=== PATIENT | male | born 1955 | race Caucasian/White ===

== ENCOUNTER 2016-12-17 12:17 | Day surgery (SDC) | payer OTHER ==
[2016-12-17 12:56] VITALS: RESP 16; TEMP 97.9
[2016-12-17] MEDS ORDERED: ALPRAZolam 0.5 MG TAB PO STA (12:57)
[2016-12-17 13:51] VITALS: BP 137/63; PULSE 89
--- NOTE | 2016-12-17 14:42 | US ---
ULTRASOUND GUIDED CORE BIOPSY RIGHT BACK SOFT TISSUE MASS: CLINICAL HISTORY: Right neck soft tissue mass FINDINGS: The procedure was explained to the patient. The risks, complications, benefits and alternatives were discussed and any questions were answered. Informed consent was obtained. Patient was placed supin e on the ultrasound table and prepped and draped in the usual sterile fashion. Utilizing a 18 gauge needle, 3 18-gauge core samples were obtained. Patient was stable throughout the procedure. Pathology is pending. All elements of maximal barrier and sterile technique were utilized. IMPRESSION: 1. Successful ultrasound guided core biopsy soft tissue mass right back
== END 2016-12-17 13:45 | disposition home or self-care (01) ==
LOC: RADPROMAIN 12:17
PROVIDERS: ATTEND Surgery
DX: C83.30 Diffuse large B-cell lymphoma, unspecified site (principal)
CPT/HCPCS: 20206; 76942; 88305; 88341; 88342

== ENCOUNTER → 2016-12-27 | Outpatient (CLI) | payer OTHER ==
--- NOTE | 2016-12-30 15:37 | PE ---
Nuclear medicine PET/CT HISTORY: Lymphoma Patient received 15.8 mCi F-18 FDG intravenously. Delayed scanning performed from the skull base to t he mid thighs. Localization and attenuation correction CT scan was formed. Correlation to prior nuclear medicine PET/CT 09/30/2014. Neck and chest: The palatine tonsils show hypermetabolic uptake, SUV 13 on the left, 8.6 on the right , jugular digastric node on the left shows SUV 4.4, interval findings. Lymph node deep to the left st ernocleidomastoid on the left shows hypermetabolic uptake, SUV 6.5 and new compared to prior. Supracl avicular node on the left shows hypermetabolic uptake, SUV 9.8. Right axillary nodes show SUV 6.4-7.5 . Chest wall laterally on the right kidney is region again noted is a mass, central decreased activit y, peripherally lesion measures SUV approximately 13-14. In the presternal location there is some sof t tissue with associated hypermetabolic uptake, SUV 13.6. The large axillary mass seen on previous exam is no longer evident. Multiple scattered foci of hyperm etabolic uptake seen on previous exam are no longer seen. Extensive emphysematous changes are present within the lungs. Right upper lobe nodule measures 12 mm has decreased in size compared to prior whe n it measured 17 mm, no significant hypermetabolic uptake. Consolidation at the left lung base has re solved.. Abdomen pelvis: Subcutaneous soft tissue mass at the level of L1-2 in the right posterior paracentral soft tissues measures 21 mm and shows SUV 13.1. Additional subcutaneous nodule along the left leg sh ows SUV 4.5 and is subcentimeter in size. The spleen is enlarged. There is a gallstone present. No re troperitoneal adenopathy. Infrarenal abdominal aorta measures 3 cm. Extensive diverticular change in the sigmoid colon. IMPRESSION: Interval changes as described. Interval development of abnormal foci within the neck is d escribed, some improvement in the right upper chest uptake.
== END | disposition home or self-care (01) ==
LOC: RADXRMAIN 13:48
PROVIDERS: ATTEND Internal Medicine Hematology & Oncology
DX: C83.39 Diffuse large B-cell lymphoma, extranodal and solid organ sites (principal); R94.8 Abnormal results of function studies of other organs and systems
CPT/HCPCS: 78815; A9552

== ENCOUNTER 2017-01-07 07:57 | Inpatient (IN) | payer OTHER ==
[2017-01-07 09:40] LABS: ALT 35 U/L (21-72); AST 24 U/L (17-59); Alkaline Phosphatase 101 U/L (38-126); Anion Gap 10 mmol/L; Blood Urea Nitrogen 23 mg/dL (9-20); Calcium 9.4 mg/dL (8.4-10.2); Carbon Dioxide 24 mmol/L (22-30); Chloride 109 mmol/L (98-107); Glucose 98 mg/dL (74-99); Non-African American GFR(MDRD) >60 (>60 ml/min/1.73 sqM); Sodium 143 mmol/L (137-145); Total Bilirubin 0.5 mg/dL (0.2-1.3); Total Protein 6.8 g/dL (6.3-8.2)
[2017-01-07 09:47] LABS: Anisocytosis Slight; Basophils % (A) 0 %; CH 30.6; CHCM 34.7; Eosinophils # (A) 0.2 k/uL (0-0.7); Eosinophils % (A) 3 %; HDW 3.78; HGB 12.9 gm/dL (13.0-17.5); Luc % (Auto) 2; Lymphocytes # (A) 0.5 k/uL (1.0-4.8); Lymphocytes % (A) 8 %; MCH 30.3 pg (25.0-35.0); Mean Platelet Volume 7.2; Monocytes # (A) 0.4 k/uL (0-1.0); Monocytes % (A) 6 %; Neutrophils # (A) 4.9 k/uL (1.3-7.7); Neutrophils % (A) 82 %; Poikilocytosis Slight; RBC 4.27 m/uL (4.30-5.90); RDW 16.2 % (11.5-15.5)
[2017-01-07] MEDS: FAMOTIDINE 20 MG/2 ML VIAL IVP SCH (10:13)
[2017-01-07] MEDS: ONDANSETRON 16 MG in SODIUM CHLORIDE 0.9% 50 ML IVPB SCH (10:13)
[2017-01-07] MEDS: SODIUM CHLORIDE 0.9% 1,000 ML IV SCH ×2 (10:14→22:06)
[2017-01-07] MEDS ORDERED: diphenhydrAMINE 50 MG/ML 1 ML VIAL IVP ONE (11:00)
[2017-01-07] MEDS ORDERED: ACETAMINOPHEN TAB 325 MG TAB PO ONE (11:00)
[2017-01-07] MEDS ORDERED: methylPREDNISolone SOD SUCCI 125 MG/2 ML VIAL IV ONE (11:00)
[2017-01-07] MEDS ORDERED: ONDANSETRON 4 MG/2 ML VIAL IVP PRN (12:00)
[2017-01-07] MEDS ORDERED: RITUXIMAB IV NR (21:00)
[2017-01-07] MEDS ORDERED: ETOPOSIDE IV SCH (21:00)
[2017-01-07] MEDS ORDERED: SODIUM CHLORIDE 0.9% IV NR (21:00)
[2017-01-07] MEDS ORDERED: SODIUM CHLORIDE 0.9% IV SCH (21:00)
[2017-01-07] MEDS: ALLOPURINOL 300 MG TAB PO SCH (22:04)
--- NOTE | 2017-01-08 00:03 | P.HPIM ---
History of Present Illness H&P Date: 01/07/17 Chief Complaint: diffuse large B cell lymphoma. High-dose infusional chemotherapy the patient is a 61-year-old white male, well known to myself. He had initially presented in 09/04 with a right lower back mass. Biopsy was positive for diffuse large B-cell non-Hodgkin's report. PET scan at that time showed evidence of adenopathy above and below the diaphragm. The patient was treated with 6 cycles of RCHOP, which he tolerated well. He appeared to have achieved a complete remission. he was followed with office visits, labs and CAT scans still 06/05 with no evidence of recurrence. He then did not keep further appointments. He then presented again in 12/07, with complains of recurrent right lower back mass. He was seen by Dr. Segura, and had a CT-guided needle biopsy, which was positive for recurrent diffuse large B cell lymphoma. He was then referred back in seen in the office. PET scan showed uptake in the neck nodes, presternal soft tissue, as well as subcutaneous tissue including the right lower back, and left thigh. Second line chemotherapy was recommended with the RICU regimen. He is being admitted for cycle 1 of the same. Review of Systems Constitutional: Denies chills, Denies fever Eyes: denies blurred vision, denies pain Ears: deny: decreased hearing, ear discharge, earache, tinnitus Ears, nose, mouth and throat: Denies headache, Denies sore throat Cardiovascular: Denies chest pain, Denies shortness of breath Respiratory: Denies cough Gastrointestinal: Denies abdominal pain, Denies diarrhea, Denies nausea, Denies vomiting Genitourinary: Reports as per HPI Musculoskeletal: Denies myalgias Integumentary: Reports as per HPI, Reports lesions ( Nodular mass and right lower back, as well as left upper thigh) Neurological: Denies numbness, Denies weakness Psychiatric: Denies anxiety, Denies depression Endocrine: Denies fatigue, Denies weight change Hematologic/Lymphatic: Reports as per HPI, Reports lymphadenopathy Past Medical History Past Medical History: Cancer, Pneumonia Additional Past Medical History / Comment(s): 2000 diagnosed with CLL treated with chemo, current mass over R scapula, pt states he now has diffuse large B cell lymphoma-here for chemo tx, pancytopenia, ITP, anemia, pneumonia with sepsis. History of Any Multi-Drug Resistant Organisms: None Reported Past Surgical History: No Surgical Hx Reported Additional Past Surgical History / Comment(s): 2015 BMA, R upper back mass- needle bx, colonoscopy-normal, power port. Past Anesthesia/Blood Transfusion Reactions: No Reported Reaction Additional Past Anesthesia/Blood Transfusion Reaction / Comment(s): Pt has received blood in the past without reaction. Smoking Status: Current every day smoker - Past Family History Father Additional Family Medical History / Comment(s): Father was an alcoholic. He committed suicide. Mother Family Medical History: Cancer Additional Family Medical History / Comment(s): Mother had Breast Cancer 25 yrs ago. She is 85yrs old. Medications and Allergies Home Medications Medication Instructions Recorded Confirmed Type Aspirin EC [Ecotrin] 325 mg PO DAILY tablet. 12/21/14 01/07/17 Rx Multivitamin [Men's Multi-Vitamin] 1 tab PO DAILY 12/11/16 01/07/17 History Vitamin B Complex 1 cap PO DAILY 12/11/16 01/07/17 History Allergies Allergy/AdvReac Type Severity Reaction Status Date / Time No Known Allergies Allergy Verified 01/07/17 08:32 Physical Exam Vitals: Vital Signs Temp Pulse Resp BP Pulse Ox 01/07/17 22:19 98.2 F 97 16 185/79 96 01/07/17 14:50 98.1 F 75 16 140/74 95 01/07/17 14:20 74 141/65 97 01/07/17 13:50 98 F 78 16 155/70 97 01/07/17 13:35 86 159/84 97 01/07/17 13:20 97.6 F 82 16 156/89 97 01/07/17 13:05 69 16 144/71 97 01/07/17 12:50 98 F 89 16 149/77 97 01/07/17 12:35 67 16 148/77 97 01/07/17 12:20 97.8 F 78 16 154/81 96 01/07/17 12:05 70 16 147/78 97 01/07/17 11:50 98.1 F 78 16 131/80 97 01/07/17 11:35 68 16 147/78 97 01/07/17 11:28 98.1 F 74 16 157/78 97 01/07/17 08:42 97.9 F 83 20 177/89 97 Intake and Output 01/07/17 01/07/17 01/08/17 14:59 22:59 06:59 Intake Total 974.9 Balance 974.9 Intake: IV 375 Sodium Chloride 0.9% 1, 375 000 ml @ 75 mls/hr IV . [id number] [facility] Rx#:[id number] Intake, IV Titration 599.9 Amount Ondansetron 16 mg In 50 Sodium Chloride 0.9% 50 ml @ 100 mls/hr IVPB Q24H [facility] Rx#:[id number] riTUXimab 740 mg In 549.9 Sodium Chloride 0.9% 500 ml @ Titrate 39 mls/hr IV .[id number] [facility] Rx#: [id number] - Constitutional General appearance: no acute distress - EENT Eyes: EOMI, PERRLA ENT: hearing grossly normal, normal oropharynx - Neck Neck: lymphadenopathy ( shortly right supraclavicular adenopathy largest 1-1.5 cm) - Respiratory Respiratory: bilateral: CTA - Cardiovascular Rhythm: regular Heart sounds: normal: S1, S2 - Gastrointestinal General gastrointestinal: normal bowel sounds, soft - Integumentary 3-4 cm firm mass with ill-defined margins, right lower back. Smaller 1.5-2 cm mass left upper thigh - Neurologic Neurologic: CNII-XII intact - Musculoskeletal Musculoskeletal: strength equal bilaterally - Psychiatric Psychiatric: A&O x's 3, appropriate affect Results CBC & Chem 7: 01/07/17 09:15 01/07/17 09:15 Labs: Abnormal Lab Results - Last 24 Hours (Table) 01/07/17 01/07/17 Range/Units 09:15 09:15 RBC 4.27 L (4.30-5.90) m/uL Hgb 12.9 L (13.0-17.5) gm/dL Hct 38.0 L (39.0-53.0) % RDW 16.2 H (11.5-15.5) % Plt Count 144 L (150-450) k/uL Lymphocytes # 0.5 L (1.0-4.8) k/uL Chloride 109 H (98-107) mmol/L BUN 23 H (9-20) mg/dL Comments: PET scan report reviewed above Thrombosis Risk Factor Assmnt - DVT/VTE Prophylaxis DVT/VTE Prophylaxis: Pharmacologic Prophylaxis ordered - Choose All That Apply Other Risk Factors: Yes Each Risk Factor Represents 2 Points: Age 61-74 years, Malignancy Other congenital or acquired thrombophilia - If yes, enter type in comment: No Thrombosis Risk Factor Assessment Total Risk Factor Score: 4 Thrombosis Risk Factor Assessment Level: Moderate Risk Assessment and Plan (1) Non-Hodgkin lymphoma Narrative/Plan: the patient has developed fairly extensive recurrence of diffuse large B- cell lymphoma. He has previously received RCHOP chemotherapy. He is being admitted for high-dose infusional RICE chemotherapy for salvage. The regimen was discussed with him in detail. He is being admitted to start cycle 1. - the patient really wanted her closely with clinical exams and labs during' s admission. Adjustment will be made to his regimen as needed. he is also on allopurinol to prevent tumor lysis Current Visit: No Status: Acute Code(s): C85.90 - NON-HODGKIN LYMPHOMA, UNSPECIFIED, UNSPECIFIED SITE SNOMED Code(s): 032893223 Plan: DVT prophylaxis
[2017-01-08 06:22] LABS: Basophils % (A) 0 %; CHCM 34.1; Eosinophils # (A) 0.2 k/uL (0-0.7); Eosinophils % (A) 2 %; HCT 35.2 % (39.0-53.0); HDW 3.81; HGB 11.6 gm/dL (13.0-17.5); Luc # (Auto) 0.03; Luc % (Auto) 0; Lymphocytes # (A) 0.3 k/uL (1.0-4.8); Lymphocytes % (A) 4 %; MCH 29.3 pg (25.0-35.0); MCV 88.7 fL (80.0-100.0); Mean Platelet Volume 6.6; Monocytes # (A) 0.3 k/uL (0-1.0); Monocytes % (A) 4 %; Neutrophils # (A) 8.4 k/uL (1.3-7.7); Neutrophils % (A) 91 %; Poikilocytosis Slight; RBC 3.97 m/uL (4.30-5.90); RDW 15.2 % (11.5-15.5); WBC 9.2 k/uL (3.8-10.6); WBC (Perox) 9.29
[2017-01-08 06:36] LABS: ALT 33 U/L (21-72); AST 18 U/L (17-59); Alkaline Phosphatase 86 U/L (38-126); Anion Gap 8 mmol/L; Blood Urea Nitrogen 23 mg/dL (9-20); Calcium 8.7 mg/dL (8.4-10.2); Carbon Dioxide 22 mmol/L (22-30); Chloride 114 mmol/L (98-107); Glucose 150 mg/dL (74-99); Non-African American GFR(MDRD) >60 (>60 ml/min/1.73 sqM); Phosphorus 2.8 mg/dL (2.5-4.5); Sodium 144 mmol/L (137-145); Total Bilirubin 0.3 mg/dL (0.2-1.3); Total Protein 5.5 g/dL (6.3-8.2); Uric Acid 5.3 mg/dL (3.5-8.5)
[2017-01-08 06:56] LABS: Potassium 4.1 mmol/L (3.5-5.1)
[2017-01-08] MEDS: MULTIVITAMINS, THERA 1 EACH TAB PO SCH (08:04)
[2017-01-08] MEDS: B COMPLEX-VIT C-VIT E-ZINC 1 EACH TAB PO SCH (08:04)
[2017-01-08] MEDS: ASPIRIN 325 MG TAB PO SCH (08:04)
[2017-01-08] MEDS: ALLOPURINOL 300 MG TAB PO SCH (08:04)
[2017-01-08] MEDS: ENOXAPARIN 40 MG/0.4 ML SYRINGE SQ SCH (09:08)
[2017-01-08] MEDS: SODIUM CHLORIDE 0.9% 1,000 ML IV SCH ×2 (09:09→23:55)
[2017-01-08] MEDS: ONDANSETRON 16 MG in SODIUM CHLORIDE 0.9% 50 ML IVPB SCH (12:37)
[2017-01-08] MEDS: DEXAMETHASONE SOD PHOSPHATE 10 MG/ML 1 ML VIAL IV SCH (12:37)
[2017-01-08] MEDS: FAMOTIDINE 20 MG/2 ML VIAL IVP SCH (12:37)
[2017-01-08] MEDS ORDERED: IFOSFAMIDE 9,000 MG, IFOSFAMIDE 1,000 MG in SODIUM CHLORIDE 0.9% 1,000 ML IV ONE (13:30)
[2017-01-08] MEDS ORDERED: MESNA IV ONE (13:30)
[2017-01-08] MEDS ORDERED: CARBOPLATIN IV ONE (13:30)
[2017-01-08] MEDS ORDERED: SODIUM CHLORIDE 0.9% IV ONE ×2 (13:30)
[2017-01-08] MEDS: SODIUM CHLORIDE 0.9% IV SCH (13:59)
[2017-01-08] MEDS: ETOPOSIDE IV SCH (13:59)
--- NOTE | 2017-01-09 01:04 | P.PN ---
Subjective Progress Note Date: 01/08/17 the patient is on day #2 of RICD infusional chemotherapy for his recurrent large B-cell lymphoma. He is tolerating treatment well so far. He denies any untoward side effects. No history of any fever/chills/nausea/vomiting/new lymphadenopathy Objective - Vital Signs Vital signs: Vital Signs Temp 96.7 F L 01/08/17 23:00 Pulse 81 01/08/17 23:00 Resp 16 01/08/17 23:00 BP 151/72 01/08/17 23:00 Pulse Ox 97 01/08/17 23:00 Intake & Output 01/08/17 01/08/17 01/09/17 06:59 18:59 06:59 Intake Total 900 1860 612 Balance 900 1860 612 Intake: IV 900 600 612 Ifosfamide 9,000 mg 220 Ifosfamide 1,000 mg In Sodium Chloride 0.9% 1, 000 ml @ 50 mls/hr IV ONCE [facility] Rx#:[id number] [place] 10,000 mg In Sodium 92 Chloride 0.9% 500 ml @ 25 mls/hr IV ONCE ONE Rx# :[id number] Sodium Chloride 0.9% 1, 900 600 300 000 ml @ 75 mls/hr IV . [id number] [facility] Rx#:[id number] Intake, IV Titration 760 Amount CARBOplatin 450 mg 250 CARBOplatin 30 mg In Sodium Chloride 0.9% 250 ml @ 596 mls/hr IV ONCE ONE Rx#:[id number] Etoposide 200 mg In 510 Sodium Chloride 0.9% ( Dehp Saroj 500 ml @ 510 mls /hr IV Q24H [facility] Rx#: [id number] Oral 500 Other: Voiding Method Toilet Toilet - Constitutional General appearance: Present: no acute distress - EENT Eyes: Present: PERRLA ENT: Present: hearing grossly normal, normal oropharynx - Respiratory Respiratory: bilateral: CTA - Cardiovascular Rhythm: regular Heart sounds: normal: S1, S2 - Gastrointestinal General gastrointestinal: Present: normal bowel sounds, soft - Integumentary Integumentary Comment(s): skin nodules on back and abdominal wall stable - Neurologic Neurologic: Present: CNII-XII intact - Musculoskeletal Musculoskeletal: Present: generalized weakness, strength equal bilaterally - Psychiatric Psychiatric: Present: A&O x's 3, appropriate affect - Labs CBC & Chem 7: 01/08/17 06:15 01/08/17 06:15 Labs: Abnormal Lab Results - Last 24 Hours (Table) 01/08/17 01/08/17 Range/Units 06:15 06:15 RBC 3.97 L (4.30-5.90) m/uL Hgb 11.6 L (13.0-17.5) gm/dL Hct 35.2 L (39.0-53.0) % Plt Count 143 L (150-450) k/uL Neutrophils # 8.4 H (1.3-7.7) k/uL Lymphocytes # 0.3 L (1.0-4.8) k/uL Chloride 114 H (98-107) mmol/L BUN 23 H (9-20) mg/dL Glucose 150 H (74-99) mg/dL Total Protein 5.5 L (6.3-8.2) g/dL Albumin 3.3 L (3.5-5.0) g/dL Assessment and Plan (1) Non-Hodgkin lymphoma Narrative/Plan: the patient is on day #2 of his high-dose infusional chemotherapy regimen, that is being administered for salvage. He is tolerating treatment well so far. Labs and vitals are satisfactory. Continue treatment per protocol. Continue to monitor with clinical exams and labs, which have been ordered. He is continuing on allopurinol, with no evidence of tumor lysis by labs so far Current Visit: No Status: Acute Code(s): C85.90 - NON-HODGKIN LYMPHOMA, UNSPECIFIED, UNSPECIFIED SITE SNOMED Code(s): 297004472 Plan: DVT prophylaxis
[2017-01-09 07:11] LABS: Phosphorus 2.8 mg/dL (2.5-4.5); Uric Acid 3.7 mg/dL (3.5-8.5)
[2017-01-09 07:59] VITALS: RESP 18
[2017-01-09] MEDS: ASPIRIN 325 MG TAB PO SCH (08:14)
[2017-01-09] MEDS: ENOXAPARIN 40 MG/0.4 ML SYRINGE SQ SCH (08:14)
[2017-01-09] MEDS: MULTIVITAMINS, THERA 1 EACH TAB PO SCH (08:14)
[2017-01-09] MEDS: ALLOPURINOL 300 MG TAB PO SCH (08:14)
[2017-01-09] MEDS: B COMPLEX-VIT C-VIT E-ZINC 1 EACH TAB PO SCH (08:14)
[2017-01-09 10:31] LABS: Anisocytosis Slight; Basophils % (A) 0 %; CH 31.3; CHCM 34.1; Eosinophils % (A) 0 %; HCT 34.2 % (39.0-53.0); HDW 3.43; HGB 11.4 gm/dL (13.0-17.5); Luc # (Auto) 0.02; Luc % (Auto) 0; Lymphocytes # (A) 0.2 k/uL (1.0-4.8); Lymphocytes % (A) 3 %; MCH 30.7 pg (25.0-35.0); MCHC 33.2 g/dL (31.0-37.0); MCV 92.5 fL (80.0-100.0); Mean Platelet Volume 8.5; Monocytes # (A) 0.2 k/uL (0-1.0); Monocytes % (A) 3 %; Neutrophils # (A) 6.9 k/uL (1.3-7.7); Neutrophils % (A) 93 %; Poikilocytosis Slight; RDW 17.3 % (11.5-15.5); WBC 7.5 k/uL (3.8-10.6); WBC (Perox) 7.91
[2017-01-09 11:31] LABS: ALT 38 U/L (21-72); AST 17 U/L (17-59); Alkaline Phosphatase 69 U/L (38-126); Anion Gap 8 mmol/L; Blood Urea Nitrogen 16 mg/dL (9-20); Carbon Dioxide 19 mmol/L (22-30); Chloride 117 mmol/L (98-107); Glucose 103 mg/dL (74-99); Non-African American GFR(MDRD) >60 (>60 ml/min/1.73 sqM); Potassium 3.5 mmol/L (3.5-5.1); Sodium 144 mmol/L (137-145); Total Bilirubin 0.3 mg/dL (0.2-1.3); Total Protein 5.2 g/dL (6.3-8.2)
[2017-01-09] MEDS: ONDANSETRON 16 MG in SODIUM CHLORIDE 0.9% 50 ML IVPB SCH (14:42)
[2017-01-09] MEDS: FAMOTIDINE 20 MG/2 ML VIAL IVP SCH (14:43)
[2017-01-09] MEDS: DEXAMETHASONE SOD PHOSPHATE 10 MG/ML 1 ML VIAL IV SCH (14:43)
[2017-01-09] MEDS: SODIUM CHLORIDE 0.9% IV SCH (15:31)
[2017-01-09] MEDS: ETOPOSIDE IV SCH (15:31)
[2017-01-09 15:59] VITALS: BP 150/79; PULSE 83; TEMP 98.7
--- NOTE | 2017-04-19 22:18 | P.DS ---
Providers Date of admission: 01/07/17 07:57 Expected date of discharge: 01/09/17 Attending physician: Jeffry Andrade Primary care physician: Stated None - Discharge Diagnosis(es) (1) Non-Hodgkin lymphoma Status: Chronic Priority: High Hospital Course: The patient is a 61-year-old white male, well known to myself. He had initially presented in 09/04 with a right lower back mass. Biopsy was positive for diffuse large B-cell non-Hodgkin's report. PET scan at that time showed evidence of adenopathy above and below the diaphragm. The patient was treated with 6 cycles of RCHOP, which he tolerated well. He appeared to have achieved a complete remission. he was followed with office visits, labs and CAT scans still 06/05 with no evidence of recurrence. He then did not keep further appointments. He then presented again in 12/07, with complains of recurrent right lower back mass. He was seen by Dr. Segura, and had a CT-guided needle biopsy, which was positive for recurrent diffuse large B cell lymphoma. He was then referred back in seen in the office. PET scan showed uptake in the neck nodes, presternal soft tissue, as well as subcutaneous tissue including the right lower back, and left thigh. Second line chemotherapy was recommended with the RICU regimen. He was admitted for cycle 1 of the same. The pt tolerated chemo well, with no untoward side effects. He was monitored with labs and clinical exams. After completion of of chemo, it was decided to discharge him home. Procedures: High dose infusional chemo Patient Condition at Discharge: Good Plan - Discharge Summary Discharge Rx Participant: No New Discharge Prescriptions: New Ondansetron HCl [Zofran] 4 mg PO Q6HR PRN #50 tab PRN Reason: Nausea And Vomiting No Action Multivitamin [Men's Multi-Vitamin] 1 tab PO DAILY Vitamin B Complex 1 cap PO DAILY Folic Acid 0.4 mg PO DAILY Ferrous Sulfate [Feosol] 325 mg PO Q72H Cyanocobalamin (Vitamin B-12) [Vitamin B-12] 1,000 mcg PO DAILY Aspirin EC [Ecotrin Low Dose] 81 mg PO DAILY Filgrastim Sndz [Neupogen] 480 mcg IJ DIRECTED Atorvastatin [Lipitor] 40 mg PO DAILY #30 tab Isosorbide Mononitrate ER [Imdur] 30 mg PO DAILY #30 tab Metoprolol Succinate (ER) [Toprol XL] 25 mg PO DAILY #30 tab.er.24h Discharge Medication List Multivitamin [Men's Multi-Vitamin] 1 tab PO DAILY 12/11/16 [History] Vitamin B Complex 1 cap PO DAILY 12/11/16 [History] Ondansetron HCl [Zofran] 4 mg PO Q6HR PRN #50 tab 01/09/17 [Rx] Cyanocobalamin (Vitamin B-12) [Vitamin B-12] 1,000 mcg PO DAILY 02/18/17 [ History] Ferrous Sulfate [Feosol] 325 mg PO Q72H 02/18/17 [History] Folic Acid 0.4 mg PO DAILY 02/18/17 [History] Aspirin EC [Ecotrin Low Dose] 81 mg PO DAILY 03/17/17 [History] Filgrastim Sndz [Neupogen] 480 mcg IJ DIRECTED 04/15/17 [History] Atorvastatin [Lipitor] 40 mg PO DAILY #30 tab 04/16/17 [Rx] Isosorbide Mononitrate ER [Imdur] 30 mg PO DAILY #30 tab 04/16/17 [Rx] Metoprolol Succinate (ER) [Toprol XL] 25 mg PO DAILY #30 tab.er.24h 04/16/17 [Rx ] Follow up Appointment(s)/Referral(s): Jeffry Andrade MD [STAFF PHYSICIAN] - 01/12/17 9:45 am (At [facility] Office) Patient Instructions/Handouts: Allopurinol (By mouth), Ondansetron (By mouth), Oral Mucositis (DC) Discharge Disposition: HOME SELF-CARE
== END 2017-01-09 18:36 | disposition home or self-care (01) | DRG 847 ==
LOC: 5ONC 07:57
PROVIDERS: ADMIT Internal Medicine Hematology & Oncology; ATTEND Internal Medicine Hematology & Oncology
PROC: 3E0W305 Introduction of Other Antineoplastic into Lymphatics, Percutaneous Approach (ICD-10-PCS; principal; 2017-01-07)
DX: Z51.11 Encounter for antineoplastic chemotherapy (principal); C83.30 Diffuse large B-cell lymphoma, unspecified site; D69.3 Immune thrombocytopenic purpura; F17.200 Nicotine dependence, unspecified, uncomplicated; R53.1 Weakness; Z79.82 Long term (current) use of aspirin; Z80.3 Family history of malignant neoplasm of breast; Z81.1 Family history of alcohol abuse and dependence; Z87.01 Personal history of pneumonia (recurrent)
CPT/HCPCS: 80053; 84100; 84550; 85025

== ENCOUNTER 2017-01-28 07:56 | Inpatient (IN) | payer OTHER ==
[2017-01-28] MEDS ORDERED: ONDANSETRON 4 MG/2 ML VIAL IVP PRN (08:00)
[2017-01-28] MEDS: SODIUM CHLORIDE 0.9% 1,000 ML IV SCH (10:26)
[2017-01-28] MEDS: ALLOPURINOL 300 MG TAB PO SCH (10:28)
[2017-01-28 10:46] LABS: Anisocytosis Moderate; Basophils % (A) 0 %; CH 29.5; CHCM 35.1; Eosinophils % (A) 0 %; HCT 28.9 % (39.0-53.0); HDW 3.84; HGB 10.1 gm/dL (13.0-17.5); Luc % (Auto) 1; Lymphocytes # (A) 0.3 k/uL (1.0-4.8); Lymphocytes % (A) 4 %; MCH 29.6 pg (25.0-35.0); MCHC 34.8 g/dL (31.0-37.0); Mean Platelet Volume 7.7; Monocytes # (A) 0.3 k/uL (0-1.0); Monocytes % (A) 4 %; Neutrophils # (A) 7.9 k/uL (1.3-7.7); Neutrophils % (A) 91 %; Poikilocytosis Slight; RDW 20.1 % (11.5-15.5); WBC 8.7 k/uL (3.8-10.6); WBC (Perox) 9.64
[2017-01-28 11:07] LABS: MCV 84.9 fL (80.0-100.0)
[2017-01-28 11:15] LABS: ALT 44 U/L (21-72); AST 21 U/L (17-59); Alkaline Phosphatase 120 U/L (38-126); Anion Gap 8 mmol/L; Blood Urea Nitrogen 18 mg/dL (9-20); Calcium 9.1 mg/dL (8.4-10.2); Carbon Dioxide 22 mmol/L (22-30); Chloride 111 mmol/L (98-107); Glucose 108 mg/dL (74-99); Non-African American GFR(MDRD) >60 (>60 ml/min/1.73 sqM); Potassium 3.9 mmol/L (3.5-5.1); Sodium 141 mmol/L (137-145); Total Bilirubin 0.2 mg/dL (0.2-1.3); Total Protein 6.3 g/dL (6.3-8.2)
[2017-01-28] MEDS ORDERED: ACETAMINOPHEN TAB 325 MG TAB PO ONE ×2 (12:00→21:00)
[2017-01-28] MEDS ORDERED: diphenhydrAMINE 50 MG/ML 1 ML VIAL IVP ONE ×2 (12:00→21:00)
[2017-01-28] MEDS ORDERED: SODIUM CHLORIDE 0.9% IV ONE (13:00)
[2017-01-28] MEDS ORDERED: RITUXIMAB IV ONE (13:00)
[2017-01-28] MEDS ORDERED: ETOPOSIDE 200 MG in SODIUM CHLORIDE 0.9% 500 ML IV SCH (17:00)
[2017-01-28] MEDS ORDERED: FAMOTIDINE 20 MG/2 ML VIAL IV SCH (21:00)
[2017-01-28] MEDS ORDERED: ONDANSETRON 16 MG in SODIUM CHLORIDE 0.9% 50 ML IVPB SCH (21:00)
[2017-01-28] MEDS ORDERED: methylPREDNISolone SOD SUCCI 125 MG/2 ML VIAL IV ONE (21:00)
--- NOTE | 2017-01-28 21:57 | P.HPIM ---
History of Present Illness H&P Date: 01/28/17 Chief Complaint: High dose infusional chemo for Diffuse Large B Cell Lymphoma The patient is a 61-year-old white male, well known to myself. He had initially presented in 09/04 with a right lower back mass. Biopsy was positive for diffuse large B-cell non-Hodgkin's report. PET scan at that time showed evidence of adenopathy above and below the diaphragm. The patient was treated with 6 cycles of RCHOP, which he tolerated well. He appeared to have achieved a complete remission. he was followed with office visits, labs and CAT scans still 06/05 with no evidence of recurrence. He then did not keep further appointments. He then presented again in 12/07, with complains of recurrent right lower back mass. He was seen by Dr. Segura, and had a CT-guided needle biopsy, which was positive for recurrent diffuse large B cell lymphoma. He was then referred back in seen in the office. PET scan showed uptake in the neck nodes, presternal soft tissue, as well as subcutaneous tissue including the right lower back, and left thigh. Second line chemotherapy was recommended with the RICE regimen. He has completed 1 cycle, which he tolerated well. He is being admitted for cycle 2 of the same. Review of Systems Constitutional: Reports fatigue Eyes: denies blurred vision, denies pain Ears: deny: decreased hearing, ear discharge, earache, tinnitus Ears, nose, mouth and throat: Denies headache, Denies sore throat Cardiovascular: Denies chest pain, Denies shortness of breath Respiratory: Denies cough Gastrointestinal: Denies abdominal pain, Denies diarrhea, Denies nausea, Denies vomiting Genitourinary: Reports as per HPI Musculoskeletal: Denies myalgias Integumentary: Reports lesions ([place] back nodule resolved. Rt upper back nodule diminished) Neurological: Denies numbness, Denies weakness Psychiatric: Denies anxiety, Denies depression Hematologic/Lymphatic: Reports as per HPI, Reports lymphadenopathy Past Medical History Past Medical History: Cancer, Pneumonia Additional Past Medical History / Comment(s): 2000 diagnosed with CLL treated with chemo, recurrent mass R scapula area, pt states he now has diffuse large B cell lymphoma-here for chemo tx, pancytopenia, ITP, anemia, pneumonia with sepsis. History of Any Multi-Drug Resistant Organisms: None Reported Past Surgical History: No Surgical Hx Reported Additional Past Surgical History / Comment(s): 2015 BMA, R upper back mass- needle bxs, colonoscopy-normal, power port. Past Anesthesia/Blood Transfusion Reactions: No Reported Reaction Additional Past Anesthesia/Blood Transfusion Reaction / Comment(s): Pt has received blood in the past without reaction. Smoking Status: Current every day smoker - Past Family History Father Additional Family Medical History / Comment(s): Father was an alcoholic. He committed suicide. Mother Family Medical History: Cancer Additional Family Medical History / Comment(s): Mother had Breast Cancer 25 yrs ago. She is 85yrs old. Medications and Allergies Home Medications Medication Instructions Recorded Confirmed Type Aspirin EC [Ecotrin] 325 mg PO DAILY tablet. 12/21/14 01/28/17 Rx Multivitamin [Men's Multi-Vitamin] 1 tab PO DAILY 12/11/16 01/28/17 History Vitamin B Complex 1 cap PO DAILY 12/11/16 01/28/17 History Allopurinol [Zyloprim] 300 mg PO DAILY #14 tablet 01/09/17 01/28/17 Rx Ondansetron HCl [Zofran] 4 mg PO Q6HR PRN #50 tab 01/09/17 01/28/17 Rx Allergies Allergy/AdvReac Type Severity Reaction Status Date / Time No Known Allergies Allergy Verified 01/28/17 09:18 Physical Exam Vitals: Vital Signs Temp Pulse Resp BP Pulse Ox 01/28/17 14:16 98.9 F 89 14 143/76 98 01/28/17 08:29 98.6 F 89 14 145/81 98 Intake and Output 01/28/17 01/28/17 01/28/17 06:59 14:59 22:59 Intake Total 316.1 414.900 Balance 316.1 414.900 Intake: IV 262.5 Sodium Chloride 0.9% 1, 262.5 000 ml @ 75 mls/hr IV . [id number] [facility] Rx#:[id number] Intake, IV Titration 53.6 414.900 Amount riTUXimab 740 mg In 53.6 414.900 Sodium Chloride 0.9% 500 ml @ Titrate IV .Q0M [facility] Rx#:[id number] Other: Weight 79 kg Patient Weight 01/29/17 06:59 Weight 79 kg - Constitutional General appearance: no acute distress - EENT Eyes: EOMI, PERRLA ENT: hearing grossly normal, normal oropharynx - Neck Neck: no lymphadenopathy Thyroid: bilateral: normal size - Respiratory Respiratory: bilateral: CTA - Cardiovascular Rhythm: regular Heart sounds: normal: S1, S2 - Gastrointestinal General gastrointestinal: normal bowel sounds, soft - Integumentary lower mid back nodule resolved Rt upper back nodule significantly smaller - Neurologic Neurologic: CNII-XII intact - Musculoskeletal Musculoskeletal: strength equal bilaterally - Psychiatric Psychiatric: A&O x's 3, appropriate affect Results CBC & Chem 7: 01/28/17 10:10 01/28/17 10:10 Labs: Abnormal Lab Results - Last 24 Hours (Table) 01/28/17 01/28/17 Range/Units 10:10 10:10 RBC 3.40 L (4.30-5.90) m/uL Hgb 10.1 L (13.0-17.5) gm/dL Hct 28.9 L (39.0-53.0) % RDW 20.1 H (11.5-15.5) % Neutrophils # 7.9 H (1.3-7.7) k/uL Lymphocytes # 0.3 L (1.0-4.8) k/uL Chloride 111 H (98-107) mmol/L Glucose 108 H (74-99) mg/dL Thrombosis Risk Factor Assmnt - DVT/VTE Prophylaxis DVT/VTE Prophylaxis: Pharmacologic Prophylaxis ordered - Choose All That Apply Any of the Below Risk Factors Present?: Yes Other Risk Factors: Yes Each Risk Factor Represents 2 Points: Age 61-74 years, Malignancy Other congenital or acquired thrombophilia - If yes, enter type in comment: No Thrombosis Risk Factor Assessment Total Risk Factor Score: 4 Thrombosis Risk Factor Assessment Level: Moderate Risk Assessment and Plan (1) Non-Hodgkin lymphoma Narrative/Plan: The pt has completed 1 cycle of salvage chemo with R-ICE with good tolerance. He has had a clinical response, with improvement in the palpable skin nodules. He is being admitted for cycle #2. This will be given per protocol, with monitoring with labs and clinical exams Current Visit: No Status: Acute Code(s): C85.90 - NON-HODGKIN LYMPHOMA, UNSPECIFIED, UNSPECIFIED SITE SNOMED Code(s): 446412970 (2) Anemia aplastic aregenerative Narrative/Plan: Due to chemo. Hgb is in a safe range at > 10. Continue to monitor Current Visit: No Status: Acute Code(s): D61.9 - APLASTIC ANEMIA, UNSPECIFIED SNOMED Code(s): 342944210 Plan: DVT prophylaxis
[2017-01-28] MEDS: ENOXAPARIN 40 MG/0.4 ML SYRINGE SQ SCH (23:36)
[2017-01-29] MEDS: SODIUM CHLORIDE 0.9% 1,000 ML IV SCH ×2 (00:33→11:55)
[2017-01-29 06:30] LABS: Anisocytosis Slight; Basophils % (A) 0 %; CH 30.1; CHCM 35.2; Eosinophils % (A) 0 %; HCT 23.9 % (39.0-53.0); Luc % (Auto) 1; Lymphocytes # (A) 0.3 k/uL (1.0-4.8); Lymphocytes % (A) 2 %; MCH 29.4 pg (25.0-35.0); MCHC 34.1 g/dL (31.0-37.0); MCV 86.1 fL (80.0-100.0); Mean Platelet Volume 7.7; Monocytes # (A) 0.4 k/uL (0-1.0); Monocytes % (A) 2 %; Neutrophils # (A) 16.6 k/uL (1.3-7.7); Neutrophils % (A) 95 %; Poikilocytosis Moderate; RBC 2.78 m/uL (4.30-5.90); RDW 19.2 % (11.5-15.5); WBC 17.5 k/uL (3.8-10.6); WBC (Perox) 17.26
[2017-01-29 06:42] LABS: ALT 41 U/L (21-72); AST 19 U/L (17-59); Alkaline Phosphatase 109 U/L (38-126); Anion Gap 8 mmol/L; Blood Urea Nitrogen 16 mg/dL (9-20); Calcium 8.8 mg/dL (8.4-10.2); Carbon Dioxide 21 mmol/L (22-30); Chloride 112 mmol/L (98-107); Glucose 128 mg/dL (74-99); Non-African American GFR(MDRD) >60 (>60 ml/min/1.73 sqM); Potassium 4.1 mmol/L (3.5-5.1); Sodium 141 mmol/L (137-145); Total Bilirubin 0.3 mg/dL (0.2-1.3); Total Protein 5.9 g/dL (6.3-8.2)
[2017-01-29 06:44] LABS: HGB 8.2 gm/dL (13.0-17.5)
[2017-01-29] MEDS ORDERED: DOCUSATE 100 MG CAP PO PRN (08:33)
[2017-01-29] MEDS: ALLOPURINOL 300 MG TAB PO SCH (09:09)
[2017-01-29] MEDS: SALT AND SODA MOUTHWASH 1,000 ML PO SCH ×3 (11:55→21:59)
[2017-01-29] MEDS: DEXAMETHASONE SOD PHOSPHATE 10 MG/ML 1 ML VIAL IV SCH (17:45)
[2017-01-29] MEDS: FAMOTIDINE 20 MG/2 ML VIAL IV SCH (17:45)
[2017-01-29] MEDS: ONDANSETRON 16 MG in SODIUM CHLORIDE 0.9% 50 ML IVPB SCH (17:47)
--- NOTE | 2017-01-29 18:02 | P.PN ---
Subjective Progress Note Date: 01/29/17 Principal diagnosis: DLBCL, admit for R-ICE Pt seen in f/u, he denies fever, oral irritation, nausea, SOB, cough, indigestion, diarrhea, constipation, rash, swelling, bleeding or pain, he is fully ambulatory, appetite fair, energy levels ok. Objective - Vital Signs Vital signs: Vital Signs Temp 98 F 01/29/17 14:58 Pulse 92 01/29/17 14:58 Resp 18 01/29/17 14:58 BP 146/84 01/29/17 14:58 Pulse Ox 96 01/29/17 14:58 Intake & Output 01/28/17 01/29/17 01/29/17 18:59 06:59 18:59 Intake Total 391.036 3987 600 Balance 864.566 0647 600 Weight 79 kg Intake: IV 262.5 225 600 Sodium Chloride 0.9% 1, 262.5 225 600 000 ml @ 75 mls/hr IV . [id number] [facility] Rx#:[id number] Intake, IV Titration 468.500 450 Amount Etoposide 200 mg In 450 Sodium Chloride 0.9% 500 ml @ 510 mls/hr IV Q24H [facility] Rx#:[id number] riTUXimab 740 mg In 468.500 Sodium Chloride 0.9% 500 ml @ Titrate IV .Q0M [facility] Rx#:[id number] Oral 590 Other: # Voids 2 - Constitutional General appearance: Present: average body habitus, cooperative, no acute distress - EENT Eyes: Present: anicteric sclerae, normal appearance ENT: Present: normal oropharynx - Respiratory Respiratory: left: rales (lower lobe only), bilateral: CTA - Cardiovascular Rhythm: regular Heart sounds: normal: S1, S2 Abnormal Heart Sounds: Absent: systolic murmur, diastolic murmur, rub, S3 Gallop , S4 Gallop, click, other - Gastrointestinal General gastrointestinal: Present: normal bowel sounds, soft. Absent: absent bowel sounds, decreased bowel sounds, distended, hepatomegaly, hyperactive bowel sounds, organomegaly, rigid, scaphoid, splenomegaly, tenderness, umbilical hernia, ventral hernia - Integumentary Integumentary: Present: normal, normal turgor - Neurologic Neurologic: Present: CNII-XII intact - Musculoskeletal Musculoskeletal: Present: strength equal bilaterally - Psychiatric Psychiatric: Present: A&O x's 3, appropriate affect, intact judgment & insight - Labs CBC & Chem 7: 01/29/17 06:15 01/29/17 06:15 Labs: Abnormal Lab Results - Last 24 Hours (Table) 01/29/17 01/29/17 Range/Units 06:15 06:15 WBC 17.5 H (3.8-10.6) k/uL RBC 2.78 L (4.30-5.90) m/uL Hgb 8.2 L D (13.0-17.5) gm/dL Hct 23.9 L (39.0-53.0) % RDW 19.2 H (11.5-15.5) % Neutrophils # 16.6 H (1.3-7.7) k/uL Lymphocytes # 0.3 L (1.0-4.8) k/uL Chloride 112 H (98-107) mmol/L Carbon Dioxide 21 L (22-30) mmol/L Glucose 128 H (74-99) mg/dL Total Protein 5.9 L (6.3-8.2) g/dL Assessment and Plan (1) Non-Hodgkin lymphoma Narrative/Plan: Cont R-ICE chemo regimen without adjustment, supportive meds ordered. Current Visit: Yes Status: Acute Priority: High Code(s): C85.90 - NON- HODGKIN LYMPHOMA, UNSPECIFIED, UNSPECIFIED SITE SNOMED Code(s): 833575097 (2) Anemia aplastic aregenerative Narrative/Plan: Hgb drop noted, labs daily, no transfusion at this time. Current Visit: No Status: Chronic Priority: Medium Code(s): D61.9 - APLASTIC ANEMIA, UNSPECIFIED SNOMED Code(s): 216051828 Plan: GI/DVT prophylaxis IS ordered for LLL crackles
[2017-01-29] MEDS: ETOPOSIDE 200 MG in SODIUM CHLORIDE 0.9% 500 ML IV SCH (19:50)
[2017-01-29] MEDS ORDERED: CARBOPLATIN IV ONE (20:00)
[2017-01-29] MEDS ORDERED: SODIUM CHLORIDE 0.9% IV ONE ×2 (20:00→21:00)
[2017-01-29] MEDS ORDERED: IFOSFAMIDE 9,000 MG, IFOSFAMIDE 1,000 MG in SODIUM CHLORIDE 0.9% 1,000 ML IV ONE (21:00)
[2017-01-29] MEDS ORDERED: MESNA IV ONE (21:00)
[2017-01-29] MEDS: ENOXAPARIN 40 MG/0.4 ML SYRINGE SQ SCH (21:59)
[2017-01-30] MEDS: SALT AND SODA MOUTHWASH 1,000 ML PO SCH ×5 (00:27→23:58)
[2017-01-30] MEDS: SODIUM CHLORIDE 0.9% 1,000 ML IV SCH ×2 (03:29→13:37)
[2017-01-30 06:39] LABS: ALT 53 U/L (21-72); AST 25 U/L (17-59); Alkaline Phosphatase 97 U/L (38-126); Anion Gap 10 mmol/L; Blood Urea Nitrogen 15 mg/dL (9-20); Calcium 8.6 mg/dL (8.4-10.2); Carbon Dioxide 20 mmol/L (22-30); Chloride 114 mmol/L (98-107); Glucose 134 mg/dL (74-99); Non-African American GFR(MDRD) >60 (>60 ml/min/1.73 sqM); Potassium 4.1 mmol/L (3.5-5.1); Sodium 144 mmol/L (137-145); Total Bilirubin 0.2 mg/dL (0.2-1.3); Total Protein 6.2 g/dL (6.3-8.2)
[2017-01-30 06:41] LABS: Anisocytosis Slight; CH 30.2; CHCM 34.8; HCT 31.1 % (39.0-53.0); HGB 10.3 gm/dL (13.0-17.5); MCH 29.1 pg (25.0-35.0); MCHC 33.2 g/dL (31.0-37.0); MCV 87.7 fL (80.0-100.0); Mean Platelet Volume 7.6; Poikilocytosis Moderate; RBC 3.54 m/uL (4.30-5.90); RDW 19.4 % (11.5-15.5); WBC 12.6 k/uL (3.8-10.6)
[2017-01-30 07:01] LABS: Add Differential Manual Differential
[2017-01-30 07:03] LABS: Manual Review Performed; Nucleated Red Blood Cells 0 /100 WBC (0-0); Total Cells Counted 100
[2017-01-30] MEDS: ALLOPURINOL 300 MG TAB PO SCH (08:54)
--- NOTE | 2017-01-30 18:39 | P.PN ---
Subjective Progress Note Date: 01/30/17 Principal diagnosis: Diffuse large B-cell non-Hodgkin's lymphoma. Infusional high-dose chemotherapy Objective - Vital Signs Vital signs: Vital Signs Temp 98.0 F 01/30/17 15:00 Pulse 88 01/30/17 15:00 Resp 18 01/30/17 15:00 BP 126/77 01/30/17 15:00 Pulse Ox 99 01/30/17 15:00 Intake & Output 01/29/17 01/30/17 01/30/17 18:59 06:59 18:59 Intake Total 600 1453 600 Balance 600 1453 600 Intake: IV 600 225 600 Sodium Chloride 0.9% 1, 600 225 600 000 ml @ 75 mls/hr IV . [id number] [facility] Rx#:[id number] Intake, IV Titration 1228 Amount CARBOplatin 450 mg 250 CARBOplatin 130 mg In Sodium Chloride 0.9% 250 ml @ 616 mls/hr IV ONCE ONE Rx#:[id number] Etoposide 200 mg In 510 Sodium Chloride 0.9% 500 ml @ 510 mls/hr IV Q24H [facility] Rx#:[id number] Ifosfamide 9,000 mg 312 Ifosfamide 1,000 mg In Sodium Chloride 0.9% 1, 000 ml @ 50 mls/hr IV ONCE ONE Rx#:[id number] [place] 10,000 mg In Sodium 156 Chloride 0.9% 500 ml @ 25 mls/hr IV ONCE ONE Rx# :[id number] Other: # Voids 1 - Constitutional General appearance: Present: no acute distress - EENT Eyes: Present: EOMI, PERRLA ENT: Present: hearing grossly normal, normal oropharynx - Respiratory Respiratory: bilateral: CTA - Cardiovascular Rhythm: regular Heart sounds: normal: S1, S2 - Gastrointestinal General gastrointestinal: Present: normal bowel sounds, soft - Integumentary Integumentary Comment(s): Improvement in right upper back nodule - Neurologic Neurologic: Present: CNII-XII intact - Musculoskeletal Musculoskeletal: Present: strength equal bilaterally - Psychiatric Psychiatric: Present: A&O x's 3, appropriate affect - Labs CBC & Chem 7: 01/30/17 06:10 01/30/17 06:10 Labs: Abnormal Lab Results - Last 24 Hours (Table) 01/30/17 01/30/17 Range/Units 06:10 06:10 WBC 12.6 H (3.8-10.6) k/uL RBC 3.54 L (4.30-5.90) m/uL Hgb 10.3 L (13.0-17.5) gm/dL Hct 31.1 L (39.0-53.0) % RDW 19.4 H (11.5-15.5) % Neutrophils # (Manual) 11.97 H (1.3-7.7) k/uL Lymphocytes # (Manual) 0.25 L (1.0-4.8) k/uL Chloride 114 H (98-107) mmol/L Carbon Dioxide 20 L (22-30) mmol/L Glucose 134 H (74-99) mg/dL Total Protein 6.2 L (6.3-8.2) g/dL Assessment and Plan (1) Non-Hodgkin lymphoma Narrative/Plan: The patient is on day #3 of cycle #2 of R-ICE chemotherapy. He continues to tolerate treatment well, and reports no new side effects. Clinical exam is satisfactory. Continue treatment per protocol. He will be discharged after completion of treatment, assuming no new complications. Follow-up in the office has already been set up. Current Visit: Yes Status: Acute Priority: High Code(s): C85.90 - NON- HODGKIN LYMPHOMA, UNSPECIFIED, UNSPECIFIED SITE SNOMED Code(s): 855360016 (2) Anemia aplastic aregenerative Narrative/Plan: Hemoglobin was noted to have dropped yesterday into the 8 range. However today is back up into the 10-11 range which is his baseline. Therefore it is felt that yesterday's value was likely a lab error. Other blood counts are in a safe range. The patient will receive Neulasta, post discharge, on 02/02/17 Current Visit: No Status: Chronic Priority: Medium Code(s): D61.9 - APLASTIC ANEMIA, UNSPECIFIED SNOMED Code(s): 463320475
[2017-01-30] MEDS: FAMOTIDINE 20 MG/2 ML VIAL IV SCH (23:57)
[2017-01-30] MEDS: DEXAMETHASONE SOD PHOSPHATE 10 MG/ML 1 ML VIAL IV SCH (23:58)
[2017-01-30] MEDS: ENOXAPARIN 40 MG/0.4 ML SYRINGE SQ SCH (23:58)
[2017-01-30] MEDS: ONDANSETRON 16 MG in SODIUM CHLORIDE 0.9% 50 ML IVPB SCH (23:58)
[2017-01-31] MEDS: ETOPOSIDE 200 MG in SODIUM CHLORIDE 0.9% 500 ML IV SCH (00:43)
[2017-01-31] MEDS: SALT AND SODA MOUTHWASH 1,000 ML PO SCH ×2 (00:45→06:24)
[2017-01-31] MEDS: SODIUM CHLORIDE 0.9% 1,000 ML IV SCH (06:24)
[2017-01-31 06:33] LABS: Anisocytosis Slight; Basophils % (A) 0 %; CH 29.9; CHCM 34.3; Eosinophils % (A) 1 %; HCT 30.4 % (39.0-53.0); HDW 3.92; HGB 9.9 gm/dL (13.0-17.5); Luc # (Auto) 0.01; Luc % (Auto) 0; Lymphocytes # (A) 0.1 k/uL (1.0-4.8); Lymphocytes % (A) 1 %; MCH 28.7 pg (25.0-35.0); MCHC 32.7 g/dL (31.0-37.0); Mean Platelet Volume 7.2; Monocytes # (A) 0.1 k/uL (0-1.0); Monocytes % (A) 2 %; Neutrophils # (A) 8.7 k/uL (1.3-7.7); Neutrophils % (A) 97 %; Poikilocytosis Slight; RBC 3.45 m/uL (4.30-5.90); RDW 19.1 % (11.5-15.5); WBC 8.9 k/uL (3.8-10.6); WBC (Perox) 9.18
[2017-01-31 07:00] LABS: ALT 47 U/L (21-72); AST 21 U/L (17-59); Alkaline Phosphatase 88 U/L (38-126); Anion Gap 7 mmol/L; Blood Urea Nitrogen 16 mg/dL (9-20); Calcium 8.9 mg/dL (8.4-10.2); Carbon Dioxide 21 mmol/L (22-30); Chloride 114 mmol/L (98-107); Glucose 125 mg/dL (74-99); Non-African American GFR(MDRD) >60 (>60 ml/min/1.73 sqM); Potassium 4.6 mmol/L (3.5-5.1); Sodium 142 mmol/L (137-145); Total Bilirubin 0.3 mg/dL (0.2-1.3); Total Protein 5.9 g/dL (6.3-8.2)
--- NOTE | 2017-01-31 08:17 | P.DS ---
Providers Date of admission: 01/28/17 07:56 Expected date of discharge: 01/31/17 Attending physician: Jeffry Andrade Primary care physician: Ronald Grewal - Discharge Diagnosis(es) (1) Non-Hodgkin lymphoma Current Visit: Yes Status: Acute Priority: High (2) Anemia aplastic aregenerative Current Visit: No Status: Chronic Priority: Medium Hospital Course: The patient was admitted to the hospital for cycle #2 of high dose infusional chemotherapy, specifically the R-ICE regimen. He has a history of diffuse large B-cell non-Hodgkin's lymphoma, initially treated with RCHOP, followed by relapse. is on salvage chemotherapy. He tolerated cycle 1 quite well. The patient completed treatment for protocol. He was monitored with clinical exams and labs. He had no untoward side effects. His lab did show a mild anemia, that remained stable and did not require intervention. After completion of treatment, the patient was therefore discharged home. Pertinent Studies: None Procedures: High dose infusional chemotherapy Patient Condition at Discharge: Good Plan - Discharge Summary Discharge Rx Participant: No New Discharge Prescriptions: No Action Aspirin EC [Ecotrin] 325 mg PO DAILY tablet. Multivitamin [Men's Multi-Vitamin] 1 tab PO DAILY Vitamin B Complex 1 cap PO DAILY Ondansetron HCl [Zofran] 4 mg PO Q6HR PRN #50 tab PRN Reason: Nausea And Vomiting Allopurinol [Zyloprim] 300 mg PO DAILY #14 tablet Discharge Medication List Aspirin EC [Ecotrin] 325 mg PO DAILY tablet. 12/21/14 [Rx] Multivitamin [Men's Multi-Vitamin] 1 tab PO DAILY 12/11/16 [History] Vitamin B Complex 1 cap PO DAILY 12/11/16 [History] Allopurinol [Zyloprim] 300 mg PO DAILY #14 tablet 01/09/17 [Rx] Ondansetron HCl [Zofran] 4 mg PO Q6HR PRN #50 tab 01/09/17 [Rx] Follow up Appointment(s)/Referral(s): Jeffry Andrade MD [STAFF PHYSICIAN] - 02/02/17 10:30 am ( The patient is to come to the [facility] office for Neulasta injection at this time and date)
[2017-01-31 08:45] VITALS: BP 151/83; PULSE 72; RESP 18; TEMP 98.3
[2017-01-31] MEDS: ALLOPURINOL 300 MG TAB PO SCH (08:57)
== END 2017-01-31 09:16 | disposition home or self-care (01) | DRG 696 ==
LOC: 5ONC 07:56
PROVIDERS: ADMIT Internal Medicine Hematology & Oncology; ATTEND Internal Medicine Hematology & Oncology
DX: Z51.11 Encounter for antineoplastic chemotherapy (principal); D61.9 Aplastic anemia, unspecified; D69.3 Immune thrombocytopenic purpura; C83.38 Diffuse large B-cell lymphoma, lymph nodes of multiple sites; F17.200 Nicotine dependence, unspecified, uncomplicated; T45.1X5A Adverse effect of antineoplastic and immunosuppressive drugs, initial encounter; Z79.82 Long term (current) use of aspirin; Z80.3 Family history of malignant neoplasm of breast; Z81.1 Family history of alcohol abuse and dependence
CPT/HCPCS: 80053; 85025

== ENCOUNTER → 2017-02-07 | Outpatient (CLI) | payer OTHER ==
--- NOTE | 2017-02-09 15:15 | PE ---
Nuclear medicine PET/CT HISTORY: Diffuse large B-cell lymphoma PS, subsequent Patient received 15.2 mCi F-18 FDG intravenously in delayed scanning was performed from the skull bas e to the mid thighs. Localization and attenuation correction CT scan was performed. Correlation to prior nuclear medicine PET/CT 12/27/2016 Neck and chest: Right-sided Port-A-Cath is present with port in the right pectoral region, right jugu lar catheter courses to the level of the superior vena cava right atrium junction. Coronary calcifica tions are present. Soft tissue mass present at the left lung base laterally is poorly defined, simila r to prior exam measuring approximately 19 mm in greatest dimension similar to prior. There is no ple ural or pericardial effusion. Calcified nodule present in the lingula measures only 2 to 3 mm. Emphys ematous changes are present at the lung apices. Right upper lobe lung mass along the fissure is appro ximately stable at 11 mm compared to previous at 12 mm. Nodular density on axial image 105 is poorly defined and measures approximately 7 to 8 mm and measured only 5 to 6 mm on previous. Probable scarri ng present in the inferior aspect of the right middle lobe anteriorly in the subpleural location. No hypermetabolic uptake within the lungs. The abnormal uptake seen on previous exam, abnormal soft tiss ue masses have resolved. The large soft tissue mass adjacent to the inferior aspect of the inferior right scapula has diminish ed in size and activity, SUV only 2.7 Abdomen pelvis: No retroperitoneal adenopathy. No suspicious hypermetabolic uptake. Limited dissectio n or ulcer likely present in the infrarenal abdominal aorta. Extensive diverticular change noted with in the sigmoid colon. No pelvic adenopathy. Prostate is enlarged. The spleen is less enlarged. Osseous structures show diffuse increased marrow uptake possibly due to treatment. IMPRESSION: There is improvement as compared to prior exam. Increased marrow activity is noted descri bed.
== END | disposition home or self-care (01) ==
LOC: RADPETMAIN 11:21
PROVIDERS: ATTEND Internal Medicine Hematology & Oncology
DX: C83.39 Diffuse large B-cell lymphoma, extranodal and solid organ sites (principal)
CPT/HCPCS: 78815; A9552

== ENCOUNTER → 2017-04-04 | Outpatient (CLI) | payer MEDICARE, OTHER ==
--- NOTE | 2017-04-07 07:44 | PE ---
EXAMINATION TYPE: PET CT fusion skull to thigh DATE OF EXAM: 04/04/2017 COMPARISON: 02/07/2017 and 12/27/2016 HISTORY: Diffuse large B-cell lymphoma TECHNIQUE: Following the intravenous administration of 15.42 mCi of F-18 FDG, whole body images are performed from the skull base to the midthigh. Images are reviewed on the computer in the coronal, a xial, and sagittal planes. Reconstructed rotating images are created on independent workstation and reviewed on the computer. A localization and attenuation correction CT is performed in conjunction with the PET scan. SCAN: Surveillance FINDINGS: BACKGROUND MEDIASTINUM: 1.8 BACKGROUND ABDOMEN: 2.6 SKULL BASE AND NECK: Symmetric uptake is seen within the parotid glands (maximum SUV of 2.8) and sub mandibular glands (maximum SUV of 3.2) bilaterally, lymphatic tissue. Additionally increased activity around the vocal cords and throughout the tongue may relate to usage during the examination and was not present on the prior exam. No hypermetabolic lymph nodes are identified. CHEST, MEDIASTINUM, AND HILAR REGION: The soft tissue mass adjacent to the inferior aspect of the rig ht scapular border had a prior maximum SUV of 2.7 and currently demonstrates a maximum SUV of 2.45. There is background mild centrilobular pulmonary emphysema with an elongated right upper lobe nodule on series 3 image 81 along the interlobar fissure currently measuring 1.1 cm and previously measuring 1.1 cm. This does not demonstrate activity above mediastinal background (maximum SUV of 1.1). Additi onal solid 7 mm pulmonary nodule within the superior segment of the right lower lobe also demonstrate s a maximum SUV of 1.1 although this is below the threshold of PET CT. Moderate three-vessel coronary calcifications are noted in addition to mild cardiomegaly. No adenopat hy is seen within the chest. No hypermetabolic lymph nodes are noted. Right-sided Mediport is again n oted terminating in the high right atrium. ABDOMEN AND PELVIS: No hypermetabolic activity within the abdomen or pelvis is identified. Chronic dissection/intimal flap with calcifications is seen of the infrarenal abdominal aorta on seri es 3 image 174 extending over a approximately 1.5 cm distance. This does not extend into the common i liac arteries. The spleen is no longer enlarged as it measures 12.2 cm in longitudinal dimension. Numerous colonic diverticula are present without pericolonic fat stranding. Cholelithiasis is inciden tally noted as are extensive renal arterial calcifications. No adenopathy within the abdomen or pelvi s. No superficial inguinal adenopathy. OSSEOUS STRUCTURES: The previously seen diffuse increased bone marrow uptake, possibly due to treatme nt, is similar to the prior exam. IMPRESSION: 1. Findings again represent complete response to treatment in the lymph nodes. Persistent diffuse inc reased bone marrow uptake is again likely related to treatment. Symmetric bilateral parotid and subma ndibular uptake is likely physiologic. 2. Symmetric mildly hypermetabolic uptake within the parotid glands and submandibular glands is likel y physiologic. Uptake throughout the tongue and vocal cords is likely due to usage during the examina tion as this was not present on the prior exam. Direct visualization could be performed if there is f urther clinical concern. Attention on follow-up exams is also recommended. 3. Chronic infrarenal localized abdominal aortic dissection. 4. Stable right sided pulmonary nodules without hypermetabolic uptake. Note that the 7 mm nodule is b elow the threshold of PET CT. 5. No evidence of splenomegaly. 6. Continued decrease in SUV uptake of the right shoulder soft tissue mass adjacent to the inferior s capular border.
== END | disposition home or self-care (01) ==
LOC: RADPETMAIN 11:42
PROVIDERS: ATTEND Internal Medicine Hematology & Oncology
DX: C83.39 Diffuse large B-cell lymphoma, extranodal and solid organ sites (principal); I71.02 Dissection of abdominal aorta; R91.8 Other nonspecific abnormal finding of lung field; M79.9 Soft tissue disorder, unspecified
CPT/HCPCS: 78815; A9552

== ENCOUNTER 2017-04-15 08:05 | Inpatient (IN) | payer MEDICARE, OTHER ==
[~2017-04-15 08:05] MED LIST: ONDANSETRON 4 MG/2 ML VIAL IVP PRN
[2017-04-15 09:24] LABS: Anisocytosis Slight; Basophils % (A) 1 %; Eosinophils # (A) 0.1 k/uL (0-0.7); Eosinophils % (A) 1 %; HCT 36.4 % (39.0-53.0); HGB 11.4 gm/dL (13.0-17.5); Hypochromasia Slight; Lymphocytes # (A) 0.2 k/uL (1.0-4.8); Lymphocytes % (A) 5 %; MCH 28.1 pg (25.0-35.0); MCHC 31.3 g/dL (31.0-37.0); Mean Platelet Volume 7.7; Monocytes # (A) 0.4 k/uL (0-1.0); Monocytes % (A) 11 %; Neutrophils # (A) 3.3 k/uL (1.3-7.7); Neutrophils % (A) 80 %; Platelet Count 244 k/uL (150-450); Poikilocytosis Slight; RBC 4.04 m/uL (4.30-5.90); RDW 19.1 % (11.5-15.5); WBC 4.1 k/uL (3.8-10.6)
[2017-04-15 09:37] LABS: ALT 50 U/L (21-72); AST 25 U/L (17-59); Albumin 4.1 g/dL (3.5-5.0); Alkaline Phosphatase 81 U/L (38-126); Anion Gap 9 mmol/L; Blood Urea Nitrogen 19 mg/dL (9-20); Calcium 9.4 mg/dL (8.4-10.2); Carbon Dioxide 24 mmol/L (22-30); Chloride 110 mmol/L (98-107); Glucose 92 mg/dL (74-99); Potassium 4.3 mmol/L (3.5-5.1); Sodium 143 mmol/L (137-145); Total Bilirubin 0.3 mg/dL (0.2-1.3); Total Protein 6.4 g/dL (6.3-8.2)
[2017-04-15] MEDS: SODIUM CHLORIDE 0.9% 1,000 ML IV SCH ×2 (09:53→21:55)
[2017-04-15] MEDS: FAMOTIDINE 20 MG/2 ML VIAL IV SCH ×2 (10:49→11:01)
[2017-04-15] MEDS: ALLOPURINOL 300 MG TAB PO SCH (10:50)
[2017-04-15] MEDS ORDERED: ACETAMINOPHEN TAB 325 MG TAB ONE (11:00)
[2017-04-15] MEDS: DEXAMETHASONE SOD PHOSPHATE 10 MG/ML 1 ML VIAL IV SCH (11:02)
[2017-04-15] MEDS: ONDANSETRON 16 MG in SODIUM CHLORIDE 0.9% 50 ML IVPB SCH (11:02)
[2017-04-15] MEDS ORDERED: diphenhydrAMINE 50 MG/ML 1 ML VIAL ONE (11:12)
[2017-04-15] MEDS ORDERED: FERROUS SULFATE 325 MG TAB PO SCH (12:00)
[2017-04-15] MEDS: SODIUM CHLORIDE 0.9% IV SCH (15:35)
[2017-04-15] MEDS: ETOPOSIDE IV SCH (15:35)
--- NOTE | 2017-04-15 15:43 | P.HPIM ---
History of Present Illness H&P Date: 04/15/17 Chief Complaint: CIVI DLBCL Mr. Nevarez is a very pleasant male pt of Dr. Andrade, admitted for cycle # 5 of R-ICE, near complete response to treatment after cycle #2, 10% dose reduction after cycle #3 for MD and cytopenias. He has no physical c/o on admit , denies fevers, oral irritation, nausea, indigestion, SOB, cough, dysuria, swelling or pain, energy levels are decent, appetite good, fully ambulatory. Malignancy history: pt presented 09/04 with a right lower back mass, biopsy positive for diffuse large B-cell non-Hodgkin's lymphoma, staging PET showed adenopathy above and below the diaphragm, no organ involvement, stage III disease. Treated with 6 cycles of RCHOP, complete remission. He remained on f /u until May of 2015, then lost to f/u. He presented again in Nov 2016 with complains of a right lower back mass, CT guided needle biopsy with Dr. Segura, path positive for recurrent diffuse large B cell lymphoma, staging PET uptake in the neck lymph nodes, presternal soft tissue, and subcutaneous tissue in the right lower back and left thigh, second line chemotherapy was recommended and started in Dec. Review of Systems 10 point ROS is as stated in HPI Past Medical History Past Medical History: Cancer, Myocardial Infarction (MD), Pneumonia Additional Past Medical History / Comment(s): 2000 diagnosed with CLL treated with chemo successfully, 08/2014 R side back mass-diffuse large B cell lymphoma treated with chemo, 11/2016 recurrent R back mass-diffuse large B cell lymphoma with current chemo, pancytopenia, ITP, anemia, pneumonia with sepsis, 02/20/17 NSTEMI with heart cath-tx medically. Last Myocardial Infarction Date:: 02/20/17 History of Any Multi-Drug Resistant Organisms: None Reported Past Surgical History: Heart Catheterization Additional Past Surgical History / Comment(s): 02/20/17 cardiac cath, 2000 BMA, R upper back mass-needle bxs, colonoscopy-normal, power port. Past Anesthesia/Blood Transfusion Reactions: No Reported Reaction Additional Past Anesthesia/Blood Transfusion Reaction / Comment(s): Pt has received blood in the past without reaction. 02/20/17 pt had chest pain/SOB ( NSTEMI) 1 day post transfusion. Past Psychological History: No Psychological Hx Reported Smoking Status: Current every day smoker Past Alcohol Use History: Occasional Past Drug Use History: Unable to Obtain - Past Family History Father Additional Family Medical History / Comment(s): Father was an alcoholic. He committed suicide. Mother Family Medical History: Cancer Additional Family Medical History / Comment(s): Mother had Breast Cancer 25 yrs ago. She is 85yrs old. Medications and Allergies Home Medications Medication Instructions Recorded Confirmed Type Multivitamin [Men's Multi-Vitamin] 1 tab PO DAILY 12/11/16 04/15/17 History Vitamin B Complex 1 cap PO DAILY 12/11/16 04/15/17 History Ondansetron HCl [Zofran] 4 mg PO Q6HR PRN #50 tab 01/09/17 04/15/17 Rx Cyanocobalamin (Vitamin B-12) 1,000 mcg PO DAILY 02/18/17 04/15/17 History [Vitamin B-12] Ferrous Sulfate [Feosol] 325 mg PO Q72H 02/18/17 04/15/17 History Folic Acid 0.4 mg PO DAILY 02/18/17 04/15/17 History Aspirin EC [Ecotrin Low Dose] 81 mg PO DAILY 03/17/17 04/15/17 History Atorvastatin [Lipitor] 40 mg PO DAILY 03/17/17 04/15/17 History Metoprolol Succinate (ER) [Toprol 25 mg PO DAILY 03/17/17 04/15/17 History Xl] Isosorbide Mononitrate ER [Imdur] 30 mg PO DAILY #30 tab 03/20/17 04/15/17 Rx Filgrastim Sndz [Neupogen] 480 mcg IJ DIRECTED 04/15/17 04/15/17 History Allergies Allergy/AdvReac Type Severity Reaction Status Date / Time No Known Allergies Allergy Verified 04/15/17 08:50 Physical Exam Vitals: Vital Signs Temp Pulse Pulse Resp BP Pulse Ox 04/15/17 11:23 97.7 F 75 15 134/73 95 04/15/17 09:30 97.9 F 77 18 134/73 95 Intake and Output 04/15/17 04/15/17 04/15/17 06:59 14:59 22:59 Intake Total 1701.614 Balance 1701.614 Intake: IV 265 riTUXimab 750 mg In 265 Sodium Chloride 0.9% 500 ml @ Titrate IV .Q0M ONE Rx#:[id number] Intake, IV Titration 836.614 Amount Sodium Chloride 0.9% 1, 400 000 ml @ 75 mls/hr IV . [id number] [facility] Rx#:[id number] riTUXimab 750 mg In 436.614 Sodium Chloride 0.9% 500 ml @ Titrate IV .Q0M [facility] Rx#:[id number] Oral 600 Other: # Voids 2 - Constitutional General appearance: average body habitus, cooperative, no acute distress - EENT Eyes: anicteric sclerae, EOMI, normal appearance ENT: normal oropharynx - Neck Neck: no lymphadenopathy - Respiratory Respiratory: bilateral: CTA - Cardiovascular Rhythm: regular Heart sounds: normal: S1, S2 leg Peripheral Edema: bilateral: None - Gastrointestinal General gastrointestinal: no absent bowel sounds, no decreased bowel sounds, no distended, no hepatomegaly, no hyperactive bowel sounds, normal bowel sounds, no organomegaly, no rigid, no scaphoid, soft, no splenomegaly, no tenderness, no umbilical hernia, no ventral hernia - Integumentary Integumentary: normal - Neurologic Neurologic: CNII-XII intact - Musculoskeletal Musculoskeletal: strength equal bilaterally - Psychiatric Psychiatric: A&O x's 3, appropriate affect, intact judgment & insight Results CBC & Chem 7: 04/15/17 09:00 04/15/17 09:00 Labs: Abnormal Lab Results - Last 24 Hours (Table) 04/15/17 04/15/17 Range/Units 09:00 09:00 RBC 4.04 L (4.30-5.90) m/uL Hgb 11.4 L (13.0-17.5) gm/dL Hct 36.4 L (39.0-53.0) % RDW 19.1 H (11.5-15.5) % Lymphocytes # 0.2 L (1.0-4.8) k/uL Chloride 110 H (98-107) mmol/L Thrombosis Risk Factor Assmnt - DVT/VTE Prophylaxis DVT/VTE Prophylaxis: Pharmacologic Prophylaxis ordered - Choose All That Apply Any of the Below Risk Factors Present?: Yes Other Risk Factors: Yes Each Risk Factor Represents 2 Points: Age 61-74 years, Malignancy Other congenital or acquired thrombophilia - If yes, enter type in comment: No Thrombosis Risk Factor Assessment Total Risk Factor Score: 4 Thrombosis Risk Factor Assessment Level: Moderate Risk Assessment and Plan (1) Non-Hodgkin lymphoma Narrative/Plan: Chemo orders reviewed, supportive meds prescribed, labs daily, follow up daily. Current Visit: Yes Status: Chronic Priority: High Code(s): C85.90 - NON- HODGKIN LYMPHOMA, UNSPECIFIED, UNSPECIFIED SITE SNOMED Code(s): 260362636 Plan: GI/DVT prophylaxis Home meds reconciled
[2017-04-15] MEDS ORDERED: methylPREDNISolone SOD SUCCI 125 MG/2 ML VIAL IV ONE (18:00)
[2017-04-15] MEDS ORDERED: ACETAMINOPHEN TAB 325 MG TAB PO ONE (18:00)
[2017-04-15] MEDS ORDERED: diphenhydrAMINE 50 MG/ML 1 ML VIAL IVP ONE (18:00)
[2017-04-16] MEDS: ALLOPURINOL 300 MG TAB PO SCH (09:37)
[2017-04-16] MEDS: ISOSORBIDE MONONITRATE ER 30 MG TAB.ER.24H PO SCH (09:37)
[2017-04-16] MEDS: ATORVASTATIN 40 MG TAB PO SCH (09:38)
[2017-04-16] MEDS: ASPIRIN 81 MG PO SCH (09:39)
[2017-04-16] MEDS: METOPROLOL SUCCINATE (ER) 25 MG TAB.ER.24H PO SCH (09:39)
[2017-04-16] MEDS: DEXAMETHASONE SOD PHOSPHATE 10 MG/ML 1 ML VIAL IV SCH (09:55)
[2017-04-16] MEDS: FAMOTIDINE 20 MG/2 ML VIAL IV SCH ×2 (10:01→13:57)
[2017-04-16 10:50] LABS: Anisocytosis Slight; Basophils % (A) 0 %; Eosinophils # (A) 0.1 k/uL (0-0.7); Eosinophils % (A) 1 %; HCT 34.6 % (39.0-53.0); Hypochromasia Moderate; Lymphocytes # (A) 0.3 k/uL (1.0-4.8); Lymphocytes % (A) 4 %; MCH 28.4 pg (25.0-35.0); MCHC 31.8 g/dL (31.0-37.0); MCV 89.5 fL (80.0-100.0); Mean Platelet Volume 7.3; Monocytes # (A) 0.4 k/uL (0-1.0); Monocytes % (A) 5 %; Neutrophils # (A) 7.6 k/uL (1.3-7.7); Neutrophils % (A) 89 %; Platelet Count 291 k/uL (150-450); Poikilocytosis Moderate; RBC 3.86 m/uL (4.30-5.90); RDW 17.7 % (11.5-15.5); WBC 8.5 k/uL (3.8-10.6)
[2017-04-16 11:19] LABS: ALT 37 U/L (21-72); AST 19 U/L (17-59); Albumin 3.9 g/dL (3.5-5.0); Alkaline Phosphatase 93 U/L (38-126); Anion Gap 13 mmol/L; Blood Urea Nitrogen 18 mg/dL (9-20); Calcium 9.3 mg/dL (8.4-10.2); Carbon Dioxide 20 mmol/L (22-30); Chloride 112 mmol/L (98-107); Glucose 136 mg/dL (74-99); Potassium 4.3 mmol/L (3.5-5.1); Sodium 145 mmol/L (137-145); Total Bilirubin 0.2 mg/dL (0.2-1.3); Total Protein 6.1 g/dL (6.3-8.2)
[2017-04-16] MEDS: CYANOCOBALAMIN 500 MCG TAB PO SCH (12:10)
[2017-04-16] MEDS: B COMPLEX-VIT C-VIT E-ZINC 1 EACH TAB PO SCH (12:11)
[2017-04-16] MEDS: MULTIVITAMINS, THERA 1 EACH TAB PO SCH (12:12)
[2017-04-16] MEDS: FOLIC ACID 1 MG TAB PO SCH (12:40)
[2017-04-16] MEDS: SALT AND SODA MOUTHWASH 1,000 ML PO SCH ×3 (12:42→21:56)
--- NOTE | 2017-04-16 13:05 | P.PN ---
Subjective Progress Note Date: 04/16/17 Principal diagnosis: CIVI chemo for DLBCL patient seen today in follow-up, no oral irritation, appetite is good, no fever , nausea, shortness of breath, palpitations, abdominal pain, last bowel movement was yesterday, no swelling, patient ambulating ad alfa. Objective - Vital Signs Vital signs: Vital Signs Temp 97.9 F 04/16/17 07:59 Pulse 76 04/16/17 12:34 Resp 18 04/16/17 12:34 BP 142/69 04/16/17 07:59 Pulse Ox 96 04/16/17 07:59 Intake & Output 04/15/17 04/16/17 04/16/17 18:59 06:59 18:59 Intake Total 8513.236 3957 Balance 5842.415 8167 Weight 79.747 kg Intake: IV 265 900 Sodium Chloride 0.9% 1, 900 000 ml @ 75 mls/hr IV . [id number] [facility] Rx#:[id number] riTUXimab 750 mg In 265 Sodium Chloride 0.9% 500 ml @ Titrate IV .Q0M [facility] Rx#:[id number] Intake, IV Titration 836.614 Amount Sodium Chloride 0.9% 1, 400 000 ml @ 75 mls/hr IV . [id number] [facility] Rx#:[id number] riTUXimab 750 mg In 436.614 Sodium Chloride 0.9% 500 ml @ Titrate IV .Q0M [facility] Rx#:[id number] Oral 600 590 Other: Voiding Method Toilet Toilet # Voids 2 - Constitutional General appearance: Present: average body habitus, cooperative, no acute distress - EENT Eyes: Present: anicteric sclerae, PERRLA, normal appearance ENT: Present: hearing grossly normal - Respiratory Respiratory: bilateral: CTA - Cardiovascular Rhythm: regular Heart sounds: normal: S1, S2 - Peripheral edema leg Peripheral Edema: bilateral: None - Gastrointestinal General gastrointestinal: Present: normal bowel sounds, soft - Integumentary Integumentary: Present: normal - Neurologic Neurologic: Present: CNII-XII intact - Musculoskeletal Musculoskeletal: Present: strength equal bilaterally - Psychiatric Psychiatric: Present: A&O x's 3, appropriate affect, intact judgment & insight - Labs CBC & Chem 7: 04/16/17 10:23 01/25/18 10:23 Labs: Abnormal Lab Results - Last 24 Hours (Table) 04/16/17 04/16/17 Range/Units 10:23 10:23 RBC 3.86 L (4.30-5.90) m/uL Hgb 11.0 L (13.0-17.5) gm/dL Hct 34.6 L (39.0-53.0) % RDW 17.7 H (11.5-15.5) % Lymphocytes # 0.3 L (1.0-4.8) k/uL Chloride 112 H (98-107) mmol/L Carbon Dioxide 20 L (22-30) mmol/L Glucose 136 H (74-99) mg/dL Total Protein 6.1 L (6.3-8.2) g/dL Assessment and Plan (1) Non-Hodgkin lymphoma Narrative/Plan: Continue chemotherapy without adjustment, continue supportive meds prescribed, labs daily, follow up daily. Current Visit: Yes Status: Chronic Priority: High Code(s): C85.90 - NON- HODGKIN LYMPHOMA, UNSPECIFIED, UNSPECIFIED SITE SNOMED Code(s): 759615991 Plan: GI/DVT prophylaxis cardiology consulted to follow well receiving cardiotoxic chemotherapy
[2017-04-16] MEDS ORDERED: CARBOPLATIN IV ONE (15:00)
[2017-04-16] MEDS ORDERED: SODIUM CHLORIDE 0.9% IV ONE ×3 (15:00→21:00)
[2017-04-16] MEDS: SODIUM CHLORIDE 0.9% 1,000 ML IV SCH (16:51)
[2017-04-16] MEDS: ETOPOSIDE IV SCH (16:51)
[2017-04-16] MEDS: SODIUM CHLORIDE 0.9% IV SCH (16:51)
[2017-04-16] MEDS: ONDANSETRON 16 MG in SODIUM CHLORIDE 0.9% 50 ML IVPB SCH (17:10)
--- NOTE | 2017-04-16 18:58 | P.CRDCN ---
History of Present Illness Consult date: 04/16/17 History of present illness: Mr. Nevarez is a pleasant 61-year-old male past medical history significant for lymphoma, coronary artery disease and chronic tobacco abuse. He sees Dr. Luciano in the office. He is currently admitted in the hospital for his last round of chemotherapy. We have been asked to see him in consultation to manage his cardiac medications and needs while hospitalized. His last round of chemotherapy in January he developed chest pain and subsequently underwent cardiac catheterization. At that time it revealed total occlusion of RCA, ostial circumflex disease, moderate disease in LAD and was declined by CT surgery. Medical therapy was recommended. Most recent echocardiogram from 01/2017 reveals preserved LV function with EF 55-60% with borderline LVH, mildly thickened aortic valve and mild-moderate mitral regurgitation with no evidence of pulmonary hypertension with RVSP less than 35 mmHg. He denies symptoms of chest pain, shortness of breath, dizziness, palpitations, nausea or vomiting. Laboratory data reviewed, hgb 11, plt 291, potassium 4.3, creatinine 0.99. Current cardiac medications include imdur 30 mg daily, toprol 25 mg daily, atorvastatin 40 mg daily and aspirin 81 mg daily. Review of Systems At the time of my exam: CONSTITUTIONAL: Denies fever. Denies chills. EYES: Denies blurred vision. Denies vision changes. Denies eye pain. EARS, NOSE, MOUTH & THROAT: Denies headache. Denies sore throat. Denies ear pain. CARDIOVASCULAR: Denies chest pain. Denies shortness of breath. Denies orthopnea. Denies PND. Denies palpitations. RESPIRATORY: Denies cough. GASTROINTESTINAL: Denies abdominal pain. Denies diarrhea. Denies constipation. Denies nausea. Denies vomiting. MUSCULOSKELETAL: Denies myalgias. INTEGUMENTARY: Denies pruitis. Denies rash. NEUROLOGIC: Denies numbness. Denies tingling. Denies weakness. PSYCHIATRIC: Denies anxiety. Denies depression. ENDOCRINE: Denies fatigue. Denies weight change. Denies polydipsia. Denies polyurina. GENITOURINARY: Denies burning, hematuria or urgency with micturation. HEMATOLOGIC: Denies history of anemia. Denies bleeding. Past Medical History Past Medical History: Cancer, Myocardial Infarction ([place]), Pneumonia Additional Past Medical History / Comment(s): 2000 diagnosed with CLL treated with chemo successfully, 08/2014 R side back mass-diffuse large B cell lymphoma treated with chemo, 11/2016 recurrent R back mass-diffuse large B cell lymphoma with current chemo, pancytopenia, ITP, anemia, pneumonia with sepsis, 02/20/17 NSTEMI with heart cath-tx medically. Last Myocardial Infarction Date:: 02/20/17 History of Any Multi-Drug Resistant Organisms: None Reported Past Surgical History: Heart Catheterization Additional Past Surgical History / Comment(s): 02/20/17 cardiac cath, 2000 BMA, R upper back mass-needle bxs, colonoscopy-normal, power port. Past Anesthesia/Blood Transfusion Reactions: No Reported Reaction Additional Past Anesthesia/Blood Transfusion Reaction / Comment(s): Pt has received blood in the past without reaction. 02/20/17 pt had chest pain/SOB ( NSTEMI) 1 day post transfusion. Past Psychological History: No Psychological Hx Reported Smoking Status: Current every day smoker Past Alcohol Use History: Occasional Past Drug Use History: Unable to Obtain - Past Family History Father Additional Family Medical History / Comment(s): Father was an alcoholic. He committed suicide. Mother Family Medical History: Cancer Additional Family Medical History / Comment(s): Mother had Breast Cancer 25 yrs ago. She is 85yrs old. Medications and Allergies Home Medications Medication Instructions Recorded Confirmed Type Multivitamin [Men's Multi-Vitamin] 1 tab PO DAILY 12/11/16 04/15/17 History Vitamin B Complex 1 cap PO DAILY 12/11/16 04/15/17 History Ondansetron HCl [Zofran] 4 mg PO Q6HR PRN #50 tab 01/09/17 04/15/17 Rx Cyanocobalamin (Vitamin B-12) 1,000 mcg PO DAILY 02/18/17 04/15/17 History [Vitamin B-12] Ferrous Sulfate [Feosol] 325 mg PO Q72H 02/18/17 04/15/17 History Folic Acid 0.4 mg PO DAILY 02/18/17 04/15/17 History Aspirin EC [Ecotrin Low Dose] 81 mg PO DAILY 03/17/17 04/15/17 History Atorvastatin [Lipitor] 40 mg PO DAILY 03/17/17 04/15/17 History Metoprolol Succinate (ER) [Toprol 25 mg PO DAILY 03/17/17 04/15/17 History Xl] Isosorbide Mononitrate ER [Imdur] 30 mg PO DAILY #30 tab 03/20/17 04/15/17 Rx Filgrastim Sndz [Neupogen] 480 mcg IJ DIRECTED 04/15/17 04/15/17 History Allergies Allergy/AdvReac Type Severity Reaction Status Date / Time No Known Allergies Allergy Verified 04/15/17 08:50 Physical Exam Vitals: Vital Signs Temp Pulse Pulse Resp BP Pulse Ox 04/16/17 14:32 97.9 F 69 20 146/73 98 04/16/17 12:34 76 18 04/16/17 08:00 18 04/16/17 07:59 97.9 F 76 18 142/69 96 04/15/17 23:00 98.0 F 88 16 142/73 96 04/15/17 15:46 75 77 15 04/15/17 15:00 98 F 81 18 139/79 95 Intake and Output 04/15/17 04/16/17 04/16/17 22:59 06:59 14:59 Intake Total 300 1190 2094 Balance 300 1190 2094 Intake: IV 300 600 500 Sodium Chloride 0.9% 1, 300 600 500 000 ml @ 75 mls/hr IV . [id number] [facility] Rx#:[id number] Intake, IV Titration 794 Amount CARBOplatin 450 mg 594 CARBOplatin 20 mg In Sodium Chloride 0.9% 250 ml @ 594 mls/hr IV ONCE ONE Rx#:[id number] Ifosfamide 9,000 mg In 100 Sodium Chloride 0.9% 1, 000 ml @ 49.167 mls/hr IV ONCE ONE Rx#:[id number] [place] 9,000 mg In Sodium 50 Chloride 0.9% 500 ml @ 24 .583 mls/hr IV ONCE ONE Rx#:[id number] Ondansetron 16 mg In 50 Sodium Chloride 0.9% 50 ml @ 100 mls/hr IVPB DAILY@1430 [facility] Rx#: [id number] Oral 590 800 Other: Voiding Method Toilet Toilet # Voids 2 4 Weight 79.747 kg Blood pressure 142/69 heart rate 76 afebrile GENERAL: This is a 61-year-old male in no apparent distress at the time of my examination. HEENT: Head is atraumatic, normocephalic. Pupils are equal, round. Sclerae anicteric. Conjunctivae are clear. Mucous membranes of the mouth are moist. Neck is supple. There is no jugular venous distention. Bilateral carotid bruit heard, right greater than left. LUNGS: Clear to auscultation no wheezes, rales or rhonchi. No chest wall tenderness is noted on palpation or with deep breathing. HEART: Regular rate and rhythm with systolic ejection murmur at the base, no rubs or gallops. S1 and S2 heard. ABDOMEN: Soft, nontender. Bowel sounds are heard. No organomegaly noted. EXTREMITIES: No evidence of peripheral edema and no calf tenderness noted. VASCULAR: Radial and dorsalis pedis pulses palpated, no evidence of clubbing. NEUROLOGIC: Patient is awake, alert and oriented x3. Results 04/16/17 10:23 04/16/17 10:23 Cardiac Enzymes 04/16/17 Range/Units 10:23 AST 19 (17-59) U/L CBC 04/16/17 Range/Units 10:23 WBC 8.5 (3.8-10.6) k/uL RBC 3.86 L (4.30-5.90) m/uL Hgb 11.0 L (13.0-17.5) gm/dL Hct 34.6 L (39.0-53.0) % Plt Count 291 (150-450) k/uL Comprehensive Metabolic Panel 04/16/17 Range/Units 10:23 Sodium 145 (137-145) mmol/L Potassium 4.3 (3.5-5.1) mmol/L Chloride 112 H (98-107) mmol/L Carbon Dioxide 20 L (22-30) mmol/L BUN 18 (9-20) mg/dL Creatinine 0.99 (0.66-1.25) mg/dL Glucose 136 H (74-99) mg/dL Calcium 9.3 (8.4-10.2) mg/dL AST 19 (17-59) U/L ALT 37 (21-72) U/L Alkaline Phosphatase 93 (38-126) U/L Total Protein 6.1 L (6.3-8.2) g/dL Albumin 3.9 (3.5-5.0) g/dL Current Medications Generic Name Dose Route Start Last Admin Trade Name Freq PRN Reason Stop Dose Admin Allopurinol 300 mg 04/15/17 09:00 04/16/17 09:37 Zyloprim PO 300 mg DAILY TAMI Administration Aspirin 81 mg 04/16/17 09:00 04/16/17 09:39 Aspirin PO 81 mg DAILY TAMI Administration Atorvastatin Calcium 40 mg 04/16/17 09:00 04/16/17 09:38 Lipitor PO 40 mg DAILY TAMI Administration Cyanocobalamin 1,000 mcg 04/16/17 12:00 04/16/17 12:10 Vitamin B-12 PO 1,000 mcg 1200 TAMI Administration Dexamethasone Sodium Phosphate 10 mg 04/17/17 09:00 Decadron IV 04/17/17 09:01 ONCE ONE Famotidine 20 mg 04/17/17 09:00 Pepcid IV 04/17/17 09:01 ONCE ONE Ferrous Sulfate 325 mg 04/15/17 12:00 04/15/17 13:54 Feosol PO 325 mg Q72H TAMI Administration Folic Acid 0.5 mg 04/16/17 12:00 04/16/17 12:40 Folic Acid PO 0.5 mg 1200 TAMI Administration Etoposide 180 mg/ Sodium 509 mls @ 509 mls/hr 04/15/17 15:00 04/15/17 15:35 Chloride IV 04/17/17 15:59 509 mls/hr 1500 TAMI Administration Ifosfamide 9,000 mg/ Sodium 1,180 mls @ 49.167 mls/hr 04/16/17 21:00 09:54 Chloride IV 04/17/17 20:59 49.167 mls/hr ONCE ONE Administration Mesna 9,000 mg/ Sodium 590 mls @ 24.583 mls/hr 04/16/17 21:00 04/16/17 09:54 Chloride IV 04/17/17 20:59 24.583 mls/hr ONCE ONE Administration Carboplatin 450 mg/ 297 mls @ 594 mls/hr 04/16/17 15:00 04/16/17 09:53 Carboplatin 20 mg/ Sodium IV 04/16/17 15:29 594 mls/hr Chloride ONCE ONE Administration Sodium Chloride 1,000 mls @ 75 mls/hr 04/15/17 08:00 04/15/17 21:55 Saline 0.9% IV 75 mls/hr .[id number] TAMI Administration Ondansetron HCl 16 mg/ Sodium 58 mls @ 100 mls/hr 04/17/17 09:00 Chloride IVPB 04/17/17 09:34 ONCE ONE Isosorbide Mononitrate 30 mg 04/16/17 09:00 04/16/17 09:37 Imdur PO 30 mg DAILY TAMI Administration Metoprolol Succinate 25 mg 04/16/17 09:00 04/16/17 09:39 Toprol Xl PO 25 mg DAILY TAMI Administration Multivitamins 1 each 04/16/17 12:00 04/16/17 12:12 Theragran PO 1 each DAILY@1200 TAMI Administration Ondansetron HCl 4 mg 04/15/17 08:00 Zofran IVP Q6HR PRN NAUSEA AND/OR VOMITING Sodium Bicarbonate 5 ml 04/16/17 11:00 04/16/17 12:42 PO 5 ml 5XD TAMI Administration Vitamin B Complex/Vit C/Vit E/Zinc 1 each 04/16/17 12:00 04/16/17 12:11 Z-Bec PO 1 each DAILY@1200 TAMI Administration Intake and Output 04/15/17 04/16/17 04/16/17 22:59 06:59 14:59 Intake Total 300 1190 2094 Balance 300 1190 2094 Intake: IV 300 600 500 Sodium Chloride 0.9% 1, 300 600 500 000 ml @ 75 mls/hr IV . [id number] [facility] Rx#:[id number] Intake, IV Titration 794 Amount CARBOplatin 450 mg 594 CARBOplatin 20 mg In Sodium Chloride 0.9% 250 ml @ 594 mls/hr IV ONCE ONE Rx#:[id number] Ifosfamide 9,000 mg In 100 Sodium Chloride 0.9% 1, 000 ml @ 49.167 mls/hr IV ONCE ONE Rx#:[id number] [place] 9,000 mg In Sodium 50 Chloride 0.9% 500 ml @ 24 .583 mls/hr IV ONCE ONE Rx#:[id number] Ondansetron 16 mg In 50 Sodium Chloride 0.9% 50 ml @ 100 mls/hr IVPB DAILY@1430 [facility] Rx#: [id number] Oral 590 800 Other: Voiding Method Toilet Toilet # Voids 2 4 Weight 79.747 kg 04/16/17 10:23 04/16/17 10:23 Assessment and Plan Assessment: ASSESSMENT 1. History of coronary artery disease on optimal medical therapy 2. Non-hodgkins lymphoma receiving chemotherapy 3. Chronic tobacco abuse PLAN Obtain baseline EKG. Continue with imdur, atoravastatin, toprol and aspirin as was previously ordered. Smoking cessation discussed at length. Follow-up with Dr. Luciano at regularly scheduled appointment. Please feel free to call with questions or concerns during this hospitalization. We will see Mr. Nevarez as needed. Thank you kindly for this consultation. Nurse Practitioner note has been reviewed, I agree with a documented findings and plan of care. Patient was seen and examined.
[2017-04-16] MEDS ORDERED: IFOSFAMIDE IV ONE (21:00)
[2017-04-16] MEDS ORDERED: MESNA IV ONE (21:00)
[2017-04-17] MEDS: SODIUM CHLORIDE 0.9% 1,000 ML IV SCH ×2 (00:12→13:21)
[2017-04-17] MEDS: SALT AND SODA MOUTHWASH 1,000 ML PO SCH ×4 (00:13→14:50)
[2017-04-17 08:20] LABS: Anisocytosis Slight; Basophils % (A) 0 %; Eosinophils % (A) 0 %; HCT 31.9 % (39.0-53.0); HGB 10.3 gm/dL (13.0-17.5); Hypochromasia Moderate; Lymphocytes # (A) 0.2 k/uL (1.0-4.8); Lymphocytes % (A) 4 %; MCH 28.7 pg (25.0-35.0); MCHC 32.3 g/dL (31.0-37.0); MCV 88.7 fL (80.0-100.0); Mean Platelet Volume 7.8; Monocytes # (A) 0.3 k/uL (0-1.0); Monocytes % (A) 5 %; Neutrophils # (A) 5.5 k/uL (1.3-7.7); Neutrophils % (A) 90 %; Platelet Count 195 k/uL (150-450); Poikilocytosis Slight; RBC 3.59 m/uL (4.30-5.90); RDW 18.6 % (11.5-15.5); WBC 6.1 k/uL (3.8-10.6)
[2017-04-17 08:38] LABS: ALT 28 U/L (21-72); AST 14 U/L (17-59); Albumin 3.4 g/dL (3.5-5.0); Alkaline Phosphatase 66 U/L (38-126); Anion Gap 8 mmol/L; Blood Urea Nitrogen 15 mg/dL (9-20); Calcium 9.3 mg/dL (8.4-10.2); Carbon Dioxide 22 mmol/L (22-30); Chloride 115 mmol/L (98-107); Glucose 98 mg/dL (74-99); Potassium 4.6 mmol/L (3.5-5.1); Sodium 145 mmol/L (137-145); Total Bilirubin 0.2 mg/dL (0.2-1.3); Total Protein 5.5 g/dL (6.3-8.2)
[2017-04-17] MEDS ORDERED: FAMOTIDINE 20 MG/2 ML VIAL IV ONE (09:00)
[2017-04-17] MEDS ORDERED: DEXAMETHASONE SOD PHOSPHATE 10 MG/ML 1 ML VIAL IV ONE (09:00)
[2017-04-17] MEDS ORDERED: ONDANSETRON 16 MG in SODIUM CHLORIDE 0.9% 50 ML IVPB ONE (09:00)
[2017-04-17] MEDS: ALLOPURINOL 300 MG TAB PO SCH (09:13)
[2017-04-17] MEDS: ASPIRIN 81 MG PO SCH (09:44)
[2017-04-17] MEDS: METOPROLOL SUCCINATE (ER) 25 MG TAB.ER.24H PO SCH (09:44)
[2017-04-17] MEDS: ATORVASTATIN 40 MG TAB PO SCH (09:51)
[2017-04-17] MEDS: ISOSORBIDE MONONITRATE ER 30 MG TAB.ER.24H PO SCH (09:52)
[2017-04-17] MEDS: MULTIVITAMINS, THERA 1 EACH TAB PO SCH (12:35)
[2017-04-17] MEDS: B COMPLEX-VIT C-VIT E-ZINC 1 EACH TAB PO SCH (12:35)
[2017-04-17] MEDS: CYANOCOBALAMIN 500 MCG TAB PO SCH (12:35)
[2017-04-17] MEDS: FOLIC ACID 1 MG TAB PO SCH (12:36)
[2017-04-17] MEDS: SODIUM CHLORIDE 0.9% IV SCH (13:19)
[2017-04-17] MEDS: ETOPOSIDE IV SCH (13:19)
[2017-04-17 15:22] VITALS: BP 133/63; TEMP 98
[2017-04-17 16:13] VITALS: RESP 16
[2017-04-17 17:58] VITALS: PULSE 80
--- NOTE | 2017-04-17 18:30 | P.DS ---
Providers Date of admission: 04/15/17 08:05 Attending physician: Jeffry Andrade Consults: 04/16/17 08:49 Consult Physician Routine Consulting Provider: Anibal Luciano Consult Reason/Comments: cardiac monitoring on chemo Do you want consulting provider notified?: Yes Primary care physician: Stated None Hospital Course: The patient has a known history of recurrent diffuse large B-cell non-Hodgkin' s lymphoma. He is currently on salvage chemotherapy with the R-ICE regimen. He has responded well to that, with an excellent response by clinical exam and PET scan. He was admitted to the hospital for cycle #4. The patient received treatment per protocol and tolerated it well without any untoward side effects. He was followed by cardiology because of his history of recent NV. He had no recurrence of chest pain or shortness of breath. Blood counts as well as chemistries remained satisfactory. Therefore after completion of chemotherapy to decided to discharge him home. Procedures: High dose infusional chemotherapy Patient Condition at Discharge: Fair Plan - Discharge Summary Discharge Rx Participant: No New Discharge Prescriptions: Continue Aspirin EC [Ecotrin Low Dose] 81 mg PO DAILY Atorvastatin [Lipitor] 40 mg PO DAILY #30 tab Isosorbide Mononitrate ER [Imdur] 30 mg PO DAILY #30 tab Metoprolol Succinate (ER) [Toprol XL] 25 mg PO DAILY #30 tab.er.24h No Action Multivitamin [Men's Multi-Vitamin] 1 tab PO DAILY Vitamin B Complex 1 cap PO DAILY Ondansetron HCl [Zofran] 4 mg PO Q6HR PRN #50 tab PRN Reason: Nausea And Vomiting Folic Acid 0.4 mg PO DAILY Ferrous Sulfate [Feosol] 325 mg PO Q72H Cyanocobalamin (Vitamin B-12) [Vitamin B-12] 1,000 mcg PO DAILY Filgrastim Sndz [Neupogen] 480 mcg IJ DIRECTED Discharge Medication List Multivitamin [Men's Multi-Vitamin] 1 tab PO DAILY 12/11/16 [History] Vitamin B Complex 1 cap PO DAILY 12/11/16 [History] Ondansetron HCl [Zofran] 4 mg PO Q6HR PRN #50 tab 01/09/17 [Rx] Cyanocobalamin (Vitamin B-12) [Vitamin B-12] 1,000 mcg PO DAILY 02/18/17 [ History] Ferrous Sulfate [Feosol] 325 mg PO Q72H 02/18/17 [History] Folic Acid 0.4 mg PO DAILY 02/18/17 [History] Aspirin EC [Ecotrin Low Dose] 81 mg PO DAILY 03/17/17 [History] Filgrastim Sndz [Neupogen] 480 mcg IJ DIRECTED 04/15/17 [History] Atorvastatin [Lipitor] 40 mg PO DAILY #30 tab 04/16/17 [Rx] Isosorbide Mononitrate ER [Imdur] 30 mg PO DAILY #30 tab 04/16/17 [Rx] Metoprolol Succinate (ER) [Toprol XL] 25 mg PO DAILY #30 tab.er.24h 04/16/17 [Rx ] Follow up Appointment(s)/Referral(s): Anibal Luciano MD [STAFF PHYSICIAN] - As Needed (At next schedule appointment. ) Jeffry Andrade MD [STAFF PHYSICIAN] - (To come to [facility] office on 04/20/17 to get Neulasta Follow up in the office according to previously scheduled appointment) Discharge Disposition: HOME SELF-CARE
== END 2017-04-17 20:28 | disposition home or self-care (01) | DRG 847 ==
LOC: 5ONC 08:05
PROVIDERS: ADMIT Internal Medicine Hematology & Oncology; ATTEND Internal Medicine Hematology & Oncology
DX: Z51.11 Encounter for antineoplastic chemotherapy (principal); C83.30 Diffuse large B-cell lymphoma, unspecified site; D69.3 Immune thrombocytopenic purpura; I25.82 Chronic total occlusion of coronary artery; F17.200 Nicotine dependence, unspecified, uncomplicated; I25.10 Atherosclerotic heart disease of native coronary artery without angina pectoris; I25.2 Old myocardial infarction; I34.0 Nonrheumatic mitral (valve) insufficiency; Z79.82 Long term (current) use of aspirin; Z79.899 Other long term (current) drug therapy; Z80.3 Family history of malignant neoplasm of breast; Z81.1 Family history of alcohol abuse and dependence; Z85.6 Personal history of leukemia
CPT/HCPCS: 80053; 85025

== ENCOUNTER → 2017-06-17 | Outpatient (CLI) | payer MEDICARE, OTHER | END | disposition home or self-care (01) | LOC: CPPFTMAIN 10:58 | PROVIDERS: ATTEND Internal Medicine Hematology & Oncology | DX: Z01.818 Encounter for other preprocedural examination (principal); C83.39 Diffuse large B-cell lymphoma, extranodal and solid organ sites | CPT/HCPCS: 94060; 94726; 94729 ==

== ENCOUNTER → 2017-08-05 | Outpatient (CLI) | payer MEDICARE ==
--- NOTE | 2017-08-05 11:16 | CT ---
EXAMINATION TYPE: CT ChestAbdPelvis w con DATE OF EXAM: 08/05/2017 COMPARISON: Prior CT February 21, 2015. Prior PET/CT April 04, 2017 and older studies. HISTORY: Lymphoma CT DLP: 811.3 mGycm. Automated Exposure Control for Dose Reduction was Utilized. CONTRAST: CT scan of the thorax, abdomen and pelvis is performed with oral and with IV Contrast, patient inject ed with 100 mL of Isovue 300. FINDINGS: LUNGS: There is underlying emphysematous change with mild to moderate biapical pleural/parenchymal sc arring, there is extension of scar inferiorly in the right upper lobe with 11 x 5 mm nodularity abutt ing fissure posterior lateral inferior right upper lobe axial image 23 redemonstrated not increased i n size from 2015 CT favoring scarring. There is 6 mm nodule posterior right lower lobe axial image 34 also not increased in size from prior CT suggesting benign. There is mild central peribronchial wall thickening slightly more prominent from prior study likely product of underlying COPD. MEDIASTINUM: There are no greater than 1 cm hilar or mediastinal lymph nodes. No cardiomegaly or pe ricardial effusion is seen. Coronary artery calcification is redemonstrated which is noted marker fo r coronary artery disease. OTHER: There is stable right internal jugular Mediport catheter. No suspicious recurrent axillary echo nopathy is seen. There is defect posterior right lower thoracic wall likely scar from excision of sub cutaneous mass at this level near axial image 40. LIVER/GB: Dependent gallstone in gallbladder is noted axial image 67. Liver is low dense relative to spleen. PANCREAS: No significant abnormality is seen. SPLEEN: Spleen size remains within normal limits. ADRENALS: No significant abnormality is seen. KIDNEYS: Central vascular calcifications in both kidneys are seen. BOWEL: Normal contrast-filled appendix is seen from cecum. There is no suspicious small or large george l dilatation. There are diverticula in the left and to greater degree sigmoid colon. There is no CT e vidence for acute diverticulitis. GENITAL ORGANS: Enlarged prostate consistent with BPH is redemonstrated. LYMPH NODES: No greater than 1cm abdominal or pelvic lymph nodes are appreciated. OSSEOUS STRUCTURES: There is mild multilevel spurring in the thoracic spine. Posterior spur disc comp lexes are effacing anterior thecal sac at L1-L2 and L5-S1 levels. OTHER: There is moderate to severe mixed plaque in the abdominal aorta extending into pelvic branch v essels. Focal dissection near axial image 82 is not excluded not significantly changed from prior. No te is made of abrupt occlusion right superficial femoral artery shortly after its origin axial image 127 and corresponding coronal image 31. Clinical correlation advised. IMPRESSION: 1. No new suspicious mass or adenopathy is seen to suggest neoplastic recurrence. 2. There is complete occlusion of the right superficial femoral artery shortly after its origin new f rom prior CT 2014. Correlate for acute peripheral vascular disease symptoms in the right lower extrem ity advised. Vascular surgical referral recommended. Case discussed via telephone to ordering physician office director medical economics at time of dictation.
== END ==
LOC: RADPROMAIN 08:49
PROVIDERS: ATTEND Internal Medicine Hematology & Oncology
DX: Z03.89 Encounter for observation for other suspected diseases and conditions ruled out (principal); Z85.72 Personal history of non-Hodgkin lymphomas
CPT/HCPCS: 71260; 74177; J1642; Q9967

== ENCOUNTER → 2017-08-27 | Outpatient (CLI) | payer MEDICARE ==
[2017-08-27 10:25] LABS: Anisocytosis Slight; Appearance,Urine Clear (Clear); Bilirubin,Urine Negative (Negative); Blood,Urine Negative (Negative); Color,Urine Yellow; Glucose,Urine (UA) Negative (Negative); HCT 40.5 % (39.0-53.0); HGB 13.8 gm/dL (13.0-17.5); Ketones,Urine Trace (Negative); Leukocyte Esterase,Urine Negative (Negative); MCH 28.3 pg (25.0-35.0); MCV 83.4 fL (80.0-100.0); Nitrite,Urine Negative (Negative); PH, Urine 5.5 (5.0-8.0); Platelet Count 154 k/uL (150-450); Protein,Urine Trace (Negative); RBC 4.86 m/uL (4.30-5.90); RDW 16.6 % (11.5-15.5); Specific Gravity,Urine 1.026 (1.001-1.035); WBC 7.3 k/uL (3.8-10.6)
[2017-08-27 10:30] LABS: INR 1.1 (<1.2); Prothrombin Time 10.3 sec (9.0-12.0)
[2017-08-27 10:48] LABS: Albumin 4.5 g/dL (3.5-5.0); Bilirubin, Delta 0.2 mg/dL (0.0-0.2); Calcium 9.7 mg/dL (8.4-10.2); Potassium 4.2 mmol/L (3.5-5.1); Total Bilirubin 0.2 mg/dL (0.2-1.3); Total Protein 6.7 g/dL (6.3-8.2)
== END | disposition home or self-care (01) ==
LOC: LABWHC1 10:03
PROVIDERS: ATTEND Internal Medicine Cardiovascular Disease
DX: I25.10 Atherosclerotic heart disease of native coronary artery without angina pectoris (principal)
CPT/HCPCS: 36415; 80053; 80061; 81003; 82248; 85027; 85610

== ENCOUNTER → 2017-11-24 | Outpatient (CLI) | payer MEDICARE ==
--- NOTE | 2017-11-24 12:47 | CT ---
EXAMINATION TYPE: CT ChestAbdPelvis w con DATE OF EXAM: 11/24/2017 COMPARISON: 08/05/2017 HISTORY: Recheck scan follow up for lymphoma CT DLP: 888.2 mGycm Automated exposure control for dose reduction was used. CONTRAST: CT scan of the chest, abdomen and pelvis is performed with Oral Contrast and with IV Contrast, patien t injected with 100 mL of Isovue 300. FINDINGS: LUNGS: There is underlying emphysematous change with mild to moderate biapical pleural/parenchymal sc arring, there is extension of scar inferiorly in the right upper lobe with 11 x 5 mm nodularity abutt ing fissure posterior lateral inferior right upper lobe redemonstrated not increased in size from [address] favoring scarring. There is 6 mm nodule posterior right lower lobe also not increased in size f rom prior. 3 mm nodule along the medial margin of the superior segment left lower lobe image 42 is re trospectively stable. 3 mm additional nodule image 47 left lower lobe also is retrospectively stable. Patchy subsegmental changes at the left lung base appears most likely inflammatory. 7 mm nodule ante rior segment right upper lobe axial image 48 stable. There is mild central peribronchial wall thicken ing slightly more prominent from prior study likely product of underlying COPD. MEDIASTINUM: There are no greater than 1 cm hilar or mediastinal lymph nodes. No pericardial effusi on is seen. Mediport catheter noted. Coronary artery calcification noted. OTHER: There is stable right internal jugular Mediport catheter. No suspicious recurrent axillary ad enopathy is seen. There is defect posterior right lower thoracic wall likely post surgical. LIVER/GB: Lithiasis. PANCREAS: No significant abnormality is seen. SPLEEN: No significant abnormality is seen. ADRENALS: No significant abnormality is seen. KIDNEYS: No significant abnormality is seen. BOWEL: Normal contrast-filled appendix is seen from cecum. There is no suspicious small or large bow el dilatation. There are diverticula in the left and to greater degree sigmoid colon. There is no CT evidence for acute diverticulitis. Small bowel lipoma in the third portion of the duodenum incidental ly noted. LYMPH NODES: No greater than 1 cm abdominal or pelvic lymph nodes are appreciated. OSSEOUS STRUCTURES: Multilevel degenerative disc disease and hypertrophic changes noted.. OTHER: There is moderate to severe mixed plaque in the abdominal aorta extending into pelvic branch v essels. There is ectasia are stable. As previously noted small localized chronic dissection not exclu ded. Note is made of chronic occlusion right superficial femoral artery shortly after its origin. Cli nical correlation advised. IMPRESSION: 1. Stable pulmonary nodules unchanged from the prior exam. 2. No pathologic adenopathy identified. 3. COPD.
== END | disposition home or self-care (01) ==
LOC: RADPROMAIN 09:52
PROVIDERS: ATTEND Internal Medicine Hematology & Oncology
DX: C83.34 Diffuse large B-cell lymphoma, lymph nodes of axilla and upper limb (principal); C83.39 Diffuse large B-cell lymphoma, extranodal and solid organ sites; R91.8 Other nonspecific abnormal finding of lung field; J44.9 Chronic obstructive pulmonary disease, unspecified; Z95.828 Presence of other vascular implants and grafts
CPT/HCPCS: 71260; 74177; J1642; Q9967

== ENCOUNTER → 2018-03-04 | Outpatient (CLI) | payer MEDICARE ==
--- NOTE | 2018-03-04 13:02 | CT ---
EXAMINATION TYPE: CT ChestAbdPelvis w con DATE OF EXAM: 03/04/2018 INDICATION: Follow up scan per patient COMPARISON: 11/24/2017 CT DLP: 909.6 mGycm CONTRAST: Performed with Oral Contrast and with IV Contrast, patient injected with 80 mL of Isovue 300. TECHNIQUE: Axial images at 5 mm thick sections. Reconstructed images in the coronal plane. Delayed images through the kidneys. FINDINGS: CT CHEST: Portion of the thyroid visualized is normal. There is a 1.1 cm area of increased density in the right upper lobe. This is slightly less dense and focal compared to the previous examination. Series 4 image 22. Some pneumonitis changes at the anterior left lower lobe near the diaphragm. Couple of punctate densi ties are in the posterior medial left lung base measuring 0.4 cm in size. Series 4 images 55-56. Thes e were present previously. A posterior right lower lobe nodules present measuring 0.5 cm. Series 3 image 33. This was present pr eviously and appears less dense than comparison. Pneumatocele is in the superior segment right lower lobe. Series 4 image 39. No enlarged mediastinal or hilar adenopathy is evident. The ascending aorta diameter at the level of the main pulmonary artery is 3.3 cm. The main pulmonary artery diameter at the bifurcation is 2.5 cm. Coronary artery calcification is present. CT ABDOMEN: Liver: Normal Spleen: Normal Pancreas: Normal Adrenal glands: The adrenal glands are normal. Gallbladder: Cholelithiasis is present. Kidneys: No masses are evident. No hydronephrosis is present. No cysts are present. Delayed images were obtained through the kidneys, which remain unremarkable. Aorta: Vascular calcification is within the aorta. Inferior vena cava: Normal. CT PELVIS: Loops of bowel within the abdomen and pelvis are normal. There are loops of bowel which are incom pletely distended or lack oral contrast limiting their evaluation. Multiple diverticuli are within th e sigmoid colon. Appendix: Normal as visualized. Appendix is contrast-filled. No inflammatory changes are adjacent. Urinary bladder: Normal. Genitourinary structures: Prostate is prominent. Osseous structures: No suspicious lytic or sclerotic lesions. Facet changes are within the lower lumb ar spine. Lymph nodes: Supraclavicular region is unremarkable. Axillary regions mediastinal regions are normal. No enlarged mediastinal or hilar adenopathy is evident. No suspicious retrocaval periaortic adenopat hy is evident. No suspicious adenopathy within the pelvis or inguinal regions is evident. IMPRESSIONS: 1. Scattered bilateral lung nodules which appear to be improving from comparison. 2. Cholelithiasis. 3. Diverticulosis without acute diverticulitis.
== END | disposition home or self-care (01) ==
LOC: RADCTMAIN 10:11
PROVIDERS: ATTEND Internal Medicine Hematology & Oncology
DX: Z03.89 Encounter for observation for other suspected diseases and conditions ruled out (principal); R91.8 Other nonspecific abnormal finding of lung field; K80.20 Calculus of gallbladder without cholecystitis without obstruction; K57.90 Diverticulosis of intestine, part unspecified, without perforation or abscess without bleeding; C83.39 Diffuse large B-cell lymphoma, extranodal and solid organ sites
CPT/HCPCS: 82565; 84520; 71260; 74177; J1642; Q9967

== ENCOUNTER 2018-06-02 14:21 | Inpatient (IN) | payer MEDICARE ==
--- NOTE | 2018-06-02 14:56 | ED ---
General Adult HPI - General Chief complaint: Weakness Stated complaint: fatigue/chest & leg pain Time Seen by Provider: 06/02/18 14:25 Source: patient, RN notes reviewed Mode of arrival: wheelchair Limitations: no limitations - History of Present Illness Initial comments: This is a 62-year-old male who has a past medical history significant for leukemia and lymphoma. Patient has had reoccurrence of the lymphoma lash. Last chemotherapy was at the beginning of this year. Patient states over the last couple of weeks she's been much more fatigued and tired. Patient states today he went to see his hospital ward clerk they natasha blood on them and told his hemoglobin was too low. Patient was sent into the emergency department. Patient denies any black or bloody stools. Patient denies any vomiting. Patient denies any abdominal pain. Patient states he is short of breath with any exertion. Patient denies any chest pain or palpitations. Patient denies any recent fever chills or cough. Patient states he has had to be transfused and a past after he had chemo. Patient denies any near syncopal episode or syncopal episode. Patient continues to smoke. - Related Data Home Medications Medication Instructions Recorded Confirmed Multivitamin [Men's Multi-Vitamin] 1 tab PO DAILY 12/11/16 04/15/17 Vitamin B Complex 1 cap PO DAILY 12/11/16 04/15/17 Cyanocobalamin (Vitamin B-12) 1,000 mcg PO DAILY 02/18/17 04/15/17 [Vitamin B-12] Ferrous Sulfate [Feosol] 325 mg PO Q72H 02/18/17 04/15/17 Folic Acid 0.4 mg PO DAILY 02/18/17 04/15/17 Aspirin EC [Ecotrin Low Dose] 81 mg PO DAILY 03/17/17 04/15/17 Filgrastim Sndz [Neupogen] 480 mcg IJ DIRECTED 04/15/17 04/15/17 Previous Rx's Medication Instructions Recorded Ondansetron HCl [Zofran] 4 mg PO Q6HR PRN #50 tab 01/09/17 Atorvastatin [Lipitor] 40 mg PO DAILY #30 tab 04/16/17 Isosorbide Mononitrate ER [Imdur] 30 mg PO DAILY #30 tab 04/16/17 Metoprolol Succinate (ER) [Toprol 25 mg PO DAILY #30 tab.er.24h 04/16/17 XL] Allergies Allergy/AdvReac Type Severity Reaction Status Date / Time No Known Allergies Allergy Verified 06/02/18 14:37 Review of Systems ROS Statement: Those systems with pertinent positive or pertinent negative responses have been documented in the HPI. ROS Other: All systems not noted in ROS Statement are negative. Past Medical History Past Medical History: Cancer, Myocardial Infarction ([place]), Pneumonia Additional Past Medical History / Comment(s): 2000 diagnosed with CLL treated with chemo successfully, 08/2014 R side back mass-diffuse large B cell lymphoma treated with chemo, 11/2016 recurrent R back mass-diffuse large B cell lymphoma with current chemo, pancytopenia, ITP, anemia, pneumonia with sepsis, 02/20/17 NSTEMI with heart cath-tx medically. Last Myocardial Infarction Date:: 02/20/17 History of Any Multi-Drug Resistant Organisms: None Reported Past Surgical History: Heart Catheterization Additional Past Surgical History / Comment(s): 02/20/17 cardiac cath, 2000 BMA, R upper back mass-needle bxs, colonoscopy-normal, power port. Past Anesthesia/Blood Transfusion Reactions: No Reported Reaction Additional Past Anesthesia/Blood Transfusion Reaction / Comment(s): Pt has received blood in the past without reaction. 02/20/17 pt had chest pain/SOB (NSTEMI) 1 day post transfusion. Past Psychological History: No Psychological Hx Reported Smoking Status: Current every day smoker Past Alcohol Use History: Occasional Past Drug Use History: Unable to Obtain - Past Family History Father Additional Family Medical History / Comment(s): Father was an alcoholic. He committed suicide. Mother Family Medical History: Cancer Additional Family Medical History / Comment(s): Mother had Breast Cancer 25 yrs ago. She is 85yrs old. General Exam - General Exam Comments Initial Comments: GENERAL: Patient is well-developed and well-nourished. Patient is nontoxic and well- hydrated and is in no acute distress. ENT: Neck is soft and supple. No significant lymphadenopathy is noted. Oropharynx is clear. Moist mucous membranes. Neck has full range of motion without e liciting any pain. EYES: Patient conjunctiva are pale. Extraocular movements were intact and pupils were equal round and reactive to light. Eyelids were unremarkable. PULMONARY: Unlabored respirations. Good breath sounds bilaterally. No audible rales rhonchi or wheezing was noted. CARDIOVASCULAR: Patient is tachycardic at about 110 beats a minute ABDOMEN: Soft and nontender with normal bowel sounds. SKIN: Patient's skin is very pale. NEUROLOGIC: Patient is alert and oriented x3. Cranial nerves II through XII are grossly intact. Motor and sensory are also intact. Normal speech, volume and content. Symmetrical smile. MUSCULOSKELETAL: Normal extremities with adequate strength and full range of motion. LYMPHATICS: No significant lymphadenopathy is noted PSYCHIATRIC: Normal psychiatric evaluation. Limitations: no limitations Course Vital Signs 06/02/18 06/02/18 06/02/18 14:34 15:18 15:24 Temperature 97.8 F Pulse Rate 104 H 92 Respiratory 18 18 18 Rate Blood Pressure 106/58 139/75 O2 Sat by Pulse 100 100 Oximetry 06/02/18 16:06 Temperature Pulse Rate 90 Respiratory 18 Rate Blood Pressure 129/80 O2 Sat by Pulse 98 Oximetry Medical Decision Making - Medical Decision Making EKG shows sinus tachycardia at 101 bpm WV interval is on a 42 QRS is under 22 QT interval is 392 QTC is 508. Patient's EKG shows no ST segment elevation or depression or T wave abnormalities are noted. I discussed smoking cessation for greater than 3 minutes. The risks of smoking were discussed with the patient including but not limited to risks of cancer, stroke, coronary artery disease and COPD. Also discussed with the patient were multiple methods of quitting smoking. Lastly we discussed the financial costs of smoking. Patient's hemoglobin came back 5.4 slightly gave the patient 2 units irradiated packed red blood cells. I spoke with Dr. Raymond Andrade agreed with the course of treatment wanted the patient admitted overnight and he will follow-up in the morning. I spoke with Dr. Farley he agreed to admit the patient admitted the patient I wrote admitting orders I spoke with Dr. Farley he agreed to admit the patient admitted the patient. I spoke with Dr. Sujit Real as and he was okay with putting the patient to the floor as long as he was not actively bleeding and his vitals were stable. - Lab Data Result diagrams: 06/02/18 15:00 06/02/18 15:00 Lab Results 06/02/18 06/02/18 06/02/18 Range/Units 15:00 15:00 15:00 WBC 0.9 L* (3.8-10.6) k/uL RBC 1.63 L (4.30-5.90) m/uL Hgb 5.4 L* (13.0-17.5) gm/dL Hct 15.2 L* (39.0-53.0) % MCV 93.3 (80.0-100.0) fL MCH 33.3 (25.0-35.0) pg MCHC 35.8 (31.0-37.0) g/dL RDW 23.3 H (11.5-15.5) % Plt Count 16 L* (150-450) k/uL Neutrophils # SIDE LASTER STAPLE Differential Comment Manual Slide Review Performed Poikilocytosis Slight Anisocytosis Moderate Macrocytosis Slight PT (9.0-12.0) sec INR (<1.2) APTT (22.0-30.0) sec Sodium 142 (137-145) mmol/L Potassium 4.3 (3.5-5.1) mmol/L Chloride 111 H (98-107) mmol/L Carbon Dioxide 19 L (22-30) mmol/L Anion Gap 12 mmol/L BUN 28 H (9-20) mg/dL Creatinine 1.25 (0.66-1.25) mg/dL Est GFR (CKD-EPI)AfAm 70 (>60 ml/min/1.73 sqM) Est GFR (CKD-EPI)NonAf 61 (>60 ml/min/1.73 sqM) Glucose 124 H (74-99) mg/dL Calcium 9.4 (8.4-10.2) mg/dL Magnesium 2.2 (1.6-2.3) mg/dL Total Bilirubin 1.0 (0.2-1.3) mg/dL AST 20 (17-59) U/L ALT 23 (21-72) U/L Alkaline Phosphatase 110 (38-126) U/L Troponin I (0.000-0.034) ng/mL Total Protein 6.9 (6.3-8.2) g/dL Albumin 4.3 (3.5-5.0) g/dL Stool Occult Blood (Negative) Blood Type A Negative Blood Type Recheck No Antibody Screen NEGATIVE Crossmatch See Detail Spec Expiration Date 06/05/2018 - 229906/02/18 06/02/18 06/02/18 Range/Units 15:00 15:00 15:00 WBC (3.8-10.6) k/uL RBC (4.30-5.90) m/uL Hgb (13.0-17.5) gm/dL Hct (39.0-53.0) % MCV (80.0-100.0) fL MCH (25.0-35.0) pg MCHC (31.0-37.0) g/dL RDW (11.5-15.5) % Plt Count (150-450) k/uL Neutrophils # Differential Comment Manual Slide Review Poikilocytosis Anisocytosis Macrocytosis PT 11.2 (9.0-12.0) sec INR 1.1 (<1.2) APTT 19.7 L (22.0-30.0) sec Sodium (137-145) mmol/L Potassium (3.5-5.1) mmol/L Chloride (98-107) mmol/L Carbon Dioxide (22-30) mmol/L Anion Gap mmol/L BUN (9-20) mg/dL Creatinine (0.66-1.25) mg/dL Est GFR (CKD-EPI)AfAm (>60 ml/min/1.73 sqM) Est GFR (CKD-EPI)NonAf (>60 ml/min/1.73 sqM) Glucose (74-99) mg/dL Calcium (8.4-10.2) mg/dL Magnesium (1.6-2.3) mg/dL Total Bilirubin (0.2-1.3) mg/dL AST (17-59) U/L ALT (21-72) U/L Alkaline Phosphatase (38-126) U/L Troponin I <0.012 (0.000-0.034) ng/mL Total Protein (6.3-8.2) g/dL Albumin (3.5-5.0) g/dL Stool Occult Blood Negative (Negative) Blood Type Blood Type Recheck Antibody Screen Crossmatch Spec Expiration Date Critical Care Time Critical Care Time: Yes Total Critical Care Time: 35 Disposition Clinical Impression: Anemia, History of lymphoma Disposition: ADMITTED IP TO THIS [facility] Referrals: None,Stated [Primary Care Provider] - 1-2 days Time of Disposition: 16:11
[2018-06-02 15:22] LABS: Albumin 4.3 g/dL (3.5-5.0); Calcium 9.4 mg/dL (8.4-10.2); INR 1.1 (<1.2); Magnesium 2.2 mg/dL (1.6-2.3); Potassium 4.3 mmol/L (3.5-5.1); Prothrombin Time 11.2 sec (9.0-12.0); Total Protein 6.9 g/dL (6.3-8.2)
[2018-06-02 15:24] LABS: Anisocytosis Moderate; MCH 33.3 pg (25.0-35.0); MCHC 35.8 g/dL (31.0-37.0); MCV 93.3 fL (80.0-100.0); Macrocytosis Slight; Mean Platelet Volume 6.5; Poikilocytosis Slight; RBC 1.63 m/uL (4.30-5.90); RDW 23.3 % (11.5-15.5)
[2018-06-02 15:30] LABS: HCT 15.2 % (39.0-53.0); HGB 5.4 gm/dL (13.0-17.5); WBC 0.9 k/uL (3.8-10.6)
[2018-06-02 15:39] LABS: Partial Thromboplastin Time 19.7 sec (22.0-30.0)
[2018-06-02 15:52] LABS: Platelet Count 16 k/uL (150-450)
[2018-06-02] MEDS ORDERED: SODIUM CHLORIDE 0.9% 1,000 ML IV ONE (16:11)
--- NOTE | 2018-06-02 20:25 | HP ---
HISTORY AND PHYSICAL CHIEF COMPLAINT: This is a 62-year-old male with past medical history of leukemia, lymphoma, had recurrence of his lymphoma chemotherapy at the end of this year he is more fatigued and tired. He went to his round cutter operator, who natasha blood on him today. Hemoglobin was too low. He was sent to the emergency room. He denied any bleeding. No dark tarry stools. He was short of breath with exertion. Denied any chest pain. No recent fevers or cough. He states he was transfused before when he had chemo in the past. Denies any syncopal episodes. Continues to smoke. HOME MEDICATIONS: Include: 1. Cardiac medications. 2. Plavix. 3. Aspirin. 4. Beta blockers. 5. Neupogen. 6. Folic acid. 7. Feosol. ALLERGIES: NO KNOWN DRUG ALLERGIES. REVIEW OF SYSTEMS: Fourteen-point review of systems as mentioned above. PAST MEDICAL HISTORY: 1. Myocardial infarction. 2. Pneumonia. 3. Cancer. 4. Lymphoma. 5. Leukemia. 6. Large B-cell lymphoma. 7. Pancytopenia. 8. History of pneumonia with sepsis. 9. Heart catheterizations. 10.Cardiac cath in February 2017. SOCIAL HISTORY: Current everyday smoker. FAMILY HISTORY: Father alcoholic, suicide. Mother with cancer of the breast. PHYSICAL EXAMINATION: He is well developed, well nourished, well hydrated. HEENT: No adenopathy. Ophthalmologic: Pupils equal, round, reactive. Lungs are clear. CARDIOVASCULAR: Heart is rate is 110. Abdomen is soft. NEUROLOGIC: Cranial nerves are intact. MUSCULOSKELETAL: Normal range of motion. SKIN: Very pale. Temperature 97.8, pulse low 100s to 106, 139 over 50 to 75, respiratory rate 18 to 20. EKG showed sinus tachycardia. He was given 2 units of irradiated packed red blood cells with Dr. Andrade. Admitted overnight. Continue home medications, Plavix; since he has no actually bleeding, will continue on his Plavix and aspirin at this time and wait for Hematology to see the patient. His pancytopenia is secondary to leukemia or lymphoma; possibly reacting to the chemotherapy he has had in the past. MMODL / IJN: [id number] /
[2018-06-02] MEDS: METOPROLOL TARTRATE 25 MG TAB PO SCH (21:42)
[2018-06-03 07:13] LABS: Calcium 8.3 mg/dL (8.4-10.2); Potassium 3.8 mmol/L (3.5-5.1)
[2018-06-03 07:23] LABS: Anisocytosis Moderate; MCH 30.4 pg (25.0-35.0); MCHC 32.2 g/dL (31.0-37.0); MCV 94.3 fL (80.0-100.0); Macrocytosis Slight; Poikilocytosis Slight; RBC 1.69 m/uL (4.30-5.90); RDW 20.9 % (11.5-15.5)
[2018-06-03 07:54] LABS: WBC 0.4 k/uL (3.8-10.6)
[2018-06-03 07:55] LABS: HGB 5.1 gm/dL (13.0-17.5)
[2018-06-03 07:57] LABS: Platelet Count 10 k/uL (150-450)
[2018-06-03] MEDS: FOLIC ACID 1 MG TAB PO SCH (09:05)
[2018-06-03] MEDS: CLOPIDOGREL 75 MG TAB PO SCH (09:05)
[2018-06-03] MEDS: ASPIRIN 81 MG PO SCH (09:05)
[2018-06-03] MEDS: ASCORBIC ACID 500 MG TAB PO SCH (09:05)
[2018-06-03] MEDS: METOPROLOL TARTRATE 25 MG TAB PO SCH ×4 (09:05→22:39)
[2018-06-03] MEDS: ATORVASTATIN 80 MG TAB PO SCH (09:06)
[2018-06-03] MEDS: ISOSORBIDE MONONITRATE ER 30 MG TAB.ER.24H PO SCH (09:06)
[2018-06-03] MEDS: Vitamin B Complex [Vitamin B Complex] 1 CAP PO SCH (09:07)
--- NOTE | 2018-06-03 13:39 | P.CONS ---
History of Present Illness - Reason for Consult Consult date: 06/03/18 Pancytopenia history of lymphoma Requesting physician: Kannan Patel - Chief Complaint SOB - History of Present Illness Mr. Nevarez has a history of chronic lymphocytic leukemia/well-differentiated lymphoma diagnosed in December 2000. He initially received four cycles of f ludarabine and then developed hemolytic anemia and ITP. He responded well to prednisone. He did not require treatment for many years. He was seen in 2008 for leg pain with a negative w/u. He was seen in consult at [facility] in 06/04 , when admitted for fever,and pancytopenia. His w/u including bone marrow were negative for any evidence of malignancy. He was found to have infiltrates on CT chest and improved with broad spectrum antibiotics. He was supposed to f/u in 06/04 but did not do so. He had noted a small nodule on his right mid back around his hospital stay which he felt was a cyst. This increased in size considerably, and developed reddish blue discoloration. 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 Since late 09/04, he had also noted a mass developing in his right armpit. Additional staging with PET and bone marrow did not reveal any marrow involvement. He did appear to have at least stage III disease, with a retrocrural node involved. There was also questionable lung parenchymal involvement ( which would be stage IV) He was started on R-CHOP and is s/p 6 cycles, completing those in late 02/04. He was admitted after cycle 3, for a fever and SIRS. Cultures were negative, but imaging did show some developing lung infiltrates. He improved with antibiotics, and was discharged in early 01/04. Cycle 4 was delayed by a week. He did not f/u in the office after 03/06. He developed a new lump on his rt mid back around 11/06. This progressed in size, leading him to see Dr Segura. He had a needle core biopsy on 12/17/16, revealing a diffuse large B cell Non Hodgkin's Lymphoma. Testing for double hit is pending PET revealed uptake in the tonsils, neck nodes and presternal soft tissue, in addition to the skin. He was started on salvage chemo with R-ICE on 01/07/17, and is s/p 2 cycles. PET scan after cycle 2 showed an excellent response, with mild residual uptake with SUV 2.7 only in the rt upper bck nodule. He started cycle 3 on 02/19/17. After D 1, he suffered a NC, and chemo was stopped. He was found on cath to have complete RCA occlusion with collaterals, and a tight stenosis in the origin of the circumflex that was technically difficult to stent. He was not felt to be a candidate for surgery at this point, based on extent of disease. he was thus discharged on medical management. He had also developed signifcant anemia, which was felt to be contributing. He resumed chemo on 03/17/17, with dose reduction. He tolerated it well, with no recurrence of cardiac symptoms. as he had had only 1 day of C3, he had an additional cycle ( total 4 effectively), completing that on 04/17/17. He was then referred to [facility] BMT. He was somewhat undecided about the procedure after discussing it. He was ultimately agreeable, but it was recommended he have his CAD managed prior to the procedure. He was referred to interventional Cardiology at the [facility], and saw Dr Patel on 07/27/17. He had PTCA with successful stenting of LAD and left circumflex on 08/31/17. He was referred back to BMT, and was seen in 10/07. He ultimately decided not to have the procedure. He had no significant f/c/n/v. Energy level and appetite are fairly normal. He has not had recurrence of chest pain. He denies chills . Hearing and ear congestion are improved. He is following with ENT. He has not noted any new nodules. The rt upper back nodule has resolved. He's not had any unusual bruising or bleeding. His weight is stable. His ROS is otherwise as per HPI and negative out of 10. Review of Systems A 14 point review of systems assessed and completed and all negative except HPI Past Medical History Past Medical History: Cancer, Myocardial Infarction ([place]), Pneumonia Additional Past Medical History / Comment(s): 2000 diagnosed with CLL treated with chemo successfully, 08/2014 R side back mass-diffuse large B cell lymphoma treated with chemo, 11/2016 recurrent R back mass-diffuse large B cell lymphoma with current chemo, pancytopenia, ITP, anemia, pneumonia with sepsis, 02/20/17 NSTEMI with heart cath-tx medically. Last Myocardial Infarction Date:: 02/20/17 History of Any Multi-Drug Resistant Organisms: None Reported Past Surgical History: Heart Catheterization Additional Past Surgical History / Comment(s): 02/20/17 cardiac cath, 2000 BMA, R upper back mass-needle bxs, colonoscopy-normal, power port. Past Anesthesia/Blood Transfusion Reactions: No Reported Reaction Additional Past Anesthesia/Blood Transfusion Reaction / Comm: Pt has received blood in the past without reaction. 02/20/17 pt had chest pain/SOB (NSTEMI) 1 day post transfusion. Past Psychological History: No Psychological Hx Reported Additional Psychological History / Comment(s): Patient's adult daughter lives with him. There are no animals in the home. He is an ongoing tobacco smoker of at least one pack per day. Alcohol only rarely-many years ago he states he drank heavier. Denies significant injection drug use or other recreational drug use at this time. No experience. No recent travels. No international travel. 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 He does not have experience. He does not have extensive international travel. His never been to the [place]. No animal exposures in the home at this time. Smoking Status: Former smoker Past Alcohol Use History: Occasional Additional Past Alcohol Use History / Comment(s): Pt started smoking in 1969 and was a ppd smoker. He states he is cutting back on how much he smokes and knows he needs to quit. He drinks alcohol rarely for many years. Past Drug Use History: Unable to Obtain - Past Family History Father Additional Family Medical History / Comment(s): Father was an alcoholic. He committed suicide. Mother Family Medical History: Cancer Additional Family Medical History / Comment(s): Mother had Breast Cancer 25 yrs ago. She is 85yrs old. Medications and Allergies Home Medications Medication Instructions Recorded Confirmed Type Vitamin B Complex 1 cap PO DAILY 12/11/16 06/02/18 History Folic Acid 0.4 mg PO DAILY 02/18/17 06/02/18 History Aspirin EC [Ecotrin Low Dose] 81 mg PO DAILY 03/17/17 06/02/18 History Isosorbide Mononitrate ER [Imdur] 30 mg PO DAILY #30 tab 04/16/17 06/02/18 Rx Ascorbic Acid [Vitamin C] 500 mg PO DAILY 06/02/18 06/02/18 History Atorvastatin [Lipitor] 80 mg PO DAILY 06/02/18 06/02/18 History Clopidogrel [Plavix] 75 mg PO DAILY 06/02/18 06/02/18 History Metoprolol Tartrate [Lopressor] 25 mg PO QID 06/02/18 06/02/18 History Allergies Allergy/AdvReac Type Severity Reaction Status Date / Time No Known Allergies Allergy Verified 06/02/18 16:15 Physical Exam Vitals: Vital Signs Temp Pulse Pulse Resp BP BP Pulse Ox 06/03/18 12:25 96.5 F L 88 121/57 100 06/03/18 12:18 97.7 F 95 20 121/58 100 06/03/18 11:55 96.8 F L 91 121/58 99 06/03/18 08:56 97 06/03/18 08:00 96.5 F L 95 116/57 100 06/03/18 03:50 98.7 F 93 16 102/52 100 06/02/18 23:57 17 06/02/18 23:23 99 F 92 17 144/65 100 06/02/18 23:22 96.6 F L 84 16 115/58 99 06/02/18 21:32 99.3 F 96 16 130/59 100 06/02/18 21:02 98.5 F 105 H 16 143/66 100 06/02/18 20:52 98.2 F 94 16 132/60 06/02/18 20:32 18 06/02/18 20:31 98.4 F 96 20 146/67 100 06/02/18 18:37 100 18 06/02/18 17:04 98.6 F 86 18 139/69 100 06/02/18 17:03 98 F 100 18 145/65 100 06/02/18 16:06 90 18 129/80 98 06/02/18 15:24 18 06/02/18 15:18 92 18 139/75 100 06/02/18 14:34 97.8 F 104 H 18 106/58 100 Intake and Output 06/02/18 06/03/18 06/03/18 22:59 06:59 14:59 Intake Total 120 310 365 Output Total 400 300 Balance 120 -90 65 Intake: Intake, IV Titration 135 Amount Sodium Chloride 0.9% 1, 135 000 ml @ 75 mls/hr IV . [id number] Rx#:[id number] Oral 120 230 Blood Product 0 310 0 Rc Irr As1 Unit 0 310 [id number] Rc Irr As3 Unit 0 [id number] Output: Urine 400 300 Other: # Voids 0 Weight 77.9 kg 78.3 kg Gen: Alert and NAD HEad: NC NT Lungs CTA Bilateral HR Tachy Abd S/ND Ext No edema Neuro No sensory or motor deficits. Results CBC & Chem 7: 06/04/18 06:48 06/04/18 06:48 Labs: Abnormal Lab Results - Last 24 Hours (Table) 06/02/18 06/02/18 06/02/18 Range/Units 15:00 15:00 15:00 WBC 0.9 L* (3.8-10.6) k/uL RBC 1.63 L (4.30-5.90) m/uL Hgb 5.4 L* (13.0-17.5) gm/dL Hct 15.2 L* (39.0-53.0) % RDW 23.3 H (11.5-15.5) % Plt Count 16 L* (150-450) k/uL APTT (22.0-30.0) sec Chloride 111 H (98-107) mmol/L Carbon Dioxide 19 L (22-30) mmol/L BUN 28 H (9-20) mg/dL Glucose 124 H (74-99) mg/dL Calcium (8.4-10.2) mg/dL Crossmatch See Detail 06/02/18 06/03/18 06/03/18 Range/Units 15:00 06:26 06:26 WBC 0.4 L* (3.8-10.6) k/uL RBC 1.69 L (4.30-5.90) m/uL Hgb 5.1 L* (13.0-17.5) gm/dL Hct 16.0 L* (39.0-53.0) % RDW 20.9 H (11.5-15.5) % Plt Count 10 L* (150-450) k/uL APTT 19.7 L (22.0-30.0) sec Chloride 115 H (98-107) mmol/L Carbon Dioxide 20 L (22-30) mmol/L BUN 22 H (9-20) mg/dL Glucose 104 H (74-99) mg/dL Calcium 8.3 L (8.4-10.2) mg/dL Crossmatch Assessment and Plan Plan: Assessment and Recommendations: 1. Pancytopenia: - Plan for Bone Marrow Biopsy while inpatient tomorrow - NPO After Midnight 2. Hx: Lymphoma. - Will check repeat CBC< CMP, LDH, URic acid, COags in am Physician Attestation: I have completed the full history and physical and devloped the complete impression and plan, agree with above dictation, dictated as a scribe
[2018-06-04 07:16] LABS: Anisocytosis Slight; HCT 20.1 % (39.0-53.0); MCH 31.5 pg (25.0-35.0); MCV 95.6 fL (80.0-100.0); Macrocytosis Slight; Mean Platelet Volume 7.5; Poikilocytosis Slight; RDW 19.4 % (11.5-15.5)
[2018-06-04 07:23] LABS: WBC 0.6 k/uL (3.8-10.6)
[2018-06-04 07:24] LABS: HGB 6.6 gm/dL (13.0-17.5); Platelet Count 9 k/uL (150-450)
[2018-06-04 08:04] LABS: Calcium 8.4 mg/dL (8.4-10.2)
[2018-06-04] MEDS: ASPIRIN 81 MG PO SCH (08:56)
[2018-06-04] MEDS: ASCORBIC ACID 500 MG TAB PO SCH (09:02)
[2018-06-04] MEDS: ISOSORBIDE MONONITRATE ER 30 MG TAB.ER.24H PO SCH (09:02)
[2018-06-04] MEDS: METOPROLOL TARTRATE 25 MG TAB PO SCH ×4 (09:02→20:27)
[2018-06-04] MEDS: FOLIC ACID 1 MG TAB PO SCH (09:02)
[2018-06-04] MEDS: ATORVASTATIN 80 MG TAB PO SCH (09:03)
[2018-06-04] MEDS: CLOPIDOGREL 75 MG TAB PO SCH (09:03)
[2018-06-04] MEDS: Vitamin B Complex [Vitamin B Complex] 1 CAP PO SCH (09:05)
--- NOTE | 2018-06-04 14:19 | P.PN ---
Subjective Progress Note Date: 06/04/18 Principal diagnosis: pancytopenia Will have Bone Marrow Biopsy today with Dr. Andrade Persistent Pancytopenia Transfusions today with irradiated platelets and PRBC Objective - Vital Signs Vital signs: Vital Signs Temp 98.2 F 06/04/18 12:49 Pulse 76 06/04/18 12:49 Resp 18 06/04/18 12:49 BP 111/55 06/04/18 12:49 Pulse Ox 100 06/04/18 12:49 Intake & Output 06/03/18 06/04/18 06/04/18 18:59 06:59 18:59 Intake Total 1127 160 Output Total 1050 200 Balance 77 -200 160 Weight 79.7 kg Intake: IV 160 .9 160 Intake, IV Titration 135 Amount Sodium Chloride 0.9% 1, 135 000 ml @ 75 mls/hr IV . [id number] [facility] Rx#:[id number] Oral 682 Blood Product 310 Rc Irr As3 Unit 310 [id number] Output: Urine 1050 200 Other: # Voids 0 - Exam Gen: Alert and NAD HEad: NC NT Lungs CTA Bilateral HR Tachy Abd S/ND Ext No edema Neuro No sensory or motor deficits. - Labs CBC & Chem 7: 06/04/18 06:48 06/04/18 06:48 Labs: Abnormal Lab Results - Last 24 Hours (Table) 06/02/18 06/04/18 06/04/18 Range/Units 15:00 06:48 06:48 WBC 0.6 L* (3.8-10.6) k/uL RBC 2.10 L (4.30-5.90) m/uL Hgb 6.6 L* D (13.0-17.5) gm/dL Hct 20.1 L (39.0-53.0) % RDW 19.4 H (11.5-15.5) % Plt Count 9 L* (150-450) k/uL Chloride 116 H (98-107) mmol/L Carbon Dioxide 18 L (22-30) mmol/L Glucose 100 H (74-99) mg/dL Crossmatch See Detail Assessment and Plan Plan: Assessment and Recommendations: 1. Pancytopenia: - Plan for Bone Marrow Biopsy while inpatient tomorrow - NPO After Midnight - Urbano Culture - Prophylaxis Levaquin and Acyclovir - No zarxio as need to confirm not a leukemia picture - Transfusion support hemoglobin less then 7 and platelet less - Transfusions need to be irradiated 2. Hx: Lymphoma. - Will check repeat CBC, CMP, LDH, URic acid, Coags in am - Check Immunoglobulins - Restage CT scans (Last in February 2018) Chest abdomen and Pelvis, ordered for Thursday Physician Attestation: I have completed the full history and physical and devloped the complete impression and plan, agree with above dictation, dictated as a scribe
[2018-06-04] MEDS ORDERED: IV FLUID CONTINUATION 1,000 ML IV ONE (14:33)
[2018-06-04] MEDS ORDERED: PROPOFOL 10 MG/ML 20 ML VIAL IV ONE (14:33)
[2018-06-04] MEDS ORDERED: PHENYLEPHRINE-0.9% NACL SYG 1 MG/10 ML SYRINGE ONE (14:33)
[2018-06-04] MEDS ORDERED: LIDOCAINE 2% (PF) 20 MG/ML 10 ML AMP SQ ONE ×2 (14:34→14:40)
--- NOTE | 2018-06-04 14:54 | P.PCN ---
Date of Procedure: 06/04/18 Preoperative Diagnosis: Pancytopenia. History of non-Hodgkin's lymphoma status post chemotherapy Postoperative Diagnosis: Same Procedure(s) Performed: Bone marrow aspiration biopsy Anesthesia: MAC Surgeon: Jeffry Andrade Wool Brusher #1: Stated None Estimated Blood Loss (ml): 1 Pathology: other Condition: stable Disposition: floor Indications for Procedure: History of non-Hodgkin's lymphoma status post chemotherapy 2. Now with new onset severe pancytopenia. 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 Bone marrow being done for further workup Operative Findings: adequate sample Description of Procedure: We will procedure was discussed in detail with the patient on the floor. Informed consent was obtained on the floor. He was brought to the outpatient endoscopy suite, and placed in the left lateral decubitus position. Area over both posterior hilar crest was cleaned and prepped with chlorhexidine and sterile draping. IV sedation was then initiated. No current CT of the adm inistered with lidocaine. A Jamshidi needle was then inserted, and bone marrow aspirate and biopsy obtained. On withdrawal of the needle, hemostasis was easily achieved. Blood loss was minimal and recovery from sedation was satisfactory. He appeared to have tolerated the procedure well without any obvious immediate complications.
[2018-06-04] MEDS: LEVOFLOXACIN 500 MG TAB PO SCH (15:08)
[2018-06-04 15:48] LABS: Appearance,Urine Clear (Clear); Bilirubin,Urine Negative (Negative); Blood,Urine Negative (Negative); Color,Urine Light Yellow; Glucose,Urine (UA) Negative (Negative); Ketones,Urine Negative (Negative); Leukocyte Esterase,Urine Negative (Negative); Nitrite,Urine Negative (Negative); Protein,Urine Negative (Negative); Specific Gravity,Urine 1.009 (1.001-1.035); Urobilinogen,Urine <2.0 mg/dL (<2.0)
[2018-06-04 16:02] LABS: Uric Acid 3.2 mg/dL (3.5-8.5)
[2018-06-04 16:14] LABS: Partial Thromboplastin Time 25.8 sec (22.0-30.0); Prothrombin Time 10.7 sec (9.0-12.0)
[2018-06-04] MEDS: ACYCLOVIR 200 MG CAP PO SCH (20:27)
[2018-06-05] MEDS: IOPAMIDOL-300 CONTRAST 30 ML VIAL (ORAL USE) PO PRN ×2 (05:26→06:56)
--- NOTE | 2018-06-05 07:43 | CT ---
EXAMINATION TYPE: CT ChestAbdPelvis w con DATE OF EXAM: 06/05/2018 COMPARISON: Previous study dated 03/04/2018. HISTORY: Lymphoma CT DLP: 862.6 mGycm Automated exposure control for dose reduction was used. TECHNIQUE: Helical acquisition through the abdomen and pelvis was obtained without oral contrast but following the intravenous administration of 100 mL of Isovue 300. The data was formatted in the axia l, coronal and sagittal projections. FINDINGS: There is mild emphysematous changes within the lungs. Nodule adjacent to the major fissure on the right has increased in size from 9.7 mm to 11.8 mm. A 4.3 mm nodule in the superior segment of the right lower lobe is increased in size from 4.3 mm to 5.8 mm. There is a new 8.8 mm nodule in the posterior medial basal segment of the left lower lobe. This was not present with certainty previousl y. There is minimal bullous change in the right lower lobe. There is no significant axillary there is an 8 mm gallstone within the gallbladder. The liver and spl een are otherwise normal. Both adrenal glands are normal. There are vascular calcifications relating to both kidneys. The kidneys are otherwise normal. The pancreas is unremarkable. There is moderate atheromatous calcification of the visualized arterial tree. The bladder is unremarkable. There is extensive uncomplicated diverticular change involving the sigmoid colon colon and left side of the colon. I do not see radiographic evidence of diverticulitis. The appendix is normal. Small bowel loops are of normal caliber. There is no significant free fluid or free air. There is degenerative disc disease, facet arthropathy and hypertrophic spondylosis within the spine. IMPRESSION: 1. ENLARGING LUNG NODULES. 2. CHOLELITHIASIS. 3. DIVERTICULOSIS. 4. COPD.
[2018-06-05] MEDS: ATORVASTATIN 80 MG TAB PO SCH (08:30)
[2018-06-05] MEDS: METOPROLOL TARTRATE 25 MG TAB PO SCH ×4 (08:30→20:45)
[2018-06-05] MEDS: ACYCLOVIR 200 MG CAP PO SCH ×2 (08:30→20:45)
[2018-06-05] MEDS: FOLIC ACID 1 MG TAB PO SCH (08:31)
[2018-06-05] MEDS: ISOSORBIDE MONONITRATE ER 30 MG TAB.ER.24H PO SCH (08:31)
[2018-06-05] MEDS: ASCORBIC ACID 500 MG TAB PO SCH (08:31)
[2018-06-05 12:10] LABS: Immunoglobulin M 74.8 mg/dL (40.0-280.0)
[2018-06-05 12:54] LABS: Anisocytosis Moderate; HCT 21.2 % (39.0-53.0); HGB 7.5 gm/dL (13.0-17.5); MCH 32.7 pg (25.0-35.0); MCHC 35.5 g/dL (31.0-37.0); MCV 92.3 fL (80.0-100.0); Macrocytosis Slight; Mean Platelet Volume 7.6; RBC 2.29 m/uL (4.30-5.90); RDW 20.4 % (11.5-15.5); WBC 0.7 k/uL (3.8-10.6)
[2018-06-05 12:55] LABS: Platelet Count 42 k/uL (150-450)
--- NOTE | 2018-06-05 16:23 | P.PN ---
Subjective Feels Ok Stronger after supportive transfusion Stated wanting to go home Objective - Vital Signs Vital signs: Vital Signs Temp 98.2 F 06/05/18 12:00 Pulse 72 06/05/18 12:00 Resp 18 06/05/18 12:00 BP 132/61 06/05/18 12:00 Pulse Ox 97 06/05/18 12:00 Intake & Output 06/04/18 06/05/18 06/05/18 18:59 06:59 18:59 Intake Total 880 518 240 Output Total 600 Balance 880 -82 240 Intake: IV 520 .9 320 Oral 360 240 Blood Product 0 518 Platelet Irr Pheresis 2 208 Acda Unit [id number] Rc Irr As1 Unit 0 310 [id number] Output: Urine 600 Other: Voiding Method Toilet Urinal # Voids 2 3 - Constitutional General appearance: Present: no acute distress - EENT Eyes: Present: EOMI, PERRLA - Neck Neck: Present: normal ROM - Respiratory Respiratory: bilateral: CTA - Cardiovascular Rhythm: regular Heart sounds: normal: S1, S2 - Gastrointestinal General gastrointestinal: Present: soft - Integumentary Integumentary: Present: pale - Neurologic Neurologic: Present: CNII-XII intact - Musculoskeletal Musculoskeletal: Present: gait normal - Psychiatric Psychiatric: Present: A&O x's 3 - Labs CBC & Chem 7: 06/05/18 11:59 06/04/18 06:48 Labs: Abnormal Lab Results - Last 24 Hours (Table) 06/02/18 06/04/18 06/05/18 Range/Units 15:00 14:56 11:59 WBC 0.7 L* (3.8-10.6) k/uL RBC 2.29 L (4.30-5.90) m/uL Hgb 7.5 L (13.0-17.5) gm/dL Hct 21.2 L (39.0-53.0) % RDW 20.4 H (11.5-15.5) % Plt Count 42 L D (150-450) k/uL IgG 525.0 L (700.0-1600.0) mg/dL Crossmatch See Detail Assessment and Plan (1) Pancytopenia Narrative/Plan: Received a call from Dr Auguste (Pathologist @ [facility] [place] > Bone marrow is C/W AML, final results pending Current Visit: Yes Status: Acute Code(s): D61.818 - OTHER PANCYTOPENIA SNOMED Code(s): 795191185 Plan: I discussed Bone marrow results with Edon > AML Discussed overall prognosis and options of care with patient/ Recommend induction Chemotherapy with High-dose Cytarabine , not a candidate for Anthracycline > he agrees Will transfer to Oncology and start HDARAC on 06/07/17 Answered all questions,concerns
[2018-06-05] MEDS: Vitamin B Complex [Vitamin B Complex] 1 CAP PO SCH (16:38)
[2018-06-05] MEDS: LEVOFLOXACIN 500 MG TAB PO SCH (16:38)
--- NOTE | 2018-06-05 20:17 | PN ---
PROGRESS NOTE SUBJECTIVE: 62-year-old white male with acute leukemia. He has had 3 units of blood and one unit of packed red blood cells. He is still pancytopenic and significant natures. Cardiovascular S1, S2. Lungs are clear. GI soft. ASSESSMENT: Acute leukemia. Will need to stay in the hospital. Monitor blood counts and possibly more transfusion will be needed and possible acute treatment for leukemia will be needed. MMODL / IJN: [id number] /
[2018-06-06 06:46] LABS: Anisocytosis Moderate; HCT 22.4 % (39.0-53.0); HGB 7.6 gm/dL (13.0-17.5); MCH 31.2 pg (25.0-35.0); MCHC 33.7 g/dL (31.0-37.0); MCV 92.5 fL (80.0-100.0); Macrocytosis Slight; Mean Platelet Volume 7.1; RBC 2.42 m/uL (4.30-5.90); RDW 20.2 % (11.5-15.5)
[2018-06-06 06:48] LABS: Platelet Count 32 k/uL (150-450); WBC 0.6 k/uL (3.8-10.6)
[2018-06-06 07:05] LABS: Albumin 3.4 g/dL (3.5-5.0); Calcium 8.7 mg/dL (8.4-10.2); Potassium 4.3 mmol/L (3.5-5.1); Total Bilirubin 0.8 mg/dL (0.2-1.3); Total Protein 5.9 g/dL (6.3-8.2)
[2018-06-06] MEDS: Vitamin B Complex [Vitamin B Complex] 1 CAP PO SCH (09:23)
[2018-06-06] MEDS: METOPROLOL TARTRATE 25 MG TAB PO SCH ×4 (09:25→21:02)
[2018-06-06] MEDS: FOLIC ACID 1 MG TAB PO SCH (09:25)
[2018-06-06] MEDS: ACYCLOVIR 200 MG CAP PO SCH ×2 (09:26→21:02)
[2018-06-06] MEDS: ISOSORBIDE MONONITRATE ER 30 MG TAB.ER.24H PO SCH (09:26)
[2018-06-06] MEDS: ASCORBIC ACID 500 MG TAB PO SCH (09:26)
[2018-06-06] MEDS: ATORVASTATIN 80 MG TAB PO SCH (09:26)
[2018-06-06] MEDS: LEVOFLOXACIN 500 MG TAB PO SCH (18:30)
--- NOTE | 2018-06-06 22:17 | P.PN ---
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 his biopsy bone marrow recently performed gives in appearance of acute myeloblastic leukemia, patient is being considered for's chemotherapy with the high-dose cytarabine, Objective - Vital Signs Vital signs: Vital Signs Temp 97.6 F 06/06/18 20:00 Pulse 89 06/06/18 20:00 Resp 18 06/06/18 20:00 BP 109/56 06/06/18 20:00 Pulse Ox 97 06/06/18 20:00 Intake & Output 06/06/18 06/06/18 06/07/18 06:59 18:59 06:59 Intake Total 1320 Balance 1320 Weight 78.8 kg Intake: IV 20 .9 20 Oral 1300 Other: Voiding Method Toilet Toilet Urinal Urinal # Voids 1 1 - Exam - Constitutional General appearance: Present: no acute distress - EENT Eyes: Present: EOMI, PERRLA - Neck Neck: Present: normal ROM - Respiratory Respiratory: bilateral: CTA - Cardiovascular Rhythm: regular Heart sounds: normal: S1, S2 - Gastrointestinal General gastrointestinal: Present: soft - Integumentary Integumentary: Present: pale - Neurologic Neurologic: Present: CNII-XII intact - Musculoskeletal Musculoskeletal: Present: gait normal - Psychiatric Psychiatric: Present: A&O x's 3 - Labs CBC & Chem 7: 06/06/18 06:02 06/06/18 06:02 Labs: Abnormal Lab Results - Last 24 Hours (Table) 06/06/18 06/06/18 Range/Units 06:02 06:02 WBC 0.6 L* (3.8-10.6) k/uL RBC 2.42 L (4.30-5.90) m/uL Hgb 7.6 L (13.0-17.5) gm/dL Hct 22.4 L (39.0-53.0) % RDW 20.2 H (11.5-15.5) % Plt Count 32 L (150-450) k/uL Chloride 110 H (98-107) mmol/L Carbon Dioxide 21 L (22-30) mmol/L AST 16 L (17-59) U/L Total Protein 5.9 L (6.3-8.2) g/dL Albumin 3.4 L (3.5-5.0) g/dL Microbiology - Last 24 Hours (Table) 06/04/18 15:15 Blood Culture - Preliminary Blood No Growth after 48 hours Assessment and Plan Assessment: 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 Pancytopenia including anemia and leukopenia and thrombocytopenia Bilateral centimeter in subcentimeter multiple lung nodules likely related to above Severe COPD emphysema Plan: Chemotherapy as planned above Continue deep breathing exercises incentive spirometry Monitor chemistry as well as CBC very closely Patient to be started on chemotherapy with cytarabine for tomorrow Further recommendations pending plan of care as per clinical response of the patient Patient would require close monitoring and follow-up for lung nodules will set him up on outpatient setting Time with Patient: Greater than 30
[2018-06-07] MEDS: ISOSORBIDE MONONITRATE ER 30 MG TAB.ER.24H PO SCH (08:57)
[2018-06-07] MEDS: ACYCLOVIR 200 MG CAP PO SCH ×2 (08:57→21:38)
[2018-06-07] MEDS: ASCORBIC ACID 500 MG TAB PO SCH (08:57)
[2018-06-07] MEDS: FOLIC ACID 1 MG TAB PO SCH (08:57)
[2018-06-07] MEDS: ATORVASTATIN 80 MG TAB PO SCH (08:58)
[2018-06-07] MEDS: Vitamin B Complex [Vitamin B Complex] 1 CAP PO SCH (08:58)
[2018-06-07] MEDS: METOPROLOL TARTRATE 25 MG TAB PO SCH ×4 (08:58→21:39)
[2018-06-07] MEDS: LEVOFLOXACIN 500 MG TAB PO SCH (14:32)
[2018-06-07] MEDS: FLUCONAZOLE 100 MG TAB PO SCH (14:32)
--- NOTE | 2018-06-07 14:40 | PN ---
PROGRESS NOTE SUBJECTIVE: A 62-year-old white male with anemia, history of lymphoma and acute leukemia attack. Has severe pancytopenia. Is going to be transferred over to the other floor for chemotherapy treatment for acute leukemia at this time. CARDIOVASCULAR: S1-S2. LUNGS: Clear. GI: Soft. He is sitting up in bed, eating. ASSESSMENT: Acute leukemia, anemia status post blood transfusion, history of lymphoma, immune deficiency. Please see further orders in the chart. MMODL / IJN: [id number] /
[2018-06-07 15:38] LABS: Partial Thromboplastin Time 25.6 sec (22.0-30.0); Prothrombin Time 10.7 sec (9.0-12.0)
[2018-06-07 15:46] LABS: Anisocytosis Slight; HCT 22.6 % (39.0-53.0); HGB 7.8 gm/dL (13.0-17.5); MCH 32.2 pg (25.0-35.0); MCHC 34.6 g/dL (31.0-37.0); Macrocytosis Slight; Mean Platelet Volume 7.5; Platelet Count 33 k/uL (150-450); RBC 2.43 m/uL (4.30-5.90); RDW 19.9 % (11.5-15.5)
[2018-06-07 15:47] LABS: Albumin 3.6 g/dL (3.5-5.0); Calcium 8.7 mg/dL (8.4-10.2); Magnesium 2.2 mg/dL (1.6-2.3); Phosphorus 3.4 mg/dL (2.5-4.5); Potassium 4.1 mmol/L (3.5-5.1); Total Bilirubin 0.7 mg/dL (0.2-1.3); Total Protein 6.1 g/dL (6.3-8.2); Uric Acid 3.6 mg/dL (3.5-8.5)
[2018-06-07 15:48] LABS: WBC 0.7 k/uL (3.8-10.6)
--- NOTE | 2018-06-07 23:05 | P.PN ---
Subjective Progress Note Date: 06/07/18 Principal diagnosis: pancytopenia - New Diagnosis Acute Leukemia Bone Marrow Biopsy Resulted with Acute Leukemia patient to begin High Dose Induction Treatment with Cytarabine today Objective - Vital Signs Vital signs: Vital Signs Temp 99.6 F 06/07/18 20:00 Pulse 82 06/07/18 20:00 Resp 16 06/07/18 20:00 BP 109/68 06/07/18 20:00 Pulse Ox 100 06/07/18 20:00 Intake & Output 06/07/18 06/07/18 06/08/18 06:59 18:59 06:59 Intake Total 462 Output Total 1000 Balance -538 Weight 78.4 kg Intake: Oral 462 Output: Urine 1000 Other: Voiding Method Toilet Toilet Urinal Urinal # Voids 1 - Exam Gen: Alert and NAD HEad: NC NT Lungs CTA Bilateral HR Tachy Abd S/ND Ext No edema Neuro No sensory or motor deficits. - Labs CBC & Chem 7: 06/07/18 15:01 06/07/18 15:01 Labs: Abnormal Lab Results - Last 24 Hours (Table) 06/02/18 06/07/18 06/07/18 Range/Units 15:00 15:01 15:01 WBC 0.7 L* (3.8-10.6) k/uL RBC 2.43 L (4.30-5.90) m/uL Hgb 7.8 L (13.0-17.5) gm/dL Hct 22.6 L (39.0-53.0) % RDW 19.9 H (11.5-15.5) % Plt Count 33 L (150-450) k/uL BUN 21 H (9-20) mg/dL Glucose 109 H (74-99) mg/dL AST 15 L (17-59) U/L Total Protein 6.1 L (6.3-8.2) g/dL Crossmatch See Detail Microbiology - Last 24 Hours (Table) 06/04/18 15:15 Blood Culture - Preliminary Blood No Growth after 72 hours Assessment and Plan Plan: Assessment and Recommendations: 1. Pancytopenia: - Bone Marrow Results - AML - Day one of High Dose Cytarabine Induction therapy today - Monitor daily CBC, Transfusion support to continue with irradiated blood products - Questions answered, will transfer patient to Oncology floor for treatment 2. Hx: Lymphoma. - Will check repeat CBC< CMP, LDH, Uric acid, Coags in am Physician Attestation: I have completed the full history and physical and de vloped the complete impression and plan, agree with above dictation, dictated as a scribe
[2018-06-08] MEDS: PANTOPRAZOLE 40 MG TABLET PO SCH ×2 (08:33→17:28)
[2018-06-08] MEDS: FAMOTIDINE 20 MG/2 ML VIAL IV SCH (08:34)
[2018-06-08] MEDS: METOPROLOL TARTRATE 25 MG TAB PO SCH ×4 (08:34→21:29)
[2018-06-08] MEDS: FLUCONAZOLE 100 MG TAB PO SCH (08:34)
[2018-06-08] MEDS: ACYCLOVIR 200 MG CAP PO SCH ×2 (08:34→21:29)
[2018-06-08] MEDS: ASCORBIC ACID 500 MG TAB PO SCH (08:34)
[2018-06-08] MEDS: ATORVASTATIN 80 MG TAB PO SCH (08:34)
[2018-06-08] MEDS: ISOSORBIDE MONONITRATE ER 30 MG TAB.ER.24H PO SCH (08:34)
[2018-06-08] MEDS: FOLIC ACID 1 MG TAB PO SCH (08:34)
[2018-06-08] MEDS: DEXAMETHASONE SOD PHOSPHATE 10 MG/ML 1 ML VIAL IV SCH (08:34)
[2018-06-08] MEDS: prednisoLONE ACETATE 1% OPHTH DROPS 5 ML BTL BOTH EYES SCH ×4 (08:35→22:09)
[2018-06-08 08:47] LABS: Anisocytosis Slight; HGB 7.4 gm/dL (13.0-17.5); MCH 30.5 pg (25.0-35.0); MCHC 33.8 g/dL (31.0-37.0); MCV 90.3 fL (80.0-100.0); Mean Platelet Volume 7.7; Poikilocytosis Slight; RBC 2.44 m/uL (4.30-5.90)
[2018-06-08 09:00] LABS: Platelet Count 21 k/uL (150-450); WBC 0.5 k/uL (3.8-10.6)
[2018-06-08] MEDS ORDERED: ONDANSETRON 4 MG/2 ML VIAL IVP PRN (09:00)
[2018-06-08] MEDS: Vitamin B Complex [Vitamin B Complex] 1 CAP PO SCH (09:08)
[2018-06-08 09:10] LABS: Albumin 3.5 g/dL (3.5-5.0); Calcium 8.6 mg/dL (8.4-10.2); Magnesium 2.1 mg/dL (1.6-2.3); Potassium 4.1 mmol/L (3.5-5.1); Total Bilirubin 0.7 mg/dL (0.2-1.3); Uric Acid 3.8 mg/dL (3.5-8.5)
[2018-06-08] MEDS: SODIUM CHLORIDE 0.9% 1,000 ML IV SCH ×2 (09:10→22:14)
[2018-06-08] MEDS: SALT AND SODA MOUTHWASH 1,000 ML PO SCH ×4 (09:10→21:30)
[2018-06-08] MEDS ORDERED: CYTARABINE IV ONE (10:00)
[2018-06-08] MEDS ORDERED: SODIUM CHLORIDE 0.9% IV ONE (10:00)
[2018-06-08] MEDS: ONDANSETRON 16 MG in SODIUM CHLORIDE 0.9% 50 ML IVPB SCH (10:05)
--- NOTE | 2018-06-08 13:23 | P.PN ---
Subjective Progress Note Date: 06/08/18 Principal diagnosis: pancytopenia - New Diagnosis Acute Leukemia Bone Marrow Biopsy Resulted with Acute Leukemia patient to begin High Dose Induction Treatment with Cytarabine today Objective - Vital Signs Vital signs: Vital Signs Temp 97.6 F 06/08/18 11:58 Pulse 79 06/08/18 11:58 Resp 20 06/08/18 11:58 BP 120/74 06/08/18 11:58 Pulse Ox 99 06/08/18 11:58 Intake & Output 06/07/18 06/08/18 06/08/18 18:59 06:59 18:59 Intake Total 462 540 Output Total 1000 Balance -538 540 Weight 82 kg Intake: Oral 462 540 Output: Urine 1000 Other: Voiding Method Toilet Toilet Toilet Urinal Urinal Urinal # Voids 1 - Exam Gen: Alert and NAD HEad: NC NT Lungs CTA Bilateral HR Tachy Abd S/ND Ext No edema Neuro No sensory or motor deficits. - Labs CBC & Chem 7: 06/08/18 08:09 06/08/18 08:09 Labs: Abnormal Lab Results - Last 24 Hours (Table) 06/07/18 06/07/18 06/08/18 Range/Units 15:01 15:01 08:09 WBC 0.7 L* 0.5 L* (3.8-10.6) k/uL RBC 2.43 L 2.44 L (4.30-5.90) m/uL Hgb 7.8 L 7.4 L (13.0-17.5) gm/dL Hct 22.6 L 22.0 L (39.0-53.0) % RDW 19.9 H 19.0 H (11.5-15.5) % Plt Count 33 L 21 L (150-450) k/uL Chloride (98-107) mmol/L Carbon Dioxide (22-30) mmol/L BUN 21 H (9-20) mg/dL Glucose 109 H (74-99) mg/dL AST 15 L (17-59) U/L Total Protein 6.1 L (6.3-8.2) g/dL 06/08/18 Range/Units 08:09 WBC (3.8-10.6) k/uL RBC (4.30-5.90) m/uL Hgb (13.0-17.5) gm/dL Hct (39.0-53.0) % RDW (11.5-15.5) % Plt Count (150-450) k/uL Chloride 110 H (98-107) mmol/L Carbon Dioxide 21 L (22-30) mmol/L BUN 24 H (9-20) mg/dL Glucose 138 H (74-99) mg/dL AST 14 L (17-59) U/L Total Protein 6.0 L (6.3-8.2) g/dL Microbiology - Last 24 Hours (Table) 06/04/18 15:15 Blood Culture - Preliminary Blood No Growth after 72 hours Assessment and Plan Plan: Assessment and Recommendations: 1. Pancytopenia: - Bone Marrow Results - AML - Day one of High Dose Cytarabine Induction therapy today - Monitor daily CBC, Transfusion support to continue with irradiated blood products - Questions answered, will transfer patient to Oncology floor for treatment - Monitor Daily CBC, CMP, MAg, Phos, Uric Acid On HiDAC - Pred FOrte Eye drops 2. Hx: Lymphoma. - Will check repeat CBC< CMP, LDH, Uric acid, Coags in am Physician Attestation: I have completed the full history and physical and devloped the complete impression and plan, agree with above dictation, dictated as a scribe
[2018-06-08] MEDS: LEVOFLOXACIN 500 MG TAB PO SCH (15:25)
[2018-06-08] MEDS: SODIUM CHLORIDE 0.9% IV SCH (21:29)
[2018-06-08] MEDS: CYTARABINE IV SCH (21:29)
--- NOTE | 2018-06-09 07:21 | PN ---
PROGRESS NOTE This 62-year-old white male was admitted with acute leukemia, been started on IV medications for acute leukemia due to severe pancytopenia. He is on cytarabine 2000 mg/1000 mg q.48 hours. He is getting one dose today and another dose in 2 days. He is still on his cardiac medications and blood pressure medications. Lungs are clear. CARDIOVASCULAR: S1, S2. White count 0.5, hemoglobin 7.4, platelet count 21. Bone marrow biopsy was done. Vital signs are reviewed. ASSESSMENT: 1. Pancytopenia. 2. Acute myelocytic leukemia. Transfuse as needed. Continue on daily blood draws. MMODL / IJN: [id number] /
[2018-06-09] MEDS: METOPROLOL TARTRATE 25 MG TAB PO SCH ×4 (08:01→21:28)
[2018-06-09] MEDS: ISOSORBIDE MONONITRATE ER 30 MG TAB.ER.24H PO SCH (08:01)
[2018-06-09] MEDS: ACYCLOVIR 200 MG CAP PO SCH ×2 (08:01→20:41)
[2018-06-09] MEDS: ATORVASTATIN 80 MG TAB PO SCH (08:01)
[2018-06-09] MEDS: ASCORBIC ACID 500 MG TAB PO SCH (08:01)
[2018-06-09] MEDS: FOLIC ACID 1 MG TAB PO SCH (08:01)
[2018-06-09] MEDS: PANTOPRAZOLE 40 MG TABLET PO SCH ×2 (08:01→17:57)
[2018-06-09] MEDS: prednisoLONE ACETATE 1% OPHTH DROPS 5 ML BTL BOTH EYES SCH ×4 (08:02→21:28)
[2018-06-09] MEDS: SALT AND SODA MOUTHWASH 1,000 ML PO SCH ×4 (08:02→20:42)
[2018-06-09] MEDS: Vitamin B Complex [Vitamin B Complex] 1 CAP PO SCH (08:02)
[2018-06-09] MEDS: FLUCONAZOLE 100 MG TAB PO SCH (08:02)
[2018-06-09 09:39] LABS: Anisocytosis Moderate; MCH 31.5 pg (25.0-35.0); MCHC 33.8 g/dL (31.0-37.0); MCV 93.2 fL (80.0-100.0); Macrocytosis Slight; RDW 20.1 % (11.5-15.5)
[2018-06-09 09:41] LABS: WBC 0.3 k/uL (3.8-10.6)
[2018-06-09 09:48] LABS: HCT 19.6 % (39.0-53.0); HGB 6.6 gm/dL (13.0-17.5)
[2018-06-09 09:50] LABS: Albumin 3.3 g/dL (3.5-5.0); Calcium 8.4 mg/dL (8.4-10.2); Magnesium 2.2 mg/dL (1.6-2.3); Phosphorus 3.2 mg/dL (2.5-4.5); Potassium 4.1 mmol/L (3.5-5.1); Total Bilirubin 0.6 mg/dL (0.2-1.3); Total Protein 5.7 g/dL (6.3-8.2); Uric Acid 5.9 mg/dL (3.5-8.5)
[2018-06-09 09:51] LABS: Platelet Count 23 k/uL (150-450)
[2018-06-09 10:41] VITALS: BMI 23.8
[2018-06-09 11:40] LABS: Poikilocytosis (M) Present
[2018-06-09] MEDS: SODIUM CHLORIDE 0.9% 1,000 ML IV SCH (15:23)
[2018-06-09] MEDS: LEVOFLOXACIN 500 MG TAB PO SCH (15:24)
--- NOTE | 2018-06-09 17:10 | P.PN ---
Subjective Progress Note Date: 06/09/18 Principal diagnosis: pancytopenia - New Diagnosis Acute Leukemia Day Two Of HiDAC and tolerating well. No N/V/D/C Objective - Vital Signs Vital signs: Vital Signs Temp 97.9 F 06/09/18 15:53 Pulse 81 06/09/18 15:53 Resp 16 06/09/18 15:53 BP 121/58 06/09/18 15:53 Pulse Ox 98 06/09/18 15:53 Intake & Output 06/08/18 06/09/18 06/09/18 18:59 06:59 18:59 Intake Total 1150 590 600 Balance 1150 590 600 Weight 79.5 kg 79.5 kg Intake: Intake, IV Titration 1150 600 Amount Cytarabine/Pf 1,000 mg 500 Cytarabine/Pf 2,000 mg In Sodium Chloride 0.9% 500 ml 500 ml @ 190 mls/hr IV Q48H [facility] Rx#:[id number] Ondansetron 16 mg In 50 Sodium Chloride 0.9% 50 ml @ 232 mls/hr IVPB Q48H [facility] Rx#:[id number] Sodium Chloride 0.9% 1, 600 600 000 ml @ 75 mls/hr IV . [id number] [facility] Rx#:[id number] Oral 590 Other: Voiding Method Toilet Toilet Toilet Urinal # Voids 2 - Exam Gen: Alert and NAD HEad: NC NT Lungs CTA Bilateral HR Tachy Abd S/ND Ext No edema Neuro No sensory or motor deficits. - Labs CBC & Chem 7: 06/09/18 08:52 06/09/18 08:52 Labs: Abnormal Lab Results - Last 24 Hours (Table) 06/09/18 06/09/18 Range/Units 08:52 08:52 WBC 0.3 L* (3.8-10.6) k/uL RBC 2.10 L (4.30-5.90) m/uL Hgb 6.6 L* (13.0-17.5) gm/dL Hct 19.6 L* (39.0-53.0) % RDW 20.1 H (11.5-15.5) % Plt Count 23 L (150-450) k/uL Chloride 114 H (98-107) mmol/L Carbon Dioxide 17 L (22-30) mmol/L BUN 25 H (9-20) mg/dL Glucose 192 H (74-99) mg/dL AST 16 L (17-59) U/L Total Protein 5.7 L (6.3-8.2) g/dL Albumin 3.3 L (3.5-5.0) g/dL Microbiology - Last 24 Hours (Table) 06/04/18 15:15 Blood Culture - Preliminary Blood No Growth after 96 hours Assessment and Plan Plan: Assessment and Recommendations: 1. Pancytopenia: - Bone Marrow Results - AML - High Dose Cytarabine Induction therapy 06/08/18 - Monitor daily CBC, Transfusion support to continue with irradiated blood products - Questions answered, will transfer patient to Oncology floor for treatment - Monitor Daily CBC, CMP, MAg, Phos, Uric Acid On HiDAC - Pred FOrte Eye drops Hemoglobin 6.6 today transfuse one unit irradiated PRBC - Continue on induction therapy day 2 2. Hx: Lymphoma. - Will check repeat CBC< CMP, LDH, Uric acid, Coags in am Physician Attestation: I have completed the full history and physical and devloped the complete impression and plan, agree with above dictation, dictated as a scribe
[2018-06-10] MEDS: SODIUM CHLORIDE 0.9% 1,000 ML IV SCH ×3 (00:09→18:56)
--- NOTE | 2018-06-10 00:48 | PN ---
PROGRESS NOTE SUBJECTIVE: A 62-year-old white male with acute myelogenous leukemia exacerbation with severe pancytopenia. One unit of irradiated blood has been ordered for tonight. Chemotherapy will be started again tomorrow morning. Cardiovascular S1, S2. Lungs clear. Endocrine soft. Appears weak and fatigued. ASSESSMENT: 1. Acute myelogenous leukemia with acute flare. 2. History of lymphoma. 3. Pancytopenia. 4. Severe anemia. Blood transfusion will be done. Waiting on packed red blood cells. Check CBC, Chem panel in the morning. Continue chemotherapy in the morning. MMODL / IJN: [id number] /
[2018-06-10 08:20] LABS: Anisocytosis Slight; HCT 23.2 % (39.0-53.0); HGB 7.8 gm/dL (13.0-17.5); MCH 30.1 pg (25.0-35.0); MCHC 33.4 g/dL (31.0-37.0); MCV 90.1 fL (80.0-100.0); Mean Platelet Volume 7.1; RBC 2.58 m/uL (4.30-5.90); RDW 18.1 % (11.5-15.5)
[2018-06-10] MEDS: PANTOPRAZOLE 40 MG TABLET PO SCH ×2 (08:20→17:55)
[2018-06-10] MEDS: ASCORBIC ACID 500 MG TAB PO SCH (08:20)
[2018-06-10] MEDS: FAMOTIDINE 20 MG/2 ML VIAL IV SCH (08:20)
[2018-06-10] MEDS: FLUCONAZOLE 100 MG TAB PO SCH (08:20)
[2018-06-10] MEDS: ACYCLOVIR 200 MG CAP PO SCH ×2 (08:20→21:07)
[2018-06-10] MEDS: METOPROLOL TARTRATE 25 MG TAB PO SCH ×4 (08:20→21:07)
[2018-06-10] MEDS: ATORVASTATIN 80 MG TAB PO SCH (08:20)
[2018-06-10] MEDS: ISOSORBIDE MONONITRATE ER 30 MG TAB.ER.24H PO SCH (08:20)
[2018-06-10] MEDS: FOLIC ACID 1 MG TAB PO SCH (08:20)
[2018-06-10] MEDS: ONDANSETRON 16 MG in SODIUM CHLORIDE 0.9% 50 ML IVPB SCH (08:21)
[2018-06-10] MEDS: prednisoLONE ACETATE 1% OPHTH DROPS 5 ML BTL BOTH EYES SCH ×4 (08:21→21:07)
[2018-06-10] MEDS: DEXAMETHASONE SOD PHOSPHATE 10 MG/ML 1 ML VIAL IV SCH (08:21)
[2018-06-10] MEDS: SALT AND SODA MOUTHWASH 1,000 ML PO SCH ×4 (08:22→21:07)
[2018-06-10 08:28] LABS: Platelet Count 14 k/uL (150-450); WBC 0.2 k/uL (3.8-10.6)
[2018-06-10 08:40] LABS: Albumin 3.3 g/dL (3.5-5.0); Calcium 8.3 mg/dL (8.4-10.2); Magnesium 2.1 mg/dL (1.6-2.3); Phosphorus 3.1 mg/dL (2.5-4.5); Potassium 4.3 mmol/L (3.5-5.1); Total Bilirubin 0.6 mg/dL (0.2-1.3); Total Protein 5.8 g/dL (6.3-8.2); Uric Acid 4.7 mg/dL (3.5-8.5)
--- NOTE | 2018-06-10 08:59 | XR ---
EXAMINATION TYPE: XR chest 1V portable DATE OF EXAM: 06/10/2018 Comparison: 02/20/2017 Clinical History: 62-year-old male increased temperature, fever Findings: Heart normal size. Right anterior chest wall injection port with catheter tip at the mid to lower SVC . Aorta and pulmonary vasculature within normal limits. Mild hyperinflation. Some strandy atelectasis at the left base. No other consolidation or pleural effusion seen. Impression: COPD. No acute cardiopulmonary process.
[2018-06-10] MEDS: Vitamin B Complex [Vitamin B Complex] 1 CAP PO SCH (10:30)
[2018-06-10] MEDS: ALLOPURINOL 300 MG TAB PO SCH (10:31)
[2018-06-10] MEDS: CYTARABINE IV SCH ×2 (10:35→22:12)
[2018-06-10] MEDS: SODIUM CHLORIDE 0.9% IV SCH ×2 (10:35→22:12)
--- NOTE | 2018-06-10 14:06 | P.PN ---
Subjective Progress Note Date: 06/10/18 Principal diagnosis: pancytopenia - New Diagnosis Acute Leukemia Day Three Of HiDAC and tolerating well. No N/V/D/C temperature with mild increase (not technically febrile) this am Will mckeon culture, discussed with nursing and will have ID on board as he will likely benefit from coverage with length of neutropenia as inpatient and necessary need for chemotherapy induction. Objective - Vital Signs Vital signs: Vital Signs Temp 99.3 F 06/10/18 12:00 Pulse 74 06/10/18 12:00 Resp 17 06/10/18 12:00 BP 113/61 06/10/18 12:00 Pulse Ox 95 06/10/18 12:00 Intake & Output 06/09/18 06/10/18 06/10/18 18:59 06:59 18:59 Intake Total 600 2490 Balance 600 2490 Weight 79.5 kg Intake: Intake, IV Titration 600 650 Amount Sodium Chloride 0.9% 1, 600 650 000 ml @ 75 mls/hr IV . [id number] [facility] Rx#:[id number] Oral 1530 Blood Product 310 Rc Irr As1 Unit 310 [id number] Other: Voiding Method Toilet Toilet # Voids 2 - Exam Gen: Alert and NAD HEad: NC NT Lungs CTA Bilateral HR Tachy Abd S/ND Ext No edema Neuro No sensory or motor deficits. - Labs CBC & Chem 7: 06/10/18 08:05 06/10/18 08:05 Labs: Abnormal Lab Results - Last 24 Hours (Table) 06/09/18 06/10/18 06/10/18 Range/Units 13:05 08:05 08:05 WBC 0.2 L* (3.8-10.6) k/uL RBC 2.58 L (4.30-5.90) m/uL Hgb 7.8 L (13.0-17.5) gm/dL Hct 23.2 L (39.0-53.0) % RDW 18.1 H (11.5-15.5) % Plt Count 14 L* (150-450) k/uL Chloride 113 H (98-107) mmol/L BUN 24 H (9-20) mg/dL Calcium 8.3 L (8.4-10.2) mg/dL Total Protein 5.8 L (6.3-8.2) g/dL Albumin 3.3 L (3.5-5.0) g/dL Crossmatch See Detail Microbiology - Last 24 Hours (Table) 06/04/18 15:15 Blood Culture - Preliminary Blood No Growth after 120 hours Assessment and Plan Plan: Assessment and Recommendations: 1. Pancytopenia: - Bone Marrow Results - AML - High Dose Cytarabine Induction therapy 06/08/18 - Monitor daily CBC, Transfusion support to continue with irradiated blood products - Questions answered, will transfer patient to Oncology floor for treatment - Monitor Daily CBC, CMP, MAg, Phos, Uric Acid On HiDAC - Pred FOrte Eye drops Hemoglobin 7.7 today transfuse one unit irradiated PRBC - Continue on induction therapy day 3 2. Hx: Lymphoma. - Will check repeat CBC< CMP, LDH, Uric acid, Coags in am 3. Increased Temperatures today: T Max 100.1 - Ok to continue on chemotherapy - Mckeon culture and ID asked to join for close following - Continue prophylaxis. Physician Attestation: I have completed the full history and physical and devloped the complete impression and plan, agree with above dictation, dictated as a scribe
[2018-06-10] MEDS: LEVOFLOXACIN 500 MG TAB PO SCH (15:15)
[2018-06-10 20:08] LABS: Appearance,Urine Clear (Clear); Bilirubin,Urine Negative (Negative); Blood,Urine Negative (Negative); Color,Urine Light Yellow; Glucose,Urine (UA) Negative (Negative); Ketones,Urine Negative (Negative); Leukocyte Esterase,Urine Negative (Negative); Nitrite,Urine Negative (Negative); Protein,Urine Negative (Negative); Urobilinogen,Urine <2.0 mg/dL (<2.0)
--- NOTE | 2018-06-10 22:41 | P.CONS ---
History of Present Illness - Reason for Consult Consult date: 06/10/18 - Chief Complaint Weakness - History of Present Illness 62-year-old male that has an extensive past medical history regarding his diagnosis of CLL in December 2000. History with chemotherapy and did well except for a bout of ITP that had an excellent response to prednisone. It was not until May 2014 with the patient again had difficulties. At that time he had developed pancytopenia initial workup was thought to show evidence of pneumonia and he had a response to antibiotic therapy. 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 He constantly was treated with R-CHOP with some improvement. Patient however then by October 2016 had progression of disease and chemotherapy was altered to the R-ICE protocol. The patient then developed an acute myocardial event and there were difficulties. He is referred to the bone marrow transplant service and eventually underwent cardiac catheterization and stenting. The patient declined bone marrow transplantation. Patient now presents to Hospital feeling poorly without evidence of pancytopenia and bone marrow aspiration is been performed. 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 Some low-grade fevers have been noted and infectious diseases input was requested. The patient is feeling relatively well today. He is denying chills or rigors. Denies any acute difficulties with the current chemotherapy. No ill contacts in the home setting. No other acute changes, he's had no hematemesis melena or hematochezia and no skin rashes have occurred either. Review of Systems Patient feels poorly in that he is quite weak with fatigue but no chills or rigors HEENT:Denies headache or acute visual change. Denies sinus or mouth discomforts. Denies neck stiffness or pain. Denies oral cavity pain but has very poor dentition no dysphagia at this time Lungs: Remains a tobacco smoker, baseline shortness of breath but no cough or sputum production or hemoptysis of occurred Cardiovascular: Shortness of breath is at baseline, denies chest pain or chest wall pain. Does have fatigue, dyspnea on exertion but no syncope Gastrointestinal:Denies nausea, vomiting, diarrhea, constipation, hematemesis, melena, hematochezia. No no significant change of bowel habit noticed. Musculoskeletal: denies significant myalgias or arthralgias. No new joint swelling. Denies new back pain. Skin: No difficulties with open lesions easy bruising is noted Neuro: Denies headache or visual change. Denies any new onset weakness or difficulty with ambulation. Denies falls or seizures. Psychiatric: Somewhat anxious about the progression of his disease Endocrine: Profound fatigue and does have weight loss Past Medical History Past Medical History: Cancer, Myocardial Infarction ([place]), Pneumonia Additional Past Medical History / Comment(s): 2000 diagnosed with CLL treated with chemo successfully, 08/2014 R side back mass-diffuse large B cell lymphoma treated with chemo, 11/2016 recurrent R back mass-diffuse large B cell lymphoma with current chemo, pancytopenia, ITP, anemia, pneumonia with sepsis, 02/20/17 NSTEMI with heart cath-tx medically. Last Myocardial Infarction Date:: 02/20/17 History of Any Multi-Drug Resistant Organisms: None Reported Past Surgical History: Heart Catheterization Additional Past Surgical History / Comment(s): 02/20/17 cardiac cath, 2000 BMA, R upper back mass-needle bxs, colonoscopy-normal, power port. Past Anesthesia/Blood Transfusion Reactions: No Reported Reaction Additional Past Anesthesia/Blood Transfusion Reaction / Comm: Pt has received blood in the past without reaction. 02/20/17 pt had chest pain/SOB (NSTEMI) 1 day post transfusion. Past Psychological History: No Psychological Hx Reported Additional Psychological History / Comment(s): Patient's adult daughter lives with him. There are no animals in the home. He is an ongoing tobacco smoker of at least one pack per day. Alcohol only rarely-many years ago he states he d rank heavier. Denies significant injection drug use or other recreational drug use at this time. No experience. No recent travels. No international travel. 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 He does not have experience. He does not have extensive international travel. His never been to the [facility]. No animal exposures in the home at this time. Smoking Status: Former smoker Past Alcohol Use History: Occasional Additional Past Alcohol Use History / Comment(s): Pt started smoking in 1969 and was a ppd smoker. He states he is cutting back on how much he smokes and knows he needs to quit. He drinks alcohol rarely for many years. Past Drug Use History: Unable to Obtain - Past Family History Father Additional Family Medical History / Comment(s): Father was an alcoholic. He co mmitted suicide. Mother Family Medical History: Cancer Additional Family Medical History / Comment(s): Mother had Breast Cancer 25 yrs ago. She is 85yrs old. Medications and Allergies Home Medications and Allergies Comment(s): Current Medications Acyclovir (Zovirax) 400 mg PO BID [facility] Last Admin: 06/10/18 21:07 Dose: 400 mg Documented by: Allopurinol (Zyloprim) 300 mg PO DAILY [facility] Last Admin: 06/10/18 10:31 Dose: 300 mg Documented by: Ascorbic Acid (Vitamin C) 500 mg PO DAILY [facility] Last Admin: 06/10/18 08:20 Dose: 500 mg Documented by: Atorvastatin Calcium (Lipitor) 80 mg PO DAILY [facility] Last Admin: 06/10/18 08:20 Dose: 80 mg Documented by: Dexamethasone Sodium Phosphate (Decadron) 10 mg IV Q48H [facility] Stop: 06/12/18 09:01 Last Admin: 06/10/18 08:21 Dose: 10 mg Documented by: Famotidine (Pepcid) 20 mg IV Q48H [facility] Stop: 06/12/18 09:01 Last Admin: 06/10/18 08:20 Dose: 20 mg Documented by: Fluconazole (Diflucan) 100 mg PO DAILY [facility] Last Admin: 06/10/18 08:20 Dose: 100 mg Documented by: Folic Acid (Folic Acid) 1 mg PO DAILY [facility] Last Admin: 06/10/18 08:20 Dose: 1 mg Documented by: Ondansetron HCl 16 mg/ Sodium (Chloride) 58 mls @ 232 mls/hr IVPB Q48H [facility] Stop: 06/12/18 09:14 Last Admin: 06/10/18 08:21 Dose: 232 mls/hr Documented by: Cytarabine 1,000 mg/Cytarabine 2,000 mg/ Sodium Chloride 570 mls @ 190 mls/hr IV Q48H [facility] Stop: 06/13/18 00:59 Last Admin: 06/10/18 22:12 Dose: 190 mls/hr Documented by: Cytarabine 1,000 mg/Cytarabine 2,000 mg/ Sodium Chloride 570 mls @ 190 mls/hr IV Q48H [facility] Stop: 06/12/18 12:59 Last Admin: 06/10/18 10:35 Dose: 190 mls/hr Documented by: Sodium Chloride (Saline 0.9%) 1,000 mls @ 75 mls/hr IV .[id number] [facility] Last Admin: 06/10/18 18:56 Dose: 75 mls/hr Documented by: Isosorbide Mononitrate (Imdur) 30 mg PO DAILY [facility] Last Admin: 06/10/18 08:20 Dose: 30 mg Documented by: Levofloxacin (Levaquin) 500 mg PO Q24H [facility] Last Admin: 06/10/18 15:15 Dose: 500 mg Documented by: Metoprolol Tartrate (Lopressor) 25 mg PO QID [facility] Last Admin: 06/10/18 21:07 Dose: 25 mg Documented by: Ondansetron HCl (Zofran) 4 mg IVP Q6H PRN PRN Reason: Nausea Pantoprazole Sodium (Protonix) 40 mg PO AC-BID [facility] Last Admin: 06/10/18 17:55 Dose: 40 mg Documented by: Prednisolone Acetate (Pred Forte 1%) 1 drops BOTH EYES QID [facility] Last Admin: 06/10/18 21:07 Dose: 1 drops Documented by: Sodium Bicarbonate () 5 ml PO ACHS [facility] Last Admin: 06/10/18 21:07 Dose: 5 ml Documented by: Home Medications Medication Instructions Recorded Confirmed Type Vitamin B Complex 1 cap PO DAILY 12/11/16 06/02/18 History Folic Acid 0.4 mg PO DAILY 02/18/17 06/02/18 History Aspirin EC [Ecotrin Low Dose] 81 mg PO DAILY 03/17/17 06/02/18 History Isosorbide Mononitrate ER [Imdur] 30 mg PO DAILY #30 tab 04/16/17 06/02/18 Rx Ascorbic Acid [Vitamin C] 500 mg PO DAILY 06/02/18 06/02/18 History Atorvastatin [Lipitor] 80 mg PO DAILY 06/02/18 06/02/18 History Clopidogrel [Plavix] 75 mg PO DAILY 06/02/18 06/02/18 History Metoprolol Tartrate [Lopressor] 25 mg PO QID 06/02/18 06/02/18 History Allergies Allergy/AdvReac Type Severity Reaction Status Date / Time No Known Allergies Allergy Verified 06/02/18 16:15 Physical Exam Vitals: Vital Signs Temp Pulse Pulse Pulse Pulse Resp BP 06/10/18 22:08 98.3 F 71 16 03/21/19 19:45 98.3 F 82 16 06/10/18 16:00 98.5 F 74 80 17 06/10/18 12:00 99.3 F 74 74 17 06/10/18 10:14 99.7 F H 75 75 16 06/10/18 08:00 100.2 F H 74 97 17 06/10/18 07:56 100.2 F H 75 16 06/10/18 05:18 99.3 F 77 16 06/10/18 03:26 98.6 F 69 16 115/57 06/10/18 03:24 98.6 F 69 16 115/57 06/10/18 01:06 98.3 F 73 16 113/56 06/10/18 00:36 98.1 F 78 16 122/54 06/10/18 00:26 98.3 F 84 16 113/61 BP Pulse Ox 06/10/18 22:08 123/59 95 06/10/18 19:45 115/65 98 06/10/18 16:00 117/60 96 06/10/18 12:00 113/61 95 06/10/18 10:14 112/57 97 06/10/18 08:00 108/58 95 06/10/18 07:56 108/58 95 06/10/18 05:18 104/62 97 06/10/18 03:26 97 06/10/18 03:24 06/10/18 01:06 97 06/10/18 00:36 97 06/10/18 00:26 98 Intake and Output 06/10/18 06/10/18 06/10/18 06:59 14:59 22:59 Intake Total 1550 1770 240 Output Total 400 Balance 1550 1770 -160 Intake: Intake, IV Titration 650 1150 Amount Cytarabine/Pf 1,000 mg 500 Cytarabine/Pf 2,000 mg In Sodium Chloride 0.9% 500 ml 500 ml @ 190 mls/hr IV Q48H [facility] Rx#:[id number] Ondansetron 16 mg In 50 Sodium Chloride 0.9% 50 ml @ 232 mls/hr IVPB Q48H [facility] Rx#:[id number] Sodium Chloride 0.9% 1, 650 600 000 ml @ 75 mls/hr IV . [id number] [facility] Rx#:[id number] Oral 590 620 240 Blood Product 310 Rc Irr As1 Unit 310 [id number] Output: Urine 400 Other: Voiding Method Toilet Toilet Toilet # Voids 2 3 2 62-year-old male who is comfortable at this point in time. His of a thin build HEENT: Anicteric conjunctiva are pale but moist, nasal mucosa grossly intact without bleeding, there is no thrush dentition is in very poor repair but no open ulcers are seen in the oral cavity Neck: The neck is supple without significant lymphadenopathy or thyromegaly. Lungs: Symmetrical air entry is noted with expiratory wheezes the lung tristan but no perri bronchial sounds are heard Heart: Regular rate and rhythm with an audible S1-S2, no S3 no S4. There is no significant murmur click or rub, PMI was nondisplaced. Abdomen: Positive bowel sounds soft and nontender without palpable masses or organomegaly. There was no guarding or rebound. Extremities: The upper extremities have excellent pulses they are symmetric, no significant petechiae or telangiectasia. No splinter hemorrhages were noted. Worshipers have trace pedal edema but no open ulcerations are seen. There are a few scattered ecchymotic areas but nothing is open or draining at this time Neuro: Awake alert oriented to person place and time. There are no acute new gross focal sensory motor deficits. Results CBC & Chem 7: 06/10/18 08:05 06/10/18 08:05 Labs: Abnormal Lab Results - Last 24 Hours (Table) 06/09/18 06/10/18 06/10/18 Range/Units 13:05 08:05 08:05 WBC 0.2 L* (3.8-10.6) k/uL RBC 2.58 L (4.30-5.90) m/uL Hgb 7.8 L (13.0-17.5) gm/dL Hct 23.2 L (39.0-53.0) % RDW 18.1 H (11.5-15.5) % Plt Count 14 L* (150-450) k/uL Chloride 113 H (98-107) mmol/L BUN 24 H (9-20) mg/dL Calcium 8.3 L (8.4-10.2) mg/dL Total Protein 5.8 L (6.3-8.2) g/dL Albumin 3.3 L (3.5-5.0) g/dL Crossmatch See Detail Microbiology - Last 24 Hours (Table) 06/04/18 15:15 Blood Culture - Final Blood No Growth after 144 hours Laboratory Results WBC 0.2 k/uL (3.8-10.6) L* 06/10/18 08:05 RBC 2.58 m/uL (4.30-5.90) L 06/10/18 08:05 Hgb 7.8 gm/dL (13.0-17.5) L 06/10/18 08:05 Hct 23.2 % (39.0-53.0) L 06/10/18 08:05 MCV 90.1 fL (80.0-100.0) 06/10/18 08:05 MCH 30.1 pg (25.0-35.0) 06/10/18 08:05 MCHC 33.4 g/dL (31.0-37.0) 06/10/18 08:05 RDW 18.1 % (11.5-15.5) H 06/10/18 08:05 Plt Count 14 k/uL (150-450) L* 06/10/18 08:05 Neutrophils % Not Reportable 06/09/18 08:52 Lymphocytes % Not Reportable 06/09/18 08:52 Monocytes % Not Reportable 06/09/18 08:52 Eosinophils % Not Reportable 06/09/18 08:52 Basophils % Not Reportable 06/09/18 08:52 Neutrophils # Not Reportable 06/09/18 08:52 Lymphocytes # Not Reportable 06/09/18 08:52 Monocytes # Not Reportable 06/09/18 08:52 Eosinophils # Not Reportable 06/09/18 08:52 Basophils # Not Reportable 06/09/18 08:52 Differential Comment 06/10/18 08:05 Manual Slide Review Performed 06/10/18 08:05 Poikilocytosis Slight 06/08/18 08:09 Poikilocytosis (manual Present 06/09/18 08:52 Anisocytosis Slight 06/10/18 08:05 Macrocytosis Slight 06/09/18 08:52 PT 10.7 sec (9.0-12.0) 06/07/18 15:01 INR 1.0 (<1.2) 06/07/18 15:01 APTT 25.6 sec (22.0-30.0) 06/07/18 15:01 Sodium 141 mmol/L (137-145) 06/10/18 08:05 Potassium 4.3 mmol/L (3.5-5.1) 06/10/18 08:05 Chloride 113 mmol/L (98-107) H 06/10/18 08:05 Carbon Dioxide 22 mmol/L (22-30) 06/10/18 08:05 Anion Gap 6 mmol/L 06/10/18 08:05 BUN 24 mg/dL (9-20) H 06/10/18 08:05 Creatinine 1.09 mg/dL (0.66-1.25) 06/10/18 08:05 Est GFR (CKD-EPI)AfAm 83 (>60 ml/min/1.73 sqM) 06/10/18 08:05 Est GFR (CKD-EPI)NonAf 71 (>60 ml/min/1.73 sqM) 06/10/18 08:05 Glucose 89 mg/dL (74-99) 06/10/18 08:05 Uric Acid 4.7 mg/dL (3.5-8.5) 06/10/18 08:05 Calcium 8.3 mg/dL (8.4-10.2) L 06/10/18 08:05 Phosphorus 3.1 mg/dL (2.5-4.5) 06/10/18 08:05 Magnesium 2.1 mg/dL (1.6-2.3) 06/10/18 08:05 Total Bilirubin 0.6 mg/dL (0.2-1.3) 06/10/18 08:05 AST 17 U/L (17-59) 06/10/18 08:05 ALT 33 U/L (21-72) 06/10/18 08:05 Alkaline Phosphatase 81 U/L (38-126) 06/10/18 08:05 Lactate Dehydrogenase 507 U/L (313-618) 06/04/18 14:56 Troponin I <0.012 ng/mL (0.000-0.034) 06/02/18 15:00 Total Protein 5.8 g/dL (6.3-8.2) L 06/10/18 08:05 Albumin 3.3 g/dL (3.5-5.0) L 06/10/18 08:05 Urine Color Light Yellow 06/10/18 16:00 Urine Appearance Clear (Clear) 06/10/18 16:00 Urine pH 6.0 (5.0-8.0) 06/10/18 16:00 Ur Specific [place] 1.010 (1.001-1.035) 06/10/18 16:00 Urine Protein Negative (Negative) 06/10/18 16:00 Urine Glucose (UA) Negative (Negative) 06/10/18 16:00 Urine Ketones Negative (Negative) 06/10/18 16:00 Urine Blood Negative (Negative) 06/10/18 16:00 Urine Nitrite Negative (Negative) 06/10/18 16:00 Urine Bilirubin Negative (Negative) 06/10/18 16:00 Urine Urobilinogen <2.0 mg/dL (<2.0) 06/10/18 16:00 Ur Leukocyte Esterase Negative (Negative) 06/10/18 16:00 Stool Occult Blood Negative (Negative) 06/02/18 15:00 IgG 525.0 mg/dL (700.0-1600.0) L 06/04/18 14:56 IgA 261.0 mg/dL (60.0-350.0) 06/04/18 14:56 IgM 74.8 mg/dL (40.0-280.0) 06/04/18 14:56 Flow Results See Pathology Report 06/04/18 14:45 Blood Type A Negative 06/09/18 13:05 Blood Type Recheck No 06/09/18 13:05 Antibody Screen NEGATIVE 06/09/18 13:05 Crossmatch See Detail 06/09/18 13:05 Transfuse Platelets 06/05/18 06/04/18 15:00 Spec Expiration Date 06/12/2018230406/09/18 13:05 Microbiology 06/04/18 15:15 Blood Blood Culture - Final No Growth after 144 hours Assessment and Plan (1) Acute myelogenous leukemia Narrative/Plan: 62-year-old male but has an extensive past medical history who is now developed pancytopenia and bone marrow aspiration showed conversion to AML. He has now been started on induction chemotherapy, with no plans of evaluation for bone marrow transplant. The patient is receiving standard antimicrobial prophylaxis with acyclovir, fluconazole, levofloxacin. Some low-grade temperatures have been noted but the patient is relatively asymptomatic. He will be monitored for any further worsening of his fever or development of any symptoms. He will be a low threshold for broadening antibiotic therapy. He does have very poor oral hygiene and dentition and will be at significant risk of mucositis and invasion from the oral cavity. Salt and soda has already been requested to improve his oral hygiene. He has had blood cultures that are negative. No new infiltrates have been noted. Patient's temperatures to be monitored and cultures and broadening of antibiotic therapy as indicated. He has had extensive exposure to antimicrobials in the past, will quickly alter his antifungal therapy if thrush or fever occurs also. Current Visit: Yes Status: Acute Code(s): C92.00 - ACUTE MYELOBLASTIC LEUKEMIA, NOT HAVING ACHIEVED REMISSION SNOMED Code(s): 42676160 (2) COPD (chronic obstructive pulmonary disease) Current Visit: Yes Status: Acute Code(s): J44.9 - CHRONIC OBSTRUCTIVE PULMONARY DISEASE, UNSPECIFIED SNOMED Code(s): 98352132 (3) Pancytopenia Current Visit: Yes Status: Acute Code(s): D61.818 - OTHER PANCYTOPENIA SNOMED Code(s): 304410102
--- NOTE | 2018-06-11 06:01 | PN ---
PROGRESS NOTE SUBJECTIVE: A 62-year-old white male with anemia, history of lymphoma, remains back on chemotherapy. Hemoglobin is up to 7.8 today CARDIOVASCULAR: S1, S2. LUNGS: Scattered wheeze. HEMATOLOGY: Negative Homans. PSYCH: Fair mood and affect. Vital signs are reviewed. ASSESSMENT: 1. Acute myelogenous leukemia. 2. Fever, unclear etiology. Sepsis workup in place. Please see further orders. Await Dr. Corrales' recommendations. MMODL / IJN: [id number] /
[2018-06-11 08:09] LABS: Anisocytosis Slight; MCH 30.2 pg (25.0-35.0); MCHC 33.4 g/dL (31.0-37.0); MCV 90.7 fL (80.0-100.0); Mean Platelet Volume 9.1; RBC 2.31 m/uL (4.30-5.90); RDW 17.7 % (11.5-15.5)
[2018-06-11 08:19] LABS: Platelet Count 12 k/uL (150-450); WBC 0.1 k/uL (3.8-10.6)
[2018-06-11 08:51] LABS: ALT 33 U/L (21-72); AST 13 U/L (17-59); Alkaline Phosphatase 74 U/L (38-126); Anion Gap 7 mmol/L; Blood Urea Nitrogen 22 mg/dL (9-20); Calcium 8.3 mg/dL (8.4-10.2); Carbon Dioxide 20 mmol/L (22-30); Chloride 115 mmol/L (98-107); Glucose 116 mg/dL (74-99); Magnesium 2.2 mg/dL (1.6-2.3); Phosphorus 3.5 mg/dL (2.5-4.5); Sodium 142 mmol/L (137-145); Total Bilirubin 0.7 mg/dL (0.2-1.3); Total Protein 5.3 g/dL (6.3-8.2); Uric Acid 3.9 mg/dL (3.5-8.5)
[2018-06-11] MEDS: ISOSORBIDE MONONITRATE ER 30 MG TAB.ER.24H PO SCH (08:56)
[2018-06-11] MEDS: ALLOPURINOL 300 MG TAB PO SCH (08:56)
[2018-06-11] MEDS: METOPROLOL TARTRATE 25 MG TAB PO SCH ×4 (08:56→19:57)
[2018-06-11] MEDS: ATORVASTATIN 80 MG TAB PO SCH (08:56)
[2018-06-11] MEDS: ACYCLOVIR 200 MG CAP PO SCH ×2 (08:56→19:57)
[2018-06-11] MEDS: PANTOPRAZOLE 40 MG TABLET PO SCH ×2 (08:56→17:24)
[2018-06-11] MEDS: SALT AND SODA MOUTHWASH 1,000 ML PO SCH ×4 (08:56→19:58)
[2018-06-11] MEDS: prednisoLONE ACETATE 1% OPHTH DROPS 5 ML BTL BOTH EYES SCH ×4 (08:58→19:58)
[2018-06-11 09:26] LABS: Poikilocytosis (M) Present
[2018-06-11] MEDS: FOLIC ACID 1 MG TAB PO SCH (09:41)
[2018-06-11] MEDS: ASCORBIC ACID 500 MG TAB PO SCH (09:41)
[2018-06-11] MEDS: FLUCONAZOLE 100 MG TAB PO SCH (09:41)
--- NOTE | 2018-06-11 14:47 | P.PN ---
Subjective Progress Note Date: 06/11/18 62-year-old male that has an extensive past medical history regarding his diagnosis of CLL in December 2000. History with chemotherapy and did well except for a bout of ITP that had an excellent response to prednisone. It was not until May 2014 with the patient again had difficulties. At that time he had developed pancytopenia initial workup was thought to show evidence of pneumonia and he had a response to antibiotic therapy. 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 He constantly was treated with R-CHOP with some improvement. Patient however then by October 2016 had progression of disease and chemotherapy was altered to the R-ICE protocol. The patient then developed an acute myocardial event and there were difficulties. He is referred to the bone marrow transplant service and eventually underwent cardiac catheterization and stenting. The patient declined bone marrow transplantation. Patient now presents to Hospital feeling poorly without evidence of pancytopenia and bone marrow aspiration is been performed. 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 Some low-grade fevers have been noted and infectious diseases input was requested. The patient is feeling relatively well today. He is denying chills or rigors. Denies any acute difficulties with the current chemotherapy. No ill contacts in the home setting. No other acute changes, he's had no hematemesis melena or hematochezia and no skin rashes have occurred either. 06/11/2018 patient is now had further improvement the day today. He is having no fevers or chills. He has been tolerating his chemotherapy well. Appetite is adequate without nausea or emesis or diarrhea. No new skin rashes and does not feel worse. Objective - Vital Signs Vital signs: Vital Signs Temp 96.8 F L 06/11/18 12:10 Pulse 79 06/11/18 12:10 Resp 20 06/11/18 12:10 BP 128/61 06/11/18 12:10 Pulse Ox 98 06/11/18 12:10 Intake & Output 06/10/18 06/11/18 06/11/18 18:59 06:59 18:59 Intake Total 2009 1600 360 Output Total 400 Balance 1610 1600 360 Intake: Intake, IV Titration 1150 1150 Amount Cytarabine/Pf 1,000 mg 500 Cytarabine/Pf 2,000 mg In Sodium Chloride 0.9% 500 ml 500 ml @ 190 mls/hr IV Q48H [facility] Rx#:[id number] Cytarabine/Pf 1,000 mg 500 Cytarabine/Pf 2,000 mg In Sodium Chloride 0.9% 500 ml 500 ml @ 190 mls/hr IV Q48H [facility] Rx#:[id number] Ondansetron 16 mg In 50 Sodium Chloride 0.9% 50 ml @ 232 mls/hr IVPB Q48H [facility] Rx#:[id number] Sodium Chloride 0.9% 1, 600 650 000 ml @ 75 mls/hr IV . [id number] [facility] Rx#:[id number] Oral 860 450 360 Output: Urine 400 Other: Voiding Method Toilet Toilet Toilet # Voids 3 1 # Bowel Movements 1 - Exam 62-year-old male who is comfortable at this point in time. His of a thin build HEENT: Anicteric conjunctiva are pale but moist, nasal mucosa grossly intact without bleeding, there is no thrush dentition is in very poor repair but no open ulcers are seen in the oral cavity Neck: The neck is supple without significant lymphadenopathy or thyromegaly. Lungs: Symmetrical air entry is noted with expiratory wheezes the lung tristan but no perri bronchial sounds are heard Heart: Regular rate and rhythm with an audible S1-S2, no S3 no S4. There is no significant murmur click or rub, PMI was nondisplaced. Abdomen: Positive bowel sounds soft and nontender without palpable masses or organomegaly. There was no guarding or rebound. Extremities: The upper extremities have excellent pulses they are symmetric, no significant petechiae or telangiectasia. No splinter hemorrhages were noted. Worshipers have trace pedal edema but no open ulcerations are seen. There are a few scattered ecchymotic areas but nothing is open or draining at this time Neuro: Awake alert oriented to person place and time. There are no acute new gross focal sensory motor deficits. - Labs CBC & Chem 7: 06/11/18 07:37 06/11/18 07:37 Labs: Abnormal Lab Results - Last 24 Hours (Table) 06/11/18 06/11/18 Range/Units 07:37 07:37 WBC 0.1 L* (3.8-10.6) k/uL RBC 2.31 L (4.30-5.90) m/uL Hgb 7.0 L (13.0-17.5) gm/dL Hct 21.0 L (39.0-53.0) % RDW 17.7 H (11.5-15.5) % Plt Count 12 L* (150-450) k/uL Chloride 115 H (98-107) mmol/L Carbon Dioxide 20 L (22-30) mmol/L BUN 22 H (9-20) mg/dL Glucose 116 H (74-99) mg/dL Calcium 8.3 L (8.4-10.2) mg/dL AST 13 L (17-59) U/L Total Protein 5.3 L (6.3-8.2) g/dL Albumin 3.0 L (3.5-5.0) g/dL Microbiology - Last 24 Hours (Table) 06/10/18 09:39 Blood Culture - Preliminary Blood No Growth after 24 hours 06/04/18 15:15 Blood Culture - Final Blood No Growth after 144 hours Laboratory Results WBC 0.1 k/uL (3.8-10.6) L* 06/11/18 07:37 RBC 2.31 m/uL (4.30-5.90) L 06/11/18 07:37 Hgb 7.0 gm/dL (13.0-17.5) L 06/11/18 07:37 Hct 21.0 % (39.0-53.0) L 06/11/18 07:37 MCV 90.7 fL (80.0-100.0) 06/11/18 07:37 MCH 30.2 pg (25.0-35.0) 06/11/18 07:37 MCHC 33.4 g/dL (31.0-37.0) 06/11/18 07:37 RDW 17.7 % (11.5-15.5) H 06/11/18 07:37 Plt Count 12 k/uL (150-450) L* 06/11/18 07:37 Neutrophils % Not Reportable 06/09/18 08:52 Lymphocytes % Not Reportable 06/09/18 08:52 Monocytes % Not Reportable 06/09/18 08:52 Eosinophils % Not Reportable 06/09/18 08:52 Basophils % Not Reportable 06/09/18 08:52 Neutrophils # Not Reportable 06/09/18 08:52 Lymphocytes # Not Reportable 06/09/18 08:52 Monocytes # Not Reportable 06/09/18 08:52 Eosinophils # Not Reportable 06/09/18 08:52 Basophils # Not Reportable 06/09/18 08:52 Differential Comment 06/11/18 07:37 Manual Slide Review Performed 06/11/18 07:37 Poikilocytosis Slight 06/08/18 08:09 Poikilocytosis (manual Present 06/11/18 07:37 Anisocytosis Slight 06/11/18 07:37 Macrocytosis Slight 06/09/18 08:52 PT 10.7 sec (9.0-12.0) 06/07/18 15:01 INR 1.0 (<1.2) 06/07/18 15:01 APTT 25.6 sec (22.0-30.0) 06/07/18 15:01 Sodium 142 mmol/L (137-145) 06/11/18 07:37 Potassium 4.0 mmol/L (3.5-5.1) 06/11/18 07:37 Chloride 115 mmol/L (98-107) H 06/11/18 07:37 Carbon Dioxide 20 mmol/L (22-30) L 06/11/18 07:37 Anion Gap 7 mmol/L 06/11/18 07:37 BUN 22 mg/dL (9-20) H 06/11/18 07:37 Creatinine 0.98 mg/dL (0.66-1.25) 06/11/18 07:37 Est GFR (CKD-EPI)AfAm >90 (>60 ml/min/1.73 sqM) 06/11/18 07:37 Est GFR (CKD-EPI)NonAf 82 (>60 ml/min/1.73 sqM) 06/11/18 07:37 Glucose 116 mg/dL (74-99) H 06/11/18 07:37 Uric Acid 3.9 mg/dL (3.5-8.5) 06/11/18 07:37 Calcium 8.3 mg/dL (8.4-10.2) L 06/11/18 07:37 Phosphorus 3.5 mg/dL (2.5-4.5) 06/11/18 07:37 Magnesium 2.2 mg/dL (1.6-2.3) 06/11/18 07:37 Total Bilirubin 0.7 mg/dL (0.2-1.3) 06/11/18 07:37 AST 13 U/L (17-59) L 06/11/18 07:37 ALT 33 U/L (21-72) 06/11/18 07:37 Alkaline Phosphatase 74 U/L (38-126) 06/11/18 07:37 Lactate Dehydrogenase 507 U/L (313-618) 06/04/18 14:56 Troponin I <0.012 ng/mL (0.000-0.034) 06/02/18 15:00 Total Protein 5.3 g/dL (6.3-8.2) L 06/11/18 07:37 Albumin 3.0 g/dL (3.5-5.0) L 06/11/18 07:37 Urine Color Light Yellow 06/10/18 16:00 Urine Appearance Clear (Clear) 06/10/18 16:00 Urine pH 6.0 (5.0-8.0) 06/10/18 16:00 Ur Specific [place] 1.010 (1.001-1.035) 06/10/18 16:00 Urine Protein Negative (Negative) 06/10/18 16:00 Urine Glucose (UA) Negative (Negative) 06/10/18 16:00 Urine Ketones Negative (Negative) 06/10/18 16:00 Urine Blood Negative (Negative) 06/10/18 16:00 Urine Nitrite Negative (Negative) 06/10/18 16:00 Urine Bilirubin Negative (Negative) 06/10/18 16:00 Urine Urobilinogen <2.0 mg/dL (<2.0) 06/10/18 16:00 Ur Leukocyte Esterase Negative (Negative) 06/10/18 16:00 Stool Occult Blood Negative (Negative) 06/02/18 15:00 IgG 525.0 mg/dL (700.0-1600.0) L 06/04/18 14:56 IgA 261.0 mg/dL (60.0-350.0) 06/04/18 14:56 IgM 74.8 mg/dL (40.0-280.0) 06/04/18 14:56 Flow Results See Pathology Report 06/04/18 14:45 Blood Type A Negative 06/09/18 13:05 Blood Type Recheck No 06/09/18 13:05 Antibody Screen NEGATIVE 06/09/18 13:05 Crossmatch See Detail 06/09/18 13:05 Transfuse Platelets 06/05/18 06/04/18 15:00 Spec Expiration Date 06/12/2018 - 23006/09/18 13:05 Microbiology 06/10/18 09:39 Blood Blood Culture - Preliminary No Growth after 24 hours 06/04/18 15:15 Blood Blood Culture - Final No Growth after 144 hours Assessment and Plan (1) Acute myelogenous leukemia Narrative/Plan: 62-year-old male but has an extensive past medical history who is now developed pancytopenia and bone marrow aspiration showed conversion to AML. He has now been started on induction chemotherapy, with no plans of evaluation for bone marrow transplant. The patient is receiving standard antimicrobial prophylaxis with acyclovir, fluconazole, levofloxacin. Some low-grade temperatures have been noted but the patient is relatively asymptomatic. He will be monitored for any further worsening of his fever or development of any symptoms. He will be a low threshold for broadening antibiotic therapy. He does have very poor oral hygiene and dentition and will be at significant risk of mucositis and invasion from the oral cavity. Salt and soda has already been requested to improve his oral hygiene. He has had blood cultures that are negative. No new infiltrates have been noted. Patient's temperatures to be monitored and cultures and broadening of antibiotic therapy as indicated. He has had extensive exposure to antimicrobials in the past, will quickly alter his antifungal therapy if thrush or fever occurs also. 06/11/2018 patient is feeling somewhat better at this point in time. No new acute changes of been noted. Self-service help his oral cavity relatively well. His denies fevers or chills. He remains on the current prophylactic protocol of acyclovir and is on levofloxacin this will continue Current Visit: Yes Status: Acute Code(s): C92.00 - ACUTE MYELOBLASTIC LEUKEMIA, NOT HAVING ACHIEVED REMISSION SNOMED Code(s): 51398405 (2) COPD (chronic obstructive pulmonary disease) Current Visit: Yes Status: Acute Code(s): J44.9 - CHRONIC OBSTRUCTIVE PULMONARY DISEASE, UNSPECIFIED SNOMED Code(s): 07640504 (3) Pancytopenia Current Visit: Yes Status: Acute Code(s): D61.818 - OTHER PANCYTOPENIA SNOMED Code(s): 565229612
--- NOTE | 2018-06-11 15:12 | P.PN ---
Subjective Progress Note Date: 06/11/18 Principal diagnosis: pancytopenia - New Diagnosis Acute Leukemia Day 4Of HiDAC and tolerating well. No N/V/D/C He has no acute complaints, he is up and walking in room No bleeding, low grade fevers. Objective - Vital Signs Vital signs: Vital Signs Temp 96.8 F L 06/11/18 12:10 Pulse 79 06/11/18 12:10 Resp 20 06/11/18 12:10 BP 128/61 06/11/18 12:10 Pulse Ox 98 06/11/18 12:10 Intake & Output 06/10/18 06/11/18 06/11/18 18:59 06:59 18:59 Intake Total 2009 1600 360 Output Total 400 Balance 1610 1600 360 Intake: Intake, IV Titration 1150 1150 Amount Cytarabine/Pf 1,000 mg 500 Cytarabine/Pf 2,000 mg In Sodium Chloride 0.9% 500 ml 500 ml @ 190 mls/hr IV Q48H [facility] Rx#:[id number] Cytarabine/Pf 1,000 mg 500 Cytarabine/Pf 2,000 mg In Sodium Chloride 0.9% 500 ml 500 ml @ 190 mls/hr IV Q48H [facility] Rx#:[id number] Ondansetron 16 mg In 50 Sodium Chloride 0.9% 50 ml @ 232 mls/hr IVPB Q48H [facility] Rx#:[id number] Sodium Chloride 0.9% 1, 600 650 000 ml @ 75 mls/hr IV . [id number] [facility] Rx#:[id number] Oral 860 450 360 Output: Urine 400 Other: Voiding Method Toilet Toilet Toilet # Voids 3 1 # Bowel Movements 1 - Exam Gen: Alert and NAD HEad: NC NT Lungs CTA Bilateral HR Tachy Abd S/ND Ext No edema Neuro No sensory or motor deficits. - Labs CBC & Chem 7: 06/11/18 07:37 06/11/18 07:37 Labs: Abnormal Lab Results - Last 24 Hours (Table) 06/11/18 06/11/18 Range/Units 07:37 07:37 WBC 0.1 L* (3.8-10.6) k/uL RBC 2.31 L (4.30-5.90) m/uL Hgb 7.0 L (13.0-17.5) gm/dL Hct 21.0 L (39.0-53.0) % RDW 17.7 H (11.5-15.5) % Plt Count 12 L* (150-450) k/uL Chloride 115 H (98-107) mmol/L Carbon Dioxide 20 L (22-30) mmol/L BUN 22 H (9-20) mg/dL Glucose 116 H (74-99) mg/dL Calcium 8.3 L (8.4-10.2) mg/dL AST 13 L (17-59) U/L Total Protein 5.3 L (6.3-8.2) g/dL Albumin 3.0 L (3.5-5.0) g/dL Microbiology - Last 24 Hours (Table) 06/10/18 09:39 Blood Culture - Preliminary Blood No Growth after 24 hours 06/04/18 15:15 Blood Culture - Final Blood No Growth after 144 hours Assessment and Plan Plan: Assessment and Recommendations: 1. Pancytopenia: - Bone Marrow Results - AML - High Dose Cytarabine Induction therapy 06/08/18 - Monitor daily CBC, Transfusion support to continue with irradiated blood products - Questions answered, will transfer patient to Oncology floor for treatment - Monitor Daily CBC, CMP, MAg, Phos, Uric Acid On HiDAC - Pred FOrte Eye drops Hemoglobin 7.7 today transfuse one unit irradiated PRBC - Continue on induction therapy day 4 2. Hx: Lymphoma. - Will check repeat CBC< CMP, LDH, Uric acid, Coags in am 3. Increased Temperatures today: - Ok to continue on chemotherapy - ID following - Continue prophylaxis.
[2018-06-11] MEDS: SODIUM CHLORIDE 0.9% 1,000 ML IV SCH (16:22)
[2018-06-11] MEDS: LEVOFLOXACIN 500 MG TAB PO SCH (17:24)
[2018-06-12] MEDS ORDERED: ACETAMINOPHEN TAB 325 MG TAB PO PRN (04:29)
[2018-06-12 07:51] LABS: Anisocytosis Slight; MCH 31.3 pg (25.0-35.0); MCHC 34.3 g/dL (31.0-37.0); MCV 91.1 fL (80.0-100.0); Mean Platelet Volume 6.6; RBC 2.14 m/uL (4.30-5.90); RDW 18.3 % (11.5-15.5)
[2018-06-12 08:12] LABS: Platelet Count 9 k/uL (150-450); WBC 0.1 k/uL (3.8-10.6)
[2018-06-12 08:13] LABS: HGB 6.7 gm/dL (13.0-17.5)
[2018-06-12 08:14] LABS: HCT 19.5 % (39.0-53.0)
--- NOTE | 2018-06-12 08:19 | P.PN ---
Subjective Progress Note Date: 06/12/18 The patient continues to tolerate treatment well. He has no specific complaints other than some fatigue. He had a mild increase in temperature to 100.1, but no overt fevers. No history of any nausea/vomiting/visual complains Objective - Vital Signs Vital signs: Vital Signs Temp 100.1 F H 06/12/18 04:00 Pulse 81 06/12/18 04:00 Resp 16 06/12/18 04:00 BP 113/54 06/12/18 04:00 Pulse Ox 96 06/12/18 04:00 Intake & Output 06/11/18 06/12/18 06/12/18 18:59 06:59 18:59 Intake Total 1580 Output Total 400 400 Balance 1180 -400 Intake: Intake, IV Titration 600 Amount Sodium Chloride 0.9% 1, 600 000 ml @ 75 mls/hr IV . [id number] [facility] Rx#:[id number] Oral 980 Output: Urine 400 400 Other: Voiding Method Toilet Toilet # Voids 3 1 - Constitutional General appearance: Present: no acute distress - EENT Eyes: Present: EOMI ENT: Present: hearing grossly normal, normal oropharynx - Respiratory Respiratory: bilateral: CTA - Cardiovascular Rhythm: regular Heart sounds: normal: S1, S2 - Gastrointestinal General gastrointestinal: Present: normal bowel sounds, soft - Integumentary Integumentary: Present: normal - Neurologic Neurologic: Present: CNII-XII intact - Musculoskeletal Musculoskeletal: Present: generalized weakness, strength equal bilaterally - Psychiatric Psychiatric: Present: A&O x's 3, appropriate affect - Labs CBC & Chem 7: 06/11/18 07:37 06/11/18 07:37 Labs: Abnormal Lab Results - Last 24 Hours (Table) 06/11/18 06/11/18 Range/Units 07:37 07:37 WBC 0.1 L* (3.8-10.6) k/uL RBC 2.31 L (4.30-5.90) m/uL Hgb 7.0 L (13.0-17.5) gm/dL Hct 21.0 L (39.0-53.0) % RDW 17.7 H (11.5-15.5) % Plt Count 12 L* (150-450) k/uL Chloride 115 H (98-107) mmol/L Carbon Dioxide 20 L (22-30) mmol/L BUN 22 H (9-20) mg/dL Glucose 116 H (74-99) mg/dL Calcium 8.3 L (8.4-10.2) mg/dL AST 13 L (17-59) U/L Total Protein 5.3 L (6.3-8.2) g/dL Albumin 3.0 L (3.5-5.0) g/dL Microbiology - Last 24 Hours (Table) 06/10/18 09:39 Blood Culture - Preliminary Blood No Growth after 24 hours Assessment and Plan (1) Acute myelogenous leukemia Narrative/Plan: The patient is on day #5 of induction chemotherapy with high-dose cytarabine. He will complete treatment tonight. Subjectively he is tolerating treatment well. We can potentially discharge him after completion of treatment, if he is clinically stable. No evidence of tumor lysis by labs Current Visit: Yes Status: Acute Code(s): C92.00 - ACUTE MYELOBLASTIC LEUKEMIA, NOT HAVING ACHIEVED REMISSION SNOMED Code(s): 76028599 (2) Pancytopenia Narrative/Plan: Due to above, an affect of chemotherapy. CBC is being regularly monitored. Await labs from this morning. Transfuse for hemoglobin less than 7, and platelets 10 or less. Only irradiated blood products are being used .no luciano dence of bleeding Current Visit: Yes Status: Acute Code(s): D61.818 - OTHER PANCYTOPENIA SNOMED Code(s): 365497761
[2018-06-12 08:21] LABS: Albumin 2.8 g/dL (3.5-5.0); Calcium 8.3 mg/dL (8.4-10.2); Phosphorus 3.2 mg/dL (2.5-4.5); Potassium 4.1 mmol/L (3.5-5.1); Total Bilirubin 0.7 mg/dL (0.2-1.3); Uric Acid 3.3 mg/dL (3.5-8.5)
[2018-06-12] MEDS: ATORVASTATIN 80 MG TAB PO SCH (09:52)
[2018-06-12] MEDS: ISOSORBIDE MONONITRATE ER 30 MG TAB.ER.24H PO SCH (09:52)
[2018-06-12] MEDS: ACYCLOVIR 200 MG CAP PO SCH ×2 (09:52→20:23)
[2018-06-12] MEDS: PANTOPRAZOLE 40 MG TABLET PO SCH ×2 (09:52→17:45)
[2018-06-12] MEDS: METOPROLOL TARTRATE 25 MG TAB PO SCH ×4 (09:52→20:23)
[2018-06-12] MEDS: ALLOPURINOL 300 MG TAB PO SCH (09:52)
[2018-06-12] MEDS: FAMOTIDINE 20 MG/2 ML VIAL IV SCH (09:52)
[2018-06-12] MEDS: DEXAMETHASONE SOD PHOSPHATE 10 MG/ML 1 ML VIAL IV SCH (09:52)
[2018-06-12] MEDS: ONDANSETRON 16 MG in SODIUM CHLORIDE 0.9% 50 ML IVPB SCH (09:53)
[2018-06-12] MEDS: FOLIC ACID 1 MG TAB PO SCH (09:53)
[2018-06-12] MEDS: prednisoLONE ACETATE 1% OPHTH DROPS 5 ML BTL BOTH EYES SCH ×4 (09:53→20:23)
[2018-06-12] MEDS: ASCORBIC ACID 500 MG TAB PO SCH (09:53)
[2018-06-12] MEDS: SODIUM CHLORIDE 0.9% 1,000 ML IV SCH (10:46)
[2018-06-12] MEDS: SALT AND SODA MOUTHWASH 1,000 ML PO SCH ×4 (10:46→20:23)
[2018-06-12] MEDS: CYTARABINE IV SCH ×2 (10:48→21:42)
[2018-06-12] MEDS: SODIUM CHLORIDE 0.9% IV SCH ×2 (10:48→21:42)
[2018-06-12] MEDS: FLUCONAZOLE 100 MG TAB PO SCH (10:48)
[2018-06-12 15:18] VITALS: RESP 16
[2018-06-12] MEDS: LEVOFLOXACIN 500 MG TAB PO SCH (16:10)
--- NOTE | 2018-06-12 16:45 | PN ---
PROGRESS NOTE SUBJECTIVE: 62-year-old white male with anemia acute myelogenous leukemia attack on day 5 chemotherapy, has severe thrombocytopenia of 9000, hemoglobin 6.7, and white count 0.1. No chest pain or shortness of breath. He is on antibiotic prophylaxis for infections with Levaquin and Zovirax. PHYSICAL EXAMINATION: Vital signs is stable. CARDIOVASCULAR: S1, S2. Lungs clear. GI soft. ASSESSMENT AND PLAN: 1. Severe pancytopenia with severe anemia and thrombocytopenia with blood transfusion 1 unit of packed red blood cells irradiated, 1 unit platelets, irradiated. 2. Continue on the chemotherapy per Oncology. 3. Possible discharge home in next few days if pancytopenia stabilizes. MMODL / IJN: [id number] /
[2018-06-13] MEDS: SODIUM CHLORIDE 0.9% 1,000 ML IV SCH (03:58)
[2018-06-13 05:48] VITALS: BP 96/55; PULSE 58; TEMP 98
[2018-06-13 08:06] LABS: Anisocytosis Slight; HCT 21.3 % (39.0-53.0); HGB 7.5 gm/dL (13.0-17.5); MCH 31.2 pg (25.0-35.0); MCHC 35.1 g/dL (31.0-37.0); MCV 88.8 fL (80.0-100.0); Mean Platelet Volume 7.9; RDW 17.4 % (11.5-15.5)
[2018-06-13 08:08] LABS: ALT 34 U/L (21-72); AST 18 U/L (17-59); Albumin 2.8 g/dL (3.5-5.0); Alkaline Phosphatase 71 U/L (38-126); Anion Gap 5 mmol/L; Blood Urea Nitrogen 23 mg/dL (9-20); Calcium 8.4 mg/dL (8.4-10.2); Carbon Dioxide 22 mmol/L (22-30); Chloride 113 mmol/L (98-107); Glucose 127 mg/dL (74-99); Magnesium 2.1 mg/dL (1.6-2.3); Phosphorus 3.3 mg/dL (2.5-4.5); Potassium 4.2 mmol/L (3.5-5.1); Sodium 140 mmol/L (137-145); Total Bilirubin 0.8 mg/dL (0.2-1.3); Total Protein 5.1 g/dL (6.3-8.2)
[2018-06-13 08:10] LABS: WBC 0.1 k/uL (3.8-10.6)
[2018-06-13 08:11] LABS: Platelet Count 21 k/uL (150-450)
[2018-06-13] MEDS: METOPROLOL TARTRATE 25 MG TAB PO SCH (09:34)
[2018-06-13] MEDS: prednisoLONE ACETATE 1% OPHTH DROPS 5 ML BTL BOTH EYES SCH (09:34)
[2018-06-13] MEDS: ISOSORBIDE MONONITRATE ER 30 MG TAB.ER.24H PO SCH (09:34)
[2018-06-13] MEDS: FOLIC ACID 1 MG TAB PO SCH (09:34)
[2018-06-13] MEDS: ALLOPURINOL 300 MG TAB PO SCH (09:34)
[2018-06-13] MEDS: ACYCLOVIR 200 MG CAP PO SCH (09:34)
[2018-06-13] MEDS: ATORVASTATIN 80 MG TAB PO SCH (09:35)
[2018-06-13] MEDS: SALT AND SODA MOUTHWASH 1,000 ML PO SCH (09:35)
[2018-06-13] MEDS: ASCORBIC ACID 500 MG TAB PO SCH (09:35)
[2018-06-13] MEDS: PANTOPRAZOLE 40 MG TABLET PO SCH (09:35)
[2018-06-13] MEDS: FLUCONAZOLE 100 MG TAB PO SCH (10:41)
--- NOTE | 2018-06-13 12:12 | P.PN ---
Subjective Progress Note Date: 06/13/18 The patient completed induction chemotherapy with high-dose cytarabine on 06/12/18. He denies any fever/chills/nausea/vomiting/I complains or difficulty with walking. He has some generalized weakness which is stable. He status post blood and platelet transfusions yesterday. Objective - Vital Signs Vital signs: Vital Signs Temp 98 F 06/13/18 04:00 Pulse 58 L 06/13/18 04:00 Resp 16 06/13/18 04:00 BP 96/55 06/13/18 04:00 Pulse Ox 99 06/13/18 04:00 Intake & Output 06/12/18 06/13/18 06/13/18 18:59 06:59 18:59 Intake Total 1348 310 Balance 1348 310 Intake: Intake, IV Titration 1150 Amount Cytarabine/Pf 1,000 mg 500 Cytarabine/Pf 2,000 mg In Sodium Chloride 0.9% 500 ml 500 ml @ 190 mls/hr IV Q48H [facility] Rx#:[id number] Ondansetron 16 mg In 50 Sodium Chloride 0.9% 50 ml @ 232 mls/hr IVPB Q48H [facility] Rx#:[id number] Sodium Chloride 0.9% 1, 600 000 ml @ 75 mls/hr IV . [id number] [facility] Rx#:[id number] Blood Product 198 310 Platelet Irr Pheresis 198 Acda1 Unit [id number] Rc Irr As1 Unit 0 310 [id number] Other: Voiding Method Toilet Toilet Toilet # Voids 2 - Constitutional General appearance: Present: no acute distress - EENT Eyes: Present: EOMI ENT: Present: hearing grossly normal, normal oropharynx - Respiratory Respiratory: bilateral: CTA - Cardiovascular Rhythm: regular Heart sounds: normal: S1, S2 - Gastrointestinal General gastrointestinal: Present: soft - Integumentary Integumentary: Present: normal - Neurologic Neurologic: Present: CNII-XII intact - Musculoskeletal Musculoskeletal: Present: generalized weakness - Psychiatric Psychiatric: Present: A&O x's 3, appropriate affect - Labs CBC & Chem 7: 06/13/18 07:23 06/13/18 07:23 Labs: Abnormal Lab Results - Last 24 Hours (Table) 06/09/18 06/13/18 06/13/18 Range/Units 13:05 07:23 07:23 WBC 0.1 L* (3.8-10.6) k/uL RBC 2.40 L (4.30-5.90) m/uL Hgb 7.5 L (13.0-17.5) gm/dL Hct 21.3 L (39.0-53.0) % RDW 17.4 H (11.5-15.5) % Plt Count 21 L D (150-450) k/uL Chloride 113 H (98-107) mmol/L BUN 23 H (9-20) mg/dL Glucose 127 H (74-99) mg/dL Total Protein 5.1 L (6.3-8.2) g/dL Albumin 2.8 L (3.5-5.0) g/dL Crossmatch See Detail Microbiology - Last 24 Hours (Table) 06/10/18 09:39 Blood Culture - Preliminary Blood No Growth after 72 hours Assessment and Plan (1) Acute myelogenous leukemia Narrative/Plan: The patient has completed induction chemotherapy, with overall good subjective tolerance. Labs have not shown any evidence of tumor lysis. As the patient appears to be clinically stable, he can be discharged home on prophylactic antibiotics, and close monitoring of blood counts. Infection precautions, monitoring for fever, as well as blood count monitoring in the outpatient setting were discussed in detail. From my standpoint, he can be discharged on prophylactic antibiotics, and allopurinol. He was also asked to continue the steroid eyedrops for another 4-5 days. Oral care was also discussed. Plan was discussed in detail with the admitting service who will subsequently discharged patient Current Visit: Yes Status: Acute Code(s): C92.00 - ACUTE MYELOBLASTIC LEUKEMIA, NOT HAVING ACHIEVED REMISSION SNOMED Code(s): 99063693 (2) Pancytopenia Narrative/Plan: Due to underlying AML, and antineoplastic chemotherapy. The patient received 1 unit of packed RBCs and 1 unit of platelets yesterday, with appropriate improvement in counts. Hemoglobin is 7.5, and platelets 21 today. The patient will have CBCs in the office 3 times a week starting next week, with transfusions as needed Current Visit: Yes Status: Acute Code(s): D61.818 - OTHER PANCYTOPENIA SNOMED Code(s): 745097592
[2018-06-13] MEDS: LEVOFLOXACIN 500 MG TAB PO SCH (14:10)
== END 2018-06-13 15:00 | disposition home or self-care (01) | DRG 834 ==
LOC: EC 14:21 → 3SCARD 16:11 → 3NMEDONC 06-07 17:54
PROVIDERS: ADMIT Family Medicine; ATTEND Family Medicine
PROC: 30233N1 Transfusion of Nonautologous Red Blood Cells into Peripheral Vein, Percutaneous Approach (ICD-10-PCS; 2018-06-04)
PROC: 07DR3ZX Extraction of Iliac Bone Marrow, Percutaneous Approach, Diagnostic (ICD-10-PCS; principal; 2018-06-04 07:30)
PROC: 30233R1 Transfusion of Nonautologous Platelets into Peripheral Vein, Percutaneous Approach (ICD-10-PCS; 2018-06-05)
PROC: XW033B3 Introduction of Cytarabine and Daunorubicin Liposome Antineoplastic into Peripheral Vein, Percutaneous Approach, New Technology Group 3 (ICD-10-PCS; 2018-06-07)
DX: C92.00 Acute myeloblastic leukemia, not having achieved remission (principal); D61.810 Antineoplastic chemotherapy induced pancytopenia; C83.30 Diffuse large B-cell lymphoma, unspecified site; J43.9 Emphysema, unspecified; F17.210 Nicotine dependence, cigarettes, uncomplicated; I25.10 Atherosclerotic heart disease of native coronary artery without angina pectoris; I25.2 Old myocardial infarction; Z79.899 Other long term (current) drug therapy; Z79.02 Long term (current) use of antithrombotics/antiplatelets; Z79.82 Long term (current) use of aspirin; Z80.3 Family history of malignant neoplasm of breast; Z81.1 Family history of alcohol abuse and dependence; Z87.01 Personal history of pneumonia (recurrent); Z92.21 Personal history of antineoplastic chemotherapy; Z81.8 Family history of other mental and behavioral disorders; R63.4 Abnormal weight loss; Z68.23 Body mass index [BMI] 23.0-23.9, adult; K08.9 Disorder of teeth and supporting structures, unspecified; T45.1X5A Adverse effect of antineoplastic and immunosuppressive drugs, initial encounter; R91.8 Other nonspecific abnormal finding of lung field
CPT/HCPCS: 36415; 38222; 71045; 71260; 74177; 80048; 80053; 81003; 82272; 82784; 83615; 83735; 84100; 84484; 84550; 85025; 85027; 85610; 85730; 86850; 86900; 86901; 86920; 87040; 93005; 94760; 96360; 99291; 99406

== ENCOUNTER 2018-06-23 09:50 | Inpatient (IN) | payer MEDICARE ==
[2018-06-23] MEDS ORDERED: SODIUM CHLORIDE 0.9% 1,000 ML IV STA (10:33)
[2018-06-23] MEDS ORDERED: SODIUM CHLORIDE 0.9% 2,000 ML IV ONE (10:33)
--- NOTE | 2018-06-23 10:39 | ED ---
Fever HPI - General Chief Complaint: Fever Stated Complaint: fever, cancer pt Time Seen by Provider: 06/23/18 10:10 Source: patient, RN notes reviewed Mode of arrival: wheelchair Limitations: no limitations - History of Present Illness Initial Comments: This is a 62-year-old male history of AML who just finished his first round of chemotherapy about 10 days ago and who had a weight with transfers effusion yesterday at [facility] who is here today because of fever that 24.6 men she feels wobbly lightheaded just decreased oral intake. He does have rhinorrhea no overt cough or phlegm production he does smoke he cigarettes who states he's had no phlegm production he does not use inhalers and has never been diagnosed with COPD or emphysema. Denies any dysuria hematuria or other symptoms at this time no other modifying factors. MD Complaint: fever, weakness - Related Data Home Medications Medication Instructions Recorded Confirmed Vitamin B Complex 1 cap PO DAILY 12/11/16 06/23/18 Folic Acid 0.4 mg PO DAILY 02/18/17 06/23/18 Ascorbic Acid [Vitamin C] 500 mg PO DAILY 06/02/18 06/23/18 Atorvastatin [Lipitor] 80 mg PO DAILY 06/02/18 06/23/18 Ferrous Sulfate [Feosol] 325 mg PO DAILY 06/23/18 06/23/18 Metoprolol Succinate [Toprol XL] 25 mg PO DAILY 06/23/18 06/23/18 Previous Rx's Medication Instructions Recorded Isosorbide Mononitrate ER [Imdur] 30 mg PO DAILY #30 tab 04/16/17 Acyclovir [Zovirax] 400 mg PO BID #42 tab 06/13/18 Allopurinol [Zyloprim] 300 mg PO DAILY #21 tablet 06/13/18 Levofloxacin [Levaquin] 500 mg PO DAILY #21 tab 06/13/18 Allergies Allergy/AdvReac Type Severity Reaction Status Date / Time No Known Allergies Allergy Verified 06/23/18 10:49 Review of Systems ROS Statement: Those systems with pertinent positive or pertinent negative responses have been documented in the HPI. ROS Other: All systems not noted in ROS Statement are negative. Past Medical History Past Medical History: Cancer, Myocardial Infarction ([place]), Pneumonia Additional Past Medical History / Comment(s): 2000 diagnosed with CLL treated with chemo successfully, 08/2014 R side back mass-diffuse large B cell lymphoma treated with chemo, 11/2016 recurrent R back mass-diffuse large B cell lymphoma with current chemo, pancytopenia, ITP, anemia, pneumonia with sepsis, 02/20/17 NSTEMI with heart cath-tx medically. Last Myocardial Infarction Date:: 02/20/17 History of Any Multi-Drug Resistant Organisms: None Reported Past Surgical History: Heart Catheterization Additional Past Surgical History / Comment(s): 02/20/17 cardiac cath, 2000 BMA, R upper back mass-needle bxs, colonoscopy-normal, power port. Past Anesthesia/Blood Transfusion Reactions: No Reported Reaction Additional Past Anesthesia/Blood Transfusion Reaction / Comment(s): Pt has received blood in the past without reaction. 02/20/17 pt had chest pain/SOB (NSTEMI) 1 day post transfusion. Past Psychological History: No Psychological Hx Reported Smoking Status: Former smoker Past Alcohol Use History: None Reported Past Drug Use History: None Reported - Past Family History Father Additional Family Medical History / Comment(s): Father was an alcoholic. He committed suicide. Mother Family Medical History: Cancer Additional Family Medical History / Comment(s): Mother had Breast Cancer 25 yrs ago. She is 85yrs old. General Exam - General Exam Comments Initial Comments: This is a well-developed asthenic appearing male who is awake alert oriented 3 Limitations: no limitations General appearance: alert, lethargic Head exam: Present: atraumatic, normocephalic, normal inspection Eye exam: Present: normal appearance, PERRL, EOMI. Absent: scleral icterus, conjunctival injection, periorbital swelling ENT exam: Present: other Neck exam: Present: normal inspection, full ROM, other (No stridor JVD or bruits). Absent: tenderness, meningismus, lymphadenopathy Respiratory exam: Present: decreased breath sounds. Absent: respiratory distress, wheezes, rales, rhonchi, stridor Cardiovascular Exam: Present: normal rhythm, tachycardia, normal heart sounds. Absent: systolic murmur, diastolic murmur, rubs, gallop, clicks GI/Abdominal exam: Present: soft, normal bowel sounds. Absent: distended, tenderness, guarding, rebound, rigid Extremities exam: Present: normal inspection, full ROM, normal capillary refill. Absent: tenderness, pedal edema, joint swelling, calf tenderness Back exam: Present: normal inspection Neurological exam: Present: alert, oriented X3, CN II-XII intact Psychiatric exam: Present: normal affect, normal mood Skin exam: Present: warm, dry, intact, normal color. Absent: rash Course Vital Signs 06/23/18 06/23/18 06/23/18 09:54 10:30 11:01 Temperature 99.4 F Pulse Rate 109 H 91 98 Respiratory 18 Rate Blood Pressure 77/46 90/54 89/64 O2 Sat by Pulse 97 96 96 Oximetry - Reevaluation(s) Reevaluation #1: 06/23/18 12:48 Chronic monitor: bus monitor was initiated because of the patient's symptoms to rule out PVCs or dysrhythmia. Occasional PVCs are noted heart rate was 96 on my evaluation. Medical Decision Making - Medical Decision Making Did discuss case with Dr. Andrade as well as Dr. Farlye in the family members were present. I did reevaluate the patient on several occasions. Patient be ad mitted for IV antibiotics blood transfusion IV fluids and infectious disease consultation will be obtained by Dr. Richey - Lab Data Result diagrams: 06/23/18 10:22 06/23/18 10:22 Lab Results 06/23/18 06/23/18 06/23/18 Range/Units 10:22 10:22 10:22 WBC (3.8-10.6) k/uL RBC (4.30-5.90) m/uL Hgb (13.0-17.5) gm/dL Hct (39.0-53.0) % MCV (80.0-100.0) fL MCH (25.0-35.0) pg MCHC (31.0-37.0) g/dL RDW (11.5-15.5) % Plt Count (150-450) k/uL Neutrophils # Differential Comment Manual Slide Review RBC Morphology Sodium 136 L (137-145) mmol/L Potassium 3.8 (3.5-5.1) mmol/L Chloride 107 (98-107) mmol/L Carbon Dioxide 22 (22-30) mmol/L Anion Gap 7 mmol/L BUN 25 H (9-20) mg/dL Creatinine 1.64 H (0.66-1.25) mg/dL Est GFR (CKD-EPI)AfAm 50 (>60 ml/min/1.73 sqM) Est GFR (CKD-EPI)NonAf 44 (>60 ml/min/1.73 sqM) Glucose 124 H (74-99) mg/dL Plasma Lactic Acid Jaylen 0.8 (0.7-2.0) mmol/L Calcium 8.4 (8.4-10.2) mg/dL Magnesium 2.1 (1.6-2.3) mg/dL Total Bilirubin 1.4 H (0.2-1.3) mg/dL AST 19 (17-59) U/L ALT 39 (21-72) U/L Alkaline Phosphatase 90 (38-126) U/L Total Creatine Kinase 92 (55-170) U/L CK-MB (CK-2) 0.9 (0.0-2.4) ng/mL CK-MB (CK-2) Rel Index 1.0 Troponin I 0.222 H* (0.000-0.034) ng/mL Total Protein 5.4 L (6.3-8.2) g/dL Albumin 3.0 L (3.5-5.0) g/dL Urine Color Urine Appearance (Clear) Urine pH (5.0-8.0) Ur Specific [place] (1.001-1.035) Urine Protein (Negative) Urine Glucose (UA) (Negative) Urine Ketones (Negative) Urine Blood (Negative) Urine Nitrite (Negative) Urine Bilirubin (Negative) Urine Urobilinogen (<2.0) mg/dL Ur Leukocyte Esterase (Negative) Urine RBC (0-5) /hpf Urine WBC (0-5) /hpf Amorphous Sediment (None) /hpf Granular Casts (0) /lpf Urine Mucus (None) /hpf Influenza Type A RNA (Not Detectd) Influenza Type B (PCR) (Not Detectd) 06/23/18 06/23/18 06/23/18 Range/Units 10:22 10:45 11:13 WBC 0.1 L* (3.8-10.6) k/uL RBC 2.10 L (4.30-5.90) m/uL Hgb 6.1 L* (13.0-17.5) gm/dL Hct 18.2 L* (39.0-53.0) % MCV 86.5 (80.0-100.0) fL MCH 29.1 (25.0-35.0) pg MCHC 33.7 (31.0-37.0) g/dL RDW 15.4 (11.5-15.5) % Plt Count 21 L (150-450) k/uL Neutrophils # WEED [facility]INNER Differential Comment Manual Slide Review Performed RBC Morphology Normal Sodium (137-145) mmol/L Potassium (3.5-5.1) mmol/L Chloride (98-107) mmol/L Carbon Dioxide (22-30) mmol/L Anion Gap mmol/L BUN (9-20) mg/dL Creatinine (0.66-1.25) mg/dL Est GFR (CKD-EPI)AfAm (>60 ml/min/1.73 sqM) Est GFR (CKD-EPI)NonAf (>60 ml/min/1.73 sqM) Glucose (74-99) mg/dL Plasma Lactic Acid Jaylen (0.7-2.0) mmol/L Calcium (8.4-10.2) mg/dL Magnesium (1.6-2.3) mg/dL Total Bilirubin (0.2-1.3) mg/dL AST (17-59) U/L ALT (21-72) U/L Alkaline Phosphatase (38-126) U/L Total Creatine Kinase (55-170) U/L CK-MB (CK-2) (0.0-2.4) ng/mL CK-MB (CK-2) Rel Index Troponin I (0.000-0.034) ng/mL Total Protein (6.3-8.2) g/dL Albumin (3.5-5.0) g/dL Urine Color Yellow Urine Appearance Clear (Clear) Urine pH 5.5 (5.0-8.0) Ur Specific [place] 1.025 (1.001-1.035) Urine Protein 1+ H (Negative) Urine Glucose (UA) Negative (Negative) Urine Ketones Negative (Negative) Urine Blood Negative (Negative) Urine Nitrite Negative (Negative) Urine Bilirubin Negative (Negative) Urine Urobilinogen 4.0 (<2.0) mg/dL Ur Leukocyte Esterase Negative (Negative) Urine RBC 1 (0-5) /hpf Urine WBC 2 (0-5) /hpf Amorphous Sediment Occasional H (None) /hpf Granular Casts 3 (0) /lpf Urine Mucus Rare H (None) /hpf Influenza Type A RNA Not Detected (Not Detectd) Influenza Type B (PCR) Not Detected (Not Detectd) - EKG Data -: EKG Interpreted by Me EKG shows normal: sinus rhythm (Sinus rhythm with occasional PVCs rate was 154 QRS 118 daily since QTC 41008/07/2011 QT is noted nonspecific ST configuration incomplete right bundle-branch block) - Radiology Data Radiology results: report reviewed (I did review the imaging and report is evidence a right upper lobe infiltrate.), image reviewed Critical Care Time Critical Care Time: Yes Critical Care Time: 35 mg of critical care time which was initial presentation with history physical labs x-rays review of old charting was available multiple reevaluation the patient. Discussed with the patient family members and several occasions discussion with the admitting physician Dr. Farley as well as discussed with Dr. Andrade. Admission orders and documentation of the above Disposition Clinical Impression: Right upper lobe pneumonia, Neutropenia with fever, Anemia, AML (acute myeloblastic leukemia), Renal insufficiency syndrome, Non-ST elevation m yocardial infarction (NSTEMI) Disposition: ADMITTED IP TO THIS HOSP Condition: Serious Referrals: Jeffry Andrade MD [Primary Care Provider] - 1-2 days
[2018-06-23 11:15] LABS: Calcium 8.4 mg/dL (8.4-10.2); Magnesium 2.1 mg/dL (1.6-2.3); Potassium 3.8 mmol/L (3.5-5.1); Total Bilirubin 1.4 mg/dL (0.2-1.3); Total Protein 5.4 g/dL (6.3-8.2)
[2018-06-23 11:24] LABS: MCH 29.1 pg (25.0-35.0); MCHC 33.7 g/dL (31.0-37.0); MCV 86.5 fL (80.0-100.0); Mean Platelet Volume 7.4; RDW 15.4 % (11.5-15.5)
--- NOTE | 2018-06-23 11:28 | XR ---
EXAMINATION TYPE: XR chest 2V DATE OF EXAM: 06/23/2018 COMPARISON: 06/10/2018 TECHNIQUE: PA and lateral views submitted. HISTORY: Cough FINDINGS: No pneumothorax or pleural. Hyperinflation suggestive of COPD. Mediport catheter seen. Arthropathy o f the shoulders. Hypertrophic change of the spine. No overt failure. Within the right upper lobe ther e is patchy infiltrate. IMPRESSION: 1. COPD with patchy right upper lobe infiltrate.
[2018-06-23 11:30] LABS: HCT 18.2 % (39.0-53.0); HGB 6.1 gm/dL (13.0-17.5); Platelet Count 21 k/uL (150-450); WBC 0.1 k/uL (3.8-10.6)
[2018-06-23 11:45] LABS: Creatine Kinase MB 0.9 ng/mL (0.0-2.4)
[2018-06-23 11:47] LABS: Troponin I 0.222 ng/mL (0.000-0.034)
[2018-06-23 12:04] LABS: Amorphous Sediment,Urine Occasional /hpf; Appearance,Urine Clear (Clear); Bilirubin,Urine Negative (Negative); Blood,Urine Negative (Negative); Color,Urine Yellow; Glucose,Urine (UA) Negative (Negative); Granular Casts,Urine 3 /lpf (0); Ketones,Urine Negative (Negative); Leukocyte Esterase,Urine Negative (Negative); Mucus,Urine Rare /hpf; Nitrite,Urine Negative (Negative); PH, Urine 5.5 (5.0-8.0); Protein,Urine 1+ (Negative); RBC,Urine 1 /hpf (0-5); Specific Gravity,Urine 1.025 (1.001-1.035)
[2018-06-23] MEDS ORDERED: CEFEPIME 2 GM in SODIUM CHLORIDE 0.9% 100 ML IVPB STA (12:19)
[2018-06-23] MEDS ORDERED: VANCOMYCIN IV PER PHARMACY 1 EACH MISC MISCELLANE PRN (12:45)
[2018-06-23] MEDS ORDERED: PNEUMONIA PROTOCOL UTILIZED 1 EACH MISC PO PRN (12:51)
[2018-06-23] MEDS ORDERED: IPRATROPIUM-ALBUTEROL 3 ML NEB INHALATION PRN (12:51)
[2018-06-23] MEDS ORDERED: VANCOMYCIN 1,750 MG in SODIUM CHLORIDE 0.9% 500 ML 500 ML IVPB ONE (13:00)
--- NOTE | 2018-06-23 15:50 | HP ---
HISTORY AND PHYSICAL CHIEF COMPLAINT: This patient is a 62-year-old white male with AML, just received his first bout of chemotherapy 10 days ago. He had a transfusion yesterday at [facility]. He came in here for fever, 24.6, wobbly. He was found to have right upper lobe pneumonia with immune suppression, admitted for immune suppression pneumonia. He smoked cigarettes for many years. MEDICATIONS: Include: 1. Lipitor 80 mg daily. 2. Iron sulfate 325 daily. 3. Toprol-XL 25 daily. 4. Vitamin B complex daily. 5. Folic acid 0.4 mg daily. ALLERGIES: NEGATIVE. REVIEW OF SYSTEMS: Fourteen-point review of systems negative except for mentioned in HPI. PAST MEDICAL HISTORY: 1. Cancer. 2. AML. 3. Myocardial infarction. 4. Pneumonia. 5. Right-sided back mass. 6. Diffuse large B-cell lymphoma. 7. Pancytopenia. 8. ITP. 9. Anemia. 10.Pneumonia with sepsis. 11.Non-STEMI. 12.Heart catheterization in 2017. SOCIAL HISTORY: Former smoker. No alcohol. No illicit drugs. FAMILY HISTORY: Father alcoholic, committed suicide. Mother cancer breast. PHYSICAL EXAMINATION: VITAL SIGNS: Stable. Afebrile. CARDIOVASCULAR: S1, S2. LUNGS: Transmitted upper airway sounds. HEMATOLOGY: Negative Homans. PSYCH: Fair mood and affect. LUNGS: Scattered rhonchi, right upper lobe wheezes. NEUROLOGIC: Alert and orient x3. INTEGUMENT: No rashes. PHYSICAL EXAMINATION: Pulse is 91 to 109, temperature 99.4, blood pressure 70s to 90s over 40s to 60s, oxygen 96% to 97%. ASSESSMENT: Right upper lobe pneumonia with immune suppression with AML. Continue with IV antibiotics, vancomycin, cefepime, updraft treatments, Pulmicort. Await current treatment. Monitor his electrolytes and CBC daily. Follow up in the next 24 to 48 hours. Primitivob for updrafts. Continue home medications. MMODL / IJN: [id number] /
[2018-06-23] MEDS ORDERED: ACETAMINOPHEN TAB 500 MG TAB PO STA (16:15)
[2018-06-23] MEDS: ACYCLOVIR 200 MG CAP PO SCH (20:42)
--- NOTE | 2018-06-23 23:07 | CONS ---
CONSULTATION DATE OF SERVICE: 06/23/2018 REASON FOR CONSULTATION: Febrile neutropenia. HISTORY OF PRESENT ILLNESS: The patient is a 62-year-old male with a past medical history significant for AML. The patient had his last chemo about 10 days ago. The patient apparently has not been feeling well since his last chemo. The patient did have a platelet transfusion yesterday and apparently did have a reaction on receiving those platelets. The patient has been complaining of not feeling well, generalized weakness, fever with chills. The patient denies having any headache or other URI symptoms. Does have some sore throat. He did have some cough which is mild in nature and is dry, with no sputum production. Denies any pleuritic chest pain. No nausea. No vomiting. No abdominal pain or any diarrhea. With these symptoms the patient presented to the [facility] ER. The patient was noted to be running a fever of 104 degrees Fahrenheit. The patient's workup in the ER included influenza serology that was negative. His white count was 0.1, platelet count was 21, BUN of 25, creatinine 1.64. count has been normal. Liver enzymes are normal. Troponin is slightly elevated. Urine was negative. Influenza serology was negative. The patient did have a chest x-ray which shows COPD with patchy right upper lobe infiltrate. The patient has been started on vancomycin, Pharmacy to dose, and cefepime 2 grams q.8 hours. He was admitted to the hospital. Infectious Disease was consulted for further recommendations regarding antibiotic therapy. REVIEW OF SYSTEMS: Positive points have been mentioned in the HPI. Other systems are negative. PAST MEDICAL HISTORY: 1. MA. 2. Pneumonia. 3. Large B-cell lymphoma. 4. Pneumonia with sepsis. 5. CLL. PAST SURGICAL HISTORY: 1. Heart catheterization. 2. Right upper back mass needle biopsy. 3. Colonoscopy. 4. Mediport placement. SOCIAL HISTORY: Remote history of smoking. No drinking or any drug use. FAMILY HISTORY: Father alcoholic, committed suicide. Mother with history of breast cancer. ALLERGIES: NO KNOWN DRUG ALLERGIES. CURRENT MEDICATIONS: Include: 1. Acyclovir. 2. DuoNeb. 3. Zyloprim. 4. Vitamin C. 5. Lipitor. 6. Cefepime 2 grams q.8 hours. 7. Iron sulfate. 8. Imdur. 9. Toprol-XL. 10.Vancomycin 1500 mg q.16 hours. PHYSICAL EXAMINATION: Blood pressure is 90/58 with a pulse of 89, temperature 100.3, T-max of 104. He is 97% on 2 L nasal cannula. General description is a middle-aged male lying in bed in no distress. No tachypnea or accessory muscles of respiration use. HEENT examination shows pallor. No scleral icterus. Oral mucosa membrane is dry. NECK: Trachea is central. No thyromegaly. LUNGS: Unlabored breathing. Decreased intensity of breath sounds. Some crackles. HEART: S1, S2. Regular rate and rhythm. ABDOMEN: Soft. No tenderness. No guarding or rigidity. EXTREMITIES: No edema of the feet. SKIN EXAMINATION: No rash or mass palpable. Neurologically the patient is awake, alert, oriented x3. Mood and affect normal. LABS: Hemoglobin 6.1, white count 0.1. BUN of 25, creatinine 1.64. Electrolytes have been normal. Bilirubin 1.4. ALT and AST normal. Troponin 0.22. UA negative. Influenza serology was negative. Chest x-ray with right-sided infiltrate. IMPRESSION AND PLAN: Patient admitted to hospital with febrile neutropenia in this patient who recently received chemotherapy for leukemia about 10 days ago. He seemed to have a problem with transfusion reaction to platelets. The patient did have mild nonproductive cough with evidence of infiltrate likely source to be pneumonia. The patient currently has no other clinical focus of infection UA has been negative and the [facility] site looks clean. PLAN: 1. Will try to obtain sputum for Gram stain and culture and sensitivity. 2. Cefepime 2 grams q.12 hours. 3. Vancomycin, Pharmacy to dose, while watching his kidney function closely. 4. Dr. Corrales will follow this patient in my absence starting tomorrow. Family was present at the bedside. Their questions and concerns were answered. MMODL / IJN: [id number] /
[2018-06-23] MEDS: CEFEPIME 2 GM in SODIUM CHLORIDE 0.9% 100 ML IVPB SCH (23:42)
[2018-06-23] MEDS: ACETAMINOPHEN TAB 325 MG TAB PO PRN (23:42)
[2018-06-24] MEDS: VANCOMYCIN 1,500 MG in SODIUM CHLORIDE 0.9% 250 ML IVPB SCH ×2 (06:17→21:01)
[2018-06-24] MEDS: ACETAMINOPHEN TAB 325 MG TAB PO PRN ×3 (06:26→20:06)
[2018-06-24 07:22] LABS: Albumin 2.9 g/dL (3.5-5.0); Calcium 8.3 mg/dL (8.4-10.2); Potassium 3.9 mmol/L (3.5-5.1); Total Bilirubin 1.2 mg/dL (0.2-1.3); Total Protein 5.6 g/dL (6.3-8.2)
[2018-06-24 07:27] LABS: HCT 23.4 % (39.0-53.0); MCH 30.3 pg (25.0-35.0); MCHC 34.7 g/dL (31.0-37.0); MCV 87.3 fL (80.0-100.0); Mean Platelet Volume 8.4; RBC 2.68 m/uL (4.30-5.90); RDW 15.4 % (11.5-15.5)
[2018-06-24 07:30] LABS: WBC 0.1 k/uL (3.8-10.6)
[2018-06-24] MEDS ORDERED: NON-FORMULARY DRUG (Vitamin B Complex [Vitamin B Complex] 1 CAP) PO SCH (09:00)
[2018-06-24 09:13] LABS: Poikilocytosis (M) Present
[2018-06-24 09:14] LABS: Platelet Count 15 k/uL (150-450)
[2018-06-24] MEDS: ALLOPURINOL 300 MG TAB PO SCH (09:30)
[2018-06-24] MEDS: ACYCLOVIR 200 MG CAP PO SCH ×2 (09:30→21:02)
[2018-06-24] MEDS: METOPROLOL SUCCINATE (ER) 25 MG TAB.ER.24H PO SCH (09:31)
[2018-06-24] MEDS: ATORVASTATIN 80 MG TAB PO SCH (09:31)
[2018-06-24] MEDS: ISOSORBIDE MONONITRATE ER 30 MG TAB.ER.24H PO SCH (09:31)
[2018-06-24] MEDS: CEFEPIME 2 GM in SODIUM CHLORIDE 0.9% 100 ML IVPB SCH ×2 (11:04→16:33)
[2018-06-24] MEDS: ASCORBIC ACID 500 MG TAB PO SCH (11:14)
[2018-06-24] MEDS: FOLIC ACID 1 MG TAB PO SCH (11:15)
[2018-06-24] MEDS: FERROUS SULFATE 325 MG TAB PO SCH (11:15)
--- NOTE | 2018-06-24 12:37 | P.CRDCN ---
History of Present Illness Consult date: 06/24/18 Requesting physician: Jona Farley Reason for Consult (text): Abnormal troponin Chief complaint: Generalized weakness, fever chills History of present illness: This is a 62-year-old gentleman with past medical history significant for lymphoma, coronary artery disease, chronic tobacco use. He follows with Dr. Luciano in the office. Patient underwent a most recent cardiac cath eterization in 2016 which revealed a total occlusion of the RCA, ostial circumflex disease, moderate disease in the LAD, and was declined by CT surgery medical therapy was recommended at that time. Patient also has history of nicotine dependence, hyperlipidemia. The patient has AML, his last chemo was approximately 10 days ago. Apparently since that time the patient has not been feeling well at all. He did have a platelet infusion prior to coming to the hospital and had a reaction to those platelets. He's been complaining in general of feeling extremely weak, he has been experiencing fever and chills at home. He does have a dry tachycardia cough, nonproductive with associated sore throat. Influenza A and B were negative in the emergency room. He did present with a fever of 99.4, it did go up to 104. Infectious disease is following. Blood pressure on arrival 77/46, heart rate 108, 97% on room air. Blood Let pressure this morning 110/60. White blood cell count 0.1 on admission hemoglobin 6.1, platelet count 21, sodium 136, potassium 3.8, BUN 25 and creatinine 1.6, magnesium 2.1, total bilirubin 1.4, troponin 0.222. This morning's labs White blood cell count 0.1, hemoglobin 8.1, platelet count 15, sodium 139, potassium 3.9, BUN 20 and creatinine 1.3. Cardiology consultation was requested because of abnormality in troponin. Patient denies having any chest discomfort. EKG shows a normal sinus rhythm with incomplete right bundle branch block pattern and nonspecific ST-T wave changes with occasional PVC. Past Medical History Past Medical History: Cancer, Myocardial Infarction ([place]), Pneumonia Additional Past Medical History / Comment(s): 2000 diagnosed with CLL treated with chemo successfully, 08/2014 R side back mass-diffuse large B cell lymphoma treated with chemo, 11/2016 recurrent R back mass-diffuse large B cell lymphoma with current chemo, pancytopenia, ITP, anemia, pneumonia with sepsis, 02/20/17 NSTEMI with heart cath-tx medically. Last Myocardial Infarction Date:: 02/20/17 History of Any Multi-Drug Resistant Organisms: None Reported Past Surgical History: Heart Catheterization Additional Past Surgical History / Comment(s): 02/20/17 cardiac cath, 2000 BMA, R upper back mass-needle bxs, colonoscopy-normal, power port. Past Anesthesia/Blood Transfusion Reactions: No Reported Reaction Additional Past Anesthesia/Blood Transfusion Reaction / Comment(s): Pt has received blood in the past without reaction. 02/20/17 pt had chest pain/SOB (NSTEMI) 1 day post transfusion. Past Psychological History: No Psychological Hx Reported Additional Psychological History / Comment(s): Patient's adult daughter lives with him. There are no animals in the home. He is an ongoing tobacco smoker of at least one pack per day. Alcohol only rarely-many years ago he states he drank heavier. Denies significant injection drug use or other recreational drug use at this time. No experience. No recent travels. No international travel. 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 He does not have experience. He does not have extensive international travel. His never been to the [facility] hospital. No animal exposures in the home at this time. Smoking Status: Former smoker Past Alcohol Use History: None Reported Additional Past Alcohol Use History / Comment(s): Pt started smoking in 1969 and was a ppd smoker. He states he is cutting back on how much he smokes and knows he needs to quit. He drinks alcohol rarely for many years. Past Drug Use History: None Reported - Past Family History Father Additional Family Medical History / Comment(s): Father was an alcoholic. He committed suicide. Mother Family Medical History: Cancer Additional Family Medical History / Comment(s): Mother had Breast Cancer 25 yrs ago. She is 85yrs old. Medications and Allergies Home Medications Medication Instructions Recorded Confirmed Type Vitamin B Complex 1 cap PO DAILY 12/11/16 06/23/18 History Folic Acid 0.4 mg PO DAILY 02/18/17 06/23/18 History Isosorbide Mononitrate ER [Imdur] 30 mg PO DAILY #30 tab 04/16/17 06/23/18 Rx Ascorbic Acid [Vitamin C] 500 mg PO DAILY 06/02/18 06/23/18 History Atorvastatin [Lipitor] 80 mg PO DAILY 06/02/18 06/23/18 History Acyclovir [Zovirax] 400 mg PO BID #42 tab 06/13/18 06/23/18 Rx Allopurinol [Zyloprim] 300 mg PO DAILY #21 tablet 06/13/18 06/23/18 Rx Levofloxacin [Levaquin] 500 mg PO DAILY #21 tab 06/13/18 06/23/18 Rx Ferrous Sulfate [Feosol] 325 mg PO DAILY 06/23/18 06/23/18 History Metoprolol Succinate [Toprol XL] 25 mg PO DAILY 06/23/18 06/23/18 History Allergies Allergy/AdvReac Type Severity Reaction Status Date / Time No Known Allergies Allergy Verified 06/23/18 10:49 Physical Exam Vitals: Vital Signs Temp Pulse Pulse Resp BP BP Pulse Ox 06/24/18 11:58 100.4 F H 91 24 111/56 91 L 06/24/18 08:13 98 06/24/18 07:57 20 06/24/18 07:54 100.9 F H 106 H 20 111/56 95 06/24/18 06:27 99.8 F H 104 H 16 131/60 96 06/24/18 04:52 98.6 F 100 15 97/52 100 06/24/18 04:22 98.6 F 89 15 112/56 97 06/24/18 04:12 98.5 F 87 15 119/59 06/24/18 04:00 105 H 15 06/24/18 02:04 100.8 F H 06/24/18 01:32 101.5 F H 105 H 16 105/53 97 06/24/18 01:01 102.2 F H 115 H 18 108/54 97 06/24/18 00:42 102.3 F H 113 H 18 117/55 96 06/24/18 00:00 115 H 18 06/23/18 23:46 101.5 F H 130 H 18 134/63 93 L 06/23/18 21:00 98 16 06/23/18 19:12 101.4 F H 06/23/18 19:00 100.3 F H 89 16 90/58 97 06/23/18 18:14 101.4 F H 06/23/18 18:00 101.4 F H 105 H 16 95/64 96 06/23/18 17:00 99 18 108/84 97 06/23/18 16:00 104.0 F H 107 H 18 96 06/23/18 15:00 106 H 18 106/69 94 L 06/23/18 14:38 102 H 18 106/69 94 L 06/23/18 14:00 16 113/61 95 06/23/18 13:50 100.4 F H 98 15 122/59 98 06/23/18 13:00 91 99/62 96 Intake and Output 06/23/18 06/24/18 06/24/18 22:59 06:59 14:59 Intake Total 0 360 Output Total 350 350 Balance -350 -350 360 Intake: Oral 360 Blood Product 0 Rc Irr As1 Unit 0 [id number] Output: Urine 350 350 Other: # Voids 1 Weight 86 kg PHYSICAL EXAMINATION: GENERAL: 62-year-old gentleman in no acute distress at the time HEENT: Head is atraumatic, normocephalic. Pupils equal, round. Sclera anicteric. Conjunctiva are clear. Mucous membranes of the mouth are moist. Neck is supple. There is no elevated jugular venous pressure. No carotid bruit is heard. HEART EXAMINATION: Heart S1 S2 1 systolic ejection murmur is heard CHEST EXAMINATION: Lungs reveal fine crackles to the bases bilaterally. ABDOMEN: Soft, nontender. Bowel sounds are heard. No organomegaly noted. EXTREMITIES: 2+ peripheral pulses with no evidence of peripheral edema and no calf tenderness noted. NEUROLOGIC patient is awake, alert and oriented 3. . Results 06/24/18 06:23 06/24/18 06:23 Cardiac Enzymes 06/24/18 Range/Units 06:23 AST 41 (17-59) U/L CBC 06/24/18 Range/Units 06:23 WBC 0.1 L* (3.8-10.6) k/uL RBC 2.68 L (4.30-5.90) m/uL Hgb 8.1 L D (13.0-17.5) gm/dL Hct 23.4 L (39.0-53.0) % Plt Count 15 L* (150-450) k/uL Comprehensive Metabolic Panel 06/24/18 Range/Units 06:23 Sodium 139 (137-145) mmol/L Potassium 3.9 (3.5-5.1) mmol/L Chloride 111 H (98-107) mmol/L Carbon Dioxide 19 L (22-30) mmol/L BUN 20 (9-20) mg/dL Creatinine 1.35 H (0.66-1.25) mg/dL Glucose 113 H (74-99) mg/dL Calcium 8.3 L (8.4-10.2) mg/dL AST 41 (17-59) U/L ALT 44 (21-72) U/L Alkaline Phosphatase 97 (38-126) U/L Total Protein 5.6 L (6.3-8.2) g/dL Albumin 2.9 L (3.5-5.0) g/dL Current Medications Generic Name Dose Route Start Last Admin Trade Name Freq PRN Reason Stop Dose Admin Acetaminophen 650 mg 06/23/18 23:32 06/24/18 11:55 Tylenol Tab PO 650 mg Q4HR PRN Administration Fever and/ or Pain Acyclovir 400 mg 06/23/18 21:00 06/24/18 09:30 Zovirax PO 400 mg BID TAMI Administration Albuterol/Ipratropium 3 ml 06/23/18 12:51 Duoneb 0.5 Mg-3 Mg/3 Ml Soln INHALATION RT-Q4H PRN shortness of breath Allopurinol 300 mg 06/24/18 09:00 06/24/18 09:30 Zyloprim PO 300 mg DAILY TAMI Administration Ascorbic Acid 500 mg 06/24/18 12:00 06/24/18 11:14 Vitamin C PO 500 mg 1200 TAMI Administration Atorvastatin Calcium 80 mg 06/24/18 09:00 06/24/18 09:31 Lipitor PO 80 mg DAILY TAMI Administration Ferrous Sulfate 325 mg 06/24/18 12:00 06/24/18 11:15 Feosol PO 325 mg 1200 TAMI Administration Folic Acid 0.5 mg 06/24/18 12:00 06/24/18 11:15 Folic Acid PO 0.5 mg 1200 TAMI Administration Cefepime HCl 2 gm/ Sodium 100 mls @ 200 mls/hr 06/24/18 00:00 06/24/18 11:04 Chloride IVPB 200 mls/hr Q8HR TAMI Administration Vancomycin HCl 1,500 mg/ 250 mls @ 125 mls/hr 06/24/18 06:00 06/24/18 06:17 Sodium Chloride IVPB 125 mls/hr Q16H TAMI Administration Isosorbide Mononitrate 30 mg 06/24/18 09:00 06/24/18 09:31 Imdur PO 30 mg DAILY TAMI Administration Metoprolol Succinate 25 mg 06/24/18 09:00 06/24/18 09:31 Toprol Xl PO 25 mg DAILY TAMI Administration Miscellaneous Information 1 each 06/23/18 12:51 Pneumonia Protocol Utilized PO ONCE PRN Per Protocol Intake and Output 06/23/18 06/24/18 06/24/18 22:59 06:59 14:59 Intake Total 0 360 Output Total 350 350 Balance -350 -350 360 Intake: Oral 360 Blood Product 0 Rc Irr As1 Unit 0 [id number] Output: Urine 350 350 Other: # Voids 1 Weight 86 kg 06/24/18 06:23 06/24/18 06:23 EKG Interpretations (text) EKG shows a normal sinus rhythm with an incomplete right bundle branch block pattern and nonspecific ST-T wave changes Assessment and Plan Plan: Assessment and plan #1 febrile neutropenia, but of sepsis, possible pneumonia #2 AML with recent chemo 10 days ago #3 status post reaction following platelet transfusion #4 abnormal troponin, likely secondary to sepsis #5 coronary artery disease, patient underwent a cardiac catheterization in January 2017 which revealed total occlusion of the RCA, disease in the circumflex and moderate disease in the LAD medical therapy advised at that time. #6 hyperlipidemia #7 chronic tobacco use Plan Patient's abnormality in troponin is likely secondary to sepsis, patient had a temperature of 104 and was quite hypotensive on admission here. He had an echocardiogram with Doppler study performed in 2016 which revealed an ejection fraction of 55-60%, mild to moderate mitral regurgitation. We will repeat an e cho and obtain 2 subsequent troponins. Patient is not currently on aspirin because of his low platelets. We'll continue Imdur, metoprolol. Further recommendations to follow. DNP note has been reviewed, I agree with a documented findings and plan of care. Patient was seen and examined.
--- NOTE | 2018-06-24 13:20 | XR ---
EXAMINATION TYPE: XR chest 2V DATE OF EXAM: 06/24/2018 COMPARISON: Chest x-ray from yesterday. CT June 05, 2018. HISTORY: Pneumonia progress study. TECHNIQUE: Frontal and lateral views of the chest are obtained. FINDINGS: There is stable right internal jugular Mediport catheter. There is patchy chronic parenchym al change with improving aeration right upper lung. There is no new suspicious focal air space opacit y or pneumothorax seen. There is new small pleural effusion on lateral view suspected left-sided with blunting of posterior costophrenic angle. The cardiac silhouette size remains within normal limits. The osseous structures are intact. Right lower lobe spiculated nodule redemonstrated. IMPRESSION: Resolving right upper lobe infiltrate. New small left pleural effusion on background chr onic emphysematous change.
--- NOTE | 2018-06-24 17:29 | PN ---
PROGRESS NOTE SUBJECTIVE: This is a 62-year-old white male with right upper lobe pneumonia with immune suppression. Remains on vancomycin and cefepime. Infectious disease consult is pending. Blood cultures have been ordered. Cardiology and Pulmonary have seen him. He has pancytopenia. With his blood transfusion his hemoglobin is up today, but he is still spiking fevers and tachycardic. White count is 0.1, hemoglobin 8.1, platelets 15. ASSESSMENT: 1. Community-acquired pneumonia. 2. Sepsis. 3. Hyper neutropenia. 4. AML. 5. Thrombocytopenia with platelet reaction. 6. Elevated troponin secondary to sepsis. 7. Medical therapy for coronary artery disease. 8. Dyslipidemia. 9. Nicotine addiction. Continue with broad-spectrum antibiotics. Await infectious disease consult. Cardiology has agreed with further treatment. Please see further orders. MMODL / IJN: [id number] /
--- NOTE | 2018-06-24 18:51 | ECHOF ---
Referral Reason:abn trop MEASUREMENTS -------- HEIGHT: 180.3 cm WEIGHT: 85.7 kg BP: 111/56 IVSd: 1.0 cm (0.6 - 1.1) LVIDd: 5.0 cm (3.9 - 5.3) LVPWd: 1.2 cm (0.6 - 1.1) IVSs: 1.4 cm LVIDs: 4.1 cm LVPWs: 1.3 cm LAESV Index (A-L): 22.21 ml/m Ao Diam: 3.3 cm (2.0 - 3.7) AV Cusp: 2.7 cm (1.5 - 2.6) LA Diam: 3.1 cm (2.7 - 3.8) MV EXCURSION: 21.518 mm (> 18.000) MV EF SLOPE: 137 mm/s (70 - 150) EPSS: 1.4 cm MV E Tevin: 0.88 m/s MV DecT: 178 ms MV A Tevin: 1.09 m/s MV E/A Ratio: 0.81 RAP: 5.00 mmHg RVSP: 12.90 mmHg FINDINGS -------- Sinus rhythm. This was a technically good study. The left ventricular size is normal. There is mild concentric left ventricular hypertrophy. Overa ll left ventricular systolic function is moderately impaired with, an EF between 35 - 40 %. Basal i nferior LV wall motion is hypokinetic. Basal inferoseptal LV wall motion is hypokinetic. Mid in ferior LV wall motion is hypokinetic. Basal inferolateral appears hypokinetic. The right ventricle is normal in size. Normal LA size by volume 22+/-6 ml/m2. The right atrial size is normal. The aortic valve is trileaflet and appears structurally normal. The mitral valve leaflets are mildly thickened. There is trace mitral regurgitation. Thickened ch ordae Trace tricuspid regurgitation present. The right ventricular systolic pressure, as measured by Dopp ler, is 12.90mmHg. There is no pulmonic regurgitation present. The aortic root size is normal. Normal inferior vena cava with normal inspiratory collapse consistent with estimated right atrial pre ssure of 5 mmHg. There is no pericardial effusion. CONCLUSIONS -------- 1. Sinus rhythm. 2. This was a technically good study. 3. The left ventricular size is normal. 4. There is mild concentric left ventricular hypertrophy. 5. Overall left ventricular systolic function is moderately impaired with, an EF between 35 - 40 %. 6. Basal inferoseptal LV wall motion is hypokinetic. 7. Basal inferolateral appears hypokinetic. 8. The right ventricle is normal in size. 9. Normal LA size by volume 22+/-6 ml/m2. 10. The right atrial size is normal. 11. The aortic valve is trileaflet and appears structurally normal. 12. The mitral valve leaflets are mildly thickened. 13. There is trace mitral regurgitation. 14. Thickened chordae 15. Trace tricuspid regurgitation present. 16. The right ventricular systolic pressure, as measured by Doppler, is 12.90mmHg. 17. There is no pulmonic regurgitation present. 18. The aortic root size is normal. 19. Normal inferior vena cava with normal inspiratory collapse consistent with estimated right atrial pressure of 5 mmHg. 20. There is no pericardial effusion. MANAGEMENT EXPERT: Rachel Estrada RDCS
[2018-06-25] MEDS: CEFEPIME 2 GM in SODIUM CHLORIDE 0.9% 100 ML IVPB SCH ×4 (00:30→22:55)
--- NOTE | 2018-06-25 00:59 | P.CONS ---
History of Present Illness - Reason for Consult Consult date: 06/24/18 febrile neutropenia, pancytopenia. AML - History of Present Illness Mr. Nevarez has a history of chronic lymphocytic leukemia/well-differentiated lymphoma diagnosed in December 2000. He initially received four cycles of flu darabine and then developed hemolytic anemia and ITP. He responded well to prednisone. He did not require treatment for many years. He was seen in 2008 for leg pain with a negative w/u. He was seen in consult at [facility] in 06/04 , when admitted for fever,and pancytopenia. His w/u including bone marrow were negative for any evidence of malignancy. He was found to have infiltrates on CT chest and improved with broad spectrum antibiotics. He was supposed to f/u in 06/04 but did not do so. He had noted a small nodule on his right mid back around his hospital stay which he felt was a cyst. This increased in size considerably, and developed reddish blue discoloration. 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 Since late 09/04, he had also noted a mass developing in his right armpit. Additional staging with PET and bone marrow did not reveal any marrow involvement. He did appear to have at least stage III disease, with a retrocrural node involved. There was also questionable lung parenchymal involvement ( which would be stage IV) He was started on R-CHOP and is s/p 6 cycles, completing those in late 02/04. He did not f/u in the office after 03/06. He developed a new lump on his rt mid back around 11/06. This progressed in size, leading him to see Dr Segura. He had a needle core biopsy on 12/17/16, revealing a diffuse large B cell Non Hodgkin's Lymphoma. Testing for double hit is pending PET revealed uptake in the tonsils, neck nodes and presternal soft tissue, in addition to the skin. He was started on salvage chemo with R-ICE on 01/07/17. PET scan after cycle 2 showed an excellent response, with mild residual uptake with SUV 2.7 only in the rt upper bck nodule. He started cycle 3 on 02/19/17. After D 1, he suffered a AR, and chemo was stopped. He was found on cath to have complete RCA occlusion with collaterals, and a tight stenosis in the origin of the circumflex that was technically difficult to stent. He was not felt to be a candidate for surgery at this point, based on extent of disease. he was thus discharged on medical management. He had also developed signifcant anemia, which was felt to be contributing. He resumed chemo on 03/17/17, with dose reduction. He tolerated it well, with no recurrence of cardiac symptoms. as he had had only 1 day of C3, he had an additional cycle ( total 4 effectively), completing that on 04/17/17. He was then referred to [facility]. He was somewhat undecided about the procedure after discussing it. He was ultimately agreeable, but it was rec ommended he have his CAD managed prior to the procedure. He was referred to interventional Cardiology at the [facility], and saw Dr Patel on 07/27/17. He had PTCA with successful stenting of LAD and left circumflex on 08/31/17. He was referred back to BMT, and was seen in 10/07. He ultimately decided not to have the procedure. The patient was admitted last month, with complains of weakness, and shortness of breath with symptoms developing for a few days. He was found to have severe pancytopenia. He underwent a bone marrow aspiration biopsy which revealed AML, likely secondary to prior chemotherapy. He had induction chemotherapy with high-dose cytarabine, completing that on 06/12/18. He was then discharged on prophylactic antibiotics, and close office follow-up with blood draws and transfusions when necessary. The patient received platelet transfusion on 06/22/18. On 06/23/18, he noted a fever up to 102+. He also noted some mild chills and sweats. He came to the emergency room, where labs showed pancytopenia with wbc 0.4. he did not have any specific localizing symptoms. he was then admitted for further management. Review of Systems Constitutional: Reports fever, Reports poor appetite, Reports sweats, Reports weakness Eyes: denies blurred vision, denies pain Ears: deny: decreased hearing, ear discharge, earache, tinnitus Ears, nose, mouth and throat: Denies headache, Denies sore throat Cardiovascular: Reports decreased exercise tolerance Respiratory: Reports dyspnea Gastrointestinal: Denies abdominal pain, Denies diarrhea, Denies nausea, Denies vomiting Genitourinary: Reports as per HPI Musculoskeletal: Reports muscle weakness Integumentary: Denies pruritus, Denies rash Neurological: Reports weakness Psychiatric: Denies anxiety, Denies depression Endocrine: Reports fatigue Hematologic/Lymphatic: Reports as per HPI Past Medical History Past Medical History: Cancer, Myocardial Infarction (AR), Pneumonia Additional Past Medical History / Comment(s): 2000 diagnosed with CLL treated with chemo successfully, 08/2014 R side back mass-diffuse large B cell lymphoma treated with chemo, 11/2016 recurrent R back mass-diffuse large B cell lymphoma with current chemo, pancytopenia, ITP, anemia, pneumonia with sepsis, 02/20/17 NSTEMI with heart cath-tx medically. Last Myocardial Infarction Date:: 02/20/17 History of Any Multi-Drug Resistant Organisms: None Reported Past Surgical History: Heart Catheterization Additional Past Surgical History / Comment(s): 02/20/17 cardiac cath, 2000 BMA, R upper back mass-needle bxs, colonoscopy-normal, power port. Past Anesthesia/Blood Transfusion Reactions: No Reported Reaction Additional Past Anesthesia/Blood Transfusion Reaction / Comm: Pt has received blood in the past without reaction. 02/20/17 pt had chest pain/SOB (NSTEMI) 1 day post transfusion. Past Psychological History: No Psychological Hx Reported Additional Psychological History / Comment(s): Patient's adult daughter lives with him. There are no animals in the home. He is an ongoing tobacco smoker of at least one pack per day. Alcohol only rarely-many years ago he states he drank heavier. Denies significant injection drug use or other recreational drug use at this time. No experience. No recent travels. No international travel. 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 He does not have experience. He does not have extensive international travel. His never been to the [facility]. No animal exposures in the home at this time. Smoking Status: Former smoker Past Alcohol Use History: None Reported Additional Past Alcohol Use History / Comment(s): Pt started smoking in 1969 and was a ppd smoker. He states he is cutting back on how much he smokes and knows he needs to quit. He drinks alcohol rarely for many years. Past Drug Use History: None Reported - Past Family History Father Additional Family Medical History / Comment(s): Father was an alcoholic. He committed suicide. Mother Family Medical History: Cancer Additional Family Medical History / Comment(s): Mother had Breast Cancer 25 yrs ago. She is 85yrs old. Medications and Allergies Home Medications Medication Instructions Recorded Confirmed Type Vitamin B Complex 1 cap PO DAILY 12/11/16 06/23/18 History Folic Acid 0.4 mg PO DAILY 02/18/17 06/23/18 History Isosorbide Mononitrate ER [Imdur] 30 mg PO DAILY #30 tab 04/16/17 06/23/18 Rx Ascorbic Acid [Vitamin C] 500 mg PO DAILY 06/02/18 06/23/18 History Atorvastatin [Lipitor] 80 mg PO DAILY 06/02/18 06/23/18 History Acyclovir [Zovirax] 400 mg PO BID #42 tab 06/13/18 06/23/18 Rx Allopurinol [Zyloprim] 300 mg PO DAILY #21 tablet 06/13/18 06/23/18 Rx Levofloxacin [Levaquin] 500 mg PO DAILY #21 tab 06/13/18 06/23/18 Rx Ferrous Sulfate [Feosol] 325 mg PO DAILY 06/23/18 06/23/18 History Metoprolol Succinate [Toprol XL] 25 mg PO DAILY 06/23/18 06/23/18 History Allergies Allergy/AdvReac Type Severity Reaction Status Date / Time No Known Allergies Allergy Verified 06/23/18 10:49 Physical Exam Vitals: Vital Signs Temp Pulse Pulse Resp BP BP Pulse Ox 06/25/18 00:20 101 H 06/25/18 00:18 100.1 F H 101 H 20 102/55 95 06/24/18 20:00 103.5 F H 120 H 22 130/61 91 L 06/24/18 16:00 99.3 F 103 H 20 122/59 06/24/18 14:10 98.3 F 06/24/18 13:38 98.1 F 06/24/18 13:02 99.7 F H 06/24/18 12:51 96 06/24/18 12:21 24 06/24/18 11:58 100.4 F H 91 24 111/56 91 L 06/24/18 10:30 101.3 F H 06/24/18 08:13 98 06/24/18 08:00 106 H 20 06/24/18 07:57 20 06/24/18 07:54 100.9 F H 106 H 20 111/56 95 06/24/18 06:27 99.8 F H 104 H 16 131/60 96 06/24/18 04:52 98.6 F 100 15 97/52 100 06/24/18 04:22 98.6 F 89 15 112/56 97 06/24/18 04:12 98.5 F 87 15 119/59 06/24/18 04:00 105 H 15 06/24/18 02:04 100.8 F H 06/24/18 01:32 101.5 F H 105 H 16 105/53 97 06/24/18 01:01 102.2 F H 115 H 18 108/54 97 06/24/18 00:42 102.3 F H 113 H 18 117/55 96 Intake and Output 06/24/18 06/24/18 06/25/18 14:59 22:59 06:59 Intake Total 360 Output Total 200 Balance 360 -200 Intake: Oral 360 Output: Urine 200 Other: Voiding Method Urinal Urinal Urinal # Voids 1 Weight 86 kg - Constitutional General appearance: no acute distress - EENT Eyes: EOMI, PERRLA ENT: hearing grossly normal, normal oropharynx - Neck Neck: no lymphadenopathy Thyroid: bilateral: normal size - Respiratory Respiratory: bilateral: CTA - Cardiovascular Rhythm: regular Heart sounds: normal: S1, S2 - Gastrointestinal General gastrointestinal: normal bowel sounds, soft - Integumentary Integumentary: normal - Neurologic Neurologic: CNII-XII intact - Musculoskeletal Musculoskeletal: generalized weakness, strength equal bilaterally - Psychiatric Psychiatric: A&O x's 3, appropriate affect Results Results: ECHO report reviewed CBC & Chem 7: 06/24/18 06:23 06/24/18 06:23 Labs: Abnormal Lab Results - Last 24 Hours (Table) 06/23/18 06/24/18 06/24/18 Range/Units 10:22 06:23 06:23 WBC 0.1 L* (3.8-10.6) k/uL RBC 2.68 L (4.30-5.90) m/uL Hgb 8.1 L D (13.0-17.5) gm/dL Hct 23.4 L (39.0-53.0) % Plt Count 15 L* (150-450) k/uL Chloride 111 H (98-107) mmol/L Carbon Dioxide 19 L (22-30) mmol/L Creatinine 1.35 H (0.66-1.25) mg/dL Glucose 113 H (74-99) mg/dL Calcium 8.3 L (8.4-10.2) mg/dL Troponin I (0.000-0.034) ng/mL Total Protein 5.6 L (6.3-8.2) g/dL Albumin 2.9 L (3.5-5.0) g/dL Crossmatch See Detail 06/24/18 06/24/18 Range/Units 13:58 21:22 WBC (3.8-10.6) k/uL RBC (4.30-5.90) m/uL Hgb (13.0-17.5) gm/dL Hct (39.0-53.0) % Plt Count (150-450) k/uL Chloride (98-107) mmol/L Carbon Dioxide (22-30) mmol/L Creatinine (0.66-1.25) mg/dL Glucose (74-99) mg/dL Calcium (8.4-10.2) mg/dL Troponin I 0.346 H* 0.304 H* (0.000-0.034) ng/mL Total Protein (6.3-8.2) g/dL Albumin (3.5-5.0) g/dL Crossmatch Microbiology - Last 24 Hours (Table) 06/23/18 10:22 Blood Culture - Preliminary Blood No Growth after 24 hours Chest x-ray: report reviewed Assessment and Plan (1) Neutropenia with fever Narrative/Plan: The patient is presenting with significant fever, in the setting of severe neutropenia, due to underlying AML, and subsequent chemotherapy. The case was discussed in detail with the ER physician. The patient had no specific localizing signs. It was recommended that he be started on broad-spectrum antibiotics with vancomycin and cefepime. ID consult has been requested. Chest x-ray showed right lung infiltrate as a possible source, but this was actually improved from previous x-ray last admission. Cultures are pending at this time. Growth factors are not recommended at this time, as the patient has had induction chemotherapy and does not have proven remission yet. Normally it would be anticipated that WBC would recover in the next 3-4 days. Current Visit: Yes Status: Acute Code(s): D70.9 - NEUTROPENIA, UNSPECIFIED; R50.81 - FEVER PRESENTING WITH CONDITIONS CLASSIFIED ELSEWHERE SNOMED Code(s): 321112068 (2) Pancytopenia due to antineoplastic chemotherapy Narrative/Plan: Due to underlying AML, and then subsequently induction chemotherapy. She had presented with a hemoglobin of 6.1. One unit of PRBC ordered with appropriate increase in hemoglobin to about 7. Continue to monitor and transfuse as needed to keep hemoglobin above 7, and platelets above 10. He received only irradiated blood products. Current Visit: Yes Status: Acute Code(s): D61.810 - ANTINEOPLASTIC CHEMOTHER APY INDUCED PANCYTOPENIA; T45.1X5A - ADVERSE EFFECT OF ANTINEOPLASTIC AND IMMUNOSUP DRUGS, INIT SNOMED Code(s): 782194897174708 (3) Acute myelogenous leukemia Narrative/Plan: Diagnostic and therapeutic circumstances as described. Once count recovery has occurred, bone marrow aspiration biopsy will be repeated to check for induction remission. If the patient does achieve remission, he'll be referred for bone marrow transplant. Current Visit: Yes Status: Acute Code(s): C92.00 - ACUTE MYELOBLASTIC LEUKEMIA, NOT HAVING ACHIEVED REMISSION SNOMED Code(s): 54928670 (4) Elevated troponin Narrative/Plan: The patient has known coronary artery disease and history of AR. She is status post stent, placed in 09/07. Currently aspirin and Plavix had to be discontinued because of low platelets. Risk-benefit has been discussed in detail with him and his daughter. The patient had mild elevation of troponin this admission. He has no new symptoms. Cardiology has been consulted to follow. Patient was actually smoking up to 06/08 but has quit since his prior admission Current Visit: No Status: Acute Code(s): R79.89 - OTHER SPECIFIED ABNORMAL FINDINGS OF BLOOD CHEMISTRY SNOMED Code(s): 777298977 Plan: Defer to the admitting service and other consultants for management of his other medical problems
[2018-06-25] MEDS: ACETAMINOPHEN TAB 325 MG TAB PO PRN ×4 (01:25→19:42)
--- NOTE | 2018-06-25 02:41 | CONS ---
CONSULTATION HISTORY: Viraj Nevarez is a 62-year-old male who has a history all acute myeloid leukemia. He finished his first round of chemotherapy 10 days prior. He had a blood transfusion at [facility]. He started to feel wobbly, was lightheaded, had decreased oral intake. He had an occasional cough and some shortness of breath. He denied any chest pain. He had a fever up to 103 degrees Fahrenheit. Subsequently, he was seen in the ER at [facility] and admitted for further evaluation and management. PAST MEDICAL HISTORY: Positive for acute myeloid leukemia, previous CLL, previous large B-cell lymphoma, history of coronary artery disease status post NM, history of cardiac cath. No clear history of COPD. SOCIAL HISTORY: Patient is a former smoker. Does not drink alcohol excessively. FAMILY HISTORY: Positive for depression in his father who committed suicide. History of breast cancer in his mother. MEDICATIONS: Prior to admission were: 1. Ferrous sulfate. 2. Metoprolol. 3. Levaquin. 4. Vitamin B complex. 5. Imdur. 6. Folic acid. 7. Lipitor. 8. Vitamin C. 9. Zyloprim. 10.Zovirax. REVIEW OF SYSTEMS: Noncontributory. PHYSICAL EXAMINATION: Blood pressure is 130/61, respiratory rate 22, pulse rate of 120, temperature 103.5 degrees Fahrenheit, O2 saturation on room air is 91%. HEENT reveals pupils are equal. Chest reveals decreased breath sounds. Mild prolonged expiration. Occasional rhonchi. Cardiovascular system reveals tachycardia, S1, S2. No S3. Short systolic murmur. Abdomen is soft. There is no pedal edema. White count is 0.1, hemoglobin of 8.1, platelet count of 15,000. Sodium 139, potassium 3.9, chloride 111, bicarb 19. Troponin 0.346. Albumin of 2.9, total protein of 5.6. Influenza A and B are negative. DIAGNOSTIC STUDIES: Chest x-ray shows right upper lobe infiltrate. IMPRESSION: 1. Neutropenic sepsis. 2. Pancytopenia. 3. Right upper lobe pneumonia. 4. Acute myocardial infarction. 5. Acute myelogenous leukemia. PLAN: Continue cefepime, bronchodilators, acyclovir, beta rafael, and IV fluids. The patient's prognosis is guarded. We will follow him closely during his hospital stay. I appreciate the opportunity to participate in his care. IASCC / ALLIN: [id number] /
[2018-06-25] MEDS: ISOSORBIDE MONONITRATE ER 30 MG TAB.ER.24H PO SCH (07:42)
[2018-06-25] MEDS: ASCORBIC ACID 500 MG TAB PO SCH (07:42)
[2018-06-25] MEDS: FOLIC ACID 1 MG TAB PO SCH (07:42)
[2018-06-25] MEDS: METOPROLOL SUCCINATE (ER) 25 MG TAB.ER.24H PO SCH (07:42)
[2018-06-25] MEDS: ALLOPURINOL 300 MG TAB PO SCH (07:42)
[2018-06-25] MEDS: FERROUS SULFATE 325 MG TAB PO SCH (07:42)
[2018-06-25] MEDS: ATORVASTATIN 80 MG TAB PO SCH (07:42)
[2018-06-25] MEDS: ACYCLOVIR 200 MG CAP PO SCH ×2 (07:43→21:36)
[2018-06-25] MEDS ORDERED: VANCOMYCIN TROUGH DUE 1 EACH MISC MISCELLANE ONE (13:00)
--- NOTE | 2018-06-25 13:31 | PN ---
PROGRESS NOTE DATE OF SERVICE: 06/25/2018 The patient is a 62-year-old male who is seen lying in bed, sleeping but arousable. Denies any shortness of breath. Denies chest pain. Patient with low-grade temp 99.1. Vital signs are stable. The patient is in no acute distress. ON PHYSICAL EXAM: VITAL SIGNS: Temp is 99.1. Heart rate is 104. Respiratory rate is 18. Blood pressure is 108/55. O2 saturation 97% on room air. HEENT. Head is normocephalic, atraumatic. Neck is supple. Trachea is midline. LUNGS: With decreased breath sounds and a coarse wheeze on end expiration. HEART: S1, S2 heard, intermittently tachycardic. ABDOMEN: Soft. Bowel sounds are heard. EXTREMITIES: With no edema. NEUROLOGIC: Patient is awake and alert. LABS: White count is 0.1, hemoglobin is 8.1, hematocrit 23.4 with 15,000 platelets. Sodium is 139, potassium is 3.9, chloride 111, CO2 is 19. Anion gap is 9. BUN is 20, creatinine is 1.35. Glucose is 113. Calcium is 8.3. Total bilirubin 1.2. AST is 41, ALT is 44, alkaline phosphatase is 97. Total protein is 5.6. Albumin is 2.9. Please note, these labs are from 06/24. New labs today just show a troponin of 0.258, which is trending down. No new imaging to review. IMPRESSION: 1. Neutropenic sepsis. 2. Pancytopenia. 3. Right upper lobe pneumonia. 4. Acute myocardial infarction. 5. Acute myelogenous leukemia. PLAN: Continue current medications, which have been reviewed. Continue IV antibiotics per Infectious Disease. We will continue to follow patient closely with you making further changes as necessary. MMODL / IJN: [id number] / TAYLOR
--- NOTE | 2018-06-25 13:46 | PN ---
PROGRESS NOTE SUBJECTIVE: A 62-year-old white male with acute AML and right upper lobe pneumonia, severe pancytopenia. Labs today are pending. His last white count 0.1, hemoglobin is 8.1, platelet count 15. BUN is 20, creatinine 1.35. He states he is feeling better with IV antibiotics and since he had a blood transfusion. CARDIOVASCULAR: S1, S2. LUNGS: Show decreased breath sounds x4. HEMATOLOGY: Negative Homans. Generally he looks weak and fatigue. ASSESSMENT: 1. AML. 2. Right upper lobe pneumonia. 3. Pancytopenia. 4. Leukopenia. Await for hematology's recommendation. Infectious Disease remains on vancomycin and cefepime. The patient extremely due to acute AML, which is apparently resistant to chemo. Possible blood transfusion will be needed again and continue current care with IV antibiotics as he is slowly improving. We will discuss a Hematology for long-term AML care and treatment of pancytopenia. MMODL / IJN: [id number] /
[2018-06-25 14:23] LABS: Anisocytosis Slight; MCH 29.2 pg (25.0-35.0); MCHC 34.6 g/dL (31.0-37.0); MCV 84.4 fL (80.0-100.0); Mean Platelet Volume 9.9; RBC 2.16 m/uL (4.30-5.90); RDW 16.3 % (11.5-15.5)
[2018-06-25 14:25] LABS: WBC 0.2 k/uL (3.8-10.6)
[2018-06-25 14:33] LABS: HCT 18.3 % (39.0-53.0); HGB 6.3 gm/dL (13.0-17.5)
[2018-06-25 14:46] LABS: Platelet Count 6 k/uL (150-450); Poikilocytosis (M) Present
[2018-06-25 15:26] LABS: Albumin 2.2 g/dL (3.5-5.0); Calcium 7.7 mg/dL (8.4-10.2); Potassium 3.4 mmol/L (3.5-5.1); Total Bilirubin 1.3 mg/dL (0.2-1.3); Total Protein 4.4 g/dL (6.3-8.2)
[2018-06-25 15:30] LABS: HGB 8.1 gm/dL (13.0-17.5)
[2018-06-25] MEDS: VANCOMYCIN 1,500 MG in SODIUM CHLORIDE 0.9% 250 ML IVPB SCH ×2 (17:49→21:48)
--- NOTE | 2018-06-25 23:11 | P.PN ---
Subjective Progress Note Date: 06/25/18 Principal diagnosis: AML Platlets 6 hemoglobin 6.3 today. Low Grade Fevers after tylenol. Transfusions ordered with irradiated blood and platlets. Mckeon CUltures are Pending and Neg ative at 24 hours, No active bleeding noted. Cefepime and Vancomycin and Infectious disease following Objective - Vital Signs Vital signs: Vital Signs Temp 99.8 F H 06/25/18 17:40 Pulse 91 06/25/18 17:40 Resp 18 06/25/18 17:40 BP 117/58 06/25/18 17:40 Pulse Ox 95 06/25/18 17:40 Intake & Output 06/24/18 06/25/18 06/25/18 18:59 06:59 18:59 Intake Total 360 700 Output Total 575 450 Balance 360 -575 250 Weight 86 kg 89 kg Intake: Oral 360 700 Blood Product 0 Rc Irr As3 Unit 0 [id number] Output: Urine 575 450 Other: Voiding Method Urinal Urinal Urinal # Voids 1 # Bowel Movements 2 - Exam - EENT Eyes: EOMI, PERRLA ENT: hearing grossly normal, normal oropharynx - Neck Neck: no lymphadenopathy Thyroid: bilateral: normal size - Respiratory Respiratory: bilateral: CTA - Cardiovascular Rhythm: regular Heart sounds: normal: S1, S2 - Gastrointestinal General gastrointestinal: normal bowel sounds, soft - Integumentary Integumentary: normal - Neurologic Neurologic: CNII-XII intact - Musculoskeletal Musculoskeletal: generalized weakness, strength equal bilaterally - Psychiatric Psychiatric: A&O x's 3, appropriate affect - Labs CBC & Chem 7: 06/25/18 14:04 06/25/18 14:04 Labs: Abnormal Lab Results - Last 24 Hours (Table) 06/23/18 06/24/18 06/24/18 Range/Units 10:22 06:23 21:22 WBC (3.8-10.6) k/uL RBC (4.30-5.90) m/uL Hgb 8.1 L D (13.0-17.5) gm/dL Hct (39.0-53.0) % RDW (11.5-15.5) % Plt Count (150-450) k/uL Potassium (3.5-5.1) mmol/L Chloride (98-107) mmol/L Carbon Dioxide (22-30) mmol/L BUN (9-20) mg/dL Creatinine (0.66-1.25) mg/dL Glucose (74-99) mg/dL Calcium (8.4-10.2) mg/dL AST (17-59) U/L Alkaline Phosphatase (38-126) U/L Troponin I 0.304 H* (0.000-0.034) ng/mL Total Protein (6.3-8.2) g/dL Albumin (3.5-5.0) g/dL Crossmatch See Detail 06/25/18 06/25/18 06/25/18 Range/Units 02:44 14:04 14:04 WBC 0.2 L* (3.8-10.6) k/uL RBC 2.16 L (4.30-5.90) m/uL Hgb 6.3 L* D (13.0-17.5) gm/dL Hct 18.3 L* (39.0-53.0) % RDW 16.3 H (11.5-15.5) % Plt Count 6 L* D (150-450) k/uL Potassium 3.4 L (3.5-5.1) mmol/L Chloride 114 H (98-107) mmol/L Carbon Dioxide 19 L (22-30) mmol/L BUN 24 H (9-20) mg/dL Creatinine 1.29 H (0.66-1.25) mg/dL Glucose 145 H (74-99) mg/dL Calcium 7.7 L (8.4-10.2) mg/dL AST 80 H (17-59) U/L Alkaline Phosphatase 133 H (38-126) U/L Troponin I 0.258 H* (0.000-0.034) ng/mL Total Protein 4.4 L (6.3-8.2) g/dL Albumin 2.2 L (3.5-5.0) g/dL Crossmatch Microbiology - Last 24 Hours (Table) 06/24/18 11:54 Blood Culture - Preliminary Blood No Growth after 24 hours 06/24/18 11:48 Blood Culture - Preliminary Blood No Growth after 24 hours 06/23/18 10:22 Blood Culture - Preliminary Blood No Growth after 48 hours Assessment and Plan Plan: Chest x-ray: report reviewed Assessment and Plan (1) Neutropenia with fever Narrative/Plan: - No specific localizing signs for pinpoint of infection. - Treatment with Broad Spectrum antibiotics is continued and mckeon cultures negative at 24 hours - Vancomycin and cefepime. Infectious Disease following and management - Continuation of Prophylaxic antiviral and antifungal, patient was on both as well as prophylaxis antibiotics prior to admission - Chest Imaging X-Ray Revealed right lung infiltrate as a possible source, but this was actually improved from previous x-ray last admission. - Growth factors are not recommended at this time, as the patient has had induc tion chemotherapy and does not have proven remission yet. Normally it would be anticipated that WBC would recover in the next 3-4 days. Current Visit: Yes Status: Acute Code(s): D70.9 - NEUTROPENIA, UNSPECIFIED; R50.81 - FEVER PRESENTING WITH CONDITIONS CLASSIFIED ELSEWHERE SNOMED Code(s): 525281220 (2) Pancytopenia due to antineoplastic chemotherapy Narrative/Plan - Secondary to AML, and induction chemotherapy. - Hemoglobin 6.3 today One unit of PRBC ordered with appropriate increase in hemoglobin to about 7. - Platlets are 6 today Continue to monitor and transfuse as needed to keep hemoglobin above 7, and platelets above 10. - IRRADIATED BLOOD PRODUCTS ONLY Current Visit: Yes Status: Acute Code(s): D61.810 - ANTINEOPLASTIC CHEMOTHERAPY INDUCED PANCYTOPENIA; T45.1X5A - ADVERSE EFFECT OF ANTINEOPLASTIC AND IMMUNOSUP DRUGS, INIT SNOMED Code(s): 854986611770013 (3) Acute myelogenous leukemia Narrative/Plan: - Once count recovery has occurred, bone marrow aspiration biopsy will be repeated to check for induction remission. - If the patient does achieve remission, he'll be referred for bone marrow transplant. Otherwise plan for re-induction Current Visit: Yes Status: Acute Code(s): C92.00 - ACUTE MYELOBLASTIC LEUKEMIA, NOT HAVING ACHIEVED REMISSION SNOMED Code(s): 71804757 (4) Elevated troponin Narrative/Plan: - The patient has known coronary artery disease and history of PR. - She is status post stent, placed in 09/07. Currently aspirin and Plavix had to be discontinued because of low platelets. - Risk-benefit has been discussed in detail by Dr. Andrade and patient - Cardiology Following - Smoking Cessation Re-mediation, Patient was actually smoking up to 06/08 but has quit since his prior admission Current Visit: No Status: Acute Code(s): R79.89 - OTHER SPECIFIED ABNORMAL FINDINGS OF BLOOD CHEMISTRY SNOMED Code(s): 763980630 Physician Attestation: I have completed the full history and physical and devloped the above imporession and plan, agree with dictation by Rosa Worthy NP, Dictated as a scribe
[2018-06-26] MEDS: ACETAMINOPHEN TAB 325 MG TAB PO PRN ×2 (05:38→16:05)
[2018-06-26 07:57] LABS: Anisocytosis Slight; HCT 21.6 % (39.0-53.0); HGB 7.6 gm/dL (13.0-17.5); MCH 29.5 pg (25.0-35.0); MCHC 35.1 g/dL (31.0-37.0); Mean Platelet Volume 9.9; Poikilocytosis Slight; RBC 2.57 m/uL (4.30-5.90); RDW 17.1 % (11.5-15.5)
[2018-06-26 08:00] LABS: Platelet Count 14 k/uL (150-450); WBC 0.2 k/uL (3.8-10.6)
[2018-06-26] MEDS: ISOSORBIDE MONONITRATE ER 30 MG TAB.ER.24H PO SCH (08:02)
[2018-06-26] MEDS: METOPROLOL SUCCINATE (ER) 25 MG TAB.ER.24H PO SCH (08:02)
[2018-06-26] MEDS: ALLOPURINOL 300 MG TAB PO SCH (08:02)
[2018-06-26] MEDS: ATORVASTATIN 80 MG TAB PO SCH (08:02)
[2018-06-26] MEDS: ACYCLOVIR 200 MG CAP PO SCH ×2 (08:02→21:00)
[2018-06-26 08:33] LABS: Albumin 2.3 g/dL (3.5-5.0); Calcium 7.9 mg/dL (8.4-10.2); Potassium 3.5 mmol/L (3.5-5.1); Total Bilirubin 1.7 mg/dL (0.2-1.3); Total Protein 4.7 g/dL (6.3-8.2)
[2018-06-26] MEDS: CEFEPIME 2 GM in SODIUM CHLORIDE 0.9% 100 ML IVPB SCH ×2 (10:03→16:05)
[2018-06-26] MEDS: FERROUS SULFATE 325 MG TAB PO SCH (11:10)
[2018-06-26] MEDS: ASCORBIC ACID 500 MG TAB PO SCH (11:10)
[2018-06-26] MEDS: FOLIC ACID 1 MG TAB PO SCH (11:10)
--- NOTE | 2018-06-26 12:19 | PN ---
PROGRESS NOTE He was seen on 06/26/2018. He has been hemodynamically stable, not requiring any pressors. He starting to feel significantly better. His last temperature was 99.1, and the temperature above 100 degrees Fahrenheit at 101 was last night at 8 pm. On physical examination his respiratory rate is 18, pulse rate 99, blood pressure 120/59, O2 SAT on 2 L is 94%. HEENT is unremarkable. Chest reveals occasional rhonchi. Cardiovascular system reveals S1, S2. Abdomen is soft. There is no pedal edema. Blood cultures have been negative so far. White count is 0.2000, hemoglobin is 7.6, platelet 14,000. Sodium 140, potassium 3.5, chloride 110, bicarb 20, BUN 25, creatinine of 1.14. Total bilirubin is 1.7, ALT 223. IMPRESSION: 1. Neutropenic sepsis with systemic inflammatory response. 2. Acute myelogenous leukemia. 3. Right upper lobe pneumonia. 4. Acute myocardial infarction. Continue IV antibiotics per ID. Continue IV fluids. Increase activity level. His prognosis fair. MMODL / IJN: [id number] /
[2018-06-26 12:37] LABS: Rouleaux Present
[2018-06-26] MEDS: VANCOMYCIN 1,500 MG in SODIUM CHLORIDE 0.9% 250 ML IVPB SCH (21:00)
[2018-06-27] MEDS: CEFEPIME 2 GM in SODIUM CHLORIDE 0.9% 100 ML IVPB SCH ×4 (00:05→23:24)
--- NOTE | 2018-06-27 00:39 | P.PN ---
Subjective Progress Note Date: 06/26/18 the patient denies any new complaints. He continues to have fever, with associated mild sweats and weakness. No obvious bleeding. No abdominal pain, oral ulcers, or significant diarrhea Objective - Vital Signs Vital signs: Vital Signs Temp 100.3 F H 06/26/18 17:51 Pulse 121 H 06/26/18 16:00 Resp 18 06/26/18 16:00 BP 141/70 06/26/18 16:00 Pulse Ox 95 06/25/18 22:47 Intake & Output 06/26/18 06/26/18 06/27/18 06:59 18:59 06:59 Intake Total 863 600 Output Total 900 400 275 Balance -37 200 -275 Weight 91 kg Intake: Intake, IV Titration 350 Amount Cefepime 2 gm In Sodium 100 Chloride 0.9% 100 ml @ 200 mls/hr IVPB Q8HR [facility] Rx#:[id number] Vancomycin 1,500 mg In 250 Sodium Chloride 0.9% 250 ml @ 125 mls/hr IVPB Q16H [facility] Rx#:[id number] Oral 600 Blood Product 513 Platelet Irr Pheresis 2 203 Acda Unit [id number] Rc Irr As3 Unit 310 [id number] Output: Urine 900 400 275 Other: Voiding Method Urinal Urinal # Voids 1 1 # Bowel Movements 0 - Constitutional General appearance: Present: no acute distress - EENT Eyes: Present: EOMI ENT: Present: hearing grossly normal, normal oropharynx - Respiratory Respiratory: bilateral: CTA - Cardiovascular Rhythm: regular Heart sounds: normal: S1, S2 - Gastrointestinal General gastrointestinal: Present: normal bowel sounds, soft - Integumentary Integumentary: Present: normal - Neurologic Neurologic: Present: CNII-XII intact - Musculoskeletal Musculoskeletal: Present: generalized weakness, strength equal bilaterally - Psychiatric Psychiatric: Present: A&O x's 3, appropriate affect - Labs CBC & Chem 7: 06/26/18 07:12 06/26/18 07:12 Labs: Abnormal Lab Results - Last 24 Hours (Table) 06/26/18 06/26/18 Range/Units 07:12 07:12 WBC 0.2 L* (3.8-10.6) k/uL RBC 2.57 L (4.30-5.90) m/uL Hgb 7.6 L (13.0-17.5) gm/dL Hct 21.6 L (39.0-53.0) % RDW 17.1 H (11.5-15.5) % Plt Count 14 L* D (150-450) k/uL Chloride 112 H (98-107) mmol/L Carbon Dioxide 20 L (22-30) mmol/L BUN 25 H (9-20) mg/dL Glucose 157 H (74-99) mg/dL Calcium 7.9 L (8.4-10.2) mg/dL Total Bilirubin 1.7 H (0.2-1.3) mg/dL AST 108 H (17-59) U/L ALT 94 H (21-72) U/L Alkaline Phosphatase 223 H (38-126) U/L Total Protein 4.7 L (6.3-8.2) g/dL Albumin 2.3 L (3.5-5.0) g/dL Microbiology - Last 24 Hours (Table) 06/24/18 11:54 Blood Culture - Preliminary Blood No Growth after 48 hours 06/24/18 11:48 Blood Culture - Preliminary Blood No Growth after 48 hours 06/23/18 10:22 Blood Culture - Preliminary Blood No Growth after 72 hours Assessment and Plan (1) Neutropenia with fever Narrative/Plan: Fever persists , Along with neutropenia. Patient is not showing signs of overt sepsis however, on broad-spectrum antibiotics. Continue antibiotics according to ID. Cultures are negative so far. Anticipate count recovery in the next 3-4 days. Case was discussed in detail with the admitting service Current Visit: Yes Status: Acute Code(s): D70.9 - NEUTROPENIA, UNSPECIFIED; R50.81 - FEVER PRESENTING WITH CONDITIONS CLASSIFIED ELSEWHERE SNOMED Code(s): 079136583 (2) Pancytopenia due to antineoplastic chemotherapy Narrative/Plan: The patient had improvement in hemoglobin and platelets after transfusion yesterday. Hemoglobin was greater than 7, and platelets greater than 10 today with no obvious bleeding. Continue to monitor and transfuse as needed Current Visit: Yes Status: Acute Code(s): D61.810 - ANTINEOPLASTIC CHEMOTHERAPY INDUCED PANCYTOPENIA; T45.1X5A - ADVERSE EFFECT OF ANTINEOPLASTIC AND IMMUNOSUP DRUGS, INIT SNOMED Code(s): 547348496397669 (3) Acute myelogenous leukemia Current Visit: Yes Status: Acute Code(s): C92.00 - ACUTE MYELOBLASTIC LEUKEMIA, NOT HAVING ACHIEVED REMISSION SNOMED Code(s): 97537288 (4) Elevated troponin Narrative/Plan: The patient is being followed by cardiology and managed medically. Troponin increase was overall mild stranding down. He has had no recurrence of chest pain. As noted previously is currently not a candidate for antiplatelet therapy because of his very low platelets and increased risk of bleeding Current Visit: No Status: Acute Code(s): R79.89 - OTHER SPECIFIED ABNORMAL FINDINGS OF BLOOD CHEMISTRY SNOMED Code(s): 963510798
--- NOTE | 2018-06-27 08:20 | PN ---
PROGRESS NOTE DATE OF SERVICE: 06/26/2018. SUBJECTIVE: 62-year-old white male with aspiration pneumonia. White count increased to 0.2, hemoglobin is up to 7.6. Cardiovascular: S1-S2. Lungs are improving from right upper lobe pneumonia. He has got pancytopenia which is improving. Lungs scattered rhonchi and wheeze. Constitutionally feels a little bit better than yesterday. Hematology negative Homans. GI soft. ASSESSMENT: 1. Right upper lobe pneumonia. 2. Pancytopenia. 3. Febrile illness. 4. Acute myeloid leukemia, acute. 5. History of lymphoma. Continue with broad-spectrum antibiotics, cefepime and vancomycin. Monitor for pancytopenia improvement. Possible discharge home over the next 48 to 72 hours. MMODL / IJN: [id number] /
[2018-06-27] MEDS: ACYCLOVIR 200 MG CAP PO SCH ×2 (08:23→19:57)
[2018-06-27] MEDS: ISOSORBIDE MONONITRATE ER 30 MG TAB.ER.24H PO SCH (08:24)
[2018-06-27] MEDS: METOPROLOL SUCCINATE (ER) 25 MG TAB.ER.24H PO SCH (08:24)
[2018-06-27] MEDS: ATORVASTATIN 80 MG TAB PO SCH (08:24)
[2018-06-27] MEDS: ALLOPURINOL 300 MG TAB PO SCH (08:24)
[2018-06-27] MEDS: ASCORBIC ACID 500 MG TAB PO SCH (11:12)
[2018-06-27] MEDS: FOLIC ACID 1 MG TAB PO SCH (11:12)
[2018-06-27] MEDS: FERROUS SULFATE 325 MG TAB PO SCH (11:12)
[2018-06-27] MEDS: ACETAMINOPHEN TAB 325 MG TAB PO PRN ×2 (11:19→19:56)
--- NOTE | 2018-06-27 12:18 | PN ---
PROGRESS NOTE DATE OF SERVICE: 06/27/2018 Patient is a 62-year-old male who is seen sitting up in bed, awake, alert. No complaints. Does state that he is feeling a little better every day. The patient is still running fevers at times. The patient is hemodynamically stable, in no acute distress. PHYSICAL EXAM: VITAL SIGNS: Temperature 97.7, heart rate is 101, respiratory rate 22, blood pressure is 103/64, O2 sats 94% on room air HEENT. Head is normocephalic, atraumatic. Neck is supple. Trachea is midline. LUNGS: With occasional rhonchi. HEART: S1, S2 are heard. Intermittently tachycardic. ABDOMEN: Soft. Bowel sounds positive. EXTREMITIES: With no edema. NEUROLOGIC: Patient is awake and alert. LABS: Were reviewed from yesterday. No new labs to review. IMAGING: No new imaging to review. IMPRESSION: 1. Neutropenic sepsis with systemic inflammatory response. 2. Acute myelogenous leukemia. 3. Right upper lobe pneumonia. 4. Acute myocardial infarction. PLAN: Continue current medications which have been reviewed. Continue IV antibiotics per ID. Continue to increase activity as tolerated and we will follow patient closely with you making further changes as necessary. Patient seen by Dr. Americo Mays covering for Dr. Radha Chairez. MMODL / IJN: [id number] / MTDD
[2018-06-27] MEDS ORDERED: VANCOMYCIN TROUGH DUE 1 EACH MISC MISCELLANE ONE (13:00)
[2018-06-27] MEDS: VANCOMYCIN 1,500 MG in SODIUM CHLORIDE 0.9% 250 ML IVPB SCH ×2 (16:07→16:29)
[2018-06-27 17:16] LABS: Anisocytosis Slight; HCT 20.6 % (39.0-53.0); HGB 7.2 gm/dL (13.0-17.5); MCH 29.5 pg (25.0-35.0); MCHC 34.9 g/dL (31.0-37.0); MCV 84.5 fL (80.0-100.0); Mean Platelet Volume 9.5; RBC 2.44 m/uL (4.30-5.90); RDW 17.6 % (11.5-15.5)
[2018-06-27 17:19] LABS: Platelet Count 7 k/uL (150-450); WBC 0.2 k/uL (3.8-10.6)
[2018-06-27] MEDS ORDERED: SUCRALFATE 1 GM TAB PO PRN (18:15)
[2018-06-27] MEDS ORDERED: LIDOCAINE VISCOUS 2% 15 ML CUP MUCOUS MEM PRN (18:16)
--- NOTE | 2018-06-27 23:20 | PN ---
PROGRESS NOTE SUBJECTIVE: This 62-year-old white male was admitted with right upper lobe pneumonia, neutropenic sepsis, AML, acute hypoxemic respiratory failure, pancytopenia. Patient is feeling better every day. His white count up to 0.2, hemoglobin 7.2, down from 7 6, and platelet count is at 7. Cardiovascular S1-S2. Lungs are fairly clear. GI soft. Hematology negative Homans. ASSESSMENT: 1. Acute myeloid leukemia. 2. Pancytopenia. 3. Right upper lobe pneumonia. 4. Neutropenic sepsis. Continue broad-spectrum antibiotics. Possible platelet transfusion. Await for Hematology and urology recommendations. MMODL / IJN: [id number] /
[2018-06-28] MEDS: VANCOMYCIN 1,500 MG in SODIUM CHLORIDE 0.9% 250 ML IVPB SCH ×2 (02:52→15:02)
[2018-06-28] MEDS: ACETAMINOPHEN TAB 325 MG TAB PO PRN ×3 (03:12→20:40)
[2018-06-28 03:14] LABS: Glucose,Whole Blood 122 mg/dL (75-99)
[2018-06-28 06:43] LABS: HCT 22.3 % (39.0-53.0); HGB 7.9 gm/dL (13.0-17.5); MCHC 35.6 g/dL (31.0-37.0); MCV 87.2 fL (80.0-100.0); Mean Platelet Volume 7.3; RBC 2.55 m/uL (4.30-5.90); RDW 15.3 % (11.5-15.5)
[2018-06-28 06:49] LABS: WBC 0.2 k/uL (3.8-10.6)
[2018-06-28 06:50] LABS: Platelet Count 11 k/uL (150-450)
[2018-06-28] MEDS: CEFEPIME 2 GM in SODIUM CHLORIDE 0.9% 100 ML IVPB SCH ×2 (07:09→16:57)
[2018-06-28 07:38] LABS: Albumin 2.5 g/dL (3.5-5.0); Calcium 7.8 mg/dL (8.4-10.2); Potassium 3.8 mmol/L (3.5-5.1); Total Bilirubin 1.6 mg/dL (0.2-1.3); Total Protein 5.1 g/dL (6.3-8.2)
[2018-06-28 09:11] LABS: Anisocytosis (M) Present; Poikilocytosis (M) Present
[2018-06-28] MEDS: FOLIC ACID 1 MG TAB PO SCH (09:11)
[2018-06-28] MEDS: ISOSORBIDE MONONITRATE ER 30 MG TAB.ER.24H PO SCH (09:11)
[2018-06-28] MEDS: ATORVASTATIN 80 MG TAB PO SCH (09:11)
[2018-06-28] MEDS: METOPROLOL SUCCINATE (ER) 25 MG TAB.ER.24H PO SCH (09:11)
[2018-06-28] MEDS: ACYCLOVIR 200 MG CAP PO SCH ×2 (09:12→20:41)
[2018-06-28] MEDS: ALLOPURINOL 300 MG TAB PO SCH (09:12)
[2018-06-28] MEDS: FERROUS SULFATE 325 MG TAB PO SCH (09:12)
[2018-06-28] MEDS: ASCORBIC ACID 500 MG TAB PO SCH (09:12)
--- NOTE | 2018-06-28 16:19 | P.PN ---
Subjective Progress Note Date: 06/28/18 06/28/2018: Patient seen and examined. Patient denies cough or chest tightness. He denies wheezing and shortness of breath. He states he has been having fevers. T-max over night was 102. He is on 2L NC. He states he is still not feeling any better. Objective - Vital Signs Vital signs: Vital Signs Temp 99.5 F 06/28/18 11:58 Pulse 92 06/28/18 11:58 Resp 20 06/28/18 11:58 BP 104/51 06/28/18 11:58 Pulse Ox 91 L 06/28/18 11:58 Intake & Output 06/27/18 06/28/18 06/28/18 18:59 06:59 18:59 Intake Total 802 199 200 Output Total 152 506 304 Balance 650 -307 -104 Weight 77.6 kg 77.6 kg Intake: Intake, IV Titration 100 Amount Cefepime 2 gm In Sodium 100 Chloride 0.9% 100 ml @ 200 mls/hr IVPB Q8HR [facility] Rx#:[id number] Oral 702 200 Blood Product 199 Platelet Irr Pheresis 2 199 Acda Unit [id number] Output: Urine 150 500 300 Stool 2 6 4 Other: Voiding Method Urinal Urinal Urinal # Voids 1 - Exam General: Patient is alert and oriented, no acute distress CV: RRR, s1/s2 Lungs: Diminished breath sounds otherwise clear Abd: Soft, NT/ND, +BS Ext: No edema - Labs CBC & Chem 7: 06/28/18 06:25 06/28/18 06:25 Labs: Abnormal Lab Results - Last 24 Hours (Table) 06/27/18 06/28/18 06/28/18 Range/Units 16:56 03:11 06:25 WBC 0.2 L* (3.8-10.6) k/uL RBC 2.44 L (4.30-5.90) m/uL Hgb 7.2 L (13.0-17.5) gm/dL Hct 20.6 L (39.0-53.0) % RDW 17.6 H (11.5-15.5) % Plt Count 7 L* (150-450) k/uL Chloride 115 H (98-107) mmol/L Carbon Dioxide 16 L (22-30) mmol/L BUN 29 H (9-20) mg/dL Glucose 117 H (74-99) mg/dL POC Glucose (mg/dL) 122 H (75-99) mg/dL Calcium 7.8 L (8.4-10.2) mg/dL Total Bilirubin 1.6 H (0.2-1.3) mg/dL AST 225 H (17-59) U/L ALT 205 H (21-72) U/L Alkaline Phosphatase 354 H (38-126) U/L Total Protein 5.1 L (6.3-8.2) g/dL Albumin 2.5 L (3.5-5.0) g/dL 06/28/18 Range/Units 06:25 WBC 0.2 L* (3.8-10.6) k/uL RBC 2.55 L (4.30-5.90) m/uL Hgb 7.9 L (13.0-17.5) gm/dL Hct 22.3 L (39.0-53.0) % RDW (11.5-15.5) % Plt Count 11 L* D (150-450) k/uL Chloride (98-107) mmol/L Carbon Dioxide (22-30) mmol/L BUN (9-20) mg/dL Glucose (74-99) mg/dL POC Glucose (mg/dL) (75-99) mg/dL Calcium (8.4-10.2) mg/dL Total Bilirubin (0.2-1.3) mg/dL AST (17-59) U/L ALT (21-72) U/L Alkaline Phosphatase (38-126) U/L Total Protein (6.3-8.2) g/dL Albumin (3.5-5.0) g/dL Microbiology - Last 24 Hours (Table) 06/24/18 11:48 Blood Culture - Preliminary Blood No Growth after 96 hours 06/24/18 11:54 Blood Culture - Preliminary Blood No Growth after 96 hours 06/23/18 10:22 Blood Culture - Preliminary Blood No Growth after 120 hours Assessment and Plan Assessment: Acute hypoxic respiratory failure Acute exacerbation of COPD Neutropenic fever, sepsis RUL pneumonia Pancytopenia NAGMA Transaminitis Moderate PCM AML O2 to maintain saturation > or = 88% Bronchodilators ABX per ID GI and DVT prophylaxis IS and pulmonary hygiene Cultures negative to date Continue supportive care
[2018-06-28] MEDS: LEVOFLOXACIN 750 MG TAB PO SCH (20:40)
--- NOTE | 2018-06-28 22:49 | P.PN ---
Subjective Progress Note Date: 06/28/18 Principal diagnosis: AML Platlets 11, no bleeding noted. Liver function increased today. Ultrasound of abdomen has been ordered. Fevers up to 102.5 overnight, This is on continued treatment with Vancomycin, antiviral (prophylaxis), Cefepime, and Levaquin. He states he doesnt feel much better overall. Objective - Vital Signs Vital signs: Vital Signs Temp 99.6 F 06/28/18 20:00 Pulse 113 H 06/28/18 20:00 Resp 15 06/28/18 20:00 BP 138/67 06/28/18 20:00 Pulse Ox 95 06/28/18 20:00 Intake & Output 06/28/18 06/28/18 06/29/18 06:59 18:59 06:59 Intake Total 199 422 Output Total 506 306 704 Balance -307 116 -704 Weight 77.6 kg 77.6 kg Intake: Oral 422 Blood Product 199 Platelet Irr Pheresis 2 199 Acda Unit [id number] Output: Urine 500 300 700 Stool 6 6 4 Other: Voiding Method Urinal Urinal Urinal # Voids 1 2 - Exam - EENT Eyes: EOMI, PERRLA ENT: hearing grossly normal, normal oropharynx - Neck Neck: no lymphadenopathy Thyroid: bilateral: normal size - Respiratory Respiratory: bilateral: CTA - Cardiovascular Rhythm: regular Heart sounds: normal: S1, S2 - Gastrointestinal General gastrointestinal: normal bowel sounds, soft - Integumentary Integumentary: normal - Neurologic Neurologic: CNII-XII intact - Musculoskeletal Musculoskeletal: generalized weakness, strength equal bilaterally - Psychiatric Psychiatric: A&O x's 3, appropriate affect - Labs CBC & Chem 7: 07/01/18 06:44 07/01/18 06:44 Labs: Abnormal Lab Results - Last 24 Hours (Table) 06/28/18 06/28/18 06/28/18 Range/Units 03:11 06:25 06:25 WBC 0.2 L* (3.8-10.6) k/uL RBC 2.55 L (4.30-5.90) m/uL Hgb 7.9 L (13.0-17.5) gm/dL Hct 22.3 L (39.0-53.0) % Plt Count 11 L* D (150-450) k/uL Chloride 115 H (98-107) mmol/L Carbon Dioxide 16 L (22-30) mmol/L BUN 29 H (9-20) mg/dL Glucose 117 H (74-99) mg/dL POC Glucose (mg/dL) 122 H (75-99) mg/dL Calcium 7.8 L (8.4-10.2) mg/dL Total Bilirubin 1.6 H (0.2-1.3) mg/dL AST 225 H (17-59) U/L ALT 205 H (21-72) U/L Alkaline Phosphatase 354 H (38-126) U/L Total Protein 5.1 L (6.3-8.2) g/dL Albumin 2.5 L (3.5-5.0) g/dL Microbiology - Last 24 Hours (Table) 06/24/18 11:48 Blood Culture - Preliminary Blood No Growth after 96 hours 06/24/18 11:54 Blood Culture - Preliminary Blood No Growth after 96 hours 06/23/18 10:22 Blood Culture - Preliminary Blood No Growth after 120 hours Assessment and Plan Plan: Chest x-ray: report reviewed Assessment and Plan Neutropenia with fever - Not improved - Fevers worsened overnight with T-Max 102.5, Infectious disease is following. - He is not on anti-fungal at this time, although has increase liver function today, Repeat mckeon cultures and will ask ID to reassess if fevers spike again. - Continued on Neutropenic broad spectrum antibiotics - Chest Imaging X-Ray Revealed right lung infiltrate as a possible source, but this was actually improved from previous x-ray last admission. - Growth factors are not recommended at this time, as the patient has had induction chemotherapy and does not have proven remission yet. Pancytopenia due to antineoplastic chemotherapy - Secondary to AML, and induction chemotherapy. - Continue to monitor and transfuse as needed to keep hemoglobin above 7, and platelets above 10. - IRRADIATED BLOOD PRODUCTS ONLY - - Discontinue Ferrous Sulfate as Ferritin levels are elevated from repeated transfusions, supplemental iron not needed at this time - Stop Additional Supplementation with Vitamin C at this time not necessary and potentially may increase risk of bleeding/platlet function - Monitor Coag Factors, will check in am Acute myelogenous leukemia - Once count recovery has occurred, bone marrow aspiration biopsy will be repeated to check for induction remission. - If the patient does achieve remission, he'll be referred for bone marrow transplant. Otherwise plan for re-induction Elevated troponin - The patient has known coronary artery disease and history of DE. - She is status post stent, placed in 09/07. Currently aspirin and Plavix had to be discontinued because of low platelets. - Risk-benefit has been discussed in detail by Dr. Andrade and patient - Cardiology Following - Smoking Cessation Re-mediation, Patient was actually smoking up to 06/08 but has quit since his prior admission Liver Transiminitis - Discontinue Statin, Decrease dose of Acetaminophen and obtain abdominal ultrasoun - Likely secondary to medicatio
--- NOTE | 2018-06-28 23:10 | PN ---
PROGRESS NOTE DATE OF SERVICE: 06/28/2018. REASON FOR FOLLOWUP: Febrile neutropenia with right upper lobe pneumonia. INTERVAL HISTORY: The patient has been running fever persistently over the last few days. The patient has been breathing comfortably. He did have very minimal cough, not bringing up any sputum. No chest pain. No nausea, no vomiting. No abdominal pain and no diarrhea. PHYSICAL EXAMINATION: Blood pressure 132/57 with a pulse of 85, temperature 98.6. He is 95% on room air. GENERAL DESCRIPTION: A middle-aged male lying in bed in no distress. HEENT: No pallor. Oral mucosa dry. LUNGS: Unlabored breathing with decreased breath sounds in the bases. HEART: S1, S2. Regular rate and rhythm. ABDOMEN: Soft, no tenderness. EXTREMITIES: No edema of the feet. LABS: Hemoglobin 7.1, 0.2, BUN of 29 and creatinine 1.16. Liver enzymes remain to be elevated. DIAGNOSTIC IMPRESSION AND PLAN: Patient with febrile neutropenia with concern for pneumonia, however, the patient continues to have elevated liver enzymes that could be the source of his fever. We will obtain a stat ultrasound of the abdomen. Continue with cefepime, add Levaquin and discontinue vancomycin. Repeat chest x-ray in the morning. If showing persistent pneumonia, may order a CT for better definition of pneumonia and adjustment of antibiotic. Continue supportive care. MMODL / IJN: [id number] /
--- NOTE | 2018-06-29 00:10 | PN ---
PROGRESS NOTE Hemoglobin is up to 7.9, white count 0.2, platelet count 11,000. Cardiovascular S1-S2. Lungs clear. GI soft. Hematology negative Homans. ASSESSMENT: 1. Neutropenic sepsis. T-max is a 102 overnight. Still not feeling better. 2. Still has pancytopenia. 3. Acute hypoxemic respiratory failure. 4. Chronic obstructive pulmonary disease. 5. Sepsis due to neutropenic fever. 6. Right upper lobe pneumonia. 7. Pancytopenia. 8. Transaminitis. 9. PCM. 10.Acute myeloid leukemia. Continue broad-spectrum antibiotics. Continue until patient improves. Pancytopenia . Please see further orders. [employer] and Infectious Disease. Broad- spectrum antibiotics will be continued. MMODL / IJN: [id number] /
[2018-06-29] MEDS: CEFEPIME 2 GM in SODIUM CHLORIDE 0.9% 100 ML IVPB SCH ×4 (00:20→22:49)
[2018-06-29] MEDS: ACETAMINOPHEN TAB 325 MG TAB PO PRN (00:40)
[2018-06-29 03:31] LABS: Appearance,Urine Clear (Clear); Bacteria,Urine Rare /hpf; Bilirubin,Urine Negative (Negative); Blood,Urine Moderate (Negative); Color,Urine Yellow; Glucose,Urine (UA) Negative (Negative); Granular Casts,Urine 9 /lpf (0); Ketones,Urine Negative (Negative); Leukocyte Esterase,Urine Negative (Negative); Mucus,Urine Rare /hpf; Nitrite,Urine Negative (Negative); PH, Urine 6.5 (5.0-8.0); Protein,Urine 2+ (Negative); RBC,Urine 7 /hpf (0-5); Specific Gravity,Urine 1.025 (1.001-1.035); Squamous Epithelial Cell,Urine 1 /hpf (0-4); Urobilinogen,Urine <2.0 mg/dL (<2.0)
[2018-06-29 07:49] LABS: INR 1.2 (<1.2); Prothrombin Time 12.6 sec (9.0-12.0)
[2018-06-29 08:14] LABS: Albumin 2.3 g/dL (3.5-5.0); Calcium 7.6 mg/dL (8.4-10.2); Magnesium 2.3 mg/dL (1.6-2.3); Potassium 3.7 mmol/L (3.5-5.1); Total Bilirubin 1.3 mg/dL (0.2-1.3); Total Protein 4.6 g/dL (6.3-8.2); Uric Acid 1.8 mg/dL (3.5-8.5)
[2018-06-29 08:24] LABS: HCT 20.5 % (39.0-53.0); MCH 29.3 pg (25.0-35.0); MCHC 33.8 g/dL (31.0-37.0); MCV 86.7 fL (80.0-100.0); Mean Platelet Volume 6.7; RBC 2.37 m/uL (4.30-5.90); RDW 15.3 % (11.5-15.5)
[2018-06-29 08:30] LABS: Platelet Count 9 k/uL (150-450); WBC 0.1 k/uL (3.8-10.6)
[2018-06-29 08:31] LABS: HGB 6.9 gm/dL (13.0-17.5)
--- NOTE | 2018-06-29 08:38 | XR ---
EXAMINATION TYPE: XR chest 2V DATE OF EXAM: 06/29/2018 COMPARISON: 06/24/2018 HISTORY: Shortness of breath TECHNIQUE: Frontal and lateral views of the chest are obtained. FINDINGS: Scattered senescent parenchymal changes noted. Hyperinflation compatible with COPD. Patchy density left medial lung base is stable. Nodular density right midlung zone may reflect scapul ar tip. Heart size is stable. Mediastinal structures are stable and grossly unremarkable. No evidence for hilar prominence. Degenerative changes dorsal spine. IMPRESSION: 1. Patchy density left medial lung base is stable. Nodular density right midlung zone may reflect sca pular tip.
--- NOTE | 2018-06-29 09:46 | US ---
EXAMINATION TYPE: US abdomen complete DATE OF EXAM: 06/29/2018 COMPARISON: CT CLINICAL HISTORY: fever , elevated liver enzymes; on chemotherapy; jaundice; gallstone seen on CT EXAM MEASUREMENTS: Liver Length: 14.7 cm Gallbladder Wall: 0.4 cm CBD: 0.4 cm Spleen: 13.3 x 13.8 x 5.8cm Right Kidney: 10.5 x 5.3 x 4.5 cm Left Kidney: 11.8 x 7.5 x 6.2 cm Pancreas: wnl;tail obscured by overlying bowel gas Liver: wnl Gallbladder: hyperechoic, shadowing stone noted mid lumen and some mobility noted of it; abnormally thickened wall. Evidence for sonographic Allen's sign: no CBD: wnl Spleen: enlarged as is greater than 13.0cm Right Kidney: No hydronephrosis or masses seen Left Kidney: No hydronephrosis or masses seen Upper IVC: wnl Abd Aorta: ectatic appearance with calcified gallo but size is wnl. The liver is homogenous. The intrahepatic portion of the IVC and proximal abdominal aorta are within normal limits. Common bile duct is unremarkable. The visualized portions of the pancreas are homog enous. Kidneys are symmetric and free of hydronephrosis. No renal lesions are seen. IMPRESSION: 1. Uncomplicated cholelithiasis. 2. Splenomegaly.
[2018-06-29] MEDS: ISOSORBIDE MONONITRATE ER 30 MG TAB.ER.24H PO SCH (09:50)
[2018-06-29] MEDS: METOPROLOL SUCCINATE (ER) 25 MG TAB.ER.24H PO SCH (09:50)
[2018-06-29] MEDS: ALLOPURINOL 300 MG TAB PO SCH (09:50)
[2018-06-29] MEDS: FOLIC ACID 1 MG TAB PO SCH (09:50)
[2018-06-29] MEDS: ACYCLOVIR 200 MG CAP PO SCH ×2 (09:51→19:41)
[2018-06-29 14:41] LABS: Poikilocytosis (M) Present
--- NOTE | 2018-06-29 17:11 | P.PN ---
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 Will transfuse one unit of irradiated platlets and one unit of irradiated PRBC Objective - Vital Signs Vital signs: Vital Signs Temp 98.2 F 06/29/18 16:55 Pulse 99 06/29/18 16:55 Resp 20 06/29/18 16:55 BP 134/80 06/29/18 16:55 Pulse Ox 94 L 06/29/18 16:55 Intake & Output 06/28/18 06/29/18 06/29/18 18:59 06:59 18:59 Intake Total 422 0 Output Total 306 804 700 Balance 116 -804 -700 Weight 77.6 kg 77.2 kg Intake: Oral 422 Blood Product 0 Rc Irr As1 Unit 0 [id number] Output: Urine 300 800 700 Stool 6 4 Other: Voiding Method Urinal Urinal # Voids 2 - Exam - EENT Eyes: EOMI, PERRLA ENT: hearing grossly normal, normal oropharynx - Neck Neck: no lymphadenopathy Thyroid: bilateral: normal size - Respiratory Respiratory: bilateral: CTA - Cardiovascular Rhythm: regular Heart sounds: normal: S1, S2 - Gastrointestinal General gastrointestinal: normal bowel sounds, soft - Integumentary Integumentary: normal - Neurologic Neurologic: CNII-XII intact - Musculoskeletal Musculoskeletal: generalized weakness, strength equal bilaterally - Psychiatric Psychiatric: A&O x's 3, appropriate affect - Labs CBC & Chem 7: 06/29/18 06:55 06/29/18 06:55 Labs: Abnormal Lab Results - Last 24 Hours (Table) 06/27/18 06/29/18 06/29/18 Range/Units 19:22 02:30 06:55 WBC 0.1 L* (3.8-10.6) k/uL RBC 2.37 L (4.30-5.90) m/uL Hgb 6.9 L* (13.0-17.5) gm/dL Hct 20.5 L (39.0-53.0) % Plt Count 9 L* (150-450) k/uL PT (9.0-12.0) sec INR (<1.2) Chloride (98-107) mmol/L Carbon Dioxide (22-30) mmol/L BUN (9-20) mg/dL Glucose (74-99) mg/dL Uric Acid (3.5-8.5) mg/dL Calcium (8.4-10.2) mg/dL AST (17-59) U/L ALT (21-72) U/L Alkaline Phosphatase (38-126) U/L Total Protein (6.3-8.2) g/dL Albumin (3.5-5.0) g/dL Urine Protein 2+ H (Negative) Urine Blood Moderate H (Negative) Urine RBC 7 H (0-5) /hpf Urine Bacteria Rare H (None) /hpf Urine Mucus Rare H (None) /hpf Crossmatch See Detail 06/29/18 06/29/18 Range/Units 06:55 06:55 WBC (3.8-10.6) k/uL RBC (4.30-5.90) m/uL Hgb (13.0-17.5) gm/dL Hct (39.0-53.0) % Plt Count (150-450) k/uL PT 12.6 H (9.0-12.0) sec INR 1.2 H (<1.2) Chloride 115 H (98-107) mmol/L Carbon Dioxide 20 L (22-30) mmol/L BUN 30 H (9-20) mg/dL Glucose 115 H (74-99) mg/dL Uric Acid 1.8 L (3.5-8.5) mg/dL Calcium 7.6 L (8.4-10.2) mg/dL AST 145 H (17-59) U/L ALT 202 H (21-72) U/L Alkaline Phosphatase 323 H (38-126) U/L Total Protein 4.6 L (6.3-8.2) g/dL Albumin 2.3 L (3.5-5.0) g/dL Urine Protein (Negative) Urine Blood (Negative) Urine RBC (0-5) /hpf Urine Bacteria (None) /hpf Urine Mucus (None) /hpf Crossmatch Microbiology - Last 24 Hours (Table) 06/24/18 11:54 Blood Culture - Preliminary Blood No Growth after 120 hours 06/24/18 11:48 Blood Culture - Preliminary Blood No Growth after 120 hours 06/23/18 10:22 Blood Culture - Final Blood No Growth after 144 hours Assessment and Plan Plan: Chest x-ray: report reviewed Assessment and Plan Neutropenia with fever - Not improved - Fevers worsened overnight with T-Max 102.5, Infectious disease is following. - He is not on anti-fungal at this time, although has increase liver function today, Repeat mckeon cultures and will ask ID to reassess if fevers spike again. - Continued on Neutropenic broad spectrum antibiotics - Chest Imaging X-Ray Revealed right lung infiltrate as a possible source, but this was actually improved from previous x-ray last admission. - Growth factors are not recommended at this time, as the patient has had induction chemotherapy and does not have proven remission yet. Pancytopenia due to antineoplastic chemotherapy - Secondary to AML, and induction chemotherapy. - Continue to monitor and transfuse as needed to keep hemoglobin above 7, and platelets above 10. - IRRADIATED BLOOD PRODUCTS ONLY - - Discontinue Ferrous Sulfate as Ferritin levels are elevated from repeated transfusions, supplemental iron not needed at this time - Stop Additional Supplementation with Vitamin C at this time not necessary and potentially may increase risk of bleeding/platlet function - Monitor Coag Factors, will check in am - Platlets 9 - transfuse one unit today and Hgb 6.9 transfuse one unit of irradiated PRBC today Acute myelogenous leukemia - Once count recovery has occurred, bone marrow aspiration biopsy will be repeated to check for induction remission. - If the patient does achieve remission, he'll be referred for bone marrow transplant. Otherwise plan for re-induction Elevated troponin - The patient has known coronary artery disease and history of [place]. - She is status post stent, placed in 09/07. Currently aspirin and Plavix had to be discontinued because of low platelets. - Risk-benefit has been discussed in detail by Dr. Andrade and patient - Cardiology Following - Smoking Cessation Re-mediation, Patient was actually smoking up to 06/08 but has quit since his prior admission Liver Transiminitis - Discontinue Statin, Decrease dose of Acetaminophen and obtain abdominal ultrasoun - Likely secondary to medication - Improved today mildly - Reviewed ultrasound splenomegaly and uncomplicated cholelithiasis - MOnitor CMP
[2018-06-29] MEDS: LEVOFLOXACIN 750 MG TAB PO SCH (19:41)
--- NOTE | 2018-06-29 19:50 | P.PN ---
Subjective Progress Note Date: 06/29/18 07/09/2018: Patient seen and examined. Patient states he is feeling much better. His fevers are improving. He does state that he has an occasional cough. He did cough up some phlegm and she has not been taken to the lab yet. The patient states he is otherwise doing well. Objective - Vital Signs Vital signs: Vital Signs Temp 99.2 F 06/29/18 19:04 Pulse 90 06/29/18 19:04 Resp 18 06/29/18 19:04 BP 154/74 06/29/18 19:04 Pulse Ox 91 L 06/29/18 19:04 Intake & Output 06/29/18 06/29/18 06/30/18 06:59 18:59 06:59 Intake Total 240 310 Output Total 804 700 Balance -804 -460 310 Weight 77.2 kg Intake: Oral 240 Blood Product 0 310 Rc Irr As1 Unit 0 310 [id number] Output: Urine 800 700 Stool 4 Other: Voiding Method Urinal # Voids 2 - Exam General: Patient is alert and oriented, no acute distress CV: RRR, s1/s2 Lungs: Diminished breath sounds otherwise clear Abd: Soft, NT/ND, +BS Ext: No edema - Labs CBC & Chem 7: 06/29/18 06:55 06/29/18 06:55 Labs: Abnormal Lab Results - Last 24 Hours (Table) 06/27/18 06/29/18 06/29/18 Range/Units 19:22 02:30 06:55 WBC 0.1 L* (3.8-10.6) k/uL RBC 2.37 L (4.30-5.90) m/uL Hgb 6.9 L* (13.0-17.5) gm/dL Hct 20.5 L (39.0-53.0) % Plt Count 9 L* (150-450) k/uL PT (9.0-12.0) sec INR (<1.2) Chloride (98-107) mmol/L Carbon Dioxide (22-30) mmol/L BUN (9-20) mg/dL Glucose (74-99) mg/dL Uric Acid (3.5-8.5) mg/dL Calcium (8.4-10.2) mg/dL AST (17-59) U/L ALT (21-72) U/L Alkaline Phosphatase (38-126) U/L Total Protein (6.3-8.2) g/dL Albumin (3.5-5.0) g/dL Urine Protein 2+ H (Negative) Urine Blood Moderate H (Negative) Urine RBC 7 H (0-5) /hpf Urine Bacteria Rare H (None) /hpf Urine Mucus Rare H (None) /hpf Crossmatch See Detail 06/29/18 06/29/18 Range/Units 06:55 06:55 WBC (3.8-10.6) k/uL RBC (4.30-5.90) m/uL Hgb (13.0-17.5) gm/dL Hct (39.0-53.0) % Plt Count (150-450) k/uL PT 12.6 H (9.0-12.0) sec INR 1.2 H (<1.2) Chloride 115 H (98-107) mmol/L Carbon Dioxide 20 L (22-30) mmol/L BUN 30 H (9-20) mg/dL Glucose 115 H (74-99) mg/dL Uric Acid 1.8 L (3.5-8.5) mg/dL Calcium 7.6 L (8.4-10.2) mg/dL AST 145 H (17-59) U/L ALT 202 H (21-72) U/L Alkaline Phosphatase 323 H (38-126) U/L Total Protein 4.6 L (6.3-8.2) g/dL Albumin 2.3 L (3.5-5.0) g/dL Urine Protein (Negative) Urine Blood (Negative) Urine RBC (0-5) /hpf Urine Bacteria (None) /hpf Urine Mucus (None) /hpf Crossmatch Microbiology - Last 24 Hours (Table) 06/24/18 11:54 Blood Culture - Preliminary Blood No Growth after 120 hours 06/24/18 11:48 Blood Culture - Preliminary Blood No Growth after 120 hours 06/23/18 10:22 Blood Culture - Final Blood No Growth after 144 hours Assessment and Plan Assessment: Acute hypoxic respiratory failure, resolved, patient now on RA Acute exacerbation of COPD Neutropenic fever, sepsis RUL pneumonia Pancytopenia NAGMA Transaminitis Moderate PCM AML O2 to maintain saturation > or = 88% Bronchodilators ABX per ID GI and DVT prophylaxis IS and pulmonary hygiene Cultures negative to date Continue supportive care
--- NOTE | 2018-06-29 21:22 | PN ---
PROGRESS NOTE DATE OF SERVICE: 06/29/2018. REASON FOR FOLLOWUP: Febrile neutropenia, pneumonia. INTERVAL HISTORY: The patient overall fever pattern has improved. The highest temperature has been 100 degrees Fahrenheit around midnight, but no fever recorded since then. The patient is feeling better. The patient denies having any chest pain. No shortness of breath. Very minimal cough. No nausea, no vomiting. No abdominal pain. No diarrhea. PHYSICAL EXAMINATION: Blood pressure 134/80 with a pulse of 99, temperature 98.2. He is 94% on room air. General description is a middle aged male up in the room in no distress. HEENT examination is slight pallor. No scleral icterus. Lungs unlabored breathing, decreased breath sounds in the bases. No wheeze. Heart S1, S2. Regular rate and rhythm. Abdomen soft, no tenderness. LABS: Hemoglobin 6.9, white count of 0.1. Creatinine is 1.12. Liver enzymes slightly improved. Ultrasound of the liver, gallbladder did not show any evidence of cholecystitis. DIAGNOSTIC IMPRESSION AND PLAN: Patient with febrile neutropenia with concern for pneumonia. The patient fever improved with addition of Levaquin yesterday along with cefepime. Vanco has been discontinued. Monitor the patient closely. Continue supportive care. MMODL / IJN: [id number] /
--- NOTE | 2018-06-30 05:55 | PN ---
PROGRESS NOTE SUBJECTIVE: Patient is feeling better. Hemoglobin dropped below 7 today, it is 6.6. He was given one unit of irradiated packed red blood cell transfusion. He has not spiked any fever for the first time in the last 24 hours. CARDIOVASCULAR: S1, S2. LUNGS: Scattered rhonchi. HEMATOLOGY: Negative Homans. PSYCH: Fair mood and affect. ASSESSMENT: 1. Pancytopenia. 2. Neutropenic sepsis. 3. Community-acquired pneumonia. 4. AML. 5. Pancytopenic. Continue broad-spectrum antibiotics. Transfuse 1 unit packed red blood cells, irradiated. Possible platelet transfusion. Await for Hematology consult recommendations. MMODL / IJN: [id number] /
[2018-06-30 07:04] LABS: HCT 23.1 % (39.0-53.0); HGB 7.7 gm/dL (13.0-17.5); MCH 28.6 pg (25.0-35.0); MCHC 33.5 g/dL (31.0-37.0); MCV 85.5 fL (80.0-100.0); Mean Platelet Volume 7.8; RDW 15.5 % (11.5-15.5)
[2018-06-30 07:15] LABS: Platelet Count 7 k/uL (150-450); WBC 0.2 k/uL (3.8-10.6)
[2018-06-30 07:22] LABS: ALT 163 U/L (21-72); AST 91 U/L (17-59); Albumin 2.4 g/dL (3.5-5.0); Alkaline Phosphatase 305 U/L (38-126); Anion Gap 6 mmol/L; Blood Urea Nitrogen 27 mg/dL (9-20); Calcium 7.9 mg/dL (8.4-10.2); Carbon Dioxide 21 mmol/L (22-30); Chloride 114 mmol/L (98-107); Glucose 116 mg/dL (74-99); Potassium 3.7 mmol/L (3.5-5.1); Sodium 141 mmol/L (137-145); Total Bilirubin 1.4 mg/dL (0.2-1.3); Total Protein 4.9 g/dL (6.3-8.2)
--- NOTE | 2018-06-30 07:54 | P.PN ---
Subjective Progress Note Date: 06/30/18 Principal diagnosis: AML platelets 7 today. Will transfuse one unit of irradiated platlets spoke with nursing Objective - Vital Signs Vital signs: Vital Signs Temp 97.8 F 06/30/18 04:00 Pulse 104 H 06/30/18 04:00 Resp 18 06/30/18 04:00 BP 134/69 06/30/18 04:00 Pulse Ox 93 L 06/30/18 07:20 Intake & Output 06/29/18 06/30/18 06/30/18 18:59 06:59 18:59 Intake Total 240 410 Output Total 700 Balance -460 410 Weight 76.1 kg Intake: Intake, IV Titration 100 Amount Cefepime 2 gm In Sodium 100 Chloride 0.9% 100 ml @ 200 mls/hr IVPB Q8HR [facility] Rx#:[id number] Oral 240 Blood Product 0 310 Rc Irr As1 Unit 0 310 [id number] Output: Urine 700 Other: Voiding Method Urinal # Voids 1 - Exam - EENT Eyes: EOMI, PERRLA ENT: hearing grossly normal, normal oropharynx Dentition poor loose teeth patient is tuggih at - Neck Neck: no lymphadenopathy Thyroid: bilateral: normal size - Respiratory Respiratory: bilateral: CTA - Cardiovascular Rhythm: regular Heart sounds: normal: S1, S2 - Gastrointestinal General gastrointestinal: normal bowel sounds, soft - Integumentary Integumentary: normal - Neurologic Neurologic: CNII-XII intact - Musculoskeletal Musculoskeletal: generalized weakness, strength equal bilaterally - Psychiatric Psychiatric: A&O x's 3, appropriate affect - Labs CBC & Chem 7: 07/01/18 06:44 07/01/18 06:44 Labs: Abnormal Lab Results - Last 24 Hours (Table) 06/27/18 06/29/18 06/29/18 Range/Units 19:22 06:55 06:55 WBC 0.1 L* (3.8-10.6) k/uL RBC 2.37 L (4.30-5.90) m/uL Hgb 6.9 L* (13.0-17.5) gm/dL Hct 20.5 L (39.0-53.0) % Plt Count 9 L* (150-450) k/uL Chloride 115 H (98-107) mmol/L Carbon Dioxide 20 L (22-30) mmol/L BUN 30 H (9-20) mg/dL Glucose 115 H (74-99) mg/dL Uric Acid 1.8 L (3.5-8.5) mg/dL Calcium 7.6 L (8.4-10.2) mg/dL Total Bilirubin (0.2-1.3) mg/dL AST 145 H (17-59) U/L ALT 202 H (21-72) U/L Alkaline Phosphatase 323 H (38-126) U/L Total Protein 4.6 L (6.3-8.2) g/dL Albumin 2.3 L (3.5-5.0) g/dL Crossmatch See Detail 06/30/18 06/30/18 Range/Units 06:49 06:49 WBC 0.2 L* (3.8-10.6) k/uL RBC 2.70 L (4.30-5.90) m/uL Hgb 7.7 L (13.0-17.5) gm/dL Hct 23.1 L (39.0-53.0) % Plt Count 7 L* (150-450) k/uL Chloride 114 H (98-107) mmol/L Carbon Dioxide 21 L (22-30) mmol/L BUN 27 H (9-20) mg/dL Glucose 116 H (74-99) mg/dL Uric Acid (3.5-8.5) mg/dL Calcium 7.9 L (8.4-10.2) mg/dL Total Bilirubin 1.4 H (0.2-1.3) mg/dL AST 91 H (17-59) U/L ALT 163 H (21-72) U/L Alkaline Phosphatase 305 H (38-126) U/L Total Protein 4.9 L (6.3-8.2) g/dL Albumin 2.4 L (3.5-5.0) g/dL Crossmatch Microbiology - Last 24 Hours (Table) 06/24/18 11:54 Blood Culture - Preliminary Blood No Growth after 120 hours 06/24/18 11:48 Blood Culture - Preliminary Blood No Growth after 120 hours 06/23/18 10:22 Blood Culture - Final Blood No Growth after 144 hours Assessment and Plan Plan: Chest x-ray: report reviewed Assessment and Plan Neutropenia with fever - Not improved - Fevers worsened overnight with T-Max 102.5, Infectious disease is following. - He is not on anti-fungal at this time, although has increase liver function today, Repeat mckeon cultures and will ask ID to reassess if fevers spike again. - Continued on Neutropenic broad spectrum antibiotics - Chest Imaging X-Ray Revealed right lung infiltrate as a possible source, but this was actually improved from previous x-ray last admission. - Growth factors are not recommended at this time, as the patient has had induction chemotherapy and does not have proven remission yet. Pancytopenia due to antineoplastic chemotherapy - Secondary to AML, and induction chemotherapy. - Continue to monitor and transfuse as needed to keep hemoglobin above 7, and platelets above 10. - IRRADIATED BLOOD PRODUCTS ONLY - - Discontinue Ferrous Sulfate as Ferritin levels are elevated from repeated transfusions, supplemental iron not needed at this time - Stop Additional Supplementation with Vitamin C at this time not necessary and potentially may increase risk of bleeding/platlet function - Monitor Coag Factors, will check in am - Platlets 7 - transfuse one unit today - hgb recovered 7.7 after one unit bllod Acute myelogenous leukemia - Once count recovery has occurred, bone marrow aspiration biopsy will be repeated to check for induction remission. - If the patient does achieve remission, he'll be referred for bone marrow transplant. Otherwise plan for re-induction Elevated troponin - The patient has known coronary artery disease and history of [place]. - She is status post stent, placed in 09/07. Currently aspirin and Plavix had to be discontinued because of low platelets. - Risk-benefit has been discussed in detail by Dr. Andrade and patient - Cardiology Following - Smoking Cessation Re-mediation, Patient was actually smoking up to 06/08 but has quit since his prior admission Liver Transiminitis - Improved today - Discontinue Statin, Decrease dose of Acetaminophen and obtain abdominal ultrasoun - Likely secondary to medication - Improved today mildly - Reviewed ultrasound splenomegaly and uncomplicated cholelithiasis - MOnitor CMP Physician Attestation: I have completed the full history and physical, devloped the above impression and plan and agree with dictation by PANCHITO Ojeda
[2018-06-30] MEDS: CEFEPIME 2 GM in SODIUM CHLORIDE 0.9% 100 ML IVPB SCH ×3 (08:36→23:38)
[2018-06-30] MEDS: ISOSORBIDE MONONITRATE ER 30 MG TAB.ER.24H PO SCH (08:40)
[2018-06-30] MEDS: FOLIC ACID 1 MG TAB PO SCH (08:40)
[2018-06-30] MEDS: ALLOPURINOL 300 MG TAB PO SCH (08:40)
[2018-06-30] MEDS: ACYCLOVIR 200 MG CAP PO SCH ×2 (08:40→19:30)
[2018-06-30] MEDS: METOPROLOL SUCCINATE (ER) 25 MG TAB.ER.24H PO SCH (08:40)
--- NOTE | 2018-06-30 13:12 | P.PN ---
Subjective Progress Note Date: 06/30/18 06/30/2018: Patient seen and examined with his daughter at bedside. The patient is currently on room air. He states his breathing is good. He states he does have a cough which does produce some sputum. He denies fevers and chills. He states he is feeling much better overall. Objective - Vital Signs Vital signs: Vital Signs Temp 98.3 F 06/30/18 10:28 Pulse 95 06/30/18 10:28 Resp 20 06/30/18 10:28 BP 133/65 06/30/18 10:28 Pulse Ox 92 L 06/30/18 10:28 Intake & Output 06/29/18 06/30/18 06/30/18 18:59 06:59 18:59 Intake Total 240 410 596 Output Total 700 Balance -460 410 596 Weight 76.1 kg Intake: Intake, IV Titration 100 Amount Cefepime 2 gm In Sodium 100 Chloride 0.9% 100 ml @ 200 mls/hr IVPB Q8HR [facility] Rx#:[id number] Oral 240 240 Blood Product 0 310 356 Platelet Irr Pheresis 2 306 Acda Unit [id number] Rc Irr As1 Unit 0 310 [id number] Output: Urine 700 Other: Voiding Method Urinal # Voids 1 - Exam General: Patient is alert and oriented, no acute distress CV: RRR, s1/s2 Lungs: Diminished breath sounds otherwise clear Abd: Soft, NT/ND, +BS Ext: No edema - Labs CBC & Chem 7: 06/30/18 06:49 06/30/18 06:49 Labs: Abnormal Lab Results - Last 24 Hours (Table) 06/27/18 06/30/18 06/30/18 Range/Units 19:22 06:49 06:49 WBC 0.2 L* (3.8-10.6) k/uL RBC 2.70 L (4.30-5.90) m/uL Hgb 7.7 L (13.0-17.5) gm/dL Hct 23.1 L (39.0-53.0) % Plt Count 7 L* (150-450) k/uL Chloride 114 H (98-107) mmol/L Carbon Dioxide 21 L (22-30) mmol/L BUN 27 H (9-20) mg/dL Glucose 116 H (74-99) mg/dL Calcium 7.9 L (8.4-10.2) mg/dL Total Bilirubin 1.4 H (0.2-1.3) mg/dL AST 91 H (17-59) U/L ALT 163 H (21-72) U/L Alkaline Phosphatase 305 H (38-126) U/L Total Protein 4.9 L (6.3-8.2) g/dL Albumin 2.4 L (3.5-5.0) g/dL Crossmatch See Detail Microbiology - Last 24 Hours (Table) 06/24/18 11:54 Blood Culture - Preliminary Blood No Growth after 120 hours 06/24/18 11:48 Blood Culture - Preliminary Blood No Growth after 120 hours 06/23/18 10:22 Blood Culture - Final Blood No Growth after 144 hours Assessment and Plan Assessment: Acute hypoxic respiratory failure, resolved, patient now on RA Acute exacerbation of COPD Neutropenic fever, sepsis Left mid lung infiltrate Pancytopenia NAGMA SAILAJA improving Transaminitis Moderate PCM AML O2 to maintain saturation > or = 88% Bronchodilators ABX per ID GI and DVT prophylaxis IS and pulmonary hygiene Cultures negative to date Continue supportive care
[2018-06-30 14:01] LABS: Mean Platelet Volume 7.5
[2018-06-30 14:16] LABS: Platelet Count 23 k/uL (150-450)
[2018-06-30] MEDS: HYDROcodone/APAP 5-325MG 1 EACH TAB PO PRN ×3 (15:41→23:43)
--- NOTE | 2018-06-30 16:23 | PN ---
PROGRESS NOTE DATE OF SERVICE: 06/30/2018. REASON FOR FOLLOW UP: Febrile neutropenia and pneumonia. INTERVAL HISTORY: The patient is afebrile with no fever recorded in the last 48 hours. The patient overall is feeling better. He is breathing comfortably. The patient denies having any chest pain. No cough. No abdominal pain. No nausea, vomiting and no diarrhea. PHYSICAL EXAMINATION: Blood pressure 142/67 with a pulse of 91. Temperature is 97.7, he is 97% on room air. General description is a middle-aged male lying in bed in no distress. Respiratory system: Unlabored breathing with decreased intensity of breath sounds. No wheeze. Heart S1, S2. Regular rate and rhythm. Abdomen soft. No tenderness. LABS: Hemoglobin 7.7, white count 0.2. BUN of 27, creatinine 0.97. Liver enzymes continue to improve. Cultures have been negative. DIAGNOSTIC IMPRESSION AND PLAN: Patient admitted to the hospital with febrile neutropenia with concern for pneumonia. The patient fever responded to addition of Levaquin that will be continue with cefepime. 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 Discharge antibiotic will be Levaquin 750 daily for another 7-10 days with close outpatient followup. Continue supportive care. MMODL / IJN: [id number] /
--- NOTE | 2018-06-30 16:58 | P.GSCN ---
History of Present Illness Consult date: 06/30/18 Reason for Consult: Chronic dental pain History of present illness: This is a 62-year-old gentleman with past medical history significant for CML, lymphoma, coronary artery disease and most recently AML. Recent hospital stay problems include pancytopenia. Recent episode of COPD exacerbation with respiratory failure for which she is recovering. His dental state is chronic severe periodontal disease which he is aware. He is pulled multiple teeth on his own. I was consulted to evaluate for possible extraction of the rest of his teeth. Review of Systems Alert and oriented 3 the patient's laying in bed. Easily arousable. Good historian and reports general fatigue but otherwise improving. - EENT EENT Comment(s): Occasional mouth pain when attempting to chew. No trouble swallowing or breathing. No swelling that he can feel. Past Medical History Past Medical History: Cancer, Myocardial Infarction ([place]), Pneumonia Additional Past Medical History / Comment(s): 2000 diagnosed with CLL treated with chemo successfully, 08/2014 R side back mass-diffuse large B cell lymphoma treated with chemo, 11/2016 recurrent R back mass-diffuse large B cell lymphoma with current chemo, pancytopenia, ITP, anemia, pneumonia with sepsis, 02/20/17 NSTEMI with heart cath-tx medically. Last Myocardial Infarction Date:: 02/20/17 History of Any Multi-Drug Resistant Organisms: None Reported Past Surgical History: Heart Catheterization Additional Past Surgical History / Comment(s): 02/20/17 cardiac cath, 2000 BMA, R upper back mass-needle bxs, colonoscopy-normal, power port. Past Anesthesia/Blood Transfusion Reactions: No Reported Reaction Additional Past Anesthesia/Blood Transfusion Reaction / Comm: Pt has received blood in the past without reaction. 02/20/17 pt had chest pain/SOB (NSTEMI) 1 day post transfusion. Past Psychological History: No Psychological Hx Reported Additional Psychological History / Comment(s): Patient's adult daughter lives with him. There are no animals in the home. He is an ongoing tobacco smoker of at least one pack per day. Alcohol only rarely-many years ago he states he drank heavier. Denies significant injection drug use or other recreational drug use at this time. No experience. No recent travels. No international travel. 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 He does not have experience. He does not have extensive international travel. His never been to the [facility]. No animal exposures in the home at this time. Smoking Status: Former smoker Past Alcohol Use History: None Reported Additional Past Alcohol Use History / Comment(s): Pt started smoking in 1969 and was a ppd smoker. He states he is cutting back on how much he smokes and knows he needs to quit. He drinks alcohol rarely for many years. Past Drug Use History: None Reported - Past Family History Father Additional Family Medical History / Comment(s): Father was an alcoholic. He committed suicide. Mother Family Medical History: Cancer Additional Family Medical History / Comment(s): Mother had Breast Cancer 25 yrs ago. She is 85yrs old. Medications and Allergies Home Medications Medication Instructions Recorded Confirmed Type Vitamin B Complex 1 cap PO DAILY 12/11/16 06/23/18 History Folic Acid 0.4 mg PO DAILY 02/18/17 06/23/18 History Isosorbide Mononitrate ER [Imdur] 30 mg PO DAILY #30 tab 04/16/17 06/23/18 Rx Ascorbic Acid [Vitamin C] 500 mg PO DAILY 06/02/18 06/23/18 History Atorvastatin [Lipitor] 80 mg PO DAILY 06/02/18 06/23/18 History Acyclovir [Zovirax] 400 mg PO BID #42 tab 06/13/18 06/23/18 Rx Allopurinol [Zyloprim] 300 mg PO DAILY #21 tablet 06/13/18 06/23/18 Rx Levofloxacin [Levaquin] 500 mg PO DAILY #21 tab 06/13/18 06/23/18 Rx Ferrous Sulfate [Feosol] 325 mg PO DAILY 06/23/18 06/23/18 History Metoprolol Succinate [Toprol XL] 25 mg PO DAILY 06/23/18 06/23/18 History Allergies Allergy/AdvReac Type Severity Reaction Status Date / Time No Known Allergies Allergy Verified 06/23/18 10:49 Surgical - Exam Vital Signs Temp Pulse Resp BP Pulse Ox 99.4 F 109 H 18 77/46 97 06/23/18 09:54 06/23/18 09:54 06/23/18 09:54 06/23/18 09:54 06/23/18 09:54 Patient's able open his mouth completely with no difficulty. No intraoral swelling noted. The patient's remaining teeth are in severe disrepair with chronic ulcers peering around the lower left teeth. This ulcer could represent severe periodontal disease or pathology. Upper right tooth is very loose. Results - Labs 06/30/18 12:27 06/30/18 06:49 Abnormal Lab Results - Last 24 Hours (Table) 06/27/18 06/30/18 06/30/18 Range/Units 19:22 06:49 06:49 WBC 0.2 L* (3.8-10.6) k/uL RBC 2.70 L (4.30-5.90) m/uL Hgb 7.7 L (13.0-17.5) gm/dL Hct 23.1 L (39.0-53.0) % Plt Count 7 L* (150-450) k/uL Chloride 114 H (98-107) mmol/L Carbon Dioxide 21 L (22-30) mmol/L BUN 27 H (9-20) mg/dL Glucose 116 H (74-99) mg/dL Calcium 7.9 L (8.4-10.2) mg/dL Total Bilirubin 1.4 H (0.2-1.3) mg/dL AST 91 H (17-59) U/L ALT 163 H (21-72) U/L Alkaline Phosphatase 305 H (38-126) U/L Total Protein 4.9 L (6.3-8.2) g/dL Albumin 2.4 L (3.5-5.0) g/dL Crossmatch See Detail 06/30/18 Range/Units 12:27 WBC (3.8-10.6) k/uL RBC (4.30-5.90) m/uL Hgb (13.0-17.5) gm/dL Hct (39.0-53.0) % Plt Count 23 L D (150-450) k/uL Chloride (98-107) mmol/L Carbon Dioxide (22-30) mmol/L BUN (9-20) mg/dL Glucose (74-99) mg/dL Calcium (8.4-10.2) mg/dL Total Bilirubin (0.2-1.3) mg/dL AST (17-59) U/L ALT (21-72) U/L Alkaline Phosphatase (38-126) U/L Total Protein (6.3-8.2) g/dL Albumin (3.5-5.0) g/dL Crossmatch Microbiology - Last 24 Hours (Table) 06/24/18 11:54 Blood Culture - Final Blood No Growth after 144 hours 06/24/18 11:48 Blood Culture - Final Blood No Growth after 144 hours 06/23/18 10:22 Blood Culture - Final Blood No Growth after 144 hours Diabetes panel 06/30/18 Range/Units 06:49 Sodium 141 (137-145) mmol/L Potassium 3.7 (3.5-5.1) mmol/L Chloride 114 H (98-107) mmol/L Carbon Dioxide 21 L (22-30) mmol/L BUN 27 H (9-20) mg/dL Creatinine 0.97 (0.66-1.25) mg/dL Glucose 116 H (74-99) mg/dL Calcium 7.9 L (8.4-10.2) mg/dL AST 91 H (17-59) U/L ALT 163 H (21-72) U/L Alkaline Phosphatase 305 H (38-126) U/L Total Protein 4.9 L (6.3-8.2) g/dL Albumin 2.4 L (3.5-5.0) g/dL Calcium panel 06/30/18 Range/Units 06:49 Calcium 7.9 L (8.4-10.2) mg/dL Albumin 2.4 L (3.5-5.0) g/dL Pituitary panel 06/30/18 Range/Units 06:49 Sodium 141 (137-145) mmol/L Potassium 3.7 (3.5-5.1) mmol/L Chloride 114 H (98-107) mmol/L Carbon Dioxide 21 L (22-30) mmol/L BUN 27 H (9-20) mg/dL Creatinine 0.97 (0.66-1.25) mg/dL Glucose 116 H (74-99) mg/dL Calcium 7.9 L (8.4-10.2) mg/dL Adrenal panel 06/30/18 Range/Units 06:49 Sodium 141 (137-145) mmol/L Potassium 3.7 (3.5-5.1) mmol/L Chloride 114 H (98-107) mmol/L Carbon Dioxide 21 L (22-30) mmol/L BUN 27 H (9-20) mg/dL Creatinine 0.97 (0.66-1.25) mg/dL Glucose 116 H (74-99) mg/dL Calcium 7.9 L (8.4-10.2) mg/dL Total Bilirubin 1.4 H (0.2-1.3) mg/dL AST 91 H (17-59) U/L ALT 163 H (21-72) U/L Alkaline Phosphatase 305 H (38-126) U/L Total Protein 4.9 L (6.3-8.2) g/dL Albumin 2.4 L (3.5-5.0) g/dL Assessment and Plan Assessment: Chronic periodontal disease. Plan: Due to pancytopenia with extremely low platelet count no dental extractions at this time. Recommend patient become medically stable prior to dental ex tractions. Upper right tooth being so loose recommend soft diet until removed. Lower left teeth with ulcer recommended extraction and reevaluation in approximately 2 weeks. If the ulcer has not resolved possible biopsy in the future. Discussed with patient need for follow-up in my office in 1 week to evaluate the plan he is instructed to bring his most recent labs. Patient is on multiple te eth pulled under local anesthesia and understands this will be done with no sedation. Time with Patient: Less than 30
--- NOTE | 2018-06-30 17:59 | CT ---
EXAMINATION TYPE: CT facial bones wo con DATE OF EXAM: 06/30/2018 COMPARISON: None HISTORY: Dental pain/abscess CT DLP: 410.8 mGycm Automated exposure control for dose reduction was used. TECHNIQUE: CT scan of the sinuses is performed without contrast, axial images are obtained, coronal r eformatted images are also reviewed. FINDINGS: The mandibular ring appears intact. There are multiple missing upper and lower teeth. There is mucosal thickening in the maxillary ethmoid and frontal sinuses. There is minimal mucosal thicken ing posterior sphenoid sinus. Orbital margins are intact. There is no evidence of retro-orbital mass. The maxilla is intact. There is significant volume loss involving the roots of the teeth consistent with periodontal disease. IMPRESSION: Extensive upper and lower periodontal disease. No fracture. No evidence of osteomyelitis. Pansinusitis.
[2018-06-30] MEDS: LEVOFLOXACIN 750 MG TAB PO SCH (19:31)
--- NOTE | 2018-06-30 22:51 | PN ---
PROGRESS NOTE SUBJECTIVE: 62-year-old white male who still has a significant pancytopenia. Platelet transfusions done today. Platelets were up to 23,000 at this time. His blood count stabilized. He may be able to be sent home possibly in the near future. Dr. Mallory saw him for periodontal disease today. Multiple labs were reviewed. No dental extractions due to severe pancytopenia at this time. Medically stable, then dental extractions. Soft diet. Extraction will be re-evaluation in 2 weeks lower teeth. Continue broad- spectrum antibiotics. CARDIOVASCULAR: S1, S2. Lungs clear. GI soft. Hematology negative Homans. Psych: Fair mood and affect. Dr. Richey recommendations were reviewed. He has had no nausea, vomiting, diarrhea. No fever in the last 24-48 hours. Once pancytopenia stabilizes, he may be able to be discharged home. ASSESSMENT: Febrile neutropenia, concern for pneumonia. Patient's fever responded to additional Levaquin that will be continued with the cefepime. Continue with Levaquin 750 for another 7 to 10 days once cleared by Oncology/Hematology for discharge. MMODL / IJN: [id number] /
[2018-07-01] MEDS: HYDROcodone/APAP 5-325MG 1 EACH TAB PO PRN ×5 (04:50→21:11)
[2018-07-01 07:33] LABS: HCT 24.2 % (39.0-53.0); HGB 7.8 gm/dL (13.0-17.5); MCH 28.9 pg (25.0-35.0); MCHC 32.3 g/dL (31.0-37.0); MCV 89.4 fL (80.0-100.0); RBC 2.71 m/uL (4.30-5.90); RDW 15.4 % (11.5-15.5)
[2018-07-01 07:43] LABS: Platelet Count 17 k/uL (150-450); WBC 0.2 k/uL (3.8-10.6)
[2018-07-01 08:19] LABS: ALT 137 U/L (21-72); AST 67 U/L (17-59); Albumin 2.5 g/dL (3.5-5.0); Alkaline Phosphatase 277 U/L (38-126); Anion Gap 7 mmol/L; Blood Urea Nitrogen 24 mg/dL (9-20); Calcium 8.1 mg/dL (8.4-10.2); Carbon Dioxide 22 mmol/L (22-30); Chloride 113 mmol/L (98-107); Glucose 113 mg/dL (74-99); Potassium 3.9 mmol/L (3.5-5.1); Sodium 142 mmol/L (137-145); Total Bilirubin 1.3 mg/dL (0.2-1.3)
[2018-07-01] MEDS: ISOSORBIDE MONONITRATE ER 30 MG TAB.ER.24H PO SCH (08:56)
[2018-07-01] MEDS: ACYCLOVIR 200 MG CAP PO SCH ×2 (08:56→21:33)
[2018-07-01] MEDS: ALLOPURINOL 300 MG TAB PO SCH (08:57)
[2018-07-01] MEDS: METOPROLOL SUCCINATE (ER) 25 MG TAB.ER.24H PO SCH (08:57)
[2018-07-01 11:36] LABS: Anisocytosis (M) Present; Poikilocytosis (M) Present
[2018-07-01] MEDS: FOLIC ACID 1 MG TAB PO SCH (12:53)
--- NOTE | 2018-07-01 17:16 | PN ---
PROGRESS NOTE DATE OF SERVICE: July 01, 2018. He is hemodynamically stable and is feeling better overall. He is afebrile. On physical examination, his blood pressure is 122/65, respiratory rate of 18, pulse 83, temperature 97.1. HEENT is unremarkable. Chest is clear. Cardiovascular system is S1, S2. Abdomen is soft. There is no pedal edema. Blood cultures had shown no growth. White blood cell count is 0.2 thousand, hemoglobin of 7.8, platelet count of 17,000. IMPRESSION: At this time: 1. Neutropenic sepsis. Pneumonia. 2. Pancytopenia with significant neutropenia and thrombocytopenia. Continue supportive care with blood and blood products. Continue IV antibiotics. Continue IV fluids. Increase activity level. His prognosis at this time is guarded. MMODL / IJN: [id number] /
--- NOTE | 2018-07-01 20:04 | PN ---
PROGRESS NOTE DATE OF SERVICE: 07/01/2018 REASON FOR FOLLOWUP: Febrile neutropenia and pneumonia. INTERVAL HISTORY: The patient is currently afebrile. He has been breathing comfortably. Denies having any chest pain or cough. No nausea. No vomiting. No abdominal pain or diarrhea. PHYSICAL EXAMINATION: Blood pressure 130/65 with a pulse of 104, temperature 99.3. He is 96% on room air. General description is a middle-aged male lying in bed in no distress. RESPIRATORY SYSTEM: Unlabored breathing. Clear to auscultation anteriorly. HEART: S1, S2. Regular rate and rhythm. ABDOMEN: Soft. No tenderness. LABS: Hemoglobin 7.8, white count 0.2 with a BUN of 24, creatinine 0.96. Liver enzymes are mildly elevated. Culture has been negative. DIAGNOSTIC IMPRESSION AND PLAN: Patient admitted to hospital with febrile neutropenia with concern for right upper lobe pneumonia. The patient's fever has resolved with addition of the oral Levaquin. That will be continued to finish the course of therapy. Continue with supportive care. MMODL / IJN: [id number] /
[2018-07-01] MEDS: LEVOFLOXACIN 750 MG TAB PO SCH (21:13)
--- NOTE | 2018-07-01 23:17 | P.PN ---
Subjective Progress Note Date: 07/01/18 Principal diagnosis: AML platelets 17 today. He is feeling a little better compared to yesterday but still not "there" yet. He has remained afebrile. Objective - Vital Signs Vital signs: Vital Signs Temp 99.4 F 07/01/18 20:00 Pulse 102 H 07/01/18 20:00 Resp 20 07/01/18 20:00 BP 113/63 07/01/18 20:00 Pulse Ox 95 07/01/18 20:00 Intake & Output 07/01/18 07/01/18 07/02/18 06:59 18:59 06:59 Intake Total 400 1920 Output Total 250 350 Balance 400 1670 -350 Weight 74.8 kg 74.8 kg Intake: Intake, IV Titration 100 Amount Cefepime 2 gm In Sodium 100 Chloride 0.9% 100 ml @ 200 mls/hr IVPB Q8HR TAMI Rx#:[id number] Oral 300 1920 Output: Urine 250 350 Other: Voiding Method Urinal Urinal Urinal # Voids 1 1 - Exam - EENT Eyes: EOMI, PERRLA ENT: hearing grossly normal, normal oropharynx Dentition poor loose teeth patient is tuggih at - Neck Neck: no lymphadenopathy Thyroid: bilateral: normal size - Respiratory Respiratory: bilateral: CTA - Cardiovascular Rhythm: regular Heart sounds: normal: S1, S2 - Gastrointestinal General gastrointestinal: normal bowel sounds, soft - Integumentary Integumentary: normal - Neurologic Neurologic: CNII-XII intact - Musculoskeletal Musculoskeletal: generalized weakness, strength equal bilaterally - Psychiatric Psychiatric: A&O x's 3, appropriate affect - Labs CBC & Chem 7: 07/01/18 06:44 07/01/18 06:44 Labs: Abnormal Lab Results - Last 24 Hours (Table) 07/01/18 07/01/18 Range/Units 06:44 06:44 WBC 0.2 L* (3.8-10.6) k/uL RBC 2.71 L (4.30-5.90) m/uL Hgb 7.8 L (13.0-17.5) gm/dL Hct 24.2 L (39.0-53.0) % Plt Count 17 L* (150-450) k/uL Chloride 113 H (98-107) mmol/L BUN 24 H (9-20) mg/dL Glucose 113 H (74-99) mg/dL Calcium 8.1 L (8.4-10.2) mg/dL AST 67 H (17-59) U/L ALT 137 H (21-72) U/L Alkaline Phosphatase 277 H (38-126) U/L Total Protein 5.0 L (6.3-8.2) g/dL Albumin 2.5 L (3.5-5.0) g/dL Microbiology - Last 24 Hours (Table) 06/30/18 13:22 Gram Stain - Preliminary Sputum Sputum Culture - Preliminary Assessment and Plan Plan: Chest x-ray: report reviewed Assessment and Plan Neutropenia with fever - Not improved - Fevers worsened overnight with T-Max 102.5, Infectious disease is following. - He is not on anti-fungal at this time, although has increase liver function today, Repeat mckeon cultures and will ask ID to reassess if fevers spike again. - Continued on Neutropenic broad spectrum antibiotics - Chest Imaging X-Ray Revealed right lung infiltrate as a possible source, but this was actually improved from previous x-ray last admission. - Growth factors are not recommended at this time, as the patient has had induction chemotherapy and does not have proven remission yet. Pancytopenia due to antineoplastic chemotherapy - Secondary to AML, and induction chemotherapy. - Continue to monitor and transfuse as needed to keep hemoglobin above 7, and platelets above 10. - IRRADIATED BLOOD PRODUCTS ONLY - - Discontinue Ferrous Sulfate as Ferritin levels are elevated from repeated transfusions, supplemental iron not needed at this time - Stop Additional Supplementation with Vitamin C at this time not necessary and potentially may increase risk of bleeding/platlet function - Monitor Coag Factors, will check in am - Platlets 17 - no transfusion today Acute myelogenous leukemia - Once count recovery has occurred, bone marrow aspiration biopsy will be repeated to check for induction remission. - If the patient does achieve remission, he'll be referred for bone marrow transplant. Otherwise plan for re-induction Elevated troponin - The patient has known coronary artery disease and history of SC. - She is status post stent, placed in 09/07. Currently aspirin and Plavix had to be discontinued because of low platelets. - Risk-benefit has been discussed in detail by Dr. Andrade and patient - Cardiology Following - Smoking Cessation Re-mediation, Patient was actually smoking up to 06/08 but has quit since his prior admission Liver Transiminitis - Discontinue Statin, Decrease dose of Acetaminophen and obtain abdominal ultrasoun - Likely secondary to medication - Improved today mildly - Reviewed ultrasound splenomegaly and uncomplicated cholelithiasis - MOnitor CMP Plan: - Blood Count is slow to recover, if no recovery within the next 2 days will plan Bone Marrow Biopsy to assess for remission status response to induction c hemotherapy. - Patient remaining afebrile ok discharge on PO Antibiotics if ok with Infectious disease. WIll discuss further with ID for recommendations - PRN Transfusions irradiated blood products, if patient is discharged to have CBC drawn every other day in office for likely transfusion support. - CBC and CMP in am Physician Attest: I have completed the full history and physical of this patient and deveoped the above impression and plan, agree with dictation by Rosa FLANAGAN, Dictated as a scribe
[2018-07-02] MEDS: HYDROcodone/APAP 5-325MG 1 EACH TAB PO PRN ×4 (03:57→20:08)
[2018-07-02 07:07] LABS: HCT 22.7 % (39.0-53.0); HGB 7.6 gm/dL (13.0-17.5); MCH 29.4 pg (25.0-35.0); MCHC 33.6 g/dL (31.0-37.0); MCV 87.4 fL (80.0-100.0); Mean Platelet Volume 7.3; RDW 15.5 % (11.5-15.5)
[2018-07-02 07:12] LABS: Platelet Count 11 k/uL (150-450); WBC 0.2 k/uL (3.8-10.6)
[2018-07-02 07:36] LABS: Albumin 2.7 g/dL (3.5-5.0); Calcium 8.2 mg/dL (8.4-10.2); Potassium 4.2 mmol/L (3.5-5.1); Total Bilirubin 1.3 mg/dL (0.2-1.3)
[2018-07-02] MEDS: ACYCLOVIR 200 MG CAP PO SCH ×2 (08:15→20:45)
[2018-07-02] MEDS: METOPROLOL SUCCINATE (ER) 25 MG TAB.ER.24H PO SCH (08:15)
[2018-07-02] MEDS: ALLOPURINOL 300 MG TAB PO SCH (08:15)
[2018-07-02] MEDS: ISOSORBIDE MONONITRATE ER 30 MG TAB.ER.24H PO SCH (08:15)
[2018-07-02 11:07] LABS: Anisocytosis (M) Present; Poikilocytosis (M) Present
[2018-07-02 12:08] VITALS: BMI 21.9
[2018-07-02] MEDS: FOLIC ACID 1 MG TAB PO SCH (12:21)
--- NOTE | 2018-07-02 17:08 | P.PN ---
Subjective Progress Note Date: 07/02/18 Principal diagnosis: AML platelets 11 today, no bleeding Objective - Vital Signs Vital signs: Vital Signs Temp 98.6 F 07/02/18 15:49 Pulse 107 H 07/02/18 15:49 Resp 18 07/02/18 15:49 BP 119/65 07/02/18 15:49 Pulse Ox 96 07/02/18 15:49 Intake & Output 07/01/18 07/02/18 07/02/18 18:59 06:59 18:59 Intake Total 1920 360 Output Total 250 350 Balance 1670 -350 360 Weight 74.8 kg 73.4 kg 73.4 kg Intake: Oral 1920 360 Output: Urine 250 350 Other: Voiding Method Urinal Urinal # Voids 1 1 1 - Exam - EENT Eyes: EOMI, PERRLA ENT: hearing grossly normal, normal oropharynx Dentition poor loose teeth patient is tuggih at - Neck Neck: no lymphadenopathy Thyroid: bilateral: normal size - Respiratory Respiratory: bilateral: CTA - Cardiovascular Rhythm: regular Heart sounds: normal: S1, S2 - Gastrointestinal General gastrointestinal: normal bowel sounds, soft - Integumentary Integumentary: normal - Neurologic Neurologic: CNII-XII intact - Musculoskeletal Musculoskeletal: generalized weakness, strength equal bilaterally - Psychiatric Psychiatric: A&O x's 3, appropriate affect - Labs CBC & Chem 7: 07/02/18 06:21 07/02/18 06:21 Labs: Abnormal Lab Results - Last 24 Hours (Table) 07/02/18 07/02/18 Range/Units 06:21 06:21 WBC 0.2 L* (3.8-10.6) k/uL RBC 2.60 L (4.30-5.90) m/uL Hgb 7.6 L (13.0-17.5) gm/dL Hct 22.7 L (39.0-53.0) % Plt Count 11 L* (150-450) k/uL Chloride 110 H (98-107) mmol/L BUN 22 H (9-20) mg/dL Glucose 133 H (74-99) mg/dL Calcium 8.2 L (8.4-10.2) mg/dL ALT 103 H (21-72) U/L Alkaline Phosphatase 280 H (38-126) U/L Total Protein 5.0 L (6.3-8.2) g/dL Albumin 2.7 L (3.5-5.0) g/dL Microbiology - Last 24 Hours (Table) 06/30/18 13:22 Gram Stain - Final Sputum Sputum Culture - Final Assessment and Plan Plan: Chest x-ray: report reviewed Assessment and Plan Neutropenia with fever - Not improved - Fevers worsened overnight with T-Max 102.5, Infectious disease is following. - He is not on anti-fungal at this time, although has increase liver function today, Repeat mckeon cultures and will ask ID to reassess if fevers spike again. - Continued on Neutropenic broad spectrum antibiotics - Chest Imaging X-Ray Revealed right lung infiltrate as a possible source, but this was actually improved from previous x-ray last admission. - Growth factors are not recommended at this time, as the patient has had induction chemotherapy and does not have proven remission yet. Pancytopenia due to antineoplastic chemotherapy - Secondary to AML, and induction chemotherapy. - Continue to monitor and transfuse as needed to keep hemoglobin above 7, and platelets above 10. - IRRADIATED BLOOD PRODUCTS ONLY - - Discontinue Ferrous Sulfate as Ferritin levels are elevated from repeated transfusions, supplemental iron not needed at this time - Stop Additional Supplementation with Vitamin C at this time not necessary and potentially may increase risk of bleeding/platlet function - Monitor Coag Factors, will check in am - [id number] - No transfusion today Acute myelogenous leukemia - Once count recovery has occurred, bone marrow aspiration biopsy will be repeated to check for induction remission. - If the patient does achieve remission, he'll be referred for bone marrow transplant. Otherwise plan for re-induction Elevated troponin - The patient has known coronary artery disease and history of [place]. - She is status post stent, placed in 09/07. Currently aspirin and Plavix had to be discontinued because of low platelets. - Risk-benefit has been discussed in detail by Dr. Andrade and patient - Cardiology Following - Smoking Cessation Re-mediation, Patient was actually smoking up to 06/08 but has quit since his prior admission Liver Transiminitis - Improved today - Discontinue Statin, Decrease dose of Acetaminophen and obtain abdominal ultrasoun - Likely secondary to medication - Improved today mildly - Reviewed ultrasound splenomegaly and uncomplicated cholelithiasis - MOnitor CMP Plan: - Check CBC in Am, may need another transfusion of platlets if less than 10, then may discharge and follow-up thursday in office. Physician Attestation: I have completed the full history and physical, devloped the above impression and plan and agree with dictation by PANCHITO Ojeda
--- NOTE | 2018-07-02 17:58 | PN ---
PROGRESS NOTE DATE OF SERVICE: 07/02/2018 REASON FOR FOLLOWUP: Febrile neutropenia and pneumonia. INTERVAL HISTORY: The patient is currently afebrile. Patient has been breathing comfortably. Denies having any chest pain. Very minimal cough. No nausea or vomiting. No abdominal pain and no diarrhea. PHYSICAL EXAMINATION: Blood pressure 119/67 with a pulse of 97, temperature 98.7. He is 96% on room air. General description is a middle-aged male up in the room in no distress. RESPIRATORY SYSTEM: Unlabored breathing. Decreased intensity of breath sounds. No wheeze. HEART: S1, S2. Regular rate and rhythm. ABDOMEN: Soft. No tenderness. LABS: Hemoglobin is 7.6, white count 0.2 with a BUN of 22, creatinine 1.02. DIAGNOSTIC IMPRESSION AND PLAN: Patient admitted to hospital with febrile neutropenia. The patient did have a component of pneumonia. Patient's blood culture has been negative. Sputum has been usual respiratory porsche. Currently on Levaquin, with overall resolution of his fever. Will continue Levaquin for another week for finish course of therapy. Continue with supportive care. MMODL / IJN: [id number] /
--- NOTE | 2018-07-02 19:56 | PN ---
PROGRESS NOTE DATE OF SERVICE: July 02, 2018. The patient has been hemodynamically stable. He does not complain of shortness of breath. His blood pressure is 119/65, respiratory rate of 18, pulse rate of 107, temperature 98.6, O2 saturation on room air is 96%. HEENT: Unremarkable. Chest is clear. Cardiovascular system reveals S1, S2. Abdomen is soft. There is no edema. Sodium is 139, potassium 4.2, chloride 110, bicarb 24, BUN 22, creatinine 1.02. White count 0.2, hemoglobin of 7.6, platelet count of 11. IMPRESSION: At this time is: 1. Neutropenic sepsis. 2. Acute myeloid leukemia status post chemotherapy. 3. Pancytopenia secondary to chemotherapy. Increase his activity level. Would keep him on Levaquin per ID. Continue Levaquin for another week. If he is afebrile tomorrow and otherwise stable, discharge planning will be for tomorrow. MMODL / IJN: [id number] /
[2018-07-02] MEDS: LEVOFLOXACIN 750 MG TAB PO SCH (20:08)
[2018-07-03 06:38] LABS: HCT 23.6 % (39.0-53.0); HGB 7.8 gm/dL (13.0-17.5); MCH 28.9 pg (25.0-35.0); MCV 87.6 fL (80.0-100.0); Mean Platelet Volume 7.3; RBC 2.69 m/uL (4.30-5.90); RDW 14.7 % (11.5-15.5)
[2018-07-03] MEDS: HYDROcodone/APAP 5-325MG 1 EACH TAB PO PRN ×2 (06:38→11:05)
[2018-07-03 07:14] LABS: Platelet Count 12 k/uL (150-450); WBC 0.2 k/uL (3.8-10.6)
[2018-07-03] MEDS: ISOSORBIDE MONONITRATE ER 30 MG TAB.ER.24H PO SCH (08:00)
[2018-07-03] MEDS: ACYCLOVIR 200 MG CAP PO SCH (08:00)
[2018-07-03] MEDS: ALLOPURINOL 300 MG TAB PO SCH (08:00)
[2018-07-03] MEDS: METOPROLOL SUCCINATE (ER) 25 MG TAB.ER.24H PO SCH (08:00)
[2018-07-03] MEDS: FOLIC ACID 1 MG TAB PO SCH (08:00)
[2018-07-03] MEDS: ACETAMINOPHEN TAB 325 MG TAB PO PRN (08:01)
[2018-07-03 11:11] VITALS: BP 118/56; PULSE 99; RESP 16; TEMP 97.8
--- NOTE | 2018-07-03 19:42 | DS ---
DISCHARGE SUMMARY Viraj Nevarez is a 62-year-old male who presented to the ED at [facility] 06/23/2018. At that time, he had come in with fever. He felt very lightheaded. He had undergone his 1st round of chemotherapy for history of acute myelogenous leukemia or AML. He was admitted for further evaluation and management at the time. PAST MEDICAL HISTORY: Positive for AML, previous CLL, previous diffuse large B-cell lymphoma. History of myocardial infarction, pneumonia, cancer in the past, cardiac catheterization, colonoscopy. FAMILY HISTORY: Was positive for alcoholism and depression in his father. Cancer in his mother. PHYSICAL EXAMINATION: Vital signs were stable. He is afebrile. His chest reveals decreased breath sounds. Cardiovascular system was S1, S2. Abdomen was soft. There was no edema. Initial impression was neutropenic sepsis, pancytopenia. The patient was subsequently seen by ID and hematology oncology. He received platelet transfusions and packed cells as needed. He was kept on broad-spectrum antibiotics to cover for anaerobes and gram negatives. He subsequently was switched to oral Levaquin, had been doing well. He continued to have neutropenia and pancytopenia and will have close outpatient followup with Oncology. Today on physical examination he was lying in bed. He was in no distress. His heart rate was 99, respiratory rate of 16, temperature 97.8, blood pressure 118/56. HEENT was unremarkable. Chest was clear. Cardiovascular system reveals an S1, S2. Abdomen is soft. There was no edema. White count was 0.2 1000, hemoglobin 7.8, platelet count of 12,000. Patient will be discharged home today. He will follow up with Dr. Jona Farley in 1 weeks time, with Dr. Jeffry Andrade in 2-3 days time. DISCHARGE DIAGNOSES: 1. Neutropenic sepsis. 2. Pneumonia. 3. Acute myelogenous leukemia. 4. Pancytopenia. 5. Acute renal failure. 6. Severe sepsis. CONDITION: Stable. DIET: Regular. ACTIVITY: As tolerated. DISCHARGE MEDICATIONS: 1. Levaquin 750 mg p.o. daily for 7 days. 2. Ferrous sulfate 325 mg p.o. daily. 3. Metoprolol succinate to 25 mg p.o. daily. 4. Vitamin B complex 1 capsule daily. 5. Imdur 30 mg daily. 6. Folic acid 0.4 mg daily. 7. Lipitor 80 mg daily. 8. Ascorbic acid 500 mg daily. 9. Zyloprim 300 mg daily. 10.Acyclovir 400 mg p.o. b.i.d. ISACC / NANCY: [id number] /
== END 2018-07-03 13:13 | disposition home or self-care (01) | DRG 871 ==
LOC: EC 09:50 → 3SCARD 12:51
PROVIDERS: ADMIT Family Medicine; ATTEND Family Medicine
PROC: 30233N1 Transfusion of Nonautologous Red Blood Cells into Peripheral Vein, Percutaneous Approach (ICD-10-PCS; 2018-06-24)
PROC: 30233R1 Transfusion of Nonautologous Platelets into Peripheral Vein, Percutaneous Approach (ICD-10-PCS; principal; 2018-06-25)
DX: A41.9 Sepsis, unspecified organism (principal); D61.810 Antineoplastic chemotherapy induced pancytopenia; J69.0 Pneumonitis due to inhalation of food and vomit; J96.01 Acute respiratory failure with hypoxia; C92.00 Acute myeloblastic leukemia, not having achieved remission; E44.0 Moderate protein-calorie malnutrition; E87.2 Acidosis; J44.1 Chronic obstructive pulmonary disease with (acute) exacerbation; N17.9 Acute kidney failure, unspecified; Z85.72 Personal history of non-Hodgkin lymphomas; E78.5 Hyperlipidemia, unspecified; Z71.6 Tobacco abuse counseling; F17.210 Nicotine dependence, cigarettes, uncomplicated; G89.29 Other chronic pain; R74.8 Abnormal levels of other serum enzymes; I25.2 Old myocardial infarction; I25.10 Atherosclerotic heart disease of native coronary artery without angina pectoris; I25.82 Chronic total occlusion of coronary artery; I45.10 Unspecified right bundle-branch block; K05.6 Periodontal disease, unspecified; K80.20 Calculus of gallbladder without cholecystitis without obstruction; R65.20 Severe sepsis without septic shock; T45.1X5A Adverse effect of antineoplastic and immunosuppressive drugs, initial encounter; Z79.899 Other long term (current) drug therapy; Z80.3 Family history of malignant neoplasm of breast; Z81.1 Family history of alcohol abuse and dependence; Z81.8 Family history of other mental and behavioral disorders; Z92.21 Personal history of antineoplastic chemotherapy; Z95.5 Presence of coronary angioplasty implant and graft; Z87.01 Personal history of pneumonia (recurrent); Z79.2 Long term (current) use of antibiotics
CPT/HCPCS: 36415; 70486; 71046; 76700; 80053; 80202; 81001; 82550; 82553; 83605; 83735; 84484; 84550; 85025; 85027; 85049; 85610; 86850; 86900; 86901; 86920; 87040; 87070; 87205; 87449; 87502; 93005; 93306; 94760; 96361; 96365; 96366; 96367; 99291

== ENCOUNTER 2018-07-09 05:43 | Day surgery (SDC) | payer MEDICARE ==
[~2018-07-09 05:43] MED LIST changes: +HYDROmorphone 0.5 MG/0.5 ML SYRINGE IVP PRN; +LACTATED RINGERS 1,000 ML IV SCH; +MORPHINE SULFATE 2 MG/ML SYRINGE IV PRN
[2018-07-09 06:13] VITALS: RESP 16; TEMP 98.2
[2018-07-09] MEDS ORDERED: PROPOFOL 10 MG/ML 20 ML VIAL IV ONE (07:06)
--- NOTE | 2018-07-09 07:48 | P.PCN ---
Date of Procedure: 07/09/18 Preoperative Diagnosis: Acute myeloid leukemia, status post induction chemotherapy Postoperative Diagnosis: Same Procedure(s) Performed: Bone marrow aspiration and biopsy Anesthesia: MAC Surgeon: Jeffry Andrade Drafting Layout Worker #1: Stated None Estimated Blood Loss (ml): 2 Pathology: other Condition: stable Disposition: same day Indications for Procedure: Acute myeloid leukemia, status post induction chemotherapy. Bone marrow aspiration biopsy done to assess response Operative Findings: Adequate sample Description of Procedure: The procedure was explained in detail to the patient inpatient and in the office. He presented to the outpatient endoscopy suite, but IV access and informed consent obtained. He was then placed in left lateral decubitus position. The area over both posterior iliac crests was cleaned and prepped with chlorhexidine and sterile draping. IV sedation was then initiated. Local anesthesia was administered to the right posterior iliac crest with lidocaine. A Jamshidi needle was then inserted and bone marrow aspirate and biopsy obtained. Number of spicules were comparatively few. Therefore an additional past was made again with only a few spicules obtained. On withdrawal of the needle hemostasis was easily achieved. Due to the small number of spicules anesthesia, attention was turned to the left posterior iliac crest. Local anesthetic was administered to this area with lidocaine. A Jamshidi needle was then inserted and bone marrow aspirate and biopsy obtained. Again, on withdrawal of the needle hemostasis was easily achieved. blood loss was minimal and recovery inflammation was satisfactory. The patient appeared to have tolerated the procedure well without any obvious immediate competitions
[2018-07-09 08:04] VITALS: BP 125/75; PULSE 80
[2018-07-09 08:18] LABS: HCT 21.4 % (39.0-53.0); HGB 7.1 gm/dL (13.0-17.5); MCH 28.3 pg (25.0-35.0); MCHC 33.4 g/dL (31.0-37.0); MCV 84.8 fL (80.0-100.0); Mean Platelet Volume 8.9; RBC 2.52 m/uL (4.30-5.90); RDW 13.8 % (11.5-15.5); WBC 1.5 k/uL (3.8-10.6)
[2018-07-09 09:50] LABS: Neutrophils % (M) 2 %
[2018-07-09 09:51] LABS: Blast Cells # (M) 0.65 k/uL (0); Lymphocytes # (M) 0.63 k/uL (1.0-4.8); Neutrophils # (M) 0.03 k/uL (1.3-7.7); Nucleated Red Blood Cells 0 /100 WBC (0-0); Total Cells Counted 100
[2018-07-09 09:55] LABS: Platelet Count 15 k/uL (150-450)
[2018-07-09 09:56] LABS: Poikilocytosis (M) Present
== END 2018-07-09 08:36 | disposition home or self-care (01) ==
LOC: OR 05:43
PROVIDERS: ATTEND Internal Medicine Hematology & Oncology
DX: C92.00 Acute myeloblastic leukemia, not having achieved remission (principal); Z92.21 Personal history of antineoplastic chemotherapy; I10 Essential (primary) hypertension; E78.5 Hyperlipidemia, unspecified; I25.10 Atherosclerotic heart disease of native coronary artery without angina pectoris; Z87.891 Personal history of nicotine dependence; D69.3 Immune thrombocytopenic purpura; D70.9 Neutropenia, unspecified; R21 Rash and other nonspecific skin eruption; Z79.2 Long term (current) use of antibiotics; Z79.899 Other long term (current) drug therapy
CPT/HCPCS: 85025; 38222; J2704

== ENCOUNTER 2018-07-19 17:17 | Inpatient (IN) | payer MEDICARE ==
[2018-07-19] MEDS ORDERED: ONDANSETRON ODT 4 MG TAB PO PRN (20:38)
[2018-07-19] MEDS ORDERED: ACETAMINOPHEN TAB 500 MG TAB PO PRN (20:38)
[2018-07-19] MEDS: METOPROLOL SUCCINATE (ER) 25 MG TAB.ER.24H PO SCH (22:10)
[2018-07-19] MEDS: ACYCLOVIR 200 MG CAP PO SCH (22:10)
[2018-07-19] MEDS: MAG HYDROX/AL HYDROX/SIMETH 30 ML, LIDOCAINE VISCOUS 30 ML, diphenhydrAMINE ELIXIR 75 M... PO SCH ×4 (22:10)
[2018-07-20 04:11] VITALS: BMI 20.5
[2018-07-20] MEDS ORDERED: CLOPIDOGREL 75 MG TAB PO SCH (09:00)
[2018-07-20] MEDS ORDERED: NON-FORMULARY DRUG (Vitamin B Complex [Vitamin B Complex] 1 CAP) PO SCH (09:00)
[2018-07-20] MEDS: ACYCLOVIR 200 MG CAP PO SCH ×2 (10:18→20:39)
[2018-07-20] MEDS: METOPROLOL SUCCINATE (ER) 25 MG TAB.ER.24H PO SCH ×2 (10:18→20:39)
[2018-07-20] MEDS: ALLOPURINOL 300 MG TAB PO SCH (10:18)
[2018-07-20] MEDS: FERROUS SULFATE 325 MG TAB PO SCH (10:18)
[2018-07-20] MEDS: ATORVASTATIN 80 MG TAB PO SCH (10:18)
[2018-07-20] MEDS: ISOSORBIDE MONONITRATE ER 30 MG TAB.ER.24H PO SCH (10:19)
[2018-07-20] MEDS: ASCORBIC ACID 500 MG TAB PO SCH (10:19)
[2018-07-20] MEDS: MAG HYDROX/AL HYDROX/SIMETH 30 ML, LIDOCAINE VISCOUS 30 ML, diphenhydrAMINE ELIXIR 75 M... PO SCH ×12 (10:19→20:41)
[2018-07-20] MEDS: FOLIC ACID 1 MG TAB PO SCH (10:19)
[2018-07-20 12:02] LABS: Anisocytosis Slight; MCH 27.1 pg (25.0-35.0); MCHC 33.6 g/dL (31.0-37.0); MCV 80.8 fL (80.0-100.0); Mean Platelet Volume 8.9; Microcytosis Slight; RBC 2.43 m/uL (4.30-5.90); RDW 17.9 % (11.5-15.5); WBC 2.5 k/uL (3.8-10.6)
[2018-07-20 12:24] LABS: HGB 6.6 gm/dL (13.0-17.5)
[2018-07-20 12:25] LABS: HCT 19.6 % (39.0-53.0)
[2018-07-20 14:20] LABS: Blast Cells # (M) 2.38 k/uL (0); Eosinophils # (M) 0.03 k/uL (0-0.7); Neutrophils # (M) 0.03 k/uL (1.3-7.7); Neutrophils % (M) 1 %; Nucleated Red Blood Cells 0 /100 WBC (0-0); Total Cells Counted 200
[2018-07-20 14:22] LABS: Poikilocytosis (M) Present; Polychromasia Present
[2018-07-20 14:23] LABS: Platelet Count 20 k/uL (150-450)
[2018-07-20 15:03] LABS: INR 1.2 (<1.2); Partial Thromboplastin Time 31.8 sec (22.0-30.0); Prothrombin Time 12.1 sec (9.0-12.0)
--- NOTE | 2018-07-20 15:04 | P.HPIM ---
History of Present Illness H&P Date: 07/20/18 Chief Complaint: Severe anemia and symptomatic thrombocytopenia, AML Patient was sent to the hospital for observation last evening to receive a unit of blood and unit of single donor platelets for hemoglobin of 6.2, platelet count of 27,000 but symptomatic with oral bleeding. Patient received 1 unit of blood, Hgb increased to 6.6, status post platelet transfusion platelets are 20,000. Plan was to give patient another unit of blood and discharged home but, he was noted by nursing to have a black stool. Occult has been ordered, another unit of platelets has been requested. Coags been ordered as patient has had a very poor appetite and decreased oral intake over the last 2 weeks due to significant oral irritation. Patient did have the entire lining of his mouth sl ough off, this was bloody underneath with blood clots in the sink, oral mucosa only mildly irritated. When examined patient had no complaints on a 14 point review of systems other than his mouth and mild fatigue. Malignancy history : History of CLL/well-differentiated lymphoma, diagnosed December 2000. Treated with 4 cycles of fludarabine, subsequently developed hemolytic anemia and ITP, which responded well to steroid treatment, he did not require treatment for many years. Was seen in consult at [facility] 06/04, admitted for fever and pancytopenia. Workup, including bone marrow, was negative for malignancy. Had infiltrates on CT chest, improved with abx. He was supposed to f/u in 06/04 but did not do so. He noted a small nodule on the right mid back, this did not improve with time, in fact increased in size and developed discoloration. Dr. Burnette biopsy that on 09/20/14, path positive for Diffuse Large B cell Lymphoma. Late 09/04 pt also noted a mass developing in his right armpit, staging PET and bone marrow did not reveal any marrow involvement. He did appear to have at least stage III disease, with a retrocrural node involved, questionable lung parenchymal involvement. He was started on R-CHOP completed 6 cycles 02/04. He developed a new lump in his right mid back around 11/06, core biopsy on 12/17/16 revealed a diffuse large B-cell non-Hodgkin's lymphoma, staging PET revealed uptake in the tonsils, neck nodes and presternal soft tissue in addition to the skin. He started salvage R-ICE on 01/07/17, after 2 cycles he had an excellent response. He started cycle 3 on 02/19/17, unfortunately after day 1 he suffered a DE and chemo was stopped. Cardiac catheterization showed complete RCA occlusion with collaterals, and a tight stenosis in the origin of the circumflex that was technically difficult to stent. He was not felt to be a candidate for surgery at this point, based on extent of disease, plan was medical management. He resumed chemo on 03/17/17, with dose reduction. He completed 4 cycles 04/17/17. He was referred to [facility] BMT, recommendation was for cardiology intervention. He had PTCA was successful stenting of the LAD and left circumflex on 08/31/2017. He was referred back to BMT, was seen 10/07, decided not to proceed Review of Systems 14 point review of systems is negative except as stated in HPI Past Medical History Past Medical History: Cancer, Myocardial Infarction (DE), Pneumonia Additional Past Medical History / Comment(s): 2000 diagnosed with CLL treated with chemo successfully, 08/2014 R side back mass-diffuse large B cell lymphoma treated with chemo, 11/2016 recurrent R back mass-diffuse large B cell lymphoma with current chemo, pancytopenia, ITP, anemia, pneumonia with sepsis, 02/20/17 NSTEMI with heart cath-tx medically. Last Myocardial Infarction Date:: 02/20/17 History of Any Multi-Drug Resistant Organisms: None Reported Past Surgical History: Heart Catheterization, Heart Catheterization With Stent Additional Past Surgical History / Comment(s): 02/20/17 cardiac cath, 2000 BMA, R upper back mass-needle bxs, colonoscopy-normal, power port, 2019 BMA. Past Anesthesia/Blood Transfusion Reactions: No Reported Reaction Additional Past Anesthesia/Blood Transfusion Reaction / Comment(s): Pt has received blood in the past without reaction. 02/20/17 pt had chest pain/SOB (NSTEMI) 1 day post transfusion. Date of Last Stent Placement:: 2017 Past Psychological History: No Psychological Hx Reported Additional Psychological History / Comment(s): Patient's adult daughter lives with him. There are no animals in the home. Alcohol only rarely-many years ago he states he drank heavier. Denies significant injection drug use or other recreational drug use at this time. No experience. No recent travels. No international travel. 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 He does not have experience. He does not have extensive international travel. His never been to the [facility]. No animal exposures in the home at this time. Smoking Status: Former smoker Past Alcohol Use History: None Reported Additional Past Alcohol Use History / Comment(s): QUIT SMOKING ABOUT 1 MONTH AGO. Past Drug Use History: None Reported - Past Family History Father Additional Family Medical History / Comment(s): Father was an alcoholic. He committed suicide. Mother Family Medical History: Cancer Additional Family Medical History / Comment(s): Mother had Breast Cancer 25 yrs ago. She is 85yrs old. Medications and Allergies Home Medications Medication Instructions Recorded Confirmed Type Vitamin B Complex 1 cap PO DAILY 12/11/16 07/19/18 History Folic Acid 1 mg PO DAILY 02/18/17 07/19/18 History Isosorbide Mononitrate ER [Imdur] 30 mg PO DAILY #30 tab 04/16/17 07/19/18 Rx Ascorbic Acid [Vitamin C] 500 mg PO DAILY 06/02/18 07/19/18 History Atorvastatin [Lipitor] 80 mg PO DAILY 06/02/18 07/19/18 History Acyclovir [Zovirax] 400 mg PO BID #42 tab 06/13/18 07/19/18 Rx Allopurinol [Zyloprim] 300 mg PO DAILY #21 tablet 06/13/18 07/19/18 Rx Ferrous Sulfate [Feosol] 325 mg PO DAILY 06/23/18 07/19/18 History Metoprolol Succinate [Toprol XL] 25 mg PO BID 06/23/18 07/19/18 History Acetaminophen Tab [Tylenol Tab] 500 mg PO Q4H PRN 07/19/18 07/19/18 History Clopidogrel [Plavix] 75 mg PO DAILY 07/19/18 07/19/18 History Ondansetron [Zofran ODT] 4 mg PO Q6HR PRN 07/19/18 07/19/18 History traMADol HCl [Ultram] 50 mg PO Q6HR PRN 07/19/18 07/19/18 History Allergies Allergy/AdvReac Type Severity Reaction Status Date / Time No Known Allergies Allergy Verified 07/19/18 18:16 Physical Exam Vitals: Vital Signs Temp Pulse Pulse Resp BP BP Pulse Ox 07/20/18 14:47 98.3 F 103 H 17 121/51 97 07/20/18 14:37 98.5 F 82 16 122/60 07/20/18 14:28 98.5 F 85 16 127/62 96 07/20/18 14:05 98.5 F 105 H 16 127/62 98 07/20/18 11:52 98.5 F 110 H 16 104/62 99 07/20/18 08:00 18 07/20/18 05:26 98.4 F 88 17 96/60 100 07/20/18 05:10 98.2 F 95 20 106/61 98 07/20/18 03:11 98.9 F 93 20 108/57 07/20/18 02:38 98.6 F 97 20 102/53 07/20/18 02:28 98.9 F 111 H 18 104/55 96 07/20/18 01:56 99.9 F H 109 H 18 124/66 07/20/18 00:17 100.2 F H 121 H 20 127/55 07/20/18 00:00 110 H 18 07/19/18 23:53 100.1 F H 115 H 20 111/55 96 07/19/18 23:43 100.0 F H 123 H 20 103/58 07/19/18 21:00 97.9 F 105 H 16 104/58 99 Intake and Output 07/19/18 07/20/18 07/20/18 22:59 06:59 14:59 Intake Total 120 530 450 Balance 120 530 450 Intake: Oral 120 450 Blood Product 530 0 Platelet Irr Pheresis 3 220 Acda Unit [id number] Rc Irr As1 Unit 310 [id number] Rc Irr As1 Unit 0 [id number] Other: Voiding Method Toilet # Voids 1 1 2 # Bowel Movements 1 Weight 68.5 kg 68.5 kg - Constitutional General appearance: cooperative, no acute distress, thin - EENT Dried blood noted around the mouth, mostly in dentulous, few teeth are severely decayed, did observe in the sink the lining of the patient's mouth that he spit out, consisted of blood clots Eyes: anicteric sclerae, EOMI ENT: hearing grossly normal - Neck Neck: no lymphadenopathy - Respiratory Respiratory: bilateral: CTA - Cardiovascular Rhythm: regular Heart sounds: normal: S1, S2 Abnormal Heart Sounds: no systolic murmur, no diastolic murmur, no rub, no S3 Gallop, no S4 Gallop, no click, no other leg Peripheral Edema: bilateral: None - Gastrointestinal General gastrointestinal: no absent bowel sounds, no decreased bowel sounds, no distended, no hepatomegaly, no hyperactive bowel sounds, normal bowel sounds, no organomegaly, no rigid, no scaphoid, soft, no splenomegaly, no tenderness, no umbilical hernia, no ventral hernia - Integumentary Integumentary: pale - Neurologic Neurologic: CNII-XII intact - Musculoskeletal Musculoskeletal: strength equal bilaterally - Psychiatric Psychiatric: A&O x's 3, appropriate affect, intact judgment & insight Results CBC & Chem 7: 07/20/18 11:29 Labs: Abnormal Lab Results - Last 24 Hours (Table) 07/19/18 07/20/18 Range/Units 18:05 11:29 WBC 2.5 L (3.8-10.6) k/uL RBC 2.43 L (4.30-5.90) m/uL Hgb 6.6 L* (13.0-17.5) gm/dL Hct 19.6 L* (39.0-53.0) % RDW 17.9 H (11.5-15.5) % Plt Count 20 L (150-450) k/uL Blast Cells % 95 H* % Neutrophils # (Manual) 0.03 L* (1.3-7.7) k/uL Lymphocytes # (Manual) 0.10 L (1.0-4.8) k/uL Blast Cells # (Man) 2.38 H (0) k/uL Crossmatch See Detail Thrombosis Risk Factor Assmnt - DVT/VTE Prophylaxis DVT/VTE Prophylaxis: Contraindicated - See note (Thrombocytopenia) - Choose All That Apply Any of the Below Risk Factors Present?: No Other Risk Factors: Yes Each Risk Factor Represents 2 Points: Age 61-74 years, Malignancy Other congenital or acquired thrombophilia - If yes, enter type in comment: No Thrombosis Risk Factor Assessment Total Risk Factor Score: 4 Thrombosis Risk Factor Assessment Level: Moderate Risk Assessment and Plan (1) Bleeding Narrative/Plan: Patient does have a black stool, he has had bleeding from the mouth. His hemoglobin increased less than half of a gram status post 1 unit of blood. Hemoglobin currently 6.6, another unit of blood has been ordered. Patient receives irradiated blood products. Occult ordered, Coags ordered due to p atient's poor oral intake over the last 2-3 weeks. Current Visit: Yes Status: Acute Priority: High Code(s): R58 - HEMORRHAGE, NOT ELSEWHERE CLASSIFIED SNOMED Code(s): 949673543 (2) Acute myelogenous leukemia Narrative/Plan: Patient just recently started treatment for the same. Dr. Andrade is considering a treatment change. Supportive care at this time. Current Visit: Yes Status: Acute Priority: High Code(s): C92.00 - ACUTE MYELOBLASTIC LEUKEMIA, NOT HAVING ACHIEVED REMISSION SNOMED Code(s): 26934901 (3) Pancytopenia Narrative/Plan: Irradiated blood products 1 unit of PRBCs for hemoglobin of 6.6 1 unit of single donor platelets for a platelet count 20,000 with bleeding No intervention for WBCs at this time. Current Visit: Yes Status: Acute Priority: High Code(s): D61.818 - OTHER PANCYTOPENIA SNOMED Code(s): 385448930 Plan: Doctor attests: I performed a history and physical examination of this patient, developed impression and plan of care, discussed with dictator. I agree with dictators note, documented as a scribe.
[2018-07-20] MEDS: PANTOPRAZOLE 40 MG/10 ML VIAL IVP SCH ×2 (15:17→20:43)
[2018-07-20] MEDS: traMADol 50 MG TAB PO PRN ×2 (16:57→20:39)
[2018-07-21] MEDS: PANTOPRAZOLE 40 MG/10 ML VIAL IVP SCH (09:17)
[2018-07-21] MEDS: METOPROLOL SUCCINATE (ER) 25 MG TAB.ER.24H PO SCH (09:17)
[2018-07-21] MEDS: traMADol 50 MG TAB PO PRN (09:17)
[2018-07-21] MEDS: ATORVASTATIN 80 MG TAB PO SCH (09:22)
[2018-07-21] MEDS: ACYCLOVIR 200 MG CAP PO SCH (09:22)
[2018-07-21] MEDS: MAG HYDROX/AL HYDROX/SIMETH 30 ML, LIDOCAINE VISCOUS 30 ML, diphenhydrAMINE ELIXIR 75 M... PO SCH ×4 (09:22)
[2018-07-21] MEDS: FERROUS SULFATE 325 MG TAB PO SCH (09:22)
[2018-07-21] MEDS: ALLOPURINOL 300 MG TAB PO SCH (09:22)
[2018-07-21] MEDS: ASCORBIC ACID 500 MG TAB PO SCH (09:23)
[2018-07-21] MEDS: FOLIC ACID 1 MG TAB PO SCH (09:23)
[2018-07-21 10:08] LABS: ALT 88 U/L (21-72); AST 67 U/L (17-59); Albumin 2.8 g/dL (3.5-5.0); Alkaline Phosphatase 216 U/L (38-126); Anion Gap 10 mmol/L; Blood Urea Nitrogen 13 mg/dL (9-20); Calcium 8.2 mg/dL (8.4-10.2); Carbon Dioxide 21 mmol/L (22-30); Chloride 108 mmol/L (98-107); Glucose 101 mg/dL (74-99); Potassium 3.9 mmol/L (3.5-5.1); Sodium 139 mmol/L (137-145); Total Protein 5.4 g/dL (6.3-8.2)
[2018-07-21 10:13] LABS: Anisocytosis Slight; HCT 22.5 % (39.0-53.0); HGB 7.7 gm/dL (13.0-17.5); MCH 27.3 pg (25.0-35.0); MCHC 34.3 g/dL (31.0-37.0); MCV 79.8 fL (80.0-100.0); Mean Platelet Volume 7.7; Microcytosis Slight; Poikilocytosis Slight; RBC 2.82 m/uL (4.30-5.90); RDW 18.3 % (11.5-15.5); WBC 2.6 k/uL (3.8-10.6)
[2018-07-21 10:15] LABS: Platelet Count 30 k/uL (150-450)
[2018-07-21 10:49] LABS: Neutrophils % (M) 3 %
[2018-07-21 10:50] LABS: Band Neutrophils % 1 %; Blast Cells # (M) 2.31 k/uL (0); Lymphocytes # (M) 0.18 k/uL (1.0-4.8); Nucleated Red Blood Cells 0 /100 WBC (0-0); Total Cells Counted 100
[2018-07-21 12:12] VITALS: BP 104/65; PULSE 101; RESP 16; TEMP 99.1
[2018-07-21] MEDS: ISOSORBIDE MONONITRATE ER 30 MG TAB.ER.24H PO SCH (13:28)
--- NOTE | 2018-07-21 14:50 | P.DS ---
Providers Date of admission: 07/20/18 14:39 Expected date of discharge: 07/21/18 Attending physician: Jeffry Andrade Primary care physician: Jeffry Andrade - Discharge Diagnosis(es) (1) Bleeding Current Visit: Yes Status: Acute Priority: High (2) Acute myelogenous leukemia Current Visit: Yes Status: Acute Priority: High (3) Pancytopenia Current Visit: Yes Status: Acute Priority: High Hospital Course: Pt admitted to observation late Thursday evening for PRBCs for Hgb 6.2 and single donor platelets for symptomatic thrombocytopenia, plt count 27,000. He received transfusions, recheck showed only minimal response in Hgb and plt went down, pt had ongoing oral bleeding and black stool so he was kept overnight for observation and received another unit of PRNCs and platelets. Today his Hgb is 7.7, plt 30,000, he pulled his tooth out with moderate bleeding that was finally stopped. No other c/o, BP has been running low, moderate weakness, pt is ablw to tolerate oral intake better. Procedures: none Patient Condition at Discharge: Fair Plan - Discharge Summary Discharge Rx Participant: No New Discharge Prescriptions: New Isosorbide Mononitrate ER [Imdur] 15 mg PO DAILY #1 tab Discontinued Isosorbide Mononitrate ER [Imdur] 30 mg PO DAILY #30 tab Clopidogrel [Plavix] 75 mg PO DAILY No Action Vitamin B Complex 1 cap PO DAILY Folic Acid 1 mg PO DAILY Ascorbic Acid [Vitamin C] 500 mg PO DAILY Atorvastatin [Lipitor] 80 mg PO DAILY Acyclovir [Zovirax] 400 mg PO BID #42 tab Allopurinol [Zyloprim] 300 mg PO DAILY #21 tablet Metoprolol Succinate [Toprol XL] 25 mg PO BID Ferrous Sulfate [Feosol] 325 mg PO DAILY Acetaminophen Tab [Tylenol Tab] 500 mg PO Q4H PRN PRN Reason: Mild Pain Or Fever > 100.5 traMADol HCl [Ultram] 50 mg PO Q6HR PRN PRN Reason: Moderate Pain Ondansetron [Zofran ODT] 4 mg PO Q6HR PRN PRN Reason: Nausea Discharge Medication List Vitamin B Complex 1 cap PO DAILY 12/11/16 [History] Folic Acid 1 mg PO DAILY 02/18/17 [History] Ascorbic Acid [Vitamin C] 500 mg PO DAILY 06/02/18 [History] Atorvastatin [Lipitor] 80 mg PO DAILY 06/02/18 [History] Acyclovir [Zovirax] 400 mg PO BID #42 tab 06/13/18 [Rx] Allopurinol [Zyloprim] 300 mg PO DAILY #21 tablet 06/13/18 [Rx] Ferrous Sulfate [Feosol] 325 mg PO DAILY 06/23/18 [History] Metoprolol Succinate [Toprol XL] 25 mg PO BID 06/23/18 [History] Acetaminophen Tab [Tylenol Tab] 500 mg PO Q4H PRN 07/19/18 [History] Ondansetron [Zofran ODT] 4 mg PO Q6HR PRN 07/19/18 [History] traMADol HCl [Ultram] 50 mg PO Q6HR PRN 07/19/18 [History] Isosorbide Mononitrate ER [Imdur] 15 mg PO DAILY #1 tab 07/21/18 [Rx] Patient Instructions/Handouts: Thrombocytopenia (GEN) Activity/Diet/Wound Care/Special Instructions: Follow up CBC in 2 days at Oncologist office, pt has appt Discharge Disposition: HOME SELF-CARE Pending Studies Pending Results: none
== END 2018-07-21 15:49 | disposition home or self-care (01) | DRG 809 ==
LOC: 3NMEDONC 17:43 → OBSVTOIN 07-20 14:39
PROVIDERS: ADMIT Internal Medicine Hematology & Oncology; ATTEND Internal Medicine Hematology & Oncology
PROC: 30240R1 Transfusion of Nonautologous Platelets into Central Vein, Open Approach (ICD-10-PCS; principal; 2018-07-20)
PROC: 30243N1 Transfusion of Nonautologous Red Blood Cells into Central Vein, Percutaneous Approach (ICD-10-PCS; 2018-07-20)
DX: D61.818 Other pancytopenia (principal); C92.00 Acute myeloblastic leukemia, not having achieved remission; I25.82 Chronic total occlusion of coronary artery; I25.10 Atherosclerotic heart disease of native coronary artery without angina pectoris; I25.2 Old myocardial infarction; K13.79 Other lesions of oral mucosa; Z85.72 Personal history of non-Hodgkin lymphomas; Z79.02 Long term (current) use of antithrombotics/antiplatelets; Z79.899 Other long term (current) drug therapy; Z87.891 Personal history of nicotine dependence; Z95.5 Presence of coronary angioplasty implant and graft; Z87.01 Personal history of pneumonia (recurrent); Z92.21 Personal history of antineoplastic chemotherapy; Z80.3 Family history of malignant neoplasm of breast; Z81.1 Family history of alcohol abuse and dependence
CPT/HCPCS: 80053; 85025; 85610; 85730; 86850; 86900; 86901; 86920

== ENCOUNTER 2018-07-31 19:50 | Inpatient (IN) | payer MEDICARE ==
[2018-07-31] MEDS ORDERED: SODIUM CHLORIDE 0.9% 1,000 ML IV STA (21:17)
[2018-07-31 21:28] LABS: Anisocytosis Slight; MCH 29.1 pg (25.0-35.0); MCHC 35.8 g/dL (31.0-37.0); MCV 81.1 fL (80.0-100.0); Mean Platelet Volume 6.3; Microcytosis Slight; Poikilocytosis Slight; RDW 17.5 % (11.5-15.5); WBC 10.1 k/uL (3.8-10.6)
[2018-07-31 21:36] LABS: Albumin 2.7 g/dL (3.5-5.0); Calcium 8.2 mg/dL (8.4-10.2); Potassium 2.9 mmol/L (3.5-5.1); Total Bilirubin 0.9 mg/dL (0.2-1.3); Total Protein 5.5 g/dL (6.3-8.2)
[2018-07-31 21:37] LABS: HGB 6.1 gm/dL (13.0-17.5)
--- NOTE | 2018-07-31 21:42 | XR ---
EXAMINATION TYPE: XR chest 2V DATE OF EXAM: 07/31/2018 COMPARISON: 06/29/2018 HISTORY: 62-year-old male with weakness TECHNIQUE: AP and lateral views FINDINGS: The heart is normal size. Aorta and pulmonary vasculature within normal limits. Focal patchy density in the right upper lobe. Right anterior chest wall injection port with catheter tip at the lower SVC. No other consolidation or pleural effusion seen. IMPRESSION: Some focal patchy right upper lobe atelectasis or infiltrates.
[2018-07-31 21:55] LABS: INR 1.1 (<1.2); Prothrombin Time 11.9 sec (9.0-12.0)
[2018-07-31 21:56] LABS: Partial Thromboplastin Time 20.7 sec (22.0-30.0)
[2018-07-31] MEDS ORDERED: POTASSIUM CHLORIDE 2 MEQ/ML 20 ML VIAL IV STA (21:56)
[2018-07-31] MEDS ORDERED: POTASSIUM CHLORIDE ER 20 MEQ TAB.ER PO STA (21:57)
[2018-07-31 22:04] LABS: Neutrophils % (M) 2 %
[2018-07-31 22:06] LABS: Blast Cells # (M) 7.47 k/uL (0); Lymphocytes # (M) 1.82 k/uL (1.0-4.8); Monocytes # (M) 0.61 k/uL (0-1.0); Nucleated Red Blood Cells 0 /100 WBC (0-0); Total Cells Counted 200
[2018-07-31 22:09] LABS: Platelet Count 8 k/uL (150-450)
[2018-07-31] MEDS: POTASSIUM CHLORIDE 10 MEQ in WATER FOR INJECTION 1 100ML.BAG IVPB SCH ×2 (22:39→23:10)
--- NOTE | 2018-08-01 00:39 | ED ---
Weakness HPI - General Chief complaint: Weakness Stated complaint: Weakness Time Seen by Provider: 07/31/18 20:52 Source: patient, family Mode of arrival: ambulatory Limitations: no limitations - History of Present Illness Initial comments: The patient is a 62-year-old male who presents to the emergency room with complaint of shortness of breath. The patient has a history of acute leukemia for which she sees Dr. Andrade. He last received IV chemotherapy in May. The treatment failed and the patient is currently awaiting approval by his insurance company to receive oral chemo. He was seen in the office and found to be anemic. He was sent to the transfusion center yesterday to receive a unit of blood. Family states that after he receives transfusion, he usually feels better. They state that today he has been suffering from generalized weakness. He also complains of exertional shortness of breath. They're concerned that he may be dehydrated. The patient has had a poor appetite. He normally drinks protein shakes for which he states he did drink today. He denies any nausea or vomiting. Denies any pain to include chest pain or abdominal pain. Denies any changes in his urination. Does admit to black stools which she feels is susan montgomery to his iron supplementation as this has been going on for a while. He denies having a colonoscopy. No hematochezia. No report of any fevers or chills. No cough. There are no other alleviating, precipitating or modifying factors - Related Data Home Medications Medication Instructions Recorded Confirmed Vitamin B Complex 1 cap PO DAILY 12/11/16 07/31/18 Folic Acid 1 mg PO DAILY 02/18/17 07/31/18 Ascorbic Acid [Vitamin C] 500 mg PO DAILY 06/02/18 07/31/18 Atorvastatin [Lipitor] 80 mg PO DAILY 06/02/18 07/31/18 Ferrous Sulfate [Feosol] 325 mg PO DAILY 06/23/18 07/31/18 Metoprolol Succinate [Toprol XL] 25 mg PO BID 06/23/18 07/31/18 Acetaminophen Tab [Tylenol Tab] 500 mg PO Q4H PRN 07/19/18 07/31/18 Ondansetron [Zofran ODT] 4 mg PO Q6HR PRN 07/19/18 07/31/18 traMADol HCl [Ultram] 50 mg PO Q6HR PRN 07/19/18 07/31/18 Isosorbide Mononitrate ER [Imdur] 15 mg PO HS 07/31/18 07/31/18 Previous Rx's Medication Instructions Recorded Acyclovir [Zovirax] 400 mg PO BID #42 tab 06/13/18 Allopurinol [Zyloprim] 300 mg PO DAILY #21 tablet 06/13/18 Allergies Allergy/AdvReac Type Severity Reaction Status Date / Time No Known Allergies Allergy Verified 07/31/18 20:30 Review of Systems ROS Statement: Those systems with pertinent positive or pertinent negative responses have been documented in the HPI. ROS Other: All systems not noted in ROS Statement are negative. Past Medical History Past Medical History: Cancer, Myocardial Infarction (MS), Pneumonia Additional Past Medical History / Comment(s): 2000 diagnosed with CLL treated with chemo successfully, 08/2014 R side back mass-diffuse large B cell lymphoma treated with chemo, 11/2016 recurrent R back mass-diffuse large B cell lymphoma with current chemo, pancytopenia, ITP, anemia, pneumonia with sepsis, 02/20/17 NSTEMI with heart cath-tx medically. Last Myocardial Infarction Date:: 02/20/17 History of Any Multi-Drug Resistant Organisms: None Reported Past Surgical History: Heart Catheterization, Heart Catheterization With Stent Additional Past Surgical History / Comment(s): 02/20/17 cardiac cath, 2000 [facility], R upper back mass-needle bxs, colonoscopy-normal, power port, 2019 [facility]. Past Anesthesia/Blood Transfusion Reactions: No Reported Reaction Additional Past Anesthesia/Blood Transfusion Reaction / Comment(s): Pt has received blood in the past without reaction. 02/20/17 pt had chest pain/SOB (NSTEMI) 1 day post transfusion. Date of Last Stent Placement:: 2017 Past Psychological History: No Psychological Hx Reported Smoking Status: Light tobacco smoker Past Alcohol Use History: None Reported Past Drug Use History: None Reported - Past Family History Father Additional Family Medical History / Comment(s): Father was an alcoholic. He committed suicide. Mother Family Medical History: Cancer Additional Family Medical History / Comment(s): Mother had Breast Cancer 25 yrs ago. She is 85yrs old. General Exam Limitations: no limitations General appearance: alert, in no apparent distress, cachectic Head exam: Present: atraumatic, normocephalic, normal inspection Eye exam: Present: normal appearance, PERRL, EOMI. Absent: scleral icterus, conjunctival injection, periorbital swelling Pupils: Present: normal accommodation ENT exam: Present: mucous membranes dry, other (The patient does have chronic ulcerations noted on the oral mucosa. This includes the floor of the mouth. The patient has very poor dentition. The does appear to be some clotted blood around the patient's retained teeth) Neck exam: Present: normal inspection. Absent: tenderness, meningismus, lymphadenopathy Respiratory exam: Present: normal lung sounds bilaterally. Absent: respiratory distress, wheezes, rales, rhonchi, stridor Cardiovascular Exam: Present: normal rhythm, tachycardia, normal heart sounds. Absent: systolic murmur, diastolic murmur, rubs, gallop, clicks GI/Abdominal exam: Present: soft, normal bowel sounds. Absent: distended, tenderness, guarding, rebound, rigid Rectal exam: Present: normal rectal tone, heme (+) stool. Absent: hemorrhoids Extremities exam: Present: normal inspection, full ROM, normal capillary refill. Absent: tenderness, pedal edema, joint swelling, calf tenderness Back exam: Present: normal inspection Neurological exam: Present: alert, oriented X3, CN II-XII intact Psychiatric exam: Present: normal affect, normal mood Skin exam: Present: warm, dry, intact, normal color, abrasion (Abrasion noted over the left elbow). Absent: rash Course Vital Signs 07/31/18 08/01/18 08/01/18 19:53 00:37 02:20 Temperature 99.2 F 101.5 F H Pulse Rate 110 H 110 H 112 H Respiratory 20 19 19 Rate Blood Pressure 85/52 105/84 102/61 O2 Sat by Pulse 98 97 98 Oximetry EKG Findings - EKG Comments: EKG Findings:: The patient has a 12-lead EKG performed which demonstrates a sinus rhythm with premature ventricular complexes. Rate of 99. SC interval 170. QRS 120. QTC of 523. No acute ST segment elevations or depressions concerning for ischemic changes. Procedures - Stool Hemoccult Hemoccult result: positive Medical Decision Making - Medical Decision Making The patient was placed into room 6. He is hooked up to continuous pulse ox and cardiac monitoring. The patient is hypotensive and tachycardic upon arrival. IV access established the patient is given a liter bolus of normal saline. Laboratory studies were conducted. The patient was found to have a hemoglobin of 6.1. Platelets of 8. I did type and screen the patient. I ordered a unit of packed red blood cells. I also ordered a pack of platelets to be transfused. The patient's potassium was markedly low at 2.9. He was replaced with 20 meq IV and 40 mEq by mouth. I discussed the results with the patient. He did agree to blood transfusion. Because of the patient's dark stools I did recommend a rectal exam for which the patient did agree. He did come back as fecal occult blood positive. Because of this I did order 40 milligrams of Protonix. I recommended the patient be admitted to the hospital for which he did agree. The patient was admitted to Dr. Parker. I called and discussed the case with him. I will place Dr. Andrade on consult. Prior to transfusion of blood, the patient did spike a temp. He was treated with Tylenol. Blood cultures were obtained and the patient was started on Unasyn. His chest x-ray did reveal a right upper lobe opacity. He was reevaluated upon multiple occasions and his blood pressure and heart rate improved. The patient remained in stable condition was awaiting transport to the floor. - Lab Data Result diagrams: 07/31/18 20:30 07/31/18 20:30 Lab Results 07/31/18 07/31/18 07/31/18 Range/Units 20:30 20:30 20:30 WBC 10.1 (3.8-10.6) k/uL RBC 2.10 L (4.30-5.90) m/uL Hgb 6.1 L* D (13.0-17.5) gm/dL Hct 17.0 L* (39.0-53.0) % MCV 81.1 (80.0-100.0) fL MCH 29.1 (25.0-35.0) pg MCHC 35.8 (31.0-37.0) g/dL RDW 17.5 H (11.5-15.5) % Plt Count 8 L* D (150-450) k/uL Neutrophils % (Manual) 2 % Lymphocytes % (Manual) 18 % Monocytes % (Manual) 6 % Blast Cells % 74 H* % Neutrophils # [address] Neutrophils # (Manual) 0.20 L* (1.3-7.7) k/uL Lymphocytes # (Manual) 1.82 (1.0-4.8) k/uL Monocytes # (Manual) 0.61 (0-1.0) k/uL Blast Cells # (Man) 7.47 H (0) k/uL Nucleated RBCs 0 (0-0) /100 WBC Manual Slide Review Performed Poikilocytosis Slight Anisocytosis Slight Microcytosis Slight PT (9.0-12.0) sec INR (<1.2) APTT (22.0-30.0) sec Sodium 134 L (137-145) mmol/L Potassium 2.9 L (3.5-5.1) mmol/L Chloride 104 (98-107) mmol/L Carbon Dioxide 18 L (22-30) mmol/L Anion Gap 12 mmol/L BUN 33 H (9-20) mg/dL Creatinine 1.07 (0.66-1.25) mg/dL Est GFR (CKD-EPI)AfAm 85 (>60 ml/min/1.73 sqM) Est GFR (CKD-EPI)NonAf 74 (>60 ml/min/1.73 sqM) Glucose 224 H (74-99) mg/dL Lactic Ac Sepsis Rflx Plasma Lactic Acid Jaylen 3.5 H* (0.7-2.0) mmol/L Calcium 8.2 L (8.4-10.2) mg/dL Magnesium 2.0 (1.6-2.3) mg/dL Total Bilirubin 0.9 (0.2-1.3) mg/dL AST 203 H (17-59) U/L ALT 221 H (21-72) U/L Alkaline Phosphatase 328 H (38-126) U/L Total Protein 5.5 L (6.3-8.2) g/dL Albumin 2.7 L (3.5-5.0) g/dL Urine Color Urine Appearance (Clear) Urine pH (5.0-8.0) Ur Specific Morse (1.001-1.035) Urine Protein (Negative) Urine Glucose (UA) (Negative) Urine Ketones (Negative) Urine Blood (Negative) Urine Nitrite (Negative) Urine Bilirubin (Negative) Urine Urobilinogen (<2.0) mg/dL Ur Leukocyte Esterase (Negative) Urine RBC (0-5) /hpf Urine WBC (0-5) /hpf Urine Mucus (None) /hpf Stool Occult Blood (Negative) Blood Type Blood Type Recheck Antibody Screen Crossmatch Transfuse Platelets Spec Expiration Date 07/31/18 07/31/18 07/31/18 Range/Units 20:30 21:43 22:11 WBC (3.8-10.6) k/uL RBC (4.30-5.90) m/uL Hgb (13.0-17.5) gm/dL Hct (39.0-53.0) % MCV (80.0-100.0) fL MCH (25.0-35.0) pg MCHC (31.0-37.0) g/dL RDW (11.5-15.5) % Plt Count (150-450) k/uL Neutrophils % (Manual) % Lymphocytes % (Manual) % Monocytes % (Manual) % Blast Cells % % Neutrophils # Neutrophils # (Manual) (1.3-7.7) k/uL Lymphocytes # (Manual) (1.0-4.8) k/uL Monocytes # (Manual) (0-1.0) k/uL Blast Cells # (Man) (0) k/uL Nucleated RBCs (0-0) /100 WBC Manual Slide Review Poikilocytosis Anisocytosis Microcytosis PT 11.9 (9.0-12.0) sec INR 1.1 (<1.2) APTT 20.7 L (22.0-30.0) sec Sodium (137-145) mmol/L Potassium (3.5-5.1) mmol/L Chloride (98-107) mmol/L Carbon Dioxide (22-30) mmol/L Anion Gap mmol/L BUN (9-20) mg/dL Creatinine (0.66-1.25) mg/dL Est GFR (CKD-EPI)AfAm (>60 ml/min/1.73 sqM) Est GFR (CKD-EPI)NonAf (>60 ml/min/1.73 sqM) Glucose (74-99) mg/dL Lactic Ac Sepsis Rflx Y Plasma Lactic Acid Jaylen (0.7-2.0) mmol/L Calcium (8.4-10.2) mg/dL Magnesium (1.6-2.3) mg/dL Total Bilirubin (0.2-1.3) mg/dL AST (17-59) U/L ALT (21-72) U/L Alkaline Phosphatase (38-126) U/L Total Protein (6.3-8.2) g/dL Albumin (3.5-5.0) g/dL Urine Color Urine Appearance (Clear) Urine pH (5.0-8.0) Ur Specific Morse (1.001-1.035) Urine Protein (Negative) Urine Glucose (UA) (Negative) Urine Ketones (Negative) Urine Blood (Negative) Urine Nitrite (Negative) Urine Bilirubin (Negative) Urine Urobilinogen (<2.0) mg/dL Ur Leukocyte Esterase (Negative) Urine RBC (0-5) /hpf Urine WBC (0-5) /hpf Urine Mucus (None) /hpf Stool Occult Blood (Negative) Blood Type A Negative Blood Type Recheck No Antibody Screen NEGATIVE Crossmatch See Detail Transfuse Platelets 08/01/2018 Spec Expiration Date 08/03/2018231008/01/18 08/01/18 Range/Units 00:00 00:10 WBC (3.8-10.6) k/uL RBC (4.30-5.90) m/uL Hgb (13.0-17.5) gm/dL Hct (39.0-53.0) % MCV (80.0-100.0) fL MCH (25.0-35.0) pg MCHC (31.0-37.0) g/dL RDW (11.5-15.5) % Plt Count (150-450) k/uL Neutrophils % (Manual) % Lymphocytes % (Manual) % Monocytes % (Manual) % Blast Cells % % Neutrophils # Neutrophils # (Manual) (1.3-7.7) k/uL Lymphocytes # (Manual) (1.0-4.8) k/uL Monocytes # (Manual) (0-1.0) k/uL Blast Cells # (Man) (0) k/uL Nucleated RBCs (0-0) /100 WBC Manual Slide Review Poikilocytosis Anisocytosis Microcytosis PT (9.0-12.0) sec INR (<1.2) APTT (22.0-30.0) sec Sodium (137-145) mmol/L Potassium (3.5-5.1) mmol/L Chloride (98-107) mmol/L Carbon Dioxide (22-30) mmol/L Anion Gap mmol/L BUN (9-20) mg/dL Creatinine (0.66-1.25) mg/dL Est GFR (CKD-EPI)AfAm (>60 ml/min/1.73 sqM) Est GFR (CKD-EPI)NonAf (>60 ml/min/1.73 sqM) Glucose (74-99) mg/dL Lactic Ac Sepsis Rflx Plasma Lactic Acid Jaylen (0.7-2.0) mmol/L Calcium (8.4-10.2) mg/dL Magnesium (1.6-2.3) mg/dL Total Bilirubin (0.2-1.3) mg/dL AST (17-59) U/L ALT (21-72) U/L Alkaline Phosphatase (38-126) U/L Total Protein (6.3-8.2) g/dL Albumin (3.5-5.0) g/dL Urine Color Yellow Urine Appearance Clear (Clear) Urine pH 6.0 (5.0-8.0) Ur Specific Morse 1.021 (1.001-1.035) Urine Protein 1+ H (Negative) Urine Glucose (UA) Negative (Negative) Urine Ketones Negative (Negative) Urine Blood Moderate H (Negative) Urine Nitrite Negative (Negative) Urine Bilirubin Negative (Negative) Urine Urobilinogen 2.0 (<2.0) mg/dL Ur Leukocyte Esterase Negative (Negative) Urine RBC 1 (0-5) /hpf Urine WBC 2 (0-5) /hpf Urine Mucus Rare H (None) /hpf Stool Occult Blood Positive (Negative) Blood Type Blood Type Recheck Antibody Screen Crossmatch Transfuse Platelets Spec Expiration Date Disposition Clinical Impression: Pancytopenia, Acute myelogenous leukemia, Hypokalemia Disposition: ADMITTED IP TO THIS HOSP Condition: Stable Is patient prescribed a controlled substance at d/c from ED?: No Decision to Admit Reason: Admit from EC Decision Date: 08/01/18 Decision Time: 00:39
[2018-08-01] MEDS ORDERED: NALOXONE 0.4 MG/ML 1 ML VIAL IV PRN (00:40)
[2018-08-01] MEDS ORDERED: ONDANSETRON ODT 4 MG TAB PO PRN (00:44)
[2018-08-01 00:49] LABS: Appearance,Urine Clear (Clear); Bilirubin,Urine Negative (Negative); Blood,Urine Moderate (Negative); Color,Urine Yellow; Glucose,Urine (UA) Negative (Negative); Ketones,Urine Negative (Negative); Leukocyte Esterase,Urine Negative (Negative); Mucus,Urine Rare /hpf; Nitrite,Urine Negative (Negative); Protein,Urine 1+ (Negative); RBC,Urine 1 /hpf (0-5); Specific Gravity,Urine 1.021 (1.001-1.035); WBC,Urine 2 /hpf (0-5)
[2018-08-01] MEDS ORDERED: Magnesium Replacement Protocol 1 EACH MISC MISCELLANE PRN (01:36)
[2018-08-01] MEDS ORDERED: Potassium Replacement Protocol 1 EACH MISC MISCELLANE PRN (01:36)
[2018-08-01] MEDS ORDERED: TEMAZEPAM 15 MG CAP PO PRN (01:36)
[2018-08-01] MEDS ORDERED: HYDROmorphone 0.5 MG/0.5 ML SYRINGE IVP PRN (01:36)
[2018-08-01] MEDS ORDERED: ALPRAZolam 0.25 MG TAB PO PRN (01:36)
[2018-08-01] MEDS: PANTOPRAZOLE 40 MG/10 ML VIAL IVP SCH ×3 (02:00→21:05)
[2018-08-01] MEDS ORDERED: ACETAMINOPHEN TAB 500 MG TAB PO STA (02:40)
[2018-08-01] MEDS: AMPICILLIN-SULBACTAM 3 GM in SODIUM CHLORIDE 0.9% 100 ML IVPB SCH ×4 (02:50→20:46)
--- NOTE | 2018-08-01 08:23 | HP ---
HISTORY AND PHYSICAL DATE OF SERVICE: 07/31/2018. CHIEF COMPLAINTS: Weakness and shortness of breath. HISTORY OF PRESENT ILLNESS: This 62-year-old gentleman with a past medical history of multiple medical problems including history of myocardial infarction, history pneumonia, history of chronic lymphoid leukemia, and history of large cell B lymphoma, ITP and CAD stent being followed by Dr. Andrade in the outpatient setting, apparently was waiting for chemo insurance approval. The patient had several blasts according to the family and the patient had transfusion about a week before in Dr. Andrade's office. Patient complains of weakness and tiredness, weakness and shortness of breath. The patient came to [facility] ER and admitted for further evaluation and treatment. Hemoglobin 6.1, platelets 8. The patient also had some bleeding from the gums and also lactic acid was found to be 3.5, and the patient admitted for further evaluation and treatment. There is no history of fever, rigors. No history of headache, loss of consciousness, seizures. A chest x-ray done at the time of admission showed some focal patchy right upper lobe atelectasis and infiltrates. There is no history of any headache, loss of consciousness, seizures. PAST MEDICAL HISTORY: History of myocardial infarction, history of chronic lymphoid leukemia, history of acute leukemia, history of large B-cell lymphoma, history of ITP, history of CAD stent, history of nicotine dependence. MEDICATIONS: Prior to admission include home medications are as follows: 1. Zofran 4 mg q.6h p.r.n. 2. Ultram 50 mg q.6h. #10 weakness. 3. Toprol-XL 25 mg p.o. b.i.d. 4. Imdur 50 mg q.h.s. 5. Folic acid 1 mg daily. 6. Iron sulfate 320 mg daily. 7. Lipitor 80 mg daily. 8. Vitamin C 500 mg. 9. Zyloprim 300 mg. 10.Zovirax 400 mg b.i.d. 11.Tylenol 500 mg q.4 p.r.n. ALLERGIES: None. FAMILY HISTORY: History of breast cancer in the family. SOCIAL HISTORY: History of smoking. REVIEW OF SYSTEMS: ENT: Diminished hearing and vision, otherwise significant oral hygiene issues and bleeding also present. CARDIOVASCULAR: No angina. RESPIRATORY: As mentioned earlier. GI: No nausea. : No dysuria. NERVOUS SYSTEM: No numbness. Generalized weakness. ALLERGY/IMMUNOLOGY: No asthma or hay fever. MUSCULOSKELETAL: As mentioned. HEMATOLOGY: As mentioned. CONSTITUTIONAL As mentioned earlier. DERMATOLOGY: Negative. RHEUMATOLOGY: Negative. PSYCHIATRY: As mentioned earlier. PHYSICAL EXAM: Patient is alert, oriented x3. Pulse is 110, blood pressure 85/52, respiration 20, temperature 98.2, pulse ox 98% on room air. HEENT: Conjunctivae pale. Oral mucosa is erythema, tenderness and as well as poor oral hygiene. Neck is no jugular venous distention. No carotid bruit. No lymph node enlargement. CARDIOVASCULAR: S1, S2 muffled. No S3. No S4. Ejection systolic murmur. RESPIRATORY: Breath sounds diminished in the bases. A few scattered rhonchi. No crackles. ABDOMEN: Soft, nontender. LEGS: No edema. NERVOUS SYSTEM: Higher function as mentioned. Moves all four limbs. No focal motor deficits. LYMPHATICS: No lymphadenopathy in the neck, axillae, groin. SKIN: No ulcer, rash. JOINTS: No active deforming arthropathy. LAB STUDIES: WBC 10.1, hemoglobin 6.1, platelets 8. The blasts are 74%. Lactic acid 3.5, AST 203, ALT is 221, sodium 130, potassium 2.9. ASSESSMENT: 1. Severe symptomatic anemia as well as bicytopenia. 2. Severe thrombocytopenia. 3. Possible acute myelogenous leukemia. 4. History of pancytopenia. 5. History of chronic lymphoid leukemia. 6. History of large-cell B-cell lymphoma. 7. History of pneumonia. 8. History of coronary artery disease, stent. 9. History of nicotine dependence. 10.Hyponatremia. 11.Hypokalemia. 12.Increased random blood sugar, rule out diabetes mellitus type 2. 13.Increased plasma lactic acid. 14.Increased AST and ALT, possibly hepatitis. RECOMMENDATIONS AND DISCUSSION: This 62-year-old gentleman who presented with multiple complex medical issues, will monitor the patient closely. Continue the current management and symptomatic treatment. Otherwise at this time, transfusions, platelet and as well as PRBCs. Consult Dr. Andrade. I would also recommend empiric antibiotics. Obtain cultures. Resume the home medications. Guarded prognosis because of multiple complex medical issues. residential support worker to follow with the patient's preauthorization issues and further recommendations to follow. MMODL / IJN: [id number] /
[2018-08-01] MEDS ORDERED: NON-FORMULARY DRUG (Vitamin B Complex [Vitamin B Complex] 1 CAP) PO SCH (09:00)
[2018-08-01] MEDS: FERROUS SULFATE 325 MG TAB PO SCH (09:24)
[2018-08-01] MEDS: FOLIC ACID 1 MG TAB PO SCH (09:24)
[2018-08-01] MEDS: METOPROLOL SUCCINATE (ER) 25 MG TAB.ER.24H PO SCH ×2 (09:24→20:46)
[2018-08-01] MEDS: ACYCLOVIR 200 MG CAP PO SCH ×2 (09:24→20:46)
[2018-08-01] MEDS: ACETAMINOPHEN TAB 500 MG TAB PO PRN (09:38)
[2018-08-01 11:10] LABS: Anisocytosis Slight; HCT 21.9 % (39.0-53.0); HGB 7.2 gm/dL (13.0-17.5); Hypochromasia Moderate; MCH 28.1 pg (25.0-35.0); MCV 85.1 fL (80.0-100.0); Poikilocytosis Slight; RBC 2.57 m/uL (4.30-5.90); RDW 17.4 % (11.5-15.5); WBC 12.6 k/uL (3.8-10.6)
[2018-08-01 11:12] LABS: Albumin 2.5 g/dL (3.5-5.0); Anion Gap 13 mmol/L; Blood Urea Nitrogen 21 mg/dL (9-20); Calcium 7.8 mg/dL (8.4-10.2); Carbon Dioxide 15 mmol/L (22-30); Chloride 110 mmol/L (98-107); Glucose 98 mg/dL (74-99); Sodium 138 mmol/L (137-145); Total Bilirubin 1.1 mg/dL (0.2-1.3); Total Protein 5.3 g/dL (6.3-8.2)
[2018-08-01 11:24] LABS: Potassium 4.4 mmol/L (3.5-5.1)
[2018-08-01 11:25] LABS: ALT 177 U/L (21-72); AST 166 U/L (17-59); Alkaline Phosphatase 264 U/L (38-126)
[2018-08-01 11:41] LABS: Platelet Count 19 k/uL (150-450)
[2018-08-01 11:47] LABS: Neutrophils % (M) 2 %
[2018-08-01 11:48] LABS: Blast Cells # (M) 10.96 k/uL (0); Lymphocytes # (M) 0.25 k/uL (1.0-4.8); Monocytes # (M) 1.39 k/uL (0-1.0); Neutrophils # (M) 0.25 k/uL (1.3-7.7); Nucleated Red Blood Cells 0 /100 WBC (0-0); Total Cells Counted 200
[2018-08-01] MEDS: ACETAMINOPHEN IV (For NPO) 1,000 MG in EMPTY BAG 1 BAG IVPB STA ×2 (12:21→12:57)
[2018-08-01] MEDS ORDERED: VANCOMYCIN IV PER PHARMACY 1 EACH MISC MISCELLANE PRN (19:42)
[2018-08-01] MEDS: ISOSORBIDE MONONITRATE ER 30 MG TAB.ER.24H PO SCH (20:46)
--- NOTE | 2018-08-01 21:38 | P.CONS ---
History of Present Illness - Reason for Consult Consult date: 08/01/18 pancytopenia, acute leukemia - History of Present Illness The patient is a 62-year-old white male, with a obligated past medical history, well known to our service. His malignancy history is as follows: History of CLL/well-differentiated lymphoma, diagnosed December 2000. Treated with 4 cycles of fludarabine, subsequently developed hemolytic anemia and ITP, which responded well to steroid treatment, he did not require treatment for many years. Was seen in consult at [facility] 06/04, admitted for fever and pancytopeni a. Workup, including bone marrow, was negative for malignancy. Had infiltrates on CT chest, improved with abx. He was supposed to f/u in 06/04 but did not do so. He noted a small nodule on the right mid back, this did not improve with time, in fact increased in size and developed discoloration. Dr. Burnette biopsy that on 09/20/14, path positive for Diffuse Large B cell Lymphoma. Late 09/04 pt al so noted a mass developing in his right armpit, staging PET and bone marrow did not reveal any marrow involvement. He did appear to have at least stage III disease, with a retrocrural node involved, questionable lung parenchymal involvement. He was started on R-CHOP completed 6 cycles 02/04. He developed a new lump in his right mid back around 11/06, core biopsy on 12/17/16 revealed a diffuse large B-cell non-Hodgkin's lymphoma, staging PET revealed uptake in the tonsils, neck nodes and presternal soft tissue in addition to the skin. He started salvage R-ICE on 01/07/17, after 2 cycles he had an excellent response. He started cycle 3 on 02/19/17, unfortunately after day 1 he suffered a WA and chemo was stopped. Cardiac catheterization showed complete RCA occlusion with collaterals, and a tight stenosis in the origin of the circumflex that was technically difficult to stent. He was not felt to be a candidate for surgery at this point, based on extent of disease, plan was medical management. He resumed chemo on 03/17/17, with dose reduction. He completed 4 cycles 04/17/17. He was referred to [facility] BMT, recommendation was for cardiology intervention. He had PTCA was successful stenting of the LAD and left circumflex on 08/31/2017. He was referred back to BMT, was seen 10/07, decided not to proceed. He then presented in 06/08, with progressive shortness of breath and marked pancytopenia.. Bone marrow revealed acute myeloid leukemia. He underwent induction with the 7+3 regimen, completing that on 06/12/18. He was then treated supportively with monitoring and therefore transfusion, as well as prophylactic antibiotics. His counts did not show recovery as expected, due to which will marrow was repeated on 07/09/18, unfortunately showing significant persistent AML. Due to his poor performance status, as well as cardiac history, the patient is not a candidate for several standard options. It was decided to treat him with salvage regimen consisting of Vidaza and Venetoclax. We are in the process of getting approval from his insurance for the same. In the meantime the patient is being monitored with regular blood draws, and supportive transfusions. He was recently admitted for blood and platelet transfusions. During that time he had oral bleeds, as he had pulled out his own loose teeth, in the setting of low platelets. He did have some melena, which was felt to be likely due to swallowing blood from his oral bleed. The patient was brought in the ER this time, as apparently he was feeling very weak. According to the patient he was also intermittently confused. The ER notes relate shortness of breath, but the patient denied any change compared to his baseline. He also denied any fevers, or chest pain. On admission hemoglobin was lower at 6.1, and platelets were 8. WBC has increased from baseline, into the 10-12 range predominance of blasts. He was therefore admitted for further management. Review of Systems Constitutional: Reports fatigue, Reports poor appetite, Reports weakness, Reports weight loss Eyes: denies blurred vision, denies pain Ears: deny: decreased hearing, ear discharge, earache, tinnitus Ears, nose, mouth and throat: Reports as per HPI, Reports bleeding gums Cardiovascular: Reports as per HPI, Reports dyspnea on exertion Respiratory: Reports dyspnea Gastrointestinal: Denies abdominal pain, Denies diarrhea, Denies nausea, Denies vomiting Genitourinary: Reports as per HPI Musculoskeletal: Reports muscle weakness Integumentary: Denies pruritus, Denies rash Neurological: Reports change in mentation (?), Reports weakness Psychiatric: Reports difficulty concentrating Endocrine: Reports fatigue, Reports weight change Hematologic/Lymphatic: Reports as per HPI, Reports easy bleeding Past Medical History Past Medical History: Cancer, Myocardial Infarction ([place]), Pneumonia Additional Past Medical History / Comment(s): 2000 diagnosed with CLL treated with chemo successfully, 08/2014 R side back mass-diffuse large B cell lymphoma treated with chemo, 11/2016 recurrent R back mass-diffuse large B cell lymphoma with current chemo, pancytopenia, ITP, anemia, pneumonia with sepsis, 02/20/17 N STEMI with heart cath-tx medically. Last Myocardial Infarction Date:: 02/20/17 History of Any Multi-Drug Resistant Organisms: None Reported Past Surgical History: Heart Catheterization, Heart Catheterization With Stent Additional Past Surgical History / Comment(s): 02/20/17 cardiac cath, 2000 [facility], R upper back mass-needle bxs, colonoscopy-normal, power port, 2019 [facility]. Past Anesthesia/Blood Transfusion Reactions: No Reported Reaction Additional Past Anesthesia/Blood Transfusion Reaction / Comm: Pt has received blood in the past without reaction. 02/20/17 pt had chest pain/SOB (NSTEMI) 1 day post transfusion. Date of Last Stent Placement:: 2017 Past Psychological History: No Psychological Hx Reported Smoking Status: Light tobacco smoker Past Alcohol Use History: None Reported Past Drug Use History: None Reported - Past Family History Father Additional Family Medical History / Comment(s): Father was an alcoholic. He committed suicide. Mother Family Medical History: Cancer Additional Family Medical History / Comment(s): Mother had Breast Cancer 25 yrs ago. She is 85yrs old. Medications and Allergies Home Medications Medication Instructions Recorded Confirmed Type Vitamin B Complex 1 cap PO DAILY 12/11/16 07/31/18 History Folic Acid 1 mg PO DAILY 02/18/17 07/31/18 History Ascorbic Acid [Vitamin C] 500 mg PO DAILY 06/02/18 07/31/18 History Atorvastatin [Lipitor] 80 mg PO DAILY 06/02/18 07/31/18 History Acyclovir [Zovirax] 400 mg PO BID #42 tab 06/13/18 07/31/18 Rx Allopurinol [Zyloprim] 300 mg PO DAILY #21 tablet 06/13/18 07/31/18 Rx Ferrous Sulfate [Feosol] 325 mg PO DAILY 06/23/18 07/31/18 History Metoprolol Succinate [Toprol XL] 25 mg PO BID 06/23/18 07/31/18 History Acetaminophen Tab [Tylenol Tab] 500 mg PO Q4H PRN 07/19/18 07/31/18 History Ondansetron [Zofran ODT] 4 mg PO Q6HR PRN 07/19/18 07/31/18 History traMADol HCl [Ultram] 50 mg PO Q6HR PRN 07/19/18 07/31/18 History Isosorbide Mononitrate ER [Imdur] 15 mg PO HS 07/31/18 07/31/18 History Allergies Allergy/AdvReac Type Severity Reaction Status Date / Time No Known Allergies Allergy Verified 07/31/18 20:30 Physical Exam Vitals: Vital Signs Temp Pulse Resp BP Pulse Ox 08/01/18 12:30 105 H 107/53 08/01/18 11:17 103.3 F H 107 H 18 101/59 98 08/01/18 09:35 100.5 F H 122 H 18 142/83 99 08/01/18 07:49 98.6 F 90 18 124/63 98 08/01/18 07:19 99 F 84 18 112/60 98 08/01/18 07:09 98.3 F 67 19 111/57 100 08/01/18 06:18 98.8 F 90 19 112/59 98 08/01/18 05:48 98.5 F 92 19 106/68 98 08/01/18 05:38 98.1 F 98 19 107/58 98 08/01/18 05:31 98.1 F 93 18 109/58 99 08/01/18 05:19 98.6 F 100 19 108/60 97 08/01/18 04:30 99.2 F 19 08/01/18 03:30 117 H 101/68 08/01/18 02:20 101.5 F H 112 H 19 102/61 98 08/01/18 00:37 110 H 19 105/84 97 07/31/18 19:53 99.2 F 110 H 20 85/52 98 Intake and Output 07/31/18 08/01/18 08/01/18 22:59 06:59 14:59 Intake Total 0 523 Balance 0 523 Intake: Blood Product 0 523 Platelet Irr Pheresis 3 0 213 Acda Unit [id number] Rc Irr As1 Unit 310 [id number] Other: Weight 68.039 kg - Constitutional General appearance: no acute distress - EENT Eyes: EOMI, PERRLA ENT: hearing grossly normal, other (scant old blood on lower gums) - Neck Neck: no lymphadenopathy - Respiratory Respiratory: bilateral: CTA - Cardiovascular Rhythm: regular Heart sounds: normal: S1, S2 - Gastrointestinal General gastrointestinal: normal bowel sounds, soft - Integumentary Integumentary: normal - Neurologic Neurologic: CNII-XII intact - Musculoskeletal Musculoskeletal: strength equal bilaterally - Psychiatric Psychiatric: A&O x's 3, appropriate affect Results CBC & Chem 7: 08/01/18 10:42 08/01/18 10:42 Labs: Abnormal Lab Results - Last 24 Hours (Table) 07/31/18 07/31/18 07/31/18 Range/Units 20:30 20:30 20:30 WBC (3.8-10.6) k/uL RBC 2.10 L (4.30-5.90) m/uL Hgb 6.1 L* D (13.0-17.5) gm/dL Hct 17.0 L* (39.0-53.0) % RDW 17.5 H (11.5-15.5) % Plt Count 8 L* D (150-450) k/uL Blast Cells % 74 H* % Neutrophils # (Manual) 0.20 L* (1.3-7.7) k/uL Lymphocytes # (Manual) (1.0-4.8) k/uL Monocytes # (Manual) (0-1.0) k/uL Blast Cells # (Man) 7.47 H (0) k/uL APTT (22.0-30.0) sec Sodium 134 L (137-145) mmol/L Potassium 2.9 L (3.5-5.1) mmol/L Chloride (98-107) mmol/L Carbon Dioxide 18 L (22-30) mmol/L BUN 33 H (9-20) mg/dL Glucose 224 H (74-99) mg/dL Plasma Lactic Acid Jaylen 3.5 H* (0.7-2.0) mmol/L Calcium 8.2 L (8.4-10.2) mg/dL AST 203 H (17-59) U/L ALT 221 H (21-72) U/L Alkaline Phosphatase 328 H (38-126) U/L Total Protein 5.5 L (6.3-8.2) g/dL Albumin 2.7 L (3.5-5.0) g/dL Urine Protein (Negative) Urine Blood (Negative) Urine Mucus (None) /hpf Crossmatch 07/31/18 07/31/18 08/01/18 Range/Units 20:30 22:11 00:10 WBC (3.8-10.6) k/uL RBC (4.30-5.90) m/uL Hgb (13.0-17.5) gm/dL Hct (39.0-53.0) % RDW (11.5-15.5) % Plt Count (150-450) k/uL Blast Cells % % Neutrophils # (Manual) (1.3-7.7) k/uL Lymphocytes # (Manual) (1.0-4.8) k/uL Monocytes # (Manual) (0-1.0) k/uL Blast Cells # (Man) (0) k/uL APTT 20.7 L (22.0-30.0) sec Sodium (137-145) mmol/L Potassium (3.5-5.1) mmol/L Chloride (98-107) mmol/L Carbon Dioxide (22-30) mmol/L BUN (9-20) mg/dL Glucose (74-99) mg/dL Plasma Lactic Acid Jaylen (0.7-2.0) mmol/L Calcium (8.4-10.2) mg/dL AST (17-59) U/L ALT (21-72) U/L Alkaline Phosphatase (38-126) U/L Total Protein (6.3-8.2) g/dL Albumin (3.5-5.0) g/dL Urine Protein 1+ H (Negative) Urine Blood Moderate H (Negative) Urine Mucus Rare H (None) /hpf Crossmatch See Detail 08/01/18 08/01/18 08/01/18 Range/Units 01:17 10:42 10:42 WBC 12.6 H (3.8-10.6) k/uL RBC 2.57 L (4.30-5.90) m/uL Hgb 7.2 L (13.0-17.5) gm/dL Hct 21.9 L (39.0-53.0) % RDW 17.4 H (11.5-15.5) % Plt Count 19 L* D (150-450) k/uL Blast Cells % 87 H* % Neutrophils # (Manual) 0.25 L* (1.3-7.7) k/uL Lymphocytes # (Manual) 0.25 L (1.0-4.8) k/uL Monocytes # (Manual) 1.39 H (0-1.0) k/uL Blast Cells # (Man) 10.96 H (0) k/uL APTT (22.0-30.0) sec Sodium (137-145) mmol/L Potassium (3.5-5.1) mmol/L Chloride 110 H (98-107) mmol/L Carbon Dioxide 15 L (22-30) mmol/L BUN 21 H (9-20) mg/dL Glucose (74-99) mg/dL Plasma Lactic Acid Jaylen 2.9 H* (0.7-2.0) mmol/L Calcium 7.8 L (8.4-10.2) mg/dL AST 166 H (17-59) U/L ALT 177 H (21-72) U/L Alkaline Phosphatase 264 H (38-126) U/L Total Protein 5.3 L (6.3-8.2) g/dL Albumin 2.5 L (3.5-5.0) g/dL Urine Protein (Negative) Urine Blood (Negative) Urine Mucus (None) /hpf Crossmatch Microbiology - Last 24 Hours (Table) 08/01/18 00:10 Urine Culture - Preliminary Urine,Voided Chest x-ray: report reviewed Assessment and Plan (1) Pancytopenia Narrative/Plan: This is due to his underlying leukemia, which has failed initial induction therapy. This is likely to persist, unless and until his AML can be put into remission. In the meantime he is being followed with regular CBCs with supportive transfusions. Agree with transfusion in the acute setting, to keep hemoglobin greater than 7, and platelets greater than 10. Irradiated blood products only Current Visit: Yes Status: Acute Priority: High Code(s): D61.818 - OTHER PANCYTOPENIA SNOMED Code(s): 304209229 (2) Acute myelogenous leukemia Narrative/Plan: The patient has secondary AML, due to prior chemotherapy. Unfortunately he did not achieve remission with first-line induction chemotherapy. Currently the plan is to treat him with a salvage regimen of Venetoclax and Vidaza. We're in the process of obtaining coverage for the same. In the meantime continue supportive care Current Visit: Yes Status: Acute Priority: High Code(s): C92.00 - ACUTE MYELOBLASTIC LEUKEMIA, NOT HAVING ACHIEVED REMISSION SNOMED Code(s): 06034622 (3) Weakness Narrative/Plan: Progressive weakness and possibly some shortness of breath and confusion was the presenting complaint this time. This could be due to his cytopenias. In addition to supportive transfusions, infection will need to be ruled out. I will also check troponins given his history of CAD, and ongoing low blood counts. Unfortunately, he is not a candidate for any aggressive cardiac intervention, including any type of anticoagulation or antiplatelet therapies due to his severe thrombocytopenia. Therefore his prognosis from the cardiac standpoint is very guarded. This has been discussed in detail with him and his family multiple times Current Visit: Yes Status: Acute Code(s): R53.1 - WEAKNESS SNOMED Code(s): 14090315
[2018-08-01] MEDS: VANCOMYCIN 1,500 MG in SODIUM CHLORIDE 0.9% 250 ML IVPB SCH (21:46)
--- NOTE | 2018-08-01 22:42 | PN ---
PROGRESS NOTE DATE OF SERVICE: 08/01/2018 This 62 -year-old gentleman admitted with weakness, shortness of breath had severe symptomatic anemia. The patient also had a history of acute myelogenous leukemia in the background of chronic lymphoid leukemia, large cell B cell lymphoma. The patient has history of transfusions. Hemoglobin is improved to 7.8. The patient is feeling slightly better. Patient is running a fever. Plasma lactic acid 2.2. Cultures negative. Troponin found to be 0.095. There is no history of fever, rigors or chills. PAST MEDICAL HISTORY: Reviewed. REVIEW OF SYSTEMS: CARDIOVASCULAR: No angina or palpitations. RESPIRATORY: As mentioned earlier. GI no nausea or vomiting. : No dysuria. CENTRAL NERVOUS SYSTEM: No numbness or weakness. CURRENT MEDICATIONS: Reviewed and include: 1. Tylenol 500 mg q.4h p.r.n. 2. Zovirax 400 mg p.o. b.i.d. 3. Xanax 0.5 t.i.d. 4. Unasyn 3 grams IV q.6 hours. 5. Iron sulfate 320 mg daily. 6. Folic acid 1 mg. 7. Dilaudid 0.5 mg q.h.s. 8. Imdur 50 mg q.h.s. 9. Toprol-XL 25 mg b.i.d. 10.Replacement protocols. 11.Protonix 40 mg IV b.i.d. 12.Restoril 15 mg. 13.Ultram. 14.Vancomycin. PHYSICAL EXAMINATION: The patient is alert and oriented times three. Pulse is 87. Blood pressure 109/52, respiratory rate 17, temperature 98.3. Pulse ox 100 percent on room air. HEENT: Conjunctivae normal. Oral mucosa moist. NECK is no jugular venous distention. No carotid bruit. No lymph node enlargement. CARDIOVASCULAR SYSTEM: S1, S2 muffled. RESPIRATORY SYSTEM: Breath sounds diminished at the bases. Bilateral scattered rhonchi and crackles. ABDOMEN: Soft, nontender. LEGS are no edema. No swelling. CENTRAL NERVOUS SYSTEM: Diffusely weak. LAB STUDIES: WBC 12.9, hemoglobin 7.2, platelets 19. Otherwise AST/ALT noted. ASSESSMENT: 1. Severe symptomatic anemia as well as bicytopenia, possibly secondary from acute myelogenous leukemia. 2. Severe thrombocytopenia. 3. Acute myelogenous leukemia. 4. History of pancytopenia. 5. History of chronic lymphoid leukemia. 6. History of large cell B-cell lymphoma. 7. History of pneumonia. 8. History of Coronary artery disease/stent. 9. History of fever. 10.History of nicotine dependence. 11.Hyponatremia. 12.Hypokalemia. 13.Increased random blood sugar. Rule out diabetes type 2. 14.Increased plasma lactic acid. 15.Increased AST, ALT, possibly acute hepatitis multifactorial. RECOMMENDATIONS AND DISCUSSION: Recommend to continue current medications, management and symptomatic treatment. Otherwise, we will monitor the hemoglobin closely, broad-spectrum IV antibiotics given. Patient had poor oral hygiene. Otherwise cultures are negative so far. We will continue to monitor. Closely follow with Dr. Andrade see orders for further details. Guarded prognosis. Further recommendations to follow. MMODL / IJN: [id number] /
[2018-08-02] MEDS: AMPICILLIN-SULBACTAM 3 GM in SODIUM CHLORIDE 0.9% 100 ML IVPB SCH ×4 (02:53→19:24)
[2018-08-02] MEDS: PANTOPRAZOLE 40 MG/10 ML VIAL IVP SCH (08:19)
[2018-08-02] MEDS: METOPROLOL SUCCINATE (ER) 25 MG TAB.ER.24H PO SCH ×2 (08:19→20:10)
[2018-08-02] MEDS: ACYCLOVIR 200 MG CAP PO SCH ×2 (08:19→20:10)
[2018-08-02] MEDS: FERROUS SULFATE 325 MG TAB PO SCH (08:19)
[2018-08-02] MEDS: FOLIC ACID 1 MG TAB PO SCH (08:23)
[2018-08-02] MEDS: VANCOMYCIN 1,500 MG in SODIUM CHLORIDE 0.9% 250 ML IVPB SCH ×2 (08:25→20:10)
[2018-08-02 08:33] LABS: ALT 200 U/L (21-72); AST 212 U/L (17-59); Albumin 2.2 g/dL (3.5-5.0); Alkaline Phosphatase 276 U/L (38-126); Anion Gap 8 mmol/L; Blood Urea Nitrogen 16 mg/dL (9-20); Calcium 7.7 mg/dL (8.4-10.2); Carbon Dioxide 21 mmol/L (22-30); Chloride 113 mmol/L (98-107); Glucose 112 mg/dL (74-99); Magnesium 1.9 mg/dL (1.6-2.3); Potassium 2.9 mmol/L (3.5-5.1); Sodium 142 mmol/L (137-145); Total Bilirubin 0.9 mg/dL (0.2-1.3); Total Protein 4.7 g/dL (6.3-8.2)
[2018-08-02 09:05] LABS: Anisocytosis Slight; MCH 28.3 pg (25.0-35.0); MCHC 34.8 g/dL (31.0-37.0); MCV 81.4 fL (80.0-100.0); Mean Platelet Volume 7.2; Microcytosis Slight; Poikilocytosis Slight; RBC 2.15 m/uL (4.30-5.90); RDW 17.9 % (11.5-15.5); WBC 10.9 k/uL (3.8-10.6)
[2018-08-02 09:10] LABS: Platelet Count 11 k/uL (150-450)
[2018-08-02 09:12] LABS: HCT 17.5 % (39.0-53.0); HGB 6.1 gm/dL (13.0-17.5)
[2018-08-02] MEDS ORDERED: Potassium Replacement Protocol 1 EACH MISC MISCELLANE PRN (09:23)
[2018-08-02] MEDS: POTASSIUM CHLORIDE ER 20 MEQ TAB.ER PO SCH ×4 (09:53→23:52)
[2018-08-02 10:13] LABS: INR 1.3 (<1.2); Partial Thromboplastin Time 32.6 sec (22.0-30.0)
[2018-08-02 11:32] LABS: Blast Cells # (M) 9.37 k/uL (0); Lymphocytes # (M) 0.33 k/uL (1.0-4.8); Nucleated Red Blood Cells 0 /100 WBC (0-0); Total Cells Counted 100
[2018-08-02] MEDS: ACETAMINOPHEN TAB 500 MG TAB PO PRN ×2 (12:45→21:00)
[2018-08-02] MEDS ORDERED: FUROSEMIDE 10 MG/ML 4 ML VIAL IV STA (14:15)
--- NOTE | 2018-08-02 14:18 | P.CRDCN ---
History of Present Illness History of present illness: This is a pleasant 62-year-old male past medical history significant for lymphoma and leukemia, coronary artery disease, ischemic cardiomyopathy and chronic nicotine dependence. He has followed with Dr. Luciano in the office one time in 2017 after his catheterization. The patient states since that time he went to [place] and underwent successful stent placement, these records are not available to me at this time. We have been asked to see him in consultation secondary to mildly elevated troponins on admission. He presented to the hospital with symptoms of generalized weakness, fatigue and shortness of breath. He denies symptoms of chest discomfort, dizziness or palpitations. He underwent cardiac catheterization in 2017 which revealed a total occlusion of the RCA, disease in the ostial circumflex and moderate disease in the LAD. He was declined by CT surgery and maximal medical therapy was recommended. He is currently maintained on atorvastatin 80 mg daily, imdur 15 m gdaily, toprol 25 mg BID. He recently underwent a bone marrow biopsy revealed acute myeloid leukemia. He is currently awaiting insurance approvals for salvage regimen. In the meantime he is being treated with supportive transfusions and prophylactic antibiotics. On admission his hemoglobin was 6.1, platelets 8, potassium 2.9, creatinine 1.07, lactic acid 3.5, AST 203, ALT 221, alkaline phosphatase 328. Troponins were checked, 0.095, 0.138 and 0.144. He is currently receiving a uni t of packed red blood cells and platelets. He is seen and examined laying flat in bed. He denies symptoms of chest discomfort or shortness of breath. However he is mildly tachypneic and complains of feeling extremely cold. EKG reveals sinus mechanism with PVCs form of couplets, right ventricular conduction delay and nonspecific T-wave abnormalities. Chest x-ray reveals focal patchy right upper lobe atelectasis or infiltrate. Repeat lab data from today reveals WBC of 10.9, hemoglobin 6.1, platelets 11, blast cells 86%, sodium 142, potassium 2.9, creatinine 0.95, repeat lactic acid is 1, AST 212, ALT 200 and alkaline phosphatase 276. Most recent echocardiogram obtained June 2018 reveals impaired LV systolic function with ejection fraction 35-40%, basal inferior septal and basal inferior lateral wall motion hypokinesia, mildly thickened mitral valve with thickened chordae. At the time of my exam: CONSTITUTIONAL: Denies fever. Denies chills. EYES: Denies blurred vision. Denies vision changes. Denies eye pain. EARS, NOSE, MOUTH & THROAT: Denies headache. Denies sore throat. Denies ear pain. CARDIOVASCULAR: Denies chest pain. Denies shortness of breath. Denies orthopnea. Denies PND. Denies palpitations. RESPIRATORY: Denies cough. GASTROINTESTINAL: Denies abdominal pain. Denies diarrhea. Denies constipation. Denies nausea. Denies vomiting. MUSCULOSKELETAL: Denies myalgias. INTEGUMENTARY: Denies pruitis. Denies rash. NEUROLOGIC: Denies numbness. Denies tingling. Denies weakness. PSYCHIATRIC: Denies anxiety. Denies depression. ENDOCRINE: Denies fatigue. Denies weight change. Denies polydipsia. Denies polyurina. GENITOURINARY: Denies burning, hematuria or urgency with micturation. HEMATOLOGIC: Denies history of anemia. Denies bleeding. Blood pressure 130/60 heart rate 117 temperature of 100.7F maintaining oxygen saturation on room air GENERAL: This is a 62-year-old male in no apparent distress at the time of my examination. HEENT: Head is atraumatic, normocephalic. Pupils are equal, round. Sclerae anicteric. Conjunctivae are clear. Mucous membranes of the mouth are moist. Neck is supple. There is no jugular venous distention. No carotid bruit is heard. LUNGS: Course scattered rhonchi, bibasilar rales, no wheezes. No chest wall tenderness is noted on palpation or with deep breathing. HEART: Regular rate and rhythm without murmurs, rubs or gallops. S1 and S2 heard. ABDOMEN: Soft, nontender. Bowel sounds are heard. No organomegaly noted. EXTREMITIES: No evidence of peripheral edema and no calf tenderness noted. VASCULAR: Radial and dorsalis pedis pulses palpated, no evidence of clubbing. NEUROLOGIC: Patient is awake, alert and oriented x3. ASSESSMENT Symptomatic anemia Thrombocytopenia Acute myeloid leukemia Mild troponin elevation in the setting of oxygen supply demand mismatch not secondary to an acute coronary event in the absence of symptoms of angina. Severe hypokalemia History of coronary artery disease Ischemic cardiomyopathy, EF 35% Chronic nicotine dependence PLAN Repeat chest xray. Ongoing replacement of potassium per protocol. Initiate on losartan 25 mg daily. Give one time dose of IV lasix 40 mg now. Check NTproBNP. No further troponin levels to be drawn. Blood cultures pending. Further recommendations to follow. Thank you kindly for this consultation. Nurse Practitioner note has been reviewed, I agree with a documented findings and plan of care. Patient was seen and examined. Past Medical History Past Medical History: Cancer, Myocardial Infarction ([place]), Pneumonia Additional Past Medical History / Comment(s): 2000 diagnosed with CLL treated with chemo successfully, 08/2014 R side back mass-diffuse large B cell lymphoma treated with chemo, 11/2016 recurrent R back mass-diffuse large B cell lymphoma with current chemo, pancytopenia, ITP, anemia, pneumonia with sepsis, 02/20/17 NSTEMI with heart cath-tx medically. Last Myocardial Infarction Date:: 02/20/17 History of Any Multi-Drug Resistant Organisms: None Reported Past Surgical History: Heart Catheterization, Heart Catheterization With Stent Additional Past Surgical History / Comment(s): 02/20/17 cardiac cath, 2000 [facility], R upper back mass-needle bxs, colonoscopy-normal, power port, 2019 [facility]. Past Anesthesia/Blood Transfusion Reactions: No Reported Reaction Additional Past Anesthesia/Blood Transfusion Reaction / Comment(s): Pt has received blood in the past without reaction. 02/20/17 pt had chest pain/SOB (NSTEMI) 1 day post transfusion. Date of Last Stent Placement:: 2017 Past Psychological History: No Psychological Hx Reported Smoking Status: Light tobacco smoker Past Alcohol Use History: None Reported Past Drug Use History: None Reported - Past Family History Father Additional Family Medical History / Comment(s): Father was an alcoholic. He committed suicide. Mother Family Medical History: Cancer Additional Family Medical History / Comment(s): Mother had Breast Cancer 25 yrs ago. She is 85yrs old. Medications and Allergies Home Medications Medication Instructions Recorded Confirmed Type Vitamin B Complex 1 cap PO DAILY 12/11/16 07/31/18 History Folic Acid 1 mg PO DAILY 02/18/17 07/31/18 History Ascorbic Acid [Vitamin C] 500 mg PO DAILY 06/02/18 07/31/18 History Atorvastatin [Lipitor] 80 mg PO DAILY 06/02/18 07/31/18 History Acyclovir [Zovirax] 400 mg PO BID #42 tab 06/13/18 07/31/18 Rx Allopurinol [Zyloprim] 300 mg PO DAILY #21 tablet 06/13/18 07/31/18 Rx Ferrous Sulfate [Feosol] 325 mg PO DAILY 06/23/18 07/31/18 History Metoprolol Succinate [Toprol XL] 25 mg PO BID 06/23/18 07/31/18 History Acetaminophen Tab [Tylenol Tab] 500 mg PO Q4H PRN 07/19/18 07/31/18 History Ondansetron [Zofran ODT] 4 mg PO Q6HR PRN 07/19/18 07/31/18 History traMADol HCl [Ultram] 50 mg PO Q6HR PRN 07/19/18 07/31/18 History Isosorbide Mononitrate ER [Imdur] 15 mg PO HS 07/31/18 07/31/18 History Allergies Allergy/AdvReac Type Severity Reaction Status Date / Time No Known Allergies Allergy Verified 07/31/18 20:30 Physical Exam Vitals: Vital Signs Temp Pulse Pulse Resp BP BP Pulse Ox 08/02/18 13:46 100.7 F H 117 H 22 130/60 99 08/02/18 13:43 100.7 F H 117 H 22 130/60 99 08/02/18 12:15 100.9 F H 108 H 22 129/66 08/02/18 12:14 100.9 F H 108 H 22 129/66 08/02/18 11:45 100.5 F H 110 H 24 136/55 100 08/02/18 11:35 100.6 F H 113 H 17 131/65 95 08/02/18 05:59 98.5 F 104 H 22 121/67 98 08/02/18 00:57 105 H 18 119/57 97 08/01/18 21:20 99.4 F 08/01/18 20:30 98.2 F 110 H 22 107/57 99 08/01/18 16:03 98.3 F 87 17 109/54 100 08/01/18 15:07 92 18 107/58 98 Intake and Output 08/01/18 08/02/18 08/02/18 22:59 06:59 14:59 Intake Total 450 310 Balance 450 310 Intake: Intake, IV Titration 450 Amount Ampicillin-Sulbactam 3 gm 200 In Sodium Chloride 0.9% 100 ml @ 200 mls/hr IVPB Q6H [facility] Rx#:[id number] Vancomycin 1,500 mg In 250 Sodium Chloride 0.9% 250 ml @ 125 mls/hr IVPB Q12H [facility] Rx#:[id number] Blood Product 310 Rc Irr As1 Unit 310 [id number] Other: Voiding Method Urinal Urinal Diaper # Voids 3 2 Weight 68.039 kg Results 08/02/18 07:58 08/02/18 07:58 Cardiac Enzymes 08/01/18 08/01/18 08/02/18 Range/Units 17:48 23:46 07:58 AST 212 H (17-59) U/L Troponin I 0.095 H* 0.138 H* (0.000-0.034) ng/mL 08/02/18 Range/Units 07:58 AST (17-59) U/L Troponin I 0.144 H* (0.000-0.034) ng/mL Coagulation 08/02/18 Range/Units 09:49 PT 13.0 H (9.0-12.0) sec APTT 32.6 H (22.0-30.0) sec CBC 08/02/18 Range/Units 07:58 WBC 10.9 H (3.8-10.6) k/uL RBC 2.15 L (4.30-5.90) m/uL Hgb 6.1 L* (13.0-17.5) gm/dL Hct 17.5 L* (39.0-53.0) % Plt Count 11 L* (150-450) k/uL Comprehensive Metabolic Panel 08/02/18 Range/Units 07:58 Sodium 142 (137-145) mmol/L Potassium 2.9 L (3.5-5.1) mmol/L Chloride 113 H (98-107) mmol/L Carbon Dioxide 21 L (22-30) mmol/L BUN 16 (9-20) mg/dL Creatinine 0.95 (0.66-1.25) mg/dL Glucose 112 H (74-99) mg/dL Calcium 7.7 L (8.4-10.2) mg/dL AST 212 H (17-59) U/L ALT 200 H (21-72) U/L Alkaline Phosphatase 276 H (38-126) U/L Total Protein 4.7 L (6.3-8.2) g/dL Albumin 2.2 L (3.5-5.0) g/dL Current Medications Generic Name Dose Route Start Last Admin Trade Name Freq PRN Reason Stop Dose Admin Acetaminophen 500 mg 08/01/18 01:34 08/02/18 12:45 Tylenol Tab PO 500 mg Q4H PRN Administration Mild Pain or Fever > 100.5 Acyclovir 400 mg 08/01/18 09:00 08/02/18 08:19 Zovirax PO 400 mg BID [facility] Administration Alprazolam 0.25 mg 08/01/18 01:36 08/01/18 20:46 Xanax PO 0.25 mg TID PRN Administration Anxiety Ferrous Sulfate 325 mg 08/01/18 09:00 08/02/18 08:19 Feosol PO 325 mg DAILY [facility] Administration Folic Acid 1 mg 08/01/18 09:00 08/02/18 08:23 Folic Acid PO 1 mg DAILY [facility] Administration Hydromorphone HCl 0.5 mg 08/01/18 01:36 Dilaudid IVP Q6HR PRN Severe Pain Ampicillin Sodium/Sulbactam 100 mls @ 200 mls/hr 08/01/18 02:00 08/02/18 08:18 Sodium 3 gm/ Sodium Chloride IVPB 200 mls/hr Q6H [facility] Administration Vancomycin HCl 1,500 mg/ 250 mls @ 125 mls/hr 08/01/18 20:00 08/02/18 08:25 Sodium Chloride IVPB 125 mls/hr Q12H [facility] Administration Isosorbide Mononitrate 15 mg 08/01/18 21:00 08/01/18 20:46 Imdur PO 15 mg HS [facility] Administration Metoprolol Succinate 25 mg 08/01/18 09:00 08/02/18 08:19 Toprol Xl PO 25 mg BID [facility] Administration Miscellaneous Information 1 each 08/01/18 01:36 Magnesium Per Protocol MISCELLANE DAILY PRN Per Protocol Protocol Miscellaneous Information 1 each 08/01/18 01:36 Potassium Per Protocol MISCELLANE DAILY PRN Per Protocol Protocol Miscellaneous Information 1 each 08/02/18 09:23 Potassium Per Protocol MISCELLANE DAILY PRN Per Protocol Protocol Naloxone HCl 0.2 mg 08/01/18 00:40 Narcan IV Q2M PRN Opioid Reversal Ondansetron HCl 4 mg 08/01/18 00:44 Zofran Odt PO Q6HR PRN Nausea Pantoprazole Sodium 40 mg 08/02/18 17:30 Protonix PO AC-BID [facility] Temazepam 15 mg 08/01/18 01:36 Restoril PO HS PRN Insomnia Tramadol HCl 50 mg 08/01/18 01:34 Ultram PO Q6HR PRN Moderate Pain Intake and Output 08/01/18 08/02/18 08/02/18 22:59 06:59 14:59 Intake Total 450 310 Balance 450 310 Intake: Intake, IV Titration 450 Amount Ampicillin-Sulbactam 3 gm 200 In Sodium Chloride 0.9% 100 ml @ 200 mls/hr IVPB Q6H [facility] Rx#:[id number] Vancomycin 1,500 mg In 250 Sodium Chloride 0.9% 250 ml @ 125 mls/hr IVPB Q12H [facility] Rx#:[id number] Blood Product 310 Rc Irr As1 Unit 310 [id number] Other: Voiding Method Urinal Urinal Diaper # Voids 3 2 Weight 68.039 kg Patient Weight 08/03/18 06:59 Weight 68.039 kg 08/02/18 07:58 08/02/18 07:58
[2018-08-02] MEDS: LOSARTAN 25 MG TAB PO SCH (14:45)
[2018-08-02 15:32] LABS: Phosphorus 1.9 mg/dL (2.5-4.5); Uric Acid 2.7 mg/dL (3.5-8.5)
--- NOTE | 2018-08-02 16:32 | P.PN ---
Subjective Progress Note Date: 08/02/18 Principal diagnosis: Febrile Neutropenia AML Platelets today are 11, hemo 6.1 Objective - Vital Signs Vital signs: Vital Signs Temp 100.7 F H 08/02/18 13:46 Pulse 117 H 08/02/18 13:46 Resp 22 08/02/18 13:46 BP 130/60 08/02/18 13:46 Pulse Ox 99 08/02/18 13:46 Intake & Output 08/01/18 08/02/18 08/02/18 18:59 06:59 18:59 Intake Total 077 735 6039 Balance 354 104 2788 Weight 68.039 kg Intake: Intake, IV Titration 450 350 Amount Ampicillin-Sulbactam 3 gm 200 100 In Sodium Chloride 0.9% 100 ml @ 200 mls/hr IVPB Q6H [facility] Rx#:[id number] Vancomycin 1,500 mg In 250 250 Sodium Chloride 0.9% 250 ml @ 125 mls/hr IVPB Q12H [facility] Rx#:[id number] Oral 1150 Blood Product 523 620 Platelet Irr Pheresis 3 213 Acda Unit [id number] Rc Irr As1 Unit 310 [id number] Rc Irr As1 Unit 310 [id number] Other: Voiding Method Urinal Urinal Diaper # Voids 2 2 # Bowel Movements 1 - Exam - Constitutional General appearance: no acute distress - EENT Eyes: EOMI, PERRLA ENT: hearing grossly normal, other (scant old blood on lower gums) - Neck Neck: no lymphadenopathy - Respiratory Respiratory: bilateral: CTA - Cardiovascular Rhythm: regular Heart sounds: normal: S1, S2 - Gastrointestinal General gastrointestinal: normal bowel sounds, soft - Integumentary Integumentary: normal - Neurologic Neurologic: CNII-XII intact - Musculoskeletal Musculoskeletal: strength equal bilaterally - Psychiatric Psychiatric: A&O x's 3, appropriate affect - Labs CBC & Chem 7: 08/02/18 07:58 08/02/18 16:55 Labs: Abnormal Lab Results - Last 24 Hours (Table) 07/31/18 08/01/18 08/01/18 Range/Units 22:11 17:48 23:46 WBC (3.8-10.6) k/uL RBC (4.30-5.90) m/uL Hgb (13.0-17.5) gm/dL Hct (39.0-53.0) % RDW (11.5-15.5) % Plt Count (150-450) k/uL Blast Cells % % Lymphocytes # (Manual) (1.0-4.8) k/uL Monocytes # (Manual) (0-1.0) k/uL Blast Cells # (Man) (0) k/uL PT (9.0-12.0) sec INR (<1.2) APTT (22.0-30.0) sec Potassium (3.5-5.1) mmol/L Chloride (98-107) mmol/L Carbon Dioxide (22-30) mmol/L Glucose (74-99) mg/dL Calcium (8.4-10.2) mg/dL AST (17-59) U/L ALT (21-72) U/L Alkaline Phosphatase (38-126) U/L Troponin I 0.095 H* 0.138 H* (0.000-0.034) ng/mL Total Protein (6.3-8.2) g/dL Albumin (3.5-5.0) g/dL Crossmatch See Detail 08/02/18 08/02/18 08/02/18 Range/Units 07:58 07:58 07:58 WBC 10.9 H (3.8-10.6) k/uL RBC 2.15 L (4.30-5.90) m/uL Hgb 6.1 L* (13.0-17.5) gm/dL Hct 17.5 L* (39.0-53.0) % RDW 17.9 H (11.5-15.5) % Plt Count 11 L* (150-450) k/uL Blast Cells % 86 H* % Lymphocytes # (Manual) 0.33 L (1.0-4.8) k/uL Monocytes # (Manual) 1.20 H (0-1.0) k/uL Blast Cells # (Man) 9.37 H (0) k/uL PT (9.0-12.0) sec INR (<1.2) APTT (22.0-30.0) sec Potassium 2.9 L (3.5-5.1) mmol/L Chloride 113 H (98-107) mmol/L Carbon Dioxide 21 L (22-30) mmol/L Glucose 112 H (74-99) mg/dL Calcium 7.7 L (8.4-10.2) mg/dL AST 212 H (17-59) U/L ALT 200 H (21-72) U/L Alkaline Phosphatase 276 H (38-126) U/L Troponin I 0.144 H* (0.000-0.034) ng/mL Total Protein 4.7 L (6.3-8.2) g/dL Albumin 2.2 L (3.5-5.0) g/dL Crossmatch 08/02/18 08/02/18 Range/Units 09:49 13:50 WBC (3.8-10.6) k/uL RBC (4.30-5.90) m/uL Hgb (13.0-17.5) gm/dL Hct (39.0-53.0) % RDW (11.5-15.5) % Plt Count (150-450) k/uL Blast Cells % % Lymphocytes # (Manual) (1.0-4.8) k/uL Monocytes # (Manual) (0-1.0) k/uL Blast Cells # (Man) (0) k/uL PT 13.0 H (9.0-12.0) sec INR 1.3 H (<1.2) APTT 32.6 H (22.0-30.0) sec Potassium (3.5-5.1) mmol/L Chloride (98-107) mmol/L Carbon Dioxide (22-30) mmol/L Glucose (74-99) mg/dL Calcium (8.4-10.2) mg/dL AST (17-59) U/L ALT (21-72) U/L Alkaline Phosphatase (38-126) U/L Troponin I 0.124 H* (0.000-0.034) ng/mL Total Protein (6.3-8.2) g/dL Albumin (3.5-5.0) g/dL Crossmatch Microbiology - Last 24 Hours (Table) 08/01/18 00:10 Urine Culture - Final Urine,Voided 08/01/18 01:47 Blood Culture - Preliminary Blood No Growth after 24 hours Assessment and Plan Plan: Pancytopenia - Secondary to underlying leukemia, which unfortunetly he has failed initial induction therapy - Blast Count today 86% - This will continue to worsen if his AML does not respond to therapy with re- induction - Daily CBC and Supportive irradiated transfusions at this time - Treatment of active infections and prophylaxis for Viral and fungal - Keep Platlet count greater than 10, and hemoglobin greater than 7 - Transfuse today for hemoglobin 6.1 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 - Failed induction chemotherapy - Plan to treat with Salvage regimen of Venetoclax and Vidaza, currently in insurance review - In the interim will continue supportive care Weakness - Progressive weakness and possibly some shortness of breath and confusion was the presenting complaint this time. - This could be due to his cytopenias. In addition to supportive transfusions, infection will need to be ruled out. - If cardiac etiology. Unfortunately, he is not a candidate for any aggressive cardiac intervention, including any type of anticoagulation or antiplatelet therapies due to his severe thrombocytopenia. Therefore his prognosis from the cardiac standpoint is very guarded. PLan: - Awaiting for clearance for next line therapy - May need to initiate on Vidaza in the interim as he continues to progress - Supportive care and transfusions
[2018-08-02 17:30] LABS: Calcium 8.1 mg/dL (8.4-10.2); Potassium 3.3 mmol/L (3.5-5.1)
[2018-08-02] MEDS: PANTOPRAZOLE 40 MG TABLET PO SCH (18:08)
--- NOTE | 2018-08-02 18:40 | PN ---
PROGRESS NOTE DATE OF SERVICE: 08/02/2018 This 62-year-old gentleman who was admitted with severe symptomatic anemia as well as bicytopenia, possibly secondary to acute myeloid leukemia, is being closely monitored. The patient also had possible poor oral hygiene and mucositis. The patient is also receiving broad-spectrum IV antibiotics in the form of Unasyn. The hemoglobin is 6.1 at this time. Patient is awaiting more transfusion. Potassium is 2.9. Past medical history reviewed. REVIEW OF SYSTEMS: CARDIOVASCULAR SYSTEM: No angina, palpitations. RESPIRATORY SYSTEM: As mentioned earlier. GI: No nausea, vomiting. : No dysuria or retention. NERVOUS SYSTEM: No numbness, weakness. CURRENT MEDICATIONS: Reviewed. They include: 1. Tylenol 500 mg q.4 p.r.n. 2. Zovirax 400 mg p.o. b.i.d. 3. Xanax 0.25 p.o. t.i.d. 4. Unasyn 3 grams IV q.6. 5. Iron sulfate 325 mg daily. 6. Folic acid 1 mg daily. 7. Dilaudid 0.5 mg q.6 p.r.n. 8. Imdur 15 mg at bedtime. 9. Cozaar 25 mg p.o. daily. 10.Toprol-XL 25 mg p.o. b.i.d. 11.Replacement protocols. 12.Narcan 0.2 q.2 p.r.n. 13.Zofran. 14.Protonix 40 mg b.i.d. 15.Restoril 15 mg at bedtime. 16.Ultram 50 mg p.o. b.i.d. 17.Vancomycin. PHYSICAL EXAMINATION: Patient is alert, oriented x3. Pulse 117, blood pressure 130/60, respiration 22, temperature 100.7, pulse ox 99% on room air. HEENT: Conjunctivae normal. Oral mucosa moist. NECK: No jugular venous distention. No carotid bruit. No lymph node enlargement. CARDIOVASCULAR SYSTEM: S1, S2 muffled. RESPIRATORY SYSTEM: Breath sounds diminished at the bases. Bilateral scattered rhonchi and crackles. Expiratory wheezing also present. ABDOMEN: Soft, non-tender. LEGS: No edema. No swelling. NERVOUS SYSTEM: No focal deficit. LABS: WBC 10.9, hemoglobin 1.6. Troponin 0.124. ASSESSMENT: 1. Severe symptomatic anemia as well as lightheadedness, possibly secondary to acute myelogenous leukemia. 2. Severe thrombocytopenia. 3. Acute myelogenous leukemia. 4. Continued fever with possible sepsis. 5. History of pancytopenia. 6. History of chronic lymphoid leukemia. 7. History of large-cell B-cell lymphoma. 8. History of pneumonia. 9. History of coronary artery disease, stent. 10.History of fever. 11.History of nicotine dependence. 12.Hyponatremia. 13.Hypokalemia. 14.Increased random blood sugar. Rule out diabetes mellitus, type 2. 15.Increased plasma lactic acid. 16.Increased AST, ALT, possibly acute hepatitis, multifactorial. RECOMMENDATIONS AND DISCUSSION: I recommend to continue current medications, continue with the monitoring, symptomatic treatment. Repeat labs. The patient is currently on Unasyn. We will continue to monitor. I would also recommend infectious disease evaluation. Guarded prognosis because of multiple complex medical issues. Further recommendations to follow. Continue the rest of the medications. MMODL / IJN: [id number] /
[2018-08-02] MEDS: ISOSORBIDE MONONITRATE ER 30 MG TAB.ER.24H PO SCH (20:10)
[2018-08-02] MEDS ORDERED: METOPROLOL TARTRATE 50 MG TAB PO STA (20:54)
[2018-08-02] MEDS: DILTIAZEM 125 MG in SODIUM CHLORIDE 0.9% 100 ML IV SCH (22:00)
[2018-08-02] MEDS: DILTIAZEM DRIP BOLUS FROM BAG 1 MG SOLN IV ONE (22:11)
[2018-08-02 23:14] LABS: Anisocytosis Slight; MCH 28.6 pg (25.0-35.0); MCHC 35.4 g/dL (31.0-37.0); MCV 80.8 fL (80.0-100.0); Mean Platelet Volume 7.8; Microcytosis Slight; Poikilocytosis Slight; RBC 2.36 m/uL (4.30-5.90); RDW 17.6 % (11.5-15.5); WBC 13.9 k/uL (3.8-10.6)
[2018-08-02 23:15] LABS: HCT 19.1 % (39.0-53.0); HGB 6.8 gm/dL (13.0-17.5); Platelet Count 7 k/uL (150-450)
[2018-08-02 23:36] LABS: Calcium 7.6 mg/dL (8.4-10.2); Potassium 2.9 mmol/L (3.5-5.1)
[2018-08-02] MEDS ORDERED: ACETAMINOPHEN TAB 500 MG TAB PO STA (23:40)
[2018-08-03] MEDS: POTASSIUM CHLORIDE 10 MEQ in WATER FOR INJECTION 1 100ML.BAG IVPB SCH ×3 (00:27→03:35)
[2018-08-03] MEDS: POTASSIUM CHLORIDE ER 20 MEQ TAB.ER PO SCH ×3 (00:52→19:57)
[2018-08-03] MEDS: DILTIAZEM DRIP BOLUS FROM BAG 1 MG SOLN IV ONE (03:13)
[2018-08-03] MEDS: AMPICILLIN-SULBACTAM 3 GM in SODIUM CHLORIDE 0.9% 100 ML IVPB SCH ×4 (05:12→19:57)
[2018-08-03] MEDS: PANTOPRAZOLE 40 MG TABLET PO SCH ×2 (06:11→16:19)
[2018-08-03 06:42] LABS: Anisocytosis Slight; HCT 27.3 % (39.0-53.0); HGB 9.2 gm/dL (13.0-17.5); MCH 27.8 pg (25.0-35.0); MCHC 33.5 g/dL (31.0-37.0); MCV 82.8 fL (80.0-100.0); Mean Platelet Volume 6.7; WBC 12.1 k/uL (3.8-10.6)
[2018-08-03 06:52] LABS: ALT 716 U/L (21-72); Albumin 2.5 g/dL (3.5-5.0); Alkaline Phosphatase 439 U/L (38-126); Anion Gap 6 mmol/L; Blood Urea Nitrogen 20 mg/dL (9-20); Calcium 7.7 mg/dL (8.4-10.2); Carbon Dioxide 22 mmol/L (22-30); Chloride 112 mmol/L (98-107); Glucose 102 mg/dL (74-99); Magnesium 1.8 mg/dL (1.6-2.3); Potassium 4.3 mmol/L (3.5-5.1); Sodium 140 mmol/L (137-145); Total Bilirubin 1.3 mg/dL (0.2-1.3); Total Protein 5.2 g/dL (6.3-8.2)
[2018-08-03 07:17] LABS: AST 925 U/L (17-59)
[2018-08-03 08:07] LABS: Lymphocytes # (M) 0.73 k/uL (1.0-4.8); Monocytes # (M) 0.48 k/uL (0-1.0); Neutrophils # (M) 0.61 k/uL (1.3-7.7); Neutrophils % (M) 5 %
[2018-08-03 08:08] LABS: Blast Cells # (M) 10.53 k/uL (0); Nucleated Red Blood Cells 0 /100 WBC (0-0); Poikilocytosis (M) Present; Total Cells Counted 200
[2018-08-03] MEDS: FOLIC ACID 1 MG TAB PO SCH (09:19)
[2018-08-03] MEDS: FERROUS SULFATE 325 MG TAB PO SCH (09:19)
[2018-08-03] MEDS: METOPROLOL SUCCINATE (ER) 25 MG TAB.ER.24H PO SCH ×2 (09:19→19:57)
[2018-08-03] MEDS: ACETAMINOPHEN TAB 500 MG TAB PO PRN ×3 (09:24→20:51)
[2018-08-03] MEDS: VANCOMYCIN 1,500 MG in SODIUM CHLORIDE 0.9% 250 ML IVPB SCH ×2 (09:58→19:57)
--- NOTE | 2018-08-03 10:26 | XR ---
EXAMINATION TYPE: XR chest 2V DATE OF EXAM: 08/03/2018 COMPARISON: None HISTORY: 62 year-old male shortness of breath, rhonchi TECHNIQUE: Frontal and lateral views FINDINGS: Heart normal size. Aorta within normal limits. Mild diffuse interstitial densities persist. Focal per ipheral right midlung opacity also persists. Right anterior chest wall injection port with subclavian access and catheter tip obscured by overlyin g lead, likely at the lower SVC. No pleural effusion. IMPRESSION: 1. COPD with mild interstitial changes, possible bronchitis or asthma. 2. Continued focal peripheral right midlung density.
[2018-08-03] MEDS: LOSARTAN 25 MG TAB PO SCH (11:28)
[2018-08-03] MEDS: ACYCLOVIR 200 MG CAP PO SCH ×2 (12:35→21:20)
[2018-08-03] MEDS: DILTIAZEM 125 MG in SODIUM CHLORIDE 0.9% 100 ML IV SCH (12:37)
--- NOTE | 2018-08-03 14:54 | P.PN ---
Subjective Progress Note Date: 08/03/18 Principal diagnosis: Febrile Neutropenia AML LFTs are increased by double today platlets down to 6. Transfusion ordered. CT scan abdomen ordered, GI consult placed Objective - Vital Signs Vital signs: Vital Signs Temp 101.6 F H 08/03/18 14:34 Pulse 91 08/03/18 14:34 Resp 18 08/03/18 14:34 BP 98/60 08/03/18 14:34 Pulse Ox 99 08/03/18 14:34 Intake & Output 08/02/18 08/03/18 08/03/18 18:59 06:59 18:59 Intake Total 2120 714.375 777 Output Total 300 Balance 2120 414.375 777 Weight 68.039 kg 69 kg Intake: IV 400 Potassium Chloride 10 meq 400 In Water For Injection 1 100ml.bag @ 100 mls/hr IVPB Q1HR [facility] Rx#: [id number] Intake, IV Titration 350 4.375 350 Amount Ampicillin-Sulbactam 3 gm 100 100 In Sodium Chloride 0.9% 100 ml @ 200 mls/hr IVPB Q6H [facility] Rx#:[id number] Diltiazem 125 mg In 4.375 Sodium Chloride 0.9% 100 ml @ 7.5 MG/HR 7.5 mls/hr IV .[id number] [facility] Rx#: [id number] Vancomycin 1,500 mg In 250 250 Sodium Chloride 0.9% 250 ml @ 125 mls/hr IVPB Q12H [facility] Rx#:[id number] Oral 1150 120 Blood Product 620 310 307 Platelet Irr Pheresis 2 307 Acda Unit [id number] Rc Irr As1 Unit 310 [id number] Rc Irr As1 Unit 310 [id number] Output: Urine 300 Other: Voiding Method Urinal Urinal Urinal Diaper Diaper Diaper # Voids 2 2 2 # Bowel Movements 2 - Exam - Constitutional General appearance: no acute distress - EENT Eyes: EOMI, PERRLA ENT: hearing grossly normal, other (scant old blood on lower gums) - Neck Neck: no lymphadenopathy - Respiratory Respiratory: bilateral: CTA - Cardiovascular Rhythm: regular Heart sounds: normal: S1, S2 - Gastrointestinal General gastrointestinal: normal bowel sounds, soft - Integumentary Integumentary: normal - Neurologic Neurologic: CNII-XII intact - Musculoskeletal Musculoskeletal: strength equal bilaterally - Psychiatric Psychiatric: A&O x's 3, appropriate affect - Labs CBC & Chem 7: 08/03/18 05:36 08/03/18 05:36 Labs: Abnormal Lab Results - Last 24 Hours (Table) 07/31/18 08/02/18 08/02/18 Range/Units 22:11 09:46 16:55 WBC (3.8-10.6) k/uL RBC (4.30-5.90) m/uL Hgb (13.0-17.5) gm/dL Hct (39.0-53.0) % RDW (11.5-15.5) % Plt Count (150-450) k/uL Blast Cells % % Neutrophils # (Manual) (1.3-7.7) k/uL Lymphocytes # (Manual) (1.0-4.8) k/uL Blast Cells # (Man) (0) k/uL Potassium 3.3 L (3.5-5.1) mmol/L Chloride 111 H (98-107) mmol/L Carbon Dioxide (22-30) mmol/L Glucose 128 H (74-99) mg/dL Uric Acid 2.7 L (3.5-8.5) mg/dL Calcium 8.1 L (8.4-10.2) mg/dL Phosphorus 1.9 L (2.5-4.5) mg/dL AST (17-59) U/L ALT (21-72) U/L Alkaline Phosphatase (38-126) U/L Lactate Dehydrogenase 1217 H (313-618) U/L Total Protein (6.3-8.2) g/dL Albumin (3.5-5.0) g/dL Crossmatch See Detail 08/02/18 08/02/18 08/03/18 Range/Units 22:59 22:59 05:36 WBC 13.9 H 12.1 H (3.8-10.6) k/uL RBC 2.36 L 3.30 L (4.30-5.90) m/uL Hgb 6.8 L* 9.2 L D (13.0-17.5) gm/dL Hct 19.1 L* 27.3 L (39.0-53.0) % RDW 17.6 H 17.0 H (11.5-15.5) % Plt Count 7 L* 8 L* (150-450) k/uL Blast Cells % 87 H* % Neutrophils # (Manual) 0.61 L (1.3-7.7) k/uL Lymphocytes # (Manual) 0.73 L (1.0-4.8) k/uL Blast Cells # (Man) 10.53 H (0) k/uL Potassium 2.9 L (3.5-5.1) mmol/L Chloride 110 H (98-107) mmol/L Carbon Dioxide 21 L (22-30) mmol/L Glucose 144 H (74-99) mg/dL Uric Acid (3.5-8.5) mg/dL Calcium 7.6 L (8.4-10.2) mg/dL Phosphorus (2.5-4.5) mg/dL AST (17-59) U/L ALT (21-72) U/L Alkaline Phosphatase (38-126) U/L Lactate Dehydrogenase (313-618) U/L Total Protein (6.3-8.2) g/dL Albumin (3.5-5.0) g/dL Crossmatch 08/03/18 Range/Units 05:36 WBC (3.8-10.6) k/uL RBC (4.30-5.90) m/uL Hgb (13.0-17.5) gm/dL Hct (39.0-53.0) % RDW (11.5-15.5) % Plt Count (150-450) k/uL Blast Cells % % Neutrophils # (Manual) (1.3-7.7) k/uL Lymphocytes # (Manual) (1.0-4.8) k/uL Blast Cells # (Man) (0) k/uL Potassium (3.5-5.1) mmol/L Chloride 112 H (98-107) mmol/L Carbon Dioxide (22-30) mmol/L Glucose 102 H (74-99) mg/dL Uric Acid (3.5-8.5) mg/dL Calcium 7.7 L (8.4-10.2) mg/dL Phosphorus (2.5-4.5) mg/dL AST 925 H (17-59) U/L ALT 716 H (21-72) U/L Alkaline Phosphatase 439 H (38-126) U/L Lactate Dehydrogenase (313-618) U/L Total Protein 5.2 L (6.3-8.2) g/dL Albumin 2.5 L (3.5-5.0) g/dL Crossmatch Microbiology - Last 24 Hours (Table) 08/01/18 01:47 Blood Culture - Preliminary Blood No Growth after 48 hours 08/01/18 00:10 Urine Culture - Final Urine,Voided Assessment and Plan Plan: Pancytopenia - Secondary to underlying leukemia, which unfortunetly he has failed initial induction therapy - Blast Count today 86% - This will continue to worsen if his AML does not respond to therapy with re-induction - Daily CBC and Supportive irradiated transfusions at this time - Treatment of active infections and prophylaxis for Viral and fungal - Keep Platlet count greater than 10, and hemoglobin greater than 7 - Transfuse today for hemoglobin 6.1 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 - Failed induction chemotherapy - Plan to treat with Salvage regimen of Venetoclax and Vidaza, currently in insurance review - In the interim will continue supportive care Weakness - Progressive weakness and possibly some shortness of breath and confusion was the presenting complaint this time. - This could be due to his cytopenias. In addition to supportive transfusions, infection will need to be ruled out. - If cardiac etiology. Unfortunately, he is not a candidate for any aggressive cardiac intervention, including any type of anticoagulation or antiplatelet therapies due to his severe thrombocytopenia. Therefore his prognosis from the cardiac standpoint is very guarded. Abnormal and increased Liver Enzymes: - Medications versus other - GI Consult Placed - CT abdomen to assess - Review of medications - CMP in am. PLan: - Awaiting for clearance for next line therapy - May need to initiate on Vidaza in the interim as he continues to progress - Supportive care and transfusions
--- NOTE | 2018-08-03 15:32 | P.PN ---
Subjective Progress Note Date: 08/03/18 This is a pleasant 62-year-old male past medical history significant for lymphoma and leukemia, coronary artery disease, ischemic cardiomyopathy and chronic nicotine dependence. He has followed with Dr. Luciano in the office one time in 2017 after his catheterization. The patient states since that time he went to [place] and underwent successful stent placement, these records are not available to me at this time. We were initially asked to see him in consultation secondary to mildly elevated troponins on admission. He presented to the hospital with symptoms of generalized weakness, fatigue and shortness of breath. He denies symptoms of chest discomfort, dizziness or palpitations. He underwent cardiac catheterization in 2017 which revealed a total occlusion of the RCA, disease in the ostial circumflex and moderate disease in the LAD. He was declined by CT surgery and maximal medical therapy was recommended. He is currently maintained on atorvastatin 80 mg daily, imdur 15 m gdaily, toprol 25 mg BID. He recently underwent a bone marrow biopsy revealed acute myeloid leuke amarilis. Last evening the patient went into atrial fibrillation with a rapid ventricular response. Has since converted to normal sinus rhythm. Patient and the family were educated regarding anticoagulation however the patient cannot be on anticoagulation at this time. At the time of her evaluation today he is currently receiving platelet transfusion. Blood pressure 98/60 with a heart rate of 90, temperature 101.6. White blood cell count 12.1, hemoglobin 9.2, platelet count 8, sodium 140, potassium 4.3, BUN 20 and creatinine 0.9.. AST 925, ALT 716, alk phos 439. Objective - Vital Signs Vital signs: Vital Signs Temp 101.6 F H 08/03/18 14:34 Pulse 91 08/03/18 14:34 Resp 18 08/03/18 14:34 BP 98/60 08/03/18 14:34 Pulse Ox 99 08/03/18 14:34 Intake & Output 08/02/18 08/03/18 08/03/18 18:59 06:59 18:59 Intake Total 2120 714.375 897 Output Total 300 Balance 2120 414.375 897 Weight 68.039 kg 69 kg Intake: IV 400 Potassium Chloride 10 meq 400 In Water For Injection 1 100ml.bag @ 100 mls/hr IVPB Q1HR [facility] Rx#: [id number] Intake, IV Titration 350 4.375 350 Amount Ampicillin-Sulbactam 3 gm 100 100 In Sodium Chloride 0.9% 100 ml @ 200 mls/hr IVPB Q6H [facility] Rx#:[id number] Diltiazem 125 mg In 4.375 Sodium Chloride 0.9% 100 ml @ 7.5 MG/HR 7.5 mls/hr IV .[id number] [facility] Rx#: [id number] Vancomycin 1,500 mg In 250 250 Sodium Chloride 0.9% 250 ml @ 125 mls/hr IVPB Q12H [facility] Rx#:[id number] Oral 1150 240 Blood Product 620 310 307 Platelet Irr Pheresis 2 307 Acda Unit [id number] Rc Irr As1 Unit 310 [id number] Rc Irr As1 Unit 310 [id number] Output: Urine 300 Other: Voiding Method Urinal Urinal Urinal Diaper Diaper Diaper # Voids 2 2 2 # Bowel Movements 2 - Exam GENERAL: This is a 62-year-old male in no apparent distress at the time of my examination. HEENT: Head is atraumatic, normocephalic. Pupils are equal, round. Sclerae anicteric. Conjunctivae are clear. Mucous membranes of the mouth are moist. Neck is supple. There is no jugular venous distention. No carotid bruit is heard. LUNGS: Course scattered rhonchi, bibasilar rales, no wheezes. No chest wall tenderness is noted on palpation or with deep breathing. HEART: Regular rate and rhythm without murmurs, rubs or gallops. S1 and S2 heard. ABDOMEN: Soft, nontender. Bowel sounds are heard. No organomegaly noted. EXTREMITIES: No evidence of peripheral edema and no calf tenderness noted. VASCULAR: Radial and dorsalis pedis pulses palpated, no evidence of clubbing. NEUROLOGIC: Patient is awake, alert and oriented x3. - Labs CBC & Chem 7: 08/03/18 05:36 08/03/18 05:36 Labs: Abnormal Lab Results - Last 24 Hours (Table) 07/31/18 08/02/18 08/02/18 Range/Units 22:11 09:46 16:55 WBC (3.8-10.6) k/uL RBC (4.30-5.90) m/uL Hgb (13.0-17.5) gm/dL Hct (39.0-53.0) % RDW (11.5-15.5) % Plt Count (150-450) k/uL Blast Cells % % Neutrophils # (Manual) (1.3-7.7) k/uL Lymphocytes # (Manual) (1.0-4.8) k/uL Blast Cells # (Man) (0) k/uL Potassium 3.3 L (3.5-5.1) mmol/L Chloride 111 H (98-107) mmol/L Carbon Dioxide (22-30) mmol/L Glucose 128 H (74-99) mg/dL Uric Acid 2.7 L (3.5-8.5) mg/dL Calcium 8.1 L (8.4-10.2) mg/dL Phosphorus 1.9 L (2.5-4.5) mg/dL AST (17-59) U/L ALT (21-72) U/L Alkaline Phosphatase (38-126) U/L Lactate Dehydrogenase 1217 H (313-618) U/L Total Protein (6.3-8.2) g/dL Albumin (3.5-5.0) g/dL Crossmatch See Detail 08/02/18 08/02/18 08/03/18 Range/Units 22:59 22:59 05:36 WBC 13.9 H 12.1 H (3.8-10.6) k/uL RBC 2.36 L 3.30 L (4.30-5.90) m/uL Hgb 6.8 L* 9.2 L D (13.0-17.5) gm/dL Hct 19.1 L* 27.3 L (39.0-53.0) % RDW 17.6 H 17.0 H (11.5-15.5) % Plt Count 7 L* 8 L* (150-450) k/uL Blast Cells % 87 H* % Neutrophils # (Manual) 0.61 L (1.3-7.7) k/uL Lymphocytes # (Manual) 0.73 L (1.0-4.8) k/uL Blast Cells # (Man) 10.53 H (0) k/uL Potassium 2.9 L (3.5-5.1) mmol/L Chloride 110 H (98-107) mmol/L Carbon Dioxide 21 L (22-30) mmol/L Glucose 144 H (74-99) mg/dL Uric Acid (3.5-8.5) mg/dL Calcium 7.6 L (8.4-10.2) mg/dL Phosphorus (2.5-4.5) mg/dL AST (17-59) U/L ALT (21-72) U/L Alkaline Phosphatase (38-126) U/L Lactate Dehydrogenase (313-618) U/L Total Protein (6.3-8.2) g/dL Albumin (3.5-5.0) g/dL Crossmatch 08/03/18 Range/Units 05:36 WBC (3.8-10.6) k/uL RBC (4.30-5.90) m/uL Hgb (13.0-17.5) gm/dL Hct (39.0-53.0) % RDW (11.5-15.5) % Plt Count (150-450) k/uL Blast Cells % % Neutrophils # (Manual) (1.3-7.7) k/uL Lymphocytes # (Manual) (1.0-4.8) k/uL Blast Cells # (Man) (0) k/uL Potassium (3.5-5.1) mmol/L Chloride 112 H (98-107) mmol/L Carbon Dioxide (22-30) mmol/L Glucose 102 H (74-99) mg/dL Uric Acid (3.5-8.5) mg/dL Calcium 7.7 L (8.4-10.2) mg/dL Phosphorus (2.5-4.5) mg/dL AST 925 H (17-59) U/L ALT 716 H (21-72) U/L Alkaline Phosphatase 439 H (38-126) U/L Lactate Dehydrogenase (313-618) U/L Total Protein 5.2 L (6.3-8.2) g/dL Albumin 2.5 L (3.5-5.0) g/dL Crossmatch Microbiology - Last 24 Hours (Table) 08/01/18 01:47 Blood Culture - Preliminary Blood No Growth after 48 hours Assessment and Plan Plan: Assessment and plan #1 Symptomatic anemia #2 Thrombocytopenia #3 Acute myeloid leukemia #4 Mild troponin elevation in the setting of oxygen supply demand mismatch not secondary to an acute coronary event in the absence of symptoms of angina. #5 Severe hypokalemia #6History of coronary artery disease #7 Ischemic cardiomyopathy, EF 35% #8 Chronic nicotine dependence #9 paroxysmal atrial fibrillation Plan From cardiology's perspective, we'll recommend to continue this patient on his current medications. He is not a candidate for anticoagulation because of cytopenia. We will follow this patient along with you now on an as-needed basis only, please don't hesitate to call with any questions. DNP note has been reviewed, I agree with a documented findings and plan of care. Patient was seen and examined.
[2018-08-03] MEDS ORDERED: SODIUM CHLORIDE 0.9% 500 ML 500 ML IV ONE (17:23)
[2018-08-03] MEDS ORDERED: VANCOMYCIN TROUGH DUE 1 EACH MISC MISCELLANE ONE (19:00)
[2018-08-03] MEDS: ISOSORBIDE MONONITRATE ER 30 MG TAB.ER.24H PO SCH (19:57)
--- NOTE | 2018-08-03 20:42 | PN ---
PROGRESS NOTE DATE OF SERVICE: 08/03/2018 This 62-year-old gentleman was admitted with severe symptomatic anemia and also had bicytopenia. The patient had atrial fibrillation with a fast ventricular rate. Patient was transferred to the medical floor and is being monitored at this time. The patient also thrombocytopenia and acute myeloid leukemia. Apparently the insurance company does not sanction the chemotherapy. Dr. Bee's office is working with the patient for the same. Past medical history reviewed. REVIEW OF SYSTEMS: CARDIOVASCULAR SYSTEM: As mentioned earlier. RESPIRATORY SYSTEM: As mentioned earlier. GI: No nausea, vomiting. : No dysuria or retention. NERVOUS SYSTEM: No numbness, weakness. CURRENT MEDICATIONS: Reviewed. They include: 1. Tylenol 500 q.4 p.r.n. 2. Zovirax 400 mg b.i.d. 3. Xanax 0.25 t.i.d. 4. Unasyn 3 grams IV q.6. 5. Diltiazem drip. 6. Iron sulfate 325 mg p.o. daily. 7. Folic acid 1 mg daily. 8. Dilaudid p.r.n. 9. Imdur 30 mg. 10.Replacement protocols. 11.Zofran. 12.K-Dur. 13.Restoril. 14.Ultram. 15.Vancomycin. PHYSICAL EXAMINATION: Patient alert and oriented x3. Pulse is 91, blood pressure 98/60, respiration 18, temperature 101.6, pulse ox 99% on room air. HEENT: Conjunctivae normal. Oral mucosa moist. NECK: No jugular venous distention. No carotid bruit. No lymph node enlargement. CARDIOVASCULAR SYSTEM: S1, S2 muffled. RESPIRATORY SYSTEM: Breath sounds diminished at the bases. Bilateral scattered rhonchi and crackles. ABDOMEN: Soft, non-tender. No mass palpable. LEGS: No edema. No swelling. NERVOUS SYSTEM: Higher functions as mentioned earlier. Moves all 4 limbs. No focal motor or sensory deficit. LYMPHATICS: No lymph node palpable in neck, axillae or groin. JOINTS: No active deforming arthropathy. LABS: Labs at this time show WBC 12.1, hemoglobin 9.2. The platelets were 8. Sodium 140, potassium 4.3. AST is 925, ALT 716. Troponin 0.124. ASSESSMENT: 1. Severe symptomatic anemia as well as lightheadedness, possibly secondary to acute myelogenous leukemia. 2. Severe thrombocytopenia. 3. Acute myelogenous leukemia. 4. Continued fever with possible sepsis. 5. History of pancytopenia. 6. Chronic lymphoid leukemia. 7. Large-cell B-cell lymphoma. 8. History of pneumonia. 9. History of coronary artery disease, stent. 10.History of fever. 11.History of nicotine dependence. 12.Hyponatremia. 13.Hypokalemia. 14.Increased random blood sugar. Rule out diabetes mellitus. 15.Increased plasma lactic acid. 16.Increased AST, ALT; possibly acute hepatitis, multifactorial. RECOMMENDATIONS AND DISCUSSION: I recommend to continue current medications, continue with the monitoring, symptomatic treatment. Continue with broad-spectrum IV antibiotics. Infectious disease evaluation. Monitor with the multiple consultants. Prognosis guarded because of the multiple complex medical issues. Further recommendations to follow. Discussed with the patient. Discussed with the family. Discussed with cyanide case hardener. ISACC / NANCY: [id number] /
[2018-08-03 22:58] LABS: INR 1.3 (<1.2); Partial Thromboplastin Time 31.8 sec (22.0-30.0); Prothrombin Time 13.1 sec (9.0-12.0)
[2018-08-04] MEDS: DILTIAZEM 125 MG in SODIUM CHLORIDE 0.9% 100 ML IV SCH (04:57)
[2018-08-04] MEDS: MEROPENEM 1 GM in SODIUM CHLORIDE 0.9% 100 ML IVPB SCH ×4 (04:57→23:10)
[2018-08-04 06:20] LABS: Anisocytosis Slight; HCT 25.6 % (39.0-53.0); HGB 8.7 gm/dL (13.0-17.5); MCH 27.6 pg (25.0-35.0); MCHC 34.2 g/dL (31.0-37.0); MCV 80.9 fL (80.0-100.0); Mean Platelet Volume 7.9; Microcytosis Slight; Poikilocytosis Slight; RBC 3.16 m/uL (4.30-5.90); RDW 17.4 % (11.5-15.5); WBC 19.9 k/uL (3.8-10.6)
[2018-08-04] MEDS: PANTOPRAZOLE 40 MG TABLET PO SCH ×2 (06:20→15:52)
[2018-08-04 06:27] LABS: Platelet Count 15 k/uL (150-450)
[2018-08-04 06:41] LABS: ALT 458 U/L (21-72); AST 327 U/L (17-59); Albumin 2.3 g/dL (3.5-5.0); Alkaline Phosphatase 428 U/L (38-126); Anion Gap 5 mmol/L; Blood Urea Nitrogen 17 mg/dL (9-20); Calcium 7.8 mg/dL (8.4-10.2); Carbon Dioxide 20 mmol/L (22-30); Chloride 113 mmol/L (98-107); Glucose 102 mg/dL (74-99); Magnesium 1.8 mg/dL (1.6-2.3); Potassium 3.9 mmol/L (3.5-5.1); Sodium 138 mmol/L (137-145); Total Bilirubin 1.1 mg/dL (0.2-1.3); Total Protein 5.1 g/dL (6.3-8.2)
[2018-08-04 07:35] LABS: Neutrophils % (M) 1 %
[2018-08-04 07:36] LABS: Nucleated Red Blood Cells 0 /100 WBC (0-0); Total Cells Counted 200
[2018-08-04 07:37] LABS: RBC Fragments Present
--- NOTE | 2018-08-04 09:03 | US ---
EXAMINATION TYPE: US liver DATE OF EXAM: 08/04/2018 COMPARISON: 06/29/2018 abdominal ultrasound CLINICAL HISTORY: increased LFTS. abn labs, fever, poor historian Exam was performed portable EXAM MEASUREMENTS: Liver Length: 15.7 cm Gallbladder Wall: 0.5 cm CBD: 0.5 cm CHD: 0.5 cm Right Kidney: 9.7 x 4.6 x 5.0 cm Pancreas: Limited visualization due to overlying bowel gas Liver: wnl Gallbladder: Wall thickening. Echogenic focus with shadow- 1.0 x 0.8 cm. Sludge visualized through out GB. Evidence for sonographic Allen's sign: neg CBD: wnl in size CHD: wnl in size Right Kidney: wnl IMPRESSION: 1. Edematous gallbladder wall and cholelithiasis without common bile duct enlargement suggests chroni c cholecystitis. 2. Although the pancreas is largely obscured by bowel gas there is diffuse heterogeneity that can be further assessed with abdominal CT (ordered for the same date already).
--- NOTE | 2018-08-04 09:11 | P.CONS ---
History of Present Illness - Reason for Consult Consult date: 08/04/18 Fever - History of Present Illness This is a 62-year-old male with significant past history of CLL initially diagnosed in December 2000 followed by diagnosis of diffuse large B- cell lymphoma in 2014 and again in 2016. He suffered from myocardial infarction during course of chemotherapy was stopped. Heart catheterization found complete RCA occlusion with collaterals and tight stenosis in the circumflex that was difficult to stent and not considered a candidate for surgery and was placed on medical management but eventually had successful stenting of the LAD and left circumflex. It was decided in September 2017 not to proceed with chemotherapy. In May of this year, patient presented with shortness of breath and pancytopenia was found to be in acute myeloleukemia and started chemotherapy on June 12 with 7+3 regime, supportive transfusions and prophylactic antibiotics. The patient's course was complicated as he appeared does not have any drug coverage and application to the drug companies have been done by the oncologist office. 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 Patient presented to [facility] emergency center on August 02 with complaints of weakness and intermittent confusion. Patient also states he was running fevers at home. He denies having any shortness of breath or chest pain. He states he has had a cough with possibly some sputum production. Patient presented with fever of 103.3, tachycardia and hypotension. White cell count is at 19.9, hemoglobin 8.7 and platelet count 15 and last at 19.7. Patient has had transfusion of 3 units packed RBCs and 2 units of platelets. The patient's course has been complicated as he developed atrial fibrillation currently on Cardizem drip and followed by cardiology. Stool for occult blood is positive and liver function tests have been elevated. Gastroenterology is also following the patient. He underwent a liver ultrasound this morning and report is pending. A CAT scan of the abdomen pelvis also ordered. Patient has been on vancomycin and meropenem was added by ID. Urine culture has been finalized with no growth and blood culture showing no growth at 72 hours. Review Of Systems: Constitutional: Reports fever, reports chills, no night sweats. Reports weakness, fatigue or lethargy. Reports daytime sleepiness. EENT: No headache. No blurred vision or double vision, no loss of vision. No loss of Hearing, no ringing in the ears, no dizziness. No nasal drainage or congestion. No epistaxis. No sore throat. Lungs: No shortness of breath, reports cough, reports sputum production. No wheezing. Cardiovascular: No chest pain, no lower extremity edema. Reports palpitations. No paroxysmal nocturnal dyspnea. No orthopnea. No lightheadedness or dizziness. No syncopal episodes. Abdominal: No abdominal pain. No nausea, vomiting. No diarrhea. No constipation. No bloody or tarry stools. Reports loss of appetite. Genitourinary: No dysuria, increased frequency, urgency. No urinary retention. Musculoskeletal: No myalgias. Reports muscle weakness, no frequent falls. Integumentary: No wounds, no lesions. No rash or pruritus. No unusual bruising. Neurologic: No aphasia. No facial droop. Reports change in mentation. No head injury. No headache. No paralysis. No paresthesia. Psychiatric: No depression. No anxiety. No mood swings. Endocrine: No abnormal blood sugars. No weight change. No excessive sweating or thirst. No cold intolerance. Past Medical History Past Medical History: Cancer, Myocardial Infarction ([place]), Pneumonia Additional Past Medical History / Comment(s): 2000 diagnosed with CLL treated with chemo successfully, 08/2014 R side back mass-diffuse large B cell lymphoma treated with chemo, 11/2016 recurrent R back mass-diffuse large B cell lymphoma with current chemo, pancytopenia, ITP, anemia, pneumonia with sepsis, 02/20/17 NSTEMI with heart cath-tx medically. Last Myocardial Infarction Date:: 02/20/17 History of Any Multi-Drug Resistant Organisms: None Reported Past Surgical History: Heart Catheterization, Heart Catheterization With Stent Additional Past Surgical History / Comment(s): 02/20/17 cardiac cath, 2001 BMA, R upper back mass-needle bxs, colonoscopy-normal, power port, 2019 BMA. Past Anesthesia/Blood Transfusion Reactions: No Reported Reaction Additional Past Anesthesia/Blood Transfusion Reaction / Comm: Pt has received blood in the past without reaction. 02/20/17 pt had chest pain/SOB (NSTEMI) 1 day post transfusion. Date of Last Stent Placement:: 2017 Past Psychological History: No Psychological Hx Reported Smoking Status: Light tobacco smoker Past Alcohol Use History: None Reported Additional Past Alcohol Use History / Comment(s): Patient has history of smoking 1 pack per day for over 44 years and quit 2 months ago. He denies any marijuana, street drug or alcohol use. He lives at home with his daughter and there is a dog in the home. He denies any recent travel. No service. 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 Past Drug Use History: None Reported - Past Family History Father Additional Family Medical History / Comment(s): Father was an alcoholic. He committed suicide. Mother Family Medical History: Cancer Additional Family Medical History / Comment(s): Mother had Breast Cancer 25 yrs ago. She is 85yrs old. Medications and Allergies Home Medications Medication Instructions Recorded Confirmed Type Vitamin B Complex 1 cap PO DAILY 12/11/16 07/31/18 History Folic Acid 1 mg PO DAILY 02/18/17 07/31/18 History Ascorbic Acid [Vitamin C] 500 mg PO DAILY 06/02/18 07/31/18 History Atorvastatin [Lipitor] 80 mg PO DAILY 06/02/18 07/31/18 History Acyclovir [Zovirax] 400 mg PO BID #42 tab 06/13/18 07/31/18 Rx Allopurinol [Zyloprim] 300 mg PO DAILY #21 tablet 06/13/18 07/31/18 Rx Ferrous Sulfate [Feosol] 325 mg PO DAILY 06/23/18 07/31/18 History Metoprolol Succinate [Toprol XL] 25 mg PO BID 06/23/18 07/31/18 History Acetaminophen Tab [Tylenol Tab] 500 mg PO Q4H PRN 07/19/18 07/31/18 History Ondansetron [Zofran ODT] 4 mg PO Q6HR PRN 07/19/18 07/31/18 History traMADol HCl [Ultram] 50 mg PO Q6HR PRN 07/19/18 07/31/18 History Isosorbide Mononitrate ER [Imdur] 15 mg PO HS 07/31/18 07/31/18 History Allergies Allergy/AdvReac Type Severity Reaction Status Date / Time No Known Allergies Allergy Verified 07/31/18 20:30 Physical Exam Vitals: Vital Signs Temp Pulse Pulse Resp BP BP Pulse Ox 08/04/18 04:00 99 F 98 18 116/60 96 08/03/18 22:40 100 F H 111 H 18 99/59 95 08/03/18 20:00 102.1 F H 122 H 18 99/65 95 08/03/18 17:10 101.3 F H 123 H 20 91/56 96 08/03/18 17:05 125 H 18 92/56 94 L 08/03/18 17:00 128 H 20 93/48 95 08/03/18 16:55 139 H 25 H 104/76 08/03/18 16:50 150 H 25 H 133/95 08/03/18 16:45 150 H 25 H 140/107 90 L 08/03/18 16:00 101.3 F H 96 20 139/76 97 08/03/18 14:34 101.6 F H 91 18 98/60 99 08/03/18 13:00 98.8 F 94 18 97/54 99 08/03/18 12:30 100.0 F H 94 18 107/55 97 08/03/18 12:20 100.7 F H 94 18 102/54 96 08/03/18 12:00 99.3 F 98 18 115/68 95 Intake and Output 08/03/18 08/04/18 08/04/18 22:59 06:59 14:59 Intake Total 250 Balance 250 Intake: Oral 250 Other: Voiding Method Urinal Diaper # Voids 1 Weight 69 kg Gen: This is a thin 62-year-old male. He is resting in bed and sleeping and awakens easily to verbal stimuli. HEENT: Head is atraumatic, normocephalic. Pupils equal, round. Sclerae is anicteric. Oral mucous membranes are sticky with white coating on his tongue. Patient is essentially edentulous with 1 lone tooth on top mid front. NECK: Supple. No JVD. No thyromegaly. LUNGS: Scattered rhonchi and bibasilar rales. Congestive moist cough noted. No intercostal retractions. HEART: Regular rate and rhythm. No murmur. Tachycardic. ABDOMEN: Soft. Bowel sounds are present. No masses. No tenderness. No right upper quadrant tenderness. EXTREMITIES: No pedal edema. No calf tenderness. Dorsalis pedis are +1 bilaterally. NEUROLOGICAL: Patient is awake, alert and oriented x2. Cranial nerves 2 through 12 are grossly intact. Generalized weakness noted. Results Results: Laboratory Results WBC 19.9 k/uL (3.8-10.6) H 08/04/18 05:52 RBC 3.16 m/uL (4.30-5.90) L 08/04/18 05:52 Hgb 8.7 gm/dL (13.0-17.5) L 08/04/18 05:52 Hct 25.6 % (39.0-53.0) L 08/04/18 05:52 MCV 80.9 fL (80.0-100.0) 08/04/18 05:52 MCH 27.6 pg (25.0-35.0) 08/04/18 05:52 MCHC 34.2 g/dL (31.0-37.0) 08/04/18 05:52 RDW 17.4 % (11.5-15.5) H 08/04/18 05:52 Plt Count 15 k/uL (150-450) L* D 08/04/18 05:52 Neutrophils % (Manual) 1 % 08/04/18 05:52 Lymphocytes % (Manual) 1 % 08/04/18 05:52 Monocytes % (Manual) 4 % 08/03/18 05:36 Blast Cells % 99 % H* 08/04/18 05:52 Neutrophils # ICT SALES REPRESENTATIVE 08/03/18 05:36 Neutrophils # (Manual) 0.20 k/uL (1.3-7.7) L* 08/04/18 05:52 Lymphocytes # (Manual) 0.20 k/uL (1.0-4.8) L 08/04/18 05:52 Monocytes # (Manual) 0.48 k/uL (0-1.0) 08/03/18 05:36 Blast Cells # (Man) 19.70 k/uL (0) H 08/04/18 05:52 Nucleated RBCs 0 /100 WBC (0-0) 08/04/18 05:52 Manual Slide Review Performed 08/03/18 05:36 Hypochromasia Moderate 08/01/18 10:42 Poikilocytosis Slight 08/04/18 05:52 Poikilocytosis (manual Present 08/03/18 05:36 Anisocytosis Slight 08/04/18 05:52 Microcytosis Slight 08/04/18 05:52 Fragmented RBCs Present 08/04/18 05:52 PT 13.1 sec (9.0-12.0) H 08/03/18 21:40 INR 1.3 (<1.2) H 08/03/18 21:40 APTT 31.8 sec (22.0-30.0) H 08/03/18 21:40 Sodium 138 mmol/L (137-145) 08/04/18 05:52 Potassium 3.9 mmol/L (3.5-5.1) 08/04/18 05:52 Chloride 113 mmol/L (98-107) H 08/04/18 05:52 Carbon Dioxide 20 mmol/L (22-30) L 08/04/18 05:52 Anion Gap 5 mmol/L 08/04/18 05:52 BUN 17 mg/dL (9-20) 08/04/18 05:52 Creatinine 0.87 mg/dL (0.66-1.25) 08/04/18 05:52 Est GFR (CKD-EPI)AfAm >90 (>60 ml/min/1.73 sqM) 08/04/18 05:52 Est GFR (CKD-EPI)NonAf >90 (>60 ml/min/1.73 sqM) 08/04/18 05:52 Glucose 102 mg/dL (74-99) H 08/04/18 05:52 Lactic Ac Sepsis Rflx Y 07/31/18 21:43 Plasma Lactic Acid Jaylen 1.1 mmol/L (0.7-2.0) 08/03/18 09:35 Uric Acid 2.7 mg/dL (3.5-8.5) L 08/02/18 09:46 Calcium 7.8 mg/dL (8.4-10.2) L 08/04/18 05:52 Phosphorus 1.9 mg/dL (2.5-4.5) L 08/02/18 09:46 Magnesium 1.8 mg/dL (1.6-2.3) 08/04/18 05:52 Total Bilirubin 1.1 mg/dL (0.2-1.3) 08/04/18 05:52 AST 327 U/L (17-59) H 08/04/18 05:52 ALT 458 U/L (21-72) H 08/04/18 05:52 Alkaline Phosphatase 428 U/L (38-126) H 08/04/18 05:52 Lactate Dehydrogenase 1217 U/L (313-618) H 08/02/18 09:46 Troponin I 0.124 ng/mL (0.000-0.034) H* 08/02/18 13:50 NT-Pro-B Natriuret Pep 98258 pg/mL 08/02/18 07:58 Total Protein 5.1 g/dL (6.3-8.2) L 08/04/18 05:52 Albumin 2.3 g/dL (3.5-5.0) L 08/04/18 05:52 Urine Color Yellow 08/01/18 00:10 Urine Appearance Clear (Clear) 08/01/18 00:10 Urine pH 6.0 (5.0-8.0) 08/01/18 00:10 Ur Specific [place] 1.021 (1.001-1.035) 08/01/18 00:10 Urine Protein 1+ (Negative) H 08/01/18 00:10 Urine Glucose (UA) Negative (Negative) 08/01/18 00:10 Urine Ketones Negative (Negative) 08/01/18 00:10 Urine Blood Moderate (Negative) H 08/01/18 00:10 Urine Nitrite Negative (Negative) 08/01/18 00:10 Urine Bilirubin Negative (Negative) 08/01/18 00:10 Urine Urobilinogen 2.0 mg/dL (<2.0) 08/01/18 00:10 Ur Leukocyte Esterase Negative (Negative) 08/01/18 00:10 Urine RBC 1 /hpf (0-5) 08/01/18 00:10 Urine WBC 2 /hpf (0-5) 08/01/18 00:10 Urine Mucus Rare /hpf (None) H 08/01/18 00:10 Stool Occult Blood Positive (Negative) 08/01/18 00:00 Vancomycin Trough 21.2 ug/mL 08/03/18 20:24 Blood Type A Negative 07/31/18 22:11 Blood Type Recheck No 07/31/18 22:11 Antibody Screen NEGATIVE 07/31/18 22:11 Crossmatch See Detail 07/31/18 22:11 Transfuse Platelets 08/03/18 08/03/18 09:35 Spec Expiration Date 08/03/2018231007/31/18 22:11 CBC & Chem 7: 08/04/18 05:52 08/04/18 05:52 Labs: Abnormal Lab Results - Last 24 Hours (Table) 08/03/18 08/04/18 08/04/18 Range/Units 21:40 05:52 05:52 WBC 19.9 H (3.8-10.6) k/uL RBC 3.16 L (4.30-5.90) m/uL Hgb 8.7 L (13.0-17.5) gm/dL Hct 25.6 L (39.0-53.0) % RDW 17.4 H (11.5-15.5) % Plt Count 15 L* D (150-450) k/uL Blast Cells % 99 H* % Neutrophils # (Manual) 0.20 L* (1.3-7.7) k/uL Lymphocytes # (Manual) 0.20 L (1.0-4.8) k/uL Blast Cells # (Man) 19.70 H (0) k/uL PT 13.1 H (9.0-12.0) sec INR 1.3 H (<1.2) APTT 31.8 H (22.0-30.0) sec Chloride 113 H (98-107) mmol/L Carbon Dioxide 20 L (22-30) mmol/L Glucose 102 H (74-99) mg/dL Calcium 7.8 L (8.4-10.2) mg/dL AST 327 H (17-59) U/L ALT 458 H (21-72) U/L Alkaline Phosphatase 428 H (38-126) U/L Total Protein 5.1 L (6.3-8.2) g/dL Albumin 2.3 L (3.5-5.0) g/dL Microbiology - Last 24 Hours (Table) 08/01/18 01:47 Blood Culture - Preliminary Blood No Growth after 72 hours Assessment and Plan Plan: This is a 62-year-old male presented with symptoms of weakness and confusion along with SIRS and febrile illness most likely secondary to AML. The patient has been on vancomycin and meropenem has been added. Continue supportive care. Further recommendations as patient progresses. The above dictated assessment and findings were discussed with Dr. Corrales. The impression and plan of care have been directed as dictated. Kavita Parisi nurse practitioner acting as scribe for Dr. Corrales.
[2018-08-04] MEDS: POTASSIUM CHLORIDE ER 20 MEQ TAB.ER PO SCH ×2 (09:21→21:36)
[2018-08-04] MEDS: ACYCLOVIR 200 MG CAP PO SCH ×2 (09:21→21:36)
[2018-08-04] MEDS: FERROUS SULFATE 325 MG TAB PO SCH (09:22)
[2018-08-04] MEDS: FOLIC ACID 1 MG TAB PO SCH (09:22)
[2018-08-04] MEDS: METOPROLOL SUCCINATE (ER) 25 MG TAB.ER.24H PO SCH ×3 (09:22→21:35)
[2018-08-04] MEDS: LOSARTAN 25 MG TAB PO SCH (10:03)
[2018-08-04] MEDS: VANCOMYCIN 1,250 MG in SODIUM CHLORIDE 0.9% 250 ML IVPB SCH ×2 (10:13→21:36)
--- NOTE | 2018-08-04 10:15 | CT ---
EXAMINATION TYPE: CT abdomen pelvis w con DATE OF EXAM: 08/04/2018 COMPARISON: CT chest abdomen pelvis June 05, 2018. Liver ultrasound earlier today. HISTORY: Increased liver enzymes. CT DLP: 732.1 mGycm, Automated Exposure Control for Dose Reduction was Utilized. CONTRAST: CT scan of the abdomen and pelvis is performed without oral but with IV Contrast, patient injected wi th 100 mL of Isovue 300. FINDINGS: LUNG BASES: There are small bilateral pleural effusions with associated compressive atelectasis. Ther e is new 10 x 7 mm right lower lobe nodule or nodular consolidation axial image 2. Some respiratory m otion artifact degradation is present. LIVER/GB: There is stable calcified dependent 8 mm gallstone. There is new gallbladder wall thickenin g visualized liver is isodense relative to spleen. Liver is normal in size. No suspicious new mass or ductal dilatation is present. PANCREAS: No significant abnormality is seen. SPLEEN: Mild splenomegaly is seen at 13.7 cm on axial image 25 not significantly changed from prior. ADRENALS: No significant abnormality is seen. KIDNEYS: No significant abnormality is seen. BOWEL: Evaluation bowel is suboptimal secondary to lack of enteric contrast. Stomach is poorly disten ded and thus suboptimally evaluated. There is no suspicious small or large bowel dilatation. There ar e diverticula throughout the sigmoid colon. No CT evidence for acute diverticulitis. PROSTATE/SEMINAL VESICLES: No gross abnormality seen. LYMPH NODES: No greater than 1cm abdominal or pelvic lymph nodes are appreciated. OSSEOUS STRUCTURES: There is mild to moderate disc space narrowing with vacuum disc phenomenon L3-L4 through the L5-S1 levels. There is mild to moderate multilevel anterior and lateral spurring in the t horacic spine. There is moderate narrowing and acetabular spurring in both hip joints. There is face t arthropathy in the mid to lower spine. OTHER: Small amount of free fluid in pelvis is noted axial image 79 new from prior. There is moderate calcified plaque of aorta extending into branch vessels with slight ectasia. IMPRESSION: 1. Redemonstration of single gallstone with new gallbladder wall thickening which correlates with ult rasound. Favor product of chronic cholecystitis. Cannot exclude acute cholecystitis. Consider HIDA sc an correlation. The amount of wall thickening is more prominent from recent CT making slightly more s uspicious. No new intrahepatic mass or intrahepatic ductal dilatation. 2. New 10 x 7 mm right lower lobe nodule or nodular density is concerning on background of patient wi th known small pulmonary nodules. 3. New small bilateral pleural effusions. New small amount of abdominal and pelvic ascites. Suspect d esired fluid overload state. Correlate clinically.
[2018-08-04 10:38] LABS: Platelet Count 8 k/uL (150-450)
[2018-08-04] MEDS ORDERED: METOPROLOL TARTRATE 25 MG TAB PO STA (11:30)
[2018-08-04 12:56] LABS: Hepatitis A Antibody IgM Non-Reactive (Non-Reactive); Hepatitis B Core IgM Non-Reactive (Non-Reactive)
--- NOTE | 2018-08-04 13:30 | P.PN ---
Subjective Progress Note Date: 08/04/18 Principal diagnosis: Febrile Neutropenia AML LFTs are mproved from yesterday. Spoke to office today and ventoclax and Vidaza will start Thursday Objective - Vital Signs Vital signs: Vital Signs Temp 99 F 08/04/18 04:00 Pulse 122 H 08/04/18 04:00 Resp 18 08/04/18 04:00 BP 116/60 08/04/18 04:00 Pulse Ox 96 08/04/18 04:00 Intake & Output 08/03/18 08/04/18 08/04/18 18:59 06:59 18:59 Intake Total 1137 10 Balance 1137 10 Weight 69 kg Intake: Intake, IV Titration 350 Amount Ampicillin-Sulbactam 3 gm 100 In Sodium Chloride 0.9% 100 ml @ 200 mls/hr IVPB Q6H [facility] Rx#:[id number] Vancomycin 1,500 mg In 250 Sodium Chloride 0.9% 250 ml @ 125 mls/hr IVPB Q12H [facility] Rx#:[id number] Oral 480 10 Blood Product 307 Platelet Irr Pheresis 2 307 Acda Unit [id number] Other: Voiding Method Urinal Urinal Diaper Diaper # Voids 2 1 - Exam - Constitutional General appearance: no acute distress - EENT Eyes: EOMI, PERRLA ENT: hearing grossly normal, other (scant old blood on lower gums) - Neck Neck: no lymphadenopathy - Respiratory Respiratory: bilateral: CTA - Cardiovascular Rhythm: regular Heart sounds: normal: S1, S2 - Gastrointestinal General gastrointestinal: normal bowel sounds, soft - Integumentary Integumentary: normal - Neurologic Neurologic: CNII-XII intact - Musculoskeletal Musculoskeletal: strength equal bilaterally - Psychiatric Psychiatric: A&O x's 3, appropriate affect - Labs CBC & Chem 7: 08/04/18 05:52 08/04/18 05:52 Labs: Abnormal Lab Results - Last 24 Hours (Table) 08/03/18 08/03/18 08/04/18 Range/Units 05:36 21:40 05:52 WBC 19.9 H (3.8-10.6) k/uL RBC 3.16 L (4.30-5.90) m/uL Hgb 8.7 L (13.0-17.5) gm/dL Hct 25.6 L (39.0-53.0) % RDW 17.4 H (11.5-15.5) % Plt Count 8 L* 15 L* D (150-450) k/uL Blast Cells % 99 H* % Neutrophils # (Manual) 0.20 L* (1.3-7.7) k/uL Lymphocytes # (Manual) 0.20 L (1.0-4.8) k/uL Blast Cells # (Man) 19.70 H (0) k/uL PT 13.1 H (9.0-12.0) sec INR 1.3 H (<1.2) APTT 31.8 H (22.0-30.0) sec Chloride (98-107) mmol/L Carbon Dioxide (22-30) mmol/L Glucose (74-99) mg/dL Calcium (8.4-10.2) mg/dL AST (17-59) U/L ALT (21-72) U/L Alkaline Phosphatase (38-126) U/L Total Protein (6.3-8.2) g/dL Albumin (3.5-5.0) g/dL 08/04/18 Range/Units 05:52 WBC (3.8-10.6) k/uL RBC (4.30-5.90) m/uL Hgb (13.0-17.5) gm/dL Hct (39.0-53.0) % RDW (11.5-15.5) % Plt Count (150-450) k/uL Blast Cells % % Neutrophils # (Manual) (1.3-7.7) k/uL Lymphocytes # (Manual) (1.0-4.8) k/uL Blast Cells # (Man) (0) k/uL PT (9.0-12.0) sec INR (<1.2) APTT (22.0-30.0) sec Chloride 113 H (98-107) mmol/L Carbon Dioxide 20 L (22-30) mmol/L Glucose 102 H (74-99) mg/dL Calcium 7.8 L (8.4-10.2) mg/dL AST 327 H (17-59) U/L ALT 458 H (21-72) U/L Alkaline Phosphatase 428 H (38-126) U/L Total Protein 5.1 L (6.3-8.2) g/dL Albumin 2.3 L (3.5-5.0) g/dL Microbiology - Last 24 Hours (Table) 08/03/18 09:35 Blood Culture - Preliminary Blood No Growth after 24 hours 08/01/18 01:47 Blood Culture - Preliminary Blood No Growth after 72 hours Assessment and Plan Plan: Pancytopenia - Secondary to underlying leukemia, which unfortunetly he has failed initial induction therapy - Blast Count today 86% - This will continue to worsen if his AML does not respond to therapy with re- induction - Daily CBC and Supportive irradiated transfusions at this time - Treatment of active infections and prophylaxis for Viral and fungal - Keep Platlet count greater than 10, and hemoglobin greater than 7 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 - Failed induction chemotherapy - Plan to treat with Salvage regimen of Venetoclax and Vidaza, WILL START THURSDAY - In the interim will continue supportive care Weakness - Progressive weakness and possibly some shortness of breath and confusion was the presenting complaint this time. - This could be due to his cytopenias. In addition to supportive transfusions, infection will need to be ruled out. - If cardiac etiology. Unfortunately, he is not a candidate for any aggressive cardiac intervention, including any type of anticoagulation or antiplatelet therapies due to his severe thrombocytopenia. Therefore his prognosis from the cardiac standpoint is very guarded. Abnormal and increased Liver Enzymes: - Medications versus other - GI Consult Placed - CT abdomen to assess - Review of medications - CMP in am. PLan: - CT and MRI reviewed with some increased picture of fluid overload, diuresis recs per primary - Approval for patients next induction treament with ventoclax and vidaza plan to begin Thursday. Physician Attestation: I have performed the full physical examination and reviewed the full history of this patient, as well as pertinent findings. I have created the compled impression and recommendations. I agree with the above dictation by PANCHITO Ojeda. This dictation has been written as a scribe.
--- NOTE | 2018-08-04 14:20 | P.CONS ---
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 T-max 102.1. Blood culture preliminarily no growth. Consult requested for elevated liver enzymes total bilirubin 0.9. AST 203 increased 925. ALT 221 increase 716. AP 328 increased 439. Presently total bilirubin is 1.1. AST 327. ALT 450. AP 428. Hemoglobin 8.7. White count 19.9. Platelet 15. INR 1.3. Hepatitis screen nonreactive. When reviewing prior medical records patient had intermittent elevation of transaminases in early June prior to that enzymes were within normal limits. No history of known liver disease. No history of hepatitis. No history of IVDA. Reports a history of heavy alcohol consumption in his 20s and 30s for about a decade none since. Denies abdominal pain. Ultrasound liver edematous gallbladder wall and cholelithiasis without CBD dilation. CT abdomen and pelvis no significant pancreatic abnormality seen. Gallstones. Gallbladder wall thickening no suspicious liver mass or ductal dilatation. Review of Systems Constitutional: Admitted with fever. Weakness.. HEENT: Negative for migraines, blurred vision or loss, earaches, drainage, tinnitus, oral mucosal lesions, dysphagia, or odynophagia. Cardiac: Negative for chest pain, arrhythmias, or palpitation. Respiratory: Negative for shortness of breath, hemoptysis, cough, or sputum production. Gastrointestinal: See HPI for pertinent findings. Genitourinary: Negative for hematuria, urgency, frequency, polyuria, dysuria, or penile discharge. Musculoskeletal: Negative for muscle aches, swelling, arthritis, and arthralgias. Neurologic: Negative for stroke or TIA. Endocrine: Negative for thyroid problems. Skin: Negative for rash or itching. Psychiatric: Negative history for depression and anxiety Past Medical History Past Medical History: Cancer, Myocardial Infarction (PR), Pneumonia Additional Past Medical History / Comment(s): 2000 diagnosed with CLL treated with chemo successfully, 08/2014 R side back mass-diffuse large B cell lymphoma treated with chemo, 11/2016 recurrent R back mass-diffuse large B cell lymphoma with current chemo, pancytopenia, ITP, anemia, pneumonia with sepsis, 02/20/17 NSTEMI with heart cath-tx medically. Last Myocardial Infarction Date:: 02/20/17 History of Any Multi-Drug Resistant Organisms: None Reported Past Surgical History: Heart Catheterization, Heart Catheterization With Stent Additional Past Surgical History / Comment(s): 02/20/17 cardiac cath, 2001 [facility], R upper back mass-needle bxs, colonoscopy-normal, power port, 2019 [facility]. Past Anesthesia/Blood Transfusion Reactions: No Reported Reaction Additional Past Anesthesia/Blood Transfusion Reaction / Comm: Pt has received blood in the past without reaction. 02/20/17 pt had chest pain/SOB (NSTEMI) 1 day post transfusion. Date of Last Stent Placement:: 2017 Past Psychological History: No Psychological Hx Reported Smoking Status: Light tobacco smoker Past Alcohol Use History: None Reported Additional Past Alcohol Use History / Comment(s): Patient has history of smoking 1 pack per day for over 44 years and quit 2 months ago. He denies any marijuana, street drug or alcohol use. He lives at home with his daughter and there is a dog in the home. He denies any recent travel. No service. 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 Past Drug Use History: None Reported - Past Family History Father Additional Family Medical History / Comment(s): Father was an alcoholic. He committed suicide. Mother Family Medical History: Cancer Additional Family Medical History / Comment(s): Mother had Breast Cancer 25 yrs ago. She is 85yrs old. Medications and Allergies Home Medications Medication Instructions Recorded Confirmed Type Vitamin B Complex 1 cap PO DAILY 12/11/16 07/31/18 History Folic Acid 1 mg PO DAILY 02/18/17 07/31/18 History Ascorbic Acid [Vitamin C] 500 mg PO DAILY 06/02/18 07/31/18 History Atorvastatin [Lipitor] 80 mg PO DAILY 06/02/18 07/31/18 History Acyclovir [Zovirax] 400 mg PO BID #42 tab 06/13/18 07/31/18 Rx Allopurinol [Zyloprim] 300 mg PO DAILY #21 tablet 06/13/18 07/31/18 Rx Ferrous Sulfate [Feosol] 325 mg PO DAILY 06/23/18 07/31/18 History Metoprolol Succinate [Toprol XL] 25 mg PO BID 06/23/18 07/31/18 History Acetaminophen Tab [Tylenol Tab] 500 mg PO Q4H PRN 07/19/18 07/31/18 History Ondansetron [Zofran ODT] 4 mg PO Q6HR PRN 07/19/18 07/31/18 History traMADol HCl [Ultram] 50 mg PO Q6HR PRN 07/19/18 07/31/18 History Isosorbide Mononitrate ER [Imdur] 15 mg PO HS 07/31/18 07/31/18 History Allergies Allergy/AdvReac Type Severity Reaction Status Date / Time No Known Allergies Allergy Verified 07/31/18 20:30 Physical Exam Vitals: Vital Signs Temp Pulse Pulse Resp BP BP Pulse Ox 08/04/18 04:00 99 F 98 18 116/60 96 08/03/18 22:40 100 F H 111 H 18 99/59 95 08/03/18 20:00 102.1 F H 122 H 18 99/65 95 08/03/18 17:10 101.3 F H 123 H 20 91/56 96 08/03/18 17:05 125 H 18 92/56 94 L 08/03/18 17:00 128 H 20 93/48 95 08/03/18 16:55 139 H 25 H 104/76 08/03/18 16:50 150 H 25 H 133/95 08/03/18 16:45 150 H 25 H 140/107 90 L 08/03/18 16:00 101.3 F H 96 20 139/76 97 08/03/18 14:34 101.6 F H 91 18 98/60 99 Intake and Output 08/03/18 08/04/18 08/04/18 22:59 06:59 14:59 Intake Total 250 Balance 250 Intake: Oral 250 Other: Voiding Method Urinal Diaper # Voids 1 Weight 69 kg General appearance: The patient is alert, oriented, in no acute distress. HET: Head is normocephalic and atraumatic. Pupils are equal and reactive. Oropharynx is clear without lesions. Neck: Supple without lymphadenopathy. Trachea midline. Heart: S1 S2. Regular rate and rhythm. Lungs: No crackles or wheezes are heard. Abdomen: Soft, nontender, nondistended with bowel sounds. No peritoneal signs. No palpable organomegaly or masses. Extremities: Normal skin color and turgor. No cyanosis, rash, ulceration, clubbing, or edema. Radial and pedal pulses are 2/4 bilaterally. Neurological: No focal deficits. Strength and sensation are grossly intact. Results CBC & Chem 7: 08/05/18 05:57 08/05/18 05:57 Labs: Abnormal Lab Results - Last 24 Hours (Table) 08/03/18 08/03/18 08/04/18 Range/Units 05:36 21:40 05:52 WBC 19.9 H (3.8-10.6) k/uL RBC 3.16 L (4.30-5.90) m/uL Hgb 8.7 L (13.0-17.5) gm/dL Hct 25.6 L (39.0-53.0) % RDW 17.4 H (11.5-15.5) % Plt Count 8 L* 15 L* D (150-450) k/uL Blast Cells % 99 H* % Neutrophils # (Manual) 0.20 L* (1.3-7.7) k/uL Lymphocytes # (Manual) 0.20 L (1.0-4.8) k/uL Blast Cells # (Man) 19.70 H (0) k/uL PT 13.1 H (9.0-12.0) sec INR 1.3 H (<1.2) APTT 31.8 H (22.0-30.0) sec Chloride (98-107) mmol/L Carbon Dioxide (22-30) mmol/L Glucose (74-99) mg/dL Calcium (8.4-10.2) mg/dL AST (17-59) U/L ALT (21-72) U/L Alkaline Phosphatase (38-126) U/L Total Protein (6.3-8.2) g/dL Albumin (3.5-5.0) g/dL 08/04/18 Range/Units 05:52 WBC (3.8-10.6) k/uL RBC (4.30-5.90) m/uL Hgb (13.0-17.5) gm/dL Hct (39.0-53.0) % RDW (11.5-15.5) % Plt Count (150-450) k/uL Blast Cells % % Neutrophils # (Manual) (1.3-7.7) k/uL Lymphocytes # (Manual) (1.0-4.8) k/uL Blast Cells # (Man) (0) k/uL PT (9.0-12.0) sec INR (<1.2) APTT (22.0-30.0) sec Chloride 113 H (98-107) mmol/L Carbon Dioxide 20 L (22-30) mmol/L Glucose 102 H (74-99) mg/dL Calcium 7.8 L (8.4-10.2) mg/dL AST 327 H (17-59) U/L ALT 458 H (21-72) U/L Alkaline Phosphatase 428 H (38-126) U/L Total Protein 5.1 L (6.3-8.2) g/dL Albumin 2.3 L (3.5-5.0) g/dL Microbiology - Last 24 Hours (Table) 08/03/18 09:35 Blood Culture - Preliminary Blood No Growth after 24 hours 08/01/18 01:47 Blood Culture - Preliminary Blood No Growth after [address] scan - abdomen: report reviewed (Dr. Hall) US - abdomen: report reviewed (Dr. Hall) Assessment and Plan (1) Elevated liver enzymes Narrative/Plan: 62-year-old gentleman with a complicated oncology history, cardiomyopathy, presents with multiple constitutional complaints weakness fatigue fever pa ncytopenia with asymptomatic elevated transaminases with normal bilirubin. Abdominal imaging reported gallstones without ductal dilatation and gallbladder wall thickening however patient reports no episodes of abdominal pain. Liver enzyme pattern seems to be hepatocellular nature suspect drug-induced liver injury possible component of congestive hepatopathy possible underlying hepatocellular disease from previous chemotherapy treatments. Current Visit: Yes Status: Acute Code(s): R74.8 - ABNORMAL LEVELS OF OTHER S GUICHO ENZYMES SNOMED Code(s): 053320702 (2) Fever Current Visit: Yes Status: Acute Code(s): R50.9 - FEVER, UNSPECIFIED SNOMED Code(s): 011362586 (3) Acute myelogenous leukemia Current Visit: Yes Status: Acute Priority: High Code(s): C92.00 - ACUTE MYELOBLASTIC LEUKEMIA, NOT HAVING ACHIEVED REMISSION SNOMED Code(s): 95957896 (4) Pancytopenia Current Visit: Yes Status: Acute Priority: High Code(s): D61.818 - OTHER PANCYTOPENIA SNOMED Code(s): 879884786 Plan: 1. Transaminases are improving continue with daily monitoring. Avoid hepatotoxic medications. If liver enzymes worsen we'll proceed with MRCP imag ing. Thank you for this kind referral and the opportunity to participate in the care of your patient. This consultation was discussed with Dr. Hall. The impression and plan of care have been directed as dictated.
--- NOTE | 2018-08-04 14:32 | P.PN ---
Subjective Progress Note Date: 08/04/18 This is a pleasant 62-year-old male past medical history significant for lymphoma and leukemia, coronary artery disease, ischemic cardiomyopathy and chronic nicotine dependence. He has followed with Dr. Luciano in the office one time in 2017 after his catheterization. The patient states since that time he went to [facility] and underwent successful stent placement, these records are not available to me at this time. We were initially asked to see him in consultation secondary to mildly elevated troponins on admission. He presented to the hospital with symptoms of generalized weakness, fatigue and shortness of breath. He denies symptoms of chest discomfort, dizziness or palpitations. He underwent cardiac catheterization in 2017 which revealed a total occlusion of the RCA, disease in the ostial circumflex and moderate disease in the LAD. He was declined by CT surgery and maximal medical therapy was recommended. He is currently maintained on atorvastatin 80 mg daily, imdur 15 m gdaily, toprol 25 mg BID. He recently underwent a bone marrow biopsy revealed acute myeloid leuke amarilis. Last evening the patient went into atrial fibrillation with a rapid ventricular response. Has since converted to normal sinus rhythm. Patient and the family were educated regarding anticoagulation however the patient cannot be on anticoagulation at this time. At the time of her evaluation today he is currently receiving platelet transfusion. Blood pressure 98/60 with a heart rate of 90, temperature 101.6. White blood cell count 12.1, hemoglobin 9.2, platelet count 8, sodium 140, potassium 4.3, BUN 20 and creatinine 0.9.. AST 925, ALT 716, alk phos 439. 08/04/2018 Patient seen and examined this morning, he had a run of sustained ventricular tachycardia through the night and this morning is in atrial fibrillation with rapid ventricular response. A discussion was made with the patient and his family regarding comfort care, patient wishes to continue to have everything done. His blood pressure this morning is 104/50, heart rate 120, 97% on room air. White blood cell count 19.9, hemoglobin 8.7, platelet count 15, sodium 138, potassium 3.9, BUN 17 and creatinine 0.8. AST 327 and ALT 458 alk phos 428. We will discontinue the Cardizem drip and increase the dose of beta rafael. Patient is not a candidate for amiodarone because of his abnormal liver functions. Objective - Vital Signs Vital signs: Vital Signs Temp 100.9 F H 08/04/18 11:30 Pulse 115 H 08/04/18 11:30 Resp 18 08/04/18 11:30 BP 104/58 08/04/18 11:30 Pulse Ox 97 08/04/18 11:30 Intake & Output 08/03/18 08/04/18 08/04/18 18:59 06:59 18:59 Intake Total 1137 10 450 Balance 1137 10 450 Weight 69 kg Intake: Intake, IV Titration 350 350 Amount Ampicillin-Sulbactam 3 gm 100 In Sodium Chloride 0.9% 100 ml @ 200 mls/hr IVPB Q6H [facility] Rx#:[id number] Meropenem 1 gm In Sodium 100 Chloride 0.9% 100 ml @ 200 mls/hr IVPB Q8HR [facility] Rx#:[id number] Vancomycin 1,250 mg In 250 Sodium Chloride 0.9% 250 ml @ 125 mls/hr IVPB Q12H [facility] Rx#:[id number] Vancomycin 1,500 mg In 250 Sodium Chloride 0.9% 250 ml @ 125 mls/hr IVPB Q12H [facility] Rx#:[id number] Oral 480 10 100 Blood Product 307 Platelet Irr Pheresis 2 307 Acda Unit [id number] Other: Voiding Method Urinal Urinal Diaper Diaper # Voids 2 1 - Exam GENERAL: This is a 62-year-old male in no apparent distress at the time of my examination. HEENT: Head is atraumatic, normocephalic. Pupils are equal, round. Sclerae anicteric. Conjunctivae are clear. Mucous membranes of the mouth are moist. Neck is supple. There is no jugular venous distention. No carotid bruit is heard. LUNGS: Course scattered rhonchi, bibasilar rales, no wheezes. No chest wall tenderness is noted on palpation or with deep breathing. HEART: Regular rate and rhythm without murmurs, rubs or gallops. S1 and S2 heard. ABDOMEN: Soft, nontender. Bowel sounds are heard. No organomegaly noted. EXTREMITIES: No evidence of peripheral edema and no calf tenderness noted. VASCULAR: Radial and dorsalis pedis pulses palpated, no evidence of clubbing. NEUROLOGIC: Patient is awake, alert and oriented x3. - Labs CBC & Chem 7: 08/04/18 05:52 08/04/18 05:52 Labs: Abnormal Lab Results - Last 24 Hours (Table) 08/03/18 08/03/18 08/04/18 Range/Units 05:36 21:40 05:52 WBC 19.9 H (3.8-10.6) k/uL RBC 3.16 L (4.30-5.90) m/uL Hgb 8.7 L (13.0-17.5) gm/dL Hct 25.6 L (39.0-53.0) % RDW 17.4 H (11.5-15.5) % Plt Count 8 L* 15 L* D (150-450) k/uL Blast Cells % 99 H* % Neutrophils # (Manual) 0.20 L* (1.3-7.7) k/uL Lymphocytes # (Manual) 0.20 L (1.0-4.8) k/uL Blast Cells # (Man) 19.70 H (0) k/uL PT 13.1 H (9.0-12.0) sec INR 1.3 H (<1.2) APTT 31.8 H (22.0-30.0) sec Chloride (98-107) mmol/L Carbon Dioxide (22-30) mmol/L Glucose (74-99) mg/dL Calcium (8.4-10.2) mg/dL AST (17-59) U/L ALT (21-72) U/L Alkaline Phosphatase (38-126) U/L Total Protein (6.3-8.2) g/dL Albumin (3.5-5.0) g/dL 08/04/18 Range/Units 05:52 WBC (3.8-10.6) k/uL RBC (4.30-5.90) m/uL Hgb (13.0-17.5) gm/dL Hct (39.0-53.0) % RDW (11.5-15.5) % Plt Count (150-450) k/uL Blast Cells % % Neutrophils # (Manual) (1.3-7.7) k/uL Lymphocytes # (Manual) (1.0-4.8) k/uL Blast Cells # (Man) (0) k/uL PT (9.0-12.0) sec INR (<1.2) APTT (22.0-30.0) sec Chloride 113 H (98-107) mmol/L Carbon Dioxide 20 L (22-30) mmol/L Glucose 102 H (74-99) mg/dL Calcium 7.8 L (8.4-10.2) mg/dL AST 327 H (17-59) U/L ALT 458 H (21-72) U/L Alkaline Phosphatase 428 H (38-126) U/L Total Protein 5.1 L (6.3-8.2) g/dL Albumin 2.3 L (3.5-5.0) g/dL Microbiology - Last 24 Hours (Table) 08/03/18 09:35 Blood Culture - Preliminary Blood No Growth after 24 hours 08/01/18 01:47 Blood Culture - Preliminary Blood No Growth after 72 hours Assessment and Plan Plan: Assessment and plan #1 Symptomatic anemia #2 Thrombocytopenia #3 Acute myeloid leukemia #4 Mild troponin elevation in the setting of oxygen supply demand mismatch not secondary to an acute coronary event in the absence of symptoms of angina. #5 Severe hypokalemia #6History of coronary artery disease #7 Ischemic cardiomyopathy, EF 35% #8 Chronic nicotine dependence #9 paroxysmal atrial fibrillation #10 sustained ventricular tachycardia Plan We will give the patient some potassium and magnesium today, increase dose of beta rafael, discontinue IV Cardizem drip. DNP note has been reviewed, I agree with a documented findings and plan of care. Patient was seen and examined.
[2018-08-04] MEDS: VANCOMYCIN 1,500 MG in SODIUM CHLORIDE 0.9% 250 ML IVPB SCH (14:52)
[2018-08-04] MEDS: ACETAMINOPHEN TAB 500 MG TAB PO PRN (21:36)
[2018-08-04] MEDS: ISOSORBIDE MONONITRATE ER 30 MG TAB.ER.24H PO SCH (21:36)
--- NOTE | 2018-08-04 22:05 | PN ---
PROGRESS NOTE DATE OF SERVICE: 08/04/2018 This 62-year-old gentleman admitted with severe symptomatic anemia, also had bicytopenia. The patient also had features of acute myelogenous leukemia, CT scan of the abdomen and pelvis was done which showed single gallstones with gallbladder thickening, possibly chronic cholecystitis. The patient is being closely monitored at this time. The patient is on broad-spectrum IV antibiotics. The patient is still funning some fever at this time. The patient is currently on vancomycin. PAST MEDICAL HISTORY: Reviewed. REVIEW OF SYSTEMS: Cardio system: No angina or palpitations. RESPIRATORY: As mentioned earlier. GI: As mentioned earlier. : No dysuria. CENTRAL NERVOUS SYSTEM: No numbness or weakness. CURRENT MEDICATIONS: Reviewed and include: 1. Tylenol 500 mg q.4 p.r.n. 2. Zovirax 400 mg p.o. b.i.d. 3. Xanax 0.5 t.i.d. 4. Iron sulfate 320 mg p.o. daily. 5. Diflucan 200 mg p.o. daily. 6. Folic acid 1 mg. 7. Dilaudid 0.4 mg p.r.n. 8. Imdur 15 mg. 9. Cozaar 25 mg p.o. daily. 10.Meropenem 1 gm IV q.8h. 11.Toprol-XL. 12.Narcan. 13.Zofran. 14.Protonix. 15.Restoril. 16.Ultram. PHYSICAL EXAM: Patient is alert, oriented x1. Pulse 115 and regular. Blood pressure 104/58, respiration 18. Temperature 100.9, pulse ox 97% on room air. HEENT: Conjunctivae normal. NECK is no jugular venous distention. No carotid bruit. No lymph node enlargement. CARDIOVASCULAR: S1, S2. Tachycardic. No S3, no S4. RESPIRATORY: Breath sounds diminished in the bases. Bilateral scattered rhonchi and crackles. ABDOMEN: Soft, nontender. No mass palpable. LEGS: No edema. No swelling. CENTRAL NERVOUS SYSTEM: No focal deficits. LAB STUDIES: WBC 19.9, hemoglobin is 8.7, platelets of 15, AST 327, ALT is 458. Acute hepatitis panel is negative. ASSESSMENT: 1. Severe symptomatic anemia as well as lightheadedness, possibly secondary to acute myelogenous leukemia. 2. Severe thrombocytopenia. 4. fever, possible sepsis. 5. History of pancytopenia. 6. Chronic lymphoid leukemia. 7. Large B-cell lymphoma. 8. History of pneumonia. 9. History of coronary artery disease/stent. 10.History of fever. 11.Remote history of nicotine dependence. 12.Hyponatremia. 13.Hyperkalemia. 14.Increased random blood sugar. Rule out diabetes type 2. 15.Increased plasma lactic acid. 16.Increased AST, ALT, possibly acute hepatitis, multifactorial RECOMMENDATIONS AND DISCUSSION: In this 62-year-old gentleman who presented with multiple complex medical issues, we will monitor the patient closely, continue the current medications, management and symptomatic treatment. The patient is still running a fever. Otherwise, I would recommend repeat cultures. Otherwise, I would recommend continue with broad- spectrum IV antibiotics. Closely follow with multiple consultants. Prognosis guarded. Further recommendations to follow. ISACC / NANCY: [id number] / MTDD
--- NOTE | 2018-08-04 22:12 | P.CON ---
Consult Note - . Consult date: 08/04/18 Assessment/Plan:: This is a 62-year-old male with significant past history of CLL initially diagnosed in December 2000 followed by diagnosis of diffuse large B- cell lymphoma in 2014 and again in 2016. He suffered from myocardial infarction during course of chemotherapy was stopped. Heart catheterization found complete RCA occlusion with collaterals and tight stenosis in the circumflex that was difficult to stent and not considered a candidate for surgery and was placed on medical management but eventually had successful stenting of the LAD and left circumflex. It was decided in September 2017 not to proceed with chemotherapy. In May of this year, patient presented with shortness of breath and pancytopenia was found to be in acute myeloleukemia and started chemotherapy on June 12 with 7+3 regime, supportive transfusions and prophylactic antibiotics. The patient's course was complicated as he appeared does not have any drug coverage and application to the drug companies have been done by the oncologist office. 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 Patient presented to [facility] emergency center on August 02 with complaints of weakness and intermittent confusion. Patient also states he was running fevers at home. He denies having any shortness of breath or chest pain. He states he has had a cough with possibly some sputum production. Patient presented with fever of 103.3, tachycardia and hypotension. White cell count is at 19.9, hemoglobin 8.7 and platelet count 15 and last at 19.7. Patient has had transfusion of 3 units packed RBCs and 2 units of platelets. The patient's course has been complicated as he developed atrial fibrillation currently on Cardizem drip and followed by cardiology. Stool for occult blood is positive and liver function tests have been elevated. Gastroenterology is also following the patient. He underwent a liver ultrasound this morning and report is pending. A CAT scan of the abdomen pelvis also ordered. Patient has been on vancomycin and meropenem was added by ID. Urine culture has been finalized with no growth and blood culture showing no growth at 72 hours. Please see the consult note is dictated by nurse practitioner Kavita Isak. 62-year-old male who has a history of AML who has not done well with his most recent course of chemotherapy. And hopefully we'll [place] new regimen to the near future. Comes in the hospital feeling ill with similar fever and elevation of his liver function tests. He does have evidence of some chronic cholecystitis without evidence of acute cholecystitis. Elevated AST and ALT potentially from current illness, recent medications most likely. However underlying infection of the biliary tract is not excluded at this time. Although his alkaline phosphatase is elevated the total bilirubin is normal. We'll expect the liver function tests will rapidly improve. In his fever improves with no evidence of bacteremia or other significant focus of infection, hopefully becomes a rapid candidate for chemotherapy for the treatment of his AML. Antibiotic therapy while cultures are process was initiated with meropenem and vancomycin given his history and concerns to biliary sepsis. Aortic evaluation, assessment and plan as dictated by nurse practitioner Mrs. Kavita Parisi.
[2018-08-05] MEDS: PANTOPRAZOLE 40 MG TABLET PO SCH ×2 (06:00→16:48)
[2018-08-05 06:31] LABS: Anisocytosis Slight; HCT 26.8 % (39.0-53.0); MCH 27.8 pg (25.0-35.0); MCHC 33.7 g/dL (31.0-37.0); MCV 82.5 fL (80.0-100.0); Mean Platelet Volume 7.5; RBC 3.25 m/uL (4.30-5.90); RDW 17.4 % (11.5-15.5); WBC 20.4 k/uL (3.8-10.6)
[2018-08-05 06:39] LABS: ALT 393 U/L (21-72); AST 317 U/L (17-59); Albumin 2.3 g/dL (3.5-5.0); Alkaline Phosphatase 375 U/L (38-126); Anion Gap 5 mmol/L; Blood Urea Nitrogen 18 mg/dL (9-20); Calcium 7.8 mg/dL (8.4-10.2); Carbon Dioxide 21 mmol/L (22-30); Chloride 112 mmol/L (98-107); Glucose 93 mg/dL (74-99); Potassium 3.5 mmol/L (3.5-5.1); Sodium 138 mmol/L (137-145); Total Bilirubin 0.9 mg/dL (0.2-1.3)
[2018-08-05 06:54] LABS: Nucleated Red Blood Cells 0 /100 WBC (0-0)
[2018-08-05 06:57] LABS: Lymphocytes # (M) 2.45 k/uL (1.0-4.8); Monocytes # (M) 2.04 k/uL (0-1.0); Neutrophils # (M) 0.82 k/uL (1.3-7.7); Neutrophils % (M) 4 %
[2018-08-05 06:58] LABS: Total Cells Counted 100
[2018-08-05 07:01] LABS: Platelet Count 9 k/uL (150-450)
[2018-08-05] MEDS: traMADol 50 MG TAB PO PRN ×2 (07:52→23:16)
[2018-08-05] MEDS: MEROPENEM 1 GM in SODIUM CHLORIDE 0.9% 100 ML IVPB SCH ×3 (07:53→23:16)
[2018-08-05] MEDS ORDERED: Potassium Replacement Protocol 1 EACH MISC MISCELLANE PRN (08:09)
[2018-08-05] MEDS: ACYCLOVIR 200 MG CAP PO SCH ×2 (08:58→20:55)
[2018-08-05] MEDS: LOSARTAN 25 MG TAB PO SCH (08:59)
[2018-08-05] MEDS: FOLIC ACID 1 MG TAB PO SCH (08:59)
[2018-08-05] MEDS: POTASSIUM CHLORIDE ER 20 MEQ TAB.ER PO SCH ×4 (08:59→20:55)
[2018-08-05] MEDS: ALLOPURINOL 300 MG TAB PO SCH (09:00)
[2018-08-05] MEDS: FERROUS SULFATE 325 MG TAB PO SCH (09:00)
[2018-08-05] MEDS: ASCORBIC ACID 500 MG TAB PO SCH (09:00)
[2018-08-05] MEDS: METOPROLOL SUCCINATE (ER) 25 MG TAB.ER.24H PO SCH ×3 (09:00→20:55)
[2018-08-05] MEDS ORDERED: ATORVASTATIN 80 MG TAB PO SCH (09:00)
[2018-08-05] MEDS: VANCOMYCIN 1,250 MG in SODIUM CHLORIDE 0.9% 250 ML IVPB SCH ×2 (09:07→20:55)
--- NOTE | 2018-08-05 10:16 | P.PN ---
Subjective Progress Note Date: 08/05/18 Principal diagnosis: Transaminitis Liver enzymes slightly improved today. No abdominal complaints. Chemotherapy scheduled for tomorrow. White count 20.4. Hemoglobin 9.0. Platelet 9000. Total bilirubin 0.9. AST 317. ALT 393. AP 375. Objective - Vital Signs Vital signs: Vital Signs Temp 98.5 F 08/05/18 04:00 Pulse 91 08/05/18 04:00 Resp 16 08/05/18 04:00 BP 101/59 08/05/18 04:00 Pulse Ox 100 08/05/18 04:00 Intake & Output 08/04/18 08/05/18 08/05/18 18:59 06:59 18:59 Intake Total 670 Output Total 500 Balance 670 -500 Weight 58.5 kg Intake: Intake, IV Titration 350 Amount Meropenem 1 gm In Sodium 100 Chloride 0.9% 100 ml @ 200 mls/hr IVPB Q8HR [facility] Rx#:[id number] Vancomycin 1,250 mg In 250 Sodium Chloride 0.9% 250 ml @ 125 mls/hr IVPB Q12H [facility] Rx#:[id number] Oral 320 Output: Urine 500 Other: Voiding Method Urinal Incontinent # Voids 1 - Exam General appearance: The patient is alert, oriented, in no acute distress. Thin appearance. HET: Head is normocephalic and atraumatic. Pupils are equal and reactive. Oropharynx is clear without lesions. Neck: Supple without lymphadenopathy. Trachea midline. Heart: S1 S2. Regular rate and rhythm. Lungs: No crackles or wheezes are heard. Abdomen: Soft, nontender, nondistended with bowel sounds. No peritoneal signs. No palpable organomegaly or masses. Extremities: Normal skin color and turgor. No cyanosis, rash, ulceration, clubbing, or edema. Radial and pedal pulses are 2/4 bilaterally. Neurological: No focal deficits. Strength and sensation are grossly intact. - Labs CBC & Chem 7: 08/05/18 05:57 08/05/18 05:57 Labs: Abnormal Lab Results - Last 24 Hours (Table) 08/03/18 08/05/18 08/05/18 Range/Units 05:36 05:57 05:57 WBC 20.4 H (3.8-10.6) k/uL RBC 3.25 L (4.30-5.90) m/uL Hgb 9.0 L (13.0-17.5) gm/dL Hct 26.8 L (39.0-53.0) % RDW 17.4 H (11.5-15.5) % Plt Count 8 L* 9 L* (150-450) k/uL Blast Cells % 74 H* % Neutrophils # (Manual) 0.82 L (1.3-7.7) k/uL Monocytes # (Manual) 2.04 H (0-1.0) k/uL Blast Cells # (Man) 15.10 H (0) k/uL Chloride 112 H (98-107) mmol/L Carbon Dioxide 21 L (22-30) mmol/L Calcium 7.8 L (8.4-10.2) mg/dL AST 317 H (17-59) U/L ALT 393 H (21-72) U/L Alkaline Phosphatase 375 H (38-126) U/L Total Protein 5.0 L (6.3-8.2) g/dL Albumin 2.3 L (3.5-5.0) g/dL Microbiology - Last 24 Hours (Table) 08/04/18 05:52 Blood Culture - Preliminary Blood No Growth after 24 hours 08/01/18 01:47 Blood Culture - Preliminary Blood No Growth after 96 hours 08/03/18 09:35 Blood Culture - Preliminary Blood No Growth after 24 hours Assessment and Plan (1) Elevated liver enzymes Narrative/Plan: 62-year-old gentleman with a complicated oncology history, cardiomyopathy, presents with multiple constitutional complaints weakness fatigue fever pancytopenia with asymptomatic elevated transaminases with normal bilirubin. Abdominal imaging reported gallstones without ductal dilatation and gallbladder wall thickening however patient reports no episodes of abdominal pain. Liver enzyme pattern seems to be hepatocellular nature suspect drug-induced liver injury possible component of congestive hepatopathy possible underlying hepatocellular disease from previous chemotherapy treatments. Current Visit: Yes Status: Acute Code(s): R74.8 - ABNORMAL LEVELS OF OTHER SERUM ENZYMES SNOMED Code(s): 354341555 (2) Fever Current Visit: Yes Status: Acute Code(s): R50.9 - FEVER, UNSPECIFIED SNOMED Code(s): 400516635 (3) Acute myelogenous leukemia Current Visit: Yes Status: Acute Priority: High Code(s): C92.00 - ACUTE MYELOBLASTIC LEUKEMIA, NOT HAVING ACHIEVED REMISSION SNOMED Code(s): 94678235 (4) Pancytopenia Current Visit: Yes Status: Acute Priority: High Code(s): D61.818 - OTHER PANCYTOPENIA SNOMED Code(s): 792769946 Plan: 1. Transaminases are improving continue with daily monitoring. Avoid hepatotoxic medications. Case discussed with oncologist Dr. Andrade no further workup from a GI standpoint at this time, unless liver function tests worsen. Chemotherapy to start tomorrow. Assessment and plan a care discussed with Dr. Hall
--- NOTE | 2018-08-05 11:09 | P.PN ---
Subjective 62-year-old pleasant gentleman was admitted with severe symptomatic anemia. Patient has acute myelogenous leukemia. Patient has a continuous fevers these were believed to be significant acute myelogenous leukemia. Patient although is on broad-spectrum antibiotics including the meropenem, flucanazole.patient does have leukocytosis which is actually bit worse today no diarrhea at this time infectious disease is following the patient patient has multiple consultants that are following the patient patient had sustained VT which was believed to be secondary to hypomagnesemia patient apparently has torsades. Magnesium is being supplemented patient had EF of around 35% patient is euvolemic at this time. Patient's IV fluids were discontinued. Patient has severe mucositis. Patient has elevated liver enzymes which were second believed secondary to cholelithiasis and probable chronic cholecystitis and fevers are probably not because of this.plan is for chemotherapy as his fevers and leukocytosis was believed secondary to acute myelogenous leukemia and patient has monocyte predominance.patient doesn't look well looks really sick with the real bad mucositis. Constitutional: Denied any fatigue denied any fever. Cardio vascular: denied any chest pain, palpitations Gastrointestinal denied any nausea vomiting Pulmonary: Denied any shortness of breath cough Neurologic denied any new focal deficits All inpatient medications were reviewed and appropriate changes in these medications as dictated in the interval history and assessment and plan. Objective - Vital Signs Vital signs: Vital Signs Temp 98.5 F 08/05/18 04:00 Pulse 91 08/05/18 04:00 Resp 16 08/05/18 04:00 BP 101/59 08/05/18 04:00 Pulse Ox 100 08/05/18 04:00 Intake & Output 08/04/18 08/05/18 08/05/18 18:59 06:59 18:59 Intake Total 670 0 Output Total 500 Balance 670 -500 0 Weight 58.5 kg Intake: Intake, IV Titration 350 Amount Meropenem 1 gm In Sodium 100 Chloride 0.9% 100 ml @ 200 mls/hr IVPB Q8HR [facility] Rx#:[id number] Vancomycin 1,250 mg In 250 Sodium Chloride 0.9% 250 ml @ 125 mls/hr IVPB Q12H [facility] Rx#:[id number] Oral 320 0 Output: Urine 500 Other: Voiding Method Urinal Incontinent # Voids 1 - Exam PHYSICAL EXAMINATION: GENERAL: The patient is alert and oriented x3, not in any acute distress. Well developed, well nourished. looks unwell HEENT: Pupils are round and equally reacting to light. EOMI. No scleral icterus. No conjunctival pallor. Normocephalic, atraumatic. No pharyngeal erythema. No t hyromegaly. she does have mucositis and that oral cavity. CARDIOVASCULAR: S1 and S2 present. No murmurs, rubs, or gallops. PULMONARY: Chest is clear to auscultation, no wheezing or crackles. ABDOMEN: Soft, nontender, nondistended, normoactive bowel sounds. No palpable organomegaly. MUSCULOSKELETAL: No joint swelling or deformity. EXTREMITIES: No cyanosis, clubbing, or pedal edema. NEUROLOGICAL: Gross neurological examination did not reveal any focal deficits. SKIN: No rashes. - Labs CBC & Chem 7: 08/05/18 05:57 08/05/18 05:57 Labs: Abnormal Lab Results - Last 24 Hours (Table) 08/05/18 08/05/18 Range/Units 05:57 05:57 WBC 20.4 H (3.8-10.6) k/uL RBC 3.25 L (4.30-5.90) m/uL Hgb 9.0 L (13.0-17.5) gm/dL Hct 26.8 L (39.0-53.0) % RDW 17.4 H (11.5-15.5) % Plt Count 9 L* (150-450) k/uL Blast Cells % 74 H* % Neutrophils # (Manual) 0.82 L (1.3-7.7) k/uL Monocytes # (Manual) 2.04 H (0-1.0) k/uL Blast Cells # (Man) 15.10 H (0) k/uL Chloride 112 H (98-107) mmol/L Carbon Dioxide 21 L (22-30) mmol/L Calcium 7.8 L (8.4-10.2) mg/dL AST 317 H (17-59) U/L ALT 393 H (21-72) U/L Alkaline Phosphatase 375 H (38-126) U/L Total Protein 5.0 L (6.3-8.2) g/dL Albumin 2.3 L (3.5-5.0) g/dL Microbiology - Last 24 Hours (Table) 08/04/18 05:52 Blood Culture - Preliminary Blood No Growth after 24 hours 08/01/18 01:47 Blood Culture - Preliminary Blood No Growth after 96 hours 08/03/18 09:35 Blood Culture - Preliminary Blood No Growth after 24 hours Assessment and Plan Plan: -acute myelogenous leukemia leading to fevers patient will undergo chemotherapy patient has bicytopenia secondary to that. Patient has severe thrombocytopenia for which patient received the platelet transfusion no evidence of GI bleed at this time or any other bleed at this time the with -Fever secondary to AML. Patient has cholelithiasis and chronic cholecystitis on broad-spectrum antibiotics although this is not believed to be causing fever. -Chronic cholelithiasis with elevated liver enzymes -Elevated liver enzymes secondary to cholelithiasis and possible chronic cholecystitis -Congestive heart failure chronic systolic dysfunction. Of around 35% patient is euvolemic -Sustained VT and possible torsades believed to be secondary to hypomagnesemia which is being supplemented. patient's prognosis is poor
[2018-08-05] MEDS: MAG HYDROX/AL HYDROX/SIMETH 30 ML, LIDOCAINE VISCOUS 30 ML, diphenhydrAMINE ELIXIR 75 M... PO SCH ×12 (12:01→20:57)
[2018-08-05] MEDS: ACETAMINOPHEN TAB 500 MG TAB PO PRN ×2 (13:23→22:36)
--- NOTE | 2018-08-05 15:15 | P.PN ---
Subjective Progress Note Date: 08/05/18 This is a pleasant 62-year-old male past medical history significant for lymphoma and leukemia, coronary artery disease, ischemic cardiomyopathy and chronic nicotine dependence. He has followed with Dr. Luciano in the office one time in 2017 after his catheterization. The patient states since that time he went to [place] and underwent successful stent placement, these records are not available to me at this time. We were initially asked to see him in consultation secondary to mildly elevated troponins on admission. He presented to the hospital with symptoms of generalized weakness, fatigue and shortness of breath. He denies symptoms of chest discomfort, dizziness or palpitations. He underwent cardiac catheterization in 2017 which revealed a total occlusion of the RCA, disease in the ostial circumflex and moderate disease in the LAD. He was declined by CT surgery and maximal medical therapy was recommended. He is currently maintained on atorvastatin 80 mg daily, imdur 15 m gdaily, toprol 25 mg BID. He recently underwent a bone marrow biopsy revealed acute myeloid leuke amarilis. Last evening the patient went into atrial fibrillation with a rapid ventricular response. Has since converted to normal sinus rhythm. Patient and the family were educated regarding anticoagulation however the patient cannot be on anticoagulation at this time. At the time of her evaluation today he is currently receiving platelet transfusion. Blood pressure 98/60 with a heart rate of 90, temperature 101.6. White blood cell count 12.1, hemoglobin 9.2, platelet count 8, sodium 140, potassium 4.3, BUN 20 and creatinine 0.9.. AST 925, ALT 716, alk phos 439. 08/04/2018 Patient seen and examined this morning, he had a run of sustained ventricular tachycardia through the night and this morning is in atrial fibrillation with rapid ventricular response. A discussion was made with the patient and his family regarding comfort care, patient wishes to continue to have everything done. His blood pressure this morning is 104/50, heart rate 120, 97% on room air. White blood cell count 19.9, hemoglobin 8.7, platelet count 15, sodium 138, potassium 3.9, BUN 17 and creatinine 0.8. AST 327 and ALT 458 alk phos 428. We will discontinue the Cardizem drip and increase the dose of beta rafael. Patient is not a candidate for amiodarone because of his abnormal liver functions. 08/05/2018 Patient seen and examined this morning, overall doing well. No further arrhythmias have been noted through the night. States that he is to start chemotherapy from tomorrow. Breathing is improving as compared to yesterday. White blood cell count 20.4, hemoglobin 9.0, platelet count 9. Sodium 138, potassium 3.5, BUN 18 and creatinine 0.9. AST 317, ALT 393, alk phos 375. Objective - Vital Signs Vital signs: Vital Signs Temp 100.1 F H 08/05/18 13:56 Pulse 111 H 08/05/18 13:56 Resp 18 08/05/18 13:56 BP 93/52 08/05/18 13:56 Pulse Ox 93 L 08/05/18 13:16 Intake & Output 08/04/18 08/05/18 08/05/18 18:59 06:59 18:59 Intake Total 670 0 Output Total 500 125 Balance 670 -500 -125 Weight 58.5 kg 58.5 kg Intake: Intake, IV Titration 350 Amount Meropenem 1 gm In Sodium 100 Chloride 0.9% 100 ml @ 200 mls/hr IVPB Q8HR [facility] Rx#:[id number] Vancomycin 1,250 mg In 250 Sodium Chloride 0.9% 250 ml @ 125 mls/hr IVPB Q12H [facility] Rx#:[id number] Oral 320 0 Blood Product 0 Platelet Irr Pheresis 0 Acda1 Unit [id number] Output: Urine 500 125 Other: Voiding Method Urinal Urinal Incontinent Incontinent # Voids 1 1 - Exam GENERAL: This is a 62-year-old male in no apparent distress at the time of my examination. HEENT: Head is atraumatic, normocephalic. Pupils are equal, round. Sclerae anicteric. Conjunctivae are clear. Mucous membranes of the mouth are moist. Neck is supple. There is no jugular venous distention. No carotid bruit is heard. LUNGS: Course scattered rhonchi, bibasilar rales, no wheezes. No chest wall tenderness is noted on palpation or with deep breathing. HEART: Regular rate and rhythm without murmurs, rubs or gallops. S1 and S2 heard. ABDOMEN: Soft, nontender. Bowel sounds are heard. No organomegaly noted. EXTREMITIES: No evidence of peripheral edema and no calf tenderness noted. VASCULAR: Radial and dorsalis pedis pulses palpated, no evidence of clubbing. NEUROLOGIC: Patient is awake, alert and oriented x3. - Labs CBC & Chem 7: 08/05/18 05:57 08/05/18 05:57 Labs: Abnormal Lab Results - Last 24 Hours (Table) 08/05/18 08/05/18 Range/Units 05:57 05:57 WBC 20.4 H (3.8-10.6) k/uL RBC 3.25 L (4.30-5.90) m/uL Hgb 9.0 L (13.0-17.5) gm/dL Hct 26.8 L (39.0-53.0) % RDW 17.4 H (11.5-15.5) % Plt Count 9 L* (150-450) k/uL Blast Cells % 74 H* % Neutrophils # (Manual) 0.82 L (1.3-7.7) k/uL Monocytes # (Manual) 2.04 H (0-1.0) k/uL Blast Cells # (Man) 15.10 H (0) k/uL Chloride 112 H (98-107) mmol/L Carbon Dioxide 21 L (22-30) mmol/L Calcium 7.8 L (8.4-10.2) mg/dL AST 317 H (17-59) U/L ALT 393 H (21-72) U/L Alkaline Phosphatase 375 H (38-126) U/L Total Protein 5.0 L (6.3-8.2) g/dL Albumin 2.3 L (3.5-5.0) g/dL Microbiology - Last 24 Hours (Table) 08/03/18 09:35 Blood Culture - Preliminary Blood No Growth after 48 hours 08/04/18 05:52 Blood Culture - Preliminary Blood No Growth after 24 hours 08/01/18 01:47 Blood Culture - Preliminary Blood No Growth after 96 hours Assessment and Plan Plan: Assessment and plan #1 Symptomatic anemia #2 Thrombocytopenia #3 Acute myeloid leukemia #4 Mild troponin elevation in the setting of oxygen supply demand mismatch not secondary to an acute coronary event in the absence of symptoms of angina. #5 Severe hypokalemia #6History of coronary artery disease #7 Ischemic cardiomyopathy, EF 35% #8 Chronic nicotine dependence #9 paroxysmal atrial fibrillation #10 sustained ventricular tachycardia Plan From cardiology's perspective, we'll continue current medications. DNP note has been reviewed, I agree with a documented findings and plan of care. Patient was seen and examined.
--- NOTE | 2018-08-05 15:55 | P.PN ---
Subjective Progress Note Date: 08/05/18 Principal diagnosis: Febrile Neutropenia AML LFTs continue to improve, discussed with GI. Platelet transfusion today ventoclax and Vidaza will start Thursday Objective - Vital Signs Vital signs: Vital Signs Temp 99.7 F H 08/05/18 15:44 Pulse 95 08/05/18 15:44 Resp 16 08/05/18 15:44 BP 98/48 08/05/18 15:44 Pulse Ox 94 L 08/05/18 15:44 Intake & Output 08/04/18 08/05/18 08/05/18 18:59 06:59 18:59 Intake Total 670 316 Output Total 500 125 Balance 670 -500 191 Weight 58.5 kg 58.5 kg Intake: Intake, IV Titration 350 Amount Meropenem 1 gm In Sodium 100 Chloride 0.9% 100 ml @ 200 mls/hr IVPB Q8HR [facility] Rx#:[id number] Vancomycin 1,250 mg In 250 Sodium Chloride 0.9% 250 ml @ 125 mls/hr IVPB Q12H [facility] Rx#:[id number] Oral 320 0 Blood Product 316 Platelet Irr Pheresis 316 Acda1 Unit [id number] Output: Urine 500 125 Other: Voiding Method Urinal Urinal Incontinent Incontinent # Voids 1 1 - Exam - Constitutional General appearance: no acute distress - EENT Eyes: EOMI, PERRLA ENT: hearing grossly normal, other (scant old blood on lower gums) - Neck Neck: no lymphadenopathy - Respiratory Respiratory: bilateral: CTA - Cardiovascular Rhythm: regular Heart sounds: normal: S1, S2 - Gastrointestinal General gastrointestinal: normal bowel sounds, soft - Integumentary Integumentary: normal - Neurologic Neurologic: CNII-XII intact - Musculoskeletal Musculoskeletal: strength equal bilaterally - Psychiatric Psychiatric: A&O x's 3, appropriate affect - Labs CBC & Chem 7: 08/05/18 05:57 08/05/18 05:57 Labs: Abnormal Lab Results - Last 24 Hours (Table) 08/05/18 08/05/18 Range/Units 05:57 05:57 WBC 20.4 H (3.8-10.6) k/uL RBC 3.25 L (4.30-5.90) m/uL Hgb 9.0 L (13.0-17.5) gm/dL Hct 26.8 L (39.0-53.0) % RDW 17.4 H (11.5-15.5) % Plt Count 9 L* (150-450) k/uL Blast Cells % 74 H* % Neutrophils # (Manual) 0.82 L (1.3-7.7) k/uL Monocytes # (Manual) 2.04 H (0-1.0) k/uL Blast Cells # (Man) 15.10 H (0) k/uL Chloride 112 H (98-107) mmol/L Carbon Dioxide 21 L (22-30) mmol/L Calcium 7.8 L (8.4-10.2) mg/dL AST 317 H (17-59) U/L ALT 393 H (21-72) U/L Alkaline Phosphatase 375 H (38-126) U/L Total Protein 5.0 L (6.3-8.2) g/dL Albumin 2.3 L (3.5-5.0) g/dL Microbiology - Last 24 Hours (Table) 08/03/18 09:35 Blood Culture - Preliminary Blood No Growth after 48 hours 08/04/18 05:52 Blood Culture - Preliminary Blood No Growth after 24 hours 08/01/18 01:47 Blood Culture - Preliminary Blood No Growth after 96 hours Assessment and Plan Plan: Pancytopenia - Secondary to underlying leukemia, which unfortunetly he has failed initial induction therapy - Blast Count today 86% - This will continue to worsen if his AML does not respond to therapy with re- induction - Daily CBC and Supportive irradiated transfusions at this time - Treatment of active infections and prophylaxis for Viral and fungal - Keep Platlet count greater than 10, and hemoglobin greater than 7 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 - Failed induction chemotherapy - Plan to treat with Salvage regimen of Venetoclax and Vidaza, WILL START THURSDAY - In the interim will continue supportive care Weakness - Progressive weakness and possibly some shortness of breath and confusion was the presenting complaint this time. - This could be due to his cytopenias. In addition to supportive transfusions, infection will need to be ruled out. - If cardiac etiology. Unfortunately, he is not a candidate for any aggressive cardiac intervention, including any type of anticoagulation or antiplatelet therapies due to his severe thrombocytopenia. Therefore his prognosis from the cardiac standpoint is very guarded. Abnormal and increased Liver Enzymes: - Medications versus other - GI Consult Placed - CT abdomen to assess - Review of medications - CMP in am. PLan: - CT and MRI reviewed with some increased picture of fluid overload, diuresis recs per primary - Approval for patients next induction treament with ventoclax and vidaza plan to begin Thursday. - CBC and CMP Daily - Transfuse one unit Platlets today
[2018-08-05] MEDS: ISOSORBIDE MONONITRATE ER 30 MG TAB.ER.24H PO SCH (20:55)
--- NOTE | 2018-08-05 23:28 | P.PN ---
Subjective Progress Note Date: 08/05/18 This is a 62-year-old male with significant past history of CLL initially diagnosed in December 2000 followed by diagnosis of diffuse large B- cell lymphoma in 2014 and again in 2016. He suffered from myocardial infarction during course of chemotherapy was stopped. Heart catheterization found complete RCA occlusion with collaterals and tight stenosis in the circumflex that was difficult to stent and not considered a candidate for surgery and was placed on medical management but eventually had successful stenting of the LAD and left circumflex. It was decided in September 2017 not to proceed with chemotherapy. In May of this year, patient presented with shortness of breath and pancytopenia was found to be in acute myeloleukemia and started chemotherapy on June 12 with 7+3 regime, supportive transfusions and prophylactic antibiotics. The patient's course was complicated as he appeared does not have any drug coverage and application to the drug companies have been done by the oncologist office. 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 Patient presented to [facility] emergency center on August 02 with complaints of weakness and intermittent confusion. Patient also states he was running fevers at home. He denies having any shortness of breath or chest pain. He states he has had a cough with possibly some sputum production. Patient presented with fever of 103.3, tachycardia and hypotension. White cell count is at 19.9, hemoglobin 8.7 and platelet count 15 and last at 19.7. Patient has had transfusion of 3 units packed RBCs and 2 units of platelets. The patient's course has been complicated as he developed atrial fibrillation currently on Cardizem drip and followed by cardiology. Stool for occult blood is positive and liver function tests have been elevated. Gastroenterology is also following the patient. He underwent a liver ultrasound this morning and report is pending. A CAT scan of the abdomen pelvis also ordered. Patient has been on vancomycin and meropenem was added by ID. Urine culture has been finalized with no growth and blood culture showing no growth at 72 hours. 08/05/2018 patient is definitely feeling better today. His fever has resolved. Some difficulty with swallowing is uncomfortable. But otherwise has no other acute complaints. Objective - Vital Signs Vital signs: Vital Signs Temp 103.1 F H 08/05/18 23:00 Pulse 117 H 08/05/18 23:00 Resp 18 08/05/18 23:00 BP 118/57 08/05/18 23:00 Pulse Ox 91 L 08/05/18 22:25 Intake & Output 08/05/18 08/05/18 08/06/18 06:59 18:59 06:59 Intake Total 556 302 Output Total 500 125 Balance -500 431 302 Weight 58.5 kg 58.5 kg Intake: Oral 240 Blood Product 316 302 Platelet Irr Pheresis 2 302 Acda Unit [id number] Platelet Irr Pheresis 316 Acda1 Unit [id number] Output: Urine 500 125 Other: Voiding Method Urinal Urinal Incontinent Incontinent # Voids 1 1 1 - Exam Gen: This is a thin 62-year-old male. He is resting in bed and sleeping and awakens easily to verbal stimuli. HEENT: Head is atraumatic, normocephalic. Pupils equal, round. Sclerae is anicteric. Oral mucous membranes are dry but without thrush but oral cavity remains uncomfortable. Patient is essentially edentulous with 1 lone tooth on top mid front. NECK: Supple. No JVD. No thyromegaly. LUNGS: Scattered rhonchi and bibasilar rales. Congestive moist cough noted. No intercostal retractions. HEART: Regular rate and rhythm. No murmur. Tachycardic. ABDOMEN: Soft. Bowel sounds are present. No masses. No tenderness. No right upper quadrant tenderness. EXTREMITIES: No pedal edema. No calf tenderness. Dorsalis pedis are +1 bilaterally. NEUROLOGICAL: Patient is awake, alert and oriented x2 - Labs CBC & Chem 7: 08/05/18 05:57 08/05/18 05:57 Labs: Abnormal Lab Results - Last 24 Hours (Table) 08/05/18 08/05/18 Range/Units 05:57 05:57 WBC 20.4 H (3.8-10.6) k/uL RBC 3.25 L (4.30-5.90) m/uL Hgb 9.0 L (13.0-17.5) gm/dL Hct 26.8 L (39.0-53.0) % RDW 17.4 H (11.5-15.5) % Plt Count 9 L* (150-450) k/uL Blast Cells % 74 H* % Neutrophils # (Manual) 0.82 L (1.3-7.7) k/uL Monocytes # (Manual) 2.04 H (0-1.0) k/uL Blast Cells # (Man) 15.10 H (0) k/uL Chloride 112 H (98-107) mmol/L Carbon Dioxide 21 L (22-30) mmol/L Calcium 7.8 L (8.4-10.2) mg/dL AST 317 H (17-59) U/L ALT 393 H (21-72) U/L Alkaline Phosphatase 375 H (38-126) U/L Total Protein 5.0 L (6.3-8.2) g/dL Albumin 2.3 L (3.5-5.0) g/dL Microbiology - Last 24 Hours (Table) 08/03/18 09:35 Blood Culture - Preliminary Blood No Growth after 48 hours 08/04/18 05:52 Blood Culture - Preliminary Blood No Growth after 24 hours 08/01/18 01:47 Blood Culture - Preliminary Blood No Growth after 96 hours Laboratory Results WBC 20.4 k/uL (3.8-10.6) H 08/05/18 05:57 RBC 3.25 m/uL (4.30-5.90) L 08/05/18 05:57 Hgb 9.0 gm/dL (13.0-17.5) L 08/05/18 05:57 Hct 26.8 % (39.0-53.0) L 08/05/18 05:57 MCV 82.5 fL (80.0-100.0) 08/05/18 05:57 MCH 27.8 pg (25.0-35.0) 08/05/18 05:57 MCHC 33.7 g/dL (31.0-37.0) 08/05/18 05:57 RDW 17.4 % (11.5-15.5) H 08/05/18 05:57 Plt Count 9 k/uL (150-450) L* 08/05/18 05:57 Neutrophils % (Manual) 4 % 08/05/18 05:57 Lymphocytes % (Manual) 12 % 08/05/18 05:57 Monocytes % (Manual) 10 % 08/05/18 05:57 Blast Cells % 74 % H* 08/05/18 05:57 Neutrophils # 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 08/03/18 05:36 Neutrophils # (Manual) 0.82 k/uL (1.3-7.7) L 08/05/18 05:57 Lymphocytes # (Manual) 2.45 k/uL (1.0-4.8) 08/05/18 05:57 Monocytes # (Manual) 2.04 k/uL (0-1.0) H 08/05/18 05:57 Blast Cells # (Man) 15.10 k/uL (0) H 08/05/18 05:57 Nucleated RBCs 0 /100 WBC (0-0) 08/05/18 05:57 Manual Slide Review Performed 08/05/18 05:57 Hypochromasia Moderate 08/01/18 10:42 Poikilocytosis Slight 08/04/18 05:52 Poikilocytosis (manual Present 08/03/18 05:36 Anisocytosis Slight 08/05/18 05:57 Microcytosis Slight 08/04/18 05:52 Fragmented RBCs Present 08/04/18 05:52 PT 13.1 sec (9.0-12.0) H 08/03/18 21:40 INR 1.3 (<1.2) H 08/03/18 21:40 APTT 31.8 sec (22.0-30.0) H 08/03/18 21:40 Sodium 138 mmol/L (137-145) 08/05/18 05:57 Potassium 3.5 mmol/L (3.5-5.1) 08/05/18 05:57 Chloride 112 mmol/L (98-107) H 08/05/18 05:57 Carbon Dioxide 21 mmol/L (22-30) L 08/05/18 05:57 Anion Gap 5 mmol/L 08/05/18 05:57 BUN 18 mg/dL (9-20) 08/05/18 05:57 Creatinine 0.90 mg/dL (0.66-1.25) 08/05/18 05:57 Est GFR (CKD-EPI)AfAm >90 (>60 ml/min/1.73 sqM) 08/05/18 05:57 Est GFR (CKD-EPI)NonAf 90 (>60 ml/min/1.73 sqM) 08/05/18 05:57 Glucose 93 mg/dL (74-99) 08/05/18 05:57 Lactic Ac Sepsis Rflx Y 07/31/18 21:43 Plasma Lactic Acid Jaylen 1.1 mmol/L (0.7-2.0) 08/03/18 09:35 Uric Acid 2.7 mg/dL (3.5-8.5) L 08/02/18 09:46 Calcium 7.8 mg/dL (8.4-10.2) L 08/05/18 05:57 Phosphorus 1.9 mg/dL (2.5-4.5) L 08/02/18 09:46 Magnesium 2.0 mg/dL (1.6-2.3) 08/05/18 05:57 Total Bilirubin 0.9 mg/dL (0.2-1.3) 08/05/18 05:57 AST 317 U/L (17-59) H 08/05/18 05:57 ALT 393 U/L (21-72) H 08/05/18 05:57 Alkaline Phosphatase 375 U/L (38-126) H 08/05/18 05:57 Lactate Dehydrogenase 1217 U/L (313-618) H 08/02/18 09:46 Troponin I 0.124 ng/mL (0.000-0.034) H* 08/02/18 13:50 NT-Pro-B Natriuret Pep 34595 pg/mL 08/02/18 07:58 Total Protein 5.0 g/dL (6.3-8.2) L 08/05/18 05:57 Albumin 2.3 g/dL (3.5-5.0) L 08/05/18 05:57 Urine Color Yellow 08/01/18 00:10 Urine Appearance Clear (Clear) 08/01/18 00:10 Urine pH 6.0 (5.0-8.0) 08/01/18 00:10 Ur Specific [place] 1.021 (1.001-1.035) 08/01/18 00:10 Urine Protein 1+ (Negative) H 08/01/18 00:10 Urine Glucose (UA) Negative (Negative) 08/01/18 00:10 Urine Ketones Negative (Negative) 08/01/18 00:10 Urine Blood Moderate (Negative) H 08/01/18 00:10 Urine Nitrite Negative (Negative) 08/01/18 00:10 Urine Bilirubin Negative (Negative) 08/01/18 00:10 Urine Urobilinogen 2.0 mg/dL (<2.0) 08/01/18 00:10 Ur Leukocyte Esterase Negative (Negative) 08/01/18 00:10 Urine RBC 1 /hpf (0-5) 08/01/18 00:10 Urine WBC 2 /hpf (0-5) 08/01/18 00:10 Urine Mucus Rare /hpf (None) H 08/01/18 00:10 Stool Occult Blood Positive (Negative) 08/01/18 00:00 Vancomycin Trough 21.2 ug/mL 08/03/18 20:24 Hepatitis A IgM Ab Non-Reactive (Non-Reactive) 08/04/18 05:52 Hep Bs Antigen Non-Reactive (Non-Reactive) 08/04/18 05:52 Hep B Core IgM Ab Non-Reactive (Non-Reactive) 08/04/18 05:52 Hep C IgG Ab Non-Reactive (Non-Reactive) 08/04/18 05:52 Blood Type A Negative 07/31/18 22:11 Blood Type Recheck No 07/31/18 22:11 Antibody Screen NEGATIVE 07/31/18 22:11 Crossmatch See Detail 07/31/18 22:11 Transfuse Platelets 08/05/2018 08/05/18 Unknown Spec Expiration Date 08/03/2018 - 231007/31/18 22:11 Microbiology 08/03/18 09:35 Blood Blood Culture - Preliminary No Growth after 48 hours 08/04/18 05:52 Blood Blood Culture - Preliminary No Growth after 24 hours 08/01/18 01:47 Blood Blood Culture - Preliminary No Growth after 96 hours 08/01/18 00:10 Urine,Voided Urine Culture - Final Assessment and Plan (1) Acute myelogenous leukemia Narrative/Plan: 62-year-old male who has a history of AML who has not done well with his most recent course of chemotherapy. And hopefully will be able to start a new regimen to the near future. Comes in the hospital feeling ill with similar fever and elevation of his liver function tests. He does have evidence of some chronic cholecystitis without evidence of acute cholecystitis. Elevated AST and ALT potentially from current illness, recent medications most likely. However underlying infection of the biliary tract is not excluded at this time. Although his alkaline phosphatase is elevated the total bilirubin is normal. We'll expect the liver function tests will rapidly improve. In his fever improves with no evidence of bacteremia or other significant focus of infection, hopefully becomes a rapid candidate for chemotherapy for the treatment of his AML. Antibiotic therapy while cultures are process was initiated with meropenem and vancomycin given his history and concerns to biliary sepsis. 08/05/2018 patient still feels poorly. Slightly improved. Having no fever. Still difficulty ingesting food because the discomfort is oral cavity but no evidence of thrush or oral ulcerations. We'll continue current antibiotic therapy while cultures are processing. Fortunately negative so far. Likely the patient will start his chemotherapy tomorrow is a cultures are negative. It is likely that his current level of illness is related to his AML and increasing amounts of blasts in his peripheral smear. Current Visit: Yes Status: Acute Priority: High Code(s): C92.00 - ACUTE MYELOBLASTIC LEUKEMIA, NOT HAVING ACHIEVED REMISSION SNOMED Code(s): 70079372 (2) Elevated liver enzymes Current Visit: Yes Status: Acute Code(s): R74.8 - ABNORMAL LEVELS OF OTHER SERUM ENZYMES SNOMED Code(s): 613185268
[2018-08-06] MEDS: ACETAMINOPHEN TAB 500 MG TAB PO PRN ×2 (03:39→18:34)
[2018-08-06] MEDS: PANTOPRAZOLE 40 MG TABLET PO SCH ×2 (06:08→18:34)
[2018-08-06] MEDS ORDERED: SODIUM CHLORIDE 0.9% 1,000 ML IV SCH (07:00)
[2018-08-06] MEDS ORDERED: VANCOMYCIN TROUGH DUE 1 EACH MISC MISCELLANE ONE (09:00)
--- NOTE | 2018-08-06 09:21 | P.PN ---
Subjective Progress Note Date: 08/06/18 Principal diagnosis: Transaminitis Liver enzymes morning chemistries pending. No abdominal complaints. T-max 102.5. Objective - Vital Signs Vital signs: Vital Signs Temp 98.9 F 08/06/18 05:24 Pulse 101 H 08/06/18 04:00 Resp 18 08/06/18 04:00 BP 108/56 08/06/18 04:00 Pulse Ox 92 L 08/06/18 04:00 Intake & Output 08/05/18 08/06/18 08/06/18 18:59 06:59 18:59 Intake Total 556 302 Output Total 125 425 150 Balance 431 -123 -150 Weight 58.5 kg 73.5 kg Intake: Oral 240 Blood Product 316 302 Platelet Irr Pheresis 2 302 Acda Unit [id number] Platelet Irr Pheresis 316 Acda1 Unit [id number] Output: Urine 125 425 150 Other: Voiding Method Urinal Urinal Incontinent Diaper Incontinent # Voids 1 1 - Exam General appearance: The patient is alert, oriented, in no acute distress. Thin appearance. HET: Head is normocephalic and atraumatic. Pupils are equal and reactive. Oropharynx is clear without lesions. Neck: Supple without lymphadenopathy. Trachea midline. Heart: S1 S2. Regular rate and rhythm. Lungs: No crackles or wheezes are heard. Abdomen: Soft, nontender, nondistended with bowel sounds. No peritoneal signs. No palpable organomegaly or masses. Extremities: Normal skin color and turgor. No cyanosis, rash, ulceration, clubbing, or edema. Radial and pedal pulses are 2/4 bilaterally. Neurological: No focal deficits. Strength and sensation are grossly intact. - Labs CBC & Chem 7: 08/05/18 05:57 08/05/18 05:57 Labs: Microbiology - Last 24 Hours (Table) 08/04/18 05:52 Blood Culture - Preliminary Blood No Growth after 48 hours 08/01/18 01:47 Blood Culture - Preliminary Blood No Growth after 120 hours 08/03/18 09:35 Blood Culture - Preliminary Blood No Growth after 48 hours Assessment and Plan (1) Elevated liver enzymes Narrative/Plan: 62-year-old gentleman with a complicated oncology history, cardiomyopathy, presents with multiple constitutional complaints weakness fatigue fever pancytopenia with asymptomatic elevated transaminases with normal bilirubin. Abdominal imaging reported gallstones without ductal dilatation and gallbladder wall thickening however patient reports no episodes of abdominal pain. Liver enzyme pattern seems to be hepatocellular nature suspect drug-induced liver injury possible component of congestive hepatopathy possible underlying hepatocellular disease from previous chemotherapy treatments. Current Visit: Yes Status: Acute Code(s): R74.8 - ABNORMAL LEVELS OF OTHER SERUM ENZYMES SNOMED Code(s): 871255824 (2) Fever Current Visit: Yes Status: Acute Code(s): R50.9 - FEVER, UNSPECIFIED SNOMED Code(s): 158139719 (3) Acute myelogenous leukemia Current Visit: Yes Status: Acute Priority: High Code(s): C92.00 - ACUTE MYELOBLASTIC LEUKEMIA, NOT HAVING ACHIEVED REMISSION SNOMED Code(s): 06335944 (4) Pancytopenia Current Visit: Yes Status: Acute Priority: High Code(s): D61.818 - OTHER PANCYTOPENIA SNOMED Code(s): 616280060 Plan: 1. Daily monitoring of CBC CMP. Avoid hepatotoxic medications. Case discussed with oncologist Dr. Andrade no further workup from a GI standpoint at this time, unless liver function tests worsen. Chemotherapy per oncology. Assessment and plan a care discussed with Dr. Hall
--- NOTE | 2018-08-06 10:15 | PN ---
PROGRESS NOTE Mr. Nevarez is a 62-year-old male with a known history of lymphoma and leukemia, history of ischemic cardiomyopathy, history of PCI. He has had an episode of nonsustained ventricular tachycardia. He is scheduled to start chemotherapy again today. He is feeling well. He is denying any chest pain. He denies any dizziness or palpitation. He denies any nausea. He continued be in sinus mechanism. He has no further episode of atrial fibrillation. He has not been anticoagulated because of the anemia and the thrombocytopenia. He continues to be at this time on losartan 25 mg daily, isosorbide mononitrate 15 mg daily, metoprolol tartrate 25 mg 3 times a day, potassium, tramadol, vancomycin. PHYSICAL EXAMINATION: Blood pressure 108/60 with the heart rate in the low 100. He has 100.6 temperature. LUNGS: Decreased air exchange, no wheezes. HEART: Regular rate and rhythm. S1, S2. No S3 with systolic murmur. No diastolic murmur. ABDOMEN: Soft, nontender. EXTREMITIES: No edema. LAB DATA: Lab data revealed a hemoglobin of 9, platelet count of 74,000. His liver function tests are abnormal. IMPRESSION: 1. Acute myeloid leukemia with pancytopenia. 2. History of coronary artery disease with ischemic cardiomyopathy. 3. Paroxysmal atrial fibrillation. 4. Episode of ventricular tachycardia, resolved. RECOMMENDATION: From the cardiac standpoint, I will increase the dose of his beta rafael. Continue his medical regimen. He is febrile and that is related to his immunosuppressive status. Cardiac-garay, he is not a candidate for any aggressive workup at this time. Further management will be done by the oncology team. MALOUL / NANCY: [id number] /
[2018-08-06 10:18] LABS: Anisocytosis Slight; HCT 25.5 % (39.0-53.0); HGB 8.4 gm/dL (13.0-17.5); MCH 27.5 pg (25.0-35.0); MCV 83.3 fL (80.0-100.0); Mean Platelet Volume 7.5; RBC 3.07 m/uL (4.30-5.90); RDW 17.9 % (11.5-15.5); WBC 20.1 k/uL (3.8-10.6)
[2018-08-06 10:21] LABS: ALT 384 U/L (21-72); AST 322 U/L (17-59); Albumin 2.3 g/dL (3.5-5.0); Alkaline Phosphatase 364 U/L (38-126); Anion Gap 3 mmol/L; Blood Urea Nitrogen 17 mg/dL (9-20); Calcium 7.7 mg/dL (8.4-10.2); Carbon Dioxide 24 mmol/L (22-30); Chloride 112 mmol/L (98-107); Glucose 83 mg/dL (74-99); Potassium 4.3 mmol/L (3.5-5.1); Sodium 139 mmol/L (137-145); Total Protein 4.9 g/dL (6.3-8.2)
[2018-08-06 10:25] LABS: Platelet Count 37 k/uL (150-450)
[2018-08-06] MEDS: MEROPENEM 1 GM in SODIUM CHLORIDE 0.9% 100 ML IVPB SCH ×2 (10:50→16:14)
[2018-08-06] MEDS: FERROUS SULFATE 325 MG TAB PO SCH (10:51)
[2018-08-06] MEDS: LOSARTAN 25 MG TAB PO SCH (10:51)
[2018-08-06] MEDS: ASCORBIC ACID 500 MG TAB PO SCH (10:51)
[2018-08-06] MEDS: POTASSIUM CHLORIDE ER 20 MEQ TAB.ER PO SCH ×2 (10:51→20:46)
[2018-08-06] MEDS: ALLOPURINOL 300 MG TAB PO SCH (10:51)
[2018-08-06] MEDS: FOLIC ACID 1 MG TAB PO SCH (10:51)
[2018-08-06] MEDS: FLUCONAZOLE 100 MG TAB PO SCH (10:51)
[2018-08-06] MEDS: ACYCLOVIR 200 MG CAP PO SCH ×2 (10:51→20:46)
[2018-08-06] MEDS: MAG HYDROX/AL HYDROX/SIMETH 30 ML, LIDOCAINE VISCOUS 30 ML, diphenhydrAMINE ELIXIR 75 M... PO SCH ×12 (10:52→22:48)
[2018-08-06] MEDS: METOPROLOL SUCCINATE (ER) 25 MG TAB.ER.24H PO SCH (11:02)
[2018-08-06 12:12] LABS: Blast Cells # (M) 15.68 k/uL (0); Lymphocytes # (M) 1.81 k/uL (1.0-4.8); Monocytes # (M) 2.01 k/uL (0-1.0); Neutrophils % (M) 3 %; Nucleated Red Blood Cells 0 /100 WBC (0-0); Total Cells Counted 100
[2018-08-06] MEDS: VANCOMYCIN 1,250 MG in SODIUM CHLORIDE 0.9% 250 ML IVPB SCH ×2 (12:45→22:42)
[2018-08-06] MEDS ORDERED: IPRATROPIUM-ALBUTEROL 3 ML NEB INHALATION PRN (13:38)
--- NOTE | 2018-08-06 13:40 | P.PN ---
Subjective 62-year-old pleasant gentleman was admitted with severe symptomatic anemia. Patient has acute myelogenous leukemia. Patient has a continuous fevers these were believed to be significant acute myelogenous leukemia. Patient although is on broad-spectrum antibiotics including the meropenem, flucanazole.patient does have leukocytosis which is actually bit worse today no diarrhea at this time infectious disease is following the patient patient has multiple consultants that are following the patient patient had sustained VT which was believed to be secondary to hypomagnesemia patient apparently has torsades. Magnesium is being supplemented patient had EF of around 35% patient is euvolemic at this time. Patient's IV fluids were discontinued. Patient has severe mucositis. Patient has elevated liver enzymes which were second believed secondary to cholelithiasis and probable chronic cholecystitis and fevers are probably not because of this.plan is for chemotherapy as his fevers and leukocytosis was believed secondary to acute myelogenous leukemia and patient has monocyte predominance.patient doesn't look well looks really sick with the real bad mucositis. 08/06/2018 patient continues to have feverstachycardic secondary to fevers no significant change compared to yesterday patient will be transferred to oncology floor and will receive chemotherapy there Constitutional: Denied any fatigue denied any fever. Cardio vascular: denied any chest pain, palpitations Gastrointestinal denied any nausea vomiting Pulmonary: Denied any shortness of breath cough Neurologic denied any new focal deficits All inpatient medications were reviewed and appropriate changes in these medications as dictated in the interval history and assessment and plan. Objective - Vital Signs Vital signs: Vital Signs Temp 98.9 F 08/06/18 05:24 Pulse 101 H 08/06/18 04:00 Resp 18 08/06/18 04:00 BP 108/56 08/06/18 04:00 Pulse Ox 92 L 08/06/18 04:00 Intake & Output 08/05/18 08/06/18 08/06/18 18:59 06:59 18:59 Intake Total 556 302 Output Total 125 425 350 Balance 431 -123 -350 Weight 58.5 kg 73.5 kg Intake: Oral 240 Blood Product 316 302 Platelet Irr Pheresis 2 302 Acda Unit [id number] Platelet Irr Pheresis 316 Acda1 Unit [id number] Output: Urine 125 425 350 Other: Voiding Method Urinal Urinal Incontinent Diaper Incontinent # Voids 1 1 - Exam PHYSICAL EXAMINATION: GENERAL: The patient is alert and oriented x3, not in any acute distress. Well developed, well nourished. looks unwell HEENT: Pupils are round and equally reacting to light. EOMI. No scleral icterus. No conjunctival pallor. Normocephalic, atraumatic. No pharyngeal erythema. No thyromegaly. she does have mucositis and that oral cavity. CARDIOVASCULAR: S1 and S2 present. No murmurs, rubs, or gallops. tachycardic PULMONARY: does have expiratory wheezing ABDOMEN: Soft, nontender, nondistended, normoactive bowel sounds. No palpable organomegaly. MUSCULOSKELETAL: No joint swelling or deformity. EXTREMITIES: No cyanosis, clubbing, or pedal edema. NEUROLOGICAL: Gross neurological examination did not reveal any focal deficits. SKIN: No rashes. - Labs CBC & Chem 7: 08/06/18 09:45 08/06/18 09:45 Labs: Abnormal Lab Results - Last 24 Hours (Table) 08/06/18 08/06/18 Range/Units 09:45 09:45 WBC 20.1 H (3.8-10.6) k/uL RBC 3.07 L (4.30-5.90) m/uL Hgb 8.4 L (13.0-17.5) gm/dL Hct 25.5 L (39.0-53.0) % RDW 17.9 H (11.5-15.5) % Plt Count 37 L D (150-450) k/uL Blast Cells % 78 H* % Neutrophils # (Manual) 0.60 L (1.3-7.7) k/uL Monocytes # (Manual) 2.01 H (0-1.0) k/uL Blast Cells # (Man) 15.68 H (0) k/uL Chloride 112 H (98-107) mmol/L Calcium 7.7 L (8.4-10.2) mg/dL AST 322 H (17-59) U/L ALT 384 H (21-72) U/L Alkaline Phosphatase 364 H (38-126) U/L Total Protein 4.9 L (6.3-8.2) g/dL Albumin 2.3 L (3.5-5.0) g/dL Microbiology - Last 24 Hours (Table) 08/03/18 09:35 Blood Culture - Preliminary Blood No Growth after 72 hours 08/04/18 05:52 Blood Culture - Preliminary Blood No Growth after 48 hours 08/01/18 01:47 Blood Culture - Preliminary Blood No Growth after 120 hours Assessment and Plan Plan: -acute myelogenous leukemia leading to fevers patient will undergo chemotherapy patient has bicytopenia secondary to that. Patient has severe thrombocytopenia for which patient received the platelet transfusion no evidence of GI bleed at this time or any other bleed at this time the with patient appears to have COPD with mild exacerbation patient will be started on inhalational treatments -Fever secondary to AML. Patient has cholelithiasis and chronic cholecystitis on broad-spectrum antibiotics although this is not believed to be causing fever. -Chronic cholelithiasis with elevated liver enzymes -Elevated liver enzymes secondary to cholelithiasis and possible chronic cholecystitis -Congestive heart failure chronic systolic dysfunction. Of around 35% patient is euvolemic -Sustained VT and possible torsades believed to be secondary to hypomagnesemia was supplemented. patient's prognosis is poor
[2018-08-06] MEDS ORDERED: VENETOCLAX 100 MG PO SCH (14:00)
--- NOTE | 2018-08-06 14:05 | P.PN ---
Subjective Progress Note Date: 08/06/18 Principal diagnosis: Febrile Neutropenia AML plan to start re-induction with venetclax and VIdaza, awaiting patient to transfer to Oncology unit. He is confused intermittently today and having difficult time taking potassium PO, may give through MP once on onc floor Objective - Vital Signs Vital signs: Vital Signs Temp 98.9 F 08/06/18 05:24 Pulse 101 H 08/06/18 04:00 Resp 18 08/06/18 04:00 BP 108/56 08/06/18 04:00 Pulse Ox 92 L 08/06/18 04:00 Intake & Output 08/05/18 08/06/18 08/06/18 18:59 06:59 18:59 Intake Total 556 302 Output Total 125 425 350 Balance 431 -123 -350 Weight 58.5 kg 73.5 kg Intake: Oral 240 Blood Product 316 302 Platelet Irr Pheresis 2 302 Acda Unit [id number] Platelet Irr Pheresis 316 Acda1 Unit [id number] Output: Urine 125 425 350 Other: Voiding Method Urinal Urinal Incontinent Diaper Incontinent # Voids 1 1 - Exam - Constitutional General appearance: no acute distress - EENT Eyes: EOMI, PERRLA ENT: hearing grossly normal, other (scant old blood on lower gums) - Neck Neck: no lymphadenopathy - Respiratory Respiratory: bilateral: CTA - Cardiovascular Rhythm: regular Heart sounds: normal: S1, S2 - Gastrointestinal General gastrointestinal: normal bowel sounds, soft - Integumentary Integumentary: normal - Neurologic Neurologic: CNII-XII intact - Musculoskeletal Musculoskeletal: strength equal bilaterally - Psychiatric Psychiatric: A&O x's 3, appropriate affect - Labs CBC & Chem 7: 08/06/18 09:45 08/06/18 09:45 Labs: Abnormal Lab Results - Last 24 Hours (Table) 08/06/18 08/06/18 Range/Units 09:45 09:45 WBC 20.1 H (3.8-10.6) k/uL RBC 3.07 L (4.30-5.90) m/uL Hgb 8.4 L (13.0-17.5) gm/dL Hct 25.5 L (39.0-53.0) % RDW 17.9 H (11.5-15.5) % Plt Count 37 L D (150-450) k/uL Blast Cells % 78 H* % Neutrophils # (Manual) 0.60 L (1.3-7.7) k/uL Monocytes # (Manual) 2.01 H (0-1.0) k/uL Blast Cells # (Man) 15.68 H (0) k/uL Chloride 112 H (98-107) mmol/L Calcium 7.7 L (8.4-10.2) mg/dL AST 322 H (17-59) U/L ALT 384 H (21-72) U/L Alkaline Phosphatase 364 H (38-126) U/L Total Protein 4.9 L (6.3-8.2) g/dL Albumin 2.3 L (3.5-5.0) g/dL Microbiology - Last 24 Hours (Table) 08/03/18 09:35 Blood Culture - Preliminary Blood No Growth after 72 hours 08/04/18 05:52 Blood Culture - Preliminary Blood No Growth after 48 hours 08/01/18 01:47 Blood Culture - Preliminary Blood No Growth after 120 hours Assessment and Plan Plan: Pancytopenia - Secondary to underlying leukemia, which unfortunetly he has failed initial induction therapy - Blast Count today 86% - This will continue to worsen if his AML does not respond to therapy with re- induction - Daily CBC and Supportive irradiated transfusions at this time - Treatment of active infections and prophylaxis for Viral and fungal - Keep Platlet count greater than 10, and hemoglobin greater than 7 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 - Failed induction chemotherapy - Plan to treat with Salvage regimen of Venetoclax and Vidaza, WILL START THURSDAY - In the interim will continue supportive care Weakness - Progressive weakness and possibly some shortness of breath and confusion was the presenting complaint this time. - This could be due to his cytopenias. In addition to supportive transfusions, infection will need to be ruled out. - If cardiac etiology. Unfortunately, he is not a candidate for any aggressive cardiac intervention, including any type of anticoagulation or antiplatelet therapies due to his severe thrombocytopenia. Therefore his prognosis from the cardiac standpoint is very guarded. Abnormal and increased Liver Enzymes: - Medications versus other - GI Consult Placed - CT abdomen to assess - Review of medications - CMP in am. PLAN: - Venatoclax and Vidaza daily inpatient for 7 days - Continue PT/OT - Continue Supportive - Daily CBC, CMP, Mg, Phos, Uric Acid - Irradiated Blood Products Only Physician Attest: I have completed the full history and physical and devloped impression and plan, agree with dictation, dictated as a scribe
[2018-08-06 14:34] LABS: Phosphorus 2.2 mg/dL (2.5-4.5); Uric Acid 2.7 mg/dL (3.5-8.5)
[2018-08-06] MEDS: ONDANSETRON 16 MG in SODIUM CHLORIDE 0.9% 50 ML IVPB SCH (16:14)
[2018-08-06] MEDS: VENETOCLAX 100 MG PO SCH (18:33)
[2018-08-06] MEDS: ISOSORBIDE MONONITRATE ER 30 MG TAB.ER.24H PO SCH (20:46)
[2018-08-06] MEDS: METOPROLOL SUCCINATE (ER) 50 MG TAB.ER.24H PO SCH (20:51)
--- NOTE | 2018-08-06 22:44 | P.PN ---
Subjective Progress Note Date: 08/06/18 This is a 62-year-old male with significant past history of CLL initially diagnosed in December 2000 followed by diagnosis of diffuse large B- cell lymphoma in 2014 and again in 2016. He suffered from myocardial infarction during course of chemotherapy was stopped. Heart catheterization found complete RCA occlusion with collaterals and tight stenosis in the circumflex that was difficult to stent and not considered a candidate for surgery and was placed on medical management but eventually had successful stenting of the LAD and left circumflex. It was decided in September 2017 not to proceed with chemotherapy. In May of this year, patient presented with shortness of breath and pancytopenia was found to be in acute myeloleukemia and started chemotherapy on June 12 with 7+3 regime, supportive transfusions and prophylactic antibiotics. The patient's course was complicated as he appeared does not have any drug coverage and application to the drug companies have been done by the oncologist office. 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 Patient presented to [facility] emergency center on August 02 with complaints of weakness and intermittent confusion. Patient also states he was running fevers at home. He denies having any shortness of breath or chest pain. He states he has had a cough with possibly some sputum production. Patient presented with fever of 103.3, tachycardia and hypotension. White cell count is at 19.9, hemoglobin 8.7 and platelet count 15 and last at 19.7. Patient has had transfusion of 3 units packed RBCs and 2 units of platelets. The patient's course has been complicated as he developed atrial fibrillation currently on Cardizem drip and followed by cardiology. Stool for occult blood is positive and liver function tests have been elevated. Gastroenterology is also following the patient. He underwent a liver ultrasound this morning and report is pending. A CAT scan of the abdomen pelvis also ordered. Patient has been on vancomycin and meropenem was added by ID. Urine culture has been finalized with no growth and blood culture showing no growth at 72 hours. 08/05/2018 patient is definitely feeling better today. His fever has resolved. Some difficulty with swallowing is uncomfortable. But otherwise has no other acute complaints. 08/06/2018 patient transferred to oncology unit to begin his next course of chemotherapy for persistent AML Objective - Vital Signs Vital signs: Vital Signs Temp 99.0 F 08/06/18 22:03 Pulse 121 H 08/06/18 20:49 Resp 32 H 08/06/18 20:49 BP 114/59 08/06/18 20:49 Pulse Ox 93 L 08/06/18 20:49 Intake & Output 08/06/18 08/06/18 08/07/18 06:59 18:59 06:59 Intake Total 302 Output Total 425 350 Balance -123 -350 Weight 73.5 kg Intake: Blood Product 302 Platelet Irr Pheresis 2 302 Acda Unit [id number] Output: Urine 425 350 Other: Voiding Method Urinal Urinal Urinal Diaper Diaper Diaper Incontinent Incontinent Incontinent # Voids 1 1 - Exam Gen: This is a thin 62-year-old male. He is resting in bed and sleeping and awakens easily to verbal stimuli. HEENT: Head is atraumatic, normocephalic. Pupils equal, round. Sclerae is anicteric. Oral mucous membranes are dry but without thrush but oral cavity remains uncomfortable. Patient is essentially edentulous with 1 lone tooth on top mid front. NECK: Supple. No JVD. No thyromegaly. LUNGS: Scattered rhonchi and bibasilar rales. Congestive moist cough noted. No intercostal retractions. HEART: Regular rate and rhythm. No murmur. Tachycardic. ABDOMEN: Soft. Bowel sounds are present. No masses. No tenderness. No right upper quadrant tenderness. EXTREMITIES: No pedal edema. No calf tenderness. Dorsalis pedis are +1 bilaterally. NEUROLOGICAL: Patient is awake, alert and oriented x2 - Labs CBC & Chem 7: 08/06/18 09:45 08/06/18 09:45 Labs: Abnormal Lab Results - Last 24 Hours (Table) 08/06/18 08/06/18 08/06/18 Range/Units 09:45 09:45 09:45 WBC 20.1 H (3.8-10.6) k/uL RBC 3.07 L (4.30-5.90) m/uL Hgb 8.4 L (13.0-17.5) gm/dL Hct 25.5 L (39.0-53.0) % RDW 17.9 H (11.5-15.5) % Plt Count 37 L D (150-450) k/uL Blast Cells % 78 H* % Neutrophils # (Manual) 0.60 L (1.3-7.7) k/uL Monocytes # (Manual) 2.01 H (0-1.0) k/uL Blast Cells # (Man) 15.68 H (0) k/uL Chloride 112 H (98-107) mmol/L Uric Acid 2.7 L (3.5-8.5) mg/dL Calcium 7.7 L (8.4-10.2) mg/dL Phosphorus 2.2 L (2.5-4.5) mg/dL AST 322 H (17-59) U/L ALT 384 H (21-72) U/L Alkaline Phosphatase 364 H (38-126) U/L Lactate Dehydrogenase 1143 H (313-618) U/L Total Protein 4.9 L (6.3-8.2) g/dL Albumin 2.3 L (3.5-5.0) g/dL Microbiology - Last 24 Hours (Table) 08/03/18 09:35 Blood Culture - Preliminary Blood No Growth after 72 hours 08/04/18 05:52 Blood Culture - Preliminary Blood No Growth after 48 hours 08/01/18 01:47 Blood Culture - Preliminary Blood No Growth after 120 hours Laboratory Results WBC 20.1 k/uL (3.8-10.6) H 08/06/18 09:45 RBC 3.07 m/uL (4.30-5.90) L 08/06/18 09:45 Hgb 8.4 gm/dL (13.0-17.5) L 08/06/18 09:45 Hct 25.5 % (39.0-53.0) L 08/06/18 09:45 MCV 83.3 fL (80.0-100.0) 08/06/18 09:45 MCH 27.5 pg (25.0-35.0) 08/06/18 09:45 MCHC 33.0 g/dL (31.0-37.0) 08/06/18 09:45 RDW 17.9 % (11.5-15.5) H 08/06/18 09:45 Plt Count 37 k/uL (150-450) L D 08/06/18 09:45 Neutrophils % (Manual) 3 % 08/06/18 09:45 Lymphocytes % (Manual) 9 % 08/06/18 09:45 Monocytes % (Manual) 10 % 08/06/18 09:45 Blast Cells % 78 % H* 08/06/18 09:45 Neutrophils # IBM BPM ARCHITECT 08/03/18 05:36 Neutrophils # (Manual) 0.60 k/uL (1.3-7.7) L 08/06/18 09:45 Lymphocytes # (Manual) 1.81 k/uL (1.0-4.8) 08/06/18 09:45 Monocytes # (Manual) 2.01 k/uL (0-1.0) H 08/06/18 09:45 Blast Cells # (Man) 15.68 k/uL (0) H 08/06/18 09:45 Nucleated RBCs 0 /100 WBC (0-0) 08/06/18 09:45 Manual Slide Review Performed 08/06/18 09:45 Hypochromasia Moderate 08/01/18 10:42 Poikilocytosis Slight 08/04/18 05:52 Poikilocytosis (manual Present 08/03/18 05:36 Anisocytosis Slight 08/06/18 09:45 Microcytosis Slight 08/04/18 05:52 Fragmented RBCs Present 08/04/18 05:52 PT 13.1 sec (9.0-12.0) H 08/03/18 21:40 INR 1.3 (<1.2) H 08/03/18 21:40 APTT 31.8 sec (22.0-30.0) H 08/03/18 21:40 Sodium 139 mmol/L (137-145) 08/06/18 09:45 Potassium 4.3 mmol/L (3.5-5.1) 08/06/18 09:45 Chloride 112 mmol/L (98-107) H 08/06/18 09:45 Carbon Dioxide 24 mmol/L (22-30) 08/06/18 09:45 Anion Gap 3 mmol/L 08/06/18 09:45 BUN 17 mg/dL (9-20) 08/06/18 09:45 Creatinine 0.87 mg/dL (0.66-1.25) 08/06/18 09:45 Est GFR (CKD-EPI)AfAm >90 (>60 ml/min/1.73 sqM) 08/06/18 09:45 Est GFR (CKD-EPI)NonAf >90 (>60 ml/min/1.73 sqM) 08/06/18 09:45 Glucose 83 mg/dL (74-99) 08/06/18 09:45 Lactic Ac Sepsis Rflx Y 07/31/18 21:43 Plasma Lactic Acid Jaylen 1.1 mmol/L (0.7-2.0) 08/03/18 09:35 Uric Acid 2.7 mg/dL (3.5-8.5) L 08/06/18 09:45 Calcium 7.7 mg/dL (8.4-10.2) L 08/06/18 09:45 Phosphorus 2.2 mg/dL (2.5-4.5) L 08/06/18 09:45 Magnesium 2.0 mg/dL (1.6-2.3) 08/06/18 09:45 Total Bilirubin 1.0 mg/dL (0.2-1.3) 08/06/18 09:45 AST 322 U/L (17-59) H 08/06/18 09:45 ALT 384 U/L (21-72) H 08/06/18 09:45 Alkaline Phosphatase 364 U/L (38-126) H 08/06/18 09:45 Lactate Dehydrogenase 1143 U/L (313-618) H 08/06/18 09:45 Troponin I 0.124 ng/mL (0.000-0.034) H* 08/02/18 13:50 NT-Pro-B Natriuret Pep 82381 pg/mL 08/02/18 07:58 Total Protein 4.9 g/dL (6.3-8.2) L 08/06/18 09:45 Albumin 2.3 g/dL (3.5-5.0) L 08/06/18 09:45 Urine Color Yellow 08/01/18 00:10 Urine Appearance Clear (Clear) 08/01/18 00:10 Urine pH 6.0 (5.0-8.0) 08/01/18 00:10 Ur Specific Powell 1.021 (1.001-1.035) 08/01/18 00:10 Urine Protein 1+ (Negative) H 08/01/18 00:10 Urine Glucose (UA) Negative (Negative) 08/01/18 00:10 Urine Ketones Negative (Negative) 08/01/18 00:10 Urine Blood Moderate (Negative) H 08/01/18 00:10 Urine Nitrite Negative (Negative) 08/01/18 00:10 Urine Bilirubin Negative (Negative) 08/01/18 00:10 Urine Urobilinogen 2.0 mg/dL (<2.0) 08/01/18 00:10 Ur Leukocyte Esterase Negative (Negative) 08/01/18 00:10 Urine RBC 1 /hpf (0-5) 08/01/18 00:10 Urine WBC 2 /hpf (0-5) 08/01/18 00:10 Urine Mucus Rare /hpf (None) H 08/01/18 00:10 Stool Occult Blood Positive (Negative) 08/01/18 00:00 Vancomycin Trough 19.5 ug/mL 08/06/18 09:45 Hepatitis A IgM Ab Non-Reactive (Non-Reactive) 08/04/18 05:52 Hep Bs Antigen Non-Reactive (Non-Reactive) 08/04/18 05:52 Hep B Core IgM Ab Non-Reactive (Non-Reactive) 08/04/18 05:52 Hep C IgG Ab Non-Reactive (Non-Reactive) 08/04/18 05:52 Blood Type A Negative 07/31/18 22:11 Blood Type Recheck No 07/31/18 22:11 Antibody Screen NEGATIVE 07/31/18 22:11 Crossmatch See Detail 07/31/18 22:11 Transfuse Platelets 08/05/2018 08/05/18 Unknown Spec Expiration Date 08/03/2018 - 2311 07/31/18 22:11 Microbiology 08/03/18 09:35 Blood Blood Culture - Preliminary No Growth after 72 hours 08/04/18 05:52 Blood Blood Culture - Preliminary No Growth after 48 hours 08/01/18 01:47 Blood Blood Culture - Preliminary No Growth after 120 hours 08/01/18 00:10 Urine,Voided Urine Culture - Final Assessment and Plan (1) Acute myelogenous leukemia Narrative/Plan: 62-year-old male who has a history of AML who has not done well with his most recent course of chemotherapy. And hopefully will be able to start a new regimen to the near future. Comes in the hospital feeling ill with similar fever and elevation of his liver function tests. He does have evidence of some chronic cholecystitis without evidence of acute cholecystitis. Elevated AST and ALT potentially from current illness, recent medications most likely. However underlying infection of the biliary tract is not excluded at this time. Although his alkaline phosphatase is elevated the total bilirubin is normal. We'll expect the liver function tests will rapidly improve. In his fever improves with no evidence of bacteremia or other significant focus of infection, hopefully becomes a rapid candidate for chemotherapy for the treatment of his AML. Antibiotic therapy while cultures are process was initiated with meropenem and vancomycin given his history and concerns to biliary sepsis. 08/05/2018 patient still feels poorly. Slightly improved. Having no fever. Still difficulty ingesting food because the discomfort is oral cavity but no evidence of thrush or oral ulcerations. We'll continue current antibiotic therapy while cultures are processing. Fortunately negative so far. Likely the patient will start his chemotherapy tomorrow is a cultures are negative. It is likely that his current level of illness is related to his AML and increasing amounts of blasts in his peripheral smear. 08/06/2018 patient feels poorly. Is having some low-grade fever liken the basis of his current AML. To receive new course of chemotherapy starting today. Cultures are negative. Patient remains on the extensive antimicrobial coverage, I believe this will continue for now. Will re- culture if febrile. It continues to have fevers with transition antifungal therapy. Current Visit: Yes Status: Acute Priority: High Code(s): C92.00 - ACUTE MYELOBLASTIC LEUKEMIA, NOT HAVING ACHIEVED REMISSION SNOMED Code(s): 30380074 (2) Elevated liver enzymes Current Visit: Yes Status: Acute Code(s): R74.8 - ABNORMAL LEVELS OF OTHER SERUM ENZYMES SNOMED Code(s): 271392532
[2018-08-07] MEDS: MEROPENEM 1 GM in SODIUM CHLORIDE 0.9% 100 ML IVPB SCH ×4 (01:00→23:53)
[2018-08-07] MEDS: MAG HYDROX/AL HYDROX/SIMETH 30 ML, LIDOCAINE VISCOUS 30 ML, diphenhydrAMINE ELIXIR 75 M... PO SCH ×12 (06:52→22:14)
[2018-08-07 07:57] LABS: ALT 279 U/L (21-72); AST 210 U/L (17-59); Albumin 2.1 g/dL (3.5-5.0); Alkaline Phosphatase 315 U/L (38-126); Anion Gap 5 mmol/L; Blood Urea Nitrogen 21 mg/dL (9-20); Calcium 7.4 mg/dL (8.4-10.2); Carbon Dioxide 20 mmol/L (22-30); Chloride 112 mmol/L (98-107); Glucose 119 mg/dL (74-99); LDH 1135 U/L (313-618); Magnesium 2.1 mg/dL (1.6-2.3); Phosphorus 3.2 mg/dL (2.5-4.5); Potassium 3.8 mmol/L (3.5-5.1); Sodium 137 mmol/L (137-145); Total Bilirubin 0.7 mg/dL (0.2-1.3); Total Protein 4.5 g/dL (6.3-8.2); Uric Acid 3.5 mg/dL (3.5-8.5)
[2018-08-07 08:11] LABS: Anisocytosis Slight; HCT 23.7 % (39.0-53.0); HGB 7.7 gm/dL (13.0-17.5); MCH 27.1 pg (25.0-35.0); MCHC 32.5 g/dL (31.0-37.0); MCV 83.4 fL (80.0-100.0); Mean Platelet Volume 8.2; RBC 2.84 m/uL (4.30-5.90); RDW 17.9 % (11.5-15.5); WBC 4.9 k/uL (3.8-10.6)
[2018-08-07 08:22] LABS: Platelet Count 24 k/uL (150-450)
[2018-08-07] MEDS: ACYCLOVIR 200 MG CAP PO SCH ×2 (09:48→20:39)
[2018-08-07] MEDS: PANTOPRAZOLE 40 MG TABLET PO SCH ×2 (09:48→18:56)
[2018-08-07] MEDS: FERROUS SULFATE 325 MG TAB PO SCH (09:49)
[2018-08-07] MEDS: ALLOPURINOL 300 MG TAB PO SCH (09:49)
[2018-08-07 10:03] LABS: Lymphocytes # (M) 0.25 k/uL (1.0-4.8); Monocytes # (M) 0.34 k/uL (0-1.0); Neutrophils % (M) 1 %; Nucleated Red Blood Cells 0 /100 WBC (0-0); Total Cells Counted 100
[2018-08-07 10:05] LABS: Neutrophils # (M) 0.05 k/uL (1.3-7.7)
[2018-08-07 10:06] LABS: Blast Cells # (M) 4.26 k/uL (0)
[2018-08-07] MEDS: VANCOMYCIN 1,250 MG in SODIUM CHLORIDE 0.9% 250 ML IVPB SCH ×2 (10:34→20:41)
[2018-08-07] MEDS: ASCORBIC ACID 500 MG TAB PO SCH (10:37)
[2018-08-07] MEDS: FLUCONAZOLE 100 MG TAB PO SCH (10:37)
[2018-08-07] MEDS: FOLIC ACID 1 MG TAB PO SCH (10:37)
[2018-08-07] MEDS: METOPROLOL SUCCINATE (ER) 50 MG TAB.ER.24H PO SCH ×2 (10:37→20:38)
[2018-08-07] MEDS: POTASSIUM CHLORIDE ER 20 MEQ TAB.ER PO SCH ×2 (10:38→20:39)
[2018-08-07] MEDS: ACETAMINOPHEN TAB 500 MG TAB PO PRN (12:46)
--- NOTE | 2018-08-07 13:10 | P.PN ---
Subjective Progress Note Date: 08/07/18 The patient remains quite weak. However he states that he actually feels a little better today. His mouth feels significantly improved. He is tolerating his diet. No significant diarrhea. No obvious bleeding, fevers or chills currently. Fever pattern overall improved Objective - Vital Signs Vital signs: Vital Signs Temp 99.1 F 08/07/18 12:15 Pulse 69 08/07/18 12:15 Resp 16 08/07/18 12:15 BP 112/64 08/07/18 12:15 Pulse Ox 96 08/07/18 12:15 Intake & Output 08/06/18 08/07/18 08/07/18 18:59 06:59 18:59 Intake Total 390 Output Total 350 Balance -350 390 Weight 72.5 kg Intake: Intake, IV Titration 390 Amount Meropenem 1 gm In Sodium 100 Chloride 0.9% 100 ml @ 200 mls/hr IVPB Q8HR [facility] Rx#:[id number] Vancomycin 1,250 mg In 250 Sodium Chloride 0.9% 250 ml @ 125 mls/hr IVPB Q12H [facility] Rx#:[id number] azaCITIDine 140 mg In 40 Sodium Chloride 0.9% 100 ml @ 684 mls/hr IV Q24H [facility] Rx#:[id number] Output: Urine 350 Other: Voiding Method Urinal Urinal Urinal Diaper Diaper Diaper Incontinent Incontinent Incontinent # Voids 1 - Constitutional General appearance: Present: no acute distress - EENT Eyes: Present: EOMI ENT: Present: hearing grossly normal, normal oropharynx - Respiratory Respiratory: bilateral: CTA - Cardiovascular Rhythm: regular Heart sounds: normal: S1, S2 - Gastrointestinal General gastrointestinal: Present: normal bowel sounds, soft - Integumentary Integumentary: Present: normal - Neurologic Neurologic: Present: CNII-XII intact - Musculoskeletal Musculoskeletal: Present: generalized weakness, strength equal bilaterally - Psychiatric Psychiatric: Present: A&O x's 3, appropriate affect - Labs CBC & Chem 7: 08/07/18 06:29 08/07/18 06:29 Labs: Abnormal Lab Results - Last 24 Hours (Table) 08/06/18 08/07/18 08/07/18 Range/Units 09:45 06:29 06:29 RBC 2.84 L (4.30-5.90) m/uL Hgb 7.7 L (13.0-17.5) gm/dL Hct 23.7 L (39.0-53.0) % RDW 17.9 H (11.5-15.5) % Plt Count 24 L (150-450) k/uL Blast Cells % 87 H* % Neutrophils # (Manual) 0.05 L* (1.3-7.7) k/uL Lymphocytes # (Manual) 0.25 L (1.0-4.8) k/uL Blast Cells # (Man) 4.26 H (0) k/uL Chloride 112 H (98-107) mmol/L Carbon Dioxide 20 L (22-30) mmol/L BUN 21 H (9-20) mg/dL Glucose 119 H (74-99) mg/dL Uric Acid 2.7 L (3.5-8.5) mg/dL Calcium 7.4 L (8.4-10.2) mg/dL Phosphorus 2.2 L (2.5-4.5) mg/dL AST 210 H (17-59) U/L ALT 279 H (21-72) U/L Alkaline Phosphatase 315 H (38-126) U/L Lactate Dehydrogenase 1143 H 1135 H (313-618) U/L Total Protein 4.5 L (6.3-8.2) g/dL Albumin 2.1 L (3.5-5.0) g/dL Microbiology - Last 24 Hours (Table) 08/03/18 09:35 Blood Culture - Preliminary Blood No Growth after 96 hours 08/04/18 05:52 Blood Culture - Preliminary Blood No Growth after 72 hours 08/01/18 01:47 Blood Culture - Final Blood No Growth after 144 hours Assessment and Plan (1) Pancytopenia Narrative/Plan: The patient's WBC is actually the normal range, but he has effective pancytopenia as most of the white blood cells are blasts. Hemoglobin and platelets are in a safe range today. Continue to monitor with additional transfusion support as needed Current Visit: Yes Status: Acute Priority: High Code(s): D61.818 - OTHER PANCYTOPENIA SNOMED Code(s): 986402707 (2) Acute myelogenous leukemia Narrative/Plan: The patient has been having rapidly progressive disease, with increasing symptoms and WBC consisting mainly of blasts in the peripheral blood. He is just been started on salvage chemotherapy with Vidaza IV, and Venetoclax by mouth. He is on day 2 today. No issues with tolerance of the medication so far. Continue treatment per protocol. Monitor closely for evidence of tumor lysis. The patient is on allopurinol. Current Visit: Yes Status: Acute Priority: High Code(s): C92.00 - ACUTE MYELOBLASTIC LEUKEMIA, NOT HAVING ACHIEVED REMISSION SNOMED Code(s): 05168376 (3) Weakness Narrative/Plan: Due to progression of underlying leukemia, and cytopenias. Continue supportive care Current Visit: Yes Status: Acute Code(s): R53.1 - WEAKNESS SNOMED Code(s): 79986369 (4) Neutropenia with fever Narrative/Plan: It is more likely that this is tumor fever of an infection. However given the patient's significant immunocompromise state, infection cannot be ruled out. The patient is on broad-spectrum IV antibiotics and is being followed by ID. Cultures negative so far. Continue antibiotics per ID. Fever pattern has shown improvement. If fever is due to his leukemia, then improvement is expected as he progresses through current treatment assuming that cytoreduction is achieved Current Visit: No Status: Acute Code(s): D70.9 - NEUTROPENIA, UNSPECIFIED; R50.81 - FEVER PRESENTING WITH CONDITIONS CLASSIFIED ELSEWHERE SNOMED Code(s): 473802275
[2018-08-07] MEDS: LOSARTAN 25 MG TAB PO SCH (14:45)
[2018-08-07] MEDS: ONDANSETRON 16 MG in SODIUM CHLORIDE 0.9% 50 ML IVPB SCH (14:48)
[2018-08-07] MEDS: VENETOCLAX 100 MG PO SCH (14:51)
--- NOTE | 2018-08-07 22:13 | P.PN ---
Subjective Progress Note Date: 08/07/18 This is a 62-year-old male with significant past history of CLL initially diagnosed in December 2000 followed by diagnosis of diffuse large B- cell lymphoma in 2014 and again in 2016. He suffered from myocardial infarction during course of chemotherapy was stopped. Heart catheterization found complete RCA occlusion with collaterals and tight stenosis in the circumflex that was difficult to stent and not considered a candidate for surgery and was placed on medical management but eventually had successful stenting of the LAD and left circumflex. It was decided in September 2017 not to proceed with chemotherapy. In May of this year, patient presented with shortness of breath and pancytopenia was found to be in acute myeloleukemia and started chemotherapy on June 12 with 7+3 regime, supportive transfusions and prophylactic antibiotics. The patient's course was complicated as he appeared does not have any drug coverage and application to the drug companies have been done by the oncologist office. 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 Patient presented to [facility] emergency center on August 02 with complaints of weakness and intermittent confusion. Patient also states he was running fevers at home. He denies having any shortness of breath or chest pain. He states he has had a cough with possibly some sputum production. Patient presented with fever of 103.3, tachycardia and hypotension. White cell count is at 19.9, hemoglobin 8.7 and platelet count 15 and last at 19.7. Patient has had transfusion of 3 units packed RBCs and 2 units of platelets. The patient's course has been complicated as he developed atrial fibrillation currently on Cardizem drip and followed by cardiology. Stool for occult blood is positive and liver function tests have been elevated. Gastroenterology is also following the patient. He underwent a liver ultrasound this morning and report is pending. A CAT scan of the abdomen pelvis also ordered. Patient has been on vancomycin and meropenem was added by ID. Urine culture has been finalized with no growth and blood culture showing no growth at 72 hours. 08/05/2018 patient is definitely feeling better today. His fever has resolved. Some difficulty with swallowing is uncomfortable. But otherwise has no other acute complaints. 08/06/2018 patient transferred to oncology unit to begin his next course of chemotherapy for persistent AML 08/07/2018 patient is feeling somewhat better today. Temperature maximum 100.9. His shortness of breath is improving. He is relating since initiating his chemotherapy yesterday he does seem to be feeling better. Objective - Vital Signs Vital signs: Vital Signs Temp 98.3 F 08/07/18 19:48 Pulse 81 08/07/18 19:48 Resp 36 H 08/07/18 19:48 BP 97/53 08/07/18 19:48 Pulse Ox 99 08/07/18 19:48 Intake & Output 08/07/18 08/07/18 08/08/18 06:59 18:59 06:59 Intake Total 390 400 Output Total 2 Balance 390 398 Weight 72.5 kg Intake: Intake, IV Titration 390 Amount Meropenem 1 gm In Sodium 100 Chloride 0.9% 100 ml @ 200 mls/hr IVPB Q8HR [facility] Rx#:[id number] Vancomycin 1,250 mg In 250 Sodium Chloride 0.9% 250 ml @ 125 mls/hr IVPB Q12H [facility] Rx#:[id number] azaCITIDine 140 mg In 40 Sodium Chloride 0.9% 100 ml @ 684 mls/hr IV Q24H [facility] Rx#:[id number] Oral 400 Output: Stool 2 Other: Voiding Method Urinal Urinal Diaper Diaper Incontinent Incontinent # Voids 2 - Exam Gen: This is a thin 62-year-old male. He is resting in bed and sleeping and awakens easily to verbal stimuli. HEENT: Head is atraumatic, normocephalic. Pupils equal, round. Sclerae is anic teric. Oral mucous membranes are dry but without thrush but oral cavity remains uncomfortable. Patient is essentially edentulous with 1 lone tooth on top mid front. NECK: Supple. No JVD. No thyromegaly. LUNGS: Scattered rhonchi and bibasilar rales. Congestive moist cough noted. No intercostal retractions. HEART: Regular rate and rhythm. No murmur. Tachycardic. ABDOMEN: Soft. Bowel sounds are present. No masses. No tenderness. No right upper quadrant tenderness. EXTREMITIES: No pedal edema. No calf tenderness. Dorsalis pedis are +1 bilaterally. NEUROLOGICAL: Patient is awake, alert and oriented x3 - Labs CBC & Chem 7: 08/07/18 06:29 08/07/18 06:29 Labs: Abnormal Lab Results - Last 24 Hours (Table) 08/07/18 08/07/18 Range/Units 06:29 06:29 RBC 2.84 L (4.30-5.90) m/uL Hgb 7.7 L (13.0-17.5) gm/dL Hct 23.7 L (39.0-53.0) % RDW 17.9 H (11.5-15.5) % Plt Count 24 L (150-450) k/uL Blast Cells % 87 H* % Neutrophils # (Manual) 0.05 L* (1.3-7.7) k/uL Lymphocytes # (Manual) 0.25 L (1.0-4.8) k/uL Blast Cells # (Man) 4.26 H (0) k/uL Chloride 112 H (98-107) mmol/L Carbon Dioxide 20 L (22-30) mmol/L BUN 21 H (9-20) mg/dL Glucose 119 H (74-99) mg/dL Calcium 7.4 L (8.4-10.2) mg/dL AST 210 H (17-59) U/L ALT 279 H (21-72) U/L Alkaline Phosphatase 315 H (38-126) U/L Lactate Dehydrogenase 1135 H (313-618) U/L Total Protein 4.5 L (6.3-8.2) g/dL Albumin 2.1 L (3.5-5.0) g/dL Microbiology - Last 24 Hours (Table) 08/03/18 09:35 Blood Culture - Preliminary Blood No Growth after 96 hours 08/04/18 05:52 Blood Culture - Preliminary Blood No Growth after 72 hours 08/01/18 01:47 Blood Culture - Final Blood No Growth after 144 hours Laboratory Results WBC 4.9 k/uL (3.8-10.6) 08/07/18 06:29 RBC 2.84 m/uL (4.30-5.90) L 08/07/18 06:29 Hgb 7.7 gm/dL (13.0-17.5) L 08/07/18 06:29 Hct 23.7 % (39.0-53.0) L 08/07/18 06:29 MCV 83.4 fL (80.0-100.0) 08/07/18 06:29 MCH 27.1 pg (25.0-35.0) 08/07/18 06:29 MCHC 32.5 g/dL (31.0-37.0) 08/07/18 06:29 RDW 17.9 % (11.5-15.5) H 08/07/18 06:29 Plt Count 24 k/uL (150-450) L 08/07/18 06:29 Neutrophils % (Manual) 1 % 08/07/18 06:29 Lymphocytes % (Manual) 5 % 08/07/18 06:29 Monocytes % (Manual) 7 % 08/07/18 06:29 Blast Cells % 87 % H* 08/07/18 06:29 Neutrophils # [employer] 08/03/18 05:36 Neutrophils # (Manual) 0.05 k/uL (1.3-7.7) L* 08/07/18 06:29 Lymphocytes # (Manual) 0.25 k/uL (1.0-4.8) L 08/07/18 06:29 Monocytes # (Manual) 0.34 k/uL (0-1.0) 08/07/18 06:29 Blast Cells # (Man) 4.26 k/uL (0) H 08/07/18 06:29 Nucleated RBCs 0 /100 WBC (0-0) 08/07/18 06:29 Manual Slide Review Performed 08/07/18 06:29 Hypochromasia Moderate 08/01/18 10:42 Poikilocytosis Slight 08/04/18 05:52 Poikilocytosis (manual Present 08/03/18 05:36 Anisocytosis Slight 08/07/18 06:29 Microcytosis Slight 08/04/18 05:52 Fragmented RBCs Present 08/04/18 05:52 PT 13.1 sec (9.0-12.0) H 08/03/18 21:40 INR 1.3 (<1.2) H 08/03/18 21:40 APTT 31.8 sec (22.0-30.0) H 08/03/18 21:40 Sodium 137 mmol/L (137-145) 08/07/18 06:29 Potassium 3.8 mmol/L (3.5-5.1) 08/07/18 06:29 Chloride 112 mmol/L (98-107) H 08/07/18 06:29 Carbon Dioxide 20 mmol/L (22-30) L 08/07/18 06:29 Anion Gap 5 mmol/L 08/07/18 06:29 BUN 21 mg/dL (9-20) H 08/07/18 06:29 Creatinine 0.93 mg/dL (0.66-1.25) 08/07/18 06:29 Est GFR (CKD-EPI)AfAm >90 (>60 ml/min/1.73 sqM) 08/07/18 06:29 Est GFR (CKD-EPI)NonAf 87 (>60 ml/min/1.73 sqM) 08/07/18 06:29 Glucose 119 mg/dL (74-99) H 08/07/18 06:29 Lactic Ac Sepsis Rflx Y 07/31/18 21:43 Plasma Lactic Acid Jaylen 1.1 mmol/L (0.7-2.0) 08/03/18 09:35 Uric Acid 3.5 mg/dL (3.5-8.5) 08/07/18 06:29 Calcium 7.4 mg/dL (8.4-10.2) L 08/07/18 06:29 Phosphorus 3.2 mg/dL (2.5-4.5) 08/07/18 06:29 Magnesium 2.1 mg/dL (1.6-2.3) 08/07/18 06:29 Total Bilirubin 0.7 mg/dL (0.2-1.3) 08/07/18 06:29 AST 210 U/L (17-59) H 08/07/18 06:29 ALT 279 U/L (21-72) H 08/07/18 06:29 Alkaline Phosphatase 315 U/L (38-126) H 08/07/18 06:29 Lactate Dehydrogenase 1135 U/L (313-618) H 08/07/18 06:29 Troponin I 0.124 ng/mL (0.000-0.034) H* 08/02/18 13:50 NT-Pro-B Natriuret Pep 93573 pg/mL 08/02/18 07:58 Total Protein 4.5 g/dL (6.3-8.2) L 08/07/18 06:29 Albumin 2.1 g/dL (3.5-5.0) L 08/07/18 06:29 Urine Color Yellow 08/01/18 00:10 Urine Appearance Clear (Clear) 08/01/18 00:10 Urine pH 6.0 (5.0-8.0) 08/01/18 00:10 Ur Specific [place] 1.021 (1.001-1.035) 08/01/18 00:10 Urine Protein 1+ (Negative) H 08/01/18 00:10 Urine Glucose (UA) Negative (Negative) 08/01/18 00:10 Urine Ketones Negative (Negative) 08/01/18 00:10 Urine Blood Moderate (Negative) H 08/01/18 00:10 Urine Nitrite Negative (Negative) 08/01/18 00:10 Urine Bilirubin Negative (Negative) 08/01/18 00:10 Urine Urobilinogen 2.0 mg/dL (<2.0) 08/01/18 00:10 Ur Leukocyte Esterase Negative (Negative) 08/01/18 00:10 Urine RBC 1 /hpf (0-5) 08/01/18 00:10 Urine WBC 2 /hpf (0-5) 08/01/18 00:10 Urine Mucus Rare /hpf (None) H 08/01/18 00:10 Stool Occult Blood Positive (Negative) 08/01/18 00:00 Vancomycin Trough 19.5 ug/mL 08/06/18 09:45 Hepatitis A IgM Ab Non-Reactive (Non-Reactive) 08/04/18 05:52 Hep Bs Antigen Non-Reactive (Non-Reactive) 08/04/18 05:52 Hep B Core IgM Ab Non-Reactive (Non-Reactive) 08/04/18 05:52 Hep C IgG Ab Non-Reactive (Non-Reactive) 08/04/18 05:52 Blood Type A Negative 07/31/18 22:11 Blood Type Recheck No 07/31/18 22:11 Antibody Screen NEGATIVE 07/31/18 22:11 Crossmatch See Detail 07/31/18 22:11 Transfuse Platelets 08/05/2018 08/05/18 Unknown Spec Expiration Date 08/03/2018 - 231007/31/18 22:11 Microbiology 08/03/18 09:35 Blood Blood Culture - Preliminary No Growth after 96 hours 08/04/18 05:52 Blood Blood Culture - Preliminary No Growth after 72 hours 08/01/18 01:47 Blood Blood Culture - Final No Growth after 144 hours 08/01/18 00:10 Urine,Voided Urine Culture - Final Assessment and Plan (1) Acute myelogenous leukemia Narrative/Plan: 62-year-old male who has a history of AML who has not done well with his most recent course of chemotherapy. And hopefully will be able to start a new regimen to the near future. Comes in the hospital feeling ill with similar fever and elevation of his liver function tests. He does have evidence of some chronic cholecystitis without evidence of acute cholecystitis. Elevated AST and ALT potentially from current illness, recent medications most likely. However underlying infection of the biliary tract is not excluded at this time. Although his alkaline phosphatase is elevated the total bilirubin is normal. We'll expect the liver function tests will rapidly improve. In his fever improves with no evidence of bacteremia or other significant focus of infection, hopefully becomes a rapid candidate for chemotherapy for the treatment of his AML. Antibiotic therapy while cultures are process was initiated with meropenem and vancomycin given his history and concerns to biliary sepsis. 08/05/2018 patient still feels poorly. Slightly improved. Having no fever. Still difficulty ingesting food because the discomfort is oral cavity but no evidence of thrush or oral ulcerations. We'll continue current antibiotic therapy while cultures are processing. Fortunately negative so far. Likely the patient will start his chemotherapy tomorrow is a cultures are negative. It is likely that his current level of illness is related to his AML and increasing amounts of blasts in his peripheral smear. 08/06/2018 patient feels poorly. Is having some low-grade fever liken the basis of his current AML. To receive new course of chemotherapy starting today. Cultures are negative. Patient remains on the extensive antimicrobial coverage, I believe this will continue for now. Will re- culture if febrile. It continues to have fevers with transition antifungal therapy. 08/07/2018 patient is feeling better today. Temperature maximum 100.9. No other new symptoms. Has tolerated his first infusions of the new chemotherapy regimen well. Cultures are monitored and no positive cultures so far. Continue to monitor on current antibiotic therapy. We'll quickly enhance antifungal therapy if fevers recur. Current Visit: Yes Status: Acute Priority: High Code(s): C92.00 - ACUTE MYELOBLASTIC LEUKEMIA, NOT HAVING ACHIEVED REMISSION SNOMED Code(s): 10594089 (2) Elevated liver enzymes Current Visit: Yes Status: Acute Code(s): R74.8 - ABNORMAL LEVELS OF OTHER SERUM ENZYMES SNOMED Code(s): 061518835
--- NOTE | 2018-08-07 22:45 | P.PN ---
Subjective Progress Note Date: 08/07/18 Principal diagnosis: Acute myelogenous leukemia with fevers Mr. Nevarez is a 62-year-old gentleman admitted with severe symptomatic anemia. Patient has acute myelogenous leukemia with fevers. He is currently being followed by multiple consultants. He is on broad-spectrum antibiotics including meropenem and fluconazole. Patient had sustained V. tach which was believed to be secondary to hypomagnesemia. Patient has congestive heart failure with ejection fraction around 35%. He has severe leukocytosis. Today patient is lying in the bed. He is cachectic and chronically ill appearing. He has been transferred to the oncology floor yesterday and started on chemotherapy. Patient states that he still weak but feeling a little better today. He reports that his leukocytosis is improved and he is able to tolerate a small amount of his diet. He continues to have fever highest recorded over the past 24 hours is 100.9. Patient denies having any chest pain or difficulty in breathing. He denies having any abdominal pain nausea vomiting or diarrhea. No dysuria or hematuria. Denies having any headaches or blurring of his vision or focal weakness. Active Medications Acetaminophen (Tylenol Tab) 500 mg PO Q4H PRN PRN Reason: Mild Pain or Fever > 100.5 Last Admin: 08/07/18 12:46 Dose: 500 mg Documented by: Acyclovir (Zovirax) 400 mg PO BID [facility] Last Admin: 08/07/18 09:48 Dose: 400 mg Documented by: Albuterol/Ipratropium (Duoneb 0.5 Mg-3 Mg/3 Ml Soln) 3 ml INHALATION RT-QID PRN PRN Reason: Shortness Of Breath Or Wheezing Allopurinol (Zyloprim) 300 mg PO DAILY [facility] Last Admin: 08/07/18 09:49 Dose: 300 mg Documented by: Alprazolam (Xanax) 0.25 mg PO TID PRN PRN Reason: Anxiety Last Admin: 08/01/18 20:46 Dose: 0.25 mg Documented by: Ascorbic Acid (Vitamin C) 500 mg PO DAILY [facility] Last Admin: 08/07/18 10:37 Dose: 500 mg Documented by: Al Hydroxide/Mg Hydroxide 30 ml/ Lidocaine HCl 30 ml/Diphenhydramine HCl 75 mg/Nystatin 3,000,000 unit 0 ml PO TID@0600,1600,2200 [facility] Last Admin: 08/07/18 06:52 Dose: Not Given Documented by: Ferrous Sulfate (Feosol) 325 mg PO DAILY [facility] Last Admin: 08/07/18 09:49 Dose: 325 mg Documented by: Fluconazole (Diflucan) 200 mg PO DAILY [facility] Last Admin: 08/07/18 10:37 Dose: 200 mg Documented by: Folic Acid (Folic Acid) 1 mg PO DAILY [facility] Last Admin: 08/07/18 10:37 Dose: 1 mg Documented by: Hydromorphone HCl (Dilaudid) 0.5 mg IVP Q6HR PRN PRN Reason: Severe Pain Meropenem 1 gm/ Sodium (Chloride) 100 mls @ 200 mls/hr IVPB Q8HR [facility]; Protocol Last Admin: 08/07/18 14:48 Dose: 200 mls/hr Documented by: Vancomycin HCl 1,250 mg/ (Sodium Chloride) 250 mls @ 125 mls/hr IVPB Q12H [facility] Last Admin: 08/07/18 10:34 Dose: 125 mls/hr Documented by: Azacitidine 140 mg/ Sodium (Chloride) 114 mls @ 684 mls/hr IV Q24H [facility] Stop: 08/12/18 14:09 Last Admin: 08/07/18 15:26 Dose: 684 mls/hr Documented by: Ondansetron HCl 16 mg/ Sodium (Chloride) 58 mls @ 232 mls/hr IVPB Q24H [facility] Stop: 08/12/18 13:14 Last Admin: 08/07/18 14:48 Dose: 232 mls/hr Documented by: Metoprolol Succinate (Toprol Xl) 50 mg PO BID [facility] Last Admin: 08/07/18 10:37 Dose: 50 mg Documented by: Miscellaneous Information (Magnesium Per Protocol) 1 each MISCELLANE DAILY PRN; Protocol PRN Reason: Per Protocol Miscellaneous Information (Potassium Per Protocol) 1 each MISCELLANE DAILY PRN; Protocol PRN Reason: Per Protocol Miscellaneous Information (Potassium Per Protocol) 1 each MISCELLANE DAILY PRN; Protocol PRN Reason: Per Protocol Miscellaneous Information (Vancomycin Trough Due) 0 each MISCELLANE DIRECTED ONE Stop: 08/08/18 09:01 Naloxone HCl (Narcan) 0.2 mg IV Q2M PRN PRN Reason: Opioid Reversal Venetoclax ( (Venclexta) 100mg Tab) 4 each PO Q24H [facility] Last Admin: 08/07/18 14:51 Dose: 4 each Documented by: Ondansetron HCl (Zofran Odt) 4 mg PO Q6HR PRN PRN Reason: Nausea Pantoprazole Sodium (Protonix) 40 mg PO AC-BID [facility] Last Admin: 08/07/18 09:48 Dose: 40 mg Documented by: Potassium Chloride (K-Dur 20) 20 meq PO BID [facility] Last Admin: 08/07/18 10:38 Dose: Not Given Documented by: Tramadol HCl (Ultram) 50 mg PO Q6HR PRN PRN Reason: Moderate Pain Last Admin: 08/05/18 23:16 Dose: 50 mg Documented by: Objective - Vital Signs Vital signs: Vital Signs Temp 98.8 F 08/07/18 15:25 Pulse 72 08/07/18 15:25 Resp 19 08/07/18 15:25 BP 106/55 08/07/18 15:25 Pulse Ox 98 08/07/18 15:25 Intake & Output 08/06/18 08/07/18 08/07/18 18:59 06:59 18:59 Intake Total 390 400 Output Total 350 1 Balance -350 390 399 Weight 72.5 kg Intake: Intake, IV Titration 390 Amount Meropenem 1 gm In Sodium 100 Chloride 0.9% 100 ml @ 200 mls/hr IVPB Q8HR [facility] Rx#:[id number] Vancomycin 1,250 mg In 250 Sodium Chloride 0.9% 250 ml @ 125 mls/hr IVPB Q12H [facility] Rx#:[id number] azaCITIDine 140 mg In 40 Sodium Chloride 0.9% 100 ml @ 684 mls/hr IV Q24H [facility] Rx#:[id number] Oral 400 Output: Urine 350 Stool 1 Other: Voiding Method Urinal Urinal Urinal Diaper Diaper Diaper Incontinent Incontinent Incontinent # Voids 1 2 - Exam GENERAL: Cachectic and chronically ill appearing. Temporal wasting HEENT: Pallor positive. does have mucositis of the oral cavity. CARDIOVASCULAR: S1 and S2 present. No murmurs, rubs, or gallops. tachycardic PULMONARY: Bilateral expiratory wheezes. Diminished breath sounds at the lower lung [place]. ABDOMEN: Soft, nontender, nondistended, normoactive bowel sounds. No palpable organomegaly. MUSCULOSKELETAL: No joint swelling or deformity. EXTREMITIES: No cyanosis, clubbing, or pedal edema. NEUROLOGICAL: Gross neurological examination did not reveal any focal deficits. - Labs CBC & Chem 7: 08/07/18 06:29 08/07/18 06:29 Labs: Abnormal Lab Results - Last 24 Hours (Table) 08/07/18 08/07/18 Range/Units 06:29 06:29 RBC 2.84 L (4.30-5.90) m/uL Hgb 7.7 L (13.0-17.5) gm/dL Hct 23.7 L (39.0-53.0) % RDW 17.9 H (11.5-15.5) % Plt Count 24 L (150-450) k/uL Blast Cells % 87 H* % Neutrophils # (Manual) 0.05 L* (1.3-7.7) k/uL Lymphocytes # (Manual) 0.25 L (1.0-4.8) k/uL Blast Cells # (Man) 4.26 H (0) k/uL Chloride 112 H (98-107) mmol/L Carbon Dioxide 20 L (22-30) mmol/L BUN 21 H (9-20) mg/dL Glucose 119 H (74-99) mg/dL Calcium 7.4 L (8.4-10.2) mg/dL AST 210 H (17-59) U/L ALT 279 H (21-72) U/L Alkaline Phosphatase 315 H (38-126) U/L Lactate Dehydrogenase 1135 H (313-618) U/L Total Protein 4.5 L (6.3-8.2) g/dL Albumin 2.1 L (3.5-5.0) g/dL Microbiology - Last 24 Hours (Table) 08/03/18 09:35 Blood Culture - Preliminary Blood No Growth after 96 hours 08/04/18 05:52 Blood Culture - Preliminary Blood No Growth after 72 hours 08/01/18 01:47 Blood Culture - Final Blood No Growth after 144 hours Assessment and Plan Assessment: ASSESSMENT Pancytopenia Acute myelogenous leukemia Elevated liver function tests Generalized weakness Fever Congestive heart failure - chronic systolic with ejection fraction of 35%-not in exacerbation Sustained V. tach - possibilities of torsade due to hypomagnesemia PLAN: Patient has been started on chemotherapy by oncology yesterday. Patient showed significant improvement in his cell lines. He reports improvement in his mucositosis. Nystatin swish and swallow has been ordered. Continue with fluco nazole and meropenem. Blood cultures and urine cultures no growth so far. Overall prognosis is poor. Further recommendations to follow depending on the progress of the patient.
[2018-08-08] MEDS: ACETAMINOPHEN TAB 500 MG TAB PO PRN ×3 (01:02→21:09)
[2018-08-08] MEDS: traMADol 50 MG TAB PO PRN ×2 (04:19→19:27)
[2018-08-08] MEDS: MAG HYDROX/AL HYDROX/SIMETH 30 ML, LIDOCAINE VISCOUS 30 ML, diphenhydrAMINE ELIXIR 75 M... PO SCH ×16 (04:19→23:48)
[2018-08-08 07:43] LABS: Anisocytosis Slight; HCT 22.2 % (39.0-53.0); HGB 7.4 gm/dL (13.0-17.5); MCHC 33.5 g/dL (31.0-37.0); MCV 83.7 fL (80.0-100.0); Mean Platelet Volume 8.4; RBC 2.65 m/uL (4.30-5.90); RDW 17.7 % (11.5-15.5)
[2018-08-08 07:44] LABS: ALT 260 U/L (21-72); AST 194 U/L (17-59); Albumin 2.1 g/dL (3.5-5.0); Alkaline Phosphatase 313 U/L (38-126); Anion Gap 3 mmol/L; Blood Urea Nitrogen 20 mg/dL (9-20); Calcium 7.3 mg/dL (8.4-10.2); Carbon Dioxide 23 mmol/L (22-30); Chloride 113 mmol/L (98-107); Glucose 94 mg/dL (74-99); LDH 1116 U/L (313-618); Magnesium 2.2 mg/dL (1.6-2.3); Phosphorus 2.8 mg/dL (2.5-4.5); Potassium 4.1 mmol/L (3.5-5.1); Sodium 139 mmol/L (137-145); Total Protein 4.5 g/dL (6.3-8.2)
[2018-08-08 08:10] LABS: Platelet Count 13 k/uL (150-450); WBC 0.8 k/uL (3.8-10.6)
[2018-08-08] MEDS: PANTOPRAZOLE 40 MG TABLET PO SCH ×2 (08:35→18:18)
[2018-08-08] MEDS: FERROUS SULFATE 325 MG TAB PO SCH (08:35)
[2018-08-08] MEDS: ALLOPURINOL 300 MG TAB PO SCH (08:35)
[2018-08-08] MEDS: POTASSIUM CHLORIDE ER 20 MEQ TAB.ER PO SCH ×2 (08:35→21:09)
[2018-08-08] MEDS: MEROPENEM 1 GM in SODIUM CHLORIDE 0.9% 100 ML IVPB SCH ×3 (08:35→23:48)
[2018-08-08] MEDS: ACYCLOVIR 200 MG CAP PO SCH ×2 (08:36→21:09)
[2018-08-08] MEDS: METOPROLOL SUCCINATE (ER) 50 MG TAB.ER.24H PO SCH ×2 (08:37→21:09)
[2018-08-08] MEDS: FLUCONAZOLE 100 MG TAB PO SCH (08:37)
[2018-08-08] MEDS: ASCORBIC ACID 500 MG TAB PO SCH (08:37)
[2018-08-08] MEDS: FOLIC ACID 1 MG TAB PO SCH (08:37)
[2018-08-08] MEDS ORDERED: VANCOMYCIN TROUGH DUE 1 EACH MISC MISCELLANE ONE (09:00)
[2018-08-08] MEDS: VANCOMYCIN 1,250 MG in SODIUM CHLORIDE 0.9% 250 ML IVPB SCH ×2 (11:22→21:10)
[2018-08-08] MEDS: VENETOCLAX 100 MG PO SCH (14:14)
[2018-08-08] MEDS: ONDANSETRON 16 MG in SODIUM CHLORIDE 0.9% 50 ML IVPB SCH (14:14)
--- NOTE | 2018-08-08 15:44 | P.PN ---
Subjective Progress Note Date: 08/08/18 Principal diagnosis: Acute myelogenous leukemia with fevers Mr. Nevarez is a 62-year-old gentleman admitted with severe symptomatic anemia. Patient has acute myelogenous leukemia with fevers. He is currently being followed by multiple consultants. He is on broad-spectrum antibiotics including meropenem and fluconazole. Patient had sustained V. tach which was believed to be secondary to hypomagnesemia. Patient has congestive heart failure with ejection fraction around 35%. He has severe leukocytosis. On 08/07/18 -Today patient is lying in the bed. He is cachectic and chronically ill appearing. He has been transferred to the oncology floor yesterday and started on chemotherapy. Patient states that he still weak but feeling a little better today. He reports that his leukocytosis is improved and he is able to tolerate a small amount of his diet. He continues to have fevers, highest recorded over the past 24 hours is 100.9. Patient denies having any chest pain or difficulty in breathing. He denies having any abdominal pain nausea vomiting or diarrhea. No dysuria or hematuria. Denies having any headaches or blurring of his vision or focal weakness. On 08/08/18 - patient is lying in bed. He states overall he is improving. He is cachectic. Appears to be no acute distress. Chemotherapy has been initiated by oncology team, Dr. Raymond villafana. His been tolerating okay. Patient states his appetite is still bad and he is not able to eat much. On review of systems - constitutional- history unless weakness and fatigue. No chest pain or palpitations. No cough or difficulty in breathing. No abdominal pain nausea vomiting or diarrhea. No dysuria or hematuria. Active Medications Acetaminophen (Tylenol Tab) 500 mg PO Q4H PRN PRN Reason: Mild Pain or Fever > 100.5 Last Admin: 08/08/18 01:02 Dose: 500 mg Documented by: Acyclovir (Zovirax) 400 mg PO BID [facility] Last Admin: 08/08/18 08:36 Dose: 400 mg Documented by: Albuterol/Ipratropium (Duoneb 0.5 Mg-3 Mg/3 Ml Soln) 3 ml INHALATION RT-QID PRN PRN Reason: Shortness Of Breath Or Wheezing Allopurinol (Zyloprim) 300 mg PO DAILY [facility] Last Admin: 08/08/18 08:35 Dose: 300 mg Documented by: Alprazolam (Xanax) 0.25 mg PO TID PRN PRN Reason: Anxiety Last Admin: 08/01/18 20:46 Dose: 0.25 mg Documented by: Ascorbic Acid (Vitamin C) 500 mg PO DAILY [facility] Last Admin: 08/08/18 08:37 Dose: 500 mg Documented by: Al Hydroxide/Mg Hydroxide 30 ml/ Lidocaine HCl 30 ml/Diphenhydramine HCl 75 mg/Nystatin 3,000,000 unit 0 ml PO TID@0600,1600,2200 [facility] Last Admin: 08/08/18 04:19 Dose: 5 ml Documented by: Ferrous Sulfate (Feosol) 325 mg PO DAILY [facility] Last Admin: 08/08/18 08:35 Dose: 325 mg Documented by: Fluconazole (Diflucan) 200 mg PO DAILY [facility] Last Admin: 08/08/18 08:37 Dose: 200 mg Documented by: Folic Acid (Folic Acid) 1 mg PO DAILY [facility] Last Admin: 08/08/18 08:37 Dose: 1 mg Documented by: Hydromorphone HCl (Dilaudid) 0.5 mg IVP Q6HR PRN PRN Reason: Severe Pain Meropenem 1 gm/ Sodium (Chloride) 100 mls @ 200 mls/hr IVPB Q8HR [facility]; Protocol Last Admin: 08/08/18 08:35 Dose: 200 mls/hr Documented by: Vancomycin HCl 1,250 mg/ (Sodium Chloride) 250 mls @ 125 mls/hr IVPB Q12H [facility] Last Admin: 08/08/18 11:22 Dose: 125 mls/hr Documented by: Azacitidine 140 mg/ Sodium (Chloride) 114 mls @ 684 mls/hr IV Q24H [facility] Stop: 08/12/18 14:09 Last Admin: 08/08/18 15:33 Dose: 684 mls/hr Documented by: Ondansetron HCl 16 mg/ Sodium (Chloride) 58 mls @ 232 mls/hr IVPB Q24H [facility] Stop: 08/12/18 13:14 Last Admin: 08/08/18 14:14 Dose: 232 mls/hr Documented by: Metoprolol Succinate (Toprol Xl) 50 mg PO BID [facility] Last Admin: 08/08/18 08:37 Dose: 50 mg Documented by: Miscellaneous Information (Magnesium Per Protocol) 1 each MISCELLANE DAILY PRN; Protocol PRN Reason: Per Protocol Miscellaneous Information (Potassium Per Protocol) 1 each MISCELLANE DAILY PRN; Protocol PRN Reason: Per Protocol Miscellaneous Information (Potassium Per Protocol) 1 each MISCELLANE DAILY PRN; Protocol PRN Reason: Per Protocol Naloxone HCl (Narcan) 0.2 mg IV Q2M PRN PRN Reason: Opioid Reversal Venetoclax ( (Venclexta) 100mg Tab) 4 each PO Q24H [facility] Last Admin: 08/08/18 14:14 Dose: 4 each Documented by: Ondansetron HCl (Zofran Odt) 4 mg PO Q6HR PRN PRN Reason: Nausea Pantoprazole Sodium (Protonix) 40 mg PO AC-BID [facility] Last Admin: 08/08/18 08:35 Dose: 40 mg Documented by: Potassium Chloride (K-Dur 20) 20 meq PO BID [facility] Last Admin: 08/08/18 08:35 Dose: 20 meq Documented by: Tramadol HCl (Ultram) 50 mg PO Q6HR PRN PRN Reason: Moderate Pain Last Admin: 08/08/18 04:19 Dose: 50 mg Documented by: Objective - Vital Signs Vital signs: Vital Signs Temp 99.8 F H 08/08/18 11:41 Pulse 91 08/08/18 11:41 Resp 20 08/08/18 11:41 BP 87/55 08/08/18 11:41 Pulse Ox 95 08/08/18 11:41 Intake & Output 08/07/18 08/08/18 08/08/18 18:59 06:59 18:59 Intake Total 400 1140 700 Output Total 2 500 1000 Balance 398 640 -300 Weight 72 kg Intake: Intake, IV Titration 550 350 Amount Meropenem 1 gm In Sodium 100 Chloride 0.9% 100 ml @ 200 mls/hr IVPB Q8HR [facility] Rx#:[id number] Sodium Chloride 0.9% 1, 300 000 ml @ 75 mls/hr IV . [id number] [facility] Rx#:[id number] Vancomycin 1,250 mg In 250 250 Sodium Chloride 0.9% 250 ml @ 125 mls/hr IVPB Q12H [facility] Rx#:[id number] Oral 400 590 350 Output: Urine 500 1000 Stool 2 Other: Voiding Method Urinal Urinal Urinal Diaper Incontinent # Voids 2 1 - Exam GENERAL: Cachectic and chronically ill appearing. Temporal wasting HEENT: Pallor positive. does have mucositis of the oral cavity. CARDIOVASCULAR: S1 and S2 present. No murmurs, rubs, or gallops. tachycardic PULMONARY: Bilateral expiratory wheezes. Diminished breath sounds at the lower lung tristan. ABDOMEN: Soft, nontender, nondistended, normoactive bowel sounds. No palpable organomegaly. MUSCULOSKELETAL: No joint swelling or deformity. EXTREMITIES: No cyanosis, clubbing, or pedal edema. NEUROLOGICAL: Gross neurological examination did not reveal any focal deficits. - Labs CBC & Chem 7: 08/08/18 06:50 08/08/18 06:50 Labs: Abnormal Lab Results - Last 24 Hours (Table) 08/08/18 08/08/18 Range/Units 06:50 06:50 WBC 0.8 L* (3.8-10.6) k/uL RBC 2.65 L (4.30-5.90) m/uL Hgb 7.4 L (13.0-17.5) gm/dL Hct 22.2 L (39.0-53.0) % RDW 17.7 H (11.5-15.5) % Plt Count 13 L* (150-450) k/uL Chloride 113 H (98-107) mmol/L Uric Acid 3.0 L (3.5-8.5) mg/dL Calcium 7.3 L (8.4-10.2) mg/dL AST 194 H (17-59) U/L ALT 260 H (21-72) U/L Alkaline Phosphatase 313 H (38-126) U/L Lactate Dehydrogenase 1116 H (313-618) U/L Total Protein 4.5 L (6.3-8.2) g/dL Albumin 2.1 L (3.5-5.0) g/dL Microbiology - Last 24 Hours (Table) 08/03/18 09:35 Blood Culture - Preliminary Blood No Growth after 120 hours 08/04/18 05:52 Blood Culture - Preliminary Blood No Growth after 96 hours Assessment and Plan Assessment: ASSESSMENT Pancytopenia Acute myelogenous leukemia Elevated liver function tests Generalized weakness Fever Congestive heart failure - chronic systolic with ejection fraction of 35%-not in exacerbation Sustained V. tach - possibilities of torsade due to hypomagnesemia PLAN: Patient has been started on chemotherapy by oncology yesterday. Patient showed significant improvement in his cell lines. He reports improvement in his mucositosis. Continue with fluconazole, vancomycin and meropenem. Blood cultures and urine cultures no growth so far. Spoke with Dr. Andrade regarding the pt's progress, he thinks acutely the pt showed improvement. But overall prognosis is still poor. Further recommendations to follow depending on the progress of the patient.
--- NOTE | 2018-08-08 15:50 | P.PN ---
Subjective Progress Note Date: 08/08/18 The patient denies any new complaints today, other than development of some soreness around the upper gums. He is had no obvious bleeding. No fevers or chills. He denies any diarrhea. Appetite appears to be slowly improving. Generally he feels slightly better. Objective - Vital Signs Vital signs: Vital Signs Temp 100.6 F H 08/08/18 15:43 Pulse 99 08/08/18 15:43 Resp 20 08/08/18 15:43 BP 121/57 08/08/18 15:43 Pulse Ox 99 08/08/18 15:43 Intake & Output 08/07/18 08/08/18 08/08/18 18:59 06:59 18:59 Intake Total 400 1140 700 Output Total 2 500 1000 Balance 398 640 -300 Weight 72 kg Intake: Intake, IV Titration 550 350 Amount Meropenem 1 gm In Sodium 100 Chloride 0.9% 100 ml @ 200 mls/hr IVPB Q8HR [facility] Rx#:[id number] Sodium Chloride 0.9% 1, 300 000 ml @ 75 mls/hr IV . [id number] [facility] Rx#:[id number] Vancomycin 1,250 mg In 250 250 Sodium Chloride 0.9% 250 ml @ 125 mls/hr IVPB Q12H [facility] Rx#:[id number] Oral 400 590 350 Output: Urine 500 1000 Stool 2 Other: Voiding Method Urinal Urinal Urinal Diaper Incontinent # Voids 2 1 - Constitutional General appearance: Present: no acute distress - EENT EENT Comment(s): Edentulous. 2-3 areas of developing mucositis on the upper gum Eyes: Present: EOMI ENT: Present: hearing grossly normal - Respiratory Respiratory: bilateral: CTA - Cardiovascular Rhythm: regular Heart sounds: normal: S1, S2 - Gastrointestinal General gastrointestinal: Present: normal bowel sounds, soft - Integumentary Integumentary: Present: normal - Neurologic Neurologic: Present: CNII-XII intact - Musculoskeletal Musculoskeletal: Present: generalized weakness, strength equal bilaterally - Psychiatric Psychiatric: Present: A&O x's 3, appropriate affect - Labs CBC & Chem 7: 08/08/18 06:50 08/08/18 06:50 Labs: Abnormal Lab Results - Last 24 Hours (Table) 08/08/18 08/08/18 Range/Units 06:50 06:50 WBC 0.8 L* (3.8-10.6) k/uL RBC 2.65 L (4.30-5.90) m/uL Hgb 7.4 L (13.0-17.5) gm/dL Hct 22.2 L (39.0-53.0) % RDW 17.7 H (11.5-15.5) % Plt Count 13 L* (150-450) k/uL Chloride 113 H (98-107) mmol/L Uric Acid 3.0 L (3.5-8.5) mg/dL Calcium 7.3 L (8.4-10.2) mg/dL AST 194 H (17-59) U/L ALT 260 H (21-72) U/L Alkaline Phosphatase 313 H (38-126) U/L Lactate Dehydrogenase 1116 H (313-618) U/L Total Protein 4.5 L (6.3-8.2) g/dL Albumin 2.1 L (3.5-5.0) g/dL Microbiology - Last 24 Hours (Table) 08/03/18 09:35 Blood Culture - Preliminary Blood No Growth after 120 hours 08/04/18 05:52 Blood Culture - Preliminary Blood No Growth after 96 hours Assessment and Plan (1) Acute myelogenous leukemia Narrative/Plan: The patient had developed rapidly progressive disease with significant blasts appearing in the peripheral blood. This was associated with increasing symptoms. He was therefore started on salvage treatment in patient with Vidaza, and oral Venetoclax. He is on day #3 of cycle 1. He actually appears to be having a response, with decrease in WBC to 0.8, and improvement in his symptoms. - Continue treatment per protocol. - No evidence of tumor lysis. He is on allopurinol. Continue to monitor with physical exams, and labs which have been ordered. - Plan discussed with IM. Current Visit: Yes Status: Acute Priority: High Code(s): C92.00 - ACUTE MYELOBLASTIC LEUKEMIA, NOT HAVING ACHIEVED REMISSION SNOMED Code(s): 47334920 (2) Pancytopenia Narrative/Plan: WBC is reduced, which is the desired effect of his ongoing treatment. Hemoglobin and platelets are in a safe range. Continue to monitor and transfuse as needed for hemoglobin less than 7 and platelets less than 10 as long as the patient is not actively bleeding Current Visit: Yes Status: Acute Priority: High Code(s): D61.818 - OTHER PANCYTOPENIA SNOMED Code(s): 594385278 (3) Weakness Current Visit: Yes Status: Acute Code(s): R53.1 - WEAKNESS SNOMED Code(s): 48761828 (4) Neutropenia with fever Narrative/Plan: Neutropenia persists, and is not expected to improve in the short-term. Cultures are negative on IV antibiotics. Continue antibiotics per ID. At the completion of Vidaza, if cultures are negative and the patient remains afebrile, we will discuss with ID regarding an outpatient oral regimen for discharge Current Visit: No Status: Acute Code(s): D70.9 - NEUTROPENIA, UNSPECIFIED; R50.81 - FEVER PRESENTING WITH CONDITIONS CLASSIFIED ELSEWHERE SNOMED Code(s): 811050884
[2018-08-09] MEDS: MAG HYDROX/AL HYDROX/SIMETH 30 ML, LIDOCAINE VISCOUS 30 ML, diphenhydrAMINE ELIXIR 75 M... PO SCH ×20 (04:57→21:46)
[2018-08-09 07:42] LABS: Anisocytosis Slight; HCT 22.7 % (39.0-53.0); HGB 7.4 gm/dL (13.0-17.5); MCH 27.3 pg (25.0-35.0); MCHC 32.5 g/dL (31.0-37.0); MCV 84.1 fL (80.0-100.0); Mean Platelet Volume 7.9; RDW 17.7 % (11.5-15.5)
[2018-08-09 07:49] LABS: Platelet Count 11 k/uL (150-450); WBC 0.5 k/uL (3.8-10.6)
[2018-08-09] MEDS: traMADol 50 MG TAB PO PRN (08:12)
[2018-08-09] MEDS: MEROPENEM 1 GM in SODIUM CHLORIDE 0.9% 100 ML IVPB SCH ×2 (08:14→16:49)
[2018-08-09] MEDS: ALLOPURINOL 300 MG TAB PO SCH (08:15)
[2018-08-09] MEDS: FERROUS SULFATE 325 MG TAB PO SCH (08:15)
[2018-08-09] MEDS: ASCORBIC ACID 500 MG TAB PO SCH (08:15)
[2018-08-09] MEDS: ACYCLOVIR 200 MG CAP PO SCH ×2 (08:15→21:46)
[2018-08-09] MEDS: PANTOPRAZOLE 40 MG TABLET PO SCH ×2 (08:15→16:50)
[2018-08-09] MEDS: FOLIC ACID 1 MG TAB PO SCH (08:16)
[2018-08-09] MEDS: METOPROLOL SUCCINATE (ER) 50 MG TAB.ER.24H PO SCH ×2 (08:16→21:47)
[2018-08-09] MEDS: FLUCONAZOLE 100 MG TAB PO SCH (08:16)
[2018-08-09] MEDS: POTASSIUM CHLORIDE ER 20 MEQ TAB.ER PO SCH ×2 (08:17→21:46)
[2018-08-09] MEDS: VANCOMYCIN 1,250 MG in SODIUM CHLORIDE 0.9% 250 ML IVPB SCH ×2 (10:33→21:48)
[2018-08-09 11:33] LABS: ALT 302 U/L (21-72); AST 209 U/L (17-59); Albumin 2.3 g/dL (3.5-5.0); Alkaline Phosphatase 459 U/L (38-126); Anion Gap 2 mmol/L; Blood Urea Nitrogen 20 mg/dL (9-20); Calcium 7.8 mg/dL (8.4-10.2); Carbon Dioxide 23 mmol/L (22-30); Chloride 113 mmol/L (98-107); Glucose 88 mg/dL (74-99); LDH 1048 U/L (313-618); Magnesium 2.2 mg/dL (1.6-2.3); Phosphorus 2.1 mg/dL (2.5-4.5); Potassium 4.4 mmol/L (3.5-5.1); Sodium 138 mmol/L (137-145); Total Protein 4.8 g/dL (6.3-8.2); Uric Acid 2.5 mg/dL (3.5-8.5)
[2018-08-09] MEDS: ONDANSETRON 16 MG in SODIUM CHLORIDE 0.9% 50 ML IVPB SCH (14:07)
[2018-08-09] MEDS: VENETOCLAX 100 MG PO SCH (14:39)
--- NOTE | 2018-08-09 15:00 | P.PN ---
Subjective Progress Note Date: 08/09/18 Principal diagnosis: Acute myelogenous leukemia with fevers Mr. Nevarez is a 62-year-old gentleman admitted with severe symptomatic anemia. Patient has acute myelogenous leukemia with fevers. He is currently being followed by multiple consultants. He is on broad-spectrum antibiotics including meropenem and fluconazole. Patient had sustained V. tach which was believed to be secondary to hypomagnesemia. Patient has congestive heart failure with ejection fraction around 35%. He has severe leukocytosis. On 08/07/18 -Today patient is lying in the bed. He is cachectic and chronically ill appearing. He has been transferred to the oncology floor yesterday and started on chemotherapy. Patient states that he still weak but feeling a little better today. He reports that his leukocytosis is improved and he is able to tolerate a small amount of his diet. He continues to have fevers, highest recorded over the past 24 hours is 100.9. Patient denies having any chest pain or difficulty in breathing. He denies having any abdominal pain nausea vomiting or diarrhea. No dysuria or hematuria. Denies having any headaches or blurring of his vision or focal weakness. On 08/08/18 - patient is lying in bed. He states overall he is improving. He is cachectic. Appears to be no acute distress. Chemotherapy has been initiated by oncology team, Dr. Raymond villafana. His been tolerating okay. Patient states his appetite is still bad and he is not able to eat much. On 08/09/18 - patient is lying in bed. Appears to be no acute distress. As per the nursing staff report, patient's appetite is much better. Patient also reports that his oral mucosa is less painful and that he is able to eat more. Overall patient reports feeling much better. Patient is getting his emotherapy-day 4 today. On review of systems - constitutional- history unless weakness and fatigue. No chest pain or palpitations. No cough or difficulty in breathing. No abdominal pain nausea vomiting or diarrhea. No dysuria or hematuria. Patient's medications have been reviewed Objective - Vital Signs Vital signs: Vital Signs Temp 98.4 F 08/09/18 12:00 Pulse 97 08/09/18 12:00 Resp 18 08/09/18 12:00 BP 107/58 08/09/18 12:00 Pulse Ox 97 08/09/18 12:00 Intake & Output 08/08/18 08/09/18 08/09/18 18:59 06:59 18:59 Intake Total 700 250 Output Total 1250 602 Balance -550 -352 Weight 72.5 kg Intake: Intake, IV Titration 350 250 Amount Meropenem 1 gm In Sodium 100 Chloride 0.9% 100 ml @ 200 mls/hr IVPB Q8HR [facility] Rx#:[id number] Vancomycin 1,250 mg In 250 250 Sodium Chloride 0.9% 250 ml @ 125 mls/hr IVPB Q12H [facility] Rx#:[id number] Oral 350 Output: Urine 1250 600 Stool 2 Other: Voiding Method Urinal Urinal Urinal Diaper Incontinent # Voids 1 1 - Exam GENERAL: Cachectic and chronically ill appearing. Temporal wasting HEENT: Pallor positive. Oral mucosa looks much better compared to couple of days back. CARDIOVASCULAR: S1 and S2 present. No murmurs, rubs, or gallops. tachycardic PULMONARY: Bilateral expiratory wheezes. Diminished breath sounds at the lower lung tristan. ABDOMEN: Soft, nontender, nondistended, normoactive bowel sounds. No palpable organomegaly. MUSCULOSKELETAL: No joint swelling or deformity. EXTREMITIES: No cyanosis, clubbing, or pedal edema. NEUROLOGICAL: Gross neurological examination did not reveal any focal deficits. - Labs CBC & Chem 7: 08/09/18 07:13 08/09/18 07:13 Labs: Abnormal Lab Results - Last 24 Hours (Table) 08/09/18 08/09/18 Range/Units 07:13 07:13 WBC 0.5 L* (3.8-10.6) k/uL RBC 2.70 L (4.30-5.90) m/uL Hgb 7.4 L (13.0-17.5) gm/dL Hct 22.7 L (39.0-53.0) % RDW 17.7 H (11.5-15.5) % Plt Count 11 L* (150-450) k/uL Chloride 113 H (98-107) mmol/L Uric Acid 2.5 L (3.5-8.5) mg/dL Calcium 7.8 L (8.4-10.2) mg/dL Phosphorus 2.1 L (2.5-4.5) mg/dL AST 209 H (17-59) U/L ALT 302 H (21-72) U/L Alkaline Phosphatase 459 H (38-126) U/L Lactate Dehydrogenase 1048 H (313-618) U/L Total Protein 4.8 L (6.3-8.2) g/dL Albumin 2.3 L (3.5-5.0) g/dL Microbiology - Last 24 Hours (Table) 08/03/18 09:35 Blood Culture - Final Blood No Growth after 144 hours 08/04/18 05:52 Blood Culture - Preliminary Blood No Growth after 120 hours Assessment and Plan Assessment: ASSESSMENT Pancytopenia Acute myelogenous leukemia Elevated liver function tests Generalized weakness Fever Congestive heart failure - chronic systolic with ejection fraction of 35%-not in exacerbation Sustained V. tach - possibilities of torsade due to hypomagnesemia PLAN: Patient has been started on chemotherapy by oncology - day 4 today. Patient showed significant improvement in his cell lines. And patient reports that he feels better overall. Continue with fluconazole, vancomycin and meropenem. Blood cultures and urine cultures no growth so far. But overall prognosis is still poor. Further recommendations to follow depending on the progress of the patient.
--- NOTE | 2018-08-09 15:03 | P.PN ---
Subjective Progress Note Date: 08/09/18 Principal diagnosis: Acute myeloid leukemia In follow-up today patient looks significantly better than when I last saw him. Patient is able to sit up in bed independently, he has been eating and drinking fairly well, no nausea, vomiting, fevers, difficulty breathing, abdominal pain, he is experiencing discomfort in the coccyx area secondary to pressure, no swelling, bleeding or other pain to report. Objective - Vital Signs Vital signs: Vital Signs Temp 98.4 F 08/09/18 12:00 Pulse 97 08/09/18 12:00 Resp 18 08/09/18 12:00 BP 107/58 08/09/18 12:00 Pulse Ox 97 08/09/18 12:00 Intake & Output 08/08/18 08/09/18 08/09/18 18:59 06:59 18:59 Intake Total 700 250 Output Total 1250 602 Balance -550 -352 Weight 72.5 kg Intake: Intake, IV Titration 350 250 Amount Meropenem 1 gm In Sodium 100 Chloride 0.9% 100 ml @ 200 mls/hr IVPB Q8HR [facility] Rx#:[id number] Vancomycin 1,250 mg In 250 250 Sodium Chloride 0.9% 250 ml @ 125 mls/hr IVPB Q12H [facility] Rx#:[id number] Oral 350 Output: Urine 1250 600 Stool 2 Other: Voiding Method Urinal Urinal Urinal Diaper Incontinent # Voids 1 1 - Constitutional Constitutional Comment(s): Frail, cachectic, muscle wasting, surprisingly better color than last visit, more alert and interactive General appearance: Present: thin - EENT Eyes: Present: anicteric sclerae, EOMI, poor dentition ENT: Present: hearing grossly normal, normal oropharynx - Respiratory Respiratory: bilateral: CTA, diminished - Cardiovascular Rhythm: regular Heart sounds: normal: S1, S2 Abnormal Heart Sounds: Absent: systolic murmur, diastolic murmur, rub, S3 Gallop, S4 Gallop, click, other - Peripheral edema leg Peripheral Edema: bilateral: Trace - Gastrointestinal General gastrointestinal: Present: normal bowel sounds, soft. Absent: absent bowel sounds, decreased bowel sounds, distended, hepatomegaly, hyperactive bowel sounds, organomegaly, rigid, scaphoid, splenomegaly, tenderness, umbilical hernia, ventral hernia - Neurologic Neurologic: Present: CNII-XII intact - Musculoskeletal Musculoskeletal: Present: generalized weakness, strength equal bilaterally - Psychiatric Psychiatric: Present: A&O x's 3, appropriate affect, intact judgment & insight - Labs CBC & Chem 7: 08/09/18 07:13 08/09/18 07:13 Labs: Abnormal Lab Results - Last 24 Hours (Table) 08/09/18 08/09/18 Range/Units 07:13 07:13 WBC 0.5 L* (3.8-10.6) k/uL RBC 2.70 L (4.30-5.90) m/uL Hgb 7.4 L (13.0-17.5) gm/dL Hct 22.7 L (39.0-53.0) % RDW 17.7 H (11.5-15.5) % Plt Count 11 L* (150-450) k/uL Chloride 113 H (98-107) mmol/L Uric Acid 2.5 L (3.5-8.5) mg/dL Calcium 7.8 L (8.4-10.2) mg/dL Phosphorus 2.1 L (2.5-4.5) mg/dL AST 209 H (17-59) U/L ALT 302 H (21-72) U/L Alkaline Phosphatase 459 H (38-126) U/L Lactate Dehydrogenase 1048 H (313-618) U/L Total Protein 4.8 L (6.3-8.2) g/dL Albumin 2.3 L (3.5-5.0) g/dL Microbiology - Last 24 Hours (Table) 08/03/18 09:35 Blood Culture - Final Blood No Growth after 144 hours 08/04/18 05:52 Blood Culture - Preliminary Blood No Growth after 120 hours Assessment and Plan (1) Acute myelogenous leukemia Narrative/Plan: Patient is admitted for treatment of the same. Patient's blast count has decreased from 15, last noted to be 4. Patient physically is showing signs of improvement. Patient will continue IV vidaza, day 4 of 7. He will continue oral venetoclax at 400 mg daily until we have a preliminary bone marrow showing no blasts. At that time patient will then be initiated on G-CSF. Current Visit: Yes Status: Acute Priority: High Code(s): C92.00 - ACUTE MYELOBLASTIC LEUKEMIA, NOT HAVING ACHIEVED REMISSION SNOMED Code(s): 76312887 (2) Pancytopenia Narrative/Plan: Secondary to disease as well as treatment of disease. No intervention for low white count. Transfuse for platelets < 10,000 or if symptomatic Transfuse for Hgb< 7 unless symptomatic No GCSF at this time. Patient is on prophylactic antiviral, antifungal and antibiotics. Current Visit: Yes Status: Acute Priority: High Code(s): D61.818 - OTHER PANCYTOPENIA SNOMED Code(s): 026867982 Plan: Labs daily while inpatient Daily follow-up Continue monitoring of uric acid and phosphorus, signs or symptoms of tumor lysis syndrome. Continue allopurinol and IV hydration. Specialty been requested to relieve pressure. Close monitoring of the skin. High-protein diet recommendations.
--- NOTE | 2018-08-09 19:43 | P.PN ---
Subjective Progress Note Date: 08/09/18 Principal diagnosis: Elevated liver enzymes Patient seen lying in bed reporting that he is tolerating his diet. No abdominal pain. No nausea vomiting reported. Objective - Vital Signs Vital signs: Vital Signs Temp 98.4 F 08/09/18 12:00 Pulse 97 08/09/18 12:00 Resp 18 08/09/18 12:00 BP 107/58 08/09/18 12:00 Pulse Ox 97 08/09/18 12:00 Intake & Output 08/09/18 08/09/18 08/10/18 06:59 18:59 06:59 Intake Total 250 Output Total 602 Balance -352 Weight 72.5 kg Intake: Intake, IV Titration 250 Amount Vancomycin 1,250 mg In 250 Sodium Chloride 0.9% 250 ml @ 125 mls/hr IVPB Q12H [facility] Rx#:[id number] Output: Urine 600 Stool 2 Other: Voiding Method Urinal Urinal Diaper Incontinent # Voids 1 - Exam On physical examination, patient appears comfortable in no apparent distress. HEAD: Normocephalic, atraumatic. EYES: No scleral icterus. No conjunctival injection. MOUTH: No lesions, tongue midline. NECK: Trachea midline, no gross abnormalities. CHEST: Clear to auscultation with no wheezing or rhonchi appreciated. ABDOMEN: Soft, thin. Bowel sounds are positive. No organomegaly. No guarding or rigidity. EXTREMITIES: No pedal edema. SKIN: No rashes, no jaundice. NEUROLOGIC: Alert and oriented x3. No focal deficits. - Labs CBC & Chem 7: 08/09/18 07:13 08/09/18 07:13 Labs: Abnormal Lab Results - Last 24 Hours (Table) 08/09/18 08/09/18 Range/Units 07:13 07:13 WBC 0.5 L* (3.8-10.6) k/uL RBC 2.70 L (4.30-5.90) m/uL Hgb 7.4 L (13.0-17.5) gm/dL Hct 22.7 L (39.0-53.0) % RDW 17.7 H (11.5-15.5) % Plt Count 11 L* (150-450) k/uL Chloride 113 H (98-107) mmol/L Uric Acid 2.5 L (3.5-8.5) mg/dL Calcium 7.8 L (8.4-10.2) mg/dL Phosphorus 2.1 L (2.5-4.5) mg/dL AST 209 H (17-59) U/L ALT 302 H (21-72) U/L Alkaline Phosphatase 459 H (38-126) U/L Lactate Dehydrogenase 1048 H (313-618) U/L Total Protein 4.8 L (6.3-8.2) g/dL Albumin 2.3 L (3.5-5.0) g/dL Microbiology - Last 24 Hours (Table) 08/03/18 09:35 Blood Culture - Final Blood No Growth after 144 hours 08/04/18 05:52 Blood Culture - Preliminary Blood No Growth after 120 hours Assessment and Plan (1) Acute myelogenous leukemia Narrative/Plan: 62-year-old male with multiple medical comorbidities including acute myelogenous leukemia who was found to have elevation in his liver enzymes in predominantly hepatocellular pattern. Liver enzymes have trended down during his hospitalization and suspicion is for a drug induced effect, currently receiving chemotherapy. Current Visit: Yes Status: Acute Priority: High Code(s): C92.00 - ACUTE MYELOBLASTIC LEUKEMIA, NOT HAVING ACHIEVED REMISSION SNOMED Code(s): 10234163 (2) Elevated liver enzymes Current Visit: Yes Status: Acute Code(s): R74.8 - ABNORMAL LEVELS OF OTHER SERUM ENZYMES SNOMED Code(s): 501694883 (3) Pancytopenia Current Visit: Yes Status: Acute Priority: High Code(s): D61.818 - OTHER PANCYTOPENIA SNOMED Code(s): 777244027 Plan: Supportive care Okay for diet Continue antiemetic therapy Continue to monitor liver enzymes Consideration for full serology and workup of elevation of liver enzymes if laboratories worsen Continue management while oncology team Thank you for allowing us to participate in the care of this patient
--- NOTE | 2018-08-09 22:42 | P.PN ---
Subjective Progress Note Date: 08/09/18 This is a 62-year-old male with significant past history of CLL initially diagnosed in December 2000 followed by diagnosis of diffuse large B- cell lymphoma in 2014 and again in 2016. He suffered from myocardial infarction during course of chemotherapy was stopped. Heart catheterization found complete RCA occlusion with collaterals and tight stenosis in the circumflex that was difficult to stent and not considered a candidate for surgery and was placed on medical management but eventually had successful stenting of the LAD and left circumflex. It was decided in September 2017 not to proceed with chemotherapy. In May of this year, patient presented with shortness of breath and pancytopenia was found to be in acute myeloleukemia and started chemotherapy on June 12 with 7+3 regime, supportive transfusions and prophylactic antibiotics. The patient's course was complicated as he appeared does not have any drug coverage and application to the drug companies have been done by the oncologist office. 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 Patient presented to [facility] emergency center on August 02 with complaints of weakness and intermittent confusion. Patient also states he was running fevers at home. He denies having any shortness of breath or chest pain. He states he has had a cough with possibly some sputum production. Patient presented with fever of 103.3, tachycardia and hypotension. White cell count is at 19.9, hemoglobin 8.7 and platelet count 15 and last at 19.7. Patient has had transfusion of 3 units packed RBCs and 2 units of platelets. The patient's course has been complicated as he developed atrial fibrillation currently on Cardizem drip and followed by cardiology. Stool for occult blood is positive and liver function tests have been elevated. Gastroenterology is also following the patient. He underwent a liver ultrasound this morning and report is pending. A CAT scan of the abdomen pelvis also ordered. Patient has been on vancomycin and meropenem was added by ID. Urine culture has been finalized with no growth and blood culture showing no growth at 72 hours. 08/05/2018 patient is definitely feeling better today. His fever has resolved. Some difficulty with swallowing is uncomfortable. But otherwise has no other acute complaints. 08/06/2018 patient transferred to oncology unit to begin his next course of chemotherapy for persistent AML 08/07/2018 patient is feeling somewhat better today. Temperature maximum 100.9. His shortness of breath is improving. He is relating since initiating his chemotherapy yesterday he does seem to be feeling better 08/09/2018 patient continues to feel better. Is afebrile today. Tolerated his chemotherapy relatively well. Relates since starting chemotherapy he is actually feeling added and he has in quite some time. His appetite has increased his been able to eat part of his meals today. Objective - Vital Signs Vital signs: Vital Signs Temp 97.8 F 08/09/18 20:25 Pulse 98 08/09/18 20:25 Resp 16 08/09/18 20:25 BP 108/71 08/09/18 20:25 Pulse Ox 99 08/09/18 20:25 Intake & Output 08/09/18 08/09/18 08/10/18 06:59 18:59 06:59 Intake Total 250 Output Total 602 Balance -352 Weight 72.5 kg Intake: Intake, IV Titration 250 Amount Vancomycin 1,250 mg In 250 Sodium Chloride 0.9% 250 ml @ 125 mls/hr IVPB Q12H [facility] Rx#:[id number] Output: Urine 600 Stool 2 Other: Voiding Method Urinal Urinal Diaper Incontinent # Voids 1 - Exam Gen: This is a thin 62-year-old male. He is resting in bed and sleeping and awakens easily to verbal stimuli. HEENT: Head is atraumatic, normocephalic. Pupils equal, round. Sclerae is anicteric. Oral mucous membranes are dry but without thrush but oral cavity remains uncomfortable. Patient is essentially edentulous with 1 lone tooth on top mid front. NECK: Supple. No JVD. No thyromegaly. LUNGS: Scattered rhonchi and bibasilar rales. Congestive moist cough noted. No intercostal retractions. HEART: Regular rate and rhythm. No murmur. Tachycardic. ABDOMEN: Soft. Bowel sounds are present. No masses. No tenderness. No right upper quadrant tenderness. EXTREMITIES: No pedal edema. No calf tenderness. Dorsalis pedis are +1 bilaterally. NEUROLOGICAL: Patient is awake, alert and oriented x3 - Labs CBC & Chem 7: 08/09/18 07:13 08/09/18 07:13 Labs: Abnormal Lab Results - Last 24 Hours (Table) 08/09/18 08/09/18 Range/Units 07:13 07:13 WBC 0.5 L* (3.8-10.6) k/uL RBC 2.70 L (4.30-5.90) m/uL Hgb 7.4 L (13.0-17.5) gm/dL Hct 22.7 L (39.0-53.0) % RDW 17.7 H (11.5-15.5) % Plt Count 11 L* (150-450) k/uL Chloride 113 H (98-107) mmol/L Uric Acid 2.5 L (3.5-8.5) mg/dL Calcium 7.8 L (8.4-10.2) mg/dL Phosphorus 2.1 L (2.5-4.5) mg/dL AST 209 H (17-59) U/L ALT 302 H (21-72) U/L Alkaline Phosphatase 459 H (38-126) U/L Lactate Dehydrogenase 1048 H (313-618) U/L Total Protein 4.8 L (6.3-8.2) g/dL Albumin 2.3 L (3.5-5.0) g/dL Microbiology - Last 24 Hours (Table) 08/03/18 09:35 Blood Culture - Final Blood No Growth after 144 hours 08/04/18 05:52 Blood Culture - Preliminary Blood No Growth after 120 hours Laboratory Results WBC 0.5 k/uL (3.8-10.6) L* 08/09/18 07:13 RBC 2.70 m/uL (4.30-5.90) L 08/09/18 07:13 Hgb 7.4 gm/dL (13.0-17.5) L 08/09/18 07:13 Hct 22.7 % (39.0-53.0) L 08/09/18 07:13 MCV 84.1 fL (80.0-100.0) 08/09/18 07:13 MCH 27.3 pg (25.0-35.0) 08/09/18 07:13 MCHC 32.5 g/dL (31.0-37.0) 08/09/18 07:13 RDW 17.7 % (11.5-15.5) H 08/09/18 07:13 Plt Count 11 k/uL (150-450) L* 08/09/18 07:13 Neutrophils % (Manual) 1 % 08/07/18 06:29 Lymphocytes % (Manual) 5 % 08/07/18 06:29 Monocytes % (Manual) 7 % 08/07/18 06:29 Blast Cells % 87 % H* 08/07/18 06:29 Neutrophils # [employer] 08/09/18 07:13 Neutrophils # (Manual) 0.05 k/uL (1.3-7.7) L* 08/07/18 06:29 Lymphocytes # (Manual) 0.25 k/uL (1.0-4.8) L 08/07/18 06:29 Monocytes # (Manual) 0.34 k/uL (0-1.0) 08/07/18 06:29 Blast Cells # (Man) 4.26 k/uL (0) H 08/07/18 06:29 Nucleated RBCs 0 /100 WBC (0-0) 08/07/18 06:29 Differential Comment 08/09/18 07:13 Manual Slide Review Performed 08/09/18 07:13 Hypochromasia Moderate 08/01/18 10:42 Poikilocytosis Slight 08/04/18 05:52 Poikilocytosis (manual Present 08/03/18 05:36 Anisocytosis Slight 08/09/18 07:13 Microcytosis Slight 08/04/18 05:52 Fragmented RBCs Present 08/04/18 05:52 PT 13.1 sec (9.0-12.0) H 08/03/18 21:40 INR 1.3 (<1.2) H 08/03/18 21:40 APTT 31.8 sec (22.0-30.0) H 08/03/18 21:40 Sodium 138 mmol/L (137-145) 08/09/18 07:13 Potassium 4.4 mmol/L (3.5-5.1) 08/09/18 07:13 Chloride 113 mmol/L (98-107) H 08/09/18 07:13 Carbon Dioxide 23 mmol/L (22-30) 08/09/18 07:13 Anion Gap 2 mmol/L 08/09/18 07:13 BUN 20 mg/dL (9-20) 08/09/18 07:13 Creatinine 0.82 mg/dL (0.66-1.25) 08/09/18 07:13 Est GFR (CKD-EPI)AfAm >90 (>60 ml/min/1.73 sqM) 08/09/18 07:13 Est GFR (CKD-EPI)NonAf >90 (>60 ml/min/1.73 sqM) 08/09/18 07:13 Glucose 88 mg/dL (74-99) 08/09/18 07:13 Lactic Ac Sepsis Rflx Y 07/31/18 21:43 Plasma Lactic Acid Jaylen 1.1 mmol/L (0.7-2.0) 08/03/18 09:35 Uric Acid 2.5 mg/dL (3.5-8.5) L 08/09/18 07:13 Calcium 7.8 mg/dL (8.4-10.2) L 08/09/18 07:13 Phosphorus 2.1 mg/dL (2.5-4.5) L 08/09/18 07:13 Magnesium 2.2 mg/dL (1.6-2.3) 08/09/18 07:13 Total Bilirubin 1.0 mg/dL (0.2-1.3) 08/09/18 07:13 AST 209 U/L (17-59) H 08/09/18 07:13 ALT 302 U/L (21-72) H 08/09/18 07:13 Alkaline Phosphatase 459 U/L (38-126) H 08/09/18 07:13 Lactate Dehydrogenase 1048 U/L (313-618) H 08/09/18 07:13 Troponin I 0.124 ng/mL (0.000-0.034) H* 08/02/18 13:50 NT-Pro-B Natriuret Pep 84229 pg/mL 08/02/18 07:58 Total Protein 4.8 g/dL (6.3-8.2) L 08/09/18 07:13 Albumin 2.3 g/dL (3.5-5.0) L 08/09/18 07:13 Urine Color Yellow 08/01/18 00:10 Urine Appearance Clear (Clear) 08/01/18 00:10 Urine pH 6.0 (5.0-8.0) 08/01/18 00:10 Ur Specific Bivalve 1.021 (1.001-1.035) 08/01/18 00:10 Urine Protein 1+ (Negative) H 08/01/18 00:10 Urine Glucose (UA) Negative (Negative) 08/01/18 00:10 Urine Ketones Negative (Negative) 08/01/18 00:10 Urine Blood Moderate (Negative) H 08/01/18 00:10 Urine Nitrite Negative (Negative) 08/01/18 00:10 Urine Bilirubin Negative (Negative) 08/01/18 00:10 Urine Urobilinogen 2.0 mg/dL (<2.0) 08/01/18 00:10 Ur Leukocyte Esterase Negative (Negative) 08/01/18 00:10 Urine RBC 1 /hpf (0-5) 08/01/18 00:10 Urine WBC 2 /hpf (0-5) 08/01/18 00:10 Urine Mucus Rare /hpf (None) H 08/01/18 00:10 Stool Occult Blood Positive (Negative) 08/01/18 00:00 Vancomycin Trough 18.8 ug/mL 08/08/18 09:35 Hepatitis A IgM Ab Non-Reactive (Non-Reactive) 08/04/18 05:52 Hep Bs Antigen Non-Reactive (Non-Reactive) 08/04/18 05:52 Hep B Core IgM Ab Non-Reactive (Non-Reactive) 08/04/18 05:52 Hep C IgG Ab Non-Reactive (Non-Reactive) 08/04/18 05:52 Blood Type A Negative 07/31/18 22:11 Blood Type Recheck No 07/31/18 22:11 Antibody Screen NEGATIVE 07/31/18 22:11 Crossmatch See Detail 07/31/18 22:11 Transfuse Platelets 08/05/2018 08/05/18 Unknown Spec Expiration Date 08/03/2018 - 231007/31/18 22:11 Microbiology 08/03/18 09:35 Blood Blood Culture - Final No Growth after 144 hours 08/04/18 05:52 Blood Blood Culture - Preliminary No Growth after 120 hours 08/01/18 01:47 Blood Blood Culture - Final No Growth after 144 hours 08/01/18 00:10 Urine,Voided Urine Culture - Final Assessment and Plan (1) Acute myelogenous leukemia Narrative/Plan: 62-year-old male who has a history of AML who has not done well with his most recent course of chemotherapy. And hopefully will be able to start a new regimen to the near future. Comes in the hospital feeling ill with similar fever and elevation of his liver function tests. He does have evidence of some chronic cholecystitis without evidence of acute cholecystitis. Elevated AST and ALT potentially from current illness, recent medications most likely. However underlying infection of the biliary tract is not excluded at this time. Although his alkaline phosphatase is elevated the total bilirubin is normal. We'll expect the liver function tests will rapidly improve. In his fever improves with no evidence of bacteremia or other significant focus of infection, hopefully becomes a rapid candidate for chemotherapy for the treatment of his AML. Antibiotic therapy while cultures are process was initiated with meropenem and vancomycin given his history and concerns to biliary sepsis. 08/05/2018 patient still feels poorly. Slightly improved. Having no fever. Still difficulty ingesting food because the discomfort is oral cavity but no evidence of thrush or oral ulcerations. We'll continue current antibiotic therapy while cultures are processing. Fortunately negative so far. Likely the patient will start his chemotherapy tomorrow is a cultures are negative. It is likely that his current level of illness is related to his AML and increasing amounts of blasts in his peripheral smear. 08/06/2018 patient feels poorly. Is having some low-grade fever liken the basis of his current AML. To receive new course of chemotherapy starting today. Cultures are negative. Patient remains on the extensive antimicrobial coverage, I believe this will continue for now. Will re- culture if febrile. It co ntinues to have fevers with transition antifungal therapy. 08/07/2018 patient is feeling better today. Temperature maximum 100.9. No other new symptoms. Has tolerated his first infusions of the new chemotherapy regimen well. Cultures are monitored and no positive cultures so far. Continue to monitor on current antibiotic therapy. We'll quickly enhance antifungal therapy if fevers recur. 08/09/2018 patient continues to feel somewhat better, tolerated meals today Chemotherapy has been well-tolerated. He has no fever, continue current antimicrobials. Current Visit: Yes Status: Acute Priority: High Code(s): C92.00 - ACUTE MYELOBLASTIC LEUKEMIA, NOT HAVING ACHIEVED REMISSION SNOMED Code(s): 61819819 (2) Elevated liver enzymes Current Visit: Yes Status: Acute Code(s): R74.8 - ABNORMAL LEVELS OF OTHER SERUM ENZYMES SNOMED Code(s): 450310179
[2018-08-10] MEDS: MEROPENEM 1 GM in SODIUM CHLORIDE 0.9% 100 ML IVPB SCH ×3 (00:03→15:49)
[2018-08-10] MEDS: MAG HYDROX/AL HYDROX/SIMETH 30 ML, LIDOCAINE VISCOUS 30 ML, diphenhydrAMINE ELIXIR 75 M... PO SCH ×24 (00:03→22:19)
[2018-08-10] MEDS: ACETAMINOPHEN TAB 500 MG TAB PO PRN ×3 (03:55→22:07)
[2018-08-10] MEDS: PANTOPRAZOLE 40 MG TABLET PO SCH ×2 (09:25→17:52)
[2018-08-10] MEDS: ACYCLOVIR 200 MG CAP PO SCH ×2 (09:25→22:07)
[2018-08-10] MEDS: FLUCONAZOLE 100 MG TAB PO SCH (09:26)
[2018-08-10] MEDS: METOPROLOL SUCCINATE (ER) 50 MG TAB.ER.24H PO SCH ×2 (09:26→23:09)
[2018-08-10] MEDS: FERROUS SULFATE 325 MG TAB PO SCH (09:26)
[2018-08-10] MEDS: FOLIC ACID 1 MG TAB PO SCH (09:26)
[2018-08-10] MEDS: ASCORBIC ACID 500 MG TAB PO SCH (09:26)
[2018-08-10] MEDS: ALLOPURINOL 300 MG TAB PO SCH (09:26)
[2018-08-10] MEDS: POTASSIUM CHLORIDE ER 20 MEQ TAB.ER PO SCH ×2 (09:27→22:07)
[2018-08-10 09:38] LABS: Anisocytosis Slight; HCT 23.8 % (39.0-53.0); HGB 7.8 gm/dL (13.0-17.5); MCH 27.6 pg (25.0-35.0); MCHC 32.6 g/dL (31.0-37.0); MCV 84.7 fL (80.0-100.0); Mean Platelet Volume 7.1; RBC 2.81 m/uL (4.30-5.90); RDW 17.6 % (11.5-15.5)
[2018-08-10 09:44] LABS: WBC 0.3 k/uL (3.8-10.6)
[2018-08-10 09:45] LABS: Platelet Count 6 k/uL (150-450)
[2018-08-10 10:08] LABS: ALT 219 U/L (21-72); AST 90 U/L (17-59); Albumin 2.5 g/dL (3.5-5.0); Alkaline Phosphatase 395 U/L (38-126); Anion Gap 6 mmol/L; Blood Urea Nitrogen 20 mg/dL (9-20); Calcium 8.2 mg/dL (8.4-10.2); Carbon Dioxide 23 mmol/L (22-30); Chloride 110 mmol/L (98-107); Glucose 110 mg/dL (74-99); LDH 741 U/L (313-618); Magnesium 2.1 mg/dL (1.6-2.3); Phosphorus 2.4 mg/dL (2.5-4.5); Potassium 4.1 mmol/L (3.5-5.1); Sodium 139 mmol/L (137-145); Total Bilirubin 1.3 mg/dL (0.2-1.3); Total Protein 5.2 g/dL (6.3-8.2); Uric Acid 2.6 mg/dL (3.5-8.5)
--- NOTE | 2018-08-10 10:39 | P.PN ---
Subjective Progress Note Date: 08/10/18 Principal diagnosis: Transaminitis LFTs improving. Total bilirubin 1.3. AST 90. ALT 219. Fevers improving T-max 100.1. AP 741. Objective - Vital Signs Vital signs: Vital Signs Temp 98.7 F 08/10/18 04:56 Pulse 89 08/10/18 04:40 Resp 18 08/10/18 04:40 BP 107/61 08/10/18 04:40 Pulse Ox 98 08/10/18 04:40 Intake & Output 08/09/18 08/10/18 08/10/18 18:59 06:59 18:59 Weight 67.5 kg Other: Voiding Method Urinal Diaper Incontinent # Voids 2 # Bowel Movements 1 - Exam General appearance: The patient is alert, oriented, in no acute distress. Thin appearance. HET: Head is normocephalic and atraumatic. Pupils are equal and reactive. Oropharynx is clear without lesions. Neck: Supple without lymphadenopathy. Trachea midline. Heart: S1 S2. Regular rate and rhythm. Lungs: No crackles or wheezes are heard. Abdomen: Soft, nontender, nondistended with bowel sounds. No peritoneal signs. No palpable organomegaly or masses. Extremities: Normal skin color and turgor. No cyanosis, rash, ulceration, clu bbing, or edema. Radial and pedal pulses are 2/4 bilaterally. Neurological: No focal deficits. Strength and sensation are grossly intact. - Labs CBC & Chem 7: 08/10/18 08:59 08/10/18 08:59 Labs: Abnormal Lab Results - Last 24 Hours (Table) 08/09/18 08/10/18 08/10/18 Range/Units 07:13 08:59 08:59 WBC 0.3 L* (3.8-10.6) k/uL RBC 2.81 L (4.30-5.90) m/uL Hgb 7.8 L (13.0-17.5) gm/dL Hct 23.8 L (39.0-53.0) % RDW 17.6 H (11.5-15.5) % Plt Count 6 L* (150-450) k/uL Chloride 113 H 110 H (98-107) mmol/L Glucose 110 H (74-99) mg/dL Uric Acid 2.5 L 2.6 L (3.5-8.5) mg/dL Calcium 7.8 L 8.2 L (8.4-10.2) mg/dL Phosphorus 2.1 L 2.4 L (2.5-4.5) mg/dL AST 209 H 90 H (17-59) U/L ALT 302 H 219 H (21-72) U/L Alkaline Phosphatase 459 H 395 H (38-126) U/L Lactate Dehydrogenase 1048 H 741 H (313-618) U/L Total Protein 4.8 L 5.2 L (6.3-8.2) g/dL Albumin 2.3 L 2.5 L (3.5-5.0) g/dL Microbiology - Last 24 Hours (Table) 08/04/18 05:52 Blood Culture - Final Blood No Growth after 144 hours 08/03/18 09:35 Blood Culture - Final Blood No Growth after 144 hours Assessment and Plan (1) Elevated liver enzymes Narrative/Plan: 62-year-old gentleman with a complicated oncology history, cardiomyopathy, presents with multiple constitutional complaints weakness fatigue fever pancytopenia with asymptomatic elevated transaminases with normal bilirubin. Abdominal imaging reported gallstones without ductal dilatation and gallbladder wall thickening however patient reports no episodes of abdominal pain. Liver enzyme pattern seems to be hepatocellular nature suspect drug-induced liver injury possible component of congestive hepatopathy possible underlying hepatocellular disease from previous chemotherapy treatments. Current Visit: Yes Status: Acute Code(s): R74.8 - ABNORMAL LEVELS OF OTHER SERUM ENZYMES SNOMED Code(s): 454355689 (2) Fever Current Visit: Yes Status: Acute Code(s): R50.9 - FEVER, UNSPECIFIED SNOMED Code(s): 517528959 (3) Acute myelogenous leukemia Current Visit: Yes Status: Acute Priority: High Code(s): C92.00 - ACUTE MYELOBLASTIC LEUKEMIA, NOT HAVING ACHIEVED REMISSION SNOMED Code(s): 74856305 (4) Pancytopenia Current Visit: Yes Status: Acute Priority: High Code(s): D61.818 - OTHER PANCYTOPENIA SNOMED Code(s): 064401800 Plan: Supportive care Okay for diet Continue antiemetic therapy Continue to monitor liver enzymes Consideration for full serology and workup of elevation of liver enzymes if laboratories worsen presently improving Continue management while oncology team Assessment and plan a care discussed with Dr. Hall
[2018-08-10] MEDS: VANCOMYCIN 1,250 MG in SODIUM CHLORIDE 0.9% 250 ML IVPB SCH ×2 (11:56→22:07)
--- NOTE | 2018-08-10 12:02 | P.PN ---
Subjective Progress Note Date: 08/10/18 Principal diagnosis: Acute myeloid leukemia, treatment In follow-up today patient resting comfortably, denies fever or chills, nosebleed, oral bleeding, hemoptysis, hematuria, black or bloody stool, diarrhea or constipation, nausea, vomiting, difficulty breathing, abdominal pain, he has a specialty bed and feels that the discomfort in the coccyx area, secondary to pressure, is a little better, no swelling or pain to report. Objective - Vital Signs Vital signs: Vital Signs Temp 98.7 F 08/10/18 04:56 Pulse 89 08/10/18 04:40 Resp 18 08/10/18 04:40 BP 107/61 08/10/18 04:40 Pulse Ox 98 08/10/18 04:40 Intake & Output 08/09/18 08/10/18 08/10/18 18:59 06:59 18:59 Weight 67.5 kg Other: Voiding Method Urinal Diaper Incontinent # Voids 2 # Bowel Movements 1 - Constitutional General appearance: Present: cooperative, no acute distress, thin - EENT Eyes: Present: anicteric sclerae, EOMI, poor dentition ENT: Present: hearing grossly normal, pharyngeal erythema - Respiratory Respiratory: bilateral: CTA - Cardiovascular Rhythm: regular Heart sounds: normal: S1, S2 Abnormal Heart Sounds: Absent: systolic murmur, diastolic murmur, rub, S3 Gallop, S4 Gallop, click, other - Peripheral edema leg Peripheral Edema: bilateral: None - Gastrointestinal General gastrointestinal: Present: normal bowel sounds, soft. Absent: absent bowel sounds, decreased bowel sounds, distended, hepatomegaly, hyperactive bowel sounds, organomegaly, rigid, scaphoid, splenomegaly, tenderness, umbilical hernia, ventral hernia - Neurologic Neurologic: Present: CNII-XII intact - Musculoskeletal Musculoskeletal: Present: generalized weakness - Psychiatric Psychiatric: Present: A&O x's 3, appropriate affect, intact judgment & insight - Labs CBC & Chem 7: 08/10/18 08:59 08/10/18 08:59 Labs: Abnormal Lab Results - Last 24 Hours (Table) 08/10/18 08/10/18 Range/Units 08:59 08:59 WBC 0.3 L* (3.8-10.6) k/uL RBC 2.81 L (4.30-5.90) m/uL Hgb 7.8 L (13.0-17.5) gm/dL Hct 23.8 L (39.0-53.0) % RDW 17.6 H (11.5-15.5) % Plt Count 6 L* (150-450) k/uL Chloride 110 H (98-107) mmol/L Glucose 110 H (74-99) mg/dL Uric Acid 2.6 L (3.5-8.5) mg/dL Calcium 8.2 L (8.4-10.2) mg/dL Phosphorus 2.4 L (2.5-4.5) mg/dL AST 90 H (17-59) U/L ALT 219 H (21-72) U/L Alkaline Phosphatase 395 H (38-126) U/L Lactate Dehydrogenase 741 H (313-618) U/L Total Protein 5.2 L (6.3-8.2) g/dL Albumin 2.5 L (3.5-5.0) g/dL Microbiology - Last 24 Hours (Table) 08/04/18 05:52 Blood Culture - Final Blood No Growth after 144 hours 08/03/18 09:35 Blood Culture - Final Blood No Growth after 144 hours Assessment and Plan (1) Acute myelogenous leukemia Narrative/Plan: Patient is admitted for treatment of the same. Continue IV vidaza, day 5 of 7, continue oral venetoclax at 400 mg daily until we have a preliminary bone marrow showing no blasts. At that time patient will then be initiated on G-CSF. Current Visit: Yes Status: Acute Priority: High Code(s): C92.00 - ACUTE MYELOBLASTIC LEUKEMIA, NOT HAVING ACHIEVED REMISSION SNOMED Code(s): 88843613 (2) Pancytopenia Narrative/Plan: Secondary to disease as well as treatment of disease. No intervention for low white count. Transfuse platelets today for a platelet count of 6000 Transfuse for Hgb< 7, unless symptomatic, hemoglobin is stable today No GCSF at this time. Patient is on prophylactic antiviral, antifungal and antibiotics. Current Visit: Yes Status: Acute Priority: High Code(s): D61.818 - OTHER PANCYTOPENIA SNOMED Code(s): 721492305 Plan: Labs daily while inpatient Daily follow-up. Supportive care Continue monitoring of uric acid and phosphorus, signs or symptoms of tumor lysis syndrome. Continue allopurinol and IV hydration. Specialty bed. Close monitoring of the skin. High-protein diet recommendations.
[2018-08-10] MEDS: ONDANSETRON 16 MG in SODIUM CHLORIDE 0.9% 50 ML IVPB SCH (14:51)
[2018-08-10] MEDS: SALT AND SODA MOUTHWASH 1,000 ML PO SCH ×3 (14:57→22:19)
[2018-08-10] MEDS: VENETOCLAX 100 MG PO SCH (15:27)
--- NOTE | 2018-08-11 00:37 | P.PN ---
Subjective Mr. Nevarez is a 62-year-old gentleman admitted with severe symptomatic anemia. Patient has acute myelogenous leukemia with fevers. He is currently being followed by multiple consultants. He is on broad-spectrum antibiotics including meropenem and fluconazole. Patient had sustained V. tach which was believed to be secondary to hypomagnesemia. Patient has congestive heart failure with ejection fraction around 35%. He has severe leukocytosis. On 08/07/18 -Today patient is lying in the bed. He is cachectic and chronically ill appearing. He has been transferred to the oncology floor yesterday and started on chemotherapy. Patient states that he still weak but feeling a little better today. He reports that his leukocytosis is improved and he is able to tolerate a small amount of his diet. He continues to have fevers, highest recorded over the past 24 hours is 100.9. Patient denies having any chest pain or difficulty in breathing. He denies having any abdominal pain nausea vomiting or diarrhea. No dysuria or hematuria. Denies having any headaches or blurring of his vision or focal weakness. On 08/08/18 - patient is lying in bed. He states overall he is improving. He is cachectic. Appears to be no acute distress. Chemotherapy has been initiated by oncology team, Dr. Raymond villafana. His been tolerating okay. Patient states his appetite is still bad and he is not able to eat much. On 08/09/18 - patient is lying in bed. Appears to be no acute distress. As per the nursing staff report, patient's appetite is much better. Patient also reports that his oral mucosa is less painful and that he is able to eat more. Overall patient reports feeling much better. Patient is getting his chemotherapy-day 4 today. On review of systems - constitutional- history unless weakness and fatigue. No chest pain or palpitations. No cough or difficulty in breathing. No abdominal pain nausea vomiting or diarrhea. No dysuria or hematuria. 08/10/2018 Patient today with fully awake and oriented. He is generally weak. His appetite is nondisplaced and he is eating a little bit however he has no nausea vomiting or abdominal pain. She still fatigue with no respiratory signs and symptoms. No chest pain and or dyspnea. He is hemodynamically stable. However he still have fever of 100.1 today. And labs show still severe pancytopenia with WBC of 0.3, hemoglobin of 7.8 and platelets 6. His BMP was unremarkable. Liver enzymes are trending down slowly. He remains on chemotherapy orally and oncology team are following the patient closely. He still on antibiotic as meropenem and vancomycin and acyclovir. An infectious disease are evaluated the patient. CONSTITUTIONAL: No fever, no malaise, no fatigue. HEENT: No recent visual problems or hearing problems. Denied any sore throat. CARDIOVASCULAR: No orthopnea, PND, no palpitations, no syncope. PULMONARY: No shortness of breath, no cough, no hemoptysis. GASTROINTESTINAL: No diarrhea, no nausea, no vomiting, no abdominal pain. Normoactive bowel sounds. NEUROLOGICAL: No headaches, no weakness, no numbness. HEMATOLOGICAL: Denies any bleeding or petechiae. GENITOURINARY: Denies any burning micturition, frequency, or urgency. MUSCULOSKELETAL/RHEUMATOLOGICAL: Denies any joint pain, swelling, or any muscle pain. ENDOCRINE: Denies any polyuria or polydipsia. Medication: Acyclovir, Tylenol, albuterol, Xanax, vitamin C, azacitidine, meropenem, Protonix, Zofran, potassium and chloride, Ultram, vancomycin, Objective - Vital Signs Vital signs: Vital Signs Temp 98.9 F 08/10/18 13:23 Pulse 95 08/10/18 13:23 Resp 12 08/10/18 13:23 BP 108/63 08/10/18 13:23 Pulse Ox 95 08/10/18 13:23 Intake & Output 08/09/18 08/10/18 08/10/18 18:59 06:59 18:59 Intake Total 0 Balance 0 Weight 67.5 kg Intake: Blood Product 0 Platelet Irr Pheresis 0 Acda1 Unit [id number] Other: Voiding Method Urinal Diaper Incontinent # Voids 2 # Bowel Movements 1 - Exam GENERAL: Cachectic and chronically ill appearing. Temporal wasting HEENT: Pallor positive. Oral mucosa looks much better compared to couple of days back. CARDIOVASCULAR: S1 and S2 present. No murmurs, rubs, or gallops. tachycardic PULMONARY: Bilateral expiratory wheezes. Diminished breath sounds at the lower lung tristan. ABDOMEN: Soft, nontender, nondistended, normoactive bowel sounds. No palpable organomegaly. MUSCULOSKELETAL: No joint swelling or deformity. EXTREMITIES: No cyanosis, clubbing, or pedal edema. NEUROLOGICAL: Gross neurological examination did not reveal any focal deficits. - Labs CBC & Chem 7: 08/10/18 08:59 08/10/18 08:59 Labs: Abnormal Lab Results - Last 24 Hours (Table) 08/10/18 08/10/18 Range/Units 08:59 08:59 WBC 0.3 L* (3.8-10.6) k/uL RBC 2.81 L (4.30-5.90) m/uL Hgb 7.8 L (13.0-17.5) gm/dL Hct 23.8 L (39.0-53.0) % RDW 17.6 H (11.5-15.5) % Plt Count 6 L* (150-450) k/uL Chloride 110 H (98-107) mmol/L Glucose 110 H (74-99) mg/dL Uric Acid 2.6 L (3.5-8.5) mg/dL Calcium 8.2 L (8.4-10.2) mg/dL Phosphorus 2.4 L (2.5-4.5) mg/dL AST 90 H (17-59) U/L ALT 219 H (21-72) U/L Alkaline Phosphatase 395 H (38-126) U/L Lactate Dehydrogenase 741 H (313-618) U/L Total Protein 5.2 L (6.3-8.2) g/dL Albumin 2.5 L (3.5-5.0) g/dL Microbiology - Last 24 Hours (Table) 08/04/18 05:52 Blood Culture - Final Blood No Growth after 144 hours 08/03/18 09:35 Blood Culture - Final Blood No Growth after 144 hours Assessment and Plan Assessment: Pancytopenia Fever, with neutropenia, on broad spectum antibiotic Acute myelogenous leukemia, on oral chemotherapy Elevated liver function tests, improving gradually Generalized weakness history of Congestive heart failure - chronic systolic with ejection fraction of 35%-not in exacerbation recent Sustained V. tach - possibily due to hypomagnesemia, Heart rate is stable currently Plan: Patient has been started on chemotherapy by oncology - day 5/out of 7, today. Patient still has pancytopenia and fever. continue with broad spectrum antibiotic. And patient reports that he feels better overall. Continue with fluconazole, vancomycin and meropenem. Blood cultures and urine cultures no growth so far. But overall prognosis is still poor. several consultants are following the pt including oncology and GI angelo and ID team as well . Further recommendations to follow depending on the progress of the patient. DVT px: no heparin in view of his severe thrombocytopenia GI px: protonix
[2018-08-11] MEDS: MEROPENEM 1 GM in SODIUM CHLORIDE 0.9% 100 ML IVPB SCH ×3 (01:04→15:53)
[2018-08-11] MEDS: SALT AND SODA MOUTHWASH 1,000 ML PO SCH ×5 (01:06→21:55)
[2018-08-11] MEDS: MAG HYDROX/AL HYDROX/SIMETH 30 ML, LIDOCAINE VISCOUS 30 ML, diphenhydrAMINE ELIXIR 75 M... PO SCH ×24 (01:08→21:54)
[2018-08-11 07:09] LABS: ALT 192 U/L (21-72); AST 101 U/L (17-59); Albumin 2.5 g/dL (3.5-5.0); Alkaline Phosphatase 431 U/L (38-126); Anion Gap 2 mmol/L; Blood Urea Nitrogen 18 mg/dL (9-20); Calcium 8.1 mg/dL (8.4-10.2); Carbon Dioxide 26 mmol/L (22-30); Chloride 111 mmol/L (98-107); Glucose 94 mg/dL (74-99); LDH 714 U/L (313-618); Magnesium 2.1 mg/dL (1.6-2.3); Potassium 4.5 mmol/L (3.5-5.1); Sodium 139 mmol/L (137-145); Total Bilirubin 1.2 mg/dL (0.2-1.3); Total Protein 5.1 g/dL (6.3-8.2); Uric Acid 1.8 mg/dL (3.5-8.5)
[2018-08-11 07:18] LABS: Anisocytosis Slight; HCT 21.3 % (39.0-53.0); HGB 7.1 gm/dL (13.0-17.5); MCH 28.2 pg (25.0-35.0); MCHC 33.4 g/dL (31.0-37.0); MCV 84.3 fL (80.0-100.0); Mean Platelet Volume 8.5; RBC 2.52 m/uL (4.30-5.90); RDW 17.2 % (11.5-15.5)
[2018-08-11 07:34] LABS: Platelet Count 10 k/uL (150-450); WBC 0.2 k/uL (3.8-10.6)
[2018-08-11 08:16] LABS: Poikilocytosis (M) Present
[2018-08-11] MEDS ORDERED: VANCOMYCIN TROUGH DUE 1 EACH MISC MISCELLANE ONE (09:00)
[2018-08-11] MEDS: POTASSIUM CHLORIDE ER 20 MEQ TAB.ER PO SCH ×2 (09:47→21:54)
[2018-08-11] MEDS: FOLIC ACID 1 MG TAB PO SCH (09:47)
[2018-08-11] MEDS: PANTOPRAZOLE 40 MG TABLET PO SCH ×2 (09:47→17:14)
[2018-08-11] MEDS: FLUCONAZOLE 100 MG TAB PO SCH (09:47)
[2018-08-11] MEDS: METOPROLOL SUCCINATE (ER) 50 MG TAB.ER.24H PO SCH ×2 (09:47→21:54)
[2018-08-11] MEDS: FERROUS SULFATE 325 MG TAB PO SCH (09:48)
[2018-08-11] MEDS: ACYCLOVIR 200 MG CAP PO SCH ×2 (09:48→21:54)
[2018-08-11] MEDS: ASCORBIC ACID 500 MG TAB PO SCH (09:48)
[2018-08-11] MEDS: ALLOPURINOL 300 MG TAB PO SCH (09:48)
[2018-08-11] MEDS: VANCOMYCIN 1,250 MG in SODIUM CHLORIDE 0.9% 250 ML IVPB SCH ×2 (10:45→21:54)
[2018-08-11] MEDS: traMADol 50 MG TAB PO PRN ×2 (10:52→17:14)
[2018-08-11] MEDS: ONDANSETRON 16 MG in SODIUM CHLORIDE 0.9% 50 ML IVPB SCH (13:58)
--- NOTE | 2018-08-11 15:08 | P.PN ---
Subjective Progress Note Date: 08/11/18 Principal diagnosis: Acute myeloid leukemia, treatment In follow-up today patient resting comfortably, denies fever, bleeding, hemoptysis, hematuria, black or bloody stool, diarrhea or constipation, nausea, vomiting, difficulty breathing, abdominal pain, he has a specialty bed and feels less discomfort on his hips, spine and back. Objective - Vital Signs Vital signs: Vital Signs Temp 97.8 F 08/11/18 14:01 Pulse 76 08/11/18 14:01 Resp 18 08/11/18 14:01 BP 102/55 08/11/18 14:01 Pulse Ox 99 08/11/18 14:01 Intake & Output 08/10/18 08/11/18 08/11/18 18:59 06:59 18:59 Intake Total 303 800 218 Balance 303 800 218 Weight 67.5 kg Intake: Intake, IV Titration 350 Amount Meropenem 1 gm In Sodium 100 Chloride 0.9% 100 ml @ 200 mls/hr IVPB Q8HR [facility] Rx#:[id number] Vancomycin 1,250 mg In 250 Sodium Chloride 0.9% 250 ml @ 125 mls/hr IVPB Q12H [facility] Rx#:[id number] Oral 450 Blood Product 303 218 Platelet Irr Pheresis 2 218 Acda Unit [id number] Platelet Irr Pheresis 303 Acda1 Unit [id number] Other: Voiding Method Urinal Urinal Urinal Diaper Incontinent Incontinent Incontinent # Voids 2 1 # Bowel Movements 1 - Exam Well-developed, thin, frail male laying in bed, no acute distress, alert and oriented 3, respirations even and unlabored, no showing in the lower extremities, skin is warm and dry to the touch, oral mucosa is slightly improved from yesterday, less red, no signs or symptoms of thrush. - EENT Eyes: Present: poor dentition - Labs CBC & Chem 7: 08/11/18 06:24 08/11/18 06:24 Labs: Abnormal Lab Results - Last 24 Hours (Table) 08/11/18 08/11/18 Range/Units 06:24 06:24 WBC 0.2 L* (3.8-10.6) k/uL RBC 2.52 L (4.30-5.90) m/uL Hgb 7.1 L (13.0-17.5) gm/dL Hct 21.3 L (39.0-53.0) % RDW 17.2 H (11.5-15.5) % Plt Count 10 L* D (150-450) k/uL Chloride 111 H (98-107) mmol/L Uric Acid 1.8 L (3.5-8.5) mg/dL Calcium 8.1 L (8.4-10.2) mg/dL Phosphorus 2.0 L (2.5-4.5) mg/dL AST 101 H (17-59) U/L ALT 192 H (21-72) U/L Alkaline Phosphatase 431 H (38-126) U/L Lactate Dehydrogenase 714 H (313-618) U/L Total Protein 5.1 L (6.3-8.2) g/dL Albumin 2.5 L (3.5-5.0) g/dL Assessment and Plan (1) Acute myelogenous leukemia Narrative/Plan: Patient is admitted for treatment of the same. The treatment is certainly working. Continue IV vidaza, day 6 of 7, continue oral venetoclax at 400 mg daily. Bone marrow will be scheduled outpatient. Once reported no blasts, patient will then be initiated on G-CSF. Current Visit: Yes Status: Acute Priority: High Code(s): C92.00 - ACUTE MYELOBLASTIC LEUKEMIA, NOT HAVING ACHIEVED REMISSION SNOMED Code(s): 82241324 (2) Pancytopenia Narrative/Plan: Secondary to disease as well as treatment of disease. No intervention for low white count. [place] [address] Transfuse for Hgb< 7, unless symptomatic, hemoglobin is stable today No GCSF at this time. Patient is on prophylactic antiviral, antifungal and antibiotics. Current Visit: Yes Status: Acute Priority: High Code(s): D61.818 - OTHER PANCYTOPENIA SNOMED Code(s): 227650220 Plan: Labs daily while inpatient Daily follow-up. Supportive care Continue monitoring of uric acid and phosphorus, signs or symptoms of tumor lysis syndrome. Continue allopurinol and IV hydration. Specialty bed. Close monitoring of the skin. High-protein diet recommendations.
[2018-08-11] MEDS: VENETOCLAX 100 MG PO SCH (15:22)
--- NOTE | 2018-08-11 16:35 | P.PN ---
Subjective Mr. Nevarez is a 62-year-old gentleman admitted with severe symptomatic anemia. Patient has acute myelogenous leukemia with fevers. He is currently being followed by multiple consultants. He is on broad-spectrum antibiotics including meropenem and fluconazole. Patient had sustained V. tach which was believed to be secondary to hypomagnesemia. Patient has congestive heart failure with ejection fraction around 35%. He has severe leukocytosis. On 08/07/18 -Today patient is lying in the bed. He is cachectic and chronically ill appearing. He has been transferred to the oncology floor yesterday and started on chemotherapy. Patient states that he still weak but feeling a little better today. He reports that his leukocytosis is improved and he is able to tolerate a small amount of his diet. He continues to have fevers, highest recorded over the past 24 hours is 100.9. Patient denies having any chest pain or difficulty in breathing. He denies having any abdominal pain nausea vomiting or diarrhea. No dysuria or hematuria. Denies having any headaches or blurring of his vision or focal weakness. On 08/08/18 - patient is lying in bed. He states overall he is improving. He is cachectic. Appears to be no acute distress. Chemotherapy has been initiated by oncology team, Dr. Raymond villafana. His been tolerating okay. Patient states his appetite is still bad and he is not able to eat much. On 08/09/18 - patient is lying in bed. Appears to be no acute distress. As per the nursing staff report, patient's appetite is much better. Patient also reports that his oral mucosa is less painful and that he is able to eat more. Overall patient reports feeling much better. Patient is getting his chemotherapy-day 4 today. On review of systems - constitutional- history unless weakness and fatigue. No chest pain or palpitations. No cough or difficulty in breathing. No abdominal pain nausea vomiting or diarrhea. No dysuria or hematuria. 08/10/2018 Patient today with fully awake and oriented. He is generally weak. His appetite is nondisplaced and he is eating a little bit however he has no nausea vomiting or abdominal pain. She still fatigue with no respiratory signs and symptoms. No chest pain and or dyspnea. He is hemodynamically stable. However he still have fever of 100.1 today. And labs show still severe pancytopenia with WBC of 0.3, hemoglobin of 7.8 and platelets 6. His BMP was unremarkable. Liver enzymes are trending down slowly. He remains on chemotherapy orally and oncology team are following the patient closely. He still on antibiotic as meropenem and vancomycin and acyclovir. An infectious disease are evaluated the patient. 08/11/2018 Patient feels a little bit better today, he feels stronger area that her eating compared to yesterday. No overt respiratory symptoms or chest pain. He is hemodynamically stable. His WBC 0.2, platelets 10, hemoglobin 7.1, creatinine is 0.7. Liver enzymes are slightly trending down. Patient seemed remains on chemotherapy and oncology team R following closely Objective - Vital Signs Vital signs: Vital Signs Temp 97.8 F 08/11/18 14:01 Pulse 76 08/11/18 14:01 Resp 18 08/11/18 14:01 BP 102/55 08/11/18 14:01 Pulse Ox 99 08/11/18 14:01 Intake & Output 08/10/18 08/11/18 08/11/18 18:59 06:59 18:59 Intake Total 303 800 218 Output Total 800 Balance 303 800 -582 Weight 67.5 kg Intake: Intake, IV Titration 350 Amount Meropenem 1 gm In Sodium 100 Chloride 0.9% 100 ml @ 200 mls/hr IVPB Q8HR [facility] Rx#:[id number] Vancomycin 1,250 mg In 250 Sodium Chloride 0.9% 250 ml @ 125 mls/hr IVPB Q12H [facility] Rx#:[id number] Oral 450 Blood Product 303 218 Platelet Irr Pheresis 2 218 Acda Unit [id number] Platelet Irr Pheresis 303 Acda1 Unit [id number] Output: Urine 800 Other: Voiding Method Urinal Urinal Urinal Diaper Incontinent Incontinent Incontinent # Voids 2 1 4 # Bowel Movements 1 1 - Exam GENERAL: Cachectic and chronically ill appearing. Temporal wasting HEENT: Pallor positive. Oral mucosa looks much better compared to couple of days back. CARDIOVASCULAR: S1 and S2 present. No murmurs, rubs, or gallops. tachycardic PULMONARY: Bilateral expiratory wheezes. Diminished breath sounds at the lower lung tristan. ABDOMEN: Soft, nontender, nondistended, normoactive bowel sounds. No palpable organomegaly. MUSCULOSKELETAL: No joint swelling or deformity. EXTREMITIES: No cyanosis, clubbing, or pedal edema. NEUROLOGICAL: Gross neurological examination did not reveal any focal deficits. - Labs CBC & Chem 7: 08/11/18 06:24 08/11/18 06:24 Labs: Abnormal Lab Results - Last 24 Hours (Table) 08/11/18 08/11/18 Range/Units 06:24 06:24 WBC 0.2 L* (3.8-10.6) k/uL RBC 2.52 L (4.30-5.90) m/uL Hgb 7.1 L (13.0-17.5) gm/dL Hct 21.3 L (39.0-53.0) % RDW 17.2 H (11.5-15.5) % Plt Count 10 L* D (150-450) k/uL Chloride 111 H (98-107) mmol/L Uric Acid 1.8 L (3.5-8.5) mg/dL Calcium 8.1 L (8.4-10.2) mg/dL Phosphorus 2.0 L (2.5-4.5) mg/dL AST 101 H (17-59) U/L ALT 192 H (21-72) U/L Alkaline Phosphatase 431 H (38-126) U/L Lactate Dehydrogenase 714 H (313-618) U/L Total Protein 5.1 L (6.3-8.2) g/dL Albumin 2.5 L (3.5-5.0) g/dL Assessment and Plan Assessment: Pancytopenia Fever, with neutropenia, on broad spectum antibiotic Acute myelogenous leukemia, on oral chemotherapy Elevated liver function tests, improving gradually Generalized weakness history of Congestive heart failure - chronic systolic with ejection fraction of 35%-not in exacerbation recent Sustained V. tach - possibily due to hypomagnesemia, Heart rate is stable currently Plan: Patient has been started on chemotherapy by oncology - day 5/out of 7, today. Patient still has pancytopenia and fever. continue with broad spectrum antibiotic. And patient reports that he feels better overall. Continue with fluconazole, vancomycin and meropenem. Blood cultures and urine cultures no growth so far. But overall prognosis is still poor. several consultants are following the pt including oncology and GI angelo and ID team as well . Further recommendations to follow depending on the progress of the patient. DVT px: no heparin in view of his severe thrombocytopenia GI px: protonix
[2018-08-12] MEDS: MAG HYDROX/AL HYDROX/SIMETH 30 ML, LIDOCAINE VISCOUS 30 ML, diphenhydrAMINE ELIXIR 75 M... PO SCH ×28 (00:05→23:32)
[2018-08-12] MEDS: SALT AND SODA MOUTHWASH 1,000 ML PO SCH ×6 (00:05→23:32)
[2018-08-12] MEDS: MEROPENEM 1 GM in SODIUM CHLORIDE 0.9% 100 ML IVPB SCH ×4 (00:09→23:32)
--- NOTE | 2018-08-12 07:33 | P.PN ---
Subjective Mr. Nevarez is a 62-year-old gentleman admitted with severe symptomatic anemia. Patient has acute myelogenous leukemia with fevers. He is currently being followed by multiple consultants. He is on broad-spectrum antibiotics including meropenem and fluconazole. Patient had sustained V. tach which was believed to be secondary to hypomagnesemia. Patient has congestive heart failure with ejection fraction around 35%. He has severe leukocytosis. On 08/07/18 -Today patient is lying in the bed. He is cachectic and chronically ill appearing. He has been transferred to the oncology floor yesterday and started on chemotherapy. Patient states that he still weak but feeling a little better today. He reports that his leukocytosis is improved and he is able to tolerate a small amount of his diet. He continues to have fevers, highest recorded over the past 24 hours is 100.9. Patient denies having any chest pain or difficulty in breathing. He denies having any abdominal pain nausea vomiting or diarrhea. No dysuria or hematuria. Denies having any headaches or blurring of his vision or focal weakness. On 08/08/18 - patient is lying in bed. He states overall he is improving. He is cachectic. Appears to be no acute distress. Chemotherapy has been initiated by oncology team, Dr. Raymond villafana. His been tolerating okay. Patient states his appetite is still bad and he is not able to eat much. On 08/09/18 - patient is lying in bed. Appears to be no acute distress. As per the nursing staff report, patient's appetite is much better. Patient also reports that his oral mucosa is less painful and that he is able to eat more. Overall patient reports feeling much better. Patient is getting his chemotherapy-day 4 today. On review of systems - constitutional- history unless weakness and fatigue. No chest pain or palpitations. No cough or difficulty in breathing. No abdominal pain nausea vomiting or diarrhea. No dysuria or hematuria. 08/10/2018 Patient today with fully awake and oriented. He is generally weak. His appetite is nondisplaced and he is eating a little bit however he has no nausea vomiting or abdominal pain. She still fatigue with no respiratory signs and symptoms. No chest pain and or dyspnea. He is hemodynamically stable. However he still have fever of 100.1 today. And labs show still severe pancytopenia with WBC of 0.3, hemoglobin of 7.8 and platelets 6. His BMP was unremarkable. Liver enzymes are trending down slowly. He remains on chemotherapy orally and oncology team are following the patient closely. He still on antibiotic as meropenem and vancomycin and acyclovir. An infectious disease are evaluated the patient. 08/11/2018 Patient feels a little bit better today, he feels stronger area that her eating compared to yesterday. No overt respiratory symptoms or chest pain. He is hemodynamically stable. His WBC 0.2, platelets 10, hemoglobin 7.1, creatinine is 0.7. Liver enzymes are slightly trending down. Patient seemed remains on chemotherapy and oncology team R following closely 08/12/2018 Patient continued to improve regarding his strength and appetite. He has occasional cough with no phlegm or chest pain. No dyspnea. He denies abdominal pain or change in urine or bowel habits. He has no blood in his stool and no dark-colored stool. Vitals looks stable. Labs from today are pending. Today is getting the last dose of his oral chemotherapy. We are going to repeat his CT of the thorax for follow-up of his pulmonary nodules Objective - Vital Signs Vital signs: Vital Signs Temp 97.9 F 08/12/18 05:00 Pulse 102 H 08/12/18 05:00 Resp 18 08/12/18 05:00 BP 109/55 08/12/18 05:00 Pulse Ox 94 L 08/12/18 05:00 Intake & Output 08/11/18 08/12/18 08/12/18 18:59 06:59 18:59 Intake Total 818 Output Total 800 Balance 18 Weight 64.5 kg Intake: Intake, IV Titration 600 Amount Meropenem 1 gm In Sodium 200 Chloride 0.9% 100 ml @ 200 mls/hr IVPB Q8HR [facility] Rx#:[id number] Ondansetron 16 mg In 50 Sodium Chloride 0.9% 50 ml @ 232 mls/hr IVPB Q24H [facility] Rx#:[id number] Vancomycin 1,250 mg In 250 Sodium Chloride 0.9% 250 ml @ 125 mls/hr IVPB Q12H [facility] Rx#:[id number] azaCITIDine 140 mg In 100 Sodium Chloride 0.9% 100 ml @ 684 mls/hr IV Q24H [facility] Rx#:[id number] Blood Product 218 Platelet Irr Pheresis 2 218 Acda Unit [id number] Output: Urine 800 Other: Voiding Method Urinal Urinal Incontinent Incontinent # Voids 4 2 # Bowel Movements 1 - Exam GENERAL: Cachectic and chronically ill appearing. Temporal wasting HEENT: Pallor positive. Oral mucosa looks much better compared to couple of days back. CARDIOVASCULAR: S1 and S2 present. No murmurs, rubs, or gallops. tachycardic PULMONARY: Bilateral expiratory wheezes. Diminished breath sounds at the lower lung tristan. ABDOMEN: Soft, nontender, nondistended, normoactive bowel sounds. No palpable organomegaly. MUSCULOSKELETAL: No joint swelling or deformity. EXTREMITIES: No cyanosis, clubbing, or pedal edema. NEUROLOGICAL: Gross neurological examination did not reveal any focal deficits. - Labs CBC & Chem 7: 08/11/18 06:24 08/11/18 06:24 Labs: Abnormal Lab Results - Last 24 Hours (Table) 08/11/18 Range/Units 06:24 WBC 0.2 L* (3.8-10.6) k/uL RBC 2.52 L (4.30-5.90) m/uL Hgb 7.1 L (13.0-17.5) gm/dL Hct 21.3 L (39.0-53.0) % RDW 17.2 H (11.5-15.5) % Plt Count 10 L* D (150-450) k/uL Assessment and Plan Assessment: Acute myelogenous leukemia, on oral chemotherapy Pancytopenia, secondary to above Fever, with neutropenia, on broad spectum antibiotic. Elevated liver function tests, improving gradually Generalized weakness. Improving history of Congestive heart failure - chronic systolic with ejection fraction of 35%-not in exacerbation recent Sustained V. tach - possibily due to hypomagnesemia, Heart rate is stable currently Plan: Patient has been started on chemotherapy by oncology - day 7/out of 7, today. Patient still has pancytopenia and fever. continue with broad spectrum antibiotic. And patient reports that he feels better overall. Continue with fluconazole, vancomycin and meropenem. Blood cultures and urine cultures no growth so far. But overall prognosis is still poor. several consultants are following the pt including oncology and GI angelo and ID team as well . Further recommendations to follow depending on the progress of the patient. DVT px: no heparin in view of his severe thrombocytopenia GI px: protonix
[2018-08-12] MEDS: ACYCLOVIR 200 MG CAP PO SCH ×2 (08:22→21:28)
[2018-08-12] MEDS: POTASSIUM CHLORIDE ER 20 MEQ TAB.ER PO SCH ×2 (08:22→21:28)
[2018-08-12] MEDS: FERROUS SULFATE 325 MG TAB PO SCH (08:22)
[2018-08-12] MEDS: ASCORBIC ACID 500 MG TAB PO SCH (08:22)
[2018-08-12] MEDS: ALLOPURINOL 300 MG TAB PO SCH (08:22)
[2018-08-12] MEDS: FOLIC ACID 1 MG TAB PO SCH (08:22)
[2018-08-12] MEDS: FLUCONAZOLE 100 MG TAB PO SCH (08:22)
[2018-08-12] MEDS: PANTOPRAZOLE 40 MG TABLET PO SCH ×2 (08:22→08:53)
[2018-08-12] MEDS: METOPROLOL SUCCINATE (ER) 50 MG TAB.ER.24H PO SCH ×2 (08:23→21:28)
[2018-08-12 09:36] LABS: ALT 127 U/L (21-72); AST 44 U/L (17-59); Albumin 2.5 g/dL (3.5-5.0); Alkaline Phosphatase 321 U/L (38-126); Anion Gap 5 mmol/L; Blood Urea Nitrogen 16 mg/dL (9-20); Calcium 7.9 mg/dL (8.4-10.2); Carbon Dioxide 23 mmol/L (22-30); Chloride 109 mmol/L (98-107); Glucose 97 mg/dL (74-99); LDH 576 U/L (313-618); Magnesium 1.9 mg/dL (1.6-2.3); Potassium 3.9 mmol/L (3.5-5.1); Sodium 137 mmol/L (137-145); Total Bilirubin 1.2 mg/dL (0.2-1.3); Total Protein 5.1 g/dL (6.3-8.2)
[2018-08-12 09:38] LABS: Anisocytosis Slight; HCT 20.6 % (39.0-53.0); MCH 26.7 pg (25.0-35.0); MCHC 31.6 g/dL (31.0-37.0); MCV 84.6 fL (80.0-100.0); Mean Platelet Volume 6.9; RBC 2.44 m/uL (4.30-5.90)
[2018-08-12 09:44] LABS: WBC 0.2 k/uL (3.8-10.6)
[2018-08-12 09:49] LABS: HGB 6.5 gm/dL (13.0-17.5); Platelet Count 11 k/uL (150-450)
[2018-08-12] MEDS ORDERED: Magnesium Replacement Protocol 1 EACH MISC MISCELLANE PRN (10:22)
[2018-08-12] MEDS ORDERED: Potassium Replacement Protocol 1 EACH MISC MISCELLANE PRN (10:22)
[2018-08-12] MEDS ORDERED: POTASSIUM CHLORIDE ER 20 MEQ TAB.ER PO SCH (11:00)
--- NOTE | 2018-08-12 11:06 | CT ---
EXAMINATION TYPE: CT chest wo con DATE OF EXAM: 08/12/2018 COMPARISON: 06/05/2018 HISTORY: Pulmonary Nodules CT DLP: 193.8 mGycm, Automated exposure control for dose reduction was used. CONTRAST: Performed injected with 0 mL of Isovue 300. TECHNIQUE: Axial images were obtained at 5 mm thick sections. Reconstructed images are reviewed on [place] computer in the coronal plane. FINDINGS: Portion of the thyroid visualized is normal. Some mild scarring appears to be at the lung apices. There is an area of pneumonitis within the left upper lobe. Series 4 image 15. Scattered areas of peripheral pneumonitis are present larger areas in the periphery of the left upper lung field measuring 1.7 x 1.1 cm. Series 4 image 19. There is a new density within the periphery of the right upper lobe measuring 3.2 x 3.0 cm in largest dimensions. Se saw 4 image 22. This has extension towards the right hilar region. There is an area of pneumonitis i n the superior segment left lower lobe. Series 4 image 32 small densities in the posterior lateral le ft lung measuring 0.6 cm. Series 4 image 37. Punctate nodular densities in the posterior medial left lung measuring 0.4 cm. Series 4 image 37. There is a nodular density within the posterior left lung m easuring 0.7 cm. Series 4 image 47. Previous spiculated mass in the periphery of the right upper lobe is at the same level may be similar to the comparison study currently measures 1.1 x 1.2 cm. Visually this appears slightly less full. There is a new masslike area in the periphery of the right lower lobe. Series 4 image 40. This measur es 2.5 x 2.6 cm in size. There may be a new density adjacent to the interval development of a small r ight pleural effusion. This mass area is estimated at 1.1 x 3.2 cm based on measurements of series 4 image 40. No enlarged mediastinal or hilar adenopathy is evident. Some shotty pretracheal lymphadenopathy is present. Lack of contrast limits evaluation at the right hilum. Right hilar adenopathy is not exclude d The ascending aorta diameter at the level of the main pulmonary artery is 3.3 cm. The main pulmona ry artery diameter at the bifurcation is 2.4 cm. Note is made of coronary artery calcification. Limited CT sections are obtained through the upper abdomen. Cholelithiasis is noted. Vascular calcifi cation of the kidneys is noted. IMPRESSIONS: 1. New masslike area right lower lobe discussed above. 2. New area of suspicious pneumonitis right upper lobe with extension towards the right hilum. 3. New small right pleural effusion. There may be an adjacent mass or atelectasis at the right lung b ase. 4. There are additional new areas of pneumonitis and smaller nodules noted bilaterally. 5. Consider additional workup with PET CT. New primary should be considered.
[2018-08-12] MEDS: VANCOMYCIN 1,250 MG in SODIUM CHLORIDE 0.9% 250 ML IVPB SCH ×2 (11:14→22:13)
--- NOTE | 2018-08-12 13:09 | P.PN ---
Subjective Progress Note Date: 08/12/18 The patient reports generalized weakness, but states that he feels reasonably well otherwise. He denies any chest pain. No obvious bleeding. No significant diarrhea. Appetite is maintained Objective - Vital Signs Vital signs: Vital Signs Temp 97.5 F L 08/12/18 13:00 Pulse 93 08/12/18 13:00 Resp 16 08/12/18 13:00 BP 88/53 08/12/18 13:00 Pulse Ox 95 08/12/18 13:00 Intake & Output 08/11/18 08/12/18 08/12/18 18:59 06:59 18:59 Intake Total 818 Output Total 800 Balance 18 Weight 64.5 kg Intake: Intake, IV Titration 600 Amount Meropenem 1 gm In Sodium 200 Chloride 0.9% 100 ml @ 200 mls/hr IVPB Q8HR [facility] Rx#:[id number] Ondansetron 16 mg In 50 Sodium Chloride 0.9% 50 ml @ 232 mls/hr IVPB Q24H [facility] Rx#:[id number] Vancomycin 1,250 mg In 250 Sodium Chloride 0.9% 250 ml @ 125 mls/hr IVPB Q12H [facility] Rx#:[id number] azaCITIDine 140 mg In 100 Sodium Chloride 0.9% 100 ml @ 684 mls/hr IV Q24H [facility] Rx#:[id number] Blood Product 218 Platelet Irr Pheresis 2 218 Acda Unit [id number] Output: Urine 800 Other: Voiding Method Urinal Urinal Urinal Incontinent Incontinent Incontinent # Voids 4 2 # Bowel Movements 1 - Constitutional General appearance: Present: no acute distress - EENT EENT Comment(s): Dry tongue mucosa. Edentulous except one upper incisor Eyes: Present: EOMI ENT: Present: hearing grossly normal - Respiratory Respiratory: bilateral: CTA - Cardiovascular Rhythm: regular Heart sounds: normal: S1, S2 - Gastrointestinal General gastrointestinal: Present: normal bowel sounds, soft - Integumentary Integumentary: Present: normal - Neurologic Neurologic: Present: CNII-XII intact - Musculoskeletal Musculoskeletal: Present: generalized weakness - Labs CBC & Chem 7: 08/12/18 08:55 08/12/18 08:55 Labs: Abnormal Lab Results - Last 24 Hours (Table) 08/12/18 08/12/18 08/12/18 Range/Units 08:55 08:55 08:55 WBC 0.2 L* (3.8-10.6) k/uL RBC 2.44 L (4.30-5.90) m/uL Hgb 6.5 L* (13.0-17.5) gm/dL Hct 20.6 L (39.0-53.0) % RDW 17.0 H (11.5-15.5) % Plt Count 11 L* (150-450) k/uL Chloride 109 H (98-107) mmol/L Uric Acid 2.0 L (3.5-8.5) mg/dL Calcium 7.9 L (8.4-10.2) mg/dL Phosphorus 2.0 L (2.5-4.5) mg/dL ALT 127 H (21-72) U/L Alkaline Phosphatase 321 H (38-126) U/L Total Protein 5.1 L (6.3-8.2) g/dL Albumin 2.5 L (3.5-5.0) g/dL Crossmatch See Detail Assessment and Plan (1) Acute myelogenous leukemia Narrative/Plan: The patient is day #6 of his salvage regimen of Vidaza and Venetoclax. Subjectively, he is tolerating his regimen well. He appears to be responding well with satisfactory cytoreduction. WBC has decreased to 0.2. - Continue regimen per protocol - Continue to monitor for evidence of tumor lysis. Labs indicate no evidence of far. Continue allopurinol Current Visit: Yes Status: Acute Priority: High Code(s): C92.00 - ACUTE MYELOBLASTIC LEUKEMIA, NOT HAVING ACHIEVED REMISSION SNOMED Code(s): 36043921 (2) Pancytopenia Narrative/Plan: Due to underlying AML, and effect of treatment. Patient received platelets yesterday. Hemoglobin is 6.5 today. Transfuse 1 unit of PRBC. Continue to monitor and transfuse for hemoglobin less than 7 and platelets less than 10 Current Visit: Yes Status: Acute Priority: High Code(s): D61.818 - OTHER PANCYTOPENIA SNOMED Code(s): 921629932 (3) Weakness Current Visit: Yes Status: Acute Code(s): R53.1 - WEAKNESS SNOMED Code(s): 78919563 (4) Neutropenia with fever Narrative/Plan: The fever has essentially resolved. Cultures remain negative. Continue antibiotics per ID. After completion of the Vidaza, if the patient is afebrile, discuss with ID about switching to a broad-spectrum prophylactic oral regimen Current Visit: No Status: Acute Code(s): D70.9 - NEUTROPENIA, UNSPECIFIED; R50.81 - FEVER PRESENTING WITH CONDITIONS CLASSIFIED ELSEWHERE SNOMED Code(s): 755646930
[2018-08-12] MEDS: MAGNESIUM SULFATE-D5W PMX 1 GM in DEXTROSE/WATER 1 100ML.BAG IVPB SCH ×2 (13:31→17:27)
[2018-08-12] MEDS: ONDANSETRON 16 MG in SODIUM CHLORIDE 0.9% 50 ML IVPB SCH (14:36)
[2018-08-12] MEDS: VENETOCLAX 100 MG PO SCH (14:55)
[2018-08-13] MEDS: ACETAMINOPHEN TAB 500 MG TAB PO PRN ×2 (00:23→20:45)
[2018-08-13] MEDS: MAG HYDROX/AL HYDROX/SIMETH 30 ML, LIDOCAINE VISCOUS 30 ML, diphenhydrAMINE ELIXIR 75 M... PO SCH ×24 (04:00→23:35)
[2018-08-13] MEDS: SALT AND SODA MOUTHWASH 1,000 ML PO SCH ×5 (05:14→23:35)
[2018-08-13] MEDS: MEROPENEM 1 GM in SODIUM CHLORIDE 0.9% 100 ML IVPB SCH ×3 (08:31→23:03)
[2018-08-13] MEDS: METOPROLOL SUCCINATE (ER) 50 MG TAB.ER.24H PO SCH ×2 (08:31→20:44)
[2018-08-13] MEDS: PANTOPRAZOLE 40 MG TABLET PO SCH (08:32)
[2018-08-13] MEDS: FLUCONAZOLE 100 MG TAB PO SCH (08:32)
[2018-08-13] MEDS: ASCORBIC ACID 500 MG TAB PO SCH (08:32)
[2018-08-13] MEDS: FERROUS SULFATE 325 MG TAB PO SCH (08:32)
[2018-08-13] MEDS: ALLOPURINOL 300 MG TAB PO SCH (08:32)
[2018-08-13] MEDS: FOLIC ACID 1 MG TAB PO SCH (08:32)
[2018-08-13] MEDS: POTASSIUM CHLORIDE ER 20 MEQ TAB.ER PO SCH ×2 (08:32→20:44)
[2018-08-13] MEDS: ACYCLOVIR 200 MG CAP PO SCH ×2 (08:32→20:45)
[2018-08-13] MEDS ORDERED: VANCOMYCIN TROUGH DUE 1 EACH MISC MISCELLANE ONE (09:00)
[2018-08-13 09:01] LABS: Anisocytosis Slight; HGB 7.4 gm/dL (13.0-17.5); MCH 27.5 pg (25.0-35.0); MCHC 33.4 g/dL (31.0-37.0); MCV 82.3 fL (80.0-100.0); Mean Platelet Volume 6.4; Poikilocytosis Slight; RBC 2.68 m/uL (4.30-5.90); RDW 16.5 % (11.5-15.5)
[2018-08-13 09:10] LABS: WBC 0.2 k/uL (3.8-10.6)
[2018-08-13 09:11] LABS: Platelet Count 6 k/uL (150-450)
[2018-08-13 09:24] LABS: ALT 121 U/L (21-72); AST 59 U/L (17-59); Albumin 2.4 g/dL (3.5-5.0); Alkaline Phosphatase 346 U/L (38-126); Anion Gap 3 mmol/L; Blood Urea Nitrogen 14 mg/dL (9-20); Calcium 7.9 mg/dL (8.4-10.2); Carbon Dioxide 24 mmol/L (22-30); Chloride 109 mmol/L (98-107); Glucose 94 mg/dL (74-99); LDH 533 U/L (313-618); Magnesium 2.2 mg/dL (1.6-2.3); Phosphorus 1.7 mg/dL (2.5-4.5); Potassium 4.2 mmol/L (3.5-5.1); Sodium 136 mmol/L (137-145); Total Bilirubin 1.4 mg/dL (0.2-1.3); Uric Acid 1.6 mg/dL (3.5-8.5)
[2018-08-13] MEDS: VANCOMYCIN 1,000 MG in SODIUM CHLORIDE 0.9% 250 ML IVPB SCH ×2 (10:27→21:01)
[2018-08-13] MEDS: VENETOCLAX 100 MG PO SCH (13:07)
--- NOTE | 2018-08-13 14:01 | P.PN ---
Subjective Mr. Nevarez is a 62-year-old gentleman admitted with severe symptomatic anemia. Patient has acute myelogenous leukemia with fevers. He is currently being followed by multiple consultants. He is on broad-spectrum antibiotics including meropenem and fluconazole. Patient had sustained V. tach which was believed to be secondary to hypomagnesemia. Patient has congestive heart failure with ejection fraction around 35%. He has severe leukocytosis. On 08/07/18 -Today patient is lying in the bed. He is cachectic and chronically ill appearing. He has been transferred to the oncology floor yesterday and started on chemotherapy. Patient states that he still weak but feeling a little better today. He reports that his leukocytosis is improved and he is able to tolerate a small amount of his diet. He continues to have fevers, highest recorded over the past 24 hours is 100.9. Patient denies having any chest pain or difficulty in breathing. He denies having any abdominal pain nausea vomiting or diarrhea. No dysuria or hematuria. Denies having any headaches or blurring of his vision or focal weakness. On 08/08/18 - patient is lying in bed. He states overall he is improving. He is cachectic. Appears to be no acute distress. Chemotherapy has been initiated by oncology team, Dr. Raymond villafana. His been tolerating okay. Patient states his appetite is still bad and he is not able to eat much. On 08/09/18 - patient is lying in bed. Appears to be no acute distress. As per the nursing staff report, patient's appetite is much better. Patient also reports that his oral mucosa is less painful and that he is able to eat more. Overall patient reports feeling much better. Patient is getting his chemotherapy-day 4 today. On review of systems - constitutional- history unless weakness and fatigue. No chest pain or palpitations. No cough or difficulty in breathing. No abdominal pain nausea vomiting or diarrhea. No dysuria or hematuria. 08/10/2018 Patient today with fully awake and oriented. He is generally weak. His appetite is nondisplaced and he is eating a little bit however he has no nausea vomiting or abdominal pain. She still fatigue with no respiratory signs and symptoms. No chest pain and or dyspnea. He is hemodynamically stable. However he still have fever of 100.1 today. And labs show still severe pancytopenia with WBC of 0.3, hemoglobin of 7.8 and platelets 6. His BMP was unremarkable. Liver enzymes are trending down slowly. He remains on chemotherapy orally and oncology team are following the patient closely. He still on antibiotic as meropenem and vancomycin and acyclovir. An infectious disease are evaluated the patient. 08/11/2018 Patient feels a little bit better today, he feels stronger area that her eating compared to yesterday. No overt respiratory symptoms or chest pain. He is hemodynamically stable. His WBC 0.2, platelets 10, hemoglobin 7.1, creatinine is 0.7. Liver enzymes are slightly trending down. Patient seemed remains on chemotherapy and oncology team R following closely 08/12/2018 Patient continued to improve regarding his strength and appetite. He has occasional cough with no phlegm or chest pain. No dyspnea. He denies abdominal pain or change in urine or bowel habits. He has no blood in his stool and no dark-colored stool. Vitals looks stable. Labs from today are pending. Today is getting the last dose of his oral chemotherapy. We are going to repeat his CT of the thorax for follow-up of his pulmonary nodules 08/13/2018 Patient continued to improve gradually. No specific symptoms today. He has better appetite and strength although he feels generally weak. Patient is afebrile and hemodynamically stable. WBC 0.2. Hemoglobin 7.4 after went of blood transfusion. Platelets 6. BMP was unremarkable. Liver enzymes improving gradually. Patient remains on broad-spectrum antibiotics. Objective - Vital Signs Vital signs: Vital Signs Temp 98.6 F 08/13/18 12:53 Pulse 85 08/13/18 12:53 Resp 17 08/13/18 12:53 BP 106/60 08/13/18 12:53 Pulse Ox 98 08/13/18 12:53 Intake & Output 08/12/18 08/13/18 08/13/18 18:59 06:59 18:59 Intake Total 660 450 240 Output Total 1 102 101 Balance 659 348 139 Weight 64.5 kg Intake: Intake, IV Titration 350 350 Amount Meropenem 1 gm In Sodium 100 100 Chloride 0.9% 100 ml @ 200 mls/hr IVPB Q8HR [facility] Rx#:[id number] Vancomycin 1,250 mg In 250 250 Sodium Chloride 0.9% 250 ml @ 125 mls/hr IVPB Q12H [facility] Rx#:[id number] Oral 100 240 Blood Product 310 Rc Irr As3 Unit 310 [id number] Output: Urine 100 100 Stool 1 2 1 Other: Voiding Method Urinal Urinal Urinal Incontinent Incontinent # Voids 2 2 # Bowel Movements 2 2 - Exam GENERAL: Cachectic and chronically ill appearing. Temporal wasting HEENT: Pallor positive. Oral mucosa looks much better compared to couple of days back. CARDIOVASCULAR: S1 and S2 present. No murmurs, rubs, or gallops. tachycardic PULMONARY: Bilateral expiratory wheezes. Diminished breath sounds at the lower lung tristan. ABDOMEN: Soft, nontender, nondistended, normoactive bowel sounds. No palpable organomegaly. MUSCULOSKELETAL: No joint swelling or deformity. EXTREMITIES: No cyanosis, clubbing, or pedal edema. NEUROLOGICAL: Gross neurological examination did not reveal any focal deficits. - Labs CBC & Chem 7: 08/13/18 08:34 08/13/18 08:34 Labs: Abnormal Lab Results - Last 24 Hours (Table) 08/12/18 08/13/18 08/13/18 Range/Units 08:55 08:34 08:34 WBC 0.2 L* (3.8-10.6) k/uL RBC 2.68 L (4.30-5.90) m/uL Hgb 7.4 L (13.0-17.5) gm/dL Hct 22.0 L (39.0-53.0) % RDW 16.5 H (11.5-15.5) % Plt Count 6 L* (150-450) k/uL Sodium 136 L (137-145) mmol/L Chloride 109 H (98-107) mmol/L Uric Acid 1.6 L (3.5-8.5) mg/dL Calcium 7.9 L (8.4-10.2) mg/dL Phosphorus 1.7 L (2.5-4.5) mg/dL Total Bilirubin 1.4 H (0.2-1.3) mg/dL ALT 121 H (21-72) U/L Alkaline Phosphatase 346 H (38-126) U/L Total Protein 5.0 L (6.3-8.2) g/dL Albumin 2.4 L (3.5-5.0) g/dL Crossmatch See Detail Assessment and Plan Assessment: Acute myelogenous leukemia, on oral chemotherapy Pancytopenia, secondary to above Fever, with neutropenia, on broad spectum antibiotic. Elevated liver function tests, improving gradually Generalized weakness. Improving history of Congestive heart failure - chronic systolic with ejection fraction of 35%-not in exacerbation recent Sustained V. tach - possibily due to hypomagnesemia, Heart rate is stable currently Plan: Patient has been started on chemotherapy by oncology - day 7/out of 7, today. Patient still has pancytopenia and fever. continue with broad spectrum antibiotic. And patient reports that he feels better overall. Continue with fluconazole, vancomycin and meropenem. Blood cultures and urine cultures no growth so far. But overall prognosis is still poor. several consultants are following the pt including oncology and GI angelo and ID team as well . Further recommendations to follow depending on the progress of the patient. DVT px: no heparin in view of his severe thrombocytopenia GI px: protonix
--- NOTE | 2018-08-13 17:02 | P.PN ---
Subjective Progress Note Date: 08/13/18 The patient continues to have generalized weakness. He denies any other specific symptoms such as fevers/chills/significant mouth sores, or obvious bleeding. He states that his bowel movements are formed. Appetite is somewhat diminished but he feels he is maintaining by mouth intake Objective - Vital Signs Vital signs: Vital Signs Temp 98.6 F 08/13/18 12:53 Pulse 85 08/13/18 16:00 Resp 16 08/13/18 16:00 BP 106/60 08/13/18 12:53 Pulse Ox 98 08/13/18 12:53 Intake & Output 08/12/18 08/13/18 08/13/18 18:59 06:59 18:59 Intake Total 146 230 5986 Output Total 1 102 1002 Balance 659 348 328 Weight 64.5 kg 64.5 kg Intake: Intake, IV Titration 350 350 350 Amount Meropenem 1 gm In Sodium 100 100 100 Chloride 0.9% 100 ml @ 200 mls/hr IVPB Q8HR [facility] Rx#:[id number] Vancomycin 1,000 mg In 250 Sodium Chloride 0.9% 250 ml @ 125 mls/hr IVPB Q12H [facility] Rx#:[id number] Vancomycin 1,250 mg In 250 250 Sodium Chloride 0.9% 250 ml @ 125 mls/hr IVPB Q12H [facility] Rx#:[id number] Oral 100 980 Blood Product 310 Rc Irr As3 Unit 310 [id number] Output: Urine 100 1000 Stool 1 2 2 Other: Voiding Method Urinal Urinal Urinal Incontinent Incontinent # Voids 2 4 # Bowel Movements 2 1 - Constitutional General appearance: Present: no acute distress - EENT EENT Comment(s): Edentulous, mild scattered mucositis Eyes: Present: EOMI ENT: Present: hearing grossly normal - Respiratory Respiratory: bilateral: CTA - Cardiovascular Rhythm: regular Heart sounds: normal: S1, S2 - Gastrointestinal General gastrointestinal: Present: normal bowel sounds, soft - Integumentary Integumentary: Present: normal - Neurologic Neurologic: Present: CNII-XII intact - Musculoskeletal Musculoskeletal: Present: generalized weakness, strength equal bilaterally - Psychiatric Psychiatric: Present: A&O x's 3, appropriate affect - Labs CBC & Chem 7: 08/13/18 08:34 08/13/18 08:34 Labs: Abnormal Lab Results - Last 24 Hours (Table) 08/13/18 08/13/18 Range/Units 08:34 08:34 WBC 0.2 L* (3.8-10.6) k/uL RBC 2.68 L (4.30-5.90) m/uL Hgb 7.4 L (13.0-17.5) gm/dL Hct 22.0 L (39.0-53.0) % RDW 16.5 H (11.5-15.5) % Plt Count 6 L* (150-450) k/uL Sodium 136 L (137-145) mmol/L Chloride 109 H (98-107) mmol/L Uric Acid 1.6 L (3.5-8.5) mg/dL Calcium 7.9 L (8.4-10.2) mg/dL Phosphorus 1.7 L (2.5-4.5) mg/dL Total Bilirubin 1.4 H (0.2-1.3) mg/dL ALT 121 H (21-72) U/L Alkaline Phosphatase 346 H (38-126) U/L Total Protein 5.0 L (6.3-8.2) g/dL Albumin 2.4 L (3.5-5.0) g/dL Assessment and Plan (1) Acute myelogenous leukemia Narrative/Plan: The patient is continuing on salvage treatment with Vidaza and Venetoclax. He will continue the latter by mouth, after completion of Vidaza. He has had satisfactory cytoreduction. No evidence of any tumor lysis. Continue to monitor for the same. Bone marrow will be repeated after week 3 Current Visit: Yes Status: Acute Priority: High Code(s): C92.00 - ACUTE MYELOBLASTIC LEUKEMIA, NOT HAVING ACHIEVED REMISSION SNOMED Code(s): 13649014 (2) Pancytopenia Narrative/Plan: Hemoglobin was greater than 7 today. Platelets were down to 6000. 1 unit of platelet transfusion was ordered. No active bleeding noted. Continue to monitor with transfusion support as needed to keep hemoglobin greater than 7 and platelets greater than 10 Current Visit: Yes Status: Acute Priority: High Code(s): D61.818 - OTHER PANCYTOPENIA SNOMED Code(s): 232844168 (3) Weakness Current Visit: Yes Status: Acute Code(s): R53.1 - WEAKNESS SNOMED Code(s): 08521398 (4) Neutropenia with fever Narrative/Plan: Fever has not recurred. If remains afebrile after completion of Vidaza, can potentially be discharged home on an oral antibiotic regimen which we will have to formulate according to ID recommendations Current Visit: No Status: Acute Code(s): D70.9 - NEUTROPENIA, UNSPECIFIED; R50.81 - FEVER PRESENTING WITH CONDITIONS CLASSIFIED ELSEWHERE SNOMED Code(s): 466861425
[2018-08-14] MEDS: MAG HYDROX/AL HYDROX/SIMETH 30 ML, LIDOCAINE VISCOUS 30 ML, diphenhydrAMINE ELIXIR 75 M... PO SCH ×24 (04:10→23:48)
[2018-08-14] MEDS: SALT AND SODA MOUTHWASH 1,000 ML PO SCH ×5 (04:50→23:48)
[2018-08-14 07:26] LABS: Anisocytosis Slight; HCT 20.8 % (39.0-53.0); HGB 7.1 gm/dL (13.0-17.5); MCH 27.7 pg (25.0-35.0); MCV 81.4 fL (80.0-100.0); Mean Platelet Volume 7.5; Poikilocytosis Slight; RBC 2.55 m/uL (4.30-5.90); RDW 16.4 % (11.5-15.5)
[2018-08-14 07:31] LABS: WBC 0.2 k/uL (3.8-10.6)
[2018-08-14 07:32] LABS: Platelet Count 18 k/uL (150-450)
[2018-08-14 07:38] LABS: ALT 120 U/L (21-72); AST 44 U/L (17-59); Albumin 2.6 g/dL (3.5-5.0); Alkaline Phosphatase 320 U/L (38-126); Anion Gap 3 mmol/L; Blood Urea Nitrogen 13 mg/dL (9-20); Calcium 7.9 mg/dL (8.4-10.2); Carbon Dioxide 24 mmol/L (22-30); Chloride 108 mmol/L (98-107); Glucose 94 mg/dL (74-99); LDH 514 U/L (313-618); Phosphorus 1.3 mg/dL (2.5-4.5); Potassium 4.1 mmol/L (3.5-5.1); Sodium 135 mmol/L (137-145); Total Bilirubin 1.4 mg/dL (0.2-1.3); Total Protein 5.3 g/dL (6.3-8.2); Uric Acid 1.5 mg/dL (3.5-8.5)
[2018-08-14] MEDS: ACYCLOVIR 200 MG CAP PO SCH ×2 (09:35→19:56)
[2018-08-14] MEDS: PANTOPRAZOLE 40 MG TABLET PO SCH (09:35)
[2018-08-14] MEDS: ALLOPURINOL 300 MG TAB PO SCH (09:35)
[2018-08-14] MEDS: MEROPENEM 1 GM in SODIUM CHLORIDE 0.9% 100 ML IVPB SCH ×3 (09:38→23:16)
[2018-08-14] MEDS: METOPROLOL SUCCINATE (ER) 50 MG TAB.ER.24H PO SCH ×2 (09:42→19:56)
[2018-08-14] MEDS: FOLIC ACID 1 MG TAB PO SCH (09:43)
[2018-08-14] MEDS: FLUCONAZOLE 100 MG TAB PO SCH (09:44)
[2018-08-14] MEDS: ASCORBIC ACID 500 MG TAB PO SCH (09:45)
[2018-08-14] MEDS: FERROUS SULFATE 325 MG TAB PO SCH (09:51)
[2018-08-14] MEDS: POTASSIUM CHLORIDE ER 20 MEQ TAB.ER PO SCH ×2 (09:51→19:56)
[2018-08-14] MEDS: traMADol 50 MG TAB PO PRN (10:27)
[2018-08-14] MEDS: VANCOMYCIN 1,000 MG in SODIUM CHLORIDE 0.9% 250 ML IVPB SCH ×2 (11:22→20:49)
--- NOTE | 2018-08-14 14:00 | P.PN ---
Subjective Mr. Nevarez is a 62-year-old gentleman admitted with severe symptomatic anemia. Patient has acute myelogenous leukemia with fevers. He is currently being followed by multiple consultants. He is on broad-spectrum antibiotics including meropenem and fluconazole. Patient had sustained V. tach which was believed to be secondary to hypomagnesemia. Patient has congestive heart failure with ejection fraction around 35%. He has severe leukocytosis. On 08/07/18 -Today patient is lying in the bed. He is cachectic and chronically ill appearing. He has been transferred to the oncology floor yesterday and started on chemotherapy. Patient states that he still weak but feeling a little better today. He reports that his leukocytosis is improved and he is able to tolerate a small amount of his diet. He continues to have fevers, highest recorded over the past 24 hours is 100.9. Patient denies having any chest pain or difficulty in breathing. He denies having any abdominal pain nausea vomiting or diarrhea. No dysuria or hematuria. Denies having any headaches or blurring of his vision or focal weakness. On 08/08/18 - patient is lying in bed. He states overall he is improving. He is cachectic. Appears to be no acute distress. Chemotherapy has been initiated by oncology team, Dr. Raymond villafana. His been tolerating okay. Patient states his appetite is still bad and he is not able to eat much. On 08/09/18 - patient is lying in bed. Appears to be no acute distress. As per the nursing staff report, patient's appetite is much better. Patient also reports that his oral mucosa is less painful and that he is able to eat more. Overall patient reports feeling much better. Patient is getting his chemotherapy-day 4 today. On review of systems - constitutional- history unless weakness and fatigue. No chest pain or palpitations. No cough or difficulty in breathing. No abdominal pain nausea vomiting or diarrhea. No dysuria or hematuria. 08/10/2018 Patient today with fully awake and oriented. He is generally weak. His appetite is nondisplaced and he is eating a little bit however he has no nausea vomiting or abdominal pain. She still fatigue with no respiratory signs and symptoms. No chest pain and or dyspnea. He is hemodynamically stable. However he still have fever of 100.1 today. And labs show still severe pancytopenia with WBC of 0.3, hemoglobin of 7.8 and platelets 6. His BMP was unremarkable. Liver enzymes are trending down slowly. He remains on chemotherapy orally and oncology team are following the patient closely. He still on antibiotic as meropenem and vancomycin and acyclovir. An infectious disease are evaluated the patient. 08/11/2018 Patient feels a little bit better today, he feels stronger area that her eating compared to yesterday. No overt respiratory symptoms or chest pain. He is hemodynamically stable. His WBC 0.2, platelets 10, hemoglobin 7.1, creatinine is 0.7. Liver enzymes are slightly trending down. Patient seemed remains on chemotherapy and oncology team R following closely 08/12/2018 Patient continued to improve regarding his strength and appetite. He has occasional cough with no phlegm or chest pain. No dyspnea. He denies abdominal pain or change in urine or bowel habits. He has no blood in his stool and no dark-colored stool. Vitals looks stable. Labs from today are pending. Today is getting the last dose of his oral chemotherapy. We are going to repeat his CT of the thorax for follow-up of his pulmonary nodules 08/13/2018 Patient continued to improve gradually. No specific symptoms today. He has better appetite and strength although he feels generally weak. Patient is afebrile and hemodynamically stable. WBC 0.2. Hemoglobin 7.4 after went of blood transfusion. Platelets 6. BMP was unremarkable. Liver enzymes improving gradually. Patient remains on broad-spectrum antibiotics. 07/15/2018 No change in the clinical condition of the patient with no new symptoms. No chest pain or dyspnea. His platelets slightly improving from 6 up to 18. Hemoglobin 7.1 and WBC 0.2. Creatinine 0.6. Distal flaps looks stable. Karime ent is hemodynamically stable. Oncology team are following Objective - Vital Signs Vital signs: Vital Signs Temp 96.1 F L 08/14/18 12:50 Pulse 89 08/14/18 12:50 Resp 15 08/14/18 12:50 BP 100/58 08/14/18 12:50 Pulse Ox 98 08/14/18 12:50 Intake & Output 08/13/18 08/14/18 08/14/18 18:59 06:59 18:59 Intake Total 1330 315 Output Total 1002 300 Balance 328 15 Weight 64.5 kg 64.5 kg Intake: Intake, IV Titration 350 Amount Meropenem 1 gm In Sodium 100 Chloride 0.9% 100 ml @ 200 mls/hr IVPB Q8HR [facility] Rx#:[id number] Vancomycin 1,000 mg In 250 Sodium Chloride 0.9% 250 ml @ 125 mls/hr IVPB Q12H [facility] Rx#:[id number] Oral 980 Blood Product 315 Platelet Irr Pheresis 2 315 Acda Unit [id number] Output: Urine 1000 300 Stool 2 Other: Voiding Method Urinal Urinal Urinal # Voids 4 5 # Bowel Movements 1 2 - Exam GENERAL: Cachectic and chronically ill appearing. Temporal wasting HEENT: Pallor positive. Oral mucosa looks much better compared to couple of days back. CARDIOVASCULAR: S1 and S2 present. No murmurs, rubs, or gallops. tachycardic PULMONARY: Bilateral expiratory wheezes. Diminished breath sounds at the lower lung tristan. ABDOMEN: Soft, nontender, nondistended, normoactive bowel sounds. No palpable organomegaly. MUSCULOSKELETAL: No joint swelling or deformity. EXTREMITIES: No cyanosis, clubbing, or pedal edema. NEUROLOGICAL: Gross neurological examination did not reveal any focal deficits. - Labs CBC & Chem 7: 08/14/18 06:41 08/14/18 06:41 Labs: Abnormal Lab Results - Last 24 Hours (Table) 08/12/18 08/14/18 08/14/18 Range/Units 08:55 06:41 06:41 WBC 0.2 L* (3.8-10.6) k/uL RBC 2.55 L (4.30-5.90) m/uL Hgb 7.1 L (13.0-17.5) gm/dL Hct 20.8 L (39.0-53.0) % RDW 16.4 H (11.5-15.5) % Plt Count 18 L* D (150-450) k/uL Sodium 135 L (137-145) mmol/L Chloride 108 H (98-107) mmol/L Uric Acid 1.5 L (3.5-8.5) mg/dL Calcium 7.9 L (8.4-10.2) mg/dL Phosphorus 1.3 L (2.5-4.5) mg/dL Total Bilirubin 1.4 H (0.2-1.3) mg/dL ALT 120 H (21-72) U/L Alkaline Phosphatase 320 H (38-126) U/L Total Protein 5.3 L (6.3-8.2) g/dL Albumin 2.6 L (3.5-5.0) g/dL Crossmatch See Detail Assessment and Plan Assessment: Acute myelogenous leukemia, on oral chemotherapy Pancytopenia, secondary to above Fever, with neutropenia, on broad spectum antibiotic. Elevated liver function tests, improving gradually Generalized weakness. Improving history of Congestive heart failure - chronic systolic with ejection fraction of 35%-not in exacerbation recent Sustained V. tach - possibily due to hypomagnesemia, Heart rate is stable currently Plan: Patient has been started on chemotherapy by oncology - day 7/out of 7, today. Patient still has pancytopenia and fever. continue with broad spectrum antibiotic. And patient reports that he feels better overall. Continue with fluconazole, vancomycin and meropenem. Blood cultures and urine cultures no growth so far. But overall prognosis is still poor. several consultants are following the pt including oncology and GI angelo and ID team as well . Further recommendations to follow depending on the progress of the patient. DVT px: no heparin in view of his severe thrombocytopenia GI px: protonix
[2018-08-14] MEDS: VENETOCLAX 100 MG PO SCH (14:25)
[2018-08-15] MEDS: MAG HYDROX/AL HYDROX/SIMETH 30 ML, LIDOCAINE VISCOUS 30 ML, diphenhydrAMINE ELIXIR 75 M... PO SCH ×24 (03:48→23:40)
[2018-08-15] MEDS: SALT AND SODA MOUTHWASH 1,000 ML PO SCH ×5 (05:05→23:40)
[2018-08-15] MEDS ORDERED: VANCOMYCIN TROUGH DUE 1 EACH MISC MISCELLANE ONE (09:00)
[2018-08-15 09:05] LABS: HGB 7.3 gm/dL (13.0-17.5); MCH 28.3 pg (25.0-35.0); MCHC 34.8 g/dL (31.0-37.0); MCV 81.4 fL (80.0-100.0); Mean Platelet Volume 8.5; Poikilocytosis Slight; RBC 2.58 m/uL (4.30-5.90); RDW 15.9 % (11.5-15.5)
[2018-08-15 09:12] LABS: Platelet Count 12 k/uL (150-450); WBC 0.2 k/uL (3.8-10.6)
[2018-08-15 09:16] LABS: ALT 84 U/L (21-72); AST 37 U/L (17-59); Albumin 2.7 g/dL (3.5-5.0); Alkaline Phosphatase 295 U/L (38-126); Anion Gap 5 mmol/L; Blood Urea Nitrogen 14 mg/dL (9-20); Calcium 8.2 mg/dL (8.4-10.2); Carbon Dioxide 23 mmol/L (22-30); Chloride 107 mmol/L (98-107); Glucose 96 mg/dL (74-99); Potassium 4.6 mmol/L (3.5-5.1); Sodium 135 mmol/L (137-145); Total Bilirubin 1.3 mg/dL (0.2-1.3); Total Protein 5.4 g/dL (6.3-8.2)
[2018-08-15] MEDS: MEROPENEM 1 GM in SODIUM CHLORIDE 0.9% 100 ML IVPB SCH ×3 (09:26→23:34)
[2018-08-15] MEDS: ALLOPURINOL 300 MG TAB PO SCH (09:26)
[2018-08-15] MEDS: FERROUS SULFATE 325 MG TAB PO SCH (09:27)
[2018-08-15] MEDS: ACYCLOVIR 200 MG CAP PO SCH ×2 (09:27→20:07)
[2018-08-15] MEDS: FLUCONAZOLE 100 MG TAB PO SCH (09:27)
[2018-08-15] MEDS: METOPROLOL SUCCINATE (ER) 50 MG TAB.ER.24H PO SCH ×2 (09:27→20:07)
[2018-08-15] MEDS: PANTOPRAZOLE 40 MG TABLET PO SCH (09:27)
[2018-08-15] MEDS: ASCORBIC ACID 500 MG TAB PO SCH (09:27)
[2018-08-15] MEDS: FOLIC ACID 1 MG TAB PO SCH (09:27)
[2018-08-15] MEDS: POTASSIUM CHLORIDE ER 20 MEQ TAB.ER PO SCH ×2 (09:27→20:07)
[2018-08-15 09:31] LABS: Rouleaux Present
--- NOTE | 2018-08-15 10:43 | P.PN ---
Subjective Mr. Nevarez is a 62-year-old gentleman admitted with severe symptomatic anemia. Patient has acute myelogenous leukemia with fevers. He is currently being followed by multiple consultants. He is on broad-spectrum antibiotics including meropenem and fluconazole. Patient had sustained V. tach which was believed to be secondary to hypomagnesemia. Patient has congestive heart failure with ejection fraction around 35%. He has severe leukocytosis. On 08/07/18 -Today patient is lying in the bed. He is cachectic and chronically ill appearing. He has been transferred to the oncology floor yesterday and started on chemotherapy. Patient states that he still weak but feeling a little better today. He reports that his leukocytosis is improved and he is able to tolerate a small amount of his diet. He continues to have fevers, highest recorded over the past 24 hours is 100.9. Patient denies having any chest pain or difficulty in breathing. He denies having any abdominal pain nausea vomiting or diarrhea. No dysuria or hematuria. Denies having any headaches or blurring of his vision or focal weakness. On 08/08/18 - patient is lying in bed. He states overall he is improving. He is cachectic. Appears to be no acute distress. Chemotherapy has been initiated by oncology team, Dr. Raymond villafana. His been tolerating okay. Patient states his appetite is still bad and he is not able to eat much. On 08/09/18 - patient is lying in bed. Appears to be no acute distress. As per the nursing staff report, patient's appetite is much better. Patient also reports that his oral mucosa is less painful and that he is able to eat more. Overall patient reports feeling much better. Patient is getting his chemotherapy-day 4 today. On review of systems - constitutional- history unless weakness and fatigue. No chest pain or palpitations. No cough or difficulty in breathing. No abdominal pain nausea vomiting or diarrhea. No dysuria or hematuria. 08/10/2018 Patient today with fully awake and oriented. He is generally weak. His appetite is nondisplaced and he is eating a little bit however he has no nausea vomiting or abdominal pain. She still fatigue with no respiratory signs and symptoms. No chest pain and or dyspnea. He is hemodynamically stable. However he still have fever of 100.1 today. And labs show still severe pancytopenia with WBC of 0.3, hemoglobin of 7.8 and platelets 6. His BMP was unremarkable. Liver enzymes are trending down slowly. He remains on chemotherapy orally and oncology team are following the patient closely. He still on antibiotic as meropenem and vancomycin and acyclovir. An infectious disease are evaluated the patient. 08/11/2018 Patient feels a little bit better today, he feels stronger area that her eating compared to yesterday. No overt respiratory symptoms or chest pain. He is hemodynamically stable. His WBC 0.2, platelets 10, hemoglobin 7.1, creatinine is 0.7. Liver enzymes are slightly trending down. Patient seemed remains on chemotherapy and oncology team R following closely 08/12/2018 Patient continued to improve regarding his strength and appetite. He has occasional cough with no phlegm or chest pain. No dyspnea. He denies abdominal pain or change in urine or bowel habits. He has no blood in his stool and no dark-colored stool. Vitals looks stable. Labs from today are pending. Today is getting the last dose of his oral chemotherapy. We are going to repeat his CT of the thorax for follow-up of his pulmonary nodules 08/13/2018 Patient continued to improve gradually. No specific symptoms today. He has better appetite and strength although he feels generally weak. Patient is afebrile and hemodynamically stable. WBC 0.2. Hemoglobin 7.4 after went of blood transfusion. Platelets 6. BMP was unremarkable. Liver enzymes improving gradually. Patient remains on broad-spectrum antibiotics. 08/14/2018 No change in the clinical condition of the patient with no new symptoms. No chest pain or dyspnea. His platelets slightly improving from 6 up to 18. Hemoglobin 7.1 and WBC 0.2. Creatinine 0.6. Distal flaps looks stable. Karime ent is hemodynamically stable. Oncology team are following 08/15/2018 Patient is fully awake and oriented. Today he has some coughing with little phlegm. No chest pain no dyspnea while he was lying in bed. He had fever 2 days ago at 100.1. Patient remains on the same broad-spectrum antibiotics. We'll do a chest x-ray for follow-up. Send sputum culture. Labs looking same with WBC 0.2, hemoglobin 7.3, platelet 12. The MP is unremarkable. Liver enzymes are trending down. DC telemetry Objective - Vital Signs Vital signs: Vital Signs Temp 98.4 F 08/15/18 05:10 Pulse 104 H 08/15/18 05:10 Resp 16 08/15/18 05:10 BP 108/56 08/15/18 05:10 Pulse Ox 97 08/15/18 05:10 Intake & Output 08/14/18 08/15/18 08/15/18 18:59 06:59 18:59 Output Total 300 Balance -300 Weight 63 kg Output: Urine 300 Other: Voiding Method Urinal Urinal Urinal # Voids 3 2 - Exam GENERAL: Cachectic and chronically ill appearing. Temporal wasting HEENT: Pallor positive. Oral mucosa looks much better compared to couple of days back. CARDIOVASCULAR: S1 and S2 present. No murmurs, rubs, or gallops. tachycardic PULMONARY: Bilateral expiratory wheezes. Diminished breath sounds at the lower lung tristan. ABDOMEN: Soft, nontender, nondistended, normoactive bowel sounds. No palpable organomegaly. MUSCULOSKELETAL: No joint swelling or deformity. EXTREMITIES: No cyanosis, clubbing, or pedal edema. NEUROLOGICAL: Gross neurological examination did not reveal any focal deficits. - Labs CBC & Chem 7: 08/15/18 08:50 08/15/18 08:50 Labs: Abnormal Lab Results - Last 24 Hours (Table) 08/15/18 08/15/18 Range/Units 08:50 08:50 WBC 0.2 L* (3.8-10.6) k/uL RBC 2.58 L (4.30-5.90) m/uL Hgb 7.3 L (13.0-17.5) gm/dL Hct 21.0 L (39.0-53.0) % RDW 15.9 H (11.5-15.5) % Plt Count 12 L* (150-450) k/uL Sodium 135 L (137-145) mmol/L Calcium 8.2 L (8.4-10.2) mg/dL ALT 84 H (21-72) U/L Alkaline Phosphatase 295 H (38-126) U/L Total Protein 5.4 L (6.3-8.2) g/dL Albumin 2.7 L (3.5-5.0) g/dL Assessment and Plan Assessment: Acute myelogenous leukemia, on oral chemotherapy Pancytopenia, secondary to above Fever, with neutropenia, on broad spectum antibiotic. Possible pneumonia, hospital-acquired. Related to his compromised community Elevated liver function tests, improving gradually Generalized weakness. Improving history of Congestive heart failure - chronic systolic with ejection fraction of 35%-not in exacerbation recent Sustained V. tach - possibily due to hypomagnesemia, Heart rate is stable currently Plan: Patient has been started on chemotherapy by oncology - day 7/out of 7, today. Patient still has pancytopenia and fever. continue with broad spectrum antibiotic. And patient reports that he feels better overall. Continue with fluconazole, vancomycin and meropenem. Blood cultures and urine cultures no growth so far. But overall prognosis is still poor. several consultants are following the pt including oncology and GI angelo and ID team as well . Further recommendations to follow depending on the progress of the patient. DVT px: no heparin in view of his severe thrombocytopenia GI px: protonix
--- NOTE | 2018-08-15 11:19 | XR ---
EXAMINATION TYPE: XR chest 2V DATE OF EXAM: 08/15/2018 COMPARISON: Prior chest x-ray 08/02/2018, chest CT 08/12/2018 HISTORY: Shortness of breath TECHNIQUE: Frontal and lateral views of the chest are obtained. FINDINGS: There is right lower lobe lung mass, additional nodularity is present bilaterally. No pleu ral or pericardial effusion. The cardiac silhouette size is within normal limits. Port-A-Cath is p resent with the distal tip in the superior vena cava. The osseous structures are intact. IMPRESSION: Findings may be due to metastatic disease. There is underlying emphysema.
[2018-08-15] MEDS: VANCOMYCIN 1,000 MG in SODIUM CHLORIDE 0.9% 250 ML IVPB SCH ×2 (11:27→21:38)
[2018-08-15] MEDS: VENETOCLAX 100 MG PO SCH (14:47)
[2018-08-15] MEDS: traMADol 50 MG TAB PO PRN (20:07)
[2018-08-15] MEDS: ACETAMINOPHEN TAB 500 MG TAB PO PRN (20:50)
[2018-08-16] MEDS: MAG HYDROX/AL HYDROX/SIMETH 30 ML, LIDOCAINE VISCOUS 30 ML, diphenhydrAMINE ELIXIR 75 M... PO SCH ×24 (03:54→23:48)
[2018-08-16] MEDS: traMADol 50 MG TAB PO PRN (05:00)
[2018-08-16] MEDS: SALT AND SODA MOUTHWASH 1,000 ML PO SCH ×5 (05:01→23:48)
[2018-08-16 06:53] LABS: Anisocytosis Slight; MCH 28.2 pg (25.0-35.0); MCHC 34.5 g/dL (31.0-37.0); MCV 81.8 fL (80.0-100.0); Mean Platelet Volume 7.9; Poikilocytosis Slight; RBC 2.43 m/uL (4.30-5.90); RDW 16.4 % (11.5-15.5); WBC 0.2 k/uL (3.8-10.6)
[2018-08-16 06:54] LABS: Platelet Count 11 k/uL (150-450)
[2018-08-16 06:56] LABS: HCT 19.9 % (39.0-53.0); HGB 6.9 gm/dL (13.0-17.5)
[2018-08-16 07:01] LABS: ALT 74 U/L (21-72); AST 34 U/L (17-59); Albumin 2.6 g/dL (3.5-5.0); Alkaline Phosphatase 257 U/L (38-126); Anion Gap 6 mmol/L; Blood Urea Nitrogen 14 mg/dL (9-20); Carbon Dioxide 22 mmol/L (22-30); Chloride 107 mmol/L (98-107); Glucose 93 mg/dL (74-99); Sodium 135 mmol/L (137-145); Total Bilirubin 1.3 mg/dL (0.2-1.3); Total Protein 5.3 g/dL (6.3-8.2)
[2018-08-16] MEDS: FERROUS SULFATE 325 MG TAB PO SCH (08:45)
[2018-08-16] MEDS: FOLIC ACID 1 MG TAB PO SCH (08:45)
[2018-08-16] MEDS: POTASSIUM CHLORIDE ER 20 MEQ TAB.ER PO SCH ×2 (08:45→19:49)
[2018-08-16] MEDS: FLUCONAZOLE 100 MG TAB PO SCH (08:45)
[2018-08-16] MEDS: METOPROLOL SUCCINATE (ER) 50 MG TAB.ER.24H PO SCH ×2 (08:45→19:46)
[2018-08-16] MEDS: ACYCLOVIR 200 MG CAP PO SCH ×2 (08:45→19:49)
[2018-08-16] MEDS: PANTOPRAZOLE 40 MG TABLET PO SCH (08:46)
[2018-08-16] MEDS: ASCORBIC ACID 500 MG TAB PO SCH (08:46)
[2018-08-16] MEDS: ALLOPURINOL 300 MG TAB PO SCH (08:46)
[2018-08-16] MEDS: MEROPENEM 1 GM in SODIUM CHLORIDE 0.9% 100 ML IVPB SCH ×3 (09:38→23:08)
[2018-08-16] MEDS: VANCOMYCIN 1,000 MG in SODIUM CHLORIDE 0.9% 250 ML IVPB SCH ×2 (11:01→20:47)
--- NOTE | 2018-08-16 11:07 | XR ---
EXAMINATION TYPE: XR chest 2V DATE OF EXAM: 08/16/2018 COMPARISON: 08/15/2018 INDICATION: Fever TECHNIQUE: Frontal and lateral views of the chest are obtained. FINDINGS: The heart size is normal. The pulmonary vasculature is normal. The lungs are clear. Port is present on the right with the tip in the superior vena cava region. IMPRESSION: 1. No acute pulmonary process.
[2018-08-16 11:46] LABS: Appearance,Urine Clear (Clear); Bilirubin,Urine Negative (Negative); Blood,Urine Small (Negative); Color,Urine Yellow; Glucose,Urine (UA) Negative (Negative); Ketones,Urine Negative (Negative); Leukocyte Esterase,Urine Negative (Negative); Mucus,Urine Rare /hpf; Nitrite,Urine Negative (Negative); Protein,Urine 1+ (Negative); RBC,Urine <1 /hpf (0-5); Specific Gravity,Urine 1.016 (1.001-1.035); WBC,Urine 1 /hpf (0-5)
[2018-08-16] MEDS: VENETOCLAX 100 MG PO SCH (13:18)
--- NOTE | 2018-08-16 14:15 | P.PN ---
Subjective Mr. Nevarez is a 62-year-old gentleman admitted with severe symptomatic anemia. Patient has acute myelogenous leukemia with fevers. He is currently being followed by multiple consultants. He is on broad-spectrum antibiotics including meropenem and fluconazole. Patient had sustained V. tach which was believed to be secondary to hypomagnesemia. Patient has congestive heart failure with ejection fraction around 35%. He has severe leukocytosis. On 08/07/18 -Today patient is lying in the bed. He is cachectic and chronically ill appearing. He has been transferred to the oncology floor yesterday and started on chemotherapy. Patient states that he still weak but feeling a little better today. He reports that his leukocytosis is improved and he is able to tolerate a small amount of his diet. He continues to have fevers, highest recorded over the past 24 hours is 100.9. Patient denies having any chest pain or difficulty in breathing. He denies having any abdominal pain nausea vomiting or diarrhea. No dysuria or hematuria. Denies having any headaches or blurring of his vision or focal weakness. On 08/08/18 - patient is lying in bed. He states overall he is improving. He is cachectic. Appears to be no acute distress. Chemotherapy has been initiated by oncology team, Dr. Raymond villafana. His been tolerating okay. Patient states his appetite is still bad and he is not able to eat much. On 08/09/18 - patient is lying in bed. Appears to be no acute distress. As per the nursing staff report, patient's appetite is much better. Patient also reports that his oral mucosa is less painful and that he is able to eat more. Overall patient reports feeling much better. Patient is getting his chemotherapy-day 4 today. On review of systems - constitutional- history unless weakness and fatigue. No chest pain or palpitations. No cough or difficulty in breathing. No abdominal pain nausea vomiting or diarrhea. No dysuria or hematuria. 08/10/2018 Patient today with fully awake and oriented. He is generally weak. His appetite is nondisplaced and he is eating a little bit however he has no nausea vomiting or abdominal pain. She still fatigue with no respiratory signs and symptoms. No chest pain and or dyspnea. He is hemodynamically stable. However he still have fever of 100.1 today. And labs show still severe pancytopenia with WBC of 0.3, hemoglobin of 7.8 and platelets 6. His BMP was unremarkable. Liver enzymes are trending down slowly. He remains on chemotherapy orally and oncology team are following the patient closely. He still on antibiotic as meropenem and vancomycin and acyclovir. An infectious disease are evaluated the patient. 08/11/2018 Patient feels a little bit better today, he feels stronger area that her eating compared to yesterday. No overt respiratory symptoms or chest pain. He is hemodynamically stable. His WBC 0.2, platelets 10, hemoglobin 7.1, creatinine is 0.7. Liver enzymes are slightly trending down. Patient seemed remains on chemotherapy and oncology team R following closely 08/12/2018 Patient continued to improve regarding his strength and appetite. He has occasional cough with no phlegm or chest pain. No dyspnea. He denies abdominal pain or change in urine or bowel habits. He has no blood in his stool and no dark-colored stool. Vitals looks stable. Labs from today are pending. Today is getting the last dose of his oral chemotherapy. We are going to repeat his CT of the thorax for follow-up of his pulmonary nodules 08/13/2018 Patient continued to improve gradually. No specific symptoms today. He has better appetite and strength although he feels generally weak. Patient is afebrile and hemodynamically stable. WBC 0.2. Hemoglobin 7.4 after went of blood transfusion. Platelets 6. BMP was unremarkable. Liver enzymes improving gradually. Patient remains on broad-spectrum antibiotics. 08/14/2018 No change in the clinical condition of the patient with no new symptoms. No chest pain or dyspnea. His platelets slightly improving from 6 up to 18. Hemoglobin 7.1 and WBC 0.2. Creatinine 0.6. Distal flaps looks stable. Karime ent is hemodynamically stable. Oncology team are following 08/15/2018 Patient is fully awake and oriented. Today he has some coughing with little phlegm. No chest pain no dyspnea while he was lying in bed. He had fever 2 days ago at 100.1. Patient remains on the same broad-spectrum antibiotics. We'll do a chest x-ray for follow-up. Send sputum culture. Labs looking same with WBC 0.2, hemoglobin 7.3, platelet 12. The MP is unremarkable. Liver enzymes are trending down. DC telemetry 08/16/2018 Patient is lying in bed comfortable, he walks to the bathroom and comes back with no exertional dyspnea. He still have some coughing with phlegm but no chest pain or dyspnea. Patient is still have temperature of 100.0 today. No abdominal pain or diarrhea. No urinary symptoms. Patient remains on broad- spectrum antibiotics. Repeat urine analysis is negative for infections. Patient still have pancytopenia and his hemoglobin 6.9, patient is given 1 units of blood transfusion today. BMP is unremarkable. Oncology team input is appreciated. Sputum culture is ordered for possible respiratory infection: Pending Objective - Vital Signs Vital signs: Vital Signs Temp 98.5 F 08/16/18 05:00 Pulse 104 H 08/16/18 08:00 Resp 16 08/16/18 08:00 BP 113/64 08/16/18 05:00 Pulse Ox 97 08/16/18 05:00 Intake & Output 08/15/18 08/16/18 08/16/18 18:59 06:59 18:59 Intake Total 560 120 Output Total 461 503 Balance 99 -383 Weight 62.5 kg Intake: Intake, IV Titration 350 Amount Meropenem 1 gm In Sodium 100 Chloride 0.9% 100 ml @ 200 mls/hr IVPB Q8HR [facility] Rx#:[id number] Vancomycin 1,000 mg In 250 Sodium Chloride 0.9% 250 ml @ 125 mls/hr IVPB Q12H [facility] Rx#:[id number] Oral 210 120 Output: Urine 460 500 Stool 1 3 Other: Voiding Method Urinal Urinal Urinal # Voids 2 1 - Exam GENERAL: Cachectic and chronically ill appearing. Temporal wasting HEENT: Pallor positive. Oral mucosa looks much better compared to couple of days back. CARDIOVASCULAR: S1 and S2 present. No murmurs, rubs, or gallops. tachycardic PULMONARY: Bilateral expiratory wheezes. Diminished breath sounds at the lower lung tristan. ABDOMEN: Soft, nontender, nondistended, normoactive bowel sounds. No palpable organomegaly. MUSCULOSKELETAL: No joint swelling or deformity. EXTREMITIES: No cyanosis, clubbing, or pedal edema. NEUROLOGICAL: Gross neurological examination did not reveal any focal deficits. - Labs CBC & Chem 7: 08/16/18 06:31 08/16/18 06:31 Labs: Abnormal Lab Results - Last 24 Hours (Table) 05/27/19 05/27/19 05/27/19 Range/Units 06:31 06:31 09:42 WBC 0.2 L* (3.8-10.6) k/uL RBC 2.43 L (4.30-5.90) m/uL Hgb 6.9 L* (13.0-17.5) gm/dL Hct 19.9 L* (39.0-53.0) % RDW 16.4 H (11.5-15.5) % Plt Count 11 L* (150-450) k/uL Sodium 135 L (137-145) mmol/L Creatinine 0.64 L (0.66-1.25) mg/dL Calcium 8.0 L (8.4-10.2) mg/dL ALT 74 H (21-72) U/L Alkaline Phosphatase 257 H (38-126) U/L Total Protein 5.3 L (6.3-8.2) g/dL Albumin 2.6 L (3.5-5.0) g/dL Urine Protein (Negative) Urine Blood (Negative) Urine Mucus (None) /hpf Crossmatch See Detail 08/16/18 Range/Units 11:00 WBC (3.8-10.6) k/uL RBC (4.30-5.90) m/uL Hgb (13.0-17.5) gm/dL Hct (39.0-53.0) % RDW (11.5-15.5) % Plt Count (150-450) k/uL Sodium (137-145) mmol/L Creatinine (0.66-1.25) mg/dL Calcium (8.4-10.2) mg/dL ALT (21-72) U/L Alkaline Phosphatase (38-126) U/L Total Protein (6.3-8.2) g/dL Albumin (3.5-5.0) g/dL Urine Protein 1+ H (Negative) Urine Blood Small H (Negative) Urine Mucus Rare H (None) /hpf Crossmatch Assessment and Plan Assessment: Acute myelogenous leukemia, on oral chemotherapy Pancytopenia, secondary to above Fever, with neutropenia, on broad spectum antibiotic. Possible pneumonia, hospital-acquired. Related to his compromised community Elevated liver function tests, improving gradually Generalized weakness. Improving history of Congestive heart failure - chronic systolic with ejection fraction of 35%-not in exacerbation recent Sustained V. tach - possibily due to hypomagnesemia, Heart rate is stable currently Plan: Patient has been started on chemotherapy by oncology - day 7/out of 7, today. Patient still has pancytopenia and fever. continue with broad spectrum antibiotic. And patient reports that he feels better overall. Continue with fluconazole, vancomycin and meropenem. Blood cultures and urine cultures no growth so far. But overall prognosis is still poor. several consultants are following the pt including oncology and GI angelo and ID team as well . Further recommendations to follow depending on the progress of the patient. DVT px: no heparin in view of his severe thrombocytopenia GI px: protonix
[2018-08-17] MEDS: ACETAMINOPHEN TAB 500 MG TAB PO PRN (04:05)
[2018-08-17] MEDS: MAG HYDROX/AL HYDROX/SIMETH 30 ML, LIDOCAINE VISCOUS 30 ML, diphenhydrAMINE ELIXIR 75 M... PO SCH ×20 (04:44→20:36)
[2018-08-17] MEDS: SALT AND SODA MOUTHWASH 1,000 ML PO SCH ×4 (05:17→20:36)
[2018-08-17 07:28] LABS: HGB 7.5 gm/dL (13.0-17.5); MCH 28.2 pg (25.0-35.0); MCHC 34.1 g/dL (31.0-37.0); MCV 82.9 fL (80.0-100.0); Mean Platelet Volume 7.4; Poikilocytosis Slight; RBC 2.65 m/uL (4.30-5.90); RDW 15.7 % (11.5-15.5)
[2018-08-17 07:59] LABS: Platelet Count 6 k/uL (150-450); WBC 0.3 k/uL (3.8-10.6)
[2018-08-17 08:29] LABS: ALT 67 U/L (21-72); AST 36 U/L (17-59); Albumin 2.6 g/dL (3.5-5.0); Alkaline Phosphatase 244 U/L (38-126); Anion Gap 6 mmol/L; Blood Urea Nitrogen 15 mg/dL (9-20); Carbon Dioxide 22 mmol/L (22-30); Chloride 106 mmol/L (98-107); Glucose 100 mg/dL (74-99); Potassium 3.9 mmol/L (3.5-5.1); Sodium 134 mmol/L (137-145); Total Bilirubin 1.6 mg/dL (0.2-1.3); Total Protein 5.3 g/dL (6.3-8.2)
[2018-08-17] MEDS: ALLOPURINOL 300 MG TAB PO SCH (08:34)
[2018-08-17] MEDS: FERROUS SULFATE 325 MG TAB PO SCH (08:34)
[2018-08-17] MEDS: ACYCLOVIR 200 MG CAP PO SCH ×2 (08:34→20:36)
[2018-08-17] MEDS: POTASSIUM CHLORIDE ER 20 MEQ TAB.ER PO SCH ×2 (08:34→20:36)
[2018-08-17] MEDS: ASCORBIC ACID 500 MG TAB PO SCH (08:35)
[2018-08-17] MEDS: FLUCONAZOLE 100 MG TAB PO SCH (08:35)
[2018-08-17] MEDS: FOLIC ACID 1 MG TAB PO SCH (08:35)
[2018-08-17] MEDS: METOPROLOL SUCCINATE (ER) 50 MG TAB.ER.24H PO SCH ×2 (08:35→20:36)
[2018-08-17] MEDS: PANTOPRAZOLE 40 MG TABLET PO SCH (08:35)
[2018-08-17] MEDS: MEROPENEM 1 GM in SODIUM CHLORIDE 0.9% 100 ML IVPB SCH (08:47)
[2018-08-17] MEDS: traMADol 50 MG TAB PO PRN ×2 (09:27→20:36)
[2018-08-17 10:06] VITALS: BMI 18.5
[2018-08-17 10:32] LABS: Rouleaux Present
[2018-08-17] MEDS: VANCOMYCIN 1,000 MG in SODIUM CHLORIDE 0.9% 250 ML IVPB SCH ×2 (11:03→21:22)
--- NOTE | 2018-08-17 14:15 | CDI ---
Documentation Clarification Form Date: 08/17/2018 1:54:31 PM From: Merary John RN CCDS Admit Date: 08/01/2018 12:40:00 AM Patient Name: Viraj Nevarez Visit Number: [id number] Discharge Date: ATTENTION: The Clinical Documentation Specialists (CDI) and [facility] Coding Staff appreciate your assistance in clarifying documentation. Please respond to the clarification below the line at the bottom and electronically sign. The CDI & [facility] Coding staff will review the response and follow-up if needed. Please note: Queries are made part of the Legal Health Record. If you have any questions, please contact the author of this message via ITS. Dr. Conklin E Sheet The Patient is described as cachectic and chronically ill appearing History/Risk Factors: 62 year old male presents to the ED with severe symptomatic anemia with acute myelogenous leukemia with fevers. Medical hx Myloid leukemia, B cell lymphoma; CAD/ Clinical Indicators: Labs: Albumin 2.7/ Total Protein 5.5 Current BMI: 18.5 Insufficient energy intake: 20 -50% Treatment: Dietary Consult: nutrition intake poor; percent consumed 25-50% ; Appetite failure; Supplements: Ensure Enlive TID and Magic Cups Lab monitoring: albumin, and total protein In your professional opinion, can you please clarify if these findings signify one of the following conditions? * Mild Protein-Calorie Malnutrition * Moderate Protein-Calorie Malnutrition * Severe Protein-Calorie Malnutrition * Malnutrition, unspecified * Malnutrition following GI surgery * Other condition, please specify * Unable to determine (Last Revision: June 2017) _ __ Moderate Protein-Calorie Malnutrition MTDD
--- NOTE | 2018-08-17 14:21 | P.PN ---
Subjective Progress Note Date: 08/17/18 Principal diagnosis: Acute myeloid leukemia, treatment In follow-up today patient is doing better. He is tolerating more oral intake, denies oral irritation, nausea, vomiting, difficulty in breathing, palpitations, abdominal pain, dysuria, hematuria, diarrhea or constipation, no bleeding to report. Objective - Vital Signs Vital signs: Vital Signs Temp 98.3 F 08/17/18 12:28 Pulse 94 08/17/18 12:28 Resp 16 08/17/18 12:28 BP 122/54 08/17/18 12:28 Pulse Ox 100 08/17/18 12:28 Intake & Output 08/16/18 08/17/18 08/17/18 18:59 06:59 18:59 Intake Total 430 547 Output Total 1105 2 Balance -675 -2 547 Weight 62 kg 62 kg Intake: Oral 120 240 Blood Product 310 307 Platelet Irr Pheresis 2 307 Acda Unit [id number] Rc Irr As1 Unit 310 [id number] Output: Urine 1100 Stool 5 2 Other: Voiding Method Urinal Urinal Urinal # Voids 1 3 - Constitutional General appearance: Present: cooperative, no acute distress, thin - EENT Eyes: Present: anicteric sclerae, EOMI, poor dentition ENT: Present: hearing grossly normal, normal oropharynx - Neck Neck: Present: normal ROM. Absent: lymphadenopathy - Respiratory Respiratory: bilateral: CTA - Cardiovascular Rhythm: regular Heart sounds: normal: S1, S2 Abnormal Heart Sounds: Absent: systolic murmur, diastolic murmur, rub, S3 Gallop, S4 Gallop, click, other - Peripheral edema leg Peripheral Edema: bilateral: None - Gastrointestinal General gastrointestinal: Present: normal bowel sounds, scaphoid, soft - Neurologic Neurologic: Present: CNII-XII intact - Musculoskeletal Musculoskeletal: Present: generalized weakness, strength equal bilaterally - Psychiatric Psychiatric: Present: A&O x's 3, appropriate affect, intact judgment & insight - Labs CBC & Chem 7: 08/17/18 06:33 08/17/18 06:33 Labs: Abnormal Lab Results - Last 24 Hours (Table) 08/16/18 08/17/18 08/17/18 Range/Units 09:42 06:33 06:33 WBC 0.3 L* (3.8-10.6) k/uL RBC 2.65 L (4.30-5.90) m/uL Hgb 7.5 L (13.0-17.5) gm/dL Hct 22.0 L (39.0-53.0) % RDW 15.7 H (11.5-15.5) % Plt Count 6 L* (150-450) k/uL Sodium 134 L (137-145) mmol/L Creatinine 0.65 L (0.66-1.25) mg/dL Glucose 100 H (74-99) mg/dL Calcium 8.0 L (8.4-10.2) mg/dL Total Bilirubin 1.6 H (0.2-1.3) mg/dL Alkaline Phosphatase 244 H (38-126) U/L Total Protein 5.3 L (6.3-8.2) g/dL Albumin 2.6 L (3.5-5.0) g/dL Crossmatch See Detail Microbiology - Last 24 Hours (Table) 08/16/18 09:42 Blood Culture - Preliminary Blood No Growth after 24 hours 08/16/18 09:51 Blood Culture - Preliminary Blood No Growth after 24 hours 08/16/18 11:00 Urine Culture - Final Urine,Voided Assessment and Plan (1) Acute myelogenous leukemia Narrative/Plan: Patient is admitted for treatment of the same. 7 days of vidaza completed, continue oral venetoclax at 400 mg daily. Bone marrow will be scheduled outpatient for 3 weeks post treatment. Once reported no blasts, patient will then be initiated on G-CSF. Current Visit: Yes Status: Acute Priority: High Code(s): C92.00 - ACUTE MYELOBLASTIC LEUKEMIA, NOT HAVING ACHIEVED REMISSION SNOMED Code(s): 12218289 (2) Pancytopenia Narrative/Plan: Secondary to disease as well as treatment of disease. No intervention for low white count. Transfuse platelets today for a platelet count of 6000 Transfuse for Hgb< 7, unless symptomatic, hemoglobin is stable today No GCSF at this time. Patient is on prophylactic antiviral, antifungal and an tibiotics, Infectious Disease is following. Current Visit: Yes Status: Acute Priority: High Code(s): D61.818 - OTHER PANCYTOPENIA SNOMED Code(s): 239901238 Plan: Labs daily while inpatient Daily follow-up. Cont supportive care Specialty bed. Close monitoring of the skin. High-protein diet recommendations, reinforced with patient and family Ambulatory requirements reviewed with patient and sister at bedside.
[2018-08-17] MEDS: VENETOCLAX 100 MG PO SCH (14:32)
--- NOTE | 2018-08-17 21:26 | P.PN ---
Subjective Mr. Nevarez is a 62-year-old gentleman admitted with severe symptomatic anemia. Patient has acute myelogenous leukemia with fevers. He is currently being followed by multiple consultants. He is on broad-spectrum antibiotics including meropenem and fluconazole. Patient had sustained V. tach which was believed to be secondary to hypomagnesemia. Patient has congestive heart failure with ejection fraction around 35%. He has severe leukocytosis. On 08/07/18 -Today patient is lying in the bed. He is cachectic and chronically ill appearing. He has been transferred to the oncology floor yesterday and started on chemotherapy. Patient states that he still weak but feeling a little better today. He reports that his leukocytosis is improved and he is able to tolerate a small amount of his diet. He continues to have fevers, highest recorded over the past 24 hours is 100.9. Patient denies having any chest pain or difficulty in breathing. He denies having any abdominal pain nausea vomiting or diarrhea. No dysuria or hematuria. Denies having any headaches or blurring of his vision or focal weakness. On 08/08/18 - patient is lying in bed. He states overall he is improving. He is cachectic. Appears to be no acute distress. Chemotherapy has been initiated by oncology team, Dr. Raymond villafana. His been tolerating okay. Patient states his appetite is still bad and he is not able to eat much. On 08/09/18 - patient is lying in bed. Appears to be no acute distress. As per the nursing staff report, patient's appetite is much better. Patient also reports that his oral mucosa is less painful and that he is able to eat more. Overall patient reports feeling much better. Patient is getting his chemotherapy-day 4 today. On review of systems - constitutional- history unless weakness and fatigue. No chest pain or palpitations. No cough or difficulty in breathing. No abdominal pain nausea vomiting or diarrhea. No dysuria or hematuria. 08/10/2018 Patient today with fully awake and oriented. He is generally weak. His appetite is nondisplaced and he is eating a little bit however he has no nausea vomiting or abdominal pain. She still fatigue with no respiratory signs and symptoms. No chest pain and or dyspnea. He is hemodynamically stable. However he still have fever of 100.1 today. And labs show still severe pancytopenia with WBC of 0.3, hemoglobin of 7.8 and platelets 6. His BMP was unremarkable. Liver enzymes are trending down slowly. He remains on chemotherapy orally and oncology team are following the patient closely. He still on antibiotic as meropenem and vancomycin and acyclovir. An infectious disease are evaluated the patient. 08/11/2018 Patient feels a little bit better today, he feels stronger area that her eating compared to yesterday. No overt respiratory symptoms or chest pain. He is hemodynamically stable. His WBC 0.2, platelets 10, hemoglobin 7.1, creatinine is 0.7. Liver enzymes are slightly trending down. Patient seemed remains on chemotherapy and oncology team R following closely 08/12/2018 Patient continued to improve regarding his strength and appetite. He has occasional cough with no phlegm or chest pain. No dyspnea. He denies abdominal pain or change in urine or bowel habits. He has no blood in his stool and no dark-colored stool. Vitals looks stable. Labs from today are pending. Today is getting the last dose of his oral chemotherapy. We are going to repeat his CT of the thorax for follow-up of his pulmonary nodules 08/13/2018 Patient continued to improve gradually. No specific symptoms today. He has better appetite and strength although he feels generally weak. Patient is afebrile and hemodynamically stable. WBC 0.2. Hemoglobin 7.4 after went of blood transfusion. Platelets 6. BMP was unremarkable. Liver enzymes improving gradually. Patient remains on broad-spectrum antibiotics. 08/14/2018 No change in the clinical condition of the patient with no new symptoms. No chest pain or dyspnea. His platelets slightly improving from 6 up to 18. Hemoglobin 7.1 and WBC 0.2. Creatinine 0.6. Distal flaps looks stable. Karime ent is hemodynamically stable. Oncology team are following 08/15/2018 Patient is fully awake and oriented. Today he has some coughing with little phlegm. No chest pain no dyspnea while he was lying in bed. He had fever 2 days ago at 100.1. Patient remains on the same broad-spectrum antibiotics. We'll do a chest x-ray for follow-up. Send sputum culture. Labs looking same with WBC 0.2, hemoglobin 7.3, platelet 12. The MP is unremarkable. Liver enzymes are trending down. DC telemetry 08/16/2018 Patient is lying in bed comfortable, he walks to the bathroom and comes back with no exertional dyspnea. He still have some coughing with phlegm but no chest pain or dyspnea. Patient is still have temperature of 100.0 today. No abdominal pain or diarrhea. No urinary symptoms. Patient remains on broad- spectrum antibiotics. Repeat urine analysis is negative for infections. Patient still have pancytopenia and his hemoglobin 6.9, patient is given 1 units of blood transfusion today. BMP is unremarkable. Oncology team input is appreciated. Sputum culture is ordered for possible respiratory infection: Pending 08/17/2017 Patient is lying in bed comfortable, his cough has improved since yesterday, no chest pain , no more fever . pt with pancytopenia , he is status blood trans fusion , oncology team are following . Objective - Vital Signs Vital signs: Vital Signs Temp 98.3 F 08/17/18 12:28 Pulse 94 08/17/18 12:28 Resp 16 08/17/18 12:28 BP 122/54 08/17/18 12:28 Pulse Ox 100 08/17/18 12:28 Intake & Output 08/17/18 08/17/18 08/18/18 06:59 18:59 06:59 Intake Total 1187 Output Total 2 Balance -2 1187 Weight 62 kg 62 kg Intake: Oral 880 Blood Product 307 Platelet Irr Pheresis 2 307 Acda Unit [id number] Output: Stool 2 Other: Voiding Method Urinal Urinal # Voids 3 3 - Exam GENERAL: Cachectic and chronically ill appearing. Temporal wasting HEENT: Pallor positive. Oral mucosa looks much better compared to couple of days back. CARDIOVASCULAR: S1 and S2 present. No murmurs, rubs, or gallops. tachycardic PULMONARY: Bilateral expiratory wheezes. Diminished breath sounds at the lower lung tristan. ABDOMEN: Soft, nontender, nondistended, normoactive bowel sounds. No palpable organomegaly. MUSCULOSKELETAL: No joint swelling or deformity. EXTREMITIES: No cyanosis, clubbing, or pedal edema. NEUROLOGICAL: Gross neurological examination did not reveal any focal deficits. - Labs CBC & Chem 7: 08/17/18 06:33 08/17/18 06:33 Labs: Abnormal Lab Results - Last 24 Hours (Table) 08/17/18 08/17/18 Range/Units 06:33 06:33 WBC 0.3 L* (3.8-10.6) k/uL RBC 2.65 L (4.30-5.90) m/uL Hgb 7.5 L (13.0-17.5) gm/dL Hct 22.0 L (39.0-53.0) % RDW 15.7 H (11.5-15.5) % Plt Count 6 L* (150-450) k/uL Sodium 134 L (137-145) mmol/L Creatinine 0.65 L (0.66-1.25) mg/dL Glucose 100 H (74-99) mg/dL Calcium 8.0 L (8.4-10.2) mg/dL Total Bilirubin 1.6 H (0.2-1.3) mg/dL Alkaline Phosphatase 244 H (38-126) U/L Total Protein 5.3 L (6.3-8.2) g/dL Albumin 2.6 L (3.5-5.0) g/dL Microbiology - Last 24 Hours (Table) 08/16/18 09:42 Blood Culture - Preliminary Blood No Growth after 24 hours 08/16/18 09:51 Blood Culture - Preliminary Blood No Growth after 24 hours 08/16/18 11:00 Urine Culture - Final Urine,Voided Assessment and Plan Assessment: Acute myelogenous leukemia, on oral chemotherapy Pancytopenia, secondary to above Fever, with neutropenia, on broad spectum antibiotic. Possible pneumonia, hospital-acquired. Related to his compromised community Elevated liver function tests, improving gradually Generalized weakness. Improving history of Congestive heart failure - chronic systolic with ejection fraction of 35%-not in exacerbation recent Sustained V. tach - possibily due to hypomagnesemia, Heart rate is stable currently Plan: Patient has been started on chemotherapy by oncology - day 7/out of 7, today. Patient still has pancytopenia and fever. continue with broad spectrum antibi otic. And patient reports that he feels better overall. Continue with fluconazole, vancomycin and meropenem. Blood cultures and urine cultures no growth so far. But overall prognosis is still poor. several consultants are following the pt including oncology and GI angelo and ID team as well . Further recommendations to follow depending on the progress of the patient. DVT px: no heparin in view of his severe thrombocytopenia GI px: protonix
--- NOTE | 2018-08-17 23:39 | P.PN ---
Subjective Progress Note Date: 08/17/18 This is a 62-year-old male with significant past history of CLL initially diagnosed in December 2000 followed by diagnosis of diffuse large B- cell lymphoma in 2014 and again in 2016. He suffered from myocardial infarction during course of chemotherapy was stopped. Heart catheterization found complete RCA occlusion with collaterals and tight stenosis in the circumflex that was difficult to stent and not considered a candidate for surgery and was placed on medical management but eventually had successful stenting of the LAD and left circumflex. It was decided in September 2017 not to proceed with chemotherapy. In May of this year, patient presented with shortness of breath and pancytopenia was found to be in acute myeloleukemia and started chemotherapy on June 12 with 7+3 regime, supportive transfusions and prophylactic antibiotics. The patient's course was complicated as he appeared does not have any drug coverage and application to the drug companies have been done by the oncologist office. 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 Patient presented to [facility] emergency center on August 02 with complaints of weakness and intermittent confusion. Patient also states he was running fevers at home. He denies having any shortness of breath or chest pain. He states he has had a cough with possibly some sputum production. Patient presented with fever of 103.3, tachycardia and hypotension. White cell count is at 19.9, hemoglobin 8.7 and platelet count 15 and last at 19.7. Patient has had transfusion of 3 units packed RBCs and 2 units of platelets. The patient's course has been complicated as he developed atrial fibrillation currently on Cardizem drip and followed by cardiology. Stool for occult blood is positive and liver function tests have been elevated. Gastroenterology is also following the patient. He underwent a liver ultrasound this morning and report is pending. A CAT scan of the abdomen pelvis also ordered. Patient has been on vancomycin and meropenem was added by ID. Urine culture has been finalized with no growth and blood culture showing no growth at 72 hours. 08/05/2018 patient is definitely feeling better today. His fever has resolved. Some difficulty with swallowing is uncomfortable. But otherwise has no other acute complaints. 08/06/2018 patient transferred to oncology unit to begin his next course of chemotherapy for persistent AML 08/07/2018 patient is feeling somewhat better today. Temperature maximum 100.9. His shortness of breath is improving. He is relating since initiating his chemotherapy yesterday he does seem to be feeling better 08/09/2018 patient continues to feel better. Is afebrile today. Tolerated his chemotherapy relatively well. Relates since starting chemotherapy he is actually feeling added and he has in quite some time. His appetite has increased his been able to eat part of his meals today. 08/09/2018 patient is doing modestly well with his chemotherapy. Now just on oral. Appetite is improved. No other new acute changes. Continues to have p ancytopenia. No fever in the last 24 hours. Objective - Vital Signs Vital signs: Vital Signs Temp 98.4 F 08/17/18 21:00 Pulse 126 H 08/17/18 21:00 Resp 16 08/17/18 21:00 BP 109/57 08/17/18 21:00 Pulse Ox 97 08/17/18 21:00 Intake & Output 08/17/18 08/17/18 08/18/18 06:59 18:59 06:59 Intake Total 1547 60 Output Total 2 Balance -2 1547 60 Weight 62 kg 62 kg Intake: Oral 1240 60 Blood Product 307 Platelet Irr Pheresis 2 307 Acda Unit [id number] Output: Stool 2 Other: Voiding Method Urinal Urinal # Voids 3 3 1 - Exam Gen: This is a thin 62-year-old male. He is resting in bed and sl eeping and awakens easily to verbal stimuli. HEENT: Head is atraumatic, normocephalic. Pupils equal, round. Sclerae is anicteric. Oral mucous membranes are dry but without thrush but oral cavity remains uncomfortable. Patient is essentially edentulous with 1 lone tooth on top mid front. NECK: Supple. No JVD. No thyromegaly. LUNGS: Scattered rhonchi and bibasilar rales. Congestive moist cough noted. No intercostal retractions. HEART: Regular rate and rhythm. No murmur. Tachycardic. ABDOMEN: Soft. Bowel sounds are present. No masses. No tenderness. No right upper quadrant tenderness. EXTREMITIES: No pedal edema. No calf tenderness. Dorsalis pedis are +1 bilaterally. NEUROLOGICAL: Patient is awake, alert and oriented x3 - Labs CBC & Chem 7: 08/17/18 06:33 08/17/18 06:33 Labs: Abnormal Lab Results - Last 24 Hours (Table) 08/17/18 08/17/18 Range/Units 06:33 06:33 WBC 0.3 L* (3.8-10.6) k/uL RBC 2.65 L (4.30-5.90) m/uL Hgb 7.5 L (13.0-17.5) gm/dL Hct 22.0 L (39.0-53.0) % RDW 15.7 H (11.5-15.5) % Plt Count 6 L* (150-450) k/uL Sodium 134 L (137-145) mmol/L Creatinine 0.65 L (0.66-1.25) mg/dL Glucose 100 H (74-99) mg/dL Calcium 8.0 L (8.4-10.2) mg/dL Total Bilirubin 1.6 H (0.2-1.3) mg/dL Alkaline Phosphatase 244 H (38-126) U/L Total Protein 5.3 L (6.3-8.2) g/dL Albumin 2.6 L (3.5-5.0) g/dL Microbiology - Last 24 Hours (Table) 08/16/18 09:42 Blood Culture - Preliminary Blood No Growth after 24 hours 08/16/18 09:51 Blood Culture - Preliminary Blood No Growth after 24 hours 08/16/18 11:00 Urine Culture - Final Urine,Voided Laboratory Results WBC 0.3 k/uL (3.8-10.6) L* 08/17/18 06:33 RBC 2.65 m/uL (4.30-5.90) L 08/17/18 06:33 Hgb 7.5 gm/dL (13.0-17.5) L 08/17/18 06:33 Hct 22.0 % (39.0-53.0) L 08/17/18 06:33 MCV 82.9 fL (80.0-100.0) 08/17/18 06:33 MCH 28.2 pg (25.0-35.0) 08/17/18 06:33 MCHC 34.1 g/dL (31.0-37.0) 08/17/18 06:33 RDW 15.7 % (11.5-15.5) H 08/17/18 06:33 Plt Count 6 k/uL (150-450) L* 08/17/18 06:33 Neutrophils % (Manual) 1 % 08/07/18 06:29 Lymphocytes % (Manual) 5 % 08/07/18 06:29 Monocytes % (Manual) 7 % 08/07/18 06:29 Blast Cells % 87 % H* 08/07/18 06:29 Neutrophils # IRONWORKER 08/16/18 06:31 Neutrophils # (Manual) 0.05 k/uL (1.3-7.7) L* 08/07/18 06:29 Lymphocytes # (Manual) 0.25 k/uL (1.0-4.8) L 08/07/18 06:29 Monocytes # (Manual) 0.34 k/uL (0-1.0) 08/07/18 06:29 Blast Cells # (Man) 4.26 k/uL (0) H 08/07/18 06:29 Nucleated RBCs 0 /100 WBC (0-0) 08/07/18 06:29 Differential Comment 08/16/18 06:31 Manual Slide Review Performed 08/17/18 06:33 Hypochromasia Moderate 08/01/18 10:42 Poikilocytosis Slight 08/17/18 06:33 Poikilocytosis (manual Present 08/11/18 06:24 Anisocytosis Slight 08/16/18 06:31 Microcytosis Slight 08/04/18 05:52 Rouleaux Present 08/17/18 06:33 Fragmented RBCs Present 08/04/18 05:52 PT 13.1 sec (9.0-12.0) H 08/03/18 21:40 INR 1.3 (<1.2) H 08/03/18 21:40 APTT 31.8 sec (22.0-30.0) H 08/03/18 21:40 Sodium 134 mmol/L (137-145) L 08/17/18 06:33 Potassium 3.9 mmol/L (3.5-5.1) 08/17/18 06:33 Chloride 106 mmol/L (98-107) 08/17/18 06:33 Carbon Dioxide 22 mmol/L (22-30) 08/17/18 06:33 Anion Gap 6 mmol/L 08/17/18 06:33 BUN 15 mg/dL (9-20) 08/17/18 06:33 Creatinine 0.65 mg/dL (0.66-1.25) L 08/17/18 06:33 Est GFR (CKD-EPI)AfAm >90 (>60 ml/min/1.73 sqM) 08/17/18 06:33 Est GFR (CKD-EPI)NonAf >90 (>60 ml/min/1.73 sqM) 08/17/18 06:33 Glucose 100 mg/dL (74-99) H 08/17/18 06:33 Lactic Ac Sepsis Rflx Y 07/31/18 21:43 Plasma Lactic Acid Jaylen 1.1 mmol/L (0.7-2.0) 08/03/18 09:35 Uric Acid 1.5 mg/dL (3.5-8.5) L 08/14/18 06:41 Calcium 8.0 mg/dL (8.4-10.2) L 08/17/18 06:33 Phosphorus 1.3 mg/dL (2.5-4.5) L 08/14/18 06:41 Magnesium 2.0 mg/dL (1.6-2.3) 08/14/18 06:41 Total Bilirubin 1.6 mg/dL (0.2-1.3) H 08/17/18 06:33 AST 36 U/L (17-59) 08/17/18 06:33 ALT 67 U/L (21-72) 08/17/18 06:33 Alkaline Phosphatase 244 U/L (38-126) H 08/17/18 06:33 Lactate Dehydrogenase 514 U/L (313-618) 08/14/18 06:41 Troponin I 0.124 ng/mL (0.000-0.034) H* 08/02/18 13:50 NT-Pro-B Natriuret Pep 25324 pg/mL 08/02/18 07:58 Total Protein 5.3 g/dL (6.3-8.2) L 08/17/18 06:33 Albumin 2.6 g/dL (3.5-5.0) L 08/17/18 06:33 Urine Color Yellow 08/16/18 11:00 Urine Appearance Clear (Clear) 08/16/18 11:00 Urine pH 6.0 (5.0-8.0) 08/16/18 11:00 Ur Specific [place] 1.016 (1.001-1.035) 08/16/18 11:00 Urine Protein 1+ (Negative) H 08/16/18 11:00 Urine Glucose (UA) Negative (Negative) 08/16/18 11:00 Urine Ketones Negative (Negative) 08/16/18 11:00 Urine Blood Small (Negative) H 08/16/18 11:00 Urine Nitrite Negative (Negative) 08/16/18 11:00 Urine Bilirubin Negative (Negative) 08/16/18 11:00 Urine Urobilinogen 2.0 mg/dL (<2.0) 08/16/18 11:00 Ur Leukocyte Esterase Negative (Negative) 08/16/18 11:00 Urine RBC <1 /hpf (0-5) 08/16/18 11:00 Urine WBC 1 /hpf (0-5) 08/16/18 11:00 Urine Mucus Rare /hpf (None) H 08/16/18 11:00 Stool Occult Blood Positive (Negative) 08/01/18 00:00 Vancomycin Trough 15.6 ug/mL 08/15/18 08:50 C. difficile (EIA) Intrp Negative (Negative) 08/13/18 00:30 Hepatitis A IgM Ab Non-Reactive (Non-Reactive) 08/04/18 05:52 Hep Bs Antigen Non-Reactive (Non-Reactive) 08/04/18 05:52 Hep B Core IgM Ab Non-Reactive (Non-Reactive) 08/04/18 05:52 Hep C IgG Ab Non-Reactive (Non-Reactive) 08/04/18 05:52 Blood Type A Negative 08/16/18 09:42 Blood Type Recheck No 08/16/18 09:42 Antibody Screen NEGATIVE 08/16/18 09:42 Crossmatch See Detail 08/16/18 09:42 Transfuse Platelets 08/17/2018 08/17/18 09:16 Spec Expiration Date 08/19/2018 - 234108/16/18 09:42 Microbiology 08/16/18 09:42 Blood Blood Culture - Preliminary No Growth after 24 hours 08/16/18 09:51 Blood Blood Culture - Preliminary No Growth after 24 hours 08/16/18 11:00 Urine,Voided Urine Culture - Final 08/04/18 05:52 Blood Blood Culture - Final No Growth after 144 hours 08/03/18 09:35 Blood Blood Culture - Final No Growth after 144 hours 08/01/18 01:47 Blood Blood Culture - Final No Growth after 144 hours 08/01/18 00:10 Urine,Voided Urine Culture - Final Assessment and Plan (1) Acute myelogenous leukemia Narrative/Plan: 62-year-old male who has a history of AML who has not done well with his most recent course of chemotherapy. And hopefully will be able to start a new regimen to the near future. Comes in the hospital feeling ill with similar fever and elevation of his liver function tests. He does have evidence of some chronic cholecystitis without evidence of acute cholecystitis. Elevated AST and ALT potentially from current illness, recent medications most likely. However underlying infection of the biliary tract is not excluded at this time. Although his alkaline phosphatase is elevated the total bilirubin is normal. We'll expect the liver function tests will rapidly improve. In his fever improves with no evidence of bacteremia or other significant focus of infection, hopefully becomes a rapid candidate for chemotherapy for the treatment of his AML. Antibiotic therapy while cultures are process was initiated with meropenem and vancomycin given his history and concerns to biliary sepsis. 08/05/2018 patient still feels poorly. Slightly improved. Having no fever. Still difficulty ingesting food because the discomfort is oral cavity but no evidence of thrush or oral ulcerations. We'll continue current antibiotic therapy while cultures are processing. Fortunately negative so far. Likely the patient will start his chemotherapy tomorrow is a cultures are negative. It is likely that his current level of illness is related to his AML and increasing amounts of blasts in his peripheral smear. 08/06/2018 patient feels poorly. Is having some low-grade fever liken the basis of his current AML. To receive new course of chemotherapy starting today. Cultures are negative. Patient remains on the extensive antimicrobial coverage, I believe this will continue for now. Will re- culture if febrile. It continues to have fevers with transition antifungal therapy. 08/07/2018 patient is feeling better today. Temperature maximum 100.9. No other new symptoms. Has tolerated his first infusions of the new chemotherapy regimen well. Cultures are monitored and no positive cultures so far. Continue to monitor on current antibiotic therapy. We'll quickly enhance antifungal therapy if fevers recur. 08/09/2018 patient continues to feel somewhat better, tolerated meals today Chemotherapy has been well-tolerated. He has no fever, continue current antimicrobials. 08/09/2018 patient does feel better. He is eating considerably better. On oral chemotherapy at this time. However continues to have pancytopenia. Fever 48 hours ago but now temperature is 97.0 will work with hematology oncology is asked to the antibiotic plan at discharge.. Is doing well with current antibiotic therapy. Unclear what overall plan is as far as discharge. Current Visit: Yes Status: Acute Priority: High Code(s): C92.00 - ACUTE MYELOBLASTIC LEUKEMIA, NOT HAVING ACHIEVED REMISSION SNOMED Code(s): 44441722 (2) Elevated liver enzymes Current Visit: Yes Status: Acute Code(s): R74.8 - ABNORMAL LEVELS OF OTHER SERUM ENZYMES SNOMED Code(s): 455202564
[2018-08-18] MEDS: MAG HYDROX/AL HYDROX/SIMETH 30 ML, LIDOCAINE VISCOUS 30 ML, diphenhydrAMINE ELIXIR 75 M... PO SCH ×24 (01:15→21:56)
[2018-08-18] MEDS: SALT AND SODA MOUTHWASH 1,000 ML PO SCH ×5 (01:15→21:56)
[2018-08-18] MEDS: traMADol 50 MG TAB PO PRN (05:33)
[2018-08-18 06:51] LABS: HCT 21.6 % (39.0-53.0); HGB 7.2 gm/dL (13.0-17.5); MCH 27.8 pg (25.0-35.0); MCHC 33.5 g/dL (31.0-37.0); MCV 82.8 fL (80.0-100.0); Mean Platelet Volume 7.8; RBC 2.61 m/uL (4.30-5.90); RDW 15.7 % (11.5-15.5)
[2018-08-18 07:04] LABS: Platelet Count 18 k/uL (150-450); WBC 0.3 k/uL (3.8-10.6)
[2018-08-18 07:06] LABS: ALT 57 U/L (21-72); AST 29 U/L (17-59); Albumin 2.5 g/dL (3.5-5.0); Alkaline Phosphatase 219 U/L (38-126); Anion Gap 5 mmol/L; Blood Urea Nitrogen 13 mg/dL (9-20); Carbon Dioxide 24 mmol/L (22-30); Chloride 107 mmol/L (98-107); Glucose 101 mg/dL (74-99); Potassium 3.9 mmol/L (3.5-5.1); Sodium 136 mmol/L (137-145); Total Bilirubin 1.4 mg/dL (0.2-1.3); Total Protein 5.1 g/dL (6.3-8.2)
[2018-08-18 08:02] LABS: Anisocytosis (M) Present
[2018-08-18] MEDS ORDERED: VANCOMYCIN TROUGH DUE 1 EACH MISC MISCELLANE ONE (09:00)
[2018-08-18] MEDS: ACYCLOVIR 200 MG CAP PO SCH ×2 (09:01→21:56)
[2018-08-18] MEDS: PANTOPRAZOLE 40 MG TABLET PO SCH (09:02)
[2018-08-18] MEDS: FLUCONAZOLE 100 MG TAB PO SCH (09:02)
[2018-08-18] MEDS: FERROUS SULFATE 325 MG TAB PO SCH ×3 (09:02→22:01)
[2018-08-18] MEDS: ALLOPURINOL 300 MG TAB PO SCH (09:02)
[2018-08-18] MEDS: POTASSIUM CHLORIDE ER 20 MEQ TAB.ER PO SCH ×2 (09:02→21:56)
[2018-08-18] MEDS: METOPROLOL SUCCINATE (ER) 50 MG TAB.ER.24H PO SCH (09:03)
[2018-08-18] MEDS: VANCOMYCIN 1,000 MG in SODIUM CHLORIDE 0.9% 250 ML IVPB SCH ×2 (09:03→22:01)
[2018-08-18] MEDS: FOLIC ACID 1 MG TAB PO SCH (09:05)
[2018-08-18] MEDS: ASCORBIC ACID 500 MG TAB PO SCH (09:05)
[2018-08-18] MEDS: MEROPENEM 1 GM in SODIUM CHLORIDE 0.9% 100 ML IVPB SCH ×2 (09:52→16:38)
--- NOTE | 2018-08-18 12:20 | P.PN ---
Subjective Progress Note Date: 08/18/18 Principal diagnosis: Acute myeloid leukemia, treatment In follow-up today patient continues to tolerate oral intake, no nausea or vomiting, oral irritation, fevers, cough, abdominal pain, diarrhea, dysuria, hematuria, or swelling. He is ambulating more. Objective - Vital Signs Vital signs: Vital Signs Temp 98.2 F 08/18/18 11:50 Pulse 108 H 08/18/18 11:50 Resp 17 08/18/18 11:50 BP 110/55 08/18/18 11:50 Pulse Ox 97 08/18/18 11:50 Intake & Output 08/17/18 08/18/18 08/18/18 18:59 06:59 18:59 Intake Total 1547 1020 Output Total 460 Balance 1547 560 Weight 62 kg 63 kg Intake: Intake, IV Titration 250 Amount Vancomycin 1,000 mg In 250 Sodium Chloride 0.9% 250 ml @ 125 mls/hr IVPB Q12H [facility] Rx#:[id number] Oral 1240 770 Blood Product 307 Platelet Irr Pheresis 2 307 Acda Unit [id number] Output: Urine 460 Other: Voiding Method Urinal Urinal Urinal # Voids 3 2 - Constitutional General appearance: Present: cooperative, no acute distress, thin - EENT Eyes: Present: anicteric sclerae, EOMI, poor dentition ENT: Present: hearing grossly normal, normal oropharynx - Respiratory Respiratory: bilateral: CTA - Cardiovascular Rhythm: regular Heart sounds: normal: S1, S2 Abnormal Heart Sounds: Absent: systolic murmur, diastolic murmur, rub, S3 Gallop, S4 Gallop, click, other - Peripheral edema leg Peripheral Edema: bilateral: None - Gastrointestinal General gastrointestinal: Present: normal bowel sounds, soft - Neurologic Neurologic: Present: CNII-XII intact - Musculoskeletal Musculoskeletal: Present: generalized weakness, strength equal bilaterally - Psychiatric Psychiatric: Present: A&O x's 3, appropriate affect, intact judgment & insight - Labs CBC & Chem 7: 08/18/18 06:32 08/18/18 06:32 Labs: Abnormal Lab Results - Last 24 Hours (Table) 08/18/18 08/18/18 Range/Units 06:32 06:32 WBC 0.3 L* (3.8-10.6) k/uL RBC 2.61 L (4.30-5.90) m/uL Hgb 7.2 L (13.0-17.5) gm/dL Hct 21.6 L (39.0-53.0) % RDW 15.7 H (11.5-15.5) % Plt Count 18 L* D (150-450) k/uL Sodium 136 L (137-145) mmol/L Creatinine 0.63 L (0.66-1.25) mg/dL Glucose 101 H (74-99) mg/dL Calcium 8.0 L (8.4-10.2) mg/dL Total Bilirubin 1.4 H (0.2-1.3) mg/dL Alkaline Phosphatase 219 H (38-126) U/L Total Protein 5.1 L (6.3-8.2) g/dL Albumin 2.5 L (3.5-5.0) g/dL Microbiology - Last 24 Hours (Table) 08/16/18 09:42 Blood Culture - Preliminary Blood No Growth after 48 hours 08/16/18 09:51 Blood Culture - Preliminary Blood No Growth after 48 hours 08/16/18 11:00 Urine Culture - Final Urine,Voided Assessment and Plan (1) Acute myelogenous leukemia Narrative/Plan: Patient is admitted for treatment of the same. 7 days of vidaza completed, continue oral venetoclax at 400 mg daily. Bone marrow will be scheduled outpatient for 3 weeks post treatment. Once reported no blasts, patient will then be initiated on G-CSF. Patient will be in 3 times a week CBC monitoring in the office with transfusions when necessary Current Visit: Yes Status: Acute Priority: High Code(s): C92.00 - ACUTE MYELOBLASTIC LEUKEMIA, NOT HAVING ACHIEVED REMISSION SNOMED Code(s): 70008786 (2) Pancytopenia Narrative/Plan: Secondary to disease as well as treatment of disease. No intervention for low white count. No need for transfusions today Transfuse platelets if less than 10,000 or symptomatic Transfuse for Hgb< 7, unless symptomatic, hemoglobin is stable today No GCSF at this time. Patient is on prophylactic antiviral, antifungal and antibiotics, Infectious Disease is following. Current Visit: Yes Status: Acute Priority: High Code(s): D61.818 - OTHER PANCYTOPENIA SNOMED Code(s): 309599661 Plan: Labs daily while inpatient Daily follow-up. Cont supportive care Specialty bed. Close monitoring of the skin. High-protein diet recommendations, reinforced with patient and family Ambulatory requirements reviewed with patient and sister at bedside. Discussed case with Attending. To get patient on his 3 times a week follow-up, prescriptions in order in to review with family recommendations for care and his follow-up plan request discharged either tomorrow or early Thursday morning. We will see how quickly we are able to get patient's multiple medications coordinated and see what his CBC is in the a.m. as it is stable today. We will collaborate with Infectious Disease regarding antiviral, antifungal and antibacterial medications.
--- NOTE | 2018-08-18 12:48 | P.PN ---
Subjective Mr. Nevarez is a 62-year-old gentleman admitted with severe symptomatic anemia. Patient has acute myelogenous leukemia with fevers. He is currently being followed by multiple consultants. He is on broad-spectrum antibiotics including meropenem and fluconazole. Patient had sustained V. tach which was believed to be secondary to hypomagnesemia. Patient has congestive heart failure with ejection fraction around 35%. He has severe leukocytosis. On 08/07/18 -Today patient is lying in the bed. He is cachectic and chronically ill appearing. He has been transferred to the oncology floor yesterday and started on chemotherapy. Patient states that he still weak but feeling a little better today. He reports that his leukocytosis is improved and he is able to tolerate a small amount of his diet. He continues to have fevers, highest recorded over the past 24 hours is 100.9. Patient denies having any chest pain or difficulty in breathing. He denies having any abdominal pain nausea vomiting or diarrhea. No dysuria or hematuria. Denies having any headaches or blurring of his vision or focal weakness. On 08/08/18 - patient is lying in bed. He states overall he is improving. He is cachectic. Appears to be no acute distress. Chemotherapy has been initiated by oncology team, Dr. Raymond villafana. His been tolerating okay. Patient states his appetite is still bad and he is not able to eat much. On 08/09/18 - patient is lying in bed. Appears to be no acute distress. As per the nursing staff report, patient's appetite is much better. Patient also reports that his oral mucosa is less painful and that he is able to eat more. Overall patient reports feeling much better. Patient is getting his chemotherapy-day 4 today. On review of systems - constitutional- history unless weakness and fatigue. No chest pain or palpitations. No cough or difficulty in breathing. No abdominal pain nausea vomiting or diarrhea. No dysuria or hematuria. 08/10/2018 Patient today with fully awake and oriented. He is generally weak. His appetite is nondisplaced and he is eating a little bit however he has no nausea vomiting or abdominal pain. She still fatigue with no respiratory signs and symptoms. No chest pain and or dyspnea. He is hemodynamically stable. However he still have fever of 100.1 today. And labs show still severe pancytopenia with WBC of 0.3, hemoglobin of 7.8 and platelets 6. His BMP was unremarkable. Liver enzymes are trending down slowly. He remains on chemotherapy orally and oncology team are following the patient closely. He still on antibiotic as meropenem and vancomycin and acyclovir. An infectious disease are evaluated the patient. 08/11/2018 Patient feels a little bit better today, he feels stronger area that her eating compared to yesterday. No overt respiratory symptoms or chest pain. He is hemodynamically stable. His WBC 0.2, platelets 10, hemoglobin 7.1, creatinine is 0.7. Liver enzymes are slightly trending down. Patient seemed remains on chemotherapy and oncology team R following closely 08/12/2018 Patient continued to improve regarding his strength and appetite. He has occasional cough with no phlegm or chest pain. No dyspnea. He denies abdominal pain or change in urine or bowel habits. He has no blood in his stool and no dark-colored stool. Vitals looks stable. Labs from today are pending. Today is getting the last dose of his oral chemotherapy. We are going to repeat his CT of the thorax for follow-up of his pulmonary nodules 08/13/2018 Patient continued to improve gradually. No specific symptoms today. He has better appetite and strength although he feels generally weak. Patient is afebrile and hemodynamically stable. WBC 0.2. Hemoglobin 7.4 after went of blood transfusion. Platelets 6. BMP was unremarkable. Liver enzymes improving gradually. Patient remains on broad-spectrum antibiotics. 08/14/2018 No change in the clinical condition of the patient with no new symptoms. No chest pain or dyspnea. His platelets slightly improving from 6 up to 18. Hemoglobin 7.1 and WBC 0.2. Creatinine 0.6. Distal flaps looks stable. Karime ent is hemodynamically stable. Oncology team are following 08/15/2018 Patient is fully awake and oriented. Today he has some coughing with little phlegm. No chest pain no dyspnea while he was lying in bed. He had fever 2 days ago at 100.1. Patient remains on the same broad-spectrum antibiotics. We'll do a chest x-ray for follow-up. Send sputum culture. Labs looking same with WBC 0.2, hemoglobin 7.3, platelet 12. The MP is unremarkable. Liver enzymes are trending down. DC telemetry 08/16/2018 Patient is lying in bed comfortable, he walks to the bathroom and comes back with no exertional dyspnea. He still have some coughing with phlegm but no chest pain or dyspnea. Patient is still have temperature of 100.0 today. No abdominal pain or diarrhea. No urinary symptoms. Patient remains on broad- spectrum antibiotics. Repeat urine analysis is negative for infections. Patient still have pancytopenia and his hemoglobin 6.9, patient is given 1 units of blood transfusion today. BMP is unremarkable. Oncology team input is appreciated. Sputum culture is ordered for possible respiratory infection: Pending 08/17/2018 Patient is lying in bed comfortable, his cough has improved since yesterday, no chest pain , no more fever . pt with pancytopenia , he is status blood trans fusion , oncology team are following . 08/18/2018 Patient improving gradually, with normal respiratory or urinary symptoms. Patient with no exertional dyspnea although he walks only for short distances. He feels generally weak. Patient had fever yesterday of 100.2. Patient pancytopenia is a stable. He is status post blood transfusion and his hemoglobin 7.2. His iron pills were decreased from daily to 3 times a day. Culture so far is negative. On discharge patient will need several antibiotics, antifungal and antiviral. I discussed the case with oncology team today Objective - Vital Signs Vital signs: Vital Signs Temp 98.2 F 08/18/18 11:50 Pulse 108 H 08/18/18 11:50 Resp 17 08/18/18 11:50 BP 110/55 08/18/18 11:50 Pulse Ox 97 08/18/18 11:50 Intake & Output 08/17/18 08/18/18 08/18/18 18:59 06:59 18:59 Intake Total 1547 1020 Output Total 460 Balance 1547 560 Weight 62 kg 63 kg Intake: Intake, IV Titration 250 Amount Vancomycin 1,000 mg In 250 Sodium Chloride 0.9% 250 ml @ 125 mls/hr IVPB Q12H [facility] Rx#:[id number] Oral 1240 770 Blood Product 307 Platelet Irr Pheresis 2 307 Acda Unit [id number] Output: Urine 460 Other: Voiding Method Urinal Urinal Urinal # Voids 3 2 - Exam GENERAL: Cachectic and chronically ill appearing. Temporal wasting HEENT: Pallor positive. Oral mucosa looks much better compared to couple of days back. CARDIOVASCULAR: S1 and S2 present. No murmurs, rubs, or gallops. tachycardic PULMONARY: Bilateral expiratory wheezes. Diminished breath sounds at the lower lung tristan. ABDOMEN: Soft, nontender, nondistended, normoactive bowel sounds. No palpable organomegaly. MUSCULOSKELETAL: No joint swelling or deformity. EXTREMITIES: No cyanosis, clubbing, or pedal edema. NEUROLOGICAL: Gross neurological examination did not reveal any focal deficits. - Labs CBC & Chem 7: 08/18/18 06:32 08/18/18 06:32 Labs: Abnormal Lab Results - Last 24 Hours (Table) 08/18/18 08/18/18 Range/Units 06:32 06:32 WBC 0.3 L* (3.8-10.6) k/uL RBC 2.61 L (4.30-5.90) m/uL Hgb 7.2 L (13.0-17.5) gm/dL Hct 21.6 L (39.0-53.0) % RDW 15.7 H (11.5-15.5) % Plt Count 18 L* D (150-450) k/uL Sodium 136 L (137-145) mmol/L Creatinine 0.63 L (0.66-1.25) mg/dL Glucose 101 H (74-99) mg/dL Calcium 8.0 L (8.4-10.2) mg/dL Total Bilirubin 1.4 H (0.2-1.3) mg/dL Alkaline Phosphatase 219 H (38-126) U/L Total Protein 5.1 L (6.3-8.2) g/dL Albumin 2.5 L (3.5-5.0) g/dL Microbiology - Last 24 Hours (Table) 08/16/18 09:42 Blood Culture - Preliminary Blood No Growth after 48 hours 08/16/18 09:51 Blood Culture - Preliminary Blood No Growth after 48 hours 08/16/18 11:00 Urine Culture - Final Urine,Voided Assessment and Plan Assessment: Acute myelogenous leukemia, on oral chemotherapy Pancytopenia, secondary to above Fever, with neutropenia, on broad spectum antibiotic. Possible pneumonia, hospital-acquired. Related to his compromised community Elevated liver function tests, improving gradually Generalized weakness. Improving history of Congestive heart failure - chronic systolic with ejection fraction of 35%-not in exacerbation recent Sustained V. tach - possibily due to hypomagnesemia, Heart rate is stable currently Plan: Patient has been started on chemotherapy by oncology - day 7/out of 7, today. Patient still has pancytopenia and fever. continue with broad spectrum antibiotic. And patient reports that he feels better overall. Continue with fluconazole, vancomycin and meropenem. Blood cultures and urine cultures no growth so far. But overall prognosis is still poor. several consultants are following the pt including oncology and GI angelo and ID team as well . Further recommendations to follow depending on the progress of the patient. DVT px: no heparin in view of his severe thrombocytopenia GI px: protonix
[2018-08-18] MEDS: VENETOCLAX 100 MG PO SCH (13:24)
[2018-08-18] MEDS: ACETAMINOPHEN TAB 500 MG TAB PO PRN (22:01)
[2018-08-19] MEDS: MEROPENEM 1 GM in SODIUM CHLORIDE 0.9% 100 ML IVPB SCH ×4 (00:12→23:39)
[2018-08-19] MEDS: SALT AND SODA MOUTHWASH 1,000 ML PO SCH ×6 (00:12→23:39)
[2018-08-19] MEDS: MAG HYDROX/AL HYDROX/SIMETH 30 ML, LIDOCAINE VISCOUS 30 ML, diphenhydrAMINE ELIXIR 75 M... PO SCH ×28 (00:19→22:12)
[2018-08-19] MEDS: METOPROLOL SUCCINATE (ER) 50 MG TAB.ER.24H PO SCH ×3 (02:59→20:13)
[2018-08-19] MEDS: ALLOPURINOL 300 MG TAB PO SCH (09:04)
[2018-08-19] MEDS: FERROUS SULFATE 325 MG TAB PO SCH ×3 (09:04→21:58)
[2018-08-19] MEDS: ACYCLOVIR 200 MG CAP PO SCH ×2 (09:04→20:13)
[2018-08-19] MEDS: POTASSIUM CHLORIDE ER 20 MEQ TAB.ER PO SCH ×2 (09:04→20:14)
[2018-08-19] MEDS: PANTOPRAZOLE 40 MG TABLET PO SCH (09:04)
[2018-08-19] MEDS: VANCOMYCIN 1,000 MG in SODIUM CHLORIDE 0.9% 250 ML IVPB SCH ×2 (09:04→21:55)
[2018-08-19] MEDS: FLUCONAZOLE 100 MG TAB PO SCH (09:05)
[2018-08-19] MEDS: FOLIC ACID 1 MG TAB PO SCH (09:05)
[2018-08-19] MEDS: ASCORBIC ACID 500 MG TAB PO SCH (09:05)
[2018-08-19 09:22] LABS: HCT 22.5 % (39.0-53.0); HGB 7.3 gm/dL (13.0-17.5); MCH 27.6 pg (25.0-35.0); MCHC 32.7 g/dL (31.0-37.0); MCV 84.5 fL (80.0-100.0); Mean Platelet Volume 8.4; RBC 2.66 m/uL (4.30-5.90); RDW 15.9 % (11.5-15.5)
[2018-08-19 09:28] LABS: ALT 92 U/L (21-72); AST 57 U/L (17-59); Albumin 2.6 g/dL (3.5-5.0); Alkaline Phosphatase 292 U/L (38-126); Anion Gap 5 mmol/L; Blood Urea Nitrogen 11 mg/dL (9-20); Calcium 7.9 mg/dL (8.4-10.2); Carbon Dioxide 24 mmol/L (22-30); Chloride 109 mmol/L (98-107); Glucose 98 mg/dL (74-99); Sodium 138 mmol/L (137-145); Total Bilirubin 1.3 mg/dL (0.2-1.3); Total Protein 5.3 g/dL (6.3-8.2)
[2018-08-19 09:29] LABS: Platelet Count 12 k/uL (150-450); WBC 0.4 k/uL (3.8-10.6)
[2018-08-19 10:14] LABS: Poikilocytosis (M) Present
--- NOTE | 2018-08-19 14:43 | P.PN ---
Subjective Mr. Nevarez is a 62-year-old gentleman admitted with severe symptomatic anemia. Patient has acute myelogenous leukemia with fevers. He is currently being followed by multiple consultants. He is on broad-spectrum antibiotics including meropenem and fluconazole. Patient had sustained V. tach which was believed to be secondary to hypomagnesemia. Patient has congestive heart failure with ejection fraction around 35%. He has severe leukocytosis. On 08/07/18 -Today patient is lying in the bed. He is cachectic and chronically ill appearing. He has been transferred to the oncology floor yesterday and started on chemotherapy. Patient states that he still weak but feeling a little better today. He reports that his leukocytosis is improved and he is able to tolerate a small amount of his diet. He continues to have fevers, highest recorded over the past 24 hours is 100.9. Patient denies having any chest pain or difficulty in breathing. He denies having any abdominal pain nausea vomiting or diarrhea. No dysuria or hematuria. Denies having any headaches or blurring of his vision or focal weakness. On 08/08/18 - patient is lying in bed. He states overall he is improving. He is cachectic. Appears to be no acute distress. Chemotherapy has been initiated by oncology team, Dr. Raymond villafana. His been tolerating okay. Patient states his appetite is still bad and he is not able to eat much. On 08/09/18 - patient is lying in bed. Appears to be no acute distress. As per the nursing staff report, patient's appetite is much better. Patient also reports that his oral mucosa is less painful and that he is able to eat more. Overall patient reports feeling much better. Patient is getting his chemotherapy-day 4 today. On review of systems - constitutional- history unless weakness and fatigue. No chest pain or palpitations. No cough or difficulty in breathing. No abdominal pain nausea vomiting or diarrhea. No dysuria or hematuria. 08/10/2018 Patient today with fully awake and oriented. He is generally weak. His appetite is nondisplaced and he is eating a little bit however he has no nausea vomiting or abdominal pain. She still fatigue with no respiratory signs and symptoms. No chest pain and or dyspnea. He is hemodynamically stable. However he still have fever of 100.1 today. And labs show still severe pancytopenia with WBC of 0.3, hemoglobin of 7.8 and platelets 6. His BMP was unremarkable. Liver enzymes are trending down slowly. He remains on chemotherapy orally and oncology team are following the patient closely. He still on antibiotic as meropenem and vancomycin and acyclovir. An infectious disease are evaluated the patient. 08/11/2018 Patient feels a little bit better today, he feels stronger area that her eating compared to yesterday. No overt respiratory symptoms or chest pain. He is hemodynamically stable. His WBC 0.2, platelets 10, hemoglobin 7.1, creatinine is 0.7. Liver enzymes are slightly trending down. Patient seemed remains on chemotherapy and oncology team R following closely 08/12/2018 Patient continued to improve regarding his strength and appetite. He has occasional cough with no phlegm or chest pain. No dyspnea. He denies abdominal pain or change in urine or bowel habits. He has no blood in his stool and no dark-colored stool. Vitals looks stable. Labs from today are pending. Today is getting the last dose of his oral chemotherapy. We are going to repeat his CT of the thorax for follow-up of his pulmonary nodules 08/13/2018 Patient continued to improve gradually. No specific symptoms today. He has better appetite and strength although he feels generally weak. Patient is afebrile and hemodynamically stable. WBC 0.2. Hemoglobin 7.4 after went of blood transfusion. Platelets 6. BMP was unremarkable. Liver enzymes improving gradually. Patient remains on broad-spectrum antibiotics. 08/14/2018 No change in the clinical condition of the patient with no new symptoms. No chest pain or dyspnea. His platelets slightly improving from 6 up to 18. Hemoglobin 7.1 and WBC 0.2. Creatinine 0.6. Distal flaps looks stable. Karime ent is hemodynamically stable. Oncology team are following 08/15/2018 Patient is fully awake and oriented. Today he has some coughing with little phlegm. No chest pain no dyspnea while he was lying in bed. He had fever 2 days ago at 100.1. Patient remains on the same broad-spectrum antibiotics. We'll do a chest x-ray for follow-up. Send sputum culture. Labs looking same with WBC 0.2, hemoglobin 7.3, platelet 12. The MP is unremarkable. Liver enzymes are trending down. DC telemetry 08/16/2018 Patient is lying in bed comfortable, he walks to the bathroom and comes back with no exertional dyspnea. He still have some coughing with phlegm but no chest pain or dyspnea. Patient is still have temperature of 100.0 today. No abdominal pain or diarrhea. No urinary symptoms. Patient remains on broad- spectrum antibiotics. Repeat urine analysis is negative for infections. Patient still have pancytopenia and his hemoglobin 6.9, patient is given 1 units of blood transfusion today. BMP is unremarkable. Oncology team input is appreciated. Sputum culture is ordered for possible respiratory infection: Pending 08/17/2018 Patient is lying in bed comfortable, his cough has improved since yesterday, no chest pain , no more fever . pt with pancytopenia , he is status blood trans fusion , oncology team are following . 08/18/2018 Patient improving gradually, with normal respiratory or urinary symptoms. Patient with no exertional dyspnea although he walks only for short distances. He feels generally weak. Patient had fever yesterday of 100.2. Patient pancytopenia is a stable. He is status post blood transfusion and his hemoglobin 7.2. His iron pills were decreased from daily to 3 times a day. Culture so far is negative. On discharge patient will need several antibiotics, antifungal and antiviral. I discussed the case with oncology team today 08/02/2018 Patient is fully awake, clinically similar to yesterday with no specific complaints. Patient has no respiratory symptoms like no coughing or dyspnea. Patient has no chest pain. Patient has no leg swelling or urinary complaints. Patient with no diarrhea however patient spiked fever yesterday at 100 is been having these spikes every 2-3 days. Discussed the case with oncology and infectious disease team. Recommend going to keep on monitor the patient for now, infectious disease are going to evaluated the patient today for any further recommendation. Labs stable, however patient is still having significant pancytopenia with WBC 0.4, hemoglobin 7.3 and platelets 12. Creatinine is normal as well as electrolytes. Objective - Vital Signs Vital signs: Vital Signs Temp 99.6 F 08/19/18 12:33 Pulse 110 H 08/19/18 12:33 Resp 16 08/19/18 12:33 BP 90/54 08/19/18 12:33 Pulse Ox 99 08/19/18 12:33 Intake & Output 08/18/18 08/19/18 08/19/18 18:59 06:59 18:59 Intake Total 590 Output Total 2 Balance 588 Weight 63.5 kg Intake: Oral 590 Output: Stool 2 Other: Voiding Method Urinal Urinal Urinal # Voids 3 3 # Bowel Movements 2 - Exam GENERAL: Cachectic and chronically ill appearing. Temporal wasting HEENT: Pallor positive. Oral mucosa looks much better compared to couple of days back. CARDIOVASCULAR: S1 and S2 present. No murmurs, rubs, or gallops. tachycardic PULMONARY: Bilateral expiratory wheezes. Diminished breath sounds at the lower lung tristan. ABDOMEN: Soft, nontender, nondistended, normoactive bowel sounds. No palpable organomegaly. MUSCULOSKELETAL: No joint swelling or deformity. EXTREMITIES: No cyanosis, clubbing, or pedal edema. NEUROLOGICAL: Gross neurological examination did not reveal any focal deficits. - Labs CBC & Chem 7: 08/19/18 08:55 08/19/18 08:55 Labs: Abnormal Lab Results - Last 24 Hours (Table) 08/19/18 08/19/18 Range/Units 08:55 08:55 WBC 0.4 L* (3.8-10.6) k/uL RBC 2.66 L (4.30-5.90) m/uL Hgb 7.3 L (13.0-17.5) gm/dL Hct 22.5 L (39.0-53.0) % RDW 15.9 H (11.5-15.5) % Plt Count 12 L* (150-450) k/uL Chloride 109 H (98-107) mmol/L Creatinine 0.63 L (0.66-1.25) mg/dL Calcium 7.9 L (8.4-10.2) mg/dL ALT 92 H (21-72) U/L Alkaline Phosphatase 292 H (38-126) U/L Total Protein 5.3 L (6.3-8.2) g/dL Albumin 2.6 L (3.5-5.0) g/dL Microbiology - Last 24 Hours (Table) 08/16/18 09:42 Blood Culture - Preliminary Blood No Growth after 72 hours 08/16/18 09:51 Blood Culture - Preliminary Blood No Growth after 72 hours Assessment and Plan Assessment: Acute myelogenous leukemia, on oral chemotherapy Pancytopenia, secondary to above Fever, with neutropenia, on broad spectum antibiotic. Possible pneumonia, hospital-acquired. Related to his compromised community Elevated liver function tests, improving gradually Generalized weakness. Improving history of Congestive heart failure - chronic systolic with ejection fraction of 35%-not in exacerbation recent Sustained V. tach - possibily due to hypomagnesemia, Heart rate is stable currently Plan: Patient has been started on chemotherapy by oncology - day 7/out of 7, today. Patient still has pancytopenia and fever. continue with broad spectrum a ntibiotic. And patient reports that he feels better overall. Continue with fluconazole, vancomycin and meropenem. Blood cultures and urine cultures no growth so far. But overall prognosis is still poor. several consultants are following the pt including oncology and GI angelo and ID team as well . Further recommendations to follow depending on the progress of the patient. DVT px: no heparin in view of his severe thrombocytopenia GI px: protonix
[2018-08-19] MEDS: VENETOCLAX 100 MG PO SCH (16:06)
--- NOTE | 2018-08-19 19:41 | P.PN ---
Subjective Progress Note Date: 08/19/18 Principal diagnosis: Acute myeloid leukemia, treatment In follow-up today patient is sitting in the chair with his lunch in front of him, he states he is not hungry and is asking to get back in bed after only being out of bed for 10 minutes. Encouraged patient to send the chair for at least an hour. Patient denied any pain, he just is really tired. Objective - Vital Signs Vital signs: Vital Signs Temp 99.6 F 08/19/18 12:33 Pulse 110 H 08/19/18 12:33 Resp 16 08/19/18 12:33 BP 90/54 08/19/18 12:33 Pulse Ox 99 08/19/18 12:33 Intake & Output 08/19/18 08/19/18 08/20/18 06:59 18:59 06:59 Intake Total 590 400 Output Total 2 800 Balance 588 -400 Weight 63.5 kg Intake: Oral 590 400 Output: Urine 800 Stool 2 Other: Voiding Method Urinal Urinal # Voids 3 # Bowel Movements 2 - Constitutional General appearance: Present: cooperative, no acute distress, thin - EENT Eyes: Present: anicteric sclerae, EOMI, poor dentition ENT: Present: normal oropharynx - Respiratory Respiratory: bilateral: CTA - Cardiovascular Heart sounds: normal: S1, S2 Abnormal Heart Sounds: Absent: systolic murmur, diastolic murmur, rub, S3 Gallop, S4 Gallop, click, other - Peripheral edema leg Peripheral Edema: bilateral: None - Gastrointestinal General gastrointestinal: Present: normal bowel sounds, scaphoid, soft. Absent: absent bowel sounds, decreased bowel sounds, distended, hepatomegaly, hyperactive bowel sounds, organomegaly, rigid, splenomegaly, tenderness, umbilical hernia, ventral hernia - Neurologic Neurologic: Present: CNII-XII intact - Musculoskeletal Musculoskeletal: Present: generalized weakness - Psychiatric Psychiatric: Present: A&O x's 3, appropriate affect, intact judgment & insight - Labs CBC & Chem 7: 08/19/18 08:55 08/19/18 08:55 Labs: Abnormal Lab Results - Last 24 Hours (Table) 08/19/18 08/19/18 Range/Units 08:55 08:55 WBC 0.4 L* (3.8-10.6) k/uL RBC 2.66 L (4.30-5.90) m/uL Hgb 7.3 L (13.0-17.5) gm/dL Hct 22.5 L (39.0-53.0) % RDW 15.9 H (11.5-15.5) % Plt Count 12 L* (150-450) k/uL Chloride 109 H (98-107) mmol/L Creatinine 0.63 L (0.66-1.25) mg/dL Calcium 7.9 L (8.4-10.2) mg/dL ALT 92 H (21-72) U/L Alkaline Phosphatase 292 H (38-126) U/L Total Protein 5.3 L (6.3-8.2) g/dL Albumin 2.6 L (3.5-5.0) g/dL Microbiology - Last 24 Hours (Table) 08/16/18 09:42 Blood Culture - Preliminary Blood No Growth after 72 hours 08/16/18 09:51 Blood Culture - Preliminary Blood No Growth after 72 hours Assessment and Plan (1) Acute myelogenous leukemia Narrative/Plan: Patient is admitted for treatment of the same. 7 days of vidaza completed 08/12. Continue oral venetoclax at 400 mg daily. Bone marrow will be scheduled outpatient for week of August 30. Once reported no blasts, patient will then be initiated on G-CSF. Patient will be in 3 times a week CBC monitoring in the office with transfusions when necessary Current Visit: Yes Status: Acute Priority: High Code(s): C92.00 - ACUTE MYELOBLASTIC LEUKEMIA, NOT HAVING ACHIEVED REMISSION SNOMED Code(s): 11162196 (2) Pancytopenia Narrative/Plan: Secondary to disease as well as treatment of disease. No intervention for low white count. No need for transfusions today Transfuse platelets if less than 10,000 or symptomatic Transfuse for Hgb< 7, unless symptomatic, hemoglobin is stable today No GCSF at this time. Patient is on prophylactic antiviral, antifungal and antibiotics, Infectious Disease is following. Current Visit: Yes Status: Acute Priority: High Code(s): D61.818 - OTHER PANCYTOPENIA SNOMED Code(s): 547662956 Plan: Today patient was not as active and vocal as he typically is. The Attending did hold up his discharge. We will continue to follow while patient is in the hospital. I did talk with patient's daughter on the phone about his condition. Patient actually is stabilizing it is improved from the acute leukemia standpoint. He does require significant amounts of encouragement to get ambulating and I told her that it will be up to her and tose caring for him to keep him going. I suggested palliative care so that patient could continue treatment but the patient and family could get additional support that I think they all need. We discussed the difference between palliative care and hospice care, with palliative care patient can still receive active treatment. She verbalized understanding and she stated that she would talk to her father regarding the same. Labs daily while inpatient Daily follow-up. Cont supportive care Specialty bed. Close monitoring of the skin. High-protein diet recommendations, reinforced with patient and family Ambulatory requirements reviewed with patient and sister at bedside. Discussed case with Attending. Attending discussing with Infectious Disease recommendations regarding antiviral, antifungal and antibacterial medications.
[2018-08-20] MEDS: MAG HYDROX/AL HYDROX/SIMETH 30 ML, LIDOCAINE VISCOUS 30 ML, diphenhydrAMINE ELIXIR 75 M... PO SCH ×12 (04:32→11:44)
[2018-08-20] MEDS: SALT AND SODA MOUTHWASH 1,000 ML PO SCH ×2 (06:05→10:16)
[2018-08-20] MEDS: FOLIC ACID 1 MG TAB PO SCH (08:49)
[2018-08-20] MEDS: ACYCLOVIR 200 MG CAP PO SCH (08:49)
[2018-08-20] MEDS: MEROPENEM 1 GM in SODIUM CHLORIDE 0.9% 100 ML IVPB SCH (08:49)
[2018-08-20] MEDS: ASCORBIC ACID 500 MG TAB PO SCH (08:49)
[2018-08-20] MEDS: METOPROLOL SUCCINATE (ER) 50 MG TAB.ER.24H PO SCH (08:49)
[2018-08-20] MEDS: PANTOPRAZOLE 40 MG TABLET PO SCH (08:49)
[2018-08-20] MEDS: FERROUS SULFATE 325 MG TAB PO SCH (08:49)
[2018-08-20] MEDS: POTASSIUM CHLORIDE ER 20 MEQ TAB.ER PO SCH (08:49)
[2018-08-20] MEDS: FLUCONAZOLE 100 MG TAB PO SCH (08:50)
[2018-08-20] MEDS: ALLOPURINOL 300 MG TAB PO SCH (08:50)
[2018-08-20 08:54] LABS: MCH 28.4 pg (25.0-35.0); MCHC 34.4 g/dL (31.0-37.0); MCV 82.5 fL (80.0-100.0); RBC 2.39 m/uL (4.30-5.90); RDW 15.8 % (11.5-15.5)
[2018-08-20 09:09] LABS: WBC 0.5 k/uL (3.8-10.6)
[2018-08-20 09:11] LABS: ALT 92 U/L (21-72); AST 60 U/L (17-59); Albumin 2.4 g/dL (3.5-5.0); Alkaline Phosphatase 277 U/L (38-126); Anion Gap 7 mmol/L; Blood Urea Nitrogen 11 mg/dL (9-20); Calcium 7.9 mg/dL (8.4-10.2); Carbon Dioxide 23 mmol/L (22-30); Chloride 107 mmol/L (98-107); Glucose 105 mg/dL (74-99); Potassium 3.7 mmol/L (3.5-5.1); Sodium 137 mmol/L (137-145); Total Bilirubin 1.3 mg/dL (0.2-1.3); Total Protein 5.1 g/dL (6.3-8.2)
[2018-08-20 09:12] LABS: HGB 6.8 gm/dL (13.0-17.5)
[2018-08-20 09:13] LABS: HCT 19.7 % (39.0-53.0); Platelet Count 9 k/uL (150-450)
[2018-08-20] MEDS: VANCOMYCIN 1,000 MG in SODIUM CHLORIDE 0.9% 250 ML IVPB SCH (10:16)
[2018-08-20 10:47] LABS: Poikilocytosis (M) Present
[2018-08-20 12:59] VITALS: RESP 20
[2018-08-20] MEDS: VENETOCLAX 100 MG PO SCH (14:08)
[2018-08-20 14:25] VITALS: TEMP 97.8
[2018-08-20 16:34] VITALS: BP 110/64; PULSE 110
--- NOTE | 2018-08-20 16:50 | P.PN ---
Subjective Progress Note Date: 08/20/18 Principal diagnosis: Febrile Neutropenia AML Transfuse PRBC and Platelets today, hoping to discharge, with prophylaxitc coverage per Dr. Corrales after discharge. he will need to continue on Venclexta and plan to repeat BM< Biopsy approx 14 days. Objective - Vital Signs Vital signs: Vital Signs Temp 97.8 F 08/20/18 14:44 Pulse 104 H 08/20/18 15:24 Resp 20 08/20/18 15:24 BP 107/59 08/20/18 15:24 Pulse Ox 100 08/20/18 15:24 Intake & Output 08/19/18 08/20/18 08/20/18 18:59 06:59 18:59 Intake Total 400 1420 303 Output Total 800 560 Balance -400 860 303 Weight 62 kg 62 kg Intake: Oral 400 1420 Blood Product 303 Platelet Irr Pheresis 2 303 Acda Unit [id number] Rc Irr As1 Unit 0 [id number] Output: Urine 800 560 Other: Voiding Method Urinal Urinal # Voids 2 - Exam - Constitutional General appearance: no acute distress - EENT Eyes: EOMI, PERRLA ENT: hearing grossly normal, other (scant old blood on lower gums) - Neck Neck: no lymphadenopathy - Respiratory Respiratory: bilateral: CTA - Cardiovascular Rhythm: regular Heart sounds: normal: S1, S2 - Gastrointestinal General gastrointestinal: normal bowel sounds, soft - Integumentary Integumentary: normal - Neurologic Neurologic: CNII-XII intact - Musculoskeletal Musculoskeletal: strength equal bilaterally - Psychiatric Psychiatric: A&O x's 3, appropriate affect - Labs CBC & Chem 7: 08/20/18 08:16 08/20/18 08:16 Labs: Abnormal Lab Results - Last 24 Hours (Table) 08/20/18 08/20/18 08/20/18 Range/Units 08:16 08:16 10:44 WBC 0.5 L* (3.8-10.6) k/uL RBC 2.39 L (4.30-5.90) m/uL Hgb 6.8 L* (13.0-17.5) gm/dL Hct 19.7 L* (39.0-53.0) % RDW 15.8 H (11.5-15.5) % Plt Count 9 L* (150-450) k/uL Glucose 105 H (74-99) mg/dL Calcium 7.9 L (8.4-10.2) mg/dL AST 60 H (17-59) U/L ALT 92 H (21-72) U/L Alkaline Phosphatase 277 H (38-126) U/L Total Protein 5.1 L (6.3-8.2) g/dL Albumin 2.4 L (3.5-5.0) g/dL Crossmatch See Detail Microbiology - Last 24 Hours (Table) 08/16/18 09:42 Blood Culture - Preliminary Blood No Growth after 96 hours 08/16/18 09:51 Blood Culture - Preliminary Blood No Growth after 96 hours Assessment and Plan Plan: Pancytopenia - Secondary to underlying leukemia, which unfortunetly he has failed initial induction therapy - Blast Count today 86% - This will continue to worsen if his AML does not respond to therapy with re- induction - Daily CBC and Supportive irradiated transfusions at this time - Treatment of active infections and prophylaxis for Viral and fungal - Keep Platelet count greater than 10, and hemoglobin greater than 7 - Transfuse today - CBC Check Thursday, Thursday, Thursday 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 - Failed induction chemotherapy - Continue on chemo daily - In the interim will continue supportive care Weakness - Progressive weakness and possibly some shortness of breath and confusion was the presenting complaint this time. - This could be due to his cytopenias. In addition to supportive transfusions, infection will need to be ruled out. - If cardiac etiology. Unfortunately, he is not a candidate for any aggressive cardiac intervention, including any type of anticoagulation or antiplatelet therapies due to his severe thrombocytopenia. Therefore his prognosis from the cardiac standpoint is very guarded. Abnormal and increased Liver Enzymes: - Medications versus other - GI Consult Placed - CT abdomen to assess - Review of medications - CMP in am. PLAN: - Venatoclax to Continue - Continue PT/OT as outpatient - Continue Supportive - Daily CBC, CMP, Mg, Phos, Uric Acid - Irradiated Blood Products Only - Ok to discharge today but will need to have CBC check Thursday, Thursday and Thursday
[2018-08-20] MEDS ORDERED: VANCOMYCIN 1,000 MG in SODIUM CHLORIDE 0.9% 250 ML IVPB SCH (21:00)
--- NOTE | 2018-08-20 22:37 | P.PN ---
Subjective Progress Note Date: 08/20/18 This is a 62-year-old male with significant past history of CLL initially diagnosed in December 2000 followed by diagnosis of diffuse large B- cell lymphoma in 2014 and again in 2016. He suffered from myocardial infarction during course of chemotherapy was stopped. Heart catheterization found complete RCA occlusion with collaterals and tight stenosis in the circumflex that was difficult to stent and not considered a candidate for surgery and was placed on medical management but eventually had successful stenting of the LAD and left circumflex. It was decided in September 2017 not to proceed with chemotherapy. In May of this year, patient presented with shortness of breath and pancytopenia was found to be in acute myeloleukemia and started chemotherapy on June 12 with 7+3 regime, supportive transfusions and prophylactic antibiotics. The patient's course was complicated as he appeared does not have any drug coverage and application to the drug companies have been done by the oncologist office. 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 Patient presented to [facility] emergency center on August 02 with complaints of weakness and intermittent confusion. Patient also states he was running fevers at home. He denies having any shortness of breath or chest pain. He states he has had a cough with possibly some sputum production. Patient presented with fever of 103.3, tachycardia and hypotension. White cell count is at 19.9, hemoglobin 8.7 and platelet count 15 and last at 19.7. Patient has had transfusion of 3 units packed RBCs and 2 units of platelets. The patient's course has been complicated as he developed atrial fibrillation currently on Cardizem drip and followed by cardiology. Stool for occult blood is positive and liver function tests have been elevated. Gastroenterology is also following the patient. He underwent a liver ultrasound this morning and report is pending. A CAT scan of the abdomen pelvis also ordered. Patient has been on vancomycin and meropenem was added by ID. Urine culture has been finalized with no growth and blood culture showing no growth at 72 hours. 08/05/2018 patient is definitely feeling better today. His fever has resolved. Some difficulty with swallowing is uncomfortable. But otherwise has no other acute complaints. 08/06/2018 patient transferred to oncology unit to begin his next course of chemotherapy for persistent AML 08/07/2018 patient is feeling somewhat better today. Temperature maximum 100.9. His shortness of breath is improving. He is relating since initiating his chemotherapy yesterday he does seem to be feeling better 08/09/2018 patient continues to feel better. Is afebrile today. Tolerated his chemotherapy relatively well. Relates since starting chemotherapy he is actually feeling added and he has in quite some time. His appetite has increased his been able to eat part of his meals today. 08/09/2018 patient is doing modestly well with his chemotherapy. Now just on oral. Appetite is improved. No other new acute changes. Continues to have p ancytopenia. No fever in the last 24 hours. 08/20/2018 patient is ready for discharge as per oncology. Afebrile for days but still has pancytopenia Objective - Vital Signs Vital signs: Vital Signs Temp 97.8 F 08/20/18 14:44 Pulse 110 H 08/20/18 16:33 Resp 20 08/20/18 16:33 BP 110/64 08/20/18 16:33 Pulse Ox 100 08/20/18 16:33 Intake & Output 08/20/18 08/20/18 08/21/18 06:59 18:59 06:59 Intake Total 1420 963 Output Total 560 Balance 860 963 Weight 62 kg 62 kg Intake: Intake, IV Titration 350 Amount Meropenem 1 gm In Sodium 100 Chloride 0.9% 100 ml @ 200 mls/hr IVPB Q8HR [facility] Rx#:[id number] Vancomycin 1,000 mg In 250 Sodium Chloride 0.9% 250 ml @ 125 mls/hr IVPB Q12HR [facility] Rx#:[id number] Oral 1420 Blood Product 613 Platelet Irr Pheresis 2 303 Acda Unit [id number] Rc Irr As1 Unit 310 [id number] Output: Urine 560 Other: Voiding Method Urinal # Voids 2 - Exam Gen: This is a thin 62-year-old male. He is resting in bed and sleeping and awakens easily to verbal stimuli. HEENT: Head is atraumatic, normocephalic. Pupils equal, round. Sclerae is anicteric. Oral mucous membranes are dry but without thrush but oral cavity remains uncomfortable. Patient is essentially edentulous with 1 lone tooth on top mid front. NECK: Supple. No JVD. No thyromegaly. LUNGS: Scattered rhonchi and bibasilar rales. Congestive moist cough noted. No intercostal retractions. HEART: Regular rate and rhythm. No murmur. Tachycardic. ABDOMEN: Soft. Bowel sounds are present. No masses. No tenderness. No right upper quadrant tenderness. EXTREMITIES: No pedal edema. No calf tenderness. Dorsalis pedis are +1 bilaterally. NEUROLOGICAL: Patient is awake, alert and oriented x3 - Labs CBC & Chem 7: 08/20/18 08:16 08/20/18 08:16 Labs: Abnormal Lab Results - Last 24 Hours (Table) 08/20/18 08/20/18 08/20/18 Range/Units 08:16 08:16 10:44 WBC 0.5 L* (3.8-10.6) k/uL RBC 2.39 L (4.30-5.90) m/uL Hgb 6.8 L* (13.0-17.5) gm/dL Hct 19.7 L* (39.0-53.0) % RDW 15.8 H (11.5-15.5) % Plt Count 9 L* (150-450) k/uL Glucose 105 H (74-99) mg/dL Calcium 7.9 L (8.4-10.2) mg/dL AST 60 H (17-59) U/L ALT 92 H (21-72) U/L Alkaline Phosphatase 277 H (38-126) U/L Total Protein 5.1 L (6.3-8.2) g/dL Albumin 2.4 L (3.5-5.0) g/dL Crossmatch See Detail Microbiology - Last 24 Hours (Table) 08/16/18 09:42 Blood Culture - Preliminary Blood No Growth after 96 hours 08/16/18 09:51 Blood Culture - Preliminary Blood No Growth after 96 hours Laboratory Results WBC 0.5 k/uL (3.8-10.6) L* 08/20/18 08:16 RBC 2.39 m/uL (4.30-5.90) L 08/20/18 08:16 Hgb 6.8 gm/dL (13.0-17.5) L* 08/20/18 08:16 Hct 19.7 % (39.0-53.0) L* 08/20/18 08:16 MCV 82.5 fL (80.0-100.0) 08/20/18 08:16 MCH 28.4 pg (25.0-35.0) 08/20/18 08:16 MCHC 34.4 g/dL (31.0-37.0) 08/20/18 08:16 RDW 15.8 % (11.5-15.5) H 08/20/18 08:16 Plt Count 9 k/uL (150-450) L* 08/20/18 08:16 Neutrophils % (Manual) 1 % 08/07/18 06:29 Lymphocytes % (Manual) 5 % 08/07/18 06:29 Monocytes % (Manual) 7 % 08/07/18 06:29 Blast Cells % 87 % H* 08/07/18 06:29 Neutrophils # NURSING EXECUTIVE 08/20/18 08:16 Neutrophils # (Manual) 0.05 k/uL (1.3-7.7) L* 08/07/18 06:29 Lymphocytes # (Manual) 0.25 k/uL (1.0-4.8) L 08/07/18 06:29 Monocytes # (Manual) 0.34 k/uL (0-1.0) 08/07/18 06:29 Blast Cells # (Man) 4.26 k/uL (0) H 08/07/18 06:29 Nucleated RBCs 0 /100 WBC (0-0) 08/07/18 06:29 Differential Comment 08/20/18 08:16 Manual Slide Review Performed 08/20/18 08:16 Hypochromasia Moderate 08/01/18 10:42 Poikilocytosis Slight 08/17/18 06:33 Poikilocytosis (manual Present 08/20/18 08:16 Anisocytosis Slight 08/16/18 06:31 Anisocytosis (manual) Present 08/18/18 06:32 Microcytosis Slight 08/04/18 05:52 Rouleaux Present 08/17/18 06:33 Fragmented RBCs Present 08/04/18 05:52 PT 13.1 sec (9.0-12.0) H 08/03/18 21:40 INR 1.3 (<1.2) H 08/03/18 21:40 APTT 31.8 sec (22.0-30.0) H 08/03/18 21:40 Sodium 137 mmol/L (137-145) 08/20/18 08:16 Potassium 3.7 mmol/L (3.5-5.1) 08/20/18 08:16 Chloride 107 mmol/L (98-107) 08/20/18 08:16 Carbon Dioxide 23 mmol/L (22-30) 08/20/18 08:16 Anion Gap 7 mmol/L 08/20/18 08:16 BUN 11 mg/dL (9-20) 08/20/18 08:16 Creatinine 0.67 mg/dL (0.66-1.25) 08/20/18 08:16 Est GFR (CKD-EPI)AfAm >90 (>60 ml/min/1.73 sqM) 08/20/18 08:16 Est GFR (CKD-EPI)NonAf >90 (>60 ml/min/1.73 sqM) 08/20/18 08:16 Glucose 105 mg/dL (74-99) H 08/20/18 08:16 Lactic Ac Sepsis Rflx Y 07/31/18 21:43 Plasma Lactic Acid Jaylen 1.1 mmol/L (0.7-2.0) 08/03/18 09:35 Uric Acid 1.5 mg/dL (3.5-8.5) L 08/14/18 06:41 Calcium 7.9 mg/dL (8.4-10.2) L 08/20/18 08:16 Phosphorus 1.3 mg/dL (2.5-4.5) L 08/14/18 06:41 Magnesium 2.0 mg/dL (1.6-2.3) 08/14/18 06:41 Total Bilirubin 1.3 mg/dL (0.2-1.3) 08/20/18 08:16 AST 60 U/L (17-59) H 08/20/18 08:16 ALT 92 U/L (21-72) H 08/20/18 08:16 Alkaline Phosphatase 277 U/L (38-126) H 08/20/18 08:16 Lactate Dehydrogenase 514 U/L (313-618) 08/14/18 06:41 Troponin I 0.124 ng/mL (0.000-0.034) H* 08/02/18 13:50 NT-Pro-B Natriuret Pep 04472 pg/mL 08/02/18 07:58 Total Protein 5.1 g/dL (6.3-8.2) L 08/20/18 08:16 Albumin 2.4 g/dL (3.5-5.0) L 08/20/18 08:16 Urine Color Yellow 08/16/18 11:00 Urine Appearance Clear (Clear) 08/16/18 11:00 Urine pH 6.0 (5.0-8.0) 08/16/18 11:00 Ur Specific [place] 1.016 (1.001-1.035) 08/16/18 11:00 Urine Protein 1+ (Negative) H 08/16/18 11:00 Urine Glucose (UA) Negative (Negative) 08/16/18 11:00 Urine Ketones Negative (Negative) 08/16/18 11:00 Urine Blood Small (Negative) H 08/16/18 11:00 Urine Nitrite Negative (Negative) 08/16/18 11:00 Urine Bilirubin Negative (Negative) 08/16/18 11:00 Urine Urobilinogen 2.0 mg/dL (<2.0) 08/16/18 11:00 Ur Leukocyte Esterase Negative (Negative) 08/16/18 11:00 Urine RBC <1 /hpf (0-5) 08/16/18 11:00 Urine WBC 1 /hpf (0-5) 08/16/18 11:00 Urine Mucus Rare /hpf (None) H 08/16/18 11:00 Stool Occult Blood Positive (Negative) 08/01/18 00:00 Vancomycin Trough 18.5 ug/mL 08/18/18 06:32 C. difficile (EIA) Intrp Negative (Negative) 08/13/18 00:30 Hepatitis A IgM Ab Non-Reactive (Non-Reactive) 08/04/18 05:52 Hep Bs Antigen Non-Reactive (Non-Reactive) 08/04/18 05:52 Hep B Core IgM Ab Non-Reactive (Non-Reactive) 08/04/18 05:52 Hep C IgG Ab Non-Reactive (Non-Reactive) 08/04/18 05:52 Blood Type A Negative 08/20/18 10:44 Blood Type Recheck No 08/20/18 10:44 Antibody Screen NEGATIVE 08/20/18 10:44 Crossmatch See Detail 08/20/18 10:44 Transfuse Platelets 08/20/18 08/20/18 10:44 Spec Expiration Date 08/23/2018 - 2344 08/20/18 10:44 Microbiology 08/16/18 09:42 Blood Blood Culture - Preliminary No Growth after 96 hours 08/16/18 09:51 Blood Blood Culture - Preliminary No Growth after 96 hours 08/16/18 11:00 Urine,Voided Urine Culture - Final 08/04/18 05:52 Blood Blood Culture - Final No Growth after 144 hours 08/03/18 09:35 Blood Blood Culture - Final No Growth after 144 hours 08/01/18 01:47 Blood Blood Culture - Final No Growth after 144 hours 08/01/18 00:10 Urine,Voided Urine Culture - Final Assessment and Plan (1) Acute myelogenous leukemia Narrative/Plan: 62-year-old male who has a history of AML who has not done well with his most recent course of chemotherapy. And hopefully will be able to start a new regimen to the near future. Comes in the hospital feeling ill with similar fever and elevation of his liver function tests. He does have evidence of some chronic cholecystitis without evidence of acute cholecystitis. Elevated AST and ALT potentially from current illness, recent medications most likely. However underlying infection of the biliary tract is not excluded at this time. Although his alkaline phosphatase is elevated the total bilirubin is normal. We'll expect the liver function tests will rapidly improve. In his fever improves with no evidence of bacteremia or other significant focus of infection, hopefully becomes a rapid candidate for chemotherapy for the treatment of his AML. Antibiotic therapy while cultures are process was initiated with meropenem and vancomycin given his history and concerns to biliary sepsis. 08/05/2018 patient still feels poorly. Slightly improved. Having no fever. Still difficulty ingesting food because the discomfort is oral cavity but no evidence of thrush or oral ulcerations. We'll continue current antibiotic therapy while cultures are processing. Fortunately negative so far. Likely the patient will start his chemotherapy tomorrow is a cultures are negative. It is likely that his current level of illness is related to his AML and increasing amounts of blasts in his peripheral smear. 08/06/2018 patient feels poorly. Is having some low-grade fever liken the basis of his current AML. To receive new course of chemotherapy starting today. Cultures are negative. Patient remains on the extensive antimicrobial coverage, I believe this will continue for now. Will re- culture if febrile. It continues to have fevers with transition antifungal therapy. 08/07/2018 patient is feeling better today. Temperature maximum 100.9. No other new symptoms. Has tolerated his first infusions of the new chemotherapy regimen well. Cultures are monitored and no positive cultures so far. Contin ue to monitor on current antibiotic therapy. We'll quickly enhance antifungal therapy if fevers recur. 08/09/2018 patient continues to feel somewhat better, tolerated meals today Chemotherapy has been well-tolerated. He has no fever, continue current antimicrobials. 08/09/2018 patient does feel better. He is eating considerably better. On oral chemotherapy at this time. However continues to have pancytopenia. Fever 48 hours ago but now temperature is 97.0 will work with hematology oncology is asked to the antibiotic plan at discharge.. Is doing well with current antibiotic therapy. Unclear what overall plan is as far as discharge. 08/20/2018 patient is now stable and ready for discharge to home. Oncology will be followed closely in the outpatient setting in transfusion is indicated. Antimicrobial therapy is provided with Levaquin and acyclovir. All cultures are negative at this time. Status: Acute Priority: High Code(s): C92.00 - ACUTE MYELOBLASTIC LEUKEMIA, NOT HAVING ACHIEVED REMISSION SNOMED Code(s): 17559466 (2) Elevated liver enzymes Status: Acute Code(s): R74.8 - ABNORMAL LEVELS OF OTHER SERUM ENZYMES SNOMED Code(s): 845812985
--- NOTE | 2018-08-23 12:34 | CDI ---
Documentation Clarification Form Date: 08/23/18 From: Quiana Myrick Phone: If questions call Estrellita Diaz @ [phone], Hours-8:30 am & 5 pm M- Shaggy Admit Date: 08/01/2018 12:40:00 AM Patient Name: Viraj Nevarez Visit Number: [id number] Discharge Date: 08/20/2018 7:28:00 PM ATTENTION: The Clinical Documentation Specialists (CDI) and [facility] Coding Staff appreciate your assistance in clarifying documentation. Please respond to the clarification below the line at the bottom and electronically sign. The CDI & [facility] Coding staff will review the response and follow-up if needed. Please note: Queries are made part of the Legal Health Record. If you have any questions, please contact the author of this message via ITS. Dr. Rubin Emery The patient presented with the following with fever, weakness, SOB, with AML not in remission. Sepsis was documented in PNs 08/02, 08/04 and several more PNs. WBC 12.6, Plt 19, Neutrophils .25, lactic reflex Y, plasma lactic acid 3.5 Blood cultures: no growth Vitals signs on admission: T-101.5, P-112, R-19, BP-102/61 Treatment: IV fluids, IV Vanco, IV Merrem added 08/04 In your professional opinion, please clarify if these findings signify one of the following conditions, whether the condition is POA, and cause, if known: Condition Sepsis ruled out SIRS, without underlying infectious process Sepsis Severe Sepsis Septic Shock Other, please specify Unable to determine Present on Admission Yes No Identify the (suspected) organism Link or clarify if there is associated (due to/with): Organ failure Shock Unable to determine, for eg fever could be due to AML MTDD
== END 2018-08-20 19:28 | disposition home or self-care (01) | DRG 835 ==
LOC: EC 19:50 → 4SSUR 08-01 00:40 → 3NMEDONC 08-01 12:32 → 3SCARD 08-02 21:36 → 3NMEDONC 08-06 17:12
PROVIDERS: ADMIT Hospitalist; ATTEND Hospitalist
PROC: 30233R1 Transfusion of Nonautologous Platelets into Peripheral Vein, Percutaneous Approach (ICD-10-PCS; principal; 2018-08-01)
PROC: 30233N1 Transfusion of Nonautologous Red Blood Cells into Peripheral Vein, Percutaneous Approach (ICD-10-PCS; 2018-08-01)
PROC: 3E04305 Introduction of Other Antineoplastic into Central Vein, Percutaneous Approach (ICD-10-PCS; 2018-08-06)
DX: C92.00 Acute myeloblastic leukemia, not having achieved remission (principal); R64 Cachexia; E87.1 Hypo-osmolality and hyponatremia; Z68.1 Body mass index [BMI] 19.9 or less, adult; D69.3 Immune thrombocytopenic purpura; E44.0 Moderate protein-calorie malnutrition; I47.2 Ventricular tachycardia; K80.10 Calculus of gallbladder with chronic cholecystitis without obstruction; I50.22 Chronic systolic (congestive) heart failure; K92.1 Melena; J98.11 Atelectasis; D59.9 Acquired hemolytic anemia, unspecified; D61.818 Other pancytopenia; E83.42 Hypomagnesemia; I48.0 Paroxysmal atrial fibrillation; K12.30 Oral mucositis (ulcerative), unspecified; R50.81 Fever presenting with conditions classified elsewhere; E87.6 Hypokalemia; I25.10 Atherosclerotic heart disease of native coronary artery without angina pectoris; I25.5 Ischemic cardiomyopathy; T45.1X5A Adverse effect of antineoplastic and immunosuppressive drugs, initial encounter; K06.8 Other specified disorders of gingiva and edentulous alveolar ridge; K82.8 Other specified diseases of gallbladder; F41.9 Anxiety disorder, unspecified; I25.2 Old myocardial infarction; R32 Unspecified urinary incontinence; R77.8 Other specified abnormalities of plasma proteins; Z79.899 Other long term (current) drug therapy; Z85.72 Personal history of non-Hodgkin lymphomas; Z87.891 Personal history of nicotine dependence; Z95.5 Presence of coronary angioplasty implant and graft; Z98.890 Other specified postprocedural states; Z87.01 Personal history of pneumonia (recurrent); Z81.1 Family history of alcohol abuse and dependence; Z82.41 Family history of sudden cardiac death; Z80.3 Family history of malignant neoplasm of breast
CPT/HCPCS: 36415; 36430; 71046; 71250; 74177; 76705; 80048; 80053; 80074; 80202; 81001; 82272; 83605; 83615; 83735; 83880; 84100; 84484; 84550; 85025; 85027; 85610; 85730; 86850; 86900; 86901; 86920; 87040; 87086; 87324; 93005; 94640; 96361; 96365; 96366; 96375; 96376; 99285

== ENCOUNTER 2018-08-30 11:52 | Inpatient (IN) | payer MEDICARE ==
--- NOTE | 2018-08-30 14:21 | ED ---
General Adult HPI - General Chief complaint: Weakness Stated complaint: fatigue Time Seen by Provider: 08/30/18 13:58 Source: patient, family, RN notes reviewed Mode of arrival: wheelchair Limitations: no limitations - History of Present Illness Initial comments: Patient is a pleasant [age]-year-old male presenting to the emergency department after being advised by his oncologist. 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 Patient was advised he would need blood and platelets. Blood work today showed hemoglobin of 6.7 and platelets of 12. Patient has been having nosebleeds and hemoptysis. Patient feels generally weak and fatigued. No confusion. No pain. Patient has had similar problems previously and did previously need blood transfusion. Last platelet transfusion was just a couple of days ago. - Related Data Home Medications Medication Instructions Recorded Confirmed Folic Acid 1 mg PO DAILY 02/18/17 08/30/18 Atorvastatin [Lipitor] 80 mg PO DAILY 06/02/18 08/30/18 Metoprolol Succinate (ER) [Toprol 25 mg PO DAILY 08/30/18 08/30/18 XL] Previous Rx's Medication Instructions Recorded ALPRAZolam [Xanax] 0.25 mg PO TID PRN #6 tab 08/20/18 Acetaminophen Tab [Tylenol] 500 mg PO Q4H PRN tab 08/20/18 Allopurinol [Zyloprim] 300 mg PO DAILY tab 08/20/18 Ascorbic Acid [Vitamin C] 500 mg PO DAILY tab 08/20/18 Ferrous Sulfate [Iron (65 MG 325 mg PO TID tab 08/20/18 Elemental)] Ipratropium-Albuterol Nebulize 3 ml INHALATION RT-QID PRN 08/20/18 [Duoneb 0.5 mg-3 mg/3 ml Soln] ampul.neb Lidocaine Viscous [Xylocaine 30 ml PO Q4HR PRN ml 08/20/18 Viscous 2%] Mag Hydrox/Al Hydrox/Simeth 30 ml PO Q4HR cup 08/20/18 [Maalox] Nystatin 100,000 Unit/ml Susp 3,000,000 unit PO Q4HR cup 08/20/18 [Mycostatin Oral Susp] Pantoprazole [Protonix] 40 mg PO AC-BRKFST tablet. 08/20/18 Potassium Chloride ER [K-Dur 20] 20 meq PO BID tab.er.prt 08/20/18 traMADol HCl [Ultram] 50 mg PO Q6HR PRN tab 08/20/18 Allergies Allergy/AdvReac Type Severity Reaction Status Date / Time No Known Allergies Allergy Verified 08/30/18 14:32 Review of Systems ROS Statement: Those systems with pertinent positive or pertinent negative responses have been documented in the HPI. ROS Other: All systems not noted in ROS Statement are negative. Constitutional: Denies: fever Eyes: Denies: eye pain ENT: Reports: epistaxis. Denies: ear pain Respiratory: Reports: hemoptysis Cardiovascular: Denies: chest pain Endocrine: Reports: fatigue Gastrointestinal: Denies: abdominal pain Genitourinary: Denies: dysuria Musculoskeletal: Denies: back pain Skin: Denies: rash Neurological: Denies: headache Past Medical History Past Medical History: Cancer, Myocardial Infarction ([place]), Pneumonia Additional Past Medical History / Comment(s): 2000 diagnosed with CLL treated with chemo successfully, 08/2014 R side back mass-diffuse large B cell lymphoma treated with chemo, 11/2016 recurrent R back mass-diffuse large B cell lymphoma with current chemo, pancytopenia, ITP, anemia, pneumonia with sepsis, 02/20/17 NSTEMI with heart cath-tx medically. Last Myocardial Infarction Date:: 02/20/17 History of Any Multi-Drug Resistant Organisms: None Reported Past Surgical History: Heart Catheterization, Heart Catheterization With Stent Additional Past Surgical History / Comment(s): 02/20/17 cardiac cath, 2001 [facility], R upper back mass-needle bxs, colonoscopy-normal, power port, 2019 [facility]. Past Anesthesia/Blood Transfusion Reactions: No Reported Reaction Additional Past Anesthesia/Blood Transfusion Reaction / Comment(s): Pt has received blood in the past without reaction. 02/20/17 pt had chest pain/SOB (NSTEMI) 1 day post transfusion. Date of Last Stent Placement:: 2017 Past Psychological History: No Psychological Hx Reported Smoking Status: Former smoker - Past Family History Father Additional Family Medical History / Comment(s): Father was an alcoholic. He committed suicide. Mother Family Medical History: Cancer Additional Family Medical History / Comment(s): Mother had Breast Cancer 25 yrs ago. She is 85yrs old. General Exam Limitations: no limitations General appearance: alert, cachectic Head exam: Present: atraumatic Eye exam: Present: normal appearance, PERRL ENT exam: Present: mucous membranes dry, other (Dried blood on tongue) Neck exam: Present: normal inspection Respiratory exam: Present: normal lung sounds bilaterally Cardiovascular Exam: Present: tachycardia GI/Abdominal exam: Present: soft. Absent: tenderness Extremities exam: Present: normal inspection Neurological exam: Present: alert. Absent: motor sensory deficit Psychiatric exam: Present: normal affect, normal mood Skin exam: Present: petechiae Course Vital Signs 08/30/18 08/30/18 12:32 14:48 Temperature 98.2 F Pulse Rate 93 112 H Respiratory 22 16 Rate Blood Pressure 65/46 93/63 O2 Sat by Pulse 97 96 Oximetry EKG Findings - EKG Comments: EKG Findings:: Sinus tachycardia 120. MT 134. QRS 110. QT 358. QTC 505. Right axis. Normal QRS. No acute ST change. Medical Decision Making - Medical Decision Making Patient and family were updated. Case was discussed with Dr. Hobson who will consult and recommends medical admission. He does agree with one unit of irradiated red blood cells and platelets. Case was also discussed in detail with Dr. Cancino, who will admit covering for hospital call. Patient and family do wish full code at this point. Critical Care Time Critical Care Time: Yes Total Critical Care Time: 31 Disposition Clinical Impression: Acute myelogenous leukemia, Bleeding, Weakness, Anemia, Thrombocytopenia Disposition: ADMITTED IP TO THIS HOSP Condition: Serious Is patient prescribed a controlled substance at d/c from ED?: No Referrals: None,Stated [Primary Care Provider] - 1-2 days Decision Time: 15:07
[2018-08-30 15:06] LABS: Calcium 8.2 mg/dL (8.4-10.2); Potassium 4.4 mmol/L (3.5-5.1); Total Bilirubin 1.9 mg/dL (0.2-1.3); Total Protein 6.2 g/dL (6.3-8.2)
--- NOTE | 2018-08-30 15:08 | XR ---
EXAMINATION TYPE: XR chest 2V DATE OF EXAM: 08/30/2018 COMPARISON: 08/16/2018 HISTORY: Weakness TECHNIQUE: Frontal and lateral views of the chest are obtained. FINDINGS: There is a new masslike opacity in the anterior right lower lobe in comparison to the rece nt prior. Cardia mediastinal silhouette is within normal limits. Left lung remains clear. Right-sided Mediport is unchanged. Minimal degenerative changes of the thoracic spine are seen. No sizable pneum othorax. IMPRESSION: New masslike consolidation of the right lower lobe given the short-term interval change is most compatible with unifocal pneumonia.
[2018-08-30] MEDS ORDERED: SODIUM CHLORIDE 0.9% 1,000 ML IV STA (15:09)
[2018-08-30] MEDS ORDERED: NALOXONE 0.4 MG/ML 1 ML VIAL IV PRN (15:09)
[2018-08-30 15:11] LABS: INR 1.3 (<1.2); Partial Thromboplastin Time 42.2 sec (22.0-30.0); Prothrombin Time 13.7 sec (9.0-12.0)
[2018-08-30 15:23] LABS: MCHC 33.5 g/dL (31.0-37.0); MCV 86.5 fL (80.0-100.0); Mean Platelet Volume 9.9; RBC 2.17 m/uL (4.30-5.90); RDW 15.4 % (11.5-15.5)
[2018-08-30 15:27] LABS: HCT 18.7 % (39.0-53.0); HGB 6.3 gm/dL (13.0-17.5); WBC 0.8 k/uL (3.8-10.6)
[2018-08-30 15:28] LABS: Platelet Count 8 k/uL (150-450)
[2018-08-30] MEDS: SODIUM CHLORIDE 0.9% 1,000 ML IV SCH (15:50)
[2018-08-30] MEDS ORDERED: LEVOFLOXACIN 750MG-D5W PMX 750 MG in DEXTROSE/WATER 1 150ML.BAG IVPB STA (18:11)
--- NOTE | 2018-08-30 19:07 | P.PN ---
Progress Note - Text Progress Note Date: 08/30/18 Bone Marrow Biopsy Scheduled 08/31/18 1200, made NPO after midnight
[2018-08-30] MEDS ORDERED: LIDOCAINE VISCOUS 2% 15 ML CUP MUCOUS MEM PRN (19:11)
[2018-08-30] MEDS ORDERED: ALPRAZolam 0.25 MG TAB PO PRN (19:11)
--- NOTE | 2018-08-30 19:17 | P.HPIM ---
History of Present Illness This is a pleasant 62 years old male with past medical history of acute myelocytic leukemia, on chemotherapy, generalized weakness and congestive heart failure with with ejection fraction of 35%. Nonsustained V. tach. Patient was recently discharged from the hospital about 10 days ago where he has prolonged hospital course with pancytopenia, episodic fever, mainly low-grade. And generalized weakness. Patient was sent to the hospital and emergency room, advised by his oncologist. pt presents because he is been feeling weak, with coughing and bloody colored phlegm, however he denies chest pain or dyspnea , no abd pain , no diarrhea , no change in mental status or dizziness, and no urinary complaints On admission his blood pressure was in the low size 65/46. And 93/63. Tachycardia of 110-112. Respiratory to what 16/m and is saturating 96% on room air. With no fever on admission Labs showing pancytopenia with WBC of 0.8, hemoglobin 6.3, platelets 8. INR 1.3. Creatinine 1.29, sodium 135, glucose 122, bilirubin 1.9 and liver enzymes slightly elevated 120 to 150s. EKG showing sinus tachycardia at 120 BPM with QTC 505. Chest x-ray showing new masslike consolidation of the right lower lobe, suspicious for pneumonia d/w staff , pt is going to receive one unit of blood transfusion Past Medical History Past Medical History: Cancer, Myocardial Infarction ([place]), Pneumonia Additional Past Medical History / Comment(s): 2000 diagnosed with CLL treated with chemo successfully, 08/2014 R side back mass-diffuse large B cell lymphoma treated with chemo, 11/2016 recurrent R back mass-diffuse large B cell lymphoma with current chemo, pancytopenia, ITP, anemia, pneumonia with sepsis, 02/20/17 NSTEMI with heart cath-tx medically. Last Myocardial Infarction Date:: 02/20/17 History of Any Multi-Drug Resistant Organisms: None Reported Past Surgical History: Heart Catheterization, Heart Catheterization With Stent Additional Past Surgical History / Comment(s): 02/20/17 cardiac cath, 2000 [facility], R upper back mass-needle bxs, colonoscopy-normal, power port, 2019 [facility]. Past Anesthesia/Blood Transfusion Reactions: No Reported Reaction Additional Past Anesthesia/Blood Transfusion Reaction / Comment(s): Pt has received blood in the past without reaction. 02/20/17 pt had chest pain/SOB (NSTEMI) 1 day post transfusion. Date of Last Stent Placement:: 2017 Past Psychological History: No Psychological Hx Reported Smoking Status: Former smoker - Past Family History Father Additional Family Medical History / Comment(s): Father was an alcoholic. He committed suicide. Mother Family Medical History: Cancer Additional Family Medical History / Comment(s): Mother had Breast Cancer 25 yrs ago. She is 85yrs old. Medications and Allergies Home Medications Medication Instructions Recorded Confirmed Type Folic Acid 1 mg PO DAILY 02/18/17 08/30/18 History Atorvastatin [Lipitor] 80 mg PO DAILY 06/02/18 08/30/18 History ALPRAZolam [Xanax] 0.25 mg PO TID PRN #6 tab 08/20/18 08/30/18 Rx Acetaminophen Tab [Tylenol] 500 mg PO Q4H PRN tab 08/20/18 08/30/18 Rx Allopurinol [Zyloprim] 300 mg PO DAILY tab 08/20/18 08/30/18 Rx Ascorbic Acid [Vitamin C] 500 mg PO DAILY tab 08/20/18 08/30/18 Rx Ferrous Sulfate [Iron (65 MG 325 mg PO TID tab 08/20/18 08/30/18 Rx Elemental)] Ipratropium-Albuterol Nebulize 3 ml INHALATION RT-QID PRN 08/20/18 08/30/18 Rx [Duoneb 0.5 mg-3 mg/3 ml Soln] ampul.neb Lidocaine Viscous [Xylocaine 30 ml PO Q4HR PRN ml 08/20/18 08/30/18 Rx Viscous 2%] Mag Hydrox/Al Hydrox/Simeth 30 ml PO Q4HR cup 08/20/18 08/30/18 Rx [Maalox] Nystatin 100,000 Unit/ml Susp 3,000,000 unit PO Q4HR cup 08/20/18 08/30/18 Rx [Mycostatin Oral Susp] Pantoprazole [Protonix] 40 mg PO AC-BRKFST tablet. 08/20/18 08/30/18 Rx Potassium Chloride ER [K-Dur 20] 20 meq PO BID tab.er.prt 08/20/18 08/30/18 Rx traMADol HCl [Ultram] 50 mg PO Q6HR PRN tab 05/31/19 06/10/19 Rx Metoprolol Succinate (ER) [Toprol 25 mg PO DAILY 08/30/18 08/30/18 History XL] Allergies Allergy/AdvReac Type Severity Reaction Status Date / Time No Known Allergies Allergy Verified 08/30/18 14:32 Physical Exam Vitals: Vital Signs Temp Pulse Resp BP Pulse Ox 08/30/18 15:00 112 H 14 93/63 96 08/30/18 14:48 112 H 16 93/63 96 08/30/18 12:32 98.2 F 93 22 65/46 97 Intake and Output 08/30/18 08/30/18 08/30/18 06:59 14:59 22:59 Other: Weight 60.328 kg -GENERAL: The patient is alert and oriented x3, not in any acute distress. he is cachectic HEENT: Pupils are round and equally reacting to light. EOMI. No scleral icterus. No conjunctival pallor. Normocephalic, atraumatic. No pharyngeal erythema. No thyromegaly. CARDIOVASCULAR: S1 and S2 present. No murmurs, rubs, or gallops. PULMONARY: Chest is clear to auscultation, no wheezing or crackles. ABDOMEN: Soft, nontender, nondistended, normoactive bowel sounds. No palpable organomegaly. MUSCULOSKELETAL: No joint swelling or deformity. EXTREMITIES: No cyanosis, clubbing, or pedal edema. NEUROLOGICAL: Gross neurological examination did not reveal any focal deficits. SKIN: No rashes. Results CBC & Chem 7: 08/30/18 14:45 08/30/18 14:45 Labs: Abnormal Lab Results - Last 24 Hours (Table) 08/30/18 08/30/18 08/30/18 Range/Units 14:45 14:45 14:45 WBC 0.8 L* (3.8-10.6) k/uL RBC 2.17 L (4.30-5.90) m/uL Hgb 6.3 L* (13.0-17.5) gm/dL Hct 18.7 L* (39.0-53.0) % Plt Count 8 L* (150-450) k/uL PT (9.0-12.0) sec INR (<1.2) APTT (22.0-30.0) sec Sodium 135 L (137-145) mmol/L Carbon Dioxide 20 L (22-30) mmol/L BUN 21 H (9-20) mg/dL Creatinine 1.29 H (0.66-1.25) mg/dL Glucose 122 H (74-99) mg/dL Calcium 8.2 L (8.4-10.2) mg/dL Total Bilirubin 1.9 H (0.2-1.3) mg/dL AST 153 H (17-59) U/L ALT 120 H (21-72) U/L Alkaline Phosphatase 442 H (38-126) U/L Total Protein 6.2 L (6.3-8.2) g/dL Albumin 3.0 L (3.5-5.0) g/dL Crossmatch See Detail 08/30/18 Range/Units 14:45 WBC (3.8-10.6) k/uL RBC (4.30-5.90) m/uL Hgb (13.0-17.5) gm/dL Hct (39.0-53.0) % Plt Count (150-450) k/uL PT 13.7 H (9.0-12.0) sec INR 1.3 H (<1.2) APTT 42.2 H (22.0-30.0) sec Sodium (137-145) mmol/L Carbon Dioxide (22-30) mmol/L BUN (9-20) mg/dL Creatinine (0.66-1.25) mg/dL Glucose (74-99) mg/dL Calcium (8.4-10.2) mg/dL Total Bilirubin (0.2-1.3) mg/dL AST (17-59) U/L ALT (21-72) U/L Alkaline Phosphatase (38-126) U/L Total Protein (6.3-8.2) g/dL Albumin (3.5-5.0) g/dL Crossmatch Assessment and Plan Assessment: Generalized weakness Hypotension and tachycardia Severe anemia Acute myelogenous leukemia, on oral chemotherapy Pancytopenia, secondary to above Fever, with neutropenia, on broad spectum antibiotic. Possible pneumonia, hospital-acquired, on chest x-ray from 08/30/2018. Elevated liver function tests, improving gradually Generalized weakness. Improving history of Congestive heart failure - chronic systolic with ejection fraction of 35%-not in exacerbation recent Sustained V. tach - possibily due to hypomagnesemia, Heart rate is stable currently Plan: This is a pleasant 62 years old male presents with weakness, hypertension, related to his AML disease, pancytopenia and possible pneumonia versus lung metastases. We'll call oncology and infectious disease consult. continue with antibioitic , Transfuse blood as needed to keep hemoglobin more than 7. Continue on bleeding precautions for his thrombocytopenia and no heparin for DVT prophylaxis. 50 monitor the patient closely.Labs and medication were reviewed.. Continue same treatment. Continue with symptomatic treatment. Resume home medication. Monitor lytes and vitals. DVT and GI prophylaxis. Further recommendations of the clinical course of the patient DVT prophylaxis: No heparin in view of thrombocytopenia GI Prophylaxis: Ppi PT/OT: Pending Prognosis is guarded
[2018-08-30] MEDS ORDERED: MAG HYDROX/AL HYDROX/SIMETH 30 ML CUP PO PRN (20:00)
[2018-08-30] MEDS: FERROUS SULFATE 325 MG TAB PO SCH (20:36)
[2018-08-30] MEDS: ACYCLOVIR 200 MG CAP PO SCH (20:36)
[2018-08-30] MEDS: POTASSIUM CHLORIDE ER 20 MEQ TAB.ER PO SCH (20:36)
[2018-08-30] MEDS ORDERED: SODIUM CHLORIDE 0.9% 1,000 ML IV ONE (22:12)
[2018-08-30 22:41] LABS: HCT 20.3 % (39.0-53.0); MCH 29.7 pg (25.0-35.0); MCHC 34.1 g/dL (31.0-37.0); MCV 87.1 fL (80.0-100.0); Mean Platelet Volume 6.6; RBC 2.33 m/uL (4.30-5.90); RDW 15.2 % (11.5-15.5)
[2018-08-30 22:44] LABS: HGB 6.9 gm/dL (13.0-17.5); Platelet Count 7 k/uL (150-450); WBC 0.5 k/uL (3.8-10.6)
[2018-08-31] MEDS: SODIUM CHLORIDE 0.9% 1,000 ML IV SCH ×3 (00:13→23:54)
[2018-08-31] MEDS: MEROPENEM 1 GM in SODIUM CHLORIDE 0.9% 100 ML IVPB SCH ×3 (00:13→23:52)
[2018-08-31 04:19] LABS: Appearance,Urine Cloudy (Clear); Bilirubin,Urine Negative (Negative); Blood,Urine Small (Negative); Color,Urine Yellow; Glucose,Urine (UA) Negative (Negative); Granular Casts,Urine 311 /lpf (0); Hyaline Casts,Urine 7 /lpf (0-2); Ketones,Urine Negative (Negative); Leukocyte Esterase,Urine Negative (Negative); Mucus,Urine Occasional /hpf; Nitrite,Urine Negative (Negative); PH, Urine 5.5 (5.0-8.0); Protein,Urine 2+ (Negative); RBC,Urine 3 /hpf (0-5); Specific Gravity,Urine 1.022 (1.001-1.035); Squamous Epithelial Cell,Urine <1 /hpf (0-4); WBC,Urine 5 /hpf (0-5)
[2018-08-31] MEDS: ACETAMINOPHEN TAB 500 MG TAB PO PRN (04:19)
[2018-08-31 07:32] LABS: INR 1.4 (<1.2); Partial Thromboplastin Time 36.3 sec (22.0-30.0); Prothrombin Time 13.8 sec (9.0-12.0)
[2018-08-31 07:35] LABS: HCT 21.7 % (39.0-53.0); HGB 7.3 gm/dL (13.0-17.5); MCH 29.2 pg (25.0-35.0); MCHC 33.7 g/dL (31.0-37.0); MCV 86.7 fL (80.0-100.0); Mean Platelet Volume 7.7
[2018-08-31 08:02] LABS: ALT 74 U/L (21-72); AST 63 U/L (17-59); African American GFR (CKD) >90 (>60 ml/min/1.73 sqM); Albumin 2.2 g/dL (3.5-5.0); Alkaline Phosphatase 348 U/L (38-126); Anion Gap 8 mmol/L; Blood Urea Nitrogen 14 mg/dL (9-20); Calcium 7.2 mg/dL (8.4-10.2); Carbon Dioxide 20 mmol/L (22-30); Chloride 107 mmol/L (98-107); Glucose 110 mg/dL (74-99); LDH 393 U/L (313-618); Magnesium 1.9 mg/dL (1.6-2.3); Phosphorus 2.1 mg/dL (2.5-4.5); Potassium 3.5 mmol/L (3.5-5.1); Sodium 135 mmol/L (137-145); Total Protein 4.6 g/dL (6.3-8.2); Uric Acid 2.6 mg/dL (3.5-8.5)
[2018-08-31 08:03] LABS: WBC 0.5 k/uL (3.8-10.6)
[2018-08-31 08:04] LABS: Platelet Count 18 k/uL (150-450)
[2018-08-31] MEDS: PANTOPRAZOLE 40 MG/10 ML VIAL IV SCH (08:44)
[2018-08-31] MEDS: POTASSIUM CHLORIDE ER 20 MEQ TAB.ER PO SCH ×3 (08:44→22:23)
[2018-08-31] MEDS: ALLOPURINOL 300 MG TAB PO SCH (08:44)
[2018-08-31] MEDS: FOLIC ACID 1 MG TAB PO SCH ×2 (08:44→09:47)
[2018-08-31] MEDS: FERROUS SULFATE 325 MG TAB PO SCH ×4 (08:44→22:23)
[2018-08-31] MEDS: ATORVASTATIN 80 MG TAB PO SCH (08:44)
[2018-08-31] MEDS: ACYCLOVIR 200 MG CAP PO SCH ×2 (08:44→22:23)
[2018-08-31 11:09] LABS: Poikilocytosis (M) Present
[2018-08-31] MEDS ORDERED: PROPOFOL 10 MG/ML 20 ML VIAL IV ONE (12:33)
[2018-08-31] MEDS ORDERED: MIDAZOLAM 2 MG/2 ML VIAL ONE (12:33)
[2018-08-31] MEDS ORDERED: fentaNYL (PF) 50 MCG/ML 2 ML AMP ONE (12:33)
[2018-08-31] MEDS ORDERED: IV FLUID CONTINUATION 900 ML IV ONE (12:36)
--- NOTE | 2018-08-31 13:08 | P.PCN ---
Date of Procedure: 08/31/18 Preoperative Diagnosis: Acute myeloid leukemia, on salvage chemotherapy. Postoperative Diagnosis: Same Procedure(s) Performed: Bone marrow aspiration biopsy Anesthesia: MAC Surgeon: Jeffry Andrade Licensed Massage Practitioner #1: Stated None Pathology: other Condition: stable Disposition: floor Indications for Procedure: Acute myeloid leukemia, failed initial induction. On salvage chemotherapy. Procedure being done to assess response Operative Findings: Adequate samples Description of Procedure: The procedure was explained in detail to the patient and his family in the outpatient setting. He got admitted yesterday for pancytopenia and fever and therefore the procedure was done inpatient. Informed consent was obtained on the floor. He presented to the outpatient endoscopy suite and was placed in left lateral decubitus position. The area over both posterior iliac crest was cleaned and prepped with chlorhexidine and sterile draping. Sedation was then initiated. Local anesthesia was administered with lidocaine to the left posterior iliac crest. A Jamshidi needle was then inserted and bone marrow aspirate and biopsy obtained. The aspirate was obtained quite slowly and one of the samples was noted. Therefore a second pass was made with additional samples obtained. Blood loss was minimal and recovery from sedation was satisfactory. He appeared to have tolerated the procedure well without any obvious immediate competitions
[2018-08-31 14:52] VITALS: BMI 18.0
--- NOTE | 2018-08-31 14:54 | P.PN ---
Subjective This is a pleasant 62 years old male with past medical history of acute myelocytic leukemia, on chemotherapy, generalized weakness and congestive heart failure with with ejection fraction of 35%. Nonsustained V. tach. Patient was recently discharged from the hospital about 10 days ago where he has prolonged hospital course with pancytopenia, episodic fever, mainly low-grade. And generalized weakness. Patient was sent to the hospital and emergency room, advised by his oncologist. pt presents because he is been feeling weak, with coughing and bloody colored phlegm, however he denies chest pain or dyspnea , no abd pain , no diarrhea , no change in mental status or dizziness, and no urinary complaints On admission his blood pressure was in the low size 65/46. And 93/63. Tachycardia of 110-112. Respiratory to what 16/m and is saturating 96% on room air. With no fever on admission Labs showing pancytopenia with WBC of 0.8, hemoglobin 6.3, platelets 8. INR 1.3. Creatinine 1.29, sodium 135, glucose 122, bilirubin 1.9 and liver enzymes slightly elevated 120 to 150s. EKG showing sinus tachycardia at 120 BPM with QTC 505. Chest x-ray showing new masslike consolidation of the right lower lobe, suspicious for pneumonia d/w staff , pt is going to receive one unit of blood transfusion 08/31/2018 Patient today is awake and oriented, clinically looks similar to yesterday however his patellar has improved significantly. Patient was hypotensive overnight and needed 1 L of normal saline bolus. His blood pressure improved today and was on 2/58 and 107/65. Patient is running fever at 101.5 today. Risks of vitals are stable and he saturated 100% on room air. Patient still have some coughing with blood colored sputum. Labs still showing pancytopenia with improvement of hemoglobin up to 7.3. However WBC 0.5 and platelet 18. INR 1.4. Creatinine is within normal limits. Serum bilirubin and liver enzymes are mildly elevated but stable. Urinalysis is not suspicious of infection. Patient currently on meropenem, acyclovir and normal saline at 100 mL per hour CONSTITUTIONAL: No fever, no malaise, no fatigue. HEENT: No recent visual problems or hearing problems. Denied any sore throat. CARDIOVASCULAR: No orthopnea, PND, no palpitations, no syncope. GASTROINTESTINAL: No diarrhea, no nausea, no vomiting, no abdominal pain. Normoactive bowel sounds. NEUROLOGICAL: No headaches, no weakness, no numbness. HEMATOLOGICAL: Denies any bleeding or petechiae. GENITOURINARY: Denies any burning micturition, frequency, or urgency. MUSCULOSKELETAL/RHEUMATOLOGICAL: Denies any joint pain, swelling, or any muscle pain. ENDOCRINE: Denies any polyuria or polydipsia. Medication: Tylenol 500 mg, acyclovir 400 mg, MiraLAX 30 mL, albuterol 0.5 mg, allopurinol 300 mg, Xanax 0.25 mg, Lipitor 80 mg, ferrous sulfate 325 mg, folic acid 1 mg, lidocaine HCL 30 mm, meropenem 1 g, Protonix 40 mg, sodium chloride at 100 mL per hour, Ultram 50 mg, potassium chloride 20 mEq. Objective - Vital Signs Vital signs: Vital Signs Temp 97.7 F 08/31/18 11:22 Pulse 106 H 08/31/18 11:22 Resp 16 08/31/18 11:22 BP 107/65 08/31/18 11:22 Pulse Ox 100 08/31/18 11:22 Intake & Output 08/30/18 08/31/18 08/31/18 18:59 06:59 18:59 Intake Total 310 3691 1000 Output Total 500 200 Balance 310 3191 800 Weight 60.328 kg Intake: IV 200 Intake, IV Titration 2349 800 Amount Levofloxacin 750Mg-D5w 150 Pmx 750 mg In Dextrose/ Water 1 150ml.bag @ 100 mls/hr IVPB ONCE STA Rx#: [id number] Meropenem 1 gm In Sodium 100 Chloride 0.9% 100 ml @ 200 mls/hr IVPB Q12H TAMI Rx#:[id number] Sodium Chloride 0.9% 1, 800 800 000 ml @ 100 mls/hr IV . Q10H TAMI Rx#:[id number] Sodium Chloride 0.9% 1, 300 000 ml @ 75 mls/hr IV . [id number] STA Rx#:[id number] Sodium Chloride 0.9% 1, 999 000 ml @ 999 mls/hr IV . Q1H1M ONE Rx#:[id number] Oral 420 Blood Product 310 922 Platelet Irr Pheresis 2 302 Acda Unit [id number] Rc Irr As1 Unit 310 [id number] Rc Irr As1 Unit 310 [id number] Output: Urine 500 200 Other: # Voids 1 # Bowel Movements 0 - Exam -GENERAL: The patient is alert and oriented x3, not in any acute distress. he is cachectic HEENT: Pupils are round and equally reacting to light. EOMI. No scleral icterus. No conjunctival pallor. Normocephalic, atraumatic. No pharyngeal erythema. No thyromegaly. CARDIOVASCULAR: S1 and S2 present. No murmurs, rubs, or gallops. PULMONARY: Chest is clear to auscultation, no wheezing or crackles. ABDOMEN: Soft, nontender, nondistended, normoactive bowel sounds. No palpable organomegaly. MUSCULOSKELETAL: No joint swelling or deformity. EXTREMITIES: No cyanosis, clubbing, or pedal edema. NEUROLOGICAL: Gross neurological examination did not reveal any focal deficits. SKIN: No rashes. - Labs CBC & Chem 7: 08/31/18 06:33 08/31/18 06:33 Labs: Abnormal Lab Results - Last 24 Hours (Table) 08/30/18 08/30/18 08/30/18 Range/Units 14:45 14:45 14:45 WBC 0.8 L* (3.8-10.6) k/uL RBC 2.17 L (4.30-5.90) m/uL Hgb 6.3 L* (13.0-17.5) gm/dL Hct 18.7 L* (39.0-53.0) % Plt Count 8 L* (150-450) k/uL PT (9.0-12.0) sec INR (<1.2) APTT (22.0-30.0) sec Sodium 135 L (137-145) mmol/L Carbon Dioxide 20 L (22-30) mmol/L BUN 21 H (9-20) mg/dL Creatinine 1.29 H (0.66-1.25) mg/dL Glucose 122 H (74-99) mg/dL Uric Acid (3.5-8.5) mg/dL Calcium 8.2 L (8.4-10.2) mg/dL Phosphorus (2.5-4.5) mg/dL Total Bilirubin 1.9 H (0.2-1.3) mg/dL AST 153 H (17-59) U/L ALT 120 H (21-72) U/L Alkaline Phosphatase 442 H (38-126) U/L Total Protein 6.2 L (6.3-8.2) g/dL Albumin 3.0 L (3.5-5.0) g/dL Urine Protein (Negative) Urine Blood (Negative) Hyaline Casts (0-2) /lpf Urine Mucus (None) /hpf Crossmatch See Detail 08/30/18 08/30/18 08/30/18 Range/Units 14:45 22:24 23:15 WBC 0.5 L* (3.8-10.6) k/uL RBC 2.33 L (4.30-5.90) m/uL Hgb 6.9 L* (13.0-17.5) gm/dL Hct 20.3 L (39.0-53.0) % Plt Count 7 L* (150-450) k/uL PT 13.7 H (9.0-12.0) sec INR 1.3 H (<1.2) APTT 42.2 H (22.0-30.0) sec Sodium (137-145) mmol/L Carbon Dioxide (22-30) mmol/L BUN (9-20) mg/dL Creatinine (0.66-1.25) mg/dL Glucose (74-99) mg/dL Uric Acid (3.5-8.5) mg/dL Calcium (8.4-10.2) mg/dL Phosphorus (2.5-4.5) mg/dL Total Bilirubin (0.2-1.3) mg/dL AST (17-59) U/L ALT (21-72) U/L Alkaline Phosphatase (38-126) U/L Total Protein (6.3-8.2) g/dL Albumin (3.5-5.0) g/dL Urine Protein 2+ H (Negative) Urine Blood Small H (Negative) Hyaline Casts 7 H (0-2) /lpf Urine Mucus Occasional H (None) /hpf Crossmatch 08/31/18 08/31/18 08/31/18 Range/Units 06:33 06:33 06:33 WBC 0.5 L* (3.8-10.6) k/uL RBC 2.50 L (4.30-5.90) m/uL Hgb 7.3 L (13.0-17.5) gm/dL Hct 21.7 L (39.0-53.0) % Plt Count 18 L* D (150-450) k/uL PT 13.8 H (9.0-12.0) sec INR 1.4 H (<1.2) APTT 36.3 H (22.0-30.0) sec Sodium 135 L (137-145) mmol/L Carbon Dioxide 20 L (22-30) mmol/L BUN (9-20) mg/dL Creatinine (0.66-1.25) mg/dL Glucose 110 H (74-99) mg/dL Uric Acid 2.6 L (3.5-8.5) mg/dL Calcium 7.2 L (8.4-10.2) mg/dL Phosphorus 2.1 L (2.5-4.5) mg/dL Total Bilirubin 2.0 H (0.2-1.3) mg/dL AST 63 H (17-59) U/L ALT 74 H (21-72) U/L Alkaline Phosphatase 348 H (38-126) U/L Total Protein 4.6 L (6.3-8.2) g/dL Albumin 2.2 L (3.5-5.0) g/dL Urine Protein (Negative) Urine Blood (Negative) Hyaline Casts (0-2) /lpf Urine Mucus (None) /hpf Crossmatch Assessment and Plan Assessment: Generalized weakness Hypotension and tachycardia Severe anemia Acute myelogenous leukemia, on oral chemotherapy Pancytopenia, secondary to above Fever, with neutropenia, on broad spectum antibiotic. Possible pneumonia, hospital-acquired, on chest x-ray from 08/30/2018. Elevated liver function tests, improving gradually Generalized weakness. Improving history of Congestive heart failure - chronic systolic with ejection fraction of 35%-not in exacerbation recent Sustained V. tach - possibily due to hypomagnesemia, Heart rate is stable currently Plan: This is a pleasant 62 years old male presents with weakness, hypertension, related to his AML disease, pancytopenia and possible pneumonia versus lung metastases. We'll call oncology and infectious disease consult. continue with antibioitic , Transfuse blood as needed to keep hemoglobin more than 7. Continue on bleeding precautions for his thrombocytopenia and no heparin for DVT prophylaxis. 50 monitor the patient closely.Labs and medication were reviewed.. Continue same treatment. Continue with symptomatic treatment. Resume home m edication. Monitor lytes and vitals. DVT and GI prophylaxis. Further recommendations of the clinical course of the patient DVT prophylaxis: No heparin in view of thrombocytopenia GI Prophylaxis: Ppi PT/OT: Pending Prognosis is guarded
--- NOTE | 2018-08-31 14:56 | CDI ---
Documentation Clarification Form Date: 08/31/2018 CDS: Merary John RN, CCDS Admit Date: 08/30/2018 Patient Name: Viraj Nevarez ATTENTION: The Clinical Documentation Specialists (CDI) and [facility] Coding Staff appreciate your assistance in clarifying documentation. Please respond to the clarification below the line at the bottom and electronically sign. The CDI & [facility] Coding staff will review the response and follow-up if needed. Please note: Queries are made part of the Legal Health Record. If you have any questions, please contact the author of this message via ITS. Dr. Rubin Emery MD Possible Hospital Acquired Pneumonia was documented in your H & P.(insert date/location of documentation) History/Risk Factors: 62 year old male presents to the ED with Weakness sent in by Oncologist for blood and platelets. Medical History AML, on oral chemotherapy. Clinical Indicators: Please delete the indicators that are not applicable to this query. Vital signs: 65/46 93 98.2 22 97% ra Wbc 0.8 Neutrophils 1525 X-ray: New mass like opacity in the anterior right lower lobe in comparison to the recent prior Lung/Breathing assessment Treatment: Please delete the treatments that are not applicable to this query. Antibiotics: Meropenem Breathing Tx: :Duoneb In order to capture the severity of condition, please clarify if the condition signifies and you are treating for: Please remove diagnoses that are not applicable)  Gram Negative Pneumonia Other bacteria Pneumonia (please specify) Other, please specify Unable to determine possible Gram negative pneumonia MTDD
--- NOTE | 2018-08-31 15:07 | CDI ---
Documentation Clarification Form Date: 08/31/2018 CDS: Merary John RN, CCDS Admit Date: 08/30/2018 Patient Name: Viraj Nevarez ATTENTION: The Clinical Documentation Specialists (CDI) and [facility] Coding Staff appreciate your assistance in clarifying documentation. Please respond to the clarification below the line at the bottom and electronically sign. The CDI & [facility] Coding staff will review the response and follow-up if needed. Please note: Queries are made part of the Legal Health Record. If you have any questions, please contact the author of this message via ITS. Dr. Rubin Emery MD The patient has been admitted with a diagnosis of Acute myelogenous Leukemia. Pancytopenia has been documented in the H & P. History/Risk Factors: 62 year old male presents to the ED with Weakness sent in by Oncologist for blood and platelets. Medical History AML, on oral chemotherapy. Clinical Indicators: Please delete the indicators that are not applicable to this query. Vital signs: 65/46 93 98.2 22 97% ra Labs Wbc 0.8 Neutrophils 1525 Hgb 6.3, Rbc 2.17, Platlets 8.0; Treatment 2 units PRBC, 1unit Platelets Consult: Oncology In your professional opinion, can you please clarify if these findings signify one of the following conditions? * Pancytopenia due to Acute Myelogenous Leukemia * Pancytopenia due to Chemotherapy * Pancytopenia due to other, please specify * Unable to determine (Last Revision: December 2016) due to both Acute Myelogenous Leukemia and Chemotherapy MTDD
--- NOTE | 2018-08-31 18:20 | P.CONS ---
History of Present Illness - Reason for Consult Consult date: 08/31/18 Pancyopenia, Febrile neutropenia, AML on chemo - History of Present Illness The patient is a 62-year-old white male, with a obligated past medical history, well known to our service. His malignancy history is as follows: History of CLL/well-differentiated lymphoma, diagnosed December 2000. Treated with 4 cycles of fludarabine, subsequently developed hemolytic anemia and ITP, which responded well to steroid treatment, he did not require treatment for many years. Was seen in consult at [facility] 06/04, admitted for fever and pancytopenia. Workup, including bone marrow, was negative for malignancy. Had infiltrates on CT chest, improved with abx. He was supposed to f/u in 06/04 but did not do so. He noted a small nodule on the right mid back, this did not improve with time, in fact increased in size and developed discoloration. Dr. Burnette biopsy that on 09/20/14, path positive for Diffuse Large B cell Lymphoma. Late 09/04 pt also noted a mass developing in his right armpit, staging PET and bone marrow did not reveal any marrow involvement. He did appear to have at least stage III disease, with a retrocrural node involved, questionable lung parenchymal involvement. He was started on R-CHOP completed 6 cycles 02/04. He developed a new lump in his right mid back around 11/06, core biopsy on 12/17/16 revealed a diffuse large B-cell non-Hodgkin's lymphoma, staging PET revealed uptake in the tonsils, neck nodes and presternal soft tissue in addition to the skin. He started salvage R-ICE on 01/07/17, after 2 cycles he had an excellent response. He started cycle 3 on 02/19/17, unfortunately after day 1 he suffered a PA and chemo was stopped. Cardiac catheterization showed complete RCA occlusion with collaterals, and a tight stenosis in the origin of the circumflex that was technically difficult to stent. He was not felt to be a candidate for surgery at this point, based on extent of disease, plan was medical management. He resumed chemo on 03/17/17, with dose reduction. He completed 4 cycles 04/17/17. He was referred to [facility] BMT, recommendation was for cardiology intervention. He had PTCA was successful stenting of the LAD and left circumflex on 08/31/2017. He was referred back to BMT, was seen 10/07, decided not to proceed. He then presented in 06/08, with progressive shortness of breath and marked pancytopenia.. Bone marrow revealed acute myeloid leukemia. He underwent induction with the 7+3 regimen, completing that on 06/12/18. He was then treated supportively with monitoring and therefore transfusion, as well as prophylactic antibiotics. His counts did not show recovery as expected, due to which bone marrow was repeated on 07/09/18, unfortunately showing significant persistent AML. Due to his poor performance status, as well as cardiac history, the patient is not a candidate for several standard options. It was decided to treat him with salvage regimen consisting of Vidaza and Venetoclax. The patient was admitted on , for persistent cytopenias, and progressive weakness. During that admission he developed rapidly increasing peripheral white blood cell count consisting mostly of blasts indicating progression at an increased rate. He was therefore started on the salvage regimen with day 1 of Vidaza and Venetoclax administered on 08/06/18 The patient had a good response with rapid cytoreduction with improvement in symptoms. After completion of Vidaza he continued the PO Venetoclax. He had a prolonged hospitalization due to development of febrile neutropenia. He was discharged on 08/20/18. He continued outpatient follow-up with CBC monitoring and transfusions as needed. He was sent in to the emergency room, for blood and platelet transfusions. In addition all the past 2 days he had been having frequent nosebleeds. Platelet count was less than 10,000. The patient was feeling quite weak and tired, with chest x-ray showing possible right-sided pneumonia. Case was discussed with the ER physician and the patient admitted Posttransfusion her developed fever with maximum temperature 101 +. IV antibiotics were initiated. Consult was placed for further evaluation and recommendations Review of Systems Constitutional: Reports poor appetite, Reports weakness, Reports weight loss Eyes: denies blurred vision, denies pain Ears: deny: decreased hearing, ear discharge, earache, tinnitus Ears, nose, mouth and throat: Reports bleeding gums Cardiovascular: Reports dyspnea on exertion Respiratory: Reports dyspnea Gastrointestinal: Denies abdominal pain, Denies diarrhea, Denies nausea, Denies vomiting Genitourinary: Reports as per HPI Musculoskeletal: Reports muscle weakness Integumentary: Reports unusual bruising Neurological: Denies numbness, Denies weakness Psychiatric: Denies anxiety, Denies depression Endocrine: Denies fatigue, Denies weight change Hematologic/Lymphatic: Reports as per HPI, Reports easy bleeding Past Medical History Past Medical History: Cancer, Myocardial Infarction (PA), Pneumonia Additional Past Medical History / Comment(s): 2000 diagnosed with CLL treated with chemo successfully, 08/2014 R side back mass-diffuse large B cell lymphoma treated with chemo, 11/2016 recurrent R back mass-diffuse large B cell lymphoma with current chemo, pancytopenia, ITP, anemia, pneumonia with sepsis, 02/20/17 NSTEMI with heart cath-tx medically. Last Myocardial Infarction Date:: 02/20/17 History of Any Multi-Drug Resistant Organisms: None Reported Past Surgical History: Heart Catheterization, Heart Catheterization With Stent Additional Past Surgical History / Comment(s): 02/20/17 cardiac cath, 2000 [facility], R upper back mass-needle bxs, colonoscopy-normal, power port, 2019 [facility]. Past Anesthesia/Blood Transfusion Reactions: No Reported Reaction Additional Past Anesthesia/Blood Transfusion Reaction / Comm: Pt has received blood in the past without reaction. 02/20/17 pt had chest pain/SOB (NSTEMI) 1 day post transfusion. Date of Last Stent Placement:: 2017 Past Psychological History: No Psychological Hx Reported Smoking Status: Former smoker - Past Family History Father Additional Family Medical History / Comment(s): Father was an alcoholic. He committed suicide. Mother Family Medical History: Cancer Additional Family Medical History / Comment(s): Mother had Breast Cancer 25 yrs ago. She is 85yrs old. Medications and Allergies Home Medications Medication Instructions Recorded Confirmed Type Folic Acid 1 mg PO DAILY 02/18/17 08/30/18 History Atorvastatin [Lipitor] 80 mg PO DAILY 06/02/18 08/30/18 History ALPRAZolam [Xanax] 0.25 mg PO TID PRN #6 tab 08/20/18 08/30/18 Rx Acetaminophen Tab [Tylenol] 500 mg PO Q4H PRN tab 08/20/18 08/30/18 Rx Allopurinol [Zyloprim] 300 mg PO DAILY tab 08/20/18 08/30/18 Rx Ascorbic Acid [Vitamin C] 500 mg PO DAILY tab 08/20/18 08/30/18 Rx Ferrous Sulfate [Iron (65 MG 325 mg PO TID tab 08/20/18 08/30/18 Rx Elemental)] Ipratropium-Albuterol Nebulize 3 ml INHALATION RT-QID PRN 08/20/18 08/30/18 Rx [Duoneb 0.5 mg-3 mg/3 ml Soln] ampul.neb Lidocaine Viscous [Xylocaine 30 ml PO Q4HR PRN ml 08/20/18 08/30/18 Rx Viscous 2%] Mag Hydrox/Al Hydrox/Simeth 30 ml PO Q4HR cup 08/20/18 08/30/18 Rx [Maalox] Nystatin 100,000 Unit/ml Susp 3,000,000 unit PO Q4HR cup 08/20/18 08/30/18 Rx [Mycostatin Oral Susp] Pantoprazole [Protonix] 40 mg PO [id number]-[id number] tablet. 08/20/18 08/30/18 Rx Potassium Chloride ER [K-Dur 20] 20 meq PO BID tab.er.prt 08/20/18 08/30/18 Rx traMADol HCl [Ultram] 50 mg PO Q6HR PRN tab 08/20/18 08/30/18 Rx Metoprolol Succinate (ER) [Toprol 25 mg PO DAILY 08/30/18 08/30/18 History XL] Acyclovir [Zovirax] 400 mg PO TID #90 ml 08/31/18 Rx Levofloxacin [Levaquin] 500 mg PO DAILY #7 tab 08/31/18 Rx Allergies Allergy/AdvReac Type Severity Reaction Status Date / Time No Known Allergies Allergy Verified 08/30/18 14:32 Physical Exam Vitals: Vital Signs Temp Pulse Pulse Resp BP BP Pulse Ox 08/31/18 11:22 97.7 F 106 H 16 107/65 100 08/31/18 06:23 100.0 F H 103 H 08/31/18 04:49 101.5 F H 125 H 16 102/58 97 08/31/18 04:03 100.4 F H 116 H 20 105/60 97 08/31/18 01:46 98.6 F 110 H 20 102/62 08/31/18 01:16 98.8 F 119 H 20 97/53 08/31/18 01:06 98.2 F 120 H 18 106/56 97 08/31/18 00:12 98.1 F 109 H 20 93/56 08/31/18 00:00 20 08/30/18 23:46 98.0 F 113 H 20 98/55 97 08/30/18 23:16 97.9 F 112 H 18 92/54 98 08/30/18 23:06 98.2 F 18 96/57 97 08/30/18 21:53 92/56 08/30/18 21:00 98.1 F 16 86/50 100 08/30/18 18:28 97.7 F 108 H 16 103/59 98 08/30/18 17:30 98.5 F 108 H 18 91/56 100 08/30/18 17:20 99 08/30/18 17:11 99 08/30/18 17:00 98.5 F 112 H 18 105/71 100 08/30/18 16:50 98.3 F 111 H 20 106/61 97 08/30/18 16:00 111 H 18 109/59 97 08/30/18 15:00 112 H 14 93/63 96 08/30/18 14:48 112 H 16 93/63 96 Intake and Output 08/30/18 08/31/18 08/31/18 22:59 06:59 14:59 Intake Total 2529 1472 1000 Output Total 260 240 200 Balance 2269 1232 800 Intake: IV 200 Intake, IV Titration 1549 800 800 Amount Levofloxacin 750Mg-D5w 150 Pmx 750 mg In Dextrose/ Water 1 150ml.bag @ 100 mls/hr IVPB ONCE STA Rx#: [id number] Meropenem 1 gm In Sodium 100 Chloride 0.9% 100 ml @ 200 mls/hr IVPB Q12H TAMI Rx#:[id number] Sodium Chloride 0.9% 1, 800 800 000 ml @ 100 mls/hr IV . Q10H TAMI Rx#:[id number] Sodium Chloride 0.9% 1, 300 000 ml @ 75 mls/hr IV . [id number] STA Rx#:[id number] Sodium Chloride 0.9% 1, 999 000 ml @ 999 mls/hr IV . Q1H1M ONE Rx#:[id number] Oral 360 60 Blood Product 620 612 Platelet Irr Pheresis 2 302 Acda Unit [id number] Rc Irr As1 Unit 310 [id number] Rc Irr As1 Unit 310 [id number] Output: Urine 260 240 200 Other: # Voids 1 # Bowel Movements 0 - Constitutional General appearance: no acute distress - EENT Evidence of old blood in nares bilaterally Eyes: edentulous, EOMI, PERRLA ENT: hearing grossly normal, pharyngeal erythema - Neck Neck: no lymphadenopathy Thyroid: bilateral: normal size - Respiratory Respiratory: bilateral: CTA - Cardiovascular Rhythm: regular Heart sounds: normal: S1, S2 - Gastrointestinal General gastrointestinal: normal bowel sounds, soft - Integumentary Integumentary: normal - Neurologic Neurologic: CNII-XII intact - Musculoskeletal Musculoskeletal: generalized weakness, strength equal bilaterally - Psychiatric Psychiatric: A&O x's 3, appropriate affect Results CBC & Chem 7: 08/31/18 06:33 08/31/18 06:33 Labs: Abnormal Lab Results - Last 24 Hours (Table) 08/30/18 08/30/18 08/30/18 Range/Units 14:45 14:45 14:45 WBC 0.8 L* (3.8-10.6) k/uL RBC 2.17 L (4.30-5.90) m/uL Hgb 6.3 L* (13.0-17.5) gm/dL Hct 18.7 L* (39.0-53.0) % Plt Count 8 L* (150-450) k/uL PT (9.0-12.0) sec INR (<1.2) APTT (22.0-30.0) sec Sodium 135 L (137-145) mmol/L Carbon Dioxide 20 L (22-30) mmol/L BUN 21 H (9-20) mg/dL Creatinine 1.29 H (0.66-1.25) mg/dL Glucose 122 H (74-99) mg/dL Uric Acid (3.5-8.5) mg/dL Calcium 8.2 L (8.4-10.2) mg/dL Phosphorus (2.5-4.5) mg/dL Total Bilirubin 1.9 H (0.2-1.3) mg/dL AST 153 H (17-59) U/L ALT 120 H (21-72) U/L Alkaline Phosphatase 442 H (38-126) U/L Total Protein 6.2 L (6.3-8.2) g/dL Albumin 3.0 L (3.5-5.0) g/dL Urine Protein (Negative) Urine Blood (Negative) Hyaline Casts (0-2) /lpf Urine Mucus (None) /hpf Crossmatch See Detail 08/30/18 08/30/18 08/30/18 Range/Units 14:45 22:24 23:15 WBC 0.5 L* (3.8-10.6) k/uL RBC 2.33 L (4.30-5.90) m/uL Hgb 6.9 L* (13.0-17.5) gm/dL Hct 20.3 L (39.0-53.0) % Plt Count 7 L* (150-450) k/uL PT 13.7 H (9.0-12.0) sec INR 1.3 H (<1.2) APTT 42.2 H (22.0-30.0) sec Sodium (137-145) mmol/L Carbon Dioxide (22-30) mmol/L BUN (9-20) mg/dL Creatinine (0.66-1.25) mg/dL Glucose (74-99) mg/dL Uric Acid (3.5-8.5) mg/dL Calcium (8.4-10.2) mg/dL Phosphorus (2.5-4.5) mg/dL Total Bilirubin (0.2-1.3) mg/dL AST (17-59) U/L ALT (21-72) U/L Alkaline Phosphatase (38-126) U/L Total Protein (6.3-8.2) g/dL Albumin (3.5-5.0) g/dL Urine Protein 2+ H (Negative) Urine Blood Small H (Negative) Hyaline Casts 7 H (0-2) /lpf Urine Mucus Occasional H (None) /hpf Crossmatch 08/31/18 08/31/18 08/31/18 Range/Units 06:33 06:33 06:33 WBC 0.5 L* (3.8-10.6) k/uL RBC 2.50 L (4.30-5.90) m/uL Hgb 7.3 L (13.0-17.5) gm/dL Hct 21.7 L (39.0-53.0) % Plt Count 18 L* D (150-450) k/uL PT 13.8 H (9.0-12.0) sec INR 1.4 H (<1.2) APTT 36.3 H (22.0-30.0) sec Sodium 135 L (137-145) mmol/L Carbon Dioxide 20 L (22-30) mmol/L BUN (9-20) mg/dL Creatinine (0.66-1.25) mg/dL Glucose 110 H (74-99) mg/dL Uric Acid 2.6 L (3.5-8.5) mg/dL Calcium 7.2 L (8.4-10.2) mg/dL Phosphorus 2.1 L (2.5-4.5) mg/dL Total Bilirubin 2.0 H (0.2-1.3) mg/dL AST 63 H (17-59) U/L ALT 74 H (21-72) U/L Alkaline Phosphatase 348 H (38-126) U/L Total Protein 4.6 L (6.3-8.2) g/dL Albumin 2.2 L (3.5-5.0) g/dL Urine Protein (Negative) Urine Blood (Negative) Hyaline Casts (0-2) /lpf Urine Mucus (None) /hpf Crossmatch Chest x-ray: report reviewed Assessment and Plan (1) Neutropenia with fever Narrative/Plan: The patient has been afebrile at home, on prophylactic oral antibiotics. During this admission, he did spike a temp of 101+. This could potentially be post transfusion, but x-ray raises the possibility of a pneumonia. Therefore the patient has been switched back on to IV antibiotics. Cultures have been ordered and are pending. ID consult Current Visit: No Status: Acute Code(s): D70.9 - NEUTROPENIA, UNSPECIFIED; R50.81 - FEVER PRESENTING WITH CONDITIONS CLASSIFIED ELSEWHERE SNOMED Code(s): 158373282 (2) Pancytopenia due to antineoplastic chemotherapy Narrative/Plan: This is due to chemotherapy, as well as underlying AML. Patient was sent in for supportive transfusions.. She and today his hemoglobin and platelets are in a safe range. Continue to monitor and transfuse as needed to keep hemoglobin gr eater than 7 and platelets greater than 10. He receives only irradiated blood products. Current Visit: No Status: Acute Code(s): D61.810 - ANTINEOPLASTIC CHEMOTHERAPY INDUCED PANCYTOPENIA; T45.1X5A - ADVERSE EFFECT OF ANTINEOPLASTIC AND IMMUNOSUP DRUGS, INIT SNOMED Code(s): 000974642284906 (3) Acute myelogenous leukemia Narrative/Plan: The patient has completed 3 weeks on his current regimen. He will have bone marrow aspiration biopsy today to assess response.Continue Venetoclax by mouth from home, till bone marrow is resulted Current Visit: Yes Status: Acute Priority: High Code(s): C92.00 - ACUTE MYELOBLASTIC LEUKEMIA, NOT HAVING ACHIEVED REMISSION SNOMED Code(s): 62043988 (4) Bleeding Narrative/Plan: Nasal bleeding has been occurring over the past couple days. This is likely a combination of mechanical factors as well as low platelets. This did resolve after receiving platelets. Continue to monitor Current Visit: Yes Status: Acute Priority: High Code(s): R58 - HEMORRHAGE, NOT ELSEWHERE CLASSIFIED SNOMED Code(s): 197368736
[2018-08-31] MEDS: traMADol 50 MG TAB PO PRN (22:30)
--- NOTE | 2018-08-31 23:24 | P.CONS ---
History of Present Illness - Reason for Consult Consult date: 08/31/18 - Chief Complaint weakness - History of Present Illness This is a 62-year-old male with significant past history of CLL initially diagnosed in December 2000 followed by diagnosis of diffuse large B- cell lymphoma in 2014 and again in 2016. He suffered from myocardial infarction during course of chemotherapy was stopped. Heart catheterization found complete RCA occlusion with collaterals and tight stenosis in the circumflex that was difficult to stent and not considered a candidate for surgery and was placed on medical management but eventually had successful stenting of the LAD and left circumflex. It was decided in September 2017 not to proceed with chemotherapy. In May of this year, patient presented with shortness of breath and pancytopenia was found to be in acute myeloleukemia and started chemotherapy on June 12 with 7+3 regime, supportive transfusions and prophylactic antibiotics. The patient's course was complicated as he appeared does not have any drug coverage and application to the drug companies have been done by the oncologist office. 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 Patient presented to [facility] emergency center on August 02 with complaints of weakness and intermittent confusion. Patient also states he was running fevers at home. He denies having any shortness of breath or chest pain. He states he has had a cough with possibly some sputum production. At that time was with fever of 103.3, tachycardia and hypotension. White cell count is at 19.9, hemoglobin 8.7 and platelet count 15 . During that state or fibrillation also occurred. Patient was hospitalized for many days and eventually discharged on oral antibiotic therapy for ongoing outpatient chemotherapy. No presents with significant fatigue and malaise. Has significant anemia and thrombocytopenia. He received 3 units of packed red cells and 2 units of platelets and is feeling slightly better today. Low-grade fever was noted. It is not ongoing patient does feel better today. Review of Systems Constitutional: Reports fever, reports chills, no night sweats. Reports weakness, fatigue or lethargy. Reports daytime sleepiness. EENT: No headache. No blurred vision or double vision, no loss of vision. No loss of Hearing, no ringing in the ears, no dizziness. No nasal drainage or congestion. No epistaxis. No sore throat. Lungs: No shortness of breath, reports cough, reports sputum production. No wheezing. Cardiovascular: No chest pain, no lower extremity edema. Reports palpitations. No paroxysmal nocturnal dyspnea. No orthopnea. No lightheadedness or dizziness. No syncopal episodes. Abdominal: No abdominal pain. No nausea, vomiting. No diarrhea. No constipation. No bloody or tarry stools. Reports loss of appetite. Genitourinary: No dysuria, increased frequency, urgency. No urinary retention. Musculoskeletal: No myalgias. Reports muscle weakness, no frequent falls. Integumentary: No wounds, no lesions. No rash or pruritus. No unusual bruising. Neurologic: No aphasia. No facial droop. Reports change in mentation. No head injury. No headache. No paralysis. No paresthesia. Psychiatric: No depression. No anxiety. No mood swings. Endocrine: No abnormal blood sugars. No weight change. No excessive sweating or thirst. No cold intolerance. Past Medical History Past Medical History: Cancer, Myocardial Infarction (AL), Pneumonia Additional Past Medical History / Comment(s): 2000 diagnosed with CLL treated with chemo successfully, 08/2014 R side back mass-diffuse large B cell lymphoma treated with chemo, 11/2016 recurrent R back mass-diffuse large B cell lymphoma with current chemo, pancytopenia, ITP, anemia, pneumonia with sepsis, 02/20/17 NSTEMI with heart cath-tx medically. Last Myocardial Infarction Date:: 02/20/17 History of Any Multi-Drug Resistant Organisms: None Reported Past Surgical History: Heart Catheterization, Heart Catheterization With Stent Additional Past Surgical History / Comment(s): 02/20/17 cardiac cath, 2000 BMA, R upper back mass-needle bxs, colonoscopy-normal, power port, 2019 [facility]. Past Anesthesia/Blood Transfusion Reactions: No Reported Reaction Additional Past Anesthesia/Blood Transfusion Reaction / Comm: Pt has received blood in the past without reaction. 02/20/17 pt had chest pain/SOB (NSTEMI) 1 day post transfusion. Date of Last Stent Placement:: 2017 Past Psychological History: No Psychological Hx Reported Additional Psychological History / Comment(s): Patient has history of smoking 1 pack per day for over 44 years and quit 2 months ago. He denies any marijuana, street drug or alcohol use. He lives at home with his daughter and there is a dog in the home. He denies any recent travel. No service. 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 Smoking Status: Former smoker - Past Family History Father Additional Family Medical History / Comment(s): Father was an alcoholic. He committed suicide. Mother Family Medical History: Cancer Additional Family Medical History / Comment(s): Mother had Breast Cancer 25 yrs ago. She is 85yrs old. Medications and Allergies Home Medications and Allergies Comment(s): Current Medications Acetaminophen (Tylenol Tab) 500 mg PO Q4H PRN PRN Reason: Mild Pain or Fever > 100.5 Last Admin: 08/31/18 04:19 Dose: 500 mg Documented by: Acyclovir (Zovirax) 400 mg PO BID FOR[facility], [facility] Last Admin: 08/31/18 22:23 Dose: 400 mg Documented by: Al Hydroxide/Mg Hydroxide (Maalox) 30 ml PO Q4HR PRN PRN Reason: Upset Stomach Albuterol/Ipratropium (Duoneb 0.5 Mg-3 Mg/3 Ml Soln) 3 ml INHALATION RT-QID PRN PRN Reason: Shortness Of Breath Or Wheezing Allopurinol (Zyloprim) 300 mg PO DAILY FOR[facility]LY [facility], [facility] Last Admin: 08/31/18 08:44 Dose: 300 mg Documented by: Alprazolam (Xanax) 0.25 mg PO TID PRN PRN Reason: Anxiety Atorvastatin Calcium (Lipitor) 80 mg PO DAILY [facility], [facility] Last Admin: 08/31/18 08:44 Dose: 80 mg Documented by: Ferrous Sulfate (Feosol) 325 mg PO TID [facility], [facility] Last Admin: 08/31/18 22:23 Dose: 325 mg Documented by: Folic Acid (Folic Acid) 1 mg PO DAILY FOR[facility], [facility] Last Admin: 08/31/18 09:47 Dose: Not Given Documented by: Sodium Chloride (Saline 0.9%) 1,000 mls @ 50 mls/hr IV .Q20H [facility], [facility] Last Admin: 08/31/18 10:22 Dose: 100 mls/hr Documented by: Meropenem 1 gm/ Sodium (Chloride) 100 mls @ 200 mls/hr IVPB Q12H [facility], [facility]; Protocol Last Admin: 08/31/18 11:56 Dose: 200 mls/hr Documented by: Lidocaine HCl (Xylocaine Viscous) 30 ml MUCOUS MEM Q4HR PRN PRN Reason: Oral Pain Last Admin: 08/31/18 22:33 Dose: 30 ml Documented by: Naloxone HCl (Narcan) 0.2 mg IV Q2M PRN PRN Reason: Opioid Reversal Pantoprazole Sodium (Protonix) 40 mg IV DAILY [facility] Last Admin: 08/31/18 08:44 Dose: 40 mg Documented by: Potassium Chloride (K-Dur 20) 20 meq PO BID [facility], [facility] Last Admin: 08/31/18 22:23 Dose: 20 meq Documented by: Tramadol HCl (Ultram) 50 mg PO Q6HR PRN PRN Reason: Moderate Pain Last Admin: 08/31/18 22:30 Dose: 50 mg Documented by: Home Medications Medication Instructions Recorded Confirmed Type Folic Acid 1 mg PO DAILY 02/18/17 08/30/18 History Atorvastatin [Lipitor] 80 mg PO DAILY 06/02/18 08/30/18 History ALPRAZolam [Xanax] 0.25 mg PO TID PRN #6 tab 08/20/18 08/30/18 Rx Acetaminophen Tab [Tylenol] 500 mg PO Q4H PRN tab 08/20/18 08/30/18 Rx Allopurinol [Zyloprim] 300 mg PO DAILY tab 08/20/18 08/30/18 Rx Ascorbic Acid [Vitamin C] 500 mg PO DAILY tab 08/20/18 08/30/18 Rx Ferrous Sulfate [Iron (65 MG 325 mg PO TID tab 08/20/18 08/30/18 Rx Elemental)] Ipratropium-Albuterol Nebulize 3 ml INHALATION RT-QID PRN 08/20/18 08/30/18 Rx [Duoneb 0.5 mg-3 mg/3 ml Soln] ampul.neb Lidocaine Viscous [Xylocaine 30 ml PO Q4HR PRN ml 08/20/18 08/30/18 Rx Viscous 2%] Mag Hydrox/Al Hydrox/Simeth 30 ml PO Q4HR cup 08/20/18 08/30/18 Rx [Maalox] Nystatin 100,000 Unit/ml Susp 3,000,000 unit PO Q4HR cup 08/20/18 08/30/18 Rx [Mycostatin Oral Susp] Pantoprazole [Protonix] 40 mg PO [id number] tablet. 08/20/18 08/30/18 Rx Potassium Chloride ER [K-Dur 20] 20 meq PO BID tab.er.prt 08/20/18 08/30/18 Rx traMADol HCl [Ultram] 50 mg PO Q6HR PRN tab 08/20/18 08/30/18 Rx Metoprolol Succinate (ER) [Toprol 25 mg PO DAILY 08/30/18 08/30/18 History XL] Acyclovir [Zovirax] 400 mg PO TID #90 ml 08/31/18 Rx Levofloxacin [Levaquin] 500 mg PO DAILY #7 tab 08/31/18 Rx Allergies Allergy/AdvReac Type Severity Reaction Status Date / Time No Known Allergies Allergy Verified 08/30/18 14:32 Physical Exam Vitals: Vital Signs Temp Pulse Pulse Resp BP BP Pulse Ox 08/31/18 21:00 99.0 F 144 H 16 108/60 97 08/31/18 13:45 130/73 08/31/18 13:31 122/74 08/31/18 11:22 97.7 F 106 H 16 107/65 100 08/31/18 06:23 100.0 F H 103 H 08/31/18 04:49 101.5 F H 125 H 16 102/58 97 08/31/18 04:03 100.4 F H 116 H 20 105/60 97 08/31/18 01:46 98.6 F 110 H 20 102/62 08/31/18 01:16 98.8 F 119 H 20 97/53 08/31/18 01:06 98.2 F 120 H 18 106/56 97 08/31/18 00:12 98.1 F 109 H 20 93/56 08/31/18 00:00 20 08/30/18 23:46 98.0 F 113 H 20 98/55 97 08/30/18 23:16 97.9 F 112 H 18 92/54 98 Intake and Output 08/31/18 08/31/18 09/01/18 14:59 22:59 06:59 Intake Total 1000 400 Output Total 200 Balance 800 400 Intake: IV 200 400 Sodium Chloride 0.9% 1, 400 000 ml @ 50 mls/hr IV . Q20H [facility] Rx#:[id number] Intake, IV Titration 800 Amount Sodium Chloride 0.9% 1, 800 000 ml @ 50 mls/hr IV . Q20H [facility] Rx#:[id number] Output: Urine 200 Other: # Voids 1 Weight 60.328 kg Gen: This is a thin 62-year-old male. He is resting in bed and sleeping and awakens easily to verbal stimuli. HEENT: Head is atraumatic, normocephalic. Pupils equal, round. Sclerae is anicteric. Oral mucous membranes are sticky with white coating on his tongue. Patient is essentially edentulous with 1 lone tooth on top mid front. NECK: Supple. No JVD. No thyromegaly. LUNGS: Scattered rhonchi and bibasilar rales. Congestive moist cough noted. No intercostal retractions. HEART: Regular rate and rhythm. No murmur. Tachycardic. ABDOMEN: Soft. Bowel sounds are present. No masses. No tenderness. No right upper quadrant tenderness. EXTREMITIES: No pedal edema. No calf tenderness. Dorsalis pedis are +1 bilaterally. NEUROLOGICAL: Patient is awake, alert and oriented x2. Cranial nerves 2 through 12 are grossly intact. Generalized weakness noted. Results CBC & Chem 7: 08/31/18 06:33 08/31/18 06:33 Labs: Abnormal Lab Results - Last 24 Hours (Table) 08/30/18 08/30/18 08/31/18 Range/Units 14:45 23:15 06:33 WBC 0.5 L* (3.8-10.6) k/uL RBC 2.50 L (4.30-5.90) m/uL Hgb 7.3 L (13.0-17.5) gm/dL Hct 21.7 L (39.0-53.0) % Plt Count 18 L* D (150-450) k/uL PT (9.0-12.0) sec INR (<1.2) APTT (22.0-30.0) sec Sodium (137-145) mmol/L Carbon Dioxide (22-30) mmol/L Glucose (74-99) mg/dL Uric Acid (3.5-8.5) mg/dL Calcium (8.4-10.2) mg/dL Phosphorus (2.5-4.5) mg/dL Total Bilirubin (0.2-1.3) mg/dL AST (17-59) U/L ALT (21-72) U/L Alkaline Phosphatase (38-126) U/L Total Protein (6.3-8.2) g/dL Albumin (3.5-5.0) g/dL Urine Protein 2+ H (Negative) Urine Blood Small H (Negative) Hyaline Casts 7 H (0-2) /lpf Urine Mucus Occasional H (None) /hpf Crossmatch See Detail 08/31/18 08/31/18 Range/Units 06:33 06:33 WBC (3.8-10.6) k/uL RBC (4.30-5.90) m/uL Hgb (13.0-17.5) gm/dL Hct (39.0-53.0) % Plt Count (150-450) k/uL PT 13.8 H (9.0-12.0) sec INR 1.4 H (<1.2) APTT 36.3 H (22.0-30.0) sec Sodium 135 L (137-145) mmol/L Carbon Dioxide 20 L (22-30) mmol/L Glucose 110 H (74-99) mg/dL Uric Acid 2.6 L (3.5-8.5) mg/dL Calcium 7.2 L (8.4-10.2) mg/dL Phosphorus 2.1 L (2.5-4.5) mg/dL Total Bilirubin 2.0 H (0.2-1.3) mg/dL AST 63 H (17-59) U/L ALT 74 H (21-72) U/L Alkaline Phosphatase 348 H (38-126) U/L Total Protein 4.6 L (6.3-8.2) g/dL Albumin 2.2 L (3.5-5.0) g/dL Urine Protein (Negative) Urine Blood (Negative) Hyaline Casts (0-2) /lpf Urine Mucus (None) /hpf Crossmatch Microbiology - Last 24 Hours (Table) 08/30/18 20:05 Blood Culture - Preliminary Blood No Growth after 24 hours 08/30/18 19:55 Blood Culture - Preliminary Blood No Growth after 24 hours Laboratory Results WBC 0.5 k/uL (3.8-10.6) L* 08/31/18 06:33 RBC 2.50 m/uL (4.30-5.90) L 08/31/18 06:33 Hgb 7.3 gm/dL (13.0-17.5) L 08/31/18 06:33 Hct 21.7 % (39.0-53.0) L 08/31/18 06:33 MCV 86.7 fL (80.0-100.0) 08/31/18 06:33 MCH 29.2 pg (25.0-35.0) 08/31/18 06:33 MCHC 33.7 g/dL (31.0-37.0) 08/31/18 06:33 RDW 15.0 % (11.5-15.5) 08/31/18 06:33 Plt Count 18 k/uL (150-450) L* D 08/31/18 06:33 Neutrophils # 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 [employer]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 08/30/18 14:45 Differential Comment 08/31/18 06:33 Manual Slide Review Performed 08/31/18 06:33 Poikilocytosis (manual Present 08/31/18 06:33 PT 13.8 sec (9.0-12.0) H 08/31/18 06:33 INR 1.4 (<1.2) H 08/31/18 06:33 APTT 36.3 sec (22.0-30.0) H 08/31/18 06:33 Sodium 135 mmol/L (137-145) L 08/31/18 06:33 Potassium 3.5 mmol/L (3.5-5.1) 08/31/18 06:33 Chloride 107 mmol/L (98-107) 08/31/18 06:33 Carbon Dioxide 20 mmol/L (22-30) L 08/31/18 06:33 Anion Gap 8 mmol/L 08/31/18 06:33 BUN 14 mg/dL (9-20) 08/31/18 06:33 Creatinine 0.83 mg/dL (0.66-1.25) 08/31/18 06:33 Est GFR (CKD-EPI)AfAm >90 (>60 ml/min/1.73 sqM) 08/31/18 06:33 Est GFR (CKD-EPI)NonAf >90 (>60 ml/min/1.73 sqM) 08/31/18 06:33 Glucose 110 mg/dL (74-99) H 08/31/18 06:33 Uric Acid 2.6 mg/dL (3.5-8.5) L 08/31/18 06:33 Calcium 7.2 mg/dL (8.4-10.2) L 08/31/18 06:33 Phosphorus 2.1 mg/dL (2.5-4.5) L 08/31/18 06:33 Magnesium 1.9 mg/dL (1.6-2.3) 08/31/18 06:33 Total Bilirubin 2.0 mg/dL (0.2-1.3) H 08/31/18 06:33 AST 63 U/L (17-59) H 08/31/18 06:33 ALT 74 U/L (21-72) H 08/31/18 06:33 Alkaline Phosphatase 348 U/L (38-126) H 08/31/18 06:33 Lactate Dehydrogenase 393 U/L (313-618) 08/31/18 06:33 NT-Pro-B Natriuret Pep 6710 pg/mL 08/30/18 22:24 Total Protein 4.6 g/dL (6.3-8.2) L 08/31/18 06:33 Albumin 2.2 g/dL (3.5-5.0) L 08/31/18 06:33 Urine Color Yellow 08/30/18 23:15 Urine Appearance Cloudy (Clear) 08/30/18 23:15 Urine pH 5.5 (5.0-8.0) 08/30/18 23:15 Ur Specific [place] 1.022 (1.001-1.035) 08/30/18 23:15 Urine Protein 2+ (Negative) H 08/30/18 23:15 Urine Glucose (UA) Negative (Negative) 08/30/18 23:15 Urine Ketones Negative (Negative) 08/30/18 23:15 Urine Blood Small (Negative) H 08/30/18 23:15 Urine Nitrite Negative (Negative) 08/30/18 23:15 Urine Bilirubin Negative (Negative) 08/30/18 23:15 Urine Urobilinogen 2.0 mg/dL (<2.0) 08/30/18 23:15 Ur Leukocyte Esterase Negative (Negative) 08/30/18 23:15 Urine RBC 3 /hpf (0-5) 08/30/18 23:15 Urine WBC 5 /hpf (0-5) 08/30/18 23:15 Ur Squamous Epith Cells <1 /hpf (0-4) 08/30/18 23:15 Hyaline Casts 7 /lpf (0-2) H 08/30/18 23:15 Granular Casts 311 /lpf (0) 08/30/18 23:15 Urine Mucus Occasional /hpf (None) H 08/30/18 23:15 Blood Type A Negative 08/30/18 14:45 Blood Type Recheck No 08/30/18 14:45 Antibody Screen NEGATIVE 08/30/18 14:45 Crossmatch See Detail 08/30/18 14:45 Transfuse Platelets 08/30/18 08/30/18 15:08 Spec Expiration Date 09/02/2018 - 2345 08/30/18 14:45 Microbiology 08/30/18 20:05 Blood Blood Culture - Preliminary No Growth after 24 hours 08/30/18 19:55 Blood Blood Culture - Preliminary No Growth after 24 hours Assessment and Plan (1) Acute myelogenous leukemia Current Visit: Yes Status: Acute Priority: High Code(s): C92.00 - ACUTE MYELOBLASTIC LEUKEMIA, NOT HAVING ACHIEVED REMISSION SNOMED Code(s): 91979244 (2) Pancytopenia due to antineoplastic chemotherapy Narrative/Plan: 62-year-old male presents to Hospital with increasing weakness. On evidence of worsening of his pancytopenia requiring 3 units of packed red cells and 2 units of platelets. Feeling somewhat better today. He was due for a bone marrow aspiration this occurred today. Overall is feeling better and it was during his last hospitalization but is still very weak. He had a fever 101.5 that is resolved. No new symptoms are noted. Does not appear to have any new acute infection problems and it is ready to discharge home per the oncology service and Levaquin and acyclovir will be continued at the time of his discharge. Current Visit: No Status: Acute Code(s): D61.810 - ANTINEOPLASTIC CHEMOTHERAPY INDUCED PANCYTOPENIA; T45.1X5A - ADVERSE EFFECT OF ANTINEOPLASTIC AND IMMUNOSUP DRUGS, INIT SNOMED Code(s): 992362109076419
[2018-09-01] MEDS ORDERED: SODIUM CHLORIDE 0.9% 1,000 ML IV ONE (04:53)
[2018-09-01] MEDS: PANTOPRAZOLE 40 MG/10 ML VIAL IV SCH (09:21)
[2018-09-01] MEDS: FERROUS SULFATE 325 MG TAB PO SCH ×3 (09:22→21:51)
[2018-09-01] MEDS: POTASSIUM CHLORIDE ER 20 MEQ TAB.ER PO SCH ×2 (09:22→21:52)
[2018-09-01] MEDS: ATORVASTATIN 80 MG TAB PO SCH (09:22)
[2018-09-01] MEDS: ALLOPURINOL 300 MG TAB PO SCH (09:22)
[2018-09-01] MEDS: FOLIC ACID 1 MG TAB PO SCH (09:22)
[2018-09-01] MEDS: ACYCLOVIR 200 MG CAP PO SCH ×2 (09:22→21:51)
[2018-09-01] MEDS: SODIUM CHLORIDE 0.9% 1,000 ML IV SCH (09:23)
[2018-09-01 10:07] LABS: HCT 23.7 % (39.0-53.0); HGB 7.7 gm/dL (13.0-17.5); MCHC 32.6 g/dL (31.0-37.0); Mean Platelet Volume 7.5; RBC 2.66 m/uL (4.30-5.90); RDW 15.2 % (11.5-15.5)
[2018-09-01 10:15] LABS: Platelet Count 10 k/uL (150-450); WBC 0.6 k/uL (3.8-10.6)
[2018-09-01 10:22] LABS: ALT 51 U/L (21-72); AST 41 U/L (17-59); African American GFR (CKD) >90 (>60 ml/min/1.73 sqM); Albumin 2.1 g/dL (3.5-5.0); Alkaline Phosphatase 340 U/L (38-126); Anion Gap 7 mmol/L; Blood Urea Nitrogen 12 mg/dL (9-20); Calcium 7.2 mg/dL (8.4-10.2); Carbon Dioxide 18 mmol/L (22-30); Chloride 111 mmol/L (98-107); Glucose 132 mg/dL (74-99); Potassium 3.5 mmol/L (3.5-5.1); Sodium 136 mmol/L (137-145); Total Bilirubin 2.1 mg/dL (0.2-1.3); Total Protein 4.4 g/dL (6.3-8.2)
[2018-09-01] MEDS: MEROPENEM 1 GM in SODIUM CHLORIDE 0.9% 100 ML IVPB SCH ×2 (12:27→23:50)
[2018-09-01] MEDS: DEXAMETHASONE ORAL 4 MG/ML VIAL PO SCH ×3 (12:28→21:53)
--- NOTE | 2018-09-01 12:47 | P.PN ---
Subjective This is a pleasant 62 years old male with past medical history of acute myelocytic leukemia, on chemotherapy, generalized weakness and congestive heart failure with with ejection fraction of 35%. Nonsustained V. tach. Patient was recently discharged from the hospital about 10 days ago where he has prolonged hospital course with pancytopenia, episodic fever, mainly low-grade. And generalized weakness. Patient was sent to the hospital and emergency room, advised by his oncologist. pt presents because he is been feeling weak, with coughing and bloody colored phlegm, however he denies chest pain or dyspnea , no abd pain , no diarrhea , no change in mental status or dizziness, and no urinary complaints On admission his blood pressure was in the low size 65/46. And 93/63. Tachycardia of 110-112. Respiratory to what 16/m and is saturating 96% on room air. With no fever on admission Labs showing pancytopenia with WBC of 0.8, hemoglobin 6.3, platelets 8. INR 1.3. Creatinine 1.29, sodium 135, glucose 122, bilirubin 1.9 and liver enzymes slightly elevated 120 to 150s. EKG showing sinus tachycardia at 120 BPM with QTC 505. Chest x-ray showing new masslike consolidation of the right lower lobe, suspicious for pneumonia d/w staff , pt is going to receive one unit of blood transfusion 08/31/2018 Patient today is awake and oriented, clinically looks similar to yesterday however his patellar has improved significantly. Patient was hypotensive overnight and needed 1 L of normal saline bolus. His blood pressure improved today and was on 2/58 and 107/65. Patient is running fever at 101.5 today. Risks of vitals are stable and he saturated 100% on room air. Patient still have some coughing with blood colored sputum. Labs still showing pancytopenia with improvement of hemoglobin up to 7.3. However WBC 0.5 and platelet 18. INR 1.4. Creatinine is within normal limits. Serum bilirubin and liver enzymes are mildly elevated but stable. Urinalysis is not suspicious of infection. Patient currently on meropenem, acyclovir and normal saline at 100 mL per hour 09/01/2018 Patient clinically the same with feeling generally weak but his cough and hemoptysis is significantly improved. No chest pain. His breathing quietly. He saturating 97% on room air. No change in her bowel habits or diarrhea. However patient has difficulty eating because of sores in his mouth. We ordered nystatin-call swish and spit for him. Bone marrow biopsy is still pending. Objective - Vital Signs Vital signs: Vital Signs Temp 98.7 F 09/01/18 12:11 Pulse 122 H 09/01/18 12:11 Resp 16 09/01/18 12:11 BP 98/57 09/01/18 12:11 Pulse Ox 97 09/01/18 12:11 Intake & Output 08/31/18 09/01/18 09/01/18 18:59 06:59 18:59 Intake Total 1000 990 Output Total 200 500 Balance 800 490 Weight 60.328 kg Intake: IV 200 400 Sodium Chloride 0.9% 1, 400 000 ml @ 50 mls/hr IV . Q20H [facility] Rx#:[id number] Intake, IV Titration 800 Amount Sodium Chloride 0.9% 1, 800 000 ml @ 50 mls/hr IV . Q20H [facility] Rx#:[id number] Oral 590 Output: Urine 200 500 Other: Voiding Method Diaper Diaper Incontinent Incontinent # Voids 1 3 - Exam -GENERAL: The patient is alert and oriented x3, not in any acute distress. he is cachectic HEENT: Pupils are round and equally reacting to light. EOMI. No scleral icterus. No conjunctival pallor. Normocephalic, atraumatic. No pharyngeal erythema. No thyromegaly. CARDIOVASCULAR: S1 and S2 present. No murmurs, rubs, or gallops. PULMONARY: Chest is clear to auscultation, no wheezing or crackles. ABDOMEN: Soft, nontender, nondistended, normoactive bowel sounds. No palpable or ganomegaly. MUSCULOSKELETAL: No joint swelling or deformity. EXTREMITIES: No cyanosis, clubbing, or pedal edema. NEUROLOGICAL: Gross neurological examination did not reveal any focal deficits. SKIN: No rashes. - Labs CBC & Chem 7: 09/01/18 09:18 09/01/18 09:18 Labs: Abnormal Lab Results - Last 24 Hours (Table) 09/01/18 09/01/18 Range/Units 09:18 09:18 WBC 0.6 L* (3.8-10.6) k/uL RBC 2.66 L (4.30-5.90) m/uL Hgb 7.7 L (13.0-17.5) gm/dL Hct 23.7 L (39.0-53.0) % Plt Count 10 L* (150-450) k/uL Sodium 136 L (137-145) mmol/L Chloride 111 H (98-107) mmol/L Carbon Dioxide 18 L (22-30) mmol/L Glucose 132 H (74-99) mg/dL Calcium 7.2 L (8.4-10.2) mg/dL Total Bilirubin 2.1 H (0.2-1.3) mg/dL Alkaline Phosphatase 340 H (38-126) U/L Total Protein 4.4 L (6.3-8.2) g/dL Albumin 2.1 L (3.5-5.0) g/dL Microbiology - Last 24 Hours (Table) 08/30/18 20:05 Blood Culture - Preliminary Blood No Growth after 24 hours 08/30/18 19:55 Blood Culture - Preliminary Blood No Growth after 24 hours Assessment and Plan Assessment: Generalized weakness Hypotension and tachycardia Severe anemia Acute myelogenous leukemia, on oral chemotherapy Pancytopenia, secondary to above Fever, with neutropenia, on broad spectum antibiotic. Possible pneumonia, hospital-acquired, on chest x-ray from 08/30/2018. Elevated liver function tests, improving gradually Generalized weakness. Improving history of Congestive heart failure - chronic systolic with ejection fraction of 35%-not in exacerbation recent Sustained V. tach - possibily due to hypomagnesemia, Heart rate is stable currently Plan: This is a pleasant 62 years old male presents with weakness, hypertension, related to his AML disease, pancytopenia and possible pneumonia versus lung metastases. We'll call oncology and infectious disease consult. continue with antibioitic , Transfuse blood as needed to keep hemoglobin more than 7. Continue on bleeding precautions for his thrombocytopenia and no heparin for DVT prophylaxis. 50 monitor the patient closely.Labs and medication were reviewed.. Continue same treatment. Continue with symptomatic treatment. Resume home med ication. Monitor lytes and vitals. DVT and GI prophylaxis. Further recommendations of the clinical course of the patient DVT prophylaxis: No heparin in view of thrombocytopenia GI Prophylaxis: Ppi PT/OT: Pending Prognosis is guarded
[2018-09-01] MEDS: MAG HYDROX/AL HYDROX/SIMETH 30 ML, LIDOCAINE VISCOUS 30 ML, diphenhydrAMINE ELIXIR 75 M... PO SCH ×12 (13:21→21:53)
--- NOTE | 2018-09-01 14:14 | P.PN ---
Subjective Progress Note Date: 09/01/18 Principal diagnosis: AML CBC stable no transfusions required today, likely in am though. Then may possibe be ready for discharge if afebrile and no growth on cultures. Objective - Vital Signs Vital signs: Vital Signs Temp 98.7 F 09/01/18 12:11 Pulse 122 H 09/01/18 12:11 Resp 16 09/01/18 12:11 BP 98/57 09/01/18 12:11 Pulse Ox 97 09/01/18 12:11 Intake & Output 08/31/18 09/01/18 09/01/18 18:59 06:59 18:59 Intake Total 1000 990 Output Total 200 500 Balance 800 490 Weight 60.328 kg Intake: IV 200 400 Sodium Chloride 0.9% 1, 400 000 ml @ 50 mls/hr IV . Q20H [facility] Rx#:[id number] Intake, IV Titration 800 Amount Sodium Chloride 0.9% 1, 800 000 ml @ 50 mls/hr IV . Q20H [facility] Rx#:[id number] Oral 590 Output: Urine 200 500 Other: Voiding Method Diaper Diaper Incontinent Incontinent # Voids 1 3 - Exam - Constitutional General appearance: no acute distress - EENT Evidence of old blood in nares bilaterally Eyes: edentulous, EOMI, PERRLA ENT: hearing grossly normal, pharyngeal erythema - Neck Neck: no lymphadenopathy Thyroid: bilateral: normal size - Respiratory Respiratory: bilateral: CTA - Cardiovascular Rhythm: regular Heart sounds: normal: S1, S2 - Gastrointestinal General gastrointestinal: normal bowel sounds, soft - Integumentary Integumentary: normal - Neurologic Neurologic: CNII-XII intact - Musculoskeletal Musculoskeletal: generalized weakness, strength equal bilaterally - Psychiatric Psychiatric: A&O x's 3, appropriate affect - Labs CBC & Chem 7: 09/01/18 09:18 09/01/18 09:18 Labs: Abnormal Lab Results - Last 24 Hours (Table) 09/01/18 09/01/18 Range/Units 09:18 09:18 WBC 0.6 L* (3.8-10.6) k/uL RBC 2.66 L (4.30-5.90) m/uL Hgb 7.7 L (13.0-17.5) gm/dL Hct 23.7 L (39.0-53.0) % Plt Count 10 L* (150-450) k/uL Sodium 136 L (137-145) mmol/L Chloride 111 H (98-107) mmol/L Carbon Dioxide 18 L (22-30) mmol/L Glucose 132 H (74-99) mg/dL Calcium 7.2 L (8.4-10.2) mg/dL Total Bilirubin 2.1 H (0.2-1.3) mg/dL Alkaline Phosphatase 340 H (38-126) U/L Total Protein 4.4 L (6.3-8.2) g/dL Albumin 2.1 L (3.5-5.0) g/dL Microbiology - Last 24 Hours (Table) 08/30/18 20:05 Blood Culture - Preliminary Blood No Growth after 24 hours 08/30/18 19:55 Blood Culture - Preliminary Blood No Growth after 24 hours Assessment and Plan Plan: Pancytopenia - Secondary to underlying leukemia, which unfortunetly he has failed initial induction therapy - Blast Count today 86% - This will continue to worsen if his AML does not respond to therapy with re- induction - Daily CBC and Supportive irradiated transfusions at this time - Treatment of active infections and prophylaxis for Viral and fungal - Keep Platelet count greater than 10, and hemoglobin greater than 7 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 - Failed induction chemotherapy - Continue on chemo daily - In the interim will continue supportive care Weakness - Progressive weakness and possibly some shortness of breath and confusion was the presenting complaint this time. - This could be due to his cytopenias. In addition to supportive transfusions, infection will need to be ruled out. - If cardiac etiology. Unfortunately, he is not a candidate for any aggressive cardiac intervention, including any type of anticoagulation or antiplatelet therapies due to his severe thrombocytopenia. Therefore his prognosis from the cardiac standpoint is very guarded. Tachycardia: - Reactive - TMS - Monitor PLAN: Await Bone Marrow Biopsy results from 08/30/18 Ok to discharge prior as long as no growth in cultures and afebrile - will have Q2 day CBC check for transfusion checks in office CBC in am and likely irradiated platlet transfusion.
[2018-09-01] MEDS ORDERED: MAG HYDROX/AL HYDROX/SIMETH 30 ML, LIDOCAINE VISCOUS 30 ML, diphenhydrAMINE ELIXIR 75 M... PO SCH ×4 (16:00)
[2018-09-01] MEDS: traMADol 50 MG TAB PO PRN (17:43)
[2018-09-02] MEDS: MAG HYDROX/AL HYDROX/SIMETH 30 ML, LIDOCAINE VISCOUS 30 ML, diphenhydrAMINE ELIXIR 75 M... PO SCH ×16 (05:03→20:31)
[2018-09-02] MEDS: DEXAMETHASONE ORAL 4 MG/ML VIAL PO SCH ×4 (05:03→23:08)
[2018-09-02] MEDS: traMADol 50 MG TAB PO PRN (05:31)
[2018-09-02 07:20] LABS: HCT 21.8 % (39.0-53.0); MCH 28.7 pg (25.0-35.0); MCHC 32.1 g/dL (31.0-37.0); MCV 89.2 fL (80.0-100.0); Mean Platelet Volume 7.8; RBC 2.44 m/uL (4.30-5.90); RDW 15.2 % (11.5-15.5)
[2018-09-02 07:21] LABS: Platelet Count 6 k/uL (150-450); WBC 0.9 k/uL (3.8-10.6)
[2018-09-02 08:00] LABS: African American GFR (CKD) >90 (>60 ml/min/1.73 sqM); Anion Gap 6 mmol/L; Blood Urea Nitrogen 12 mg/dL (9-20); Calcium 7.4 mg/dL (8.4-10.2); Carbon Dioxide 20 mmol/L (22-30); Chloride 111 mmol/L (98-107); Glucose 132 mg/dL (74-99); Magnesium 1.8 mg/dL (1.6-2.3); Potassium 4.1 mmol/L (3.5-5.1); Sodium 137 mmol/L (137-145)
[2018-09-02] MEDS: ATORVASTATIN 80 MG TAB PO SCH (08:15)
[2018-09-02] MEDS: PANTOPRAZOLE 40 MG/10 ML VIAL IV SCH (08:15)
[2018-09-02] MEDS: ALLOPURINOL 300 MG TAB PO SCH (08:15)
[2018-09-02] MEDS: POTASSIUM CHLORIDE ER 20 MEQ TAB.ER PO SCH ×2 (08:15→20:30)
[2018-09-02] MEDS: ACYCLOVIR 200 MG CAP PO SCH ×2 (08:15→20:30)
[2018-09-02] MEDS: FERROUS SULFATE 325 MG TAB PO SCH ×3 (08:16→20:31)
[2018-09-02] MEDS: FOLIC ACID 1 MG TAB PO SCH (08:16)
[2018-09-02 08:32] LABS: Poikilocytosis (M) Present
--- NOTE | 2018-09-02 10:06 | P.PN ---
Subjective This is a pleasant 62 years old male with past medical history of acute myelocytic leukemia, on chemotherapy, generalized weakness and congestive heart failure with with ejection fraction of 35%. Nonsustained V. tach. Patient was recently discharged from the hospital about 10 days ago where he has prolonged hospital course with pancytopenia, episodic fever, mainly low-grade. And generalized weakness. Patient was sent to the hospital and emergency room, advised by his oncologist. pt presents because he is been feeling weak, with coughing and bloody colored phlegm, however he denies chest pain or dyspnea , no abd pain , no diarrhea , no change in mental status or dizziness, and no urinary complaints On admission his blood pressure was in the low size 65/46. And 93/63. Tachycardia of 110-112. Respiratory to what 16/m and is saturating 96% on room air. With no fever on admission Labs showing pancytopenia with WBC of 0.8, hemoglobin 6.3, platelets 8. INR 1.3. Creatinine 1.29, sodium 135, glucose 122, bilirubin 1.9 and liver enzymes slightly elevated 120 to 150s. EKG showing sinus tachycardia at 120 BPM with QTC 505. Chest x-ray showing new masslike consolidation of the right lower lobe, suspicious for pneumonia d/w staff , pt is going to receive one unit of blood transfusion 08/31/2018 Patient today is awake and oriented, clinically looks similar to yesterday however his patellar has improved significantly. Patient was hypotensive overnight and needed 1 L of normal saline bolus. His blood pressure improved today and was on 2/58 and 107/65. Patient is running fever at 101.5 today. Risks of vitals are stable and he saturated 100% on room air. Patient still have some coughing with blood colored sputum. Labs still showing pancytopenia with improvement of hemoglobin up to 7.3. However WBC 0.5 and platelet 18. INR 1.4. Creatinine is within normal limits. Serum bilirubin and liver enzymes are mildly elevated but stable. Urinalysis is not suspicious of infection. Patient currently on meropenem, acyclovir and normal saline at 100 mL per hour 09/01/2018 Patient clinically the same with feeling generally weak but his cough and hemoptysis is significantly improved. No chest pain. His breathing quietly. He saturating 97% on room air. No change in her bowel habits or diarrhea. However patient has difficulty eating because of sores in his mouth. We ordered nystatin-call swish and spit for him. Bone marrow biopsy is still pending. 09/02/2018 Patient is alert, lying feeling generally weak and base. This allows some cough but no much phlegm or hemoptysis. No chest pain. Patient is tachycardic at 04/04/2039. Blood pressure on the low side. We'll give him blood transfusion and EKG. WBC 0.9, hemoglobin 7.0 and platelets 6. Also will get that radiated platelet transfusion. Creatinine 0.7 and electrolytes are within normal limits. Objective - Vital Signs Vital signs: Vital Signs Temp 98.0 F 09/02/18 05:00 Pulse 130 H 09/02/18 05:00 Resp 16 09/02/18 05:00 BP 92/58 09/02/18 05:00 Pulse Ox 93 L 09/02/18 05:00 Intake & Output 09/01/18 09/02/18 09/02/18 18:59 06:59 18:59 Intake Total 600 2270 Output Total 400 Balance 600 1870 Intake: IV 400 550 Sodium Chloride 0.9% 1, 400 550 000 ml @ 50 mls/hr IV . Q20H [facility] Rx#:[id number] Intake, IV Titration 200 200 Amount Meropenem 1 gm In Sodium 200 200 Chloride 0.9% 100 ml @ 200 mls/hr IVPB Q12H [facility] Rx#:[id number] Oral 1520 Output: Urine 400 Other: Voiding Method Diaper Diaper Diaper Incontinent Incontinent Incontinent # Voids 3 # Bowel Movements 2 0 - Exam -GENERAL: The patient is alert and oriented x3, not in any acute distress. he is cachectic HEENT: Pupils are round and equally reacting to light. EOMI. No scleral icterus. No conjunctival pallor. Normocephalic, atraumatic. No pharyngeal erythema. No thyromegaly. CARDIOVASCULAR: S1 and S2 present. No murmurs, rubs, or gallops. PULMONARY: Chest is clear to auscultation, no wheezing or crackles. ABDOMEN: Soft, nontender, nondistended, normoactive bowel sounds. No palpable organomegaly. MUSCULOSKELETAL: No joint swelling or deformity. EXTREMITIES: No cyanosis, clubbing, or pedal edema. NEUROLOGICAL: Gross neurological examination did not reveal any focal deficits. SKIN: No rashes. - Labs CBC & Chem 7: 09/02/18 06:45 09/02/18 06:45 Labs: Abnormal Lab Results - Last 24 Hours (Table) 09/01/18 09/01/18 09/02/18 Range/Units 09:18 09:18 06:45 WBC 0.6 L* 0.9 L* (3.8-10.6) k/uL RBC 2.66 L 2.44 L (4.30-5.90) m/uL Hgb 7.7 L 7.0 L (13.0-17.5) gm/dL Hct 23.7 L 21.8 L (39.0-53.0) % Plt Count 10 L* 6 L* (150-450) k/uL Sodium 136 L (137-145) mmol/L Chloride 111 H (98-107) mmol/L Carbon Dioxide 18 L (22-30) mmol/L Glucose 132 H (74-99) mg/dL Calcium 7.2 L (8.4-10.2) mg/dL Total Bilirubin 2.1 H (0.2-1.3) mg/dL Alkaline Phosphatase 340 H (38-126) U/L Total Protein 4.4 L (6.3-8.2) g/dL Albumin 2.1 L (3.5-5.0) g/dL 09/02/18 Range/Units 06:45 WBC (3.8-10.6) k/uL RBC (4.30-5.90) m/uL Hgb (13.0-17.5) gm/dL Hct (39.0-53.0) % Plt Count (150-450) k/uL Sodium (137-145) mmol/L Chloride 111 H (98-107) mmol/L Carbon Dioxide 20 L (22-30) mmol/L Glucose 132 H (74-99) mg/dL Calcium 7.4 L (8.4-10.2) mg/dL Total Bilirubin (0.2-1.3) mg/dL Alkaline Phosphatase (38-126) U/L Total Protein (6.3-8.2) g/dL Albumin (3.5-5.0) g/dL Microbiology - Last 24 Hours (Table) 06/10/19 20:05 Blood Culture - Preliminary Blood No Growth after 48 hours 08/30/18 19:55 Blood Culture - Preliminary Blood No Growth after 48 hours Assessment and Plan Assessment: Generalized weakness Hypotension and tachycardia Severe anemia Acute myelogenous leukemia, on oral chemotherapy Pancytopenia, secondary to above Fever, with neutropenia, on broad spectum antibiotic. Possible pneumonia, hospital-acquired, on chest x-ray from 08/30/2018. Elevated liver function tests, improving gradually Generalized weakness. Improving history of Congestive heart failure - chronic systolic with ejection fraction of 35%-not in exacerbation recent Sustained V. tach - possibily due to hypomagnesemia, Heart rate is stable currently Plan: This is a pleasant 62 years old male presents with weakness, hypertension, related to his AML disease, pancytopenia and possible pneumonia versus lung metastases. We'll call oncology and infectious disease consult. continue with antibioitic , Transfuse blood as needed to keep hemoglobin more than 7. Continue on bleeding precautions for his thrombocytopenia and no heparin for DVT prophylaxis. 50 monitor the patient closely.Labs and medication were reviewed.. Continue same treatment. Continue with symptomatic treatment. Resume home me dication. Monitor lytes and vitals. DVT and GI prophylaxis. Further recommendations of the clinical course of the patient DVT prophylaxis: No heparin in view of thrombocytopenia GI Prophylaxis: Ppi PT/OT: Pending Prognosis is guarded
[2018-09-02] MEDS: MEROPENEM 1 GM in SODIUM CHLORIDE 0.9% 100 ML IVPB SCH ×2 (13:12→23:48)
--- NOTE | 2018-09-02 17:40 | P.PN ---
Subjective Progress Note Date: 09/02/18 Principal diagnosis: AML platlets 6 no signs of bleeding, transfuse Objective - Vital Signs Vital signs: Vital Signs Temp 97.5 F L 09/02/18 16:30 Pulse 133 H 09/02/18 16:30 Resp 16 09/02/18 16:00 BP 118/73 09/02/18 16:30 Pulse Ox 96 09/02/18 16:00 Intake & Output 09/01/18 09/02/18 09/02/18 18:59 06:59 18:59 Intake Total 600 2270 1127 Output Total 400 Balance 600 1870 1127 Intake: IV 400 550 400 Sodium Chloride 0.9% 1, 400 550 400 000 ml @ 50 mls/hr IV . Q20H [facility] Rx#:[id number] Intake, IV Titration 200 200 100 Amount Meropenem 1 gm In Sodium 200 200 100 Chloride 0.9% 100 ml @ 200 mls/hr IVPB Q12H [facility] Rx#:[id number] Oral 1520 Blood Product 627 Platelet Irr Pheresis 307 Acda1 Unit [id number] Rc Irr As1 Unit 0 [id number] Output: Urine 400 Other: Voiding Method Diaper Diaper Diaper Incontinent Incontinent Incontinent # Voids 3 # Bowel Movements 2 0 - Exam - Constitutional General appearance: no acute distress - EENT Evidence of old blood in nares bilaterally Eyes: edentulous, EOMI, PERRLA ENT: hearing grossly normal, pharyngeal erythema - Neck Neck: no lymphadenopathy Thyroid: bilateral: normal size - Respiratory Respiratory: bilateral: CTA - Cardiovascular Rhythm: regular Heart sounds: normal: S1, S2 - Gastrointestinal General gastrointestinal: normal bowel sounds, soft - Integumentary Integumentary: normal - Neurologic Neurologic: CNII-XII intact - Musculoskeletal Musculoskeletal: generalized weakness, strength equal bilaterally - Psychiatric Psychiatric: A&O x's 3, appropriate affect - Labs CBC & Chem 7: 09/02/18 06:45 09/02/18 06:45 Labs: Abnormal Lab Results - Last 24 Hours (Table) 08/30/18 09/02/18 09/02/18 Range/Units 14:45 06:45 06:45 WBC 0.9 L* (3.8-10.6) k/uL RBC 2.44 L (4.30-5.90) m/uL Hgb 7.0 L (13.0-17.5) gm/dL Hct 21.8 L (39.0-53.0) % Plt Count 6 L* (150-450) k/uL Chloride 111 H (98-107) mmol/L Carbon Dioxide 20 L (22-30) mmol/L Glucose 132 H (74-99) mg/dL Calcium 7.4 L (8.4-10.2) mg/dL Crossmatch See Detail Microbiology - Last 24 Hours (Table) 08/30/18 20:05 Blood Culture - Preliminary Blood No Growth after 48 hours 08/30/18 19:55 Blood Culture - Preliminary Blood No Growth after 48 hours Assessment and Plan Plan: Pancytopenia - Secondary to underlying leukemia, which unfortunetly he has failed initial induction therapy - Blast Count today 86% - This will continue to worsen if his AML does not respond to therapy with re- induction - Daily CBC and Supportive irradiated transfusions at this time - Treatment of active infections and prophylaxis for Viral and fungal - Keep Platelet count greater than 10, and hemoglobin greater than 7 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 - Failed induction chemotherapy - Continue on chemo daily - In the interim will continue supportive care Weakness - Progressive weakness and possibly some shortness of breath and confusion was the presenting complaint this time. - This could be due to his cytopenias. In addition to supportive transfusions, infection will need to be ruled out. - If cardiac etiology. Unfortunately, he is not a candidate for any aggressive cardiac intervention, including any type of anticoagulation or antiplatelet therapies due to his severe thrombocytopenia. Therefore his prognosis from the cardiac standpoint is very guarded. Tachycardia: - Reactive - TMS - Monitor PLAN: Await Bone Marrow Biopsy results from 08/30/18 Transfuse platlets today and may go home after if afebrile.
[2018-09-02] MEDS ORDERED: MAGNESIUM SULFATE-D5W PMX 1 GM in DEXTROSE/WATER 1 100ML.BAG IVPB ONE (18:28)
[2018-09-02] MEDS: SODIUM CHLORIDE 0.9% 1,000 ML IV SCH (19:28)
[2018-09-02] MEDS: ACETAMINOPHEN TAB 500 MG TAB PO PRN (20:29)
[2018-09-03] MEDS: MAG HYDROX/AL HYDROX/SIMETH 30 ML, LIDOCAINE VISCOUS 30 ML, diphenhydrAMINE ELIXIR 75 M... PO SCH ×16 (05:14→23:23)
[2018-09-03] MEDS: DEXAMETHASONE ORAL 4 MG/ML VIAL PO SCH ×4 (05:14→23:23)
[2018-09-03] MEDS ORDERED: PANTOPRAZOLE 40 MG TABLET PO SCH (09:00)
[2018-09-03 09:05] LABS: HCT 29.7 % (39.0-53.0); MCH 29.4 pg (25.0-35.0); MCHC 32.7 g/dL (31.0-37.0); Mean Platelet Volume 6.6; RBC 3.29 m/uL (4.30-5.90); RDW 15.5 % (11.5-15.5); WBC 3.2 k/uL (3.8-10.6)
[2018-09-03 09:20] LABS: HGB 9.7 gm/dL (13.0-17.5); Platelet Count 20 k/uL (150-450)
[2018-09-03] MEDS: ACYCLOVIR 200 MG CAP PO SCH ×2 (09:50→20:24)
[2018-09-03] MEDS: POTASSIUM CHLORIDE ER 20 MEQ TAB.ER PO SCH ×2 (09:50→20:24)
[2018-09-03] MEDS: ALLOPURINOL 300 MG TAB PO SCH (09:50)
[2018-09-03] MEDS: ATORVASTATIN 80 MG TAB PO SCH (09:50)
[2018-09-03] MEDS: FERROUS SULFATE 325 MG TAB PO SCH ×3 (09:50→20:24)
[2018-09-03] MEDS: FOLIC ACID 1 MG TAB PO SCH (09:51)
[2018-09-03 09:54] LABS: African American GFR (CKD) >90 (>60 ml/min/1.73 sqM); Anion Gap 9 mmol/L; Blood Urea Nitrogen 13 mg/dL (9-20); Calcium 7.5 mg/dL (8.4-10.2); Carbon Dioxide 18 mmol/L (22-30); Chloride 109 mmol/L (98-107); Glucose 113 mg/dL (74-99); Magnesium 1.8 mg/dL (1.6-2.3); Potassium 4.2 mmol/L (3.5-5.1); Sodium 136 mmol/L (137-145)
[2018-09-03 11:50] LABS: Band Neutrophils % 1 %; Lymphocytes # (M) 0.51 k/uL (1.0-4.8); Monocytes # (M) 1.79 k/uL (0-1.0); Myelocytes # (M) 0.03 k/uL (0); Myelocytes % 1 %; Neutrophils % (M) 23 %
[2018-09-03 11:56] LABS: Blast Cells # (M) 0.16 k/uL (0); Nucleated Red Blood Cells 0 /100 WBC (0-0); Total Cells Counted 200
[2018-09-03] MEDS: MEROPENEM 1 GM in SODIUM CHLORIDE 0.9% 100 ML IVPB SCH ×2 (13:10→23:29)
[2018-09-03] MEDS: SODIUM CHLORIDE 0.9% 1,000 ML IV SCH (13:20)
--- NOTE | 2018-09-03 13:29 | P.PN ---
Subjective This is a pleasant 62 years old male with past medical history of acute myelocytic leukemia, on chemotherapy, generalized weakness and congestive heart failure with with ejection fraction of 35%. Nonsustained V. tach. Patient was recently discharged from the hospital about 10 days ago where he has prolonged hospital course with pancytopenia, episodic fever, mainly low-grade. And generalized weakness. Patient was sent to the hospital and emergency room, advised by his oncologist. pt presents because he is been feeling weak, with coughing and bloody colored phlegm, however he denies chest pain or dyspnea , no abd pain , no diarrhea , no change in mental status or dizziness, and no urinary complaints On admission his blood pressure was in the low size 65/46. And 93/63. Tachycardia of 110-112. Respiratory to what 16/m and is saturating 96% on room air. With no fever on admission Labs showing pancytopenia with WBC of 0.8, hemoglobin 6.3, platelets 8. INR 1.3. Creatinine 1.29, sodium 135, glucose 122, bilirubin 1.9 and liver enzymes slightly elevated 120 to 150s. EKG showing sinus tachycardia at 120 BPM with QTC 505. Chest x-ray showing new masslike consolidation of the right lower lobe, suspicious for pneumonia d/w staff , pt is going to receive one unit of blood transfusion 08/31/2018 Patient today is awake and oriented, clinically looks similar to yesterday however his patellar has improved significantly. Patient was hypotensive overnight and needed 1 L of normal saline bolus. His blood pressure improved today and was on 2/58 and 107/65. Patient is running fever at 101.5 today. Risks of vitals are stable and he saturated 100% on room air. Patient still have some coughing with blood colored sputum. Labs still showing pancytopenia with improvement of hemoglobin up to 7.3. However WBC 0.5 and platelet 18. INR 1.4. Creatinine is within normal limits. Serum bilirubin and liver enzymes are mildly elevated but stable. Urinalysis is not suspicious of infection. Patient currently on meropenem, acyclovir and normal saline at 100 mL per hour 09/01/2018 Patient clinically the same with feeling generally weak but his cough and hemoptysis is significantly improved. No chest pain. His breathing quietly. He saturating 97% on room air. No change in her bowel habits or diarrhea. However patient has difficulty eating because of sores in his mouth. We ordered nystatin-call swish and spit for him. Bone marrow biopsy is still pending. 09/02/2018 Patient is alert, lying feeling generally weak and base. This allows some cough but no much phlegm or hemoptysis. No chest pain. Patient is tachycardic at 04/04/2039. Blood pressure on the low side. We'll give him blood transfusion and EKG. WBC 0.9, hemoglobin 7.0 and platelets 6. Also will get that radiated platelet transfusion. Creatinine 0.7 and electrolytes are within normal limits. 09/03/2018 Patient is alert, generally weak similar to his baseline over the last few weeks. Distal cuff and with no hemoptysis which was resolved since admission. No pain in the abdomen or chest. Patient remains tachycardic at 04/16/2032, despite one blood transfusion yesterday. His blood pressure improved slightly after the . Patient is afebrile for more than 48 hours. WBC today is 3.2, hemoglobin 9.7, platelets are still pending. Creatinine 0.6. EKG was ordered. Patient currently on meropenem and acyclovir for febrile neutropenia and possible pneumonia, infectious disease team evaluated the patient. Continue gentle hydration. Case was discussed with oncology team as well. He had bone Nielsen biopsy done during this admission and result is pending Objective - Vital Signs Vital signs: Vital Signs Temp 98.2 F 09/03/18 12:51 Pulse 125 H 09/03/18 05:00 Resp 18 09/03/18 12:51 BP 97/58 09/03/18 12:51 Pulse Ox 95 09/03/18 12:51 Intake & Output 09/02/18 09/03/18 09/03/18 18:59 06:59 18:59 Intake Total 1437 600 Balance 1437 600 Weight 60.328 kg Intake: IV 400 300 Sodium Chloride 0.9% 1, 400 300 000 ml @ 50 mls/hr IV . Q20H [facility] Rx#:[id number] Intake, IV Titration 100 100 Amount Magnesium Sulfate-D5w Pmx 100 1 gm In Dextrose/Water 1 100ml.bag @ 100 mls/hr IVPB ONCE ONE Rx#: [id number] Meropenem 1 gm In Sodium 100 Chloride 0.9% 100 ml @ 200 mls/hr IVPB Q12H [facility] Rx#:[id number] Oral 200 Blood Product 937 Platelet Irr Pheresis 307 Acda1 Unit [id number] Rc Irr As1 Unit 310 [id number] Other: Voiding Method Diaper Diaper Diaper Incontinent Incontinent Incontinent # Voids 2 # Bowel Movements 1 - Exam -GENERAL: The patient is alert and oriented x3, not in any acute distress. he is cachectic HEENT: Pupils are round and equally reacting to light. EOMI. No scleral icterus. No conjunctival pallor. Normocephalic, atraumatic. No pharyngeal erythema. No thyromegaly. CARDIOVASCULAR: S1 and S2 present. No murmurs, rubs, or gallops. PULMONARY: Chest is clear to auscultation, no wheezing or crackles. ABDOMEN: Soft, nontender, nondistended, normoactive bowel sounds. No palpable organomegaly. MUSCULOSKELETAL: No joint swelling or deformity. EXTREMITIES: No cyanosis, clubbing, or pedal edema. NEUROLOGICAL: Gross neurological examination did not reveal any focal deficits. SKIN: No rashes. - Labs CBC & Chem 7: 09/03/18 08:22 09/03/18 08:22 Labs: Abnormal Lab Results - Last 24 Hours (Table) 08/30/18 09/03/18 09/03/18 Range/Units 14:45 08:22 08:22 WBC 3.2 L (3.8-10.6) k/uL RBC 3.29 L (4.30-5.90) m/uL Hgb 9.7 L D (13.0-17.5) gm/dL Hct 29.7 L (39.0-53.0) % Sodium 136 L (137-145) mmol/L Chloride 109 H (98-107) mmol/L Carbon Dioxide 18 L (22-30) mmol/L Creatinine 0.65 L (0.66-1.25) mg/dL Glucose 113 H (74-99) mg/dL Calcium 7.5 L (8.4-10.2) mg/dL Crossmatch See Detail Microbiology - Last 24 Hours (Table) 08/30/18 20:05 Blood Culture - Preliminary Blood No Growth after 72 hours 08/30/18 19:55 Blood Culture - Preliminary Blood No Growth after 72 hours Assessment and Plan Assessment: Generalized weakness Hypotension and tachycardia Severe anemia Acute myelogenous leukemia, on oral chemotherapy Pancytopenia, secondary to above Fever, with neutropenia, on broad spectum antibiotic. Possible pneumonia, hospital-acquired, on chest x-ray from 08/30/2018. Elevated liver function tests, improving gradually Generalized weakness. Improving history of Congestive heart failure - chronic systolic with ejection fraction of 35%-not in exacerbation recent Sustained V. tach - possibily due to hypomagnesemia, Heart rate is stable currently Plan: This is a pleasant 62 years old male presents with weakness, hypertension, related to his AML disease, pancytopenia and possible pneumonia versus lung metastases. We'll call oncology and infectious disease consult. continue with antibioitic , Transfuse blood as needed to keep hemoglobin more than 7. Continue on bleeding precautions for his thrombocytopenia and no heparin for DVT prophylaxis. 50 monitor the patient closely.Labs and medication were reviewed.. Continue same treatment. Continue with symptomatic treatment. Resume home medication. Monitor lytes and vitals. DVT and GI prophylaxis. Further recommendations of the clinical course of the patient DVT prophylaxis: No heparin in view of thrombocytopenia GI Prophylaxis: Ppi PT/OT: Pending Prognosis is guarded
[2018-09-03 14:19] LABS: Anisocytosis (M) Present
[2018-09-03] MEDS: traMADol 50 MG TAB PO PRN (17:28)
[2018-09-03] MEDS ORDERED: METOPROLOL TARTRATE 12.5 MG TAB PO STA (17:41)
--- NOTE | 2018-09-03 18:19 | XR ---
EXAMINATION: XR chest 1V DATE AND TIME: 09/03/2018 6:06 PM CLINICAL INDICATION: PHH; Abnormal exam TECHNIQUE: Departmental protocol COMPARISON: Chest radiograph 30 August 2018 FINDINGS: Right IJ Port-A-Cath tip superimposed over the distal SVC, unchanged. No pneumothorax or other abnormal gas collection. The previously seen lateral segment right middle lobe consolidation has increased considerably since the prior study and is now accompanied with a new moderate right pleural effusion. This pleural effus ion is associated with passive atelectasis of proximally a quarter of the right lung parenchyma. Mediastinum remains at the midline. Left lung is clear and well-expanded. Left pleural spaces negative. No acute skeletal or soft tissue findings. IMPRESSION: Interval worsening in the right lung inflation pattern, and with new right pleural effusion.
--- NOTE | 2018-09-03 21:36 | P.PN ---
Subjective Progress Note Date: 09/03/18 Principal diagnosis: AML platlets pending, blasts on CBC today. He is congested, weak Objective - Vital Signs Vital signs: Vital Signs Temp 98.9 F 09/03/18 20:14 Pulse 132 H 09/03/18 20:14 Resp 16 09/03/18 20:14 BP 100/65 09/03/18 20:14 Pulse Ox 98 09/03/18 20:14 Intake & Output 09/03/18 09/03/18 09/04/18 06:59 18:59 06:59 Intake Total 600 Output Total 800 Balance 600 -800 Weight 60.328 kg Intake: IV 300 Sodium Chloride 0.9% 1, 300 000 ml @ 50 mls/hr IV . Q20H [facility] Rx#:[id number] Intake, IV Titration 100 Amount Magnesium Sulfate-D5w Pmx 100 1 gm In Dextrose/Water 1 100ml.bag @ 100 mls/hr IVPB ONCE ONE Rx#: [id number] Oral 200 Output: Urine 800 Other: Voiding Method Diaper Diaper Incontinent Incontinent # Voids 2 1 # Bowel Movements 1 - Exam - Constitutional General appearance: no acute distress - EENT Evidence of old blood in nares bilaterally Eyes: edentulous, EOMI, PERRLA ENT: hearing grossly normal, pharyngeal erythema - Neck Neck: no lymphadenopathy Thyroid: bilateral: normal size - Respiratory Respiratory: bilateral: CTA - Cardiovascular Rhythm: regular Heart sounds: normal: S1, S2 - Gastrointestinal General gastrointestinal: normal bowel sounds, soft - Integumentary Integumentary: normal - Neurologic Neurologic: CNII-XII intact - Musculoskeletal Musculoskeletal: generalized weakness, strength equal bilaterally - Psychiatric Psychiatric: A&O x's 3, appropriate affect - Labs CBC & Chem 7: 09/03/18 08:22 09/03/18 08:22 Labs: Abnormal Lab Results - Last 24 Hours (Table) 09/03/18 09/03/18 09/03/18 Range/Units 08:22 08:22 17:58 WBC 3.2 L (3.8-10.6) k/uL RBC 3.29 L (4.30-5.90) m/uL Hgb 9.7 L D (13.0-17.5) gm/dL Hct 29.7 L (39.0-53.0) % Plt Count 20 L D (150-450) k/uL Blast Cells % 5 H* % Neutrophils # (Manual) 0.70 L (1.3-7.7) k/uL Lymphocytes # (Manual) 0.51 L (1.0-4.8) k/uL Monocytes # (Manual) 1.79 H (0-1.0) k/uL Myelocytes # (Manual) 0.03 H (0) k/uL Blast Cells # (Man) 0.16 H (0) k/uL Sodium 136 L (137-145) mmol/L Chloride 109 H (98-107) mmol/L Carbon Dioxide 18 L (22-30) mmol/L Creatinine 0.65 L (0.66-1.25) mg/dL Glucose 113 H (74-99) mg/dL Calcium 7.5 L (8.4-10.2) mg/dL Troponin I 0.036 H* (0.000-0.034) ng/mL Microbiology - Last 24 Hours (Table) 08/30/18 20:05 Blood Culture - Preliminary Blood No Growth after 72 hours 08/30/18 19:55 Blood Culture - Preliminary Blood No Growth after 72 hours Assessment and Plan Plan: Pancytopenia - Secondary to underlying leukemia, which unfortunetly he has failed initial induction therapy - Blast Count today 86% - This will continue to worsen if his AML does not respond to therapy with re- induction - Daily CBC and Supportive irradiated transfusions at this time - Treatment of active infections and prophylaxis for Viral and fungal - Keep Platelet count greater than 10, and hemoglobin greater than 7 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 - Failed induction chemotherapy - Continue on chemo daily - In the interim will continue supportive care Weakness - Progressive weakness and possibly some shortness of breath and confusion was the presenting complaint this time. - This could be due to his cytopenias. In addition to supportive transfusions, infection will need to be ruled out. - If cardiac etiology. Unfortunately, he is not a candidate for any aggressive cardiac intervention, including any type of anticoagulation or antiplatelet therapies due to his severe thrombocytopenia. Therefore his prognosis from the cardiac standpoint is very guarded. Tachycardia: - Reactive - TMS - Monitor PLAN: Stat Chest Xray as he is audible crackles COntinue Venclexta 400mg daily
[2018-09-03] MEDS: IPRATROPIUM-ALBUTEROL 3 ML NEB INHALATION PRN (23:23)
[2018-09-04] MEDS: traMADol 50 MG TAB PO PRN (02:01)
[2018-09-04] MEDS: FUROSEMIDE 10 MG/ML 4 ML VIAL IV SCH ×2 (04:40→16:26)
[2018-09-04] MEDS: MAG HYDROX/AL HYDROX/SIMETH 30 ML, LIDOCAINE VISCOUS 30 ML, diphenhydrAMINE ELIXIR 75 M... PO SCH ×12 (05:08→16:36)
[2018-09-04] MEDS: DEXAMETHASONE ORAL 4 MG/ML VIAL PO SCH ×3 (05:08→16:35)
[2018-09-04] MEDS ORDERED: FUROSEMIDE 10 MG/ML 2 ML VIAL IV ONE (05:49)
[2018-09-04] MEDS ORDERED: FUROSEMIDE 10 MG/ML 2 ML VIAL IV STA (05:53)
--- NOTE | 2018-09-04 07:07 | XR ---
EXAMINATION TYPE: XR chest 1V portable DATE OF EXAM: 09/04/2018 HISTORY: SoB. REFERENCE: Previous study dated 09/03/2018. FINDINGS: The right lung is largely opacified. This has worsened slightly from previous. Heart size i s obscured. The left lung is clear. IMPRESSION: WORSENING CONSOLIDATION OF THE RIGHT LUNG.
[2018-09-04 07:24] LABS: Glucose,Whole Blood 206 mg/dL (75-99)
[2018-09-04 07:29] LABS: ABG Base Excess -9.7 mmol/L; ABG HCO3 16 mmol/L (21-25); ABG Oxygen Saturation 89.3 % (94-97); ABG PCO2 27 mmHg (35-45); ABG PH 7.37 (7.35-7.45); ABG TCO2 16 mmol/L (19-24); Allen Test Performed? Yes
[2018-09-04 07:37] LABS: ABG PO2 55 mmHg (83-108)
[2018-09-04 07:59] LABS: Glucose,Whole Blood 226 mg/dL (75-99)
[2018-09-04 08:07] LABS: HCT 28.5 % (39.0-53.0); HGB 9.4 gm/dL (13.0-17.5); MCH 29.8 pg (25.0-35.0); MCHC 32.9 g/dL (31.0-37.0); MCV 90.5 fL (80.0-100.0); Mean Platelet Volume 7.5; RBC 3.14 m/uL (4.30-5.90); RDW 15.9 % (11.5-15.5); WBC 17.4 k/uL (3.8-10.6)
[2018-09-04 08:14] LABS: Platelet Count 19 k/uL (150-450)
[2018-09-04 08:27] LABS: African American GFR (CKD) >90 (>60 ml/min/1.73 sqM); Anion Gap 12 mmol/L; Blood Urea Nitrogen 17 mg/dL (9-20); Calcium 7.4 mg/dL (8.4-10.2); Carbon Dioxide 17 mmol/L (22-30); Chloride 109 mmol/L (98-107); Glucose 211 mg/dL (74-99); Magnesium 1.9 mg/dL (1.6-2.3); Phosphorus 2.9 mg/dL (2.5-4.5); Potassium 4.2 mmol/L (3.5-5.1); Sodium 138 mmol/L (137-145)
[2018-09-04] MEDS ORDERED: VANCOMYCIN IV PER PHARMACY 1 EACH MISC MISCELLANE PRN (08:54)
[2018-09-04] MEDS ORDERED: VENETOCLAX 400 MG PO SCH (09:00)
[2018-09-04 09:08] LABS: Lymphocytes # (M) 1.39 k/uL (1.0-4.8); Monocytes # (M) 13.92 k/uL (0-1.0)
[2018-09-04 09:09] LABS: Blast Cells # (M) 2.26 k/uL (0); Nucleated Red Blood Cells 0 /100 WBC (0-0); Total Cells Counted 200
[2018-09-04 09:11] LABS: Toxic Vacuolation Present
[2018-09-04 09:29] LABS: ABG Base Excess -11.5 mmol/L; ABG HCO3 15 mmol/L (21-25); ABG Oxygen Saturation 97.1 % (94-97); ABG PCO2 29 mmHg (35-45); ABG PH 7.32 (7.35-7.45); ABG PO2 103 mmHg (83-108); ABG TCO2 16 mmol/L (19-24); Allen Test Performed? Yes
[2018-09-04] MEDS: PROPOFOL 1,000 MG in EMPTY BAG 1 BAG IV SCH ×3 (09:30→18:21)
[2018-09-04] MEDS ORDERED: ANIDULAFUNGIN 200 MG in SODIUM CHLORIDE 0.9% 200 ML IVPB ONE (09:30)
--- NOTE | 2018-09-04 09:46 | XR ---
EXAMINATION TYPE: XR chest 1V portable DATE OF EXAM: 09/04/2018 HISTORY: ET tube placement, PNM. REFERENCE: Previous study dated 09/05/2018. FINDINGS: The patient has been intubated. ET tube is slightly low approximately 2.4 cm above the domonique na and should likely be withdrawn slightly. An NG tube has been placed and crosses the hemidiaphragm. It is not visualized. There is a moderate opacity at the right lung base. This is likely a combination of pleural fluid and airspace disease. Heart size is obscured. The left lung is clear. IMPRESSION: 1. SLIGHTLY LOW-LYING ET TUBE. THIS SHOULD BE WITHDRAWN APPROXIMATELY 2 INCHES. 2. CONTINUING OPACITY, RIGHT LUNG BASE.
[2018-09-04] MEDS ORDERED: SODIUM CHLORIDE 0.9% 1,000 ML IV ONE ×4 (09:48→11:13)
[2018-09-04] MEDS: VANCOMYCIN 1,000 MG in SODIUM CHLORIDE 0.9% 250 ML IVPB SCH ×2 (10:18→20:30)
[2018-09-04] MEDS: SODIUM CHLORIDE 0.9% 1,000 ML IV SCH ×2 (10:19→20:32)
[2018-09-04] MEDS ORDERED: SODIUM CHLORIDE 0.9% 500 ML 1,000 ML IV ONE (11:13)
[2018-09-04] MEDS ORDERED: AMIODARONE 360 MG in DEXTROSE 5% IN WATER 200 ML IV ONE ×2 (11:30)
[2018-09-04] MEDS ORDERED: DEXTROSE 5% IN WATER 100 ML with AMIODARONE 300 MG IV ONE (11:30)
[2018-09-04] MEDS ORDERED: NOREPINEPHRINE 32 MG in SODIUM CHLORIDE 0.9% 218 ML IV SCH (11:30)
[2018-09-04] MEDS: IPRATROPIUM-ALBUTEROL 3 ML NEB INHALATION PRN ×3 (11:43→19:23)
[2018-09-04] MEDS ORDERED: PANTOPRAZOLE 40 MG/10 ML VIAL IV SCH (12:00)
[2018-09-04] MEDS: FERROUS SULFATE ORAL ELIXIR 300 MG/5 ML CUP PO SCH ×3 (12:50→20:31)
[2018-09-04] MEDS: ACYCLOVIR 400 MG/10 ML CUP PO SCH ×2 (12:50→20:30)
[2018-09-04] MEDS: FOLIC ACID 1 MG TAB PO SCH (12:51)
--- NOTE | 2018-09-04 12:52 | P.PN ---
Subjective Progress Note Date: 09/04/18 The pt did develop increasing shortness of breath yesterday, with x-ray showing increasing opacity in the right lung base, pleural effusion versus consolidation or both. The patient deteriorated further, with development of A. fib with RVR. He had to be transferred to the ER and intubated. He is cu rrently on Levophed support. No obvious bleeding noted. Objective - Vital Signs Vital signs: Vital Signs Temp 97.8 F 09/04/18 05:00 Pulse 113 H 09/04/18 11:43 Resp 40 H 09/04/18 05:00 BP 129/71 09/04/18 05:00 Pulse Ox 88 L 09/04/18 05:00 Intake & Output 09/03/18 09/04/18 09/04/18 18:59 06:59 18:59 Output Total 800 Balance -800 Weight 60.328 kg Output: Urine 800 Other: Voiding Method Diaper Diaper Incontinent Incontinent # Voids 1 - Constitutional Constitutional Comment(s): sedated on vent. Increased RR General appearance: Present: mild distress - EENT EENT Comment(s): endotracheal tube in situ - Respiratory Respiratory: right: diminished - Cardiovascular Rhythm: irregularly irregular Heart sounds: normal: S1, S2 - Gastrointestinal General gastrointestinal: Present: decreased bowel sounds, soft - Integumentary Integumentary: Present: normal - Musculoskeletal Musculoskeletal: Present: generalized weakness - Psychiatric Psychiatric Comment(s): Sedated, on the vent - Labs CBC & Chem 7: 09/04/18 07:30 09/04/18 07:30 Labs: Abnormal Lab Results - Last 24 Hours (Table) 09/03/18 09/03/18 09/04/18 Range/Units 08:22 17:58 07:05 WBC (3.8-10.6) k/uL RBC (4.30-5.90) m/uL Hgb (13.0-17.5) gm/dL Hct (39.0-53.0) % RDW (11.5-15.5) % Plt Count 20 L D (150-450) k/uL Blast Cells % 5 H* % Neutrophils # (Manual) 0.70 L (1.3-7.7) k/uL Lymphocytes # (Manual) 0.51 L (1.0-4.8) k/uL Monocytes # (Manual) 1.79 H (0-1.0) k/uL Myelocytes # (Manual) 0.03 H (0) k/uL Blast Cells # (Man) 0.16 H (0) k/uL ABG pH (7.35-7.45) ABG pCO2 (35-45) mmHg ABG pO2 (83-108) mmHg ABG HCO3 (21-25) mmol/L ABG Total CO2 (19-24) mmol/L ABG O2 Saturation (94-97) % Chloride (98-107) mmol/L Carbon Dioxide (22-30) mmol/L Glucose (74-99) mg/dL POC Glucose (mg/dL) 206 H (75-99) mg/dL Plasma Lactic Acid Jaylen (0.7-2.0) mmol/L Calcium (8.4-10.2) mg/dL Troponin I 0.036 H* (0.000-0.034) ng/mL 09/04/18 09/04/18 09/04/18 Range/Units 07:24 07:30 07:30 WBC 17.4 H (3.8-10.6) k/uL RBC 3.14 L (4.30-5.90) m/uL Hgb 9.4 L (13.0-17.5) gm/dL Hct 28.5 L (39.0-53.0) % RDW 15.9 H (11.5-15.5) % Plt Count 19 L* (150-450) k/uL Blast Cells % 13 H* % Neutrophils # (Manual) 0.00 L* (1.3-7.7) k/uL Lymphocytes # (Manual) (1.0-4.8) k/uL Monocytes # (Manual) 13.92 H (0-1.0) k/uL Myelocytes # (Manual) (0) k/uL Blast Cells # (Man) 2.26 H (0) k/uL ABG pH (7.35-7.45) ABG pCO2 27 L (35-45) mmHg ABG pO2 55 L* (83-108) mmHg ABG HCO3 16 L (21-25) mmol/L ABG Total CO2 16 L (19-24) mmol/L ABG O2 Saturation 89.3 L (94-97) % Chloride 109 H (98-107) mmol/L Carbon Dioxide 17 L (22-30) mmol/L Glucose 211 H (74-99) mg/dL POC Glucose (mg/dL) (75-99) mg/dL Plasma Lactic Acid Jaylen (0.7-2.0) mmol/L Calcium 7.4 L (8.4-10.2) mg/dL Troponin I (0.000-0.034) ng/mL 09/04/18 09/04/18 09/04/18 Range/Units 07:30 07:45 09:26 WBC (3.8-10.6) k/uL RBC (4.30-5.90) m/uL Hgb (13.0-17.5) gm/dL Hct (39.0-53.0) % RDW (11.5-15.5) % Plt Count (150-450) k/uL Blast Cells % % Neutrophils # (Manual) (1.3-7.7) k/uL Lymphocytes # (Manual) (1.0-4.8) k/uL Monocytes # (Manual) (0-1.0) k/uL Myelocytes # (Manual) (0) k/uL Blast Cells # (Man) (0) k/uL ABG pH 7.32 L (7.35-7.45) ABG pCO2 29 L (35-45) mmHg ABG pO2 (83-108) mmHg ABG HCO3 15 L (21-25) mmol/L ABG Total CO2 16 L (19-24) mmol/L ABG O2 Saturation 97.1 H (94-97) % Chloride (98-107) mmol/L Carbon Dioxide (22-30) mmol/L Glucose (74-99) mg/dL POC Glucose (mg/dL) 226 H (75-99) mg/dL Plasma Lactic Acid Jaylen 5.4 H* (0.7-2.0) mmol/L Calcium (8.4-10.2) mg/dL Troponin I (0.000-0.034) ng/mL 09/04/18 Range/Units 12:00 WBC (3.8-10.6) k/uL RBC (4.30-5.90) m/uL Hgb (13.0-17.5) gm/dL Hct (39.0-53.0) % RDW (11.5-15.5) % Plt Count (150-450) k/uL Blast Cells % % Neutrophils # (Manual) (1.3-7.7) k/uL Lymphocytes # (Manual) (1.0-4.8) k/uL Monocytes # (Manual) (0-1.0) k/uL Myelocytes # (Manual) (0) k/uL Blast Cells # (Man) (0) k/uL ABG pH (7.35-7.45) ABG pCO2 (35-45) mmHg ABG pO2 (83-108) mmHg ABG HCO3 (21-25) mmol/L ABG Total CO2 (19-24) mmol/L ABG O2 Saturation (94-97) % Chloride (98-107) mmol/L Carbon Dioxide (22-30) mmol/L Glucose (74-99) mg/dL POC Glucose (mg/dL) (75-99) mg/dL Plasma Lactic Acid Jaylen 2.6 H* (0.7-2.0) mmol/L Calcium (8.4-10.2) mg/dL Troponin I (0.000-0.034) ng/mL Microbiology - Last 24 Hours (Table) 08/30/18 20:05 Blood Culture - Preliminary Blood No Growth after 96 hours 08/30/18 19:55 Blood Culture - Preliminary Blood No Growth after 96 hours Assessment and Plan (1) Acute respiratory failure Narrative/Plan: Overnight events noted. Patient is currently on the ventilator, requiring pressor support. chest x-ray shows right lower lobe opacity, effusion versus consolidation or both Possible etiologies were discussed in detail with the patient's daughter and sister for the main caregivers. Include recurrent pneumonia with parapneumonic infusion, bleeding (less likely given consolidation and hemoglobin in the same range), reaction to blood product transfusion (less likely given unilateral location), as well as direct tissue infiltration with leukemia. Given the patient's prolonged immunosuppression, and cytopenia and underlying marked generalized weakness and coronary artery disease his prognosis is very guarded in this situation. Continue current management with antibiotics, pressors and ventilator support. The patient were to deteriorate further despite ongoing aggressive management, would be very unlikely to benefit from more aggressive measures such as CPR. This was discussed in detail. Their daughter and sister were in agreement. For his status will be changed to no CPR. In addition if he continues to deteriorate despite aggressive ongoing care, they will consider comfort. Current Visit: Yes Status: Acute Code(s): J96.00 - ACUTE RESPIRATORY FAILURE, UNSP W HYPOXIA OR HYPERCAPNIA SNOMED Code(s): 80717538 (2) Acute myelogenous leukemia Narrative/Plan: the The patient had restaging bone marrow done. Results are not yet available. However in the meantime there has been rapid increase in WBC over the last 48 hours. The chest shows mostly monocytic cells, a small percentage of neutrophils as well as a small percentage of definite blasts. This picture is concerning for recurrent AML. Flow cytometry for blasts will be ordered. Show significant percentage of myelo/monoblasts, this would indicate a failure of his current regimen. In this situation, other options would be very limited, given the patient's baseline poor performance status (even if he was not on the ventilator) , which puts him at high risk for intolerance with conventional combination chemotherapy regimen This was also discussed in detail. They Expressed understanding of the same. Therefore if the flow confirms recurrence of AML, that by itself, would be an indication to consider comfort care Current Visit: Yes Status: Acute Priority: High Code(s): C92.00 - ACUTE MYELOBLASTIC LEUKEMIA, NOT HAVING ACHIEVED REMISSION SNOMED Code(s): 90066266 (3) Neutropenia with fever Narrative/Plan: Though fever pattern is much improved over the last 2-3 days, due to. Persists. Despite increase in WBC noted, percentage of normal neutrophils is still very small Current Visit: No Status: Acute Code(s): D70.9 - NEUTROPENIA, UNSPECIFIED; R50.81 - FEVER PRESENTING WITH CONDITIONS CLASSIFIED ELSEWHERE SNOMED Code(s): 473534538 (4) Pancytopenia due to antineoplastic chemotherapy Narrative/Plan: Hemoglobin and platelets are in a safe range today. Continue to monitor with supportive transfusions as needed Current Visit: No Status: Acute Code(s): D61.810 - ANTINEOPLASTIC CHEMOTHERAPY INDUCED PANCYTOPENIA; T45.1X5A - ADVERSE EFFECT OF ANTINEOPLASTIC AND IMMUNOSUP DRUGS, INIT SNOMED Code(s): 887731683641207
[2018-09-04] MEDS: POTASSIUM CHLORIDE ER 20 MEQ TAB.ER PO SCH ×2 (12:58→20:30)
[2018-09-04] MEDS: CHLORHEXIDINE GLUCONATE 15 ML CUP MUCOUS MEM SCH ×2 (12:58→20:12)
[2018-09-04] MEDS: ATORVASTATIN 80 MG TAB PO SCH (12:59)
[2018-09-04] MEDS: MEROPENEM 1 GM in SODIUM CHLORIDE 0.9% 100 ML IVPB SCH (13:19)
--- NOTE | 2018-09-04 13:23 | P.CNPUL ---
History of Present Illness Consult date: 09/04/18 Reason for consult: dyspnea, pneumonia History of present illness: This is a 62-year-old male patient who got transferred to the intensive care u [facility] this morning because of worsening shortness of breath, tachypnea, tachycardia, hypoxemia, and at time of the arrival the patient was very short of breath using excessive muscle breathing. He was also in atrial fibrillation with rapid ventricular response. Immediately after he got transferred to the ICU, I reviewed the chest x-ray and there was a progressive worsening over this consolidation of the right lung. The patient was intubated and placed on a mechanical ventilator. The patient had a triple lumen catheter and an art line catheter was inserted. I started the patient IV fluids a total of 3 L was given and the patient was started on pressors for hemodynamic support. In regards to the right lung pneumonia the patient was on Merrem and I further broaden the antibiotics to include a combination of vancomycin and anidulafungin. The patient is currently sedated with propofol at 30 mics. Pressors are running somewhat between 20-30 mics per minute. Urine output is nearly absent. Blood gases post intubation showed a pH of 7.32 with a pCO2 of 29 and pO2 of 103 and this was on FiO2 of 100%. The PEEP was brought up to 8 and I asked to gradually wean down the FiO2 as tolerated to maintain a saturation above 90%. The patient is a tidal volume of 400 was rate of 26. The white cell cause at 17.4. Hemoglobin is at 9.4. Platelet count is at 19. This patient is a case of CLL with extensive treatment in the past. More recently, there is direct. The rise in the white cell count and mostly monocytic cells and a small percentage of neutrophils as well as small percentage of definite blasts. The patient is very much concerning of AML. Flow cytometry for blasts will be ordered by hematology oncology. Note that the patient is a very poor baseline performance and fun ctional status. He is not thought to tolerate high dose of combination chemotherapeutic regimen. This has been discussed with the family. Review of Systems ROS unobtainable: due to endotracheal tube Past Medical History Past Medical History: Cancer, Myocardial Infarction ([place]), Pneumonia Additional Past Medical History / Comment(s): 2000 diagnosed with CLL treated with chemo successfully, 08/2014 R side back mass-diffuse large B cell lymphoma treated with chemo, 11/2016 recurrent R back mass-diffuse large B cell lymphoma with current chemo, pancytopenia, ITP, anemia, pneumonia with sepsis, 02/20/17 NSTEMI with heart cath-tx medically. Last Myocardial Infarction Date:: 02/20/17 History of Any Multi-Drug Resistant Organisms: None Reported Past Surgical History: Heart Catheterization, Heart Catheterization With Stent Additional Past Surgical History / Comment(s): 02/20/17 cardiac cath, 2001 [facility], R upper back mass-needle bxs, colonoscopy-normal, power port, 2019 [facility]. Past Anesthesia/Blood Transfusion Reactions: No Reported Reaction Additional Past Anesthesia/Blood Transfusion Reaction / Comment(s): Pt has received blood in the past without reaction. 02/20/17 pt had chest pain/SOB (NSTEMI) 1 day post transfusion. Date of Last Stent Placement:: 2017 Past Psychological History: No Psychological Hx Reported Additional Psychological History / Comment(s): Patient has history of smoking 1 pack per day for over 44 years and quit 2 months ago. He denies any marijuana, street drug or alcohol use. He lives at home with his daughter and there is a dog in the home. He denies any recent travel. No service. 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 Smoking Status: Former smoker - Past Family History Father Additional Family Medical History / Comment(s): Father was an alcoholic. He committed suicide. Mother Family Medical History: Cancer Additional Family Medical History / Comment(s): Mother had Breast Cancer 25 yrs ago. She is 85yrs old. Medications and Allergies Home Medications Medication Instructions Recorded Confirmed Type Folic Acid 1 mg PO DAILY 02/18/17 08/30/18 History Atorvastatin [Lipitor] 80 mg PO DAILY 06/02/18 08/30/18 History ALPRAZolam [Xanax] 0.25 mg PO TID PRN #6 tab 08/20/18 08/30/18 Rx Acetaminophen Tab [Tylenol] 500 mg PO Q4H PRN tab 08/20/18 08/30/18 Rx Allopurinol [Zyloprim] 300 mg PO DAILY tab 08/20/18 08/30/18 Rx Ascorbic Acid [Vitamin C] 500 mg PO DAILY tab 08/20/18 08/30/18 Rx Ferrous Sulfate [Iron (65 MG 325 mg PO TID tab 08/20/18 08/30/18 Rx Elemental)] Ipratropium-Albuterol Nebulize 3 ml INHALATION RT-QID PRN 08/20/18 08/30/18 Rx [Duoneb 0.5 mg-3 mg/3 ml Soln] ampul.neb Lidocaine Viscous [Xylocaine 30 ml PO Q4HR PRN ml 08/20/18 08/30/18 Rx Viscous 2%] Mag Hydrox/Al Hydrox/Simeth 30 ml PO Q4HR cup 08/20/18 08/30/18 Rx [Maalox] Nystatin 100,000 Unit/ml Susp 3,000,000 unit PO Q4HR cup 08/20/18 08/30/18 Rx [Mycostatin Oral Susp] Pantoprazole [Protonix] 40 mg PO [id number] tablet. 08/20/18 08/30/18 Rx Potassium Chloride ER [K-Dur 20] 20 meq PO BID tab.er.prt 08/20/18 08/30/18 Rx traMADol HCl [Ultram] 50 mg PO Q6HR PRN tab 08/20/18 08/30/18 Rx Metoprolol Succinate (ER) [Toprol 25 mg PO DAILY 08/30/18 08/30/18 History XL] Acyclovir [Zovirax] 400 mg PO TID #90 ml 08/31/18 Rx Levofloxacin [Levaquin] 500 mg PO DAILY #7 tab 08/31/18 Rx Venetoclax [Venclexta] 400 mg PO DAILY 09/03/18 09/03/18 History Allergies Allergy/AdvReac Type Severity Reaction Status Date / Time No Known Allergies Allergy Verified 08/30/18 14:32 Physical Exam Vitals: Vital Signs Temp Pulse Pulse Resp BP Pulse Ox 09/04/18 11:43 113 H 09/04/18 05:00 97.8 F 137 H 40 H 129/71 88 L 09/03/18 23:36 94 09/03/18 23:11 96 09/03/18 20:14 98.9 F 132 H 16 100/65 98 09/03/18 20:00 93 L 09/03/18 17:32 99 F 147 H 20 113/64 93 L 09/03/18 14:44 149 H Intake and Output 09/03/18 09/04/18 09/04/18 22:59 06:59 14:59 Intake Total 45.608 Balance 45.608 Intake: Intake, IV Titration 45.608 Amount Propofol 1,000 mg In 45.608 Empty Bag 1 bag @ Titrate IV .Q0M [facility] Rx#: [id number] Other: Voiding Method Diaper Incontinent # Voids 1 Cachectic, thin, emaciated, malnourished, seems to be weighed all other than his stated age Head the patient is currently intubated on a mechanical ventilator. Orogastric and orotracheal tube are both in place. Neck was supple and without jugular venous distension, thyromegaly, or carotid bruits. Carotids were easily palpable bilaterally. There was no adenopathy. The patient is edentulous and the patient has orotracheal tube in place. Lungs sounds are diminished in the right lung base along with extensive crackling in the mid and lower lung tristan more so on the right. Cardiac exam revealed the PMI to be normally situated and sized. The rhythm was regular and no extrasystoles were noted during several minutes of auscultation. The first and second heart sounds were normal and physiologic splitting of the second heart sound was noted. There were no murmurs, rubs, clicks, or gallops. Abdominal exam revealed normal bowel sounds. The abdomen was soft, non-tender, and without masses, organomegaly, or appreciable enlargement of the abdominal aorta. Examination of the extremities revealed marked diminished in palpable radial, femoral and pedal pulses. There was no cyanosis, clubbing or edema. The pulses in lower extremities are quite diminished in the feet are cold for now. Neurologically the patient was awake prior to the intubation process. He was moving all 4 extremities. Post intubation the patient is sedated. Results - Laboratory Findings CBC and BMP: 09/04/18 07:30 09/04/18 07:30 ABG ABG pH 7.32 (7.35-7.45) L 09/04/18 09:26 ABG pCO2 29 mmHg (35-45) L 09/04/18 09:26 ABG pO2 103 mmHg (83-108) 09/04/18 09:26 ABG O2 Saturation 97.1 % (94-97) H 09/04/18 09:26 PT/INR, D-dimer PT 13.8 sec (9.0-12.0) H 08/31/18 06:33 INR 1.4 (<1.2) H 08/31/18 06:33 Abnormal lab findings: Abnormal Labs 08/30/18 08/30/18 08/30/18 14:45 14:45 14:45 WBC 0.8 L* RBC 2.17 L Hgb 6.3 L* Hct 18.7 L* RDW Plt Count 8 L* Blast Cells % Neutrophils # (Manual) Lymphocytes # (Manual) Monocytes # (Manual) Myelocytes # (Manual) Blast Cells # (Man) PT INR APTT ABG pH ABG pCO2 ABG pO2 ABG HCO3 ABG Total CO2 ABG O2 Saturation Sodium 135 L Chloride Carbon Dioxide 20 L BUN 21 H Creatinine 1.29 H Glucose 122 H POC Glucose (mg/dL) Plasma Lactic Acid Jaylen Uric Acid Calcium 8.2 L Phosphorus Total Bilirubin 1.9 H AST 153 H ALT 120 H Alkaline Phosphatase 442 H Troponin I Total Protein 6.2 L Albumin 3.0 L Urine Protein Urine Blood Hyaline Casts Urine Mucus Crossmatch See Detail 08/30/18 08/30/18 08/30/18 14:45 22:24 23:15 WBC 0.5 L* RBC 2.33 L Hgb 6.9 L* Hct 20.3 L RDW Plt Count 7 L* Blast Cells % Neutrophils # (Manual) Lymphocytes # (Manual) Monocytes # (Manual) Myelocytes # (Manual) Blast Cells # (Man) PT 13.7 H INR 1.3 H APTT 42.2 H ABG pH ABG pCO2 ABG pO2 ABG HCO3 ABG Total CO2 ABG O2 Saturation Sodium Chloride Carbon Dioxide BUN Creatinine Glucose POC Glucose (mg/dL) Plasma Lactic Acid Jaylen Uric Acid Calcium Phosphorus Total Bilirubin AST ALT Alkaline Phosphatase Troponin I Total Protein Albumin Urine Protein 2+ H Urine Blood Small H Hyaline Casts 7 H Urine Mucus Occasional H Crossmatch 08/31/18 08/31/18 08/31/18 06:33 06:33 06:33 WBC 0.5 L* RBC 2.50 L Hgb 7.3 L Hct 21.7 L RDW Plt Count 18 L* D Blast Cells % Neutrophils # (Manual) Lymphocytes # (Manual) Monocytes # (Manual) Myelocytes # (Manual) Blast Cells # (Man) PT 13.8 H INR 1.4 H APTT 36.3 H ABG pH ABG pCO2 ABG pO2 ABG HCO3 ABG Total CO2 ABG O2 Saturation Sodium 135 L Chloride Carbon Dioxide 20 L BUN Creatinine Glucose 110 H POC Glucose (mg/dL) Plasma Lactic Acid Jaylen Uric Acid 2.6 L Calcium 7.2 L Phosphorus 2.1 L Total Bilirubin 2.0 H AST 63 H ALT 74 H Alkaline Phosphatase 348 H Troponin I Total Protein 4.6 L Albumin 2.2 L Urine Protein Urine Blood Hyaline Casts Urine Mucus Crossmatch 09/01/18 09/01/18 09/02/18 09:18 09:18 06:45 WBC 0.6 L* 0.9 L* RBC 2.66 L 2.44 L Hgb 7.7 L 7.0 L Hct 23.7 L 21.8 L RDW Plt Count 10 L* 6 L* Blast Cells % Neutrophils # (Manual) Lymphocytes # (Manual) Monocytes # (Manual) Myelocytes # (Manual) Blast Cells # (Man) PT INR APTT ABG pH ABG pCO2 ABG pO2 ABG HCO3 ABG Total CO2 ABG O2 Saturation Sodium 136 L Chloride 111 H Carbon Dioxide 18 L BUN Creatinine Glucose 132 H POC Glucose (mg/dL) Plasma Lactic Acid Jaylen Uric Acid Calcium 7.2 L Phosphorus Total Bilirubin 2.1 H AST ALT Alkaline Phosphatase 340 H Troponin I Total Protein 4.4 L Albumin 2.1 L Urine Protein Urine Blood Hyaline Casts Urine Mucus Crossmatch 09/02/18 09/03/18 09/03/18 06:45 08:22 08:22 WBC 3.2 L RBC 3.29 L Hgb 9.7 L D Hct 29.7 L RDW Plt Count 20 L D Blast Cells % 5 H* Neutrophils # (Manual) 0.70 L Lymphocytes # (Manual) 0.51 L Monocytes # (Manual) 1.79 H Myelocytes # (Manual) 0.03 H Blast Cells # (Man) 0.16 H PT INR APTT ABG pH ABG pCO2 ABG pO2 ABG HCO3 ABG Total CO2 ABG O2 Saturation Sodium 136 L Chloride 111 H 109 H Carbon Dioxide 20 L 18 L BUN Creatinine 0.65 L Glucose 132 H 113 H POC Glucose (mg/dL) Plasma Lactic Acid Jaylen Uric Acid Calcium 7.4 L 7.5 L Phosphorus Total Bilirubin AST ALT Alkaline Phosphatase Troponin I Total Protein Albumin Urine Protein Urine Blood Hyaline Casts Urine Mucus Crossmatch 09/03/18 09/04/18 09/04/18 17:58 07:05 07:24 WBC RBC Hgb Hct RDW Plt Count Blast Cells % Neutrophils # (Manual) Lymphocytes # (Manual) Monocytes # (Manual) Myelocytes # (Manual) Blast Cells # (Man) PT INR APTT ABG pH ABG pCO2 27 L ABG pO2 55 L* ABG HCO3 16 L ABG Total CO2 16 L ABG O2 Saturation 89.3 L Sodium Chloride Carbon Dioxide BUN Creatinine Glucose POC Glucose (mg/dL) 206 H Plasma Lactic Acid Jaylen Uric Acid Calcium Phosphorus Total Bilirubin AST ALT Alkaline Phosphatase Troponin I 0.036 H* Total Protein Albumin Urine Protein Urine Blood Hyaline Casts Urine Mucus Crossmatch 09/04/18 09/04/18 09/04/18 07:30 07:30 07:30 WBC 17.4 H RBC 3.14 L Hgb 9.4 L Hct 28.5 L RDW 15.9 H Plt Count 19 L* Blast Cells % 13 H* Neutrophils # (Manual) 0.00 L* Lymphocytes # (Manual) Monocytes # (Manual) 13.92 H Myelocytes # (Manual) Blast Cells # (Man) 2.26 H PT INR APTT ABG pH ABG pCO2 ABG pO2 ABG HCO3 ABG Total CO2 ABG O2 Saturation Sodium Chloride 109 H Carbon Dioxide 17 L BUN Creatinine Glucose 211 H POC Glucose (mg/dL) Plasma Lactic Acid Jaylen 5.4 H* Uric Acid Calcium 7.4 L Phosphorus Total Bilirubin AST ALT Alkaline Phosphatase Troponin I Total Protein Albumin Urine Protein Urine Blood Hyaline Casts Urine Mucus Crossmatch 09/04/18 09/04/18 09/04/18 07:45 09:26 12:00 WBC RBC Hgb Hct RDW Plt Count Blast Cells % Neutrophils # (Manual) Lymphocytes # (Manual) Monocytes # (Manual) Myelocytes # (Manual) Blast Cells # (Man) PT INR APTT ABG pH 7.32 L ABG pCO2 29 L ABG pO2 ABG HCO3 15 L ABG Total CO2 16 L ABG O2 Saturation 97.1 H Sodium Chloride Carbon Dioxide BUN Creatinine Glucose POC Glucose (mg/dL) 226 H Plasma Lactic Acid Jaylen 2.6 H* Uric Acid Calcium Phosphorus Total Bilirubin AST ALT Alkaline Phosphatase Troponin I Total Protein Albumin Urine Protein Urine Blood Hyaline Casts Urine Mucus Crossmatch - Diagnostic Findings Chest x-ray: image reviewed Assessment and Plan Plan: 1 septic shock secondary to extensive right lung pneumonia in the setting of pancytopenia with a suspicion for AML. The patient had a right lower lobe consolidation that progress while being on Merrem and the patient has developed significant right lung consolidation for now. 2 hypotension secondary to septic shock currently pressor dependent 3 oligoria secondary to above 4 acute respiratory distress currently intubated on a mechanical ventilator secondary to an extensive right lung pneumonia with secondary sepsis. Bron choscopy and bronchial lavage of the right middle lobe was done pending further cultures 5 pancytopenia due to chemotherapy as well as possible AML and the patient is receiving supportive transfusions. We'll try to keep a hemoglobin above 7 and platelet count above 10 6 neutropenic fever at time of admission. The patient was being treated for right lower lobe pneumonia with IV Merrem with subsequent progression as stated above. There is a concern that the patient has gone into an AML phase. 7 coronary artery disease, with previous insertion of coronary stent. Current echocardiogram is not reliable as the patient is tachycardic. His ejection fraction from before in the order of 35-40% 8 new-onset atrial fibrillation with rapid vascular response second to above 9 extensive history with CLL treated successfully with chemotherapy treatment back in 2014 with subsequent recurrence 10 history of ITP Plan Prognosis poor based above-mentioned comorbidities. There is a suspicion for AML. The patient would have a flow cytometry sent due to concern of AML. And event. Developed an acute AML, treatment options will be limited as the patient's baseline performance and functional status is extremely poor. Meanwhile, the patient is in septic shock. We'll broaden the antibiotic coverage to add antifungal agents and vancomycin. We'll send blood cultures. Patient is intubated and this is a vent changes will be done. Continue IV fluids and the patient will receive a total of 3 L. Continue pressors. Lines have been inserted. Bronchoscopy and the lavage of the right middle lobe was done. Add Decadron. We'll continue to follow. Prognosis poor baseline above-mentioned comorbidities. This is a critically care evaluation.
[2018-09-04 13:35] LABS: Appearance,BF Cloudy; Nucleated Cells, Body Fluid 1320 /uL; RBC, Body Fluid 130 /uL
[2018-09-04 13:37] LABS: Mononuclear WBC,Body Fluid 99 %; Polynuclear WBC,Body Fluid 1 %; Total Cells Counted,Body Fluid 100
--- NOTE | 2018-09-04 13:59 | PCN ---
PROCEDURE NOTE INTUBATION: PREOPERATIVE DIAGNOSIS: Pneumonia with acute hypoxic respiratory failure. POSTOPERATIVE DIAGNOSIS: Pneumonia with acute hypoxic respiratory failure. PROCEDURE DESCRIPTION: A time-out was completed verifying correct patient, procedure, site, positioning, and implant(s) or special equipment if applicable. The patient was positioned appropriately and I used a #3 Mac blade and intubated the patient with a #8 orotracheal tube under direct laryngoscopy. The tube was anchored at 22 cm at the teeth. Correct placement was confirmed by presence of bilateral breath sounds without air sounds in the abdomen on auscultation. An end-tidal CO2 monitor was also used to confirm tracheal placement of the ET tube. A chest x-ray was ordered to assess for pneumothorax and verify endotracheal tube placement. The patient tolerated the procedure well and there were no bedside complications. MMODL / IJN: [id number] /
--- NOTE | 2018-09-04 13:59 | PCN ---
PROCEDURE NOTE TRIPLE LUMEN CATHETER PLACEMENT: Indication Hemodynamic monitoring/Intravenous access. A time-out was completed verifying correct patient, procedure, site, positioning, and implant(s) or special equipment if applicable. The patient was placed in a dependent position appropriate for triple lumen catheter placement based on the vein to be cannulated. The patient's right groin was prepped and draped in sterile fashion. 1% Lidocaine was used to anesthetize the surrounding skin area. A triple lumen 9F Cordis catheter was introduced into the right femoral vein using Seldinger technique. The catheter was threaded smoothly over the guide wire and appropriate blood return was obtained. Each lumen of the catheter was evacuated of air and flushed with sterile saline. The catheter was then sutured in place to the skin and a sterile dressing applied. Perfusion to the extremity distal to the point of catheter insertion was checked and found to be adequate. MMODL / IJN: [id number] /
--- NOTE | 2018-09-04 14:05 | PCN ---
PROCEDURE NOTE ARTERIAL LINE PLACEMENT: Indications: Hemodynamic monitoring. A time-out was completed verifying correct patient, procedure, site, positioning, and implant(s) or special equipment if applicable. Zev's test was performed to ensure adequate perfusion. The patient's right groin was prepped and draped in sterile fashion. 1% Lidocaine was used to anesthetize the area. An 18G Arrow arterial line was introduced into the femoral artery. The catheter was threaded over the guide wire and the needle was removed with appropriate pulsatile blood return. Blood loss was minimal. The catheter was then sutured in place to the skin and a sterile dressing applied. Perfusion to the extremity distal to the point of catheter insertion was checked and found to be adequate. The patient tolerated the procedure well and there were no complications. MALOUL / IJN: [id number] /
--- NOTE | 2018-09-04 14:08 | PCN ---
PROCEDURE NOTE BRONCHOSCOPY: This bronchoscopy was done after the patient was intubated on a mechanical ventilator. PREOPERATIVE DIAGNOSIS: Acute hypoxic respiratory failure and right lung pneumonia. POSTOPERATIVE DIAGNOSIS: Acute hypoxic respiratory failure and right lung pneumonia. PROCEDURE DESCRIPTION: The flexible bronchoscope was introduced into the orotracheal tube. The procedure was done while the patient was being adequately oxygenated and mechanically ventilated. The bronchoscope was advanced and the tip of the orotracheal tube was seen around 2 cm above the silva. Distal trachea was within normal limits. The silva was sharp in the midline. Examination included the bilateral mainstem bronchi, right upper lobe bronchus, right middle lobe bronchus and lower lobe bronchus, left upper lobe bronchus, left lower lobe bronchus along with various segments and subsegments. All of these airways were patent and within normal limits. The bronchoscope was wedged into the right middle lobe and the bronchoalveolar lavage was done. A total of 100 mL of fluid was infused and 20 mL of aspirate was obtained. The aspirate was not bloody. Bronchoscope was removed. The procedure was terminated. The samples were sent for microbial cultures and analysis. MMODL / IJN: [id number] /
[2018-09-04] MEDS: ALLOPURINOL 300 MG TAB PO SCH (16:35)
[2018-09-04 17:03] LABS: ABG HCO3 15 mmol/L (21-25); ABG PCO2 35 mmHg (35-45); ABG PH 7.23 (7.35-7.45); ABG PO2 123 mmHg (83-108); ABG TCO2 16 mmol/L (19-24); Allen Test Performed? Yes
--- NOTE | 2018-09-04 17:21 | P.CRDCN ---
History of Present Illness Consult date: 09/04/18 History of present illness: This is a 62-year-old gentleman with history of lymphoma and CLL was currently was sent to the emergency room for blood and platelet transfusion. Patient was found to have a right lower lobe pneumonia and was admitted here. Patient also developed fever. Today patient was transferred to intensive care unit because of worsening shortness of breath, tachycardia, hypoxemia, and also chest x-ray evidence of dense right-sided infiltrate. Patient is on mechanical ventilator for respiratory failure. Patient developed heart rapid heartbeat and went to be atrial fibrillation with a rapid response. Patient was intubated and subsequently converted to sinus rhythm. Patient is also mentioned an amiodarone. Patient is also being treated for anemia and also thrombocytopenia. Patient is taken off Plavix because of the hospital.. Patient is known to have ischemic heart disease and stent placement done in 2016. At this point we'll hold his antiplatelet agents. Patient to continued antibiotic therapy. We will continue with IV amiodarone for treatment of atrial fibrillation. Prognosis is poor Review of Systems As per the chart Past Medical History Past Medical History: Cancer, Myocardial Infarction (NM), Pneumonia Additional Past Medical History / Comment(s): 2000 diagnosed with CLL treated with chemo successfully, 08/2014 R side back mass-diffuse large B cell lymphoma treated with chemo, 11/2016 recurrent R back mass-diffuse large B cell lymphoma with current chemo, pancytopenia, ITP, anemia, pneumonia with sepsis, 02/20/17 NSTEMI with heart cath-tx medically. Last Myocardial Infarction Date:: 02/20/17 History of Any Multi-Drug Resistant Organisms: None Reported Past Surgical History: Heart Catheterization, Heart Catheterization With Stent Additional Past Surgical History / Comment(s): 02/20/17 cardiac cath, 2000 [facility], R upper back mass-needle bxs, colonoscopy-normal, power port, 2019 [facility]. Past Anesthesia/Blood Transfusion Reactions: No Reported Reaction Additional Past Anesthesia/Blood Transfusion Reaction / Comment(s): Pt has received blood in the past without reaction. 02/20/17 pt had chest pain/SOB (NSTEMI) 1 day post transfusion. Date of Last Stent Placement:: 2017 Past Psychological History: No Psychological Hx Reported Additional Psychological History / Comment(s): Patient has history of smoking 1 pack per day for over 44 years and quit 2 months ago. He denies any marijuana, street drug or alcohol use. He lives at home with his daughter and there is a dog in the home. He denies any recent travel. No service. 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 Smoking Status: Former smoker - Past Family History Father Additional Family Medical History / Comment(s): Father was an alcoholic. He committed suicide. Mother Family Medical History: Cancer Additional Family Medical History / Comment(s): Mother had Breast Cancer 25 yrs ago. She is 85yrs old. Medications and Allergies Home Medications Medication Instructions Recorded Confirmed Type Folic Acid 1 mg PO DAILY 02/18/17 08/30/18 History Atorvastatin [Lipitor] 80 mg PO DAILY 06/02/18 08/30/18 History ALPRAZolam [Xanax] 0.25 mg PO TID PRN #6 tab 08/20/18 08/30/18 Rx Acetaminophen Tab [Tylenol] 500 mg PO Q4H PRN tab 08/20/18 08/30/18 Rx Allopurinol [Zyloprim] 300 mg PO DAILY tab 08/20/18 08/30/18 Rx Ascorbic Acid [Vitamin C] 500 mg PO DAILY tab 08/20/18 08/30/18 Rx Ferrous Sulfate [Iron (65 MG 325 mg PO TID tab 08/20/18 08/30/18 Rx Elemental)] Ipratropium-Albuterol Nebulize 3 ml INHALATION RT-QID PRN 08/20/18 08/30/18 Rx [Duoneb 0.5 mg-3 mg/3 ml Soln] ampul.neb Lidocaine Viscous [Xylocaine 30 ml PO Q4HR PRN ml 08/20/18 08/30/18 Rx Viscous 2%] Mag Hydrox/Al Hydrox/Simeth 30 ml PO Q4HR cup 08/20/18 08/30/18 Rx [Maalox] Nystatin 100,000 Unit/ml Susp 3,000,000 unit PO Q4HR cup 08/20/18 08/30/18 Rx [Mycostatin Oral Susp] Pantoprazole [Protonix] 40 mg PO [id number] tablet. 08/20/18 08/30/18 Rx Potassium Chloride ER [K-Dur 20] 20 meq PO BID tab.er.prt 08/20/18 08/30/18 Rx traMADol HCl [Ultram] 50 mg PO Q6HR PRN tab 08/20/18 08/30/18 Rx Metoprolol Succinate (ER) [Toprol 25 mg PO DAILY 08/30/18 08/30/18 History XL] Acyclovir [Zovirax] 400 mg PO TID #90 ml 08/31/18 Rx Levofloxacin [Levaquin] 500 mg PO DAILY #7 tab 08/31/18 Rx Venetoclax [Venclexta] 400 mg PO DAILY 09/03/18 09/03/18 History Allergies Allergy/AdvReac Type Severity Reaction Status Date / Time No Known Allergies Allergy Verified 08/30/18 14:32 Physical Exam Vitals: Vital Signs Temp Pulse Pulse Resp BP BP Pulse Ox 09/04/18 16:05 90 09/04/18 15:45 88 09/04/18 15:00 106 H 40 H 99 09/04/18 14:45 106 H 31 H 100 09/04/18 14:30 96 30 H 100 09/04/18 14:15 100 29 H 100 09/04/18 14:00 107 H 44 H 100 09/04/18 13:45 98 38 H 99 09/04/18 13:30 111 H 39 H 99 09/04/18 13:15 105 H 38 H 99 09/04/18 13:00 106 H 30 H 98 09/04/18 12:45 112 H 39 H 99 09/04/18 12:30 111 H 28 H 99 09/04/18 12:16 114 H 28 H 100 09/04/18 12:01 97.7 F 112 H 30 H 99 09/04/18 11:55 102 H 09/04/18 11:45 114 H 28 H 100 09/04/18 11:43 113 H 09/04/18 11:30 114 H 28 H 100 09/04/18 11:15 115 H 28 H 100 09/04/18 11:00 117 H 28 H 100 09/04/18 10:45 120 H 38 H 100 09/04/18 10:30 117 H 40 H 100 09/04/18 10:15 118 H 39 H 100 09/04/18 10:00 121 H 30 H 100 09/04/18 09:45 105 H 32 H 100 09/04/18 09:30 113 H 30 H 78/51 100 09/04/18 09:15 120 H 38 H 56/29 100 09/04/18 09:00 141 H 36 H 98/63 90 L 09/04/18 08:45 144 H 30 H 102/81 100 09/04/18 08:30 179 H 38 H 90/56 100 09/04/18 08:15 179 H 41 H 90/56 100 09/04/18 08:00 97.8 F 179 H 40 H 91/61 94 L 09/04/18 05:00 97.8 F 137 H 40 H 129/71 88 L 09/03/18 23:36 94 09/03/18 23:11 96 09/03/18 20:14 98.9 F 132 H 16 100/65 98 09/03/18 20:00 93 L 09/03/18 17:32 99 F 147 H 20 113/64 93 L Intake and Output 09/04/18 09/04/18 09/04/18 06:59 14:59 22:59 Intake Total 4220.278 106.504 Output Total 400 50 Balance 3820.278 56.504 Intake: IV 4150 100 Anidulafungin 100 mg In 100 Sodium Chloride 0.9% 100 ml @ 84 mls/hr IVPB DAILY [facility] Rx#:[id number] Dextrose 5% in Water 100 100 ml @ 618 mls/hr IV .Q11M ONE with Amiodarone 300 mg Rx#:[id number] Meropenem 1 gm In Sodium 100 Chloride 0.9% 100 ml @ 200 mls/hr IVPB Q12H [facility] Rx#:[id number] Sodium Chloride 0.9% 1, 600 100 000 ml @ 100 mls/hr IV . Q10H [facility] Rx#:[id number] Sodium Chloride 0.9% 1, 3000 000 ml @ 999 mls/hr IV . Q1H1M ONE Rx#:[id number] Vancomycin 1,000 mg In 250 Sodium Chloride 0.9% 250 ml @ 125 mls/hr IVPB Q12HR [facility] Rx#:[id number] Intake, IV Titration 70.278 6.504 Amount Norepinephrine 32 mg In 9.256 6.504 Sodium Chloride 0.9% 218 ml @ 0.05 MCG/KG/MIN 1. 414 mls/hr IV .Q24H [facility] Rx#:[id number] Propofol 1,000 mg In 61.022 Empty Bag 1 bag @ Titrate IV .Q0M [facility] Rx#: [id number] Output: Urine 400 50 ABP, PAP, CO, CI - Last 8 Hours Arterial Blood Pressure 116/40 Arterial Blood Pressure 90/44 Arterial Blood Pressure 102/43 Arterial Blood Pressure 95/46 Arterial Blood Pressure 78/40 Arterial Blood Pressure 86/46 Arterial Blood Pressure 114/45 Arterial Blood Pressure 113/50 Arterial Blood Pressure 118/49 Arterial Blood Pressure 105/45 Arterial Blood Pressure 116/48 Arterial Blood Pressure 111/49 Arterial Blood Pressure 100/40 Arterial Blood Pressure 126/51 Arterial Blood Pressure 123/49 Arterial Blood Pressure 116/46 Arterial Blood Pressure 133/49 Arterial Blood Pressure 120/51 Arterial Blood Pressure 136/54 Arterial Blood Pressure 135/50 Arterial Blood Pressure 144/53 Arterial Blood Pressure 108/47 Arterial Blood Pressure 99/50 GENERAL EXAM: Patient is intubated and sedated HEENT: Normocephalic. Normal reaction of pupils, equal size, normal range of extraocular motion. No erythema or exudates in the throat. NECK: No masses, no nuchal rigidity. CHEST: No chest wall deformity. LUNGS: Diminished air exchange with some wheezing especially on the right side HEART: S1 and S2 normal. Distant heart sounds ABDOMEN: No hepatosplenomegaly, normal bowel sounds, no guarding or rigidity. SKIN: No rashes CENTRAL NERVOUS SYSTEM: Deferred EXTREMITIES: No cyanosis, clubbing or edema. Results 09/04/18 07:30 09/04/18 07:30 Cardiac Enzymes 09/03/18 Range/Units 17:58 Troponin I 0.036 H* (0.000-0.034) ng/mL CBC 09/04/18 Range/Units 07:30 WBC 17.4 H (3.8-10.6) k/uL RBC 3.14 L (4.30-5.90) m/uL Hgb 9.4 L (13.0-17.5) gm/dL Hct 28.5 L (39.0-53.0) % Plt Count 19 L* (150-450) k/uL Comprehensive Metabolic Panel 09/04/18 Range/Units 07:30 Sodium 138 (137-145) mmol/L Potassium 4.2 (3.5-5.1) mmol/L Chloride 109 H (98-107) mmol/L Carbon Dioxide 17 L (22-30) mmol/L BUN 17 (9-20) mg/dL Creatinine 0.85 (0.66-1.25) mg/dL Glucose 211 H (74-99) mg/dL Calcium 7.4 L (8.4-10.2) mg/dL Current Medications Generic Name Dose Route Start Last Admin Trade Name Freq PRN Reason Stop Dose Admin Acetaminophen 500 mg 08/30/18 19:11 09/02/18 20:29 Tylenol Tab PO 500 mg Q4H PRN Administration Mild Pain or Fever > 100.5 Acyclovir 400 mg 09/04/18 12:00 09/04/18 12:50 Zovirax PO 400 mg BID [facility] Administration Al Hydroxide/Mg Hydroxide 30 ml 08/30/18 20:00 Maalox PO Q4HR PRN Upset Stomach Albuterol/Ipratropium 3 ml 08/30/18 19:11 09/04/18 15:45 Duoneb 0.5 Mg-3 Mg/3 Ml Soln INHALATION 3 ml RT-QID PRN Administration Shortness Of Breath Or Wheezing Allopurinol 300 mg 08/31/18 09:00 09/04/18 16:35 Zyloprim PO 300 mg DAILY [facility] Administration Alprazolam 0.25 mg 08/30/18 19:11 09/03/18 22:21 Xanax PO 0.25 mg TID PRN Administration Anxiety Atorvastatin Calcium 80 mg 08/31/18 09:00 09/04/18 12:59 Lipitor PO 80 mg DAILY [facility] Administration Chlorhexidine Gluconate 15 ml 09/04/18 11:30 09/04/18 12:58 Peridex MUCOUS MEM 15 ml BID [facility] Administration Al Hydroxide/Mg Hydroxide 30 0 ml 09/01/18 12:00 09/04/18 16:36 ml/ Lidocaine HCl 30 ml/ PO 5 ml Diphenhydramine HCl 75 mg/ Q6HR [facility] Administration Nystatin 3,000,000 unit Dexamethasone Sodium Phosphate 1 mg 09/01/18 12:00 09/04/18 16:35 Decadron Oral PO 1 mg Q6HR [facility] Administration Ferrous Sulfate 300 mg 09/04/18 12:00 09/04/18 16:35 Feosol PO 300 mg TID [facility] Administration Folic Acid 1 mg 08/31/18 09:00 09/04/18 12:51 Folic Acid PO 1 mg DAILY [facility] Administration Meropenem 1 gm/ Sodium 100 mls @ 200 mls/hr 08/31/18 00:00 09/04/18 13:19 Chloride IVPB 200 mls/hr Q12H [facility] Administration Protocol Anidulafungin 100 mg/ Sodium 130 mls @ 84 mls/hr 09/05/18 09:00 Chloride IVPB DAILY [facility] Vancomycin HCl 1,000 mg/ 250 mls @ 125 mls/hr 09/04/18 09:30 09/04/18 10:18 Sodium Chloride IVPB 125 mls/hr Q12HR [facility] Administration Sodium Chloride 1,000 mls @ 100 mls/hr 09/04/18 10:00 09/04/18 10:19 Saline 0.9% IV 100 mls/hr .Q10H [facility] Administration Amiodarone HCl 360 mg/ 200 mls @ 33.333 mls/hr 09/04/18 11:30 09/04/18 12:46 Dextrose/Water IV 09/04/18 17:29 1 mg/min .Q6H ONE 33.333 mls/hr Administration Protocol 1 MG/MIN Norepinephrine Bitartrate 32 250 mls @ 1.414 mls/hr 09/04/18 11:30 09/04/18 15:05 mg/ Sodium Chloride IV 0.36 mcg/kg/min .Q24H [facility] 10.18 mls/hr Titration Protocol 0.05 MCG/KG/MIN Propofol 1,000 mg/ IV Solution 100 mls @ 0 mls/hr 09/04/18 11:30 09/04/18 14:19 IV 50 mcg/kg/min .Q0M [facility] 18.098 mls/hr Titration Protocol Titrate Naloxone HCl 0.2 mg 08/30/18 15:09 Narcan IV Q2M PRN Opioid Reversal Pantoprazole Sodium 40 mg 09/04/18 12:00 09/04/18 12:58 Protonix IV 40 mg DAILY [facility] Administration Potassium Chloride 20 meq 08/30/18 21:00 09/04/18 12:58 K-Dur 20 PO 20 meq BID [facility] Administration Tramadol HCl 50 mg 08/30/18 19:11 09/04/18 02:01 Ultram PO 50 mg Q6HR PRN Administration Moderate Pain Intake and Output 09/04/18 09/04/18 09/04/18 06:59 14:59 22:59 Intake Total 4220.278 106.504 Output Total 400 50 Balance 3820.278 56.504 Intake: IV 4150 100 Anidulafungin 100 mg In 100 Sodium Chloride 0.9% 100 ml @ 84 mls/hr IVPB DAILY [facility] Rx#:[id number] Dextrose 5% in Water 100 100 ml @ 618 mls/hr IV .Q11M ONE with Amiodarone 300 mg Rx#:[id number] Meropenem 1 gm In Sodium 100 Chloride 0.9% 100 ml @ 200 mls/hr IVPB Q12H [facility] Rx#:[id number] Sodium Chloride 0.9% 1, 600 100 000 ml @ 100 mls/hr IV . Q10H [facility] Rx#:[id number] Sodium Chloride 0.9% 1, 3000 000 ml @ 999 mls/hr IV . Q1H1M [facility] Rx#:[id number] Vancomycin 1,000 mg In 250 Sodium Chloride 0.9% 250 ml @ 125 mls/hr IVPB Q12HR [facility] Rx#:[id number] Intake, IV Titration 70.278 6.504 Amount Norepinephrine 32 mg In 9.256 6.504 Sodium Chloride 0.9% 218 ml @ 0.05 MCG/KG/MIN 1. 414 mls/hr IV .Q24H [facility] Rx#:[id number] Propofol 1,000 mg In 61.022 Empty Bag 1 bag @ Titrate IV .Q0M [facility] Rx#: [id number] Output: Urine 400 50 09/04/18 07:30 09/04/18 07:30 EKG Interpretations (text) 1. EKG showed atrial fibrillation with rapid ventricular response Assessment and Plan (1) Paroxysmal atrial fibrillation with rapid ventricular response Current Visit: Yes Status: Acute Code(s): I48.0 - PAROXYSMAL ATRIAL FIBRILLATION SNOMED Code(s): 790303224 (2) Paroxysmal atrial fibrillation Current Visit: Yes Status: Acute Code(s): I48.0 - PAROXYSMAL ATRIAL FIBRILLATION SNOMED Code(s): 407951524 (3) Acute myelogenous leukemia Current Visit: Yes Status: Acute Priority: High Code(s): C92.00 - ACUTE MYELOBLASTIC LEUKEMIA, NOT HAVING ACHIEVED REMISSION SNOMED Code(s): 66268958 (4) Acute respiratory failure Current Visit: Yes Status: Acute Code(s): J96.00 - ACUTE RESPIRATORY FAILURE, UNSP W HYPOXIA OR HYPERCAPNIA SNOMED Code(s): 37283922 (5) Anemia Current Visit: Yes Status: Acute Code(s): D64.9 - ANEMIA, UNSPECIFIED SNOMED Code(s): 634041352 (6) Thrombocytopenia Current Visit: Yes Status: Acute Code(s): D69.6 - THROMBOCYTOPENIA, UNSPECIFIED SNOMED Code(s): 119087990 (7) Ischemic heart disease Current Visit: Yes Status: Acute Code(s): I25.9 - CHRONIC ISCHEMIC HEART DISEASE, UNSPECIFIED SNOMED Code(s): 703772715 Plan: We will continue with IV amiodarone. We'll hold antiplatelet agents. Continue with antibiotic therapy. Prognosis is guarded
--- NOTE | 2018-09-04 18:12 | ECHOF ---
Referral Reason:Increased SOB/tachycardia MEASUREMENTS -------- HEIGHT: 180.3 cm WEIGHT: 60.3 kg BP: 81/66 IVSd: 1.2 cm (0.6 - 1.1) LVIDd: 3.3 cm (3.9 - 5.3) LVPWd: 1.2 cm (0.6 - 1.1) EDV(Teich): 45 ml IVSs: 1.5 cm LVIDs: 2.8 cm LVPWs: 1.3 cm %IVS Thck: 29 % ESV(Teich): 28 ml EF(Teich): 36 % %FS: 17 % SV(Teich): 16 ml IVC: 11.29 mm LVLd A4C: 7.0 cm LVEDV MOD A4C: 96 ml LVLs A4C: 7.9 cm LVESV MOD A4C: 88 ml LVEF MOD A4C: 9 % SV MOD A4C: 8 ml LALs A4C: 4.0 cm LAAs A4C: 15.5 cm LAESV A-L A4C: 51 ml LAESV MOD A4C: 41 ml LALs A2C: 4.4 cm LAAs A2C: 13.1 cm LAESV A-L A2C: 33 ml LAESV MOD A2C: 30 ml LAESV(A-L): 43 ml LAESV Index (A-L): 24.25 ml/m Ao Diam: 2.8 cm (2.0 - 3.7) LA Diam: 3.3 cm (2.7 - 3.8) AV Cusp: 1.8 cm (1.5 - 2.6) EPSS: 1.4 cm MV E Tevin: 0.89 m/s MV DecT: 84 ms MV Dec [place]: 10.5 m/s MV A Tevin: 0.53 m/s MV E/A Ratio: 1.66 MV PHT: 24 ms MR Vmax: 3.82 m/s MR maxP.23 mmHg AV Vmax: 1.10 m/s AV maxP.86 mmHg TR Vmax: 2.15 m/s TR maxP.57 mmHg RAP: 5.00 mmHg RVSP: 23.57 mmHg MV EF SLOPE: 239.79 mm/s (70 - 150) MV EXCURSION: 14.58 mm (> 18.000) FINDINGS -------- Resting tachycardia (HR>100bpm). This was a technically good study. The left ventricular size is normal. There is mild concentric left ventricular hypertrophy. There is severe global hypokinesis of LV . Overall left ventricular systolic function is severely impair ed with, an EF between 20 - 25 %. The right ventricle is normal in size. The left atrial size is normal. Normal LA size by volume 22+/-6 ml/m2. The right atrial size is normal. Interatrial and interventricular septum intact. Aortic valve is trileaflet and is mildly thickened. The mitral valve leaflets are mildly thickened. Mild mitral annular calcification present. Mild-t o-moderate mitral regurgitation is present. Mild tricuspid regurgitation present. There is no evidence of pulmonary hypertension. The right v entricular systolic pressure, as measured by Doppler, is 23.57mmHg. There is no pulmonic regurgitation present. The aortic root size is normal. Normal inferior vena cava with normal inspiratory collapse consistent with estimated right atrial pre ssure of 5 mmHg. There is a trivial pericardial effusion present. CONCLUSIONS -------- 1. Resting tachycardia (HR>100bpm). 2. This was a technically good study. 3. The left ventricular size is normal. 4. There is mild concentric left ventricular hypertrophy. 5. There is severe global hypokinesis of LV . 6. Overall left ventricular systolic function is severely impaired with, an EF between 20 - 25 %. 7. The right ventricle is normal in size. 8. The left atrial size is normal. 9. Normal LA size by volume 22+/-6 ml/m2. 10. The right atrial size is normal. 11. Interatrial and interventricular septum intact. 12. Aortic valve is trileaflet and is mildly thickened. 13. The mitral valve leaflets are mildly thickened. 14. Mild mitral annular calcification present. 15. [id number] mitral regurgitation is present. 16. Mild tricuspid regurgitation present. 17. There is no evidence of pulmonary hypertension. 18. The right ventricular systolic pressure, as measured by Doppler, is 23.57mmHg. 19. There is no pulmonic regurgitation present. 20. The aortic root size is normal. 21. Normal inferior vena cava with normal inspiratory collapse consistent with estimated right atrial pressure of 5 mmHg. 22. There is a trivial pericardial effusion present. CUTTING MACHINE OPERATOR HELPER: Rachel Estrada RDCS
[2018-09-04] MEDS ORDERED: AMIODARONE 300 MG in DEXTROSE 5% IN WATER 250 ML IV SCH ×2 (18:30)
[2018-09-04] MEDS ORDERED: SODIUM CHLORIDE 0.9% 50 ML with VASOPRESSIN 20 UNIT IVPB SCH ×2 (20:30)
[2018-09-04 21:58] VITALS: TEMP 98
[2018-09-05] MEDS: PROPOFOL 1,000 MG in EMPTY BAG 1 BAG IV SCH (00:27)
[2018-09-05] MEDS: MAG HYDROX/AL HYDROX/SIMETH 30 ML, LIDOCAINE VISCOUS 30 ML, diphenhydrAMINE ELIXIR 75 M... PO SCH ×4 (00:27)
[2018-09-05] MEDS: DEXAMETHASONE ORAL 4 MG/ML VIAL PO SCH (00:27)
[2018-09-05] MEDS: MEROPENEM 1 GM in SODIUM CHLORIDE 0.9% 100 ML IVPB SCH (00:28)
[2018-09-05 02:06] LABS: ABG Oxygen Saturation 93.8 % (94-97); ABG PCO2 28 mmHg (35-45); ABG PO2 104 mmHg (83-108); ABG TCO2 5 mmol/L (19-24); Allen Test Performed? Yes
[2018-09-05 02:08] LABS: ABG HCO3 4 mmol/L (21-25)
[2018-09-05 03:11] VITALS: BP 70/50; PULSE 79; RESP 28
[2018-09-05] MEDS ORDERED: ANIDULAFUNGIN 100 MG in SODIUM CHLORIDE 0.9% 100 ML IVPB SCH (09:00)
--- NOTE | 2018-09-05 22:42 | P.PN ---
Subjective Progress Note Date: 09/04/18 Principal diagnosis: Septic shock secondary to pneumonia Acute hypoxic respiratory failure AML on oral chemotherapy This is a pleasant 62 years old male with past medical history of acute myelocytic leukemia, on chemotherapy, generalized weakness and congestive heart failure with with ejection fraction of 35%. Nonsustained V. tach. Patient was recently discharged from the hospital about 10 days ago where he has prolonged hospital course with pancytopenia, episodic fever, mainly low-grade. And generalized weakness. Patient was sent to the hospital and emergency room, a dvised by his oncologist. pt presents because he is been feeling weak, with coughing and bloody colored phlegm, however he denies chest pain or dyspnea , no abd pain , no diarrhea , no change in mental status or dizziness, and no urinary complaints On admission his blood pressure was in the low size 65/46. And 93/63. Tachycardia of 110-112. Respiratory to what 16/m and is saturating 96% on room air. With no fever on admission Labs showing pancytopenia with WBC of 0.8, hemoglobin 6.3, platelets 8. INR 1.3. Creatinine 1.29, sodium 135, glucose 122, bilirubin 1.9 and liver enzymes slightly elevated 120 to 150s. EKG showing sinus tachycardia at 120 BPM with QTC 505. Chest x-ray showing new masslike consolidation of the right lower lobe, suspicious for pneumonia d/w staff , pt is going to receive one unit of blood transfusion 08/31/2018 Patient today is awake and oriented, clinically looks similar to yesterday however his patellar has improved significantly. Patient was hypotensive overnight and needed 1 L of normal saline bolus. His blood pressure improved today and was on 2 and 107/65. Patient is running fever at 101.5 today. Risks of vitals are stable and he saturated 100% on room air. Patient still have some coughing with blood colored sputum. Labs still showing pancytopenia with improvement of hemoglobin up to 7.3. However WBC 0.5 and platelet 18. INR 1.4. Creatinine is within normal limits. Serum bilirubin and liver enzymes are mildly elevated but stable. Urinalysis is not suspicious of infection. Patient currently on meropenem, acyclovir and normal saline at 100 mL per hour 09/01/2018 Patient clinically the same with feeling generally weak but his cough and hemoptysis is significantly improved. No chest pain. His breathing quietly. He saturating 97% on room air. No change in her bowel habits or diarrhea. However patient has difficulty eating because of sores in his mouth. We ordered nystatin-call swish and spit for him. Bone marrow biopsy is still pending. 09/02/2018 Patient is alert, lying feeling generally weak and base. This allows some cough but no much phlegm or hemoptysis. No chest pain. Patient is tachycardic at . Blood pressure on the low side. We'll give him blood transfusion and EKG. WBC 0.9, hemoglobin 7.0 and platelets 6. Also will get that radiated platelet transfusion. Creatinine 0.7 and electrolytes are within normal limits. 09/03/2018 Patient is alert, generally weak similar to his baseline over the last few weeks. Distal cuff and with no hemoptysis which was resolved since admission. No pain in the abdomen or chest. Patient remains tachycardic at 04/16/2032, despite one blood transfusion yesterday. His blood pressure improved slightly after the . Patient is afebrile for more than 48 hours. WBC today is 3.2, hemoglobin 9.7, platelets are still pending. Creatinine 0.6. EKG was ordered. Patient currently on meropenem and acyclovir for febrile neutropenia and poss ible pneumonia, infectious disease team evaluated the patient. Continue gentle hydration. Case was discussed with oncology team as well. He had bone Nielsen biopsy done during this admission and result is pending. 09/04/2018 Patient was transferred to intensive care unit today morning. Patient developed worsening shortness of breath and became more hypoxemic and tachycardic. Patient is currently on mechanical ventilator. Chest x-ray showed dense right-sided infiltrate. Patient also went into new onset atrial fibrillation with rapid regular rate. Currently, To sinus rhythm. Patient was also started on amiodarone drip. Patient had bone marrow biopsy and suspicious for AML. Oncology is on board. Due to underlying medical problems and comorbid conditions with new onset acute respiratory failure and poor prognosis family has decided to transfer the patient to comfort care at this time. Current medications reviewed. Objective - Vital Signs Vital signs: Vital Signs Temp 97.7 F 09/04/18 16:00 Pulse 103 H 09/04/18 19:00 Resp 29 H 09/04/18 19:00 BP 78/51 09/04/18 09:30 Pulse Ox 98 09/04/18 19:00 Intake & Output 09/04/18 09/04/18 09/05/18 06:59 18:59 06:59 Intake Total 4732.014 100 Output Total 455 0 Balance 4277.014 100 Intake: IV 4550 100 Anidulafungin 100 mg In 100 Sodium Chloride 0.9% 100 ml @ 84 mls/hr IVPB DAILY [facility] Rx#:[id number] Dextrose 5% in Water 100 100 ml @ 618 mls/hr IV .Q11M ONE with Amiodarone 300 mg Rx#:[id number] Meropenem 1 gm In Sodium 100 Chloride 0.9% 100 ml @ 200 mls/hr IVPB Q12H [facility] Rx#:[id number] Sodium Chloride 0.9% 1, 1000 100 000 ml @ 100 mls/hr IV . Q10H [facility] Rx#:[id number] Sodium Chloride 0.9% 1, 3000 000 ml @ 999 mls/hr IV . Q1H1M ONE Rx#:[id number] Vancomycin 1,000 mg In 250 Sodium Chloride 0.9% 250 ml @ 125 mls/hr IVPB Q12HR [facility] Rx#:[id number] Intake, IV Titration 182.014 Amount Norepinephrine 32 mg In 47.997 Sodium Chloride 0.9% 218 ml @ 0.05 MCG/KG/MIN 1. 414 mls/hr IV .Q24H [facility] Rx#:[id number] Propofol 1,000 mg In 134.017 Empty Bag 1 bag @ Titrate IV .Q0M [facility] Rx#: [id number] Output: Urine 455 0 Other: Voiding Method Diaper Indwelling Catheter Incontinent # Voids 1 ABP, PAP, CO, CI - Last Documented Arterial Blood Pressure 99/48 - Exam PHYSICAL EXAMINATION: Patient currently sedated and on mechanical ventilator. HEENT: Normocephalic. Neck is supple. Pupils reactive. Nostrils clear. Oral cavity is moist. Ears reveal no drainage. Neck reveals no JVD, carotid bruits, or thyromegaly. CHEST EXAMINATION: Endotracheal tube in place. Trachea is central. Symmetrical expansion. Bilateral diffuse rhonchi and crackles. CARDIAC: Normal S1, S2 with no gallops. No murmurs ABDOMEN: Soft. Bowel sounds normal. No organomegaly. No abdominal bruits. Extremities: reveal no edema. No clubbing or cyanosis. Neurologically patient is currently sedated and intubated. No gross focal deficits noted Skin: No rash or skin lesions. Psychiatric: Could not be assessed Musculoskeletal: No joint swelling or deformity. - Labs CBC & Chem 7: 09/04/18 07:30 09/04/18 07:30 Labs: Abnormal Lab Results - Last 24 Hours (Table) 09/04/18 09/04/18 09/04/18 Range/Units 07:05 07:24 07:30 WBC 17.4 H (3.8-10.6) k/uL RBC 3.14 L (4.30-5.90) m/uL Hgb 9.4 L (13.0-17.5) gm/dL Hct 28.5 L (39.0-53.0) % RDW 15.9 H (11.5-15.5) % Plt Count 19 L* (150-450) k/uL Blast Cells % 13 H* % Neutrophils # (Manual) 0.00 L* (1.3-7.7) k/uL Monocytes # (Manual) 13.92 H (0-1.0) k/uL Blast Cells # (Man) 2.26 H (0) k/uL ABG pH (7.35-7.45) ABG pCO2 27 L (35-45) mmHg ABG pO2 55 L* (83-108) mmHg ABG HCO3 16 L (21-25) mmol/L ABG Total CO2 16 L (19-24) mmol/L ABG O2 Saturation 89.3 L (94-97) % Chloride (98-107) mmol/L Carbon Dioxide (22-30) mmol/L Glucose (74-99) mg/dL POC Glucose (mg/dL) 206 H (75-99) mg/dL Plasma Lactic Acid Jaylen (0.7-2.0) mmol/L Calcium (8.4-10.2) mg/dL 09/04/18 09/04/18 09/04/18 Range/Units 07:30 07:30 07:45 WBC (3.8-10.6) k/uL RBC (4.30-5.90) m/uL Hgb (13.0-17.5) gm/dL Hct (39.0-53.0) % RDW (11.5-15.5) % Plt Count (150-450) k/uL Blast Cells % % Neutrophils # (Manual) (1.3-7.7) k/uL Monocytes # (Manual) (0-1.0) k/uL Blast Cells # (Man) (0) k/uL ABG pH (7.35-7.45) ABG pCO2 (35-45) mmHg ABG pO2 (83-108) mmHg ABG HCO3 (21-25) mmol/L ABG Total CO2 (19-24) mmol/L ABG O2 Saturation (94-97) % Chloride 109 H (98-107) mmol/L Carbon Dioxide 17 L (22-30) mmol/L Glucose 211 H (74-99) mg/dL POC Glucose (mg/dL) 226 H (75-99) mg/dL Plasma Lactic Acid Jaylen 5.4 H* (0.7-2.0) mmol/L Calcium 7.4 L (8.4-10.2) mg/dL 09/04/18 09/04/18 09/04/18 Range/Units 09:26 12:00 17:01 WBC (3.8-10.6) k/uL RBC (4.30-5.90) m/uL Hgb (13.0-17.5) gm/dL Hct (39.0-53.0) % RDW (11.5-15.5) % Plt Count (150-450) k/uL Blast Cells % % Neutrophils # (Manual) (1.3-7.7) k/uL Monocytes # (Manual) (0-1.0) k/uL Blast Cells # (Man) (0) k/uL ABG pH 7.32 L 7.23 L (7.35-7.45) ABG pCO2 29 L (35-45) mmHg ABG pO2 123 H (83-108) mmHg ABG HCO3 15 L 15 L (21-25) mmol/L ABG Total CO2 16 L 16 L (19-24) mmol/L ABG O2 Saturation 97.1 H 98.0 H (94-97) % Chloride (98-107) mmol/L Carbon Dioxide (22-30) mmol/L Glucose (74-99) mg/dL POC Glucose (mg/dL) (75-99) mg/dL Plasma Lactic Acid Jaylen 2.6 H* (0.7-2.0) mmol/L Calcium (8.4-10.2) mg/dL Microbiology - Last 24 Hours (Table) 09/04/18 09:30 Bronchial Washings Culture - Preliminary Bronchoalviolar Lavage - Right 09/04/18 09:30 Acid Fast Bacilli Culture - Preliminary Bronchoalviolar Lavage - Right 08/30/18 20:05 Blood Culture - Preliminary Blood No Growth after 96 hours 08/30/18 19:55 Blood Culture - Preliminary Blood No Growth after 96 hours Assessment and Plan Assessment: Septic shock secondary to extensive right lower lobe pneumonia. Requiring pressor support Hypotension and tachycardia and the above Acute hypoxic respiratory failure. Currently on mechanical ventilator. New-onset atrial fibrillation with rapid ventricular rate is 88. Severe anemia Acute myelogenous leukemia, on oral chemotherapy extensive history with CLL treated successfully with chemotherapy treatment back in 2014 with subsequent recurrence Pancytopenia, secondary to above Fever, with neutropenia,. Right lower lobe pneumonia, hospital-acquired, on chest x-ray from 08/30/2018. Elevated liver function tests, improving gradually Generalized weakness. Improving history of Congestive heart failure - chronic systolic with ejection fraction of 35%-not in exacerbation recent Sustained V. tach - possibily due to hypomagnesemia, Heart rate is stable currently Coronary artery disease history of stent placement DVT prophylaxis with SCDs Plan: This is a pleasant 62 years old male presents with weakness, hypertension, related to his AML disease, pancytopenia and pneumonia versus lung metastases. Patient is currently on mechanical ventilator and pressor support. Continue with broad-spectrum antibiotics. Oncology, pulmonary and ID is following. Transfuse as needed Monitor lytes and vitals. DVT and GI prophylaxis. Further recommendations of the clinical course of the patient DVT prophylaxis: No heparin in view of thrombocytopenia GI Prophylaxis: Ppi PT/OT: Pending Prognosis is guarded 9 Time with Patient: Greater than 30
--- NOTE | 2018-09-05 22:42 | P.DS ---
Providers Date of admission: 08/30/18 15:09 Expected date of discharge: 09/05/18 Attending physician: Adry Cancino Consults: 08/30/18 15:10 Consult Physician Urgent Consulting Provider: Jeffry Andrade Consult Reason/Comments: Oncological care Do you want consulting provider notified?: Already Contacted 08/30/18 16:41 Consult Physician Stat Consulting Provider: Jona Corrales Consult Reason/Comments: pneumonia Do you want consulting provider notified?: Yes 09/03/18 19:34 Consult Physician Routine Consulting Provider: Camila Barajas Consult Reason/Comments: New rt pleural effusion Do you want consulting provider notified?: Yes 09/04/18 05:13 Consult Physician Urgent Consulting Provider: Lenny Paulson Consult Reason/Comments: positive troponin Do you want consulting provider notified?: Yes Primary care physician: Stated None Hospital Course: diagnosis Septic shock secondary to extensive right lower lobe pneumonia. Requiring pressor support Hypotension and tachycardia and the above Acute hypoxic respiratory failure. Currently on mechanical ventilator. New-onset atrial fibrillation with rapid ventricular rate is 88. Severe anemia Acute myelogenous leukemia, on oral chemotherapy extensive history with CLL treated successfully with chemotherapy treatment back in 2014 with subsequent recurrence Pancytopenia, secondary to above Fever, with neutropenia,. Right lower lobe pneumonia, hospital-acquired, on chest x-ray from 08/30/2018. Elevated liver function tests, improving gradually Generalized weakness. Improving history of Congestive heart failure - chronic systolic with ejection fraction of 35%-not in exacerbation recent Sustained V. tach - possibily due to hypomagnesemia, Heart rate is stable currently Coronary artery disease history of stent placement DVT prophylaxis with SCDs Hospital course. This is a pleasant 62 years old male with past medical history of acute myelocytic leukemia, on chemotherapy, generalized weakness and congestive heart failure with with ejection fraction of 35%. Nonsustained V. tach. Patient was recently discharged from the hospital about 10 days ago where he has prolonged hospital course with pancytopenia, episodic fever, mainly low-grade. And generalized weakness. Patient was sent to the hospital and emergency room, advised by his oncologist. pt presents because he is been feeling weak, with coughing and bloody colored phlegm, however he denies chest pain or dyspnea , no abd pain , no diarrhea , no change in mental status or dizziness, and no urinary complaints On admission his blood pressure was in the low size 65/46. And 93/63. Tachycardia of 110-112. Respiratory to what 16/m and is saturating 96% on room air. With no fever on admission Labs showing pancytopenia with WBC of 0.8, hemoglobin 6.3, platelets 8. INR 1.3. Creatinine 1.29, sodium 135, glucose 122, bilirubin 1.9 and liver enzymes slightly elevated 120 to 150s. EKG showing sinus tachycardia at 120 BPM with QTC 505. Chest x-ray showing new masslike consolidation of the right lower lobe, suspicious for pneumonia d/w staff , pt is going to receive one unit of blood transfusion 08/31/2018 Patient today is awake and oriented, clinically looks similar to yesterday however his patellar has improved significantly. Patient was hypotensive overnight and needed 1 L of normal saline bolus. His blood pressure improved today and was on 2 and 107/65. Patient is running fever at 101.5 today. Risks of vitals are stable and he saturated 100% on room air. Patient still have some coughing with blood colored sputum. Labs still showing pancytopenia with improvement of hemoglobin up to 7.3. However WBC 0.5 and platelet 18. INR 1.4. Creatinine is within normal limits. Serum bilirubin and liver enzymes are mildly elevated but stable. Urinalysis is not suspicious of infection. Patient currently on meropenem, acyclovir and normal saline at 100 mL per hour 09/01/2018 Patient clinically the same with feeling generally weak but his cough and hemoptysis is significantly improved. No chest pain. His breathing quietly. He saturating 97% on room air. No change in her bowel habits or diarrhea. However patient has difficulty eating because of sores in his mouth. We ordered nystatin-call swish and spit for him. Bone marrow biopsy is still pending. 09/02/2018 Patient is alert, lying feeling generally weak and base. This allows some cough but no much phlegm or hemoptysis. No chest pain. Patient is tachycardic at 04/04/2039. Blood pressure on the low side. We'll give him blood transfusion and EKG. WBC 0.9, hemoglobin 7.0 and platelets 6. Also will get that radiated platelet transfusion. Creatinine 0.7 and electrolytes are within normal limits. 09/03/2018 Patient is alert, generally weak similar to his baseline over the last few weeks. Distal cuff and with no hemoptysis which was resolved since admission. No pain in the abdomen or chest. Patient remains tachycardic at 04/16/2032, despite one blood transfusion yesterday. His blood pressure improved slightly after the . Patient is afebrile for more than 48 hours. WBC today is 3.2, hemoglobin 9.7, platelets are still pending. Creatinine 0.6. EKG was ordered. Patient currently on meropenem and acyclovir for febrile neutropenia and possible pneumonia, infectious disease team evaluated the patient. Continue gentle hydration. Case was discussed with oncology team as well. He had bone Nielsen biopsy done during this admission and result is pending. 09/04/2018 Patient was transferred to intensive care unit today morning. Patient developed worsening shortness of breath and became more hypoxemic and tachycardic. Patient is currently on mechanical ventilator. Chest x-ray showed dense right-sided infiltrate. Patient also went into new onset atrial fibrillation with rapid regular rate. Currently, To sinus rhythm. Patient was also started on amiodarone drip. Patient had bone marrow biopsy and suspicious for AML. Oncology is on board. Due to underlying medical problems and comorbid conditions with new onset acute respiratory failure and poor prognosis family has decided to transfer the p atient to comfort care. Patient on 09/05/2018 at 02:45. Family has been notified. Patient Condition at Discharge: Undetermined Plan - Discharge Summary Discharge Rx Participant: No New Discharge Prescriptions: New Levofloxacin [Levaquin] 500 mg PO DAILY #7 tab Acyclovir [Zovirax] 400 mg PO TID #90 ml No Action Folic Acid 1 mg PO DAILY Atorvastatin [Lipitor] 80 mg PO DAILY Ipratropium-Albuterol Nebulize [Duoneb 0.5 mg-3 mg/3 ml Soln] 3 ml INHALATION RT-QID PRN ampul.neb PRN Reason: Shortness Of Breath Or Wheezing Ferrous Sulfate [Iron (65 MG Elemental)] 325 mg PO TID tab Potassium Chloride ER [K-Dur 20] 20 meq PO BID tab.er.prt Mag Hydrox/Al Hydrox/Simeth [Maalox] 30 ml PO Q4HR cup Nystatin 100,000 Unit/ml Susp [Mycostatin Oral Susp] 3,000,000 unit PO Q4HR cup Pantoprazole [Protonix] 40 mg PO AC-BRKFST tablet. Acetaminophen Tab [Tylenol] 500 mg PO Q4H PRN tab PRN Reason: Mild Pain Or Fever > 100.5 traMADol HCl [Ultram] 50 mg PO Q6HR PRN tab PRN Reason: Moderate Pain Ascorbic Acid [Vitamin C] 500 mg PO DAILY tab ALPRAZolam [Xanax] 0.25 mg PO TID PRN #6 tab PRN Reason: Anxiety Lidocaine Viscous [Xylocaine Viscous 2%] 30 ml PO Q4HR PRN ml PRN Reason: Pain Allopurinol [Zyloprim] 300 mg PO DAILY tab Metoprolol Succinate (ER) [Toprol XL] 25 mg PO DAILY Venetoclax [Venclexta] 400 mg PO DAILY Discharge Medication List Folic Acid 1 mg PO DAILY 02/18/17 [History] Atorvastatin [Lipitor] 80 mg PO DAILY 06/02/18 [History] ALPRAZolam [Xanax] 0.25 mg PO TID PRN #6 tab 08/20/18 [Rx] Acetaminophen Tab [Tylenol] 500 mg PO Q4H PRN tab 08/20/18 [Rx] Allopurinol [Zyloprim] 300 mg PO DAILY tab 08/20/18 [Rx] Ascorbic Acid [Vitamin C] 500 mg PO DAILY tab 08/20/18 [Rx] Ferrous Sulfate [Iron (65 MG Elemental)] 325 mg PO TID tab 08/20/18 [Rx] Ipratropium-Albuterol Nebulize [Duoneb 0.5 mg-3 mg/3 ml Soln] 3 ml INHALATION RT-QID PRN ampul.neb 08/20/18 [Rx] Lidocaine Viscous [Xylocaine Viscous 2%] 30 ml PO Q4HR PRN ml 08/20/18 [Rx] Mag Hydrox/Al Hydrox/Simeth [Maalox] 30 ml PO Q4HR cup 08/20/18 [Rx] Nystatin 100,000 Unit/ml Susp [Mycostatin Oral Susp] 3,000,000 unit PO Q4HR cup 08/20/18 [Rx] Pantoprazole [Protonix] 40 mg PO AC-BRKFST tablet. 08/20/18 [Rx] Potassium Chloride ER [K-Dur 20] 20 meq PO BID tab.er.prt 08/20/18 [Rx] traMADol HCl [Ultram] 50 mg PO Q6HR PRN tab 08/20/18 [Rx] Metoprolol Succinate (ER) [Toprol XL] 25 mg PO DAILY 08/30/18 [History] Acyclovir [Zovirax] 400 mg PO TID #90 ml 08/31/18 [Rx] Levofloxacin [Levaquin] 500 mg PO DAILY #7 tab 08/31/18 [Rx] Venetoclax [Venclexta] 400 mg PO DAILY 09/03/18 [History] Follow up Appointment(s)/Referral(s): None,Stated [Primary Care Provider] - 1-2 days Discharge Disposition: - Preliminary Cause of Preliminary Cause of : Septic shock secondary to pneumonia
[2018-09-07 07:48] LABS: ABG PH <7.00 (7.35-7.45)
== END 2018-09-05 05:22 | disposition expired | DRG 208 ==
LOC: EC 11:52 → 3NMEDONC 15:09 → 3SCARD 09-04 07:10 → 2SICU 09-04 07:43
PROVIDERS: ADMIT Internal Medicine; ATTEND Internal Medicine
PROC: 30233R1 Transfusion of Nonautologous Platelets into Peripheral Vein, Percutaneous Approach (ICD-10-PCS; 2018-08-30)
PROC: 30233N1 Transfusion of Nonautologous Red Blood Cells into Peripheral Vein, Percutaneous Approach (ICD-10-PCS; 2018-08-30)
PROC: 07DR3ZX Extraction of Iliac Bone Marrow, Percutaneous Approach, Diagnostic (ICD-10-PCS; 2018-08-31)
PROC: 5A1935Z Respiratory Ventilation, Less than 24 Consecutive Hours (ICD-10-PCS; principal; 2018-09-04)
PROC: 06HM33Z Insertion of Infusion Device into Right Femoral Vein, Percutaneous Approach (ICD-10-PCS; 2018-09-04)
PROC: 0BH17EZ Insertion of Endotracheal Airway into Trachea, Via Natural or Artificial Opening (ICD-10-PCS; 2018-09-04)
PROC: 04HY32Z Insertion of Monitoring Device into Lower Artery, Percutaneous Approach (ICD-10-PCS; 2018-09-04)
PROC: 4A133B1 Monitoring of Arterial Pressure, Peripheral, Percutaneous Approach (ICD-10-PCS; 2018-09-04)
PROC: 4A133J1 Monitoring of Arterial Pulse, Peripheral, Percutaneous Approach (ICD-10-PCS; 2018-09-04)
PROC: 0B9D8ZX Drainage of Right Middle Lung Lobe, Via Natural or Artificial Opening Endoscopic, Diagnostic (ICD-10-PCS; 2018-09-04)
DX: J15.6 Pneumonia due to other Gram-negative bacteria (principal); D61.810 Antineoplastic chemotherapy induced pancytopenia; J96.01 Acute respiratory failure with hypoxia; A41.50 Gram-negative sepsis, unspecified; R65.21 Severe sepsis with septic shock; C92.00 Acute myeloblastic leukemia, not having achieved remission; I50.22 Chronic systolic (congestive) heart failure; C83.30 Diffuse large B-cell lymphoma, unspecified site; I47.2 Ventricular tachycardia; Z66 Do not resuscitate; Z51.5 Encounter for palliative care; Y95 Nosocomial condition; D70.9 Neutropenia, unspecified; T45.1X5A Adverse effect of antineoplastic and immunosuppressive drugs, initial encounter; I25.10 Atherosclerotic heart disease of native coronary artery without angina pectoris; I25.82 Chronic total occlusion of coronary artery; K13.79 Other lesions of oral mucosa; K21.9 Gastro-esophageal reflux disease without esophagitis; I11.0 Hypertensive heart disease with heart failure; I48.0 Paroxysmal atrial fibrillation; R04.0 Epistaxis; R50.81 Fever presenting with conditions classified elsewhere; Z79.899 Other long term (current) drug therapy; I25.2 Old myocardial infarction; Z87.01 Personal history of pneumonia (recurrent); Z95.5 Presence of coronary angioplasty implant and graft; Z87.891 Personal history of nicotine dependence; Z80.3 Family history of malignant neoplasm of breast; Z81.1 Family history of alcohol abuse and dependence
CPT/HCPCS: 36415; 36430; 36600; 38222; 71045; 71046; 80048; 80053; 81001; 82805; 83605; 83615; 83735; 83880; 84100; 84443; 84484; 84550; 85025; 85610; 85730; 86850; 86900; 86901; 86920; 87040; 87070; 87077; 87102; 87107; 87116; 87186; 87205; 87206; 87252; 87496; 87498; 87502; 87529; 87634; 87798; 88108; 88305; 89050; 93005; 93306; 94002; 94003; 94640; 96360; 96361; 99291